=== PATIENT | female | born 1940 | race Caucasian/White ===

== ENCOUNTER → 2016-09-07 | Outpatient (CLI) | payer MEDICARE ==
[2016-09-07 09:48] LABS: CH 30.4; CHCM 32.3; HCT 40.5 % (34.0-46.0); HGB 12.6 gm/dL (11.4-16.0); MCH 29.4 pg (25.0-35.0); MCV 94.7 fL (80.0-100.0); Mean Platelet Volume 7.4; RBC 4.28 m/uL (3.80-5.40); RDW 15.5 % (11.5-15.5); WBC 8.4 k/uL (3.8-10.6)
[2016-09-07 10:06] LABS: Particle Count 1145; UA Billing (MACRO vs. MICRO) MICRO
[2016-09-07 11:38] LABS: Calcium 9.8 mg/dL (8.4-10.2); Magnesium 1.8 mg/dL (1.6-2.3); Phosphorous 3.6 mg/dL (2.5-4.5); Potassium 4.6 mmol/L (3.5-5.1)
[2016-09-07 11:46] LABS: Creatinine,Urine Random 165.5 mg/dL
[2016-09-07 11:47] LABS: % Iron Saturation 19.3 % (20-50)
== END | disposition home or self-care (01) ==
LOC: LABWHC1 09:01
PROVIDERS: ATTEND Nurse Practitioner Family
DX: N18.3 Chronic kidney disease, stage 3 (moderate) (principal); D64.9 Anemia, unspecified; N25.81 Secondary hyperparathyroidism of renal origin; N39.0 Urinary tract infection, site not specified
CPT/HCPCS: 36415; 80048; 81001; 82306; 82570; 82728; 83540; 83550; 83735; 83970; 84100; 84156; 84550; 85027

== ENCOUNTER → 2016-09-10 | Outpatient (CLI) | payer MEDICARE ==
--- NOTE | 2016-09-13 06:55 | XR ---
EXAMINATION TYPE: XR cervical spine comp DATE OF EXAM ORDERED: 09/10/2016 10:31 AM HISTORY: Left arm pain. COMPARISON: Previous study dated 08/27/2013. FINDINGS: Vertebral body height and alignment are maintained. Atlantoaxial relationships are not halie ntified. The spaces are well-maintained. Intervertebral foramina are well maintained. There is mild u ncovertebral joint disease. IMPRESSION: 1. NO ACUTE OSSEOUS LESION. 2. MINIMAL DEGENERATIVE CHANGE.
== END | disposition home or self-care (01) ==
LOC: RADXRYALE 10:16
PROVIDERS: ATTEND Family Medicine
DX: M47.812 Spondylosis without myelopathy or radiculopathy, cervical region (principal)
CPT/HCPCS: 72050

== ENCOUNTER → 2017-01-04 | Outpatient (CLI) | payer MEDICARE ==
[2017-01-04 09:13] LABS: Basophils # (A) 0.1 k/uL (0-0.2); Basophils % (A) 1 %; CH 30.6; CHCM 33.1; Eosinophils # (A) 0.3 k/uL (0-0.7); Eosinophils % (A) 4 %; HCT 40.5 % (34.0-46.0); HDW 2.69; Luc # (Auto) 0.23; Luc % (Auto) 3; Lymphocytes # (A) 1.5 k/uL (1.0-4.8); Lymphocytes % (A) 22 %; MCHC 32.2 g/dL (31.0-37.0); MCV 93.1 fL (80.0-100.0); Mean Platelet Volume 6.7; Monocytes # (A) 0.4 k/uL (0-1.0); Monocytes % (A) 5 %; Neutrophils # (A) 4.4 k/uL (1.3-7.7); Neutrophils % (A) 65 %; RBC 4.35 m/uL (3.80-5.40); RDW 15.7 % (11.5-15.5); WBC 6.8 k/uL (3.8-10.6); WBC (Perox) 6.91
[2017-01-04 10:04] LABS: Appearance,Urine Cloudy (Clear); Bacteria,Urine Moderate /hpf; Bilirubin,Urine Negative (Negative); Glucose,Urine (UA) Negative (Negative); Ketones,Urine Negative (Negative); Leukocyte Esterase,Urine Large (Negative); Mucus,Urine Rare /hpf; Nitrite,Urine Negative (Negative); PH, Urine 5.5 (5.0-8.0); Particle Count 6372; Protein,Urine Trace (Negative); RBC,Urine 2 /hpf (0-5); Specific Gravity,Urine 1.015 (1.001-1.035); Squamous Epithelial Cell,Urine 5 /hpf (0-4); UA Billing (MACRO vs. MICRO) MICRO; Urobilinogen,Urine <2.0 mg/dL (<2.0); WBC,Urine 122 /hpf (0-5)
[2017-01-04 10:55] LABS: Calcium 9.8 mg/dL (8.4-10.2); Magnesium 1.8 mg/dL (1.6-2.3); Phosphorous 3.5 mg/dL (2.5-4.5); Potassium 4.5 mmol/L (3.5-5.1); Uric Acid 5.4 mg/dL (3.7-7.4)
[2017-01-04 11:06] LABS: % Iron Saturation 24.7 % (20-50)
[2017-01-06 11:15] LABS: Mis test requested (Blood) Kappa/Lambda FLC
== END | disposition home or self-care (01) ==
LOC: LABWHC1 08:42
PROVIDERS: ATTEND Internal Medicine Nephrology
DX: D47.2 Monoclonal gammopathy (principal); I67.89 Other cerebrovascular disease; E78.5 Hyperlipidemia, unspecified; I10 Essential (primary) hypertension; N18.4 Chronic kidney disease, stage 4 (severe); D50.9 Iron deficiency anemia, unspecified; E55.9 Vitamin D deficiency, unspecified; M10.9 Gout, unspecified; N39.0 Urinary tract infection, site not specified
CPT/HCPCS: 36415; 80048; 81001; 82306; 82728; 82784; 83540; 83550; 83735; 83970; 84100; 84165; 84550; 85025; 86334; 86335

== ENCOUNTER → 2017-01-28 | Outpatient (CLI) | payer MEDICARE ==
--- NOTE | 2017-01-28 15:12 | US ---
EXAMINATION TYPE: US kidneys/renal and bladder DATE OF EXAM: 01/28/2017 COMPARISON: NONE CLINICAL HISTORY: N18.4 CKD. EXAM MEASUREMENTS: Right Kidney: 11.2 x 5.3 x 5.6 cm Left Kidney: 12.1 x 5.1 x 6.4 cm Right Kidney: difficult to see, blends in with surrounding tissue, multiple cystic areas throughout. Left Kidney: difficult to see, blends in with surrounding tissue, multiple cystic areas throughout. Bladder: wnl There is no evidence for hydronephrosis at this point in time. Mild renal parenchymal thinning No nep hrolithiasis is seen. Multiple cortical cysts are noted. The urinary bladder is anechoic. Bilateral ureteral jets are seen. IMPRESSION: Renal parenchymal thinning with multiple cortical cysts noted.
== END | disposition home or self-care (01) ==
LOC: RADUSWWP 14:06
PROVIDERS: ATTEND Internal Medicine Nephrology
DX: N28.1 Cyst of kidney, acquired (principal)
CPT/HCPCS: 76770

== ENCOUNTER → 2017-04-05 | Outpatient (CLI) | payer MEDICARE ==
[2017-04-05 09:36] LABS: Anisocytosis Slight; Basophils # (A) 0.1 k/uL (0-0.2); Basophils % (A) 1 %; CHCM 33.4; Eosinophils # (A) 0.4 k/uL (0-0.7); Eosinophils % (A) 5 %; HCT 43.9 % (34.0-46.0); HDW 2.62; HGB 14.2 gm/dL (11.4-16.0); Luc # (Auto) 0.17; Luc % (Auto) 3; Lymphocytes # (A) 1.6 k/uL (1.0-4.8); Lymphocytes % (A) 23 %; MCH 30.2 pg (25.0-35.0); MCHC 32.3 g/dL (31.0-37.0); MCV 93.3 fL (80.0-100.0); Mean Platelet Volume 7.6; Monocytes # (A) 0.4 k/uL (0-1.0); Monocytes % (A) 6 %; Neutrophils # (A) 4.3 k/uL (1.3-7.7); Neutrophils % (A) 62 %; RDW 16.5 % (11.5-15.5); WBC 6.8 k/uL (3.8-10.6); WBC (Perox) 6.98
[2017-04-05 09:52] LABS: Appearance,Urine Clear (Clear); Bilirubin,Urine Negative (Negative); Glucose,Urine (UA) Negative (Negative); Ketones,Urine Negative (Negative); Leukocyte Esterase,Urine Trace (Negative); Mucus,Urine Rare /hpf; Nitrite,Urine Negative (Negative); Particle Count 2156; Protein,Urine Trace (Negative); Specific Gravity,Urine 1.015 (1.001-1.035); Squamous Epithelial Cell,Urine 6 /hpf (0-4); UA Billing (MACRO vs. MICRO) MICRO; Urobilinogen,Urine <2.0 mg/dL (<2.0); WBC,Urine 2 /hpf (0-5)
[2017-04-05 09:54] LABS: Calcium 10.3 mg/dL (8.4-10.2); Magnesium 1.8 mg/dL (1.6-2.3); Phosphorous 4.3 mg/dL (2.5-4.5); Potassium 4.4 mmol/L (3.5-5.1); Uric Acid 6.3 mg/dL (3.7-7.4)
[2017-04-05 10:03] LABS: % Iron Saturation 19.9 % (20-50)
== END | disposition home or self-care (01) ==
LOC: LABWHC1 08:52
PROVIDERS: ATTEND Nurse Practitioner Family
DX: N18.4 Chronic kidney disease, stage 4 (severe) (principal); E55.9 Vitamin D deficiency, unspecified; D50.9 Iron deficiency anemia, unspecified; N25.81 Secondary hyperparathyroidism of renal origin; M10.9 Gout, unspecified; N39.0 Urinary tract infection, site not specified
CPT/HCPCS: 36415; 80048; 81001; 82306; 82728; 83540; 83550; 83735; 83970; 84100; 84550; 85025

== ENCOUNTER → 2017-06-06 | Outpatient (CLI) | payer MEDICARE ==
--- NOTE | 2017-06-06 21:36 | XR ---
EXAMINATION TYPE: XR chest 2V DATE OF EXAM: 06/06/2017 COMPARISON: 05/27/2017 HISTORY: 76-year-old female with shortness of breath, Hospital follow-up TECHNIQUE: Frontal and lateral views FINDINGS: Heart is upper limits of normal in size. Mild elongation of the thoracic aorta. Mild interstitial pro minence has a chronic appearance. Strandy atelectasis left base. No consolidation or pleural effusion . IMPRESSION: No acute cardiopulmonary processes.
== END | disposition home or self-care (01) ==
LOC: RADXRYALE 09:36
PROVIDERS: ATTEND Physician Assistant Medical
DX: R06.02 Shortness of breath (principal)
CPT/HCPCS: 71020

== ENCOUNTER → 2017-06-11 | Outpatient (CLI) | payer MEDICARE | END | disposition home or self-care (01) | LOC: LABWHC1 09:00 | PROVIDERS: ATTEND Internal Medicine Nephrology | DX: E87.2 Acidosis (principal) | CPT/HCPCS: 36415; 83605 ==

== ENCOUNTER → 2017-08-23 | Outpatient (CLI) | payer MEDICARE ==
--- NOTE | 2017-08-23 11:22 | BD ---
EXAMINATION TYPE: MG DEXA axial skeleton. DATE OF EXAM: 08/23/2017 CLINICAL HISTORY: Height: 64 inches Weight: 184 FRAX RISK QUESTIONS: Alcohol (3 or more units per day): no Family History (Parent hip fracture): mother did not...unsure about father Glucocorticoids (More than 3mos): not now (Ex: prednisone, prednisolone, methylprednisolone, dexamethasone, and hydrocortisone). History of Fracture in Adulthood: no Secondary Osteoporosis: 1. Type 1 Diabetes: no 2. Hyperthyroidism: no 3. Menopause before 45: no 4. Malnutrition: no 5. Chronic liver disease: no Rheumatoid Arthritis: no Current Tobacco Use: no RISK FACTORS HISTORY OF: Family History of Osteoporosis: not to knowledge of patient Active: yes Diet low in dairy products/other sources of calcium: no Postmenopausal woman: yes Take estrogen and/or progesterone medications: not now How long: age 55 -71 Lost more than 2 inches in height since high school: no Frequent falls: no Poor Health: no Hyperparathyroidism: no Adrenal Insufficiency: no MEDICATIONS: Prednisone or other steroids: no Thyroid Medications: no Osteoporosis Medications: no Additional Medications: Vitamin D EXAM MEASUREMENTS: Bone mineral densitometry was performed using the [employer] System. Bone mineral density as measured about the Lumbar spine is: ----- L1-L4(G/cm2): 1.524 T Score Values are as follows: ----- L2: 2.5 ----- L3: 4.1 ----- L4: 2.9 ----- L1-L4: 2.9 Bone mineral density has: Increased 0.6% since study of: 04/18/2015 Bone mineral density about the R hip (g/cm2): 0.833 Bone mineral density about the L hip (g/cm2): 0.808 T Score values are as follows: -----R Neck: -1.5 -----L Neck: -1.7 -----R Total: -1.2 -----L Total: -0.9 Bone mineral density has: Decreased -1.7% since study of: 04/18/2015 IMPRESSION: No evidence for osteoporosis or osteopenia. NOTE: T-SCORE=SD OF THE YOUNG ADULT MEAN.
--- NOTE | 2017-08-24 13:33 | MM ---
Reason for exam: screening (asymptomatic). Last mammogram was performed 2 years and 4 months ago. History: Patient is postmenopausal. Family history of premenopausal breast cancer in maternal aunt. Benign excisional biopsy of the left breast, September 02, 1997. Taking estrogen for 16 years 5 months beginning at age 55. Physical Findings: A clinical breast exam by your physician is recommended on an annual basis and results should be correlated with mammographic findings. MG 3D Screening Mammo W/Cad Bilateral CC and MLO view(s) were taken. Prior study comparison: April 18, 2015, bilateral MG screening mammo w CAD. July 24, 2012, bilateral digital screening mammo w/CAD. There are scattered fibroglandular densities. There is no discrete abnormality. ASSESSMENT: Negative, BI-RAD 1 RECOMMENDATION: Routine screening mammogram of both breasts in 1 year.
== END | disposition home or self-care (01) ==
LOC: RADMAMWWP 09:55
PROVIDERS: ATTEND Obstetrics & Gynecology
DX: Z12.31 Encounter for screening mammogram for malignant neoplasm of breast (principal); M81.0 Age-related osteoporosis without current pathological fracture
CPT/HCPCS: 77063; 77067; 77080

== ENCOUNTER → 2017-10-06 | Outpatient (CLI) | payer MEDICARE ==
[2017-10-06 08:51] LABS: Anisocytosis Slight; Basophils # (A) 0.1 k/uL (0-0.2); Basophils % (A) 1 %; Eosinophils # (A) 0.4 k/uL (0-0.7); Eosinophils % (A) 5 %; HCT 40.6 % (34.0-46.0); HGB 12.7 gm/dL (11.4-16.0); Lymphocytes # (A) 1.7 k/uL (1.0-4.8); Lymphocytes % (A) 21 %; MCHC 31.2 g/dL (31.0-37.0); Mean Platelet Volume 7.1; Monocytes # (A) 0.4 k/uL (0-1.0); Monocytes % (A) 6 %; Neutrophils # (A) 5.1 k/uL (1.3-7.7); Neutrophils % (A) 66 %; Platelet Count 299 k/uL (150-450); RBC 4.53 m/uL (3.80-5.40); RDW 16.3 % (11.5-15.5); WBC 7.8 k/uL (3.8-10.6)
[2017-10-06 08:56] LABS: Appearance,Urine Cloudy (Clear); Bacteria,Urine Moderate /hpf; Bilirubin,Urine Negative (Negative); Blood,Urine Negative (Negative); Color,Urine Yellow; Glucose,Urine (UA) Negative (Negative); Ketones,Urine Negative (Negative); Leukocyte Esterase,Urine Large (Negative); Mucus,Urine Rare /hpf; PH, Urine 5.5 (5.0-8.0); Protein,Urine Trace (Negative); Specific Gravity,Urine 1.013 (1.001-1.035); Squamous Epithelial Cell,Urine 31 /hpf (0-4); Urobilinogen,Urine <2.0 mg/dL (<2.0); WBC,Urine >182 /hpf (0-5)
[2017-10-06 08:58] LABS: MCV 89.8 fL (80.0-100.0)
[2017-10-06 09:05] LABS: Calcium 9.8 mg/dL (8.4-10.2); Phosphorus 3.6 mg/dL (2.5-4.5); Potassium 4.5 mmol/L (3.5-5.1); Uric Acid 5.5 mg/dL (3.7-7.4)
[2017-10-06 16:55] LABS: Parathyroid Hormone Intact 109.8 pg/mL (14.0-72.0)
[2017-10-06 16:59] LABS: Iron Saturation 19.03 (12.00-45.00)
== END | disposition home or self-care (01) ==
LOC: LABWHC1 08:25
PROVIDERS: ATTEND Nurse Practitioner Family
DX: N39.0 Urinary tract infection, site not specified (principal); M10.9 Gout, unspecified; N18.4 Chronic kidney disease, stage 4 (severe); D50.9 Iron deficiency anemia, unspecified; N25.81 Secondary hyperparathyroidism of renal origin
CPT/HCPCS: 36415; 80048; 81001; 82306; 82728; 83540; 83550; 83735; 83970; 84100; 84550; 85025

== ENCOUNTER → 2018-01-19 | Outpatient (CLI) | payer MEDICARE ==
[2018-01-19 09:25] LABS: Basophils # (A) 0.1 k/uL (0-0.2); Basophils % (A) 1 %; Eosinophils # (A) 0.4 k/uL (0-0.7); Eosinophils % (A) 5 %; HCT 39.3 % (34.0-46.0); HGB 12.9 gm/dL (11.4-16.0); Lymphocytes # (A) 1.6 k/uL (1.0-4.8); Lymphocytes % (A) 22 %; MCH 29.8 pg (25.0-35.0); MCHC 32.7 g/dL (31.0-37.0); MCV 91.2 fL (80.0-100.0); Mean Platelet Volume 7.3; Monocytes # (A) 0.5 k/uL (0-1.0); Monocytes % (A) 7 %; Neutrophils # (A) 4.9 k/uL (1.3-7.7); Neutrophils % (A) 64 %; Platelet Count 272 k/uL (150-450); RBC 4.31 m/uL (3.80-5.40); RDW 15.9 % (11.5-15.5); WBC 7.6 k/uL (3.8-10.6)
[2018-01-19 09:28] LABS: Appearance,Urine Cloudy (Clear); Bacteria,Urine Occasional /hpf; Bilirubin,Urine Negative (Negative); Blood,Urine Negative (Negative); Color,Urine Yellow; Glucose,Urine (UA) Negative (Negative); Ketones,Urine Negative (Negative); Leukocyte Esterase,Urine Large (Negative); Mucus,Urine Rare /hpf; Nitrite,Urine Negative (Negative); PH, Urine 5.5 (5.0-8.0); Protein,Urine Trace (Negative); RBC,Urine 1 /hpf (0-5); Specific Gravity,Urine 1.014 (1.001-1.035); Squamous Epithelial Cell,Urine 17 /hpf (0-4); Urobilinogen,Urine <2.0 mg/dL (<2.0); WBC,Urine 76 /hpf (0-5)
[2018-01-19 09:51] LABS: Albumin 4.2 g/dL (3.5-5.0); Calcium 9.6 mg/dL (8.4-10.2); Magnesium 1.7 mg/dL (1.6-2.3); Phosphorus 3.6 mg/dL (2.5-4.5); Potassium 4.7 mmol/L (3.5-5.1); Uric Acid 5.2 mg/dL (3.7-7.4)
[2018-01-19 16:29] LABS: Iron Saturation 23.05 (12.00-45.00)
[2018-01-19 16:37] LABS: Vitamin D 25 Hydroxy 37.5 ng/mL (30.0-100.0)
[2018-01-19 17:25] LABS: Parathyroid Hormone Intact 174.4 pg/mL (14.0-72.0)
== END | disposition home or self-care (01) ==
LOC: LABWHC1 08:47
PROVIDERS: ATTEND Internal Medicine Nephrology
DX: E55.9 Vitamin D deficiency, unspecified (principal); N18.4 Chronic kidney disease, stage 4 (severe); D63.1 Anemia in chronic kidney disease; M10.9 Gout, unspecified; N39.0 Urinary tract infection, site not specified
CPT/HCPCS: 36415; 80048; 81001; 82040; 82306; 82728; 83540; 83550; 83735; 83970; 84100; 84550; 85025

== ENCOUNTER → 2018-04-20 | Outpatient (CLI) | payer MEDICARE ==
[2018-04-20 11:00] LABS: Albumin 4.1 g/dL (3.5-5.0); Calcium 9.5 mg/dL (8.4-10.2); Magnesium 1.8 mg/dL (1.6-2.3); Phosphorus 3.7 mg/dL (2.5-4.5); Potassium 4.7 mmol/L (3.5-5.1); Uric Acid 6.1 mg/dL (3.7-7.4)
[2018-04-20 17:36] LABS: Iron Saturation 22.54 (12.00-45.00)
[2018-04-20 17:45] LABS: Vitamin D 25 Hydroxy 40.6 ng/mL (30.0-100.0)
[2018-04-20 19:16] LABS: Parathyroid Hormone Intact 165.6 pg/mL (14.0-72.0)
== END | disposition home or self-care (01) ==
LOC: LABWHC1 09:16
PROVIDERS: ATTEND Nurse Practitioner Family
DX: E55.9 Vitamin D deficiency, unspecified (principal); D63.1 Anemia in chronic kidney disease; N18.4 Chronic kidney disease, stage 4 (severe); M10.9 Gout, unspecified
CPT/HCPCS: 36415; 80048; 82040; 82306; 82728; 83540; 83550; 83735; 83970; 84100; 84550

== ENCOUNTER → 2018-08-03 | Outpatient (CLI) | payer MEDICARE ==
[2018-08-03 10:25] LABS: Anisocytosis Slight; Basophils # (A) 0.1 k/uL (0-0.2); Basophils % (A) 1 %; Eosinophils # (A) 0.5 k/uL (0-0.7); Eosinophils % (A) 6 %; HCT 40.8 % (34.0-46.0); HGB 12.7 gm/dL (11.4-16.0); Lymphocytes # (A) 1.6 k/uL (1.0-4.8); Lymphocytes % (A) 19 %; MCH 29.2 pg (25.0-35.0); MCHC 31.1 g/dL (31.0-37.0); MCV 93.8 fL (80.0-100.0); Monocytes # (A) 0.5 k/uL (0-1.0); Monocytes % (A) 6 %; Neutrophils # (A) 5.4 k/uL (1.3-7.7); Neutrophils % (A) 66 %; Platelet Count 296 k/uL (150-450); RBC 4.34 m/uL (3.80-5.40); RDW 16.1 % (11.5-15.5); WBC 8.2 k/uL (3.8-10.6)
[2018-08-03 17:16] LABS: Parathyroid Hormone Intact 176.4 pg/mL (14.0-72.0)
[2018-08-03 17:18] LABS: Albumin 4.3 g/dL (3.80-4.90); Anion Gap 10.3 mmol/L (4.00-12.00); Calcium 9.1 mg/dL (8.7-10.3); Carbon Dioxide 19.7 mmol/L (21.6-31.8); Magnesium 1.8 mg/dL (1.5-2.4); Phosphorus 3.5 mg/dL (2.4-5.1); Potassium 4.4 mmol/L (3.5-5.5); Uric Acid 5.4 mg/dL (2.9-7.7)
[2018-08-03 17:33] LABS: Iron Saturation 27.07 (12.00-45.00)
== END ==
LOC: LABWHC1 09:02
PROVIDERS: ATTEND Nurse Practitioner Family
DX: E55.9 Vitamin D deficiency, unspecified (principal); N25.81 Secondary hyperparathyroidism of renal origin; D63.1 Anemia in chronic kidney disease; N18.4 Chronic kidney disease, stage 4 (severe)
CPT/HCPCS: 36415; 80048; 82040; 82728; 83540; 83550; 83735; 83970; 84100; 84550; 85025

== ENCOUNTER → 2018-11-02 | Outpatient (CLI) | payer MEDICARE ==
[2018-11-02 09:56] LABS: Anisocytosis Slight; Basophils # (A) 0.1 k/uL (0-0.2); Basophils % (A) 1 %; Eosinophils # (A) 0.4 k/uL (0-0.7); Eosinophils % (A) 6 %; HCT 38.7 % (34.0-46.0); HGB 12.6 gm/dL (11.4-16.0); Lymphocytes # (A) 1.4 k/uL (1.0-4.8); Lymphocytes % (A) 19 %; MCH 29.6 pg (25.0-35.0); MCHC 32.5 g/dL (31.0-37.0); MCV 91.1 fL (80.0-100.0); Mean Platelet Volume 7.2; Monocytes # (A) 0.4 k/uL (0-1.0); Monocytes % (A) 5 %; Neutrophils # (A) 4.8 k/uL (1.3-7.7); Neutrophils % (A) 67 %; Platelet Count 300 k/uL (150-450); RBC 4.25 m/uL (3.80-5.40); RDW 16.9 % (11.5-15.5); WBC 7.1 k/uL (3.8-10.6)
[2018-11-02 11:53] LABS: Appearance,Urine Cloudy (Clear); Bacteria,Urine Many /hpf; Bilirubin,Urine Negative (Negative); Blood,Urine Negative (Negative); Color,Urine Yellow; Glucose,Urine (UA) Negative (Negative); Ketones,Urine Negative (Negative); Leukocyte Esterase,Urine Large (Negative); Nitrite,Urine Negative (Negative); Protein,Urine Trace (Negative); Specific Gravity,Urine 1.017 (1.001-1.035); Squamous Epithelial Cell,Urine 22 /hpf (0-4); Urobilinogen,Urine <2.0 mg/dL (<2.0); WBC,Urine >182 /hpf (0-5)
[2018-11-02 16:31] LABS: Parathyroid Hormone Intact 190.3 pg/mL (14.0-72.0)
[2018-11-02 16:52] LABS: Iron Saturation 21.22 (12.00-45.00)
[2018-11-02 16:55] LABS: Creatinine,Urine Random 121.6 mg/dL
[2018-11-02 16:59] LABS: Vitamin D 25 Hydroxy 51.4 ng/mL (30.0-100.0)
[2018-11-02 17:03] LABS: Total Protein,Urine Random 41.5 mg/dL (0.0-13.5)
[2018-11-02 17:06] LABS: Albumin 4.4 g/dL (3.80-4.90); Anion Gap 8.5 mmol/L (4.00-12.00); Calcium 9.4 mg/dL (8.7-10.3); Carbon Dioxide 22.5 mmol/L (21.6-31.8); Magnesium 1.7 mg/dL (1.5-2.4); Phosphorus 3.4 mg/dL (2.4-5.1); Potassium 4.4 mmol/L (3.5-5.5); Uric Acid 5.7 mg/dL (2.9-7.7)
== END | disposition home or self-care (01) ==
LOC: LABWHC1 08:49
PROVIDERS: ATTEND Internal Medicine Nephrology
DX: N18.4 Chronic kidney disease, stage 4 (severe) (principal); D63.1 Anemia in chronic kidney disease; E55.9 Vitamin D deficiency, unspecified; E21.3 Hyperparathyroidism, unspecified; M10.9 Gout, unspecified; N39.0 Urinary tract infection, site not specified; R80.9 Proteinuria, unspecified
CPT/HCPCS: 36415; 80048; 81001; 82040; 82306; 82570; 82728; 83540; 83550; 83735; 83970; 84100; 84156; 84550; 85025

== ENCOUNTER → 2019-01-30 | Outpatient (CLI) | payer MEDICARE ==
[2019-01-30 10:22] LABS: Anisocytosis Slight; Basophils # (A) 0.1 k/uL (0-0.2); Basophils % (A) 1 %; Eosinophils # (A) 0.5 k/uL (0-0.7); Eosinophils % (A) 7 %; HCT 39.4 % (34.0-46.0); HGB 12.5 gm/dL (11.4-16.0); Hypochromasia Slight; Lymphocytes # (A) 1.4 k/uL (1.0-4.8); Lymphocytes % (A) 19 %; MCH 29.9 pg (25.0-35.0); MCHC 31.8 g/dL (31.0-37.0); MCV 94.1 fL (80.0-100.0); Mean Platelet Volume 7.5; Monocytes # (A) 0.4 k/uL (0-1.0); Monocytes % (A) 6 %; Neutrophils # (A) 4.6 k/uL (1.3-7.7); Neutrophils % (A) 64 %; Platelet Count 260 k/uL (150-450); RBC 4.18 m/uL (3.80-5.40); RDW 17.4 % (11.5-15.5); WBC 7.3 k/uL (3.8-10.6)
[2019-01-30 10:37] LABS: Appearance,Urine Cloudy (Clear); Bilirubin,Urine Negative (Negative); Blood,Urine Negative (Negative); Color,Urine Yellow; Glucose,Urine (UA) Negative (Negative); Ketones,Urine Negative (Negative); Leukocyte Esterase,Urine Negative (Negative); Mucus,Urine Rare /hpf; Nitrite,Urine Negative (Negative); PH, Urine 6.5 (5.0-8.0); Protein,Urine 1+ (Negative); Specific Gravity,Urine 1.013 (1.001-1.035); Squamous Epithelial Cell,Urine 42 /hpf (0-4); Urobilinogen,Urine <2.0 mg/dL (<2.0); WBC,Urine 1 /hpf (0-5)
[2019-01-30 17:33] LABS: Creatinine,Urine Random 97.5 mg/dL
[2019-01-30 17:57] LABS: Iron Saturation 27.08 (12.00-45.00)
[2019-01-30 18:09] LABS: African American GFR (CKD) 19.8 (60.0-200.0); Albumin 4.2 g/dL (3.80-4.90); Anion Gap 12.7 mmol/L (4.00-12.00); BUN/Creat Ratio 14.23 Ratio (12.00-20.00); Calcium 9.4 mg/dL (8.7-10.3); Carbon Dioxide 21.3 mmol/L (21.6-31.8); Magnesium 1.8 mg/dL (1.5-2.4); Phosphorus 2.6 mg/dL (2.4-5.1); Potassium 4.6 mmol/L (3.5-5.5); Uric Acid 5.9 mg/dL (2.9-7.7)
[2019-01-30 19:02] LABS: Parathyroid Hormone Intact 189.2 pg/mL (14.0-72.0)
== END | disposition home or self-care (01) ==
LOC: LABWHC1 09:14
PROVIDERS: ATTEND Nurse Practitioner Family
DX: N25.81 Secondary hyperparathyroidism of renal origin (principal); N18.4 Chronic kidney disease, stage 4 (severe); D63.1 Anemia in chronic kidney disease; M10.9 Gout, unspecified; N39.0 Urinary tract infection, site not specified; R80.9 Proteinuria, unspecified
CPT/HCPCS: 36415; 80048; 81001; 82040; 82306; 82570; 82728; 83540; 83550; 83735; 83970; 84100; 84156; 84550; 85025

== ENCOUNTER → 2019-05-16 | Outpatient (CLI) | payer MEDICARE ==
[2019-05-16 11:04] LABS: Basophils % (A) 1 %; Eosinophils # (A) 0.4 k/uL (0-0.7); Eosinophils % (A) 6 %; HCT 39.9 % (34.0-46.0); HGB 12.9 gm/dL (11.4-16.0); Hypochromasia Slight; Lymphocytes # (A) 1.3 k/uL (1.0-4.8); Lymphocytes % (A) 18 %; MCH 30.8 pg (25.0-35.0); MCHC 32.2 g/dL (31.0-37.0); MCV 95.4 fL (80.0-100.0); Mean Platelet Volume 6.2; Monocytes # (A) 0.4 k/uL (0-1.0); Monocytes % (A) 6 %; Neutrophils # (A) 4.7 k/uL (1.3-7.7); Neutrophils % (A) 68 %; Platelet Count 270 k/uL (150-450); RBC 4.18 m/uL (3.80-5.40); RDW 15.6 % (11.5-15.5)
[2019-05-16 12:42] LABS: Appearance,Urine Cloudy (Clear); Bacteria,Urine Rare /hpf; Bilirubin,Urine Negative (Negative); Blood,Urine Negative (Negative); Color,Urine Light Yellow; Glucose,Urine (UA) Negative (Negative); Ketones,Urine Negative (Negative); Leukocyte Esterase,Urine Negative (Negative); Mucus,Urine Rare /hpf; Nitrite,Urine Negative (Negative); PH, Urine 5.5 (5.0-8.0); Protein,Urine Trace (Negative); RBC,Urine 1 /hpf (0-5); Specific Gravity,Urine 1.011 (1.001-1.035); Squamous Epithelial Cell,Urine 12 /hpf (0-4); Urobilinogen,Urine <2.0 mg/dL (<2.0); WBC,Urine 2 /hpf (0-5)
[2019-05-16 16:20] LABS: Vitamin D 25 Hydroxy 41.5 ng/mL (30.0-100.0)
[2019-05-16 16:21] LABS: Ferritin 115.9 ng/mL (10.0-291.0)
[2019-05-16 16:38] LABS: African American GFR (CKD) 19.8 (60.0-200.0); Albumin 4.4 g/dL (3.80-4.90); Anion Gap 9.7 mmol/L (4.00-12.00); BUN/Creat Ratio 16.15 Ratio (12.00-20.00); Calcium 9.8 mg/dL (8.7-10.3); Carbon Dioxide 20.3 mmol/L (21.6-31.8); Magnesium 1.8 mg/dL (1.5-2.4); Phosphorus 3.3 mg/dL (2.4-5.1); Potassium 4.7 mmol/L (3.5-5.5); Uric Acid 5.3 mg/dL (2.9-7.7)
[2019-05-16 17:14] LABS: Creatinine,Urine Random 72.9 mg/dL
[2019-05-16 18:22] LABS: Total Protein,Urine Random 17.1 mg/dL (0.0-13.5)
== END | disposition home or self-care (01) ==
LOC: LABWHC1 09:10
PROVIDERS: ATTEND Internal Medicine Nephrology
DX: M10.9 Gout, unspecified (principal); N39.0 Urinary tract infection, site not specified; D63.1 Anemia in chronic kidney disease; N25.81 Secondary hyperparathyroidism of renal origin; N18.4 Chronic kidney disease, stage 4 (severe); R80.9 Proteinuria, unspecified
CPT/HCPCS: 36415; 80048; 81001; 82040; 82306; 82570; 82728; 83540; 83550; 83735; 83970; 84100; 84156; 84550; 85025

== ENCOUNTER → 2019-08-15 | Outpatient (CLI) | payer MEDICARE ==
[2019-08-15 09:46] LABS: Appearance,Urine Cloudy (Clear); Bilirubin,Urine Negative (Negative); Blood,Urine Negative (Negative); Color,Urine Yellow; Glucose,Urine (UA) Negative (Negative); Ketones,Urine Negative (Negative); Leukocyte Esterase,Urine Negative (Negative); Mucus,Urine Rare /hpf; Nitrite,Urine Negative (Negative); PH, Urine 5.5 (5.0-8.0); Protein,Urine Trace (Negative); RBC,Urine 1 /hpf (0-5); Specific Gravity,Urine 1.014 (1.001-1.035); Squamous Epithelial Cell,Urine 14 /hpf (0-4); Urobilinogen,Urine <2.0 mg/dL (<2.0); WBC,Urine 1 /hpf (0-5)
[2019-08-15 10:00] LABS: Basophils % (A) 0 %; Eosinophils # (A) 0.4 k/uL (0-0.7); Eosinophils % (A) 5 %; HCT 38.1 % (34.0-46.0); HGB 12.3 gm/dL (11.4-16.0); Lymphocytes # (A) 1.4 k/uL (1.0-4.8); Lymphocytes % (A) 16 %; MCH 30.7 pg (25.0-35.0); MCHC 32.3 g/dL (31.0-37.0); MCV 94.9 fL (80.0-100.0); Monocytes # (A) 0.6 k/uL (0-1.0); Monocytes % (A) 7 %; Neutrophils # (A) 6.1 k/uL (1.3-7.7); Neutrophils % (A) 70 %; Platelet Count 265 k/uL (150-450); RBC 4.01 m/uL (3.80-5.40); RDW 15.9 % (11.5-15.5); WBC 8.8 k/uL (3.8-10.6)
[2019-08-15 10:58] LABS: Protein/Creatinine Ratio,Urine 0.2
[2019-08-15 16:33] LABS: Ferritin 200.5 ng/mL (10.0-291.0)
[2019-08-15 16:41] LABS: % Iron Saturation 24.64 (12.00-45.00); African American GFR (CKD) 20.8 (60.0-200.0); Albumin 4.1 g/dL (3.80-4.90); Anion Gap 11.8 mmol/L (4.00-12.00); BUN/Creat Ratio 16.4 Ratio (12.00-20.00); Calcium 9.1 mg/dL (8.7-10.3); Carbon Dioxide 22.2 mmol/L (21.6-31.8); Magnesium 1.7 mg/dL (1.5-2.4); Non-African American GFR(CKD) 17.9 (60.0-200.0); Phosphorus 3.4 mg/dL (2.4-5.1); Potassium 4.4 mmol/L (3.5-5.5); Uric Acid 5.6 mg/dL (2.9-7.7)
== END | disposition home or self-care (01) ==
LOC: LABWHC1 09:06
PROVIDERS: ATTEND Internal Medicine Nephrology
DX: N39.0 Urinary tract infection, site not specified (principal); N18.4 Chronic kidney disease, stage 4 (severe); D63.1 Anemia in chronic kidney disease; M10.9 Gout, unspecified; E83.39 Other disorders of phosphorus metabolism; N25.81 Secondary hyperparathyroidism of renal origin; E55.9 Vitamin D deficiency, unspecified; R80.9 Proteinuria, unspecified
CPT/HCPCS: 36415; 80048; 81001; 82040; 82306; 82570; 82728; 83540; 83550; 83735; 83970; 84100; 84156; 84550; 85025

== ENCOUNTER → 2019-09-05 | Outpatient (CLI) | payer MEDICARE ==
--- NOTE | 2019-09-06 14:14 | MM ---
Reason for exam: screening (asymptomatic). Last mammogram was performed 2 years ago. History: Patient is postmenopausal. Family history of premenopausal breast cancer in maternal aunt. Benign excisional biopsy of the left breast, September 02, 1997. Taking estrogen for 16 years 5 months beginning at age 55. Physical Findings: A clinical breast exam by your physician is recommended on an annual basis and results should be correlated with mammographic findings. MG Screening Mammo w CAD Bilateral CC and MLO view(s) were taken. Prior study comparison: August 23, 2017, bilateral MG 3d screening mammo w/cad. April 18, 2015, bilateral MG screening mammo w CAD. There are scattered fibroglandular densities. No significant changes when compared with prior studies. ASSESSMENT: Benign, BI-RAD 2 RECOMMENDATION: Routine screening mammogram of both breasts in 1 year.
== END | disposition home or self-care (01) ==
LOC: RADMAMWWP 16:05
PROVIDERS: ATTEND Family Medicine
DX: Z12.31 Encounter for screening mammogram for malignant neoplasm of breast (principal)
CPT/HCPCS: 77067

== ENCOUNTER → 2019-11-15 | Outpatient (CLI) | payer MEDICARE ==
[2019-11-15 09:10] LABS: Basophils # (A) 0.1 k/uL (0-0.2); Basophils % (A) 1 %; Eosinophils # (A) 0.4 k/uL (0-0.7); Eosinophils % (A) 5 %; HCT 38.8 % (34.0-46.0); HGB 12.3 gm/dL (11.4-16.0); Lymphocytes # (A) 1.4 k/uL (1.0-4.8); Lymphocytes % (A) 17 %; MCH 29.7 pg (25.0-35.0); MCHC 31.7 g/dL (31.0-37.0); MCV 93.7 fL (80.0-100.0); Mean Platelet Volume 7.6; Monocytes # (A) 0.4 k/uL (0-1.0); Monocytes % (A) 5 %; Neutrophils # (A) 5.8 k/uL (1.3-7.7); Neutrophils % (A) 70 %; Platelet Count 271 k/uL (150-450); RBC 4.14 m/uL (3.80-5.40); WBC 8.3 k/uL (3.8-10.6)
[2019-11-15 09:17] LABS: Protein/Creatinine Ratio,Urine 0.147
[2019-11-15 09:20] LABS: Appearance,Urine Cloudy (Clear); Bilirubin,Urine Negative (Negative); Blood,Urine Negative (Negative); Color,Urine Yellow; Glucose,Urine (UA) Negative (Negative); Ketones,Urine Negative (Negative); Leukocyte Esterase,Urine Small (Negative); Mucus,Urine Rare /hpf; Nitrite,Urine Negative (Negative); PH, Urine 5.5 (5.0-8.0); Protein,Urine Trace (Negative); RBC,Urine 1 /hpf (0-5); Specific Gravity,Urine 1.017 (1.001-1.035); Squamous Epithelial Cell,Urine 33 /hpf (0-4); Urobilinogen,Urine <2.0 mg/dL (<2.0); WBC,Urine 6 /hpf (0-5)
[2019-11-15 16:22] LABS: % Iron Saturation 22.67 (12.00-45.00); African American GFR (CKD) 18.8 (60.0-200.0); Anion Gap 11.7 mmol/L (4.00-12.00); BUN/Creat Ratio 15.56 Ratio (12.00-20.00); Calcium 9.3 mg/dL (8.7-10.3); Carbon Dioxide 22.3 mmol/L (21.6-31.8); Magnesium 1.6 mg/dL (1.5-2.4); Non-African American GFR(CKD) 16.2 (60.0-200.0); Phosphorus 3.4 mg/dL (2.4-5.1); Potassium 4.4 mmol/L (3.5-5.5); Uric Acid 4.9 mg/dL (2.9-7.7)
[2019-11-15 16:30] LABS: Ferritin 145.7 ng/mL (10.0-291.0)
== END ==
LOC: LABWHC1 08:36
PROVIDERS: ATTEND Nurse Practitioner Family
DX: N25.81 Secondary hyperparathyroidism of renal origin (principal); N18.4 Chronic kidney disease, stage 4 (severe); M10.9 Gout, unspecified; N39.0 Urinary tract infection, site not specified; D64.9 Anemia, unspecified; R80.9 Proteinuria, unspecified
CPT/HCPCS: 36415; 80048; 81001; 82040; 82306; 82570; 82728; 83540; 83550; 83735; 83970; 84100; 84156; 84550; 85025

== ENCOUNTER → 2020-03-14 | Outpatient (CLI) | payer MEDICARE ==
[2020-03-14 10:10] LABS: Basophils # (A) 0.1 k/uL (0-0.2); Basophils % (A) 1 %; Eosinophils # (A) 0.5 k/uL (0-0.7); Eosinophils % (A) 6 %; HCT 39.2 % (34.0-46.0); HGB 12.3 gm/dL (11.4-16.0); Lymphocytes # (A) 1.4 k/uL (1.0-4.8); Lymphocytes % (A) 17 %; MCH 29.9 pg (25.0-35.0); MCHC 31.3 g/dL (31.0-37.0); MCV 95.5 fL (80.0-100.0); Mean Platelet Volume 7.6; Monocytes # (A) 0.5 k/uL (0-1.0); Monocytes % (A) 6 %; Neutrophils # (A) 5.2 k/uL (1.3-7.7); Neutrophils % (A) 67 %; Platelet Count 263 k/uL (150-450); RDW 15.8 % (11.5-15.5); WBC 7.8 k/uL (3.8-10.6)
[2020-03-14 16:46] LABS: % Iron Saturation 28.21 (12.00-45.00); African American GFR (CKD) 17.2 (60.0-200.0); Albumin 4.2 g/dL (3.80-4.90); Anion Gap 10.3 mmol/L (4.00-12.00); BUN/Creat Ratio 13.45 Ratio (12.00-20.00); Calcium 9.5 mg/dL (8.7-10.3); Carbon Dioxide 21.7 mmol/L (21.6-31.8); Magnesium 1.6 mg/dL (1.5-2.4); Non-African American GFR(CKD) 14.9 (60.0-200.0); Potassium 4.4 mmol/L (3.5-5.5); Uric Acid 5.4 mg/dL (2.9-7.7)
[2020-03-14 16:55] LABS: Ferritin 151.4 ng/mL (10.0-291.0)
== END | disposition home or self-care (01) ==
LOC: LABWHC1 08:55
PROVIDERS: ATTEND Nurse Practitioner Family
DX: N18.4 Chronic kidney disease, stage 4 (severe) (principal); D63.1 Anemia in chronic kidney disease; E55.9 Vitamin D deficiency, unspecified; M10.9 Gout, unspecified; N25.81 Secondary hyperparathyroidism of renal origin
CPT/HCPCS: 36415; 80048; 82040; 82306; 82728; 83540; 83550; 83735; 83970; 84100; 84550; 85025

== ENCOUNTER → 2020-06-24 | Outpatient (CLI) | payer MEDICARE ==
[2020-06-24 10:32] LABS: Basophils # (A) 0.1 k/uL (0-0.2); Basophils % (A) 1 %; Eosinophils # (A) 0.4 k/uL (0-0.7); Eosinophils % (A) 4 %; HCT 39.6 % (34.0-46.0); HGB 12.8 gm/dL (11.4-16.0); Lymphocytes # (A) 1.4 k/uL (1.0-4.8); Lymphocytes % (A) 18 %; MCH 30.5 pg (25.0-35.0); MCHC 32.2 g/dL (31.0-37.0); MCV 94.8 fL (80.0-100.0); Mean Platelet Volume 7.4; Monocytes # (A) 0.4 k/uL (0-1.0); Monocytes % (A) 5 %; Neutrophils # (A) 5.6 k/uL (1.3-7.7); Neutrophils % (A) 70 %; Platelet Count 265 k/uL (150-450); RBC 4.18 m/uL (3.80-5.40); RDW 15.9 % (11.5-15.5); WBC 7.9 k/uL (3.8-10.6)
[2020-06-24 16:04] LABS: % Iron Saturation 32.14 (12.00-45.00); African American GFR (CKD) 13.7 (60.0-200.0); Albumin 4.2 g/dL (3.80-4.90); BUN/Creat Ratio 13.71 Ratio (12.00-20.00); Calcium 9.7 mg/dL (8.7-10.3); Magnesium 1.8 mg/dL (1.5-2.4); Non-African American GFR(CKD) 11.9 (60.0-200.0); Phosphorus 3.4 mg/dL (2.4-5.1); Potassium 4.4 mmol/L (3.5-5.5); Uric Acid 5.6 mg/dL (2.9-7.7)
[2020-06-24 16:12] LABS: Ferritin 154.3 ng/mL (10.0-291.0)
== END | disposition home or self-care (01) ==
LOC: LABWHC1 08:56
PROVIDERS: ATTEND Nurse Practitioner Family
DX: N18.4 Chronic kidney disease, stage 4 (severe) (principal); N25.81 Secondary hyperparathyroidism of renal origin; M10.9 Gout, unspecified; D64.9 Anemia, unspecified
CPT/HCPCS: 36415; 80048; 82040; 82306; 82728; 83540; 83550; 83735; 83970; 84100; 84550; 85025

== ENCOUNTER → 2020-08-05 | Outpatient (CLI) | payer MEDICARE ==
[2020-08-05 15:23] LABS: African American GFR (CKD) 15.9 (60.0-200.0); Anion Gap 8.6 mmol/L (4.00-12.00); BUN/Creat Ratio 14.84 Ratio (12.00-20.00); Calcium 9.3 mg/dL (8.7-10.3); Carbon Dioxide 24.4 mmol/L (21.6-31.8); Non-African American GFR(CKD) 13.7 (60.0-200.0); Potassium 4.4 mmol/L (3.5-5.5)
== END | disposition home or self-care (01) ==
LOC: LABWHC1 09:25
PROVIDERS: ATTEND Nurse Practitioner Family
DX: N18.4 Chronic kidney disease, stage 4 (severe) (principal)
CPT/HCPCS: 36415; 80048

== ENCOUNTER → 2020-08-22 | Outpatient (CLI) | payer MEDICARE ==
[2020-08-22 10:27] LABS: Basophils # (A) 0.1 k/uL (0-0.2); Basophils % (A) 1 %; Eosinophils # (A) 0.5 k/uL (0-0.7); Eosinophils % (A) 7 %; HCT 38.1 % (34.0-46.0); HGB 12.6 gm/dL (11.4-16.0); Lymphocytes # (A) 1.6 k/uL (1.0-4.8); Lymphocytes % (A) 21 %; MCH 31.5 pg (25.0-35.0); MCHC 33.2 g/dL (31.0-37.0); MCV 94.7 fL (80.0-100.0); Mean Platelet Volume 7.4; Monocytes # (A) 0.5 k/uL (0-1.0); Monocytes % (A) 6 %; Neutrophils # (A) 4.8 k/uL (1.3-7.7); Neutrophils % (A) 62 %; Platelet Count 248 k/uL (150-450); RBC 4.02 m/uL (3.80-5.40); RDW 15.9 % (11.5-15.5); WBC 7.8 k/uL (3.8-10.6)
[2020-08-22 10:42] LABS: Appearance,Urine Cloudy (Clear); Bilirubin,Urine Negative (Negative); Blood,Urine Negative (Negative); Color,Urine Yellow; Glucose,Urine (UA) Negative (Negative); Ketones,Urine Negative (Negative); Leukocyte Esterase,Urine Small (Negative); Mucus,Urine Rare /hpf; Nitrite,Urine Negative (Negative); PH, Urine 5.5 (5.0-8.0); Protein,Urine Trace (Negative); RBC,Urine <1 /hpf (0-5); Specific Gravity,Urine 1.015 (1.001-1.035); Squamous Epithelial Cell,Urine 37 /hpf (0-4); Urobilinogen,Urine <2.0 mg/dL (<2.0); WBC,Urine 7 /hpf (0-5)
[2020-08-22 15:57] LABS: Ferritin 174.6 ng/mL (10.0-291.0)
[2020-08-22 16:56] LABS: % Iron Saturation 31.38 (12.00-45.00); African American GFR (CKD) 14.8 (60.0-200.0); Albumin 4.2 g/dL (3.80-4.90); Albumin/Globulin Ratio 1.91 (1.60-3.17); Anion Gap 11.5 mmol/L (4.00-12.00); BUN/Creat Ratio 13.33 Ratio (12.00-20.00); Calcium 9.9 mg/dL (8.7-10.3); Carbon Dioxide 22.5 mmol/L (21.6-31.8); Globulin 2.2 g/dL (1.6-3.3); Non-African American GFR(CKD) 12.7 (60.0-200.0); Phosphorus 3.4 mg/dL (2.4-5.1); Potassium 4.5 mmol/L (3.5-5.5); Total Bilirubin 0.6 mg/dL (0.2-1.2); Total Protein 6.4 g/dL (6.2-8.2)
== END | disposition home or self-care (01) ==
LOC: LABWHC1 09:17
PROVIDERS: ATTEND Internal Medicine Nephrology
DX: N18.4 Chronic kidney disease, stage 4 (severe) (principal); N39.0 Urinary tract infection, site not specified; D63.1 Anemia in chronic kidney disease
CPT/HCPCS: 36415; 80053; 81001; 82728; 83540; 83550; 84100; 85025

== ENCOUNTER → 2020-10-23 | Outpatient (CLI) | payer MEDICARE ==
[2020-10-23 09:55] LABS: Appearance,Urine Cloudy (Clear); Bilirubin,Urine Negative (Negative); Blood,Urine Negative (Negative); Color,Urine Yellow; Glucose,Urine (UA) Negative (Negative); Ketones,Urine Negative (Negative); Leukocyte Esterase,Urine Trace (Negative); Mucus,Urine Rare /hpf; Nitrite,Urine Negative (Negative); PH, Urine 5.5 (5.0-8.0); Protein,Urine Trace (Negative); RBC,Urine <1 /hpf (0-5); Specific Gravity,Urine 1.014 (1.001-1.035); Squamous Epithelial Cell,Urine 14 /hpf (0-4); Urobilinogen,Urine <2.0 mg/dL (<2.0); WBC,Urine 2 /hpf (0-5)
[2020-10-23 14:45] LABS: Basophils # (A) 0.05 X 10*3/uL (0.00-0.10); Basophils % (A) 0.7 %; Eosinophils # (A) 0.48 X 10*3/uL (0.04-0.35); Eosinophils % (A) 6.5 %; HCT 36.6 % (37.2-46.3); HGB 11.7 g/dL (12.0-15.0); Lymphocytes # (A) 1.47 X 10*3/uL (0.90-5.00); Lymphocytes % (A) 19.8 %; MCH 30.5 pg (27.0-32.0); MCV 95.3 fL (80.0-97.0); Mean Platelet Volume 10.9 fL (9.5-12.2); Monocytes # (A) 0.58 X 10*3/uL (0.20-1.00); Monocytes % (A) 7.8 %; Neutrophils % (A) 64.7 %; Platelet Count 268 X 10*3/uL (140-440); RBC 3.84 X 10*6/uL (4.10-5.20); RDW 15.8 % (11.5-14.5); WBC 7.42 X 10*3/uL (4.50-10.00)
[2020-10-23 18:24] LABS: Ferritin 138.4 ng/mL (10.0-291.0)
[2020-10-23 18:46] LABS: % Iron Saturation 28.33 (12.00-45.00); African American GFR (CKD) 15.8 (60.0-200.0); Albumin 4.3 g/dL (3.80-4.90); Albumin/Globulin Ratio 1.87 (1.60-3.17); Anion Gap 11.3 mmol/L (4.00-12.00); BUN/Creat Ratio 15.48 Ratio (12.00-20.00); Calcium 9.4 mg/dL (8.7-10.3); Carbon Dioxide 19.7 mmol/L (21.6-31.8); Globulin 2.3 g/dL (1.6-3.3); Magnesium 1.7 mg/dL (1.5-2.4); Non-African American GFR(CKD) 13.6 (60.0-200.0); Phosphorus 3.8 mg/dL (2.4-5.1); Potassium 4.6 mmol/L (3.5-5.5); Total Bilirubin 0.5 mg/dL (0.3-1.2); Total Protein 6.6 g/dL (6.2-8.2)
== END | disposition home or self-care (01) ==
LOC: LABWHC1 08:59
PROVIDERS: ATTEND Nurse Practitioner Family
DX: N18.4 Chronic kidney disease, stage 4 (severe) (principal); N25.81 Secondary hyperparathyroidism of renal origin; E55.9 Vitamin D deficiency, unspecified; D64.9 Anemia, unspecified; N39.0 Urinary tract infection, site not specified
CPT/HCPCS: 36415; 80053; 81001; 82306; 82728; 83540; 83550; 83735; 83970; 84100; 85025

== ENCOUNTER → 2020-12-31 | Outpatient (CLI) | payer MEDICARE ==
[2020-12-31 11:18] LABS: Appearance,Urine Clear (Clear); Bilirubin,Urine Negative (Negative); Blood,Urine Trace (Negative); Color,Urine Light Yellow; Glucose,Urine (UA) Negative (Negative); Ketones,Urine Negative (Negative); Leukocyte Esterase,Urine Negative (Negative); Mucus,Urine Rare /hpf; Nitrite,Urine Negative (Negative); Protein,Urine Trace (Negative); Specific Gravity,Urine 1.015 (1.001-1.035); Squamous Epithelial Cell,Urine 2 /hpf (0-4); Urobilinogen,Urine <2.0 mg/dL (<2.0); WBC,Urine 1 /hpf (0-5)
[2020-12-31 15:18] LABS: Basophils # (A) 0.04 X 10*3/uL (0.00-0.10); Basophils % (A) 0.5 %; Eosinophils # (A) 0.52 X 10*3/uL (0.04-0.35); Eosinophils % (A) 6.2 %; HCT 39.2 % (37.2-46.3); HGB 12.3 g/dL (12.0-15.0); Lymphocytes # (A) 1.77 X 10*3/uL (0.90-5.00); Lymphocytes % (A) 21.1 %; MCH 29.8 pg (27.0-32.0); MCHC 31.4 g/dL (32.0-37.0); MCV 94.9 fL (80.0-97.0); Mean Platelet Volume 11.1 fL (9.5-12.2); Monocytes # (A) 0.66 X 10*3/uL (0.20-1.00); Monocytes % (A) 7.9 %; Neutrophils # (A) 5.38 X 10*3/uL (1.80-7.70); Neutrophils % (A) 63.9 %; Platelet Count 273 X 10*3/uL (140-440); RBC 4.13 X 10*6/uL (4.10-5.20); RDW 15.9 % (11.5-14.5)
[2021-01-01 00:17] LABS: Phosphorus 3.6 mg/dL (2.4-5.1)
[2021-01-01 00:18] LABS: % Iron Saturation 27.73 (12.00-45.00); African American GFR (CKD) 13.2 (60.0-200.0); Albumin 4.3 g/dL (3.80-4.90); Albumin/Globulin Ratio 1.79 (1.60-3.17); Anion Gap 12.6 mmol/L (4.00-12.00); BUN/Creat Ratio 15.56 Ratio (12.00-20.00); Calcium 10.9 mg/dL (8.7-10.3); Carbon Dioxide 19.4 mmol/L (21.6-31.8); Globulin 2.4 g/dL (1.6-3.3); Magnesium 1.7 mg/dL (1.5-2.4); Non-African American GFR(CKD) 11.4 (60.0-200.0); Potassium 4.9 mmol/L (3.5-5.5); Total Bilirubin 0.5 mg/dL (0.2-1.2); Total Protein 6.7 g/dL (6.2-8.2)
[2021-01-01 00:25] LABS: Ferritin 120.8 ng/mL (10.0-291.0)
== END | disposition home or self-care (01) ==
LOC: LABWHC1 09:15
PROVIDERS: ATTEND Nurse Practitioner Family
DX: N18.4 Chronic kidney disease, stage 4 (severe) (principal); N25.81 Secondary hyperparathyroidism of renal origin; E55.9 Vitamin D deficiency, unspecified; D64.9 Anemia, unspecified; N39.0 Urinary tract infection, site not specified
CPT/HCPCS: 36415; 80053; 81001; 82306; 82728; 83540; 83550; 83735; 83970; 84100; 85025

== ENCOUNTER → 2021-02-04 | Outpatient (CLI) | payer MEDICARE ==
[2021-02-04 20:48] LABS: African American GFR (CKD) 12.4 (60.0-200.0); Anion Gap 11.5 mmol/L (4.00-12.00); BUN/Creat Ratio 15.53 Ratio (12.00-20.00); Calcium 9.2 mg/dL (8.7-10.3); Carbon Dioxide 19.5 mmol/L (21.6-31.8); Non-African American GFR(CKD) 10.7 (60.0-200.0); Potassium 4.3 mmol/L (3.5-5.5)
== END | disposition home or self-care (01) ==
LOC: LABWHC1 08:49
PROVIDERS: ATTEND Internal Medicine Nephrology
DX: N18.5 Chronic kidney disease, stage 5 (principal)
CPT/HCPCS: 36415; 80048

== ENCOUNTER → 2021-03-04 | Outpatient (CLI) | payer MEDICARE ==
[2021-03-04 12:33] LABS: Appearance,Urine Cloudy (Clear); Bilirubin,Urine Negative (Negative); Blood,Urine Trace (Negative); Color,Urine Light Yellow; Glucose,Urine (UA) Negative (Negative); Ketones,Urine Negative (Negative); Leukocyte Esterase,Urine Negative (Negative); Nitrite,Urine Negative (Negative); Protein,Urine 1+ (Negative); RBC,Urine 1 /hpf (0-5); Specific Gravity,Urine 1.018 (1.001-1.035); Squamous Epithelial Cell,Urine 6 /hpf (0-4); Urobilinogen,Urine <2.0 mg/dL (<2.0); WBC,Urine 1 /hpf (0-5)
[2021-03-04 12:48] LABS: Creatinine,Urine Random 130.2 mg/dL; Protein/Creatinine Ratio,Urine 0.261
[2021-03-04 17:48] LABS: Basophils # (A) 0.06 X 10*3/uL (0.00-0.10); Basophils % (A) 0.9 %; Eosinophils # (A) 0.41 X 10*3/uL (0.04-0.35); Eosinophils % (A) 6.1 %; HCT 37.6 % (37.2-46.3); HGB 11.9 g/dL (12.0-15.0); Lymphocytes # (A) 1.41 X 10*3/uL (0.90-5.00); Lymphocytes % (A) 21.1 %; MCH 30.1 pg (27.0-32.0); MCHC 31.6 g/dL (32.0-37.0); MCV 95.2 fL (80.0-97.0); Mean Platelet Volume 11.1 fL (9.5-12.2); Monocytes % (A) 10.5 %; Neutrophils # (A) 4.09 X 10*3/uL (1.80-7.70); Neutrophils % (A) 61.1 %; Platelet Count 254 X 10*3/uL (140-440); RBC 3.95 X 10*6/uL (4.10-5.20); RDW 16.5 % (11.5-14.5); WBC 6.69 X 10*3/uL (4.50-10.00)
[2021-03-04 23:22] LABS: % Iron Saturation 19.12 (12.00-45.00); African American GFR (CKD) 13.6 (60.0-200.0); Albumin 4.2 g/dL (3.80-4.90); Anion Gap 12.5 mmol/L (4.00-12.00); Carbon Dioxide 18.5 mmol/L (21.6-31.8); Non-African American GFR(CKD) 11.8 (60.0-200.0); Phosphorus 3.6 mg/dL (2.4-5.1); Potassium 4.4 mmol/L (3.5-5.5); Uric Acid 4.4 mg/dL (2.9-7.7)
[2021-03-04 23:30] LABS: Ferritin 134.8 ng/mL (10.0-291.0)
== END | disposition home or self-care (01) ==
LOC: LABWHC1 10:02
PROVIDERS: ATTEND Internal Medicine Nephrology
DX: N25.81 Secondary hyperparathyroidism of renal origin (principal); N18.5 Chronic kidney disease, stage 5; M10.9 Gout, unspecified; N39.0 Urinary tract infection, site not specified; D64.9 Anemia, unspecified
CPT/HCPCS: 36415; 80048; 81001; 82040; 82306; 82570; 82728; 83540; 83550; 83735; 83970; 84100; 84156; 84550; 85025

== ENCOUNTER → 2021-05-06 | Outpatient (CLI) | payer MEDICARE ==
[2021-05-06 12:17] LABS: Appearance,Urine Cloudy (Clear); Bilirubin,Urine Negative (Negative); Blood,Urine Negative (Negative); Color,Urine Yellow; Glucose,Urine (UA) Negative (Negative); Ketones,Urine Negative (Negative); Leukocyte Esterase,Urine Trace (Negative); Mucus,Urine Rare /hpf; Nitrite,Urine Negative (Negative); Protein,Urine Trace (Negative); RBC,Urine <1 /hpf (0-5); Specific Gravity,Urine 1.014 (1.001-1.035); Squamous Epithelial Cell,Urine 19 /hpf (0-4); Urobilinogen,Urine <2.0 mg/dL (<2.0); WBC,Urine 3 /hpf (0-5)
[2021-05-06 16:10] LABS: Basophils # (A) 0.06 X 10*3/uL (0.00-0.10); Basophils % (A) 0.8 %; Eosinophils # (A) 0.48 X 10*3/uL (0.04-0.35); Eosinophils % (A) 6.4 %; HCT 38.5 % (37.2-46.3); HGB 12.1 g/dL (12.0-15.0); Lymphocytes # (A) 1.48 X 10*3/uL (0.90-5.00); Lymphocytes % (A) 19.7 %; MCH 29.7 pg (27.0-32.0); MCHC 31.4 g/dL (32.0-37.0); MCV 94.4 fL (80.0-97.0); Mean Platelet Volume 10.6 fL (9.5-12.2); Monocytes # (A) 0.59 X 10*3/uL (0.20-1.00); Monocytes % (A) 7.9 %; Neutrophils # (A) 4.87 X 10*3/uL (1.80-7.70); Neutrophils % (A) 64.8 %; Platelet Count 271 X 10*3/uL (140-440); RBC 4.08 X 10*6/uL (4.10-5.20); RDW 16.3 % (11.5-14.5); WBC 7.51 X 10*3/uL (4.50-10.00)
[2021-05-06 19:09] LABS: % Iron Saturation 21.4 (12.00-45.00); African American GFR (CKD) 13.6 (60.0-200.0); Albumin 4.2 g/dL (3.8-4.9); Anion Gap 15.5 mmol/L (4.00-12.00); BUN/Creat Ratio 13.49 Ratio (12.00-20.00); Blood Urea Nitrogen 47.2 mg/dL (9.0-27.0); Calcium 9.7 mg/dL (8.7-10.3); Carbon Dioxide 18.5 mmol/L (21.6-31.8); Magnesium 1.9 mg/dL (1.5-2.4); Non-African American GFR(CKD) 11.8 (60.0-200.0); Phosphorus 3.7 mg/dL (2.4-5.1); Potassium 4.5 mmol/L (3.5-5.5); Uric Acid 4.9 mg/dL (2.9-7.7)
== END | disposition home or self-care (01) ==
LOC: LABWHC1 09:35
PROVIDERS: ATTEND Nurse Practitioner Family
DX: M10.9 Gout, unspecified (principal); N39.0 Urinary tract infection, site not specified; N25.81 Secondary hyperparathyroidism of renal origin; D64.9 Anemia, unspecified; N18.5 Chronic kidney disease, stage 5
CPT/HCPCS: 36415; 80048; 81001; 82040; 82306; 82728; 83540; 83550; 83735; 83970; 84100; 84550; 85025

== ENCOUNTER → 2021-07-02 | Outpatient (CLI) | payer MEDICARE ==
[2021-07-02 11:02] LABS: Appearance,Urine Cloudy (Clear); Bilirubin,Urine Negative (Negative); Blood,Urine Negative (Negative); Color,Urine Yellow; Glucose,Urine (UA) Negative (Negative); Ketones,Urine Negative (Negative); Leukocyte Esterase,Urine Negative (Negative); Mucus,Urine Rare /hpf; Nitrite,Urine Negative (Negative); PH, Urine 5.5 (5.0-8.0); Protein,Urine 1+ (Negative); Specific Gravity,Urine 1.018 (1.001-1.035); Squamous Epithelial Cell,Urine 11 /hpf (0-4); Urobilinogen,Urine <2.0 mg/dL (<2.0); WBC,Urine 1 /hpf (0-5)
[2021-07-02 15:10] LABS: Basophils # (A) 0.06 X 10*3/uL (0.00-0.10); Basophils % (A) 0.8 %; Eosinophils # (A) 0.72 X 10*3/uL (0.04-0.35); Eosinophils % (A) 9.6 %; HCT 37.7 % (37.2-46.3); HGB 11.6 g/dL (12.0-15.0); Lymphocytes # (A) 1.22 X 10*3/uL (0.90-5.00); Lymphocytes % (A) 16.3 %; MCH 29.7 pg (27.0-32.0); MCHC 30.8 g/dL (32.0-37.0); MCV 96.4 fL (80.0-97.0); Mean Platelet Volume 10.7 fL (9.5-12.2); Monocytes # (A) 0.57 X 10*3/uL (0.20-1.00); Monocytes % (A) 7.6 %; Neutrophils % (A) 65.3 %; Platelet Count 283 X 10*3/uL (140-440); RBC 3.91 X 10*6/uL (4.10-5.20); RDW 16.2 % (11.5-14.5)
[2021-07-02 16:39] LABS: % Iron Saturation 23.83 (12.00-45.00); African American GFR (CKD) 12.1 (60.0-200.0); Albumin 4.2 g/dL (3.8-4.9); Anion Gap 15.3 mmol/L (10.00-18.00); BUN/Creat Ratio 13.28 Ratio (12.00-20.00); Blood Urea Nitrogen 51.4 mg/dL (9.0-27.0); Calcium 9.5 mg/dL (8.7-10.3); Carbon Dioxide 19.3 mmol/L (20.0-27.5); Non-African American GFR(CKD) 10.4 (60.0-200.0); Phosphorus 3.6 mg/dL (2.4-5.1); Potassium 4.9 mmol/L (3.5-5.5); Uric Acid 4.6 mg/dL (2.9-7.7)
== END | disposition home or self-care (01) ==
LOC: LABWHC1 09:13
PROVIDERS: ATTEND Nurse Practitioner Family
DX: E55.9 Vitamin D deficiency, unspecified (principal); D64.9 Anemia, unspecified; N25.81 Secondary hyperparathyroidism of renal origin; N18.5 Chronic kidney disease, stage 5; M10.9 Gout, unspecified; N39.0 Urinary tract infection, site not specified
CPT/HCPCS: 36415; 80048; 81001; 82040; 82306; 82728; 83540; 83550; 83735; 83970; 84100; 84550; 85025

== ENCOUNTER → 2021-09-09 | Outpatient (CLI) | payer MEDICARE ==
[2021-09-09 12:13] LABS: Appearance,Urine Clear (Clear); Bilirubin,Urine Negative (Negative); Blood,Urine Negative (Negative); Color,Urine Light Yellow; Glucose,Urine (UA) Negative (Negative); Ketones,Urine Negative (Negative); Leukocyte Esterase,Urine Small (Negative); Mucus,Urine Rare /hpf; Nitrite,Urine Negative (Negative); Protein,Urine Trace (Negative); Specific Gravity,Urine 1.013 (1.001-1.035); Squamous Epithelial Cell,Urine 3 /hpf (0-4); Urobilinogen,Urine <2.0 mg/dL (<2.0); WBC,Urine 15 /hpf (0-5)
[2021-09-09 12:14] LABS: Creatinine,Urine Random 124.7 mg/dL; Protein/Creatinine Ratio,Urine 0.281
[2021-09-09 18:29] LABS: Basophils # (A) 0.06 X 10*3/uL (0.00-0.10); Basophils % (A) 0.7 %; Eosinophils # (A) 1.55 X 10*3/uL (0.04-0.35); Eosinophils % (A) 17.1 %; HCT 36.9 % (37.2-46.3); HGB 11.6 g/dL (12.0-15.0); Immature Grans, Automated 0.3 %; Lymphocytes # (A) 1.65 X 10*3/uL (0.90-5.00); Lymphocytes % (A) 18.2 %; MCH 29.4 pg (27.0-32.0); MCHC 31.4 g/dL (32.0-37.0); MCV 93.7 fL (80.0-97.0); Mean Platelet Volume 10.7 fL (9.5-12.2); Monocytes # (A) 0.69 X 10*3/uL (0.20-1.00); Monocytes % (A) 7.6 %; NRBC Per 100 WBC 0 /100 WBCS (0.0-0.0); Neutrophils # (A) 5.08 X 10*3/uL (1.80-7.70); Neutrophils % (A) 56.1 %; Platelet Count 276 X 10*3/uL (140-440); RBC 3.94 X 10*6/uL (4.10-5.20); RDW 16.2 % (11.5-14.5); WBC 9.06 X 10*3/uL (4.50-10.00)
[2021-09-09 19:34] LABS: % Iron Saturation 35.56 (12.00-45.00); African American GFR (CKD) 11.1 (60.0-200.0); Anion Gap 14.9 mmol/L (10.00-18.00); BUN/Creat Ratio 10.72 Ratio (12.00-20.00); Blood Urea Nitrogen 44.4 mg/dL (9.0-27.0); Calcium 9.7 mg/dL (8.7-10.3); Carbon Dioxide 18.1 mmol/L (20.0-27.5); Non-African American GFR(CKD) 9.6 (60.0-200.0); Phosphorus 3.7 mg/dL (2.4-5.1); Potassium 4.7 mmol/L (3.5-5.5); Uric Acid 4.6 mg/dL (2.9-7.7)
[2021-09-09 22:26] LABS: Albumin 4.2 g/dL (3.8-4.9)
== END | disposition home or self-care (01) ==
LOC: LABWHC1 09:48
PROVIDERS: ATTEND Internal Medicine Nephrology
DX: N18.5 Chronic kidney disease, stage 5 (principal); E55.9 Vitamin D deficiency, unspecified; N25.81 Secondary hyperparathyroidism of renal origin; M10.9 Gout, unspecified; N39.0 Urinary tract infection, site not specified; D64.9 Anemia, unspecified; R80.9 Proteinuria, unspecified
CPT/HCPCS: 36415; 80048; 81001; 82040; 82306; 82570; 82728; 83540; 83550; 83735; 83970; 84100; 84156; 84550; 85025

== ENCOUNTER → 2021-10-07 | Outpatient (CLI) | payer MEDICARE ==
[2021-10-07 11:14] LABS: Creatinine,Urine Random 155.8 mg/dL; Protein/Creatinine Ratio,Urine 0.308
[2021-10-07 15:17] LABS: % Iron Saturation 34.67 (12.00-45.00); African American GFR (CKD) 11.4 (60.0-200.0); Anion Gap 15.9 mmol/L (10.00-18.00); BUN/Creat Ratio 10.5 Ratio (12.00-20.00); Blood Urea Nitrogen 42.3 mg/dL (9.0-27.0); Calcium 9.9 mg/dL (8.7-10.3); Carbon Dioxide 18.2 mmol/L (20.0-27.5); Magnesium 1.9 mg/dL (1.5-2.4); Non-African American GFR(CKD) 9.9 (60.0-200.0); Phosphorus 3.6 mg/dL (2.4-5.1); Potassium 4.6 mmol/L (3.5-5.5); Uric Acid 4.7 mg/dL (2.9-7.7)
[2021-10-07 15:32] LABS: Basophils # (A) 0.07 X 10*3/uL (0.00-0.10); Basophils % (A) 0.9 %; Eosinophils # (A) 1.19 X 10*3/uL (0.04-0.35); Eosinophils % (A) 15.9 %; HCT 38.2 % (37.2-46.3); HGB 12.2 g/dL (12.0-15.0); Immature Grans, Automated 0.3 %; Lymphocytes # (A) 1.61 X 10*3/uL (0.90-5.00); Lymphocytes % (A) 21.5 %; MCH 29.6 pg (27.0-32.0); MCHC 31.9 g/dL (32.0-37.0); MCV 92.7 fL (80.0-97.0); Mean Platelet Volume 10.3 fL (9.5-12.2); Monocytes # (A) 0.51 X 10*3/uL (0.20-1.00); Monocytes % (A) 6.8 %; NRBC Per 100 WBC 0 /100 WBCS (0.0-0.0); Neutrophils % (A) 54.6 %; Platelet Count 273 X 10*3/uL (140-440); RBC 4.12 X 10*6/uL (4.10-5.20); RDW 15.9 % (11.5-14.5)
[2021-10-07 16:48] LABS: Appearance,Urine Clear (Clear); Bacteria,Urine None Seen /HPF (None Seen); Bilirubin,Urine Negative (Negative); Blood,Urine Negative (Negative); Color,Urine Yellow (Yellow); Ketones,Urine Negative (Negative); Leukocyte Esterase,Urine Trace (Negative); Nitrite,Urine Negative (Negative); Protein,Urine 30 (Negative); RBC,Urine 0-2 /HPF (0-2); Specific Gravity,Urine 1.015 (1.001-1.030); Urobilinogen,Urine 0.2 (0.2,1.0)
[2021-10-07 17:00] LABS: Albumin 4.4 g/dL (3.8-4.9)
== END | disposition home or self-care (01) ==
LOC: LABWHC1 09:23
PROVIDERS: ATTEND Nurse Practitioner Family
DX: N25.81 Secondary hyperparathyroidism of renal origin (principal); N18.5 Chronic kidney disease, stage 5; E55.9 Vitamin D deficiency, unspecified; M10.9 Gout, unspecified; N39.0 Urinary tract infection, site not specified; D64.9 Anemia, unspecified; R80.9 Proteinuria, unspecified
CPT/HCPCS: 36415; 80048; 81001; 82040; 82306; 82570; 82728; 83540; 83550; 83735; 83970; 84100; 84156; 84550; 85025

== ENCOUNTER → 2021-11-02 | Outpatient (CLI) | payer MEDICARE ==
[2021-11-02 15:29] LABS: Hepatitis B Core IgM Nonreactive (Nonreactive); Hepatitis B Surface Antigen Nonreactive (Nonreactive); Hepatitis C IgG Antibody Nonreactive (Nonreactive)
[2021-11-02 16:08] LABS: African American GFR (CKD) 10.9 (60.0-200.0); Albumin 4.2 g/dL (3.8-4.9); Albumin/Globulin Ratio 1.5 (1.60-3.17); Anion Gap 21.7 mmol/L (10.00-18.00); BUN/Creat Ratio 10.95 Ratio (12.00-20.00); Calcium 9.4 mg/dL (8.7-10.3); Carbon Dioxide 10.3 mmol/L (20.0-27.5); Globulin 2.8 g/dL (1.6-3.3); Non-African American GFR(CKD) 9.4 (60.0-200.0); Potassium 4.4 mmol/L (3.5-5.5); Total Bilirubin 0.5 mg/dL (0.30-1.20)
[2021-11-04 07:01] LABS: Hepatitis A Antibody IgM Negative
== END | disposition home or self-care (01) ==
LOC: LABWHC1 09:39
PROVIDERS: ATTEND Nurse Practitioner Family
DX: N18.5 Chronic kidney disease, stage 5 (principal)
CPT/HCPCS: 36415; 80053; 80074

== ENCOUNTER → 2023-05-20 | Outpatient (CLI) | payer MEDICARE ==
--- NOTE | 2023-05-20 15:53 | XR ---
EXAMINATION TYPE: XR abdomen 2V DATE OF EXAM: 05/20/2023 COMPARISON: NONE HISTORY: Pain TECHNIQUE: Single supine KUB image of the abdomen is obtained FINDINGS: Small bowel demonstrates no evidence for dilatation or air fluid levels. Gas and fecal material is seen in non-distended colon. No convincing evidence for pneumoperitoneum. No unusual calcifications. Peritoneal dialysis catheter is noted to be in place in the left lower qu adrant left pelvis.. The lung bases are clear. The osseous structures are intact. IMPRESSION: 1. Overall nonobstructive bowel gas pattern.
== END | disposition home or self-care (01) ==
LOC: RADXRYALE 15:33
PROVIDERS: ATTEND Family Medicine
DX: R19.7 Diarrhea, unspecified (principal); R14.0 Abdominal distension (gaseous)
CPT/HCPCS: 74019

== ENCOUNTER 2023-05-24 16:45 | Inpatient (IN) | payer MEDICARE ==
--- NOTE | 2023-05-24 17:16 | ED ---
Nausea/Vomiting/Diarrhea HPI - General Source: patient, RN notes reviewed Mode of arrival: ambulatory Limitations: no limitations <Dulce Judd - Last Filed: 05/24/23 17:14> - General Source: patient, family, RN notes reviewed Mode of arrival: ambulatory Limitations: no limitations <Maynor Mckoy - Last Filed: 05/24/23 20:03> - General Chief complaint: Nausea/Vomiting/Diarrhea Stated complaint: light headed Time Seen by Provider: 05/24/23 17:14 - History of Present Illness Initial comments: Patient is an 82-year-old female who presents the emergency department for lightheadedness. Patient has had vomiting and diarrhea for one week her primary care provider is concern for dehydration and sent her in for evaluation. She denies abdominal pain, fever. Does admit to a dry cough. (Dulce Judd) Patient is a pleasant 82-year-old female presenting to the emergency department with concern for dehydration. Patient has had some nausea vomiting and diarrhea over the past week, none today however. Patient did see her kidney doctor today and she was advised to come the emergency department to check for dehydration. Patient states she has been having some lightheadedness. Patient states nausea and vomiting have resolved. Patient is tolerating oral intake. (Maynor Mckoy) - Related Data Home Medications Medication Instructions Recorded Confirmed Chamberlain-3 Fatty Acids/Fish Oil [Fish 2,000 mg PO BID 05/11/14 09/15/22 Oil 1,000 mg Softgel] Omeprazole [PriLOSEC] 20 mg PO HS 05/11/14 09/15/22 allopurinoL [Zyloprim] 100 mg PO BID 05/22/17 09/15/22 amLODIPine [Norvasc] 5 mg PO DAILY 05/22/17 09/15/22 atenoloL [Tenormin] 50 mg PO DAILY 05/22/17 09/15/22 Ferrous Sulfate [Iron (65 MG 325 mg PO DAILY 11/03/21 09/15/22 Elemental)] Sodium Bicarbonate Tab 650 mg PO BID 11/03/21 09/15/22 hydrOXYzine HCL [Atarax] 10 mg PO HS 11/03/21 09/15/22 Aspirin EC [Ecotrin Low Dose] 81 mg PO DAILY 09/15/22 09/15/22 Cholecalciferol [Vitamin D3 (25 50 mcg PO BID 09/15/22 09/15/22 Mcg = 1000 Iu)] Rosuvastatin [Crestor] 20 mg PO HS 09/15/22 09/15/22 Previous Rx's Medication Instructions Recorded Cefdinir 300 mg PO Q12HR #24 cap 09/18/22 Magnesium Oxide [Mag-Ox] 400 mg PO DAILY #30 tab 09/18/22 Allergies Allergy/AdvReac Type Severity Reaction Status Date / Time levofloxacin [From Levaquin] Allergy Hallucinati Verified 05/24/23 17:11 ons losartan [Losartan] Allergy Unknown Verified 05/24/23 17:11 LUANA Inhibitors AdvReac Cough Verified 05/24/23 17:11 Review of Systems ROS Other: All systems not noted in ROS Statement are negative. <Dulce Judd - Last Filed: 05/24/23 17:14> ROS Other: All systems not noted in ROS Statement are negative. Constitutional: Denies: fever Eyes: Denies: eye pain ENT: Denies: ear pain Respiratory: Denies: cough Cardiovascular: Denies: chest pain Endocrine: Denies: fatigue Gastrointestinal: Reports: as per HPI Genitourinary: Denies: urgency Musculoskeletal: Denies: back pain <Maynor Mckoy - Last Filed: 05/24/23 20:03> ROS Statement: Those systems with pertinent positive or pertinent negative responses have been documented in the HPI. 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 History of Any Multi-Drug Resistant Organisms: None Reported Past Surgical History: Section, Hysterectomy, Joint Replacement, Orthopedic Surgery Additional Past Surgical History / Comment(s): 3 C-Sections, hysterectomy with vaginal repair, bilateral total knees, R shoulder acromioplasty, excision distal clavicle rotator cuff repair, bilateral cataract removal with lens implants, L breast bx-benign, varicose vein stripping bilaterally, peritoneal HD cath Past Anesthesia/Blood Transfusion Reactions: No Reported Reaction Past Psychological History: No Psychological Hx Reported Smoking Status: Never smoker Past Alcohol Use History: None Reported - Past Family History Brother(s) Family Medical History: Renal Disease Father Family Medical History: Unable to Obtain Mother Family Medical History: Coronary Artery Disease (CAD), CVA/TIA Additional Family Medical History / Comment(s): Mother at 92 yrs of age. She had TIA's. <Dulce Judd - Last Filed: 05/24/23 17:14> General Exam Limitations: no limitations <Dulce Judd - Last Filed: 05/24/23 17:14> Limitations: no limitations General appearance: alert, in no apparent distress Head exam: Present: normocephalic Eye exam: Present: normal appearance ENT exam: Present: normal oropharynx Neck exam: Present: normal inspection Respiratory exam: Present: normal lung sounds bilaterally Cardiovascular Exam: Present: regular rate, normal rhythm GI/Abdominal exam: Present: soft. Absent: tenderness Extremities exam: Present: normal inspection Neurological exam: Present: alert Psychiatric exam: Present: normal affect, normal mood Skin exam: Present: normal color <Maynor Mckoy - Last Filed: 05/24/23 20:03> - General Exam Comments Initial Comments: Visual Physical Exam Vital signs reviewed General: Well-appearing, nontoxic, no acute distress. Head: Normocephalic, atraumatic Eyes: PERRLA, EOMI ENT: Airway patent Chest: Nonlabored breathing Skin: No visual rash, normal skin tone Neuro: Alert and oriented 3 Musculoskeletal: No gross abnormalities (Dulce Judd) Course Vital Signs 05/24/23 05/24/23 17:08 18:50 Temperature 98.8 F 98.4 F Pulse Rate 86 81 Respiratory 18 20 Rate Blood Pressure 107/72 116/82 O2 Sat by Pulse 93 L 93 L Oximetry Medical Decision Making <Dulce Judd - Last Filed: 05/24/23 17:14> - Lab Data Result diagrams: 05/24/23 17:28 05/24/23 17:28 <Maynor Mckoy - Last Filed: 05/24/23 20:03> - Medical Decision Making I performed the QuickNote portion of this chart - Dulce Judd PA-C (Dulce Judd) EKG interpreted by myself shows sinus rhythm with rate of 87. Left axis. First-degree AV block VA of 218. Low QRS voltage. T-wave flattening. Was pt. sent in by a medical professional or institution (ALEX Enciso, QA TEST ANALYST, urgent care, hospital, or alf...) When possible be specific @ -Patient was sent from Dr. Dobbs office. Did you speak to anyone other than the patient for history (EMS, parent, family, police, friend...)? What history was obtained from this source @ -Family health right history including amount of vomiting Did you review nursing and triage notes (agree or disagree)? Why? @ -I reviewed and agree with nursing and triage notes Were old charts reviewed (outside hosp., previous admission, EMS record, old EKG, old radiological studies, urgent care reports/EKG's, alf records)? Report findings @ -No old charts were reviewed Differential Diagnosis (chest pain, altered mental status, abdominal pain women, abdominal pain men, vaginal bleeding, weakness, fever, dyspnea, syncope, headache, dizziness, GI bleed, back pain, seizure, CVA, palpatations, mental health, musculoskeletal)? @ -Differential Abdominal Pain Women: Appendicitis, Cholecystitis, diverticulosis, ischemic bowel, pancreatitis, hepatitis, UTI, gastroenteritis, AAA, incarcerated hernia, bowel obstruction, constipation, inflammatory bowel, hepatitis, peptic ulcer disease, splenic infarction, perforated viscus, vulvitis, ovarian torsion, PID, kidney stone, placenta abruption, this is not meant to be an all-inclusive list EKG interpreted by me (3pts min.). @ -As above X-rays interpreted by me (1pt min.). @ -None done CT interpreted by me (1pt min.). @ -None done U/S interpreted by me (1pt. min.). @ -None done What testing was considered but not performed or refused? (CT, X-rays, U/S, labs)? Why? @ -Secondary to elevation of white blood cell count, computed tomography scan will be ordered. What meds were considered but not given or refused? Why? @ -None Did you discuss the management of the patient with other professionals (professionals i.e. , PA, QA TEST ANALYST, lab, RT, psych nurse, social media specialist, care giver, teacher, resident medical officer, collections manager)? Give summary @ -Case was discussed with Dr. figueroa, who will admit covering Dr. Medina me. Was smoking cessation discussed for >3mins.? @ -No Was critical care preformed (if so, how long)? @ -No Were there social determinants of health that impacted care today? How? (Homelessness, low income, unemployed, alcoholism, drug addiction, transportation, low edu. Level, literacy, decrease access to med. care, long term, rehab)? @ -No Was there de-escalation of care discussed even if they declined (Discuss DNR or withdrawal of care, Hospice)? DNR status @ -No What co-morbidities impacted this encounter? (DM, HTN, Smoking, COPD, CAD, Cancer, CVA, ARF, Chemo, Hep., AIDS, mental health diagnosis, sleep apnea, morbid obesity)? @ -None Was patient admitted / discharged? Hospital course, mention meds given and route, prescriptions, significant lab abnormalities, going to OR and other pertinent info. @ -Patient reevaluated and states she still feels well. is in disagreement. Patient does have elevated white blood cell count and elevation of BUN. Patient will be held for IV fluids and computed tomography scan. Undiagnosed new problem with uncertain prognosis? @ -No Drug Therapy requiring intensive monitoring for toxicity (Heparin, Nitro, Insulin, Cardizem)? @ -No Were any procedures done? @ -No Diagnosis/symptom? @ -Vomiting, dehydration Acute, or Chronic, or Acute on Chronic? @ -Acute, acute Uncomplicated (without systemic symptoms) or Complicated (systemic symptoms)? @ -default Side effects of treatment? @ -No Exacerbation, Progression, or Severe Exacerbation? @ -No Poses a threat to life or bodily function? How? (Chest pain, USA, NH, pneumonia, PE, COPD, DKA, ARF, appy, cholecystitis, CVA, Diverticulitis, Homicidal, Suicidal, threat to staff... and all critical care pts) @ -No (Maynor Mckoy) - Lab Data Lab Results 05/24/23 05/24/23 05/24/23 Range/Units 17:28 17:28 17:28 WBC 28.3 H (3.8-10.6) k/uL RBC 3.89 (3.80-5.40) m/uL Hgb 11.8 (11.4-16.0) gm/dL Hct 36.3 (34.0-46.0) % MCV 93.4 (80.0-100.0) fL MCH 30.4 (25.0-35.0) pg MCHC 32.6 (31.0-37.0) g/dL RDW 15.5 (11.5-15.5) % Plt Count 409 (150-450) k/uL MPV 8.3 Neutrophils % 81 % Lymphocytes % 9 % Monocytes % 6 % Eosinophils % 3 % Basophils % 0 % Neutrophils # 22.7 H (1.3-7.7) k/uL Lymphocytes # 2.4 (1.0-4.8) k/uL Monocytes # 1.7 H (0-1.0) k/uL Eosinophils # 0.9 H (0-0.7) k/uL Basophils # 0.1 (0-0.2) k/uL Sodium 132 L (137-145) mmol/L Potassium 3.3 L (3.5-5.1) mmol/L Chloride 93 L (98-107) mmol/L Carbon Dioxide 25 (22-30) mmol/L Anion Gap 14 mmol/L BUN 71 H (7-17) mg/dL Creatinine 5.15 H (0.52-1.04) mg/dL Est GFR (CKD-EPI)AfAm 8 (>60 ml/min/1.73 sqM) Est GFR (CKD-EPI)NonAf 7 (>60 ml/min/1.73 sqM) Glucose 95 (74-99) mg/dL Plasma Lactic Acid Narciso (0.7-2.0) mmol/L Calcium 8.9 (8.4-10.2) mg/dL Magnesium 1.4 L (1.6-2.3) mg/dL Total Bilirubin 0.3 (0.2-1.3) mg/dL AST 40 H (14-36) U/L ALT 77 H (4-34) U/L Alkaline Phosphatase 184 H (38-126) U/L Total Protein 6.2 L (6.3-8.2) g/dL Albumin 2.8 L (3.5-5.0) g/dL Lipase 405 H (23-300) U/L Influenza Type A (PCR) Not Detected (Not Detectd) Influenza Type B (PCR) Not Detected (Not Detectd) RSV (PCR) Not Detected (Not Detectd) SARS-CoV-2 (PCR) Not Detected (Not Detectd) 05/24/23 Range/Units 17:28 WBC (3.8-10.6) k/uL RBC (3.80-5.40) m/uL Hgb (11.4-16.0) gm/dL Hct (34.0-46.0) % MCV (80.0-100.0) fL MCH (25.0-35.0) pg MCHC (31.0-37.0) g/dL RDW (11.5-15.5) % Plt Count (150-450) k/uL MPV Neutrophils % % Lymphocytes % % Monocytes % % Eosinophils % % Basophils % % Neutrophils # (1.3-7.7) k/uL Lymphocytes # (1.0-4.8) k/uL Monocytes # (0-1.0) k/uL Eosinophils # (0-0.7) k/uL Basophils # (0-0.2) k/uL Sodium (137-145) mmol/L Potassium (3.5-5.1) mmol/L Chloride (98-107) mmol/L Carbon Dioxide (22-30) mmol/L Anion Gap mmol/L BUN (7-17) mg/dL Creatinine (0.52-1.04) mg/dL Est GFR (CKD-EPI)AfAm (>60 ml/min/1.73 sqM) Est GFR (CKD-EPI)NonAf (>60 ml/min/1.73 sqM) Glucose (74-99) mg/dL Plasma Lactic Acid Narciso 1.1 (0.7-2.0) mmol/L Calcium (8.4-10.2) mg/dL Magnesium (1.6-2.3) mg/dL Total Bilirubin (0.2-1.3) mg/dL AST (14-36) U/L ALT (4-34) U/L Alkaline Phosphatase (38-126) U/L Total Protein (6.3-8.2) g/dL Albumin (3.5-5.0) g/dL Lipase (23-300) U/L Influenza Type A (PCR) (Not Detectd) Influenza Type B (PCR) (Not Detectd) RSV (PCR) (Not Detectd) SARS-CoV-2 (PCR) (Not Detectd) Disposition <Dulce Judd - Last Filed: 05/24/23 17:14> Is patient prescribed a controlled substance at d/c from ED?: No Time of Disposition: 20:03 <Maynor Mckoy - Last Filed: 05/24/23 20:03> Clinical Impression: Dehydration, Vomiting Disposition: ADMITTED IP TO THIS HOSP Referrals: Keith Riley DO [Primary Care Provider] - 1-2 days
[2023-05-24 17:58] LABS: Basophils # (A) 0.1 k/uL (0-0.2); Basophils % (A) 0 %; Eosinophils # (A) 0.9 k/uL (0-0.7); Eosinophils % (A) 3 %; HCT 36.3 % (34.0-46.0); HGB 11.8 gm/dL (11.4-16.0); Lymphocytes # (A) 2.4 k/uL (1.0-4.8); Lymphocytes % (A) 9 %; MCH 30.4 pg (25.0-35.0); MCHC 32.6 g/dL (31.0-37.0); MCV 93.4 fL (80.0-100.0); Mean Platelet Volume 8.3; Monocytes # (A) 1.7 k/uL (0-1.0); Monocytes % (A) 6 %; Neutrophils # (A) 22.7 k/uL (1.3-7.7); Neutrophils % (A) 81 %; Platelet Count 409 k/uL (150-450); RBC 3.89 m/uL (3.80-5.40); RDW 15.5 % (11.5-15.5); WBC 28.3 k/uL (3.8-10.6)
[2023-05-24] MEDS ORDERED: SODIUM CHLORIDE 0.9% 1,000 ML IV STA (18:19)
[2023-05-24 18:23] LABS: ALT 77 U/L (4-34); AST 40 U/L (14-36); African American GFR (CKD) 8 (>60 ml/min/1.73 sqM); Albumin 2.8 g/dL (3.5-5.0); Alkaline Phosphatase 184 U/L (38-126); Anion Gap 14 mmol/L; Blood Urea Nitrogen 71 mg/dL (7-17); Calcium 8.9 mg/dL (8.4-10.2); Carbon Dioxide 25 mmol/L (22-30); Chloride 93 mmol/L (98-107); Glucose 95 mg/dL (74-99); Lipase 405 U/L (23-300); Magnesium 1.4 mg/dL (1.6-2.3); Non-African American GFR(CKD) 7 (>60 ml/min/1.73 sqM); Potassium 3.3 mmol/L (3.5-5.1); Sodium 132 mmol/L (137-145); Total Bilirubin 0.3 mg/dL (0.2-1.3); Total Protein 6.2 g/dL (6.3-8.2)
[2023-05-24] MEDS ORDERED: ONDANSETRON 4 MG/2 ML VIAL IVP PRN (20:04)
[2023-05-24] MEDS ORDERED: NALOXONE 0.4 MG/ML 1 ML VIAL IV PRN (20:04)
[2023-05-24] MEDS: SODIUM CHLORIDE 0.9% 1,000 ML IV SCH (20:32)
[2023-05-24] MEDS: PANTOPRAZOLE 40 MG/10 ML VIAL IV SCH (20:34)
[2023-05-24] MEDS ORDERED: NON FORMULARY DRUG (Omeprazole [Prilosec] 20 MG Capsule.Dr) PO SCH (21:00)
--- NOTE | 2023-05-24 21:26 | CT ---
EXAMINATION TYPE: CT abdomen pelvis wo con CT DLP: 577.7 mGycm, Automated exposure control for dose reduction was used. DATE OF EXAM: 05/24/2023 8:35 PM COMPARISON: CT abdomen pelvis most recent from 05/26/2017 CLINICAL INDICATION:Female, 82 years old with history of Vomiting, abdominal pain, leukocytosis; Pt. on dialysis for renal disease, frequent UTIs. Vomiting with abdominal pain. GFR 7 TECHNIQUE: Axial CT of the ;CT abdomen pelvis wo con;Sagittal and coronal reformats were created on a separate workstation. Contrast used: mL of , (none if empty) Oral contrast used: without Oral Contrast (none if empty) FINDINGS: LOWER CHEST: Moderate hiatal hernia with eccentric wall thickening measuring up to 13 mm. ABDOMEN LIVER: Scattered probable simple appearing renal cysts. GALLBLADDER AND BILE DUCTS: Unremarkable. PANCREAS: Unremarkable. SPLEEN: Unremarkable. ADRENAL GLANDS: Unremarkable. KIDNEYS AND URETERS: Right kidney demonstrates multiple renal cysts some of which are hyperdense and indeterminate. The left kidney demonstrates a heterogenous fluid collection within the renal cortex m easuring 6.9 x 5.7 cm with multiple foci of gas. Evaluation limited without IV contrast. PELVIS BLADDER: Unremarkable REPRODUCTIVE: Unremarkable. ABDOMEN & PELVIS STOMACH AND BOWEL: No evidence of bowel obstruction. Scattered colonic diverticula. PERITONEUM/RETROPERITONEUM: No evidence of pneumoperitoneum or free fluid. Peritoneal dialysis tubing terminates above the urinary bladder. VASCULATURE: Mild atherosclerotic calcifications are present throughout the abdominal aorta and its b ranches. No evidence of aortic aneurysm. MUSCULOSKELETAL: No acute osseous abnormalities. Mild disc degeneration changes are present throughou t the thoracolumbar spine. LYMPH NODES: No gross evidence for lymphadenopathy. SOFT TISSUE/ABDOMINAL WALL: Right fat containing inguinal hernia. IMPRESSION: 1. 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 Urolog y consultation recommended. Clinical correlation. 2. Additional cystic disease of the bilateral kidneys some of which demonstrate high density suggest brian suggestive of proteinaceous/hemorrhagic cyst. 3. Moderate hiatal hernia with some eccentric wall thickening which could be part of the gastric lum en. Consider further evaluation of the distal esophagus throughout underlying malignancy. 4. Colonic diverticulosis. 5. Simple appearing renal cysts. Findings communicated to Dr. Kamille Yeager MD on 05/24/2023 9:[address] Xavi Euceda.
[2023-05-24] MEDS: allopurinoL 100 MG TAB PO SCH ×3 (22:21→22:29)
[2023-05-24] MEDS: CHOLECALCIFEROL 25 MCG (1000 IU) TABLET PO SCH (22:22)
[2023-05-24] MEDS: atenoloL 25 MG TAB PO SCH (22:22)
[2023-05-24] MEDS: hydrOXYzine HCL 10 MG TAB PO SCH (22:23)
[2023-05-24] MEDS: SODIUM BICARBONATE TAB 650 MG TAB PO SCH (22:23)
[2023-05-24] MEDS: ATORVASTATIN 40 MG TAB PO SCH (22:23)
[2023-05-24] MEDS ORDERED: POTASSIUM CHLORIDE ER 20 MEQ TAB.ER PO STA (22:34)
--- NOTE | 2023-05-24 22:36 | P.HPIM ---
History of Present Illness H&P Date: 05/24/23 Patient is a 82-year-old female with a PMH of ESRD on peritoneal dialysis, hypertension, and hyperlipidemia who was sent to the emergency room by her director information Dr. Dobbs for concerns of dehydration. Patient reports that over the past 2 weeks she has been feeling ill with persistent diarrhea with nausea and vomiting. Reports that her symptoms essentially resolved 2 days ago and that she has been feeling significantly better, albeit not back to her baseline as of yet. She does report minimal lightheadedness. She was seen at her director information office earlier today, who became concerned as per the patient and advised her to go to the emergency room to be evaluated for dehydration. She denied experiencing abdominal pain, chest discomfort, shortness of fever, cough. She does report waking up with cold sweats over the past few nights. 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 EKG revealed sinus rhythm with first-degree AV block with APCs at 87 bpm as reviewed by me. Laboratory evaluation was remarkable for leukocytosis of 28.3, sodium 132, potassium 3.3, BUN 71, creatinine 5.15, magnesium 1.4, AST 40, ALT 77, alk phos 184, lipase 405, with respiratory viral panel negative. ED documentation reviewed and case discussed with ED provider. Review of systems: Pertinent positives and negatives as discussed in HPI, a complete review of systems was performed and all other systems are negative. Physical examination: Vital signs reviewed General: non toxic, no distress, appears at stated age, obese Derm: no unusual rashes/lesions, warm Head: atraumatic, normocephalic, symmetric Eyes: EOMI, no lid lag, anicteric sclera, pupils equal round reactive to light ENT: Nose and ears atraumatic Neck: No cervical lymphadenopathy, trachea midline, supple Mouth: no lip lesion, mucus membranes moist Cardiovascular: S1S2 reg, no murmur, positive dorsalis pedis pulse bilateral, no edema Lungs: CTA bilateral, no rhonchi, no rales, no accessory muscle use Abdominal: soft, nontender to palpation, no guarding Ext: muscle strength 5 out of 5 in all 4 extremities grossly, no gross muscle atrophy, no contractures, Neuro: CN II-XI grossly intact, no gross focal neuro deficits Psych: Alert, oriented, appropriate affect Assessment: Sepsis secondary to renal abscess Hypokalemia Hypomagnesemia Abnormal LFTs, suspect secondary to ongoing sepsis Chronic conditions: ESRD on peritoneal dialysis, hypertension, hyperlipidemia Imaging: In the emergency room a CT abdomen and pelvis revealed a left renal cortex abscess 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 EKG revealed sinus rhythm with first-degree AV block with APCs at 87 bpm as reviewed by me. Data Review: Laboratory evaluation was remarkable for leukocytosis of 28.3, sodium 132, potassium 3.3, BUN 71, creatinine 5.15, magnesium 1.4, AST 40, ALT 77, alk phos 184, lipase 405, with respiratory viral panel negative. Plan: Start patient on IV Zosyn renal adjusted dose 2.25 g q12h Urology consulted Follow-up UA Replace potassium and magnesium levels Nephrology consulted for resumption of hemodialysis Gentle IV hydration with NS 50 ml/hr for now DVT prophylaxis: Lovenox Subq The patient is admitted with an anticipated greater than 2 midnight stay for evaluation of sepsis CODE STATUS: Full Code Discussed with: Patient, Anticipated discharge place: Home Past Medical History Past Medical History: CVA/TIA, Hyperlipidemia, Hypertension, Renal Disease Additional Past Medical History / Comment(s): TIA, ESRD on periotneal dialysis, UTIs, dizziness, gout, arthiritis, back pain with UTIs. History of Any Multi-Drug Resistant Organisms: None Reported Past Surgical History: Section, Hysterectomy, Joint Replacement, Orthopedic Surgery Additional Past Surgical History / Comment(s): 3 C-Sections, hysterectomy with vaginal repair, bilateral total knees, R shoulder acromioplasty, excision distal clavicle rotator cuff repair, bilateral cataract removal with lens implants, L breast bx-benign, varicose vein stripping bilaterally, peritoneal HD cath Past Anesthesia/Blood Transfusion Reactions: No Reported Reaction Past Psychological History: No Psychological Hx Reported Smoking Status: Never smoker Past Alcohol Use History: None Reported - Past Family History Brother(s) Family Medical History: Renal Disease Father Family Medical History: Unable to Obtain Mother Family Medical History: Coronary Artery Disease (CAD), CVA/TIA Additional Family Medical History / Comment(s): Mother at 92 yrs of age. She had TIA's. Medications and Allergies Home Medications Medication Instructions Recorded Confirmed Type [place]-3 Fatty Acids/Fish Oil [Fish 1,000 mg PO BID 05/11/14 05/24/23 History Oil 1,000 mg Softgel] Omeprazole [PriLOSEC] 20 mg PO HS 05/11/14 05/24/23 History allopurinoL [Zyloprim] 100 mg PO BID 05/22/17 05/24/23 History atenoloL [Tenormin] 25 mg PO BID 05/22/17 05/24/23 History Ferrous Sulfate [Iron (65 MG 325 mg PO DAILY 11/03/21 05/24/23 History Elemental)] Sodium Bicarbonate Tab 650 mg PO BID 11/03/21 05/24/23 History hydrOXYzine HCL [Atarax] 10 mg PO DAILY 11/03/21 05/24/23 History Cholecalciferol [Vitamin D3 (25 25 mcg PO BID 09/15/22 05/24/23 History Mcg = 1000 Iu)] Rosuvastatin [Crestor] 20 mg PO HS 09/15/22 05/24/23 History Aspirin EC [Ecotrin] 325 mg PO DAILY 05/24/23 05/24/23 History Cranberry 4200mg 2 tab PO DAILY 05/24/23 05/24/23 History Estrogens, Conjugated Cream 1 applicator VAGINAL MOWEFR 05/24/23 05/24/23 History [Premarin Vaginal Cream] Liqua Martha Protein 1 dose PO BID 05/24/23 05/24/23 History calcitrioL [Calcitriol] 0.25 mcg PO MO 05/24/23 05/24/23 History hydrOXYzine HCL [Atarax] 20 mg PO HS 05/24/23 05/24/23 History metroNIDAZOLE [Flagyl] 500 mg PO TID 05/24/23 05/24/23 History Allergies Allergy/AdvReac Type Severity Reaction Status Date / Time levofloxacin [From Levaquin] Allergy Hallucinati Verified 05/24/23 20:45 ons losartan [Losartan] Allergy Unknown Verified 05/24/23 20:45 LUANA Inhibitors AdvReac Cough Verified 05/24/23 20:45 Physical Exam Vitals: Vital Signs Temp Pulse Resp BP Pulse Ox 05/24/23 20:37 128 H 19 114/84 95 05/24/23 18:50 98.4 F 81 20 116/82 93 L 05/24/23 17:08 98.8 F 86 18 107/72 93 L Intake and Output 05/24/23 05/24/23 05/24/23 06:59 14:59 22:59 Other: Weight 83.461 kg Results CBC & Chem 7: 05/24/23 17:28 05/24/23 17:28 Labs: Abnormal Lab Results - Last 24 Hours (Table) 05/24/23 05/24/23 Range/Units 17:28 17:28 WBC 28.3 H (3.8-10.6) k/uL Neutrophils # 22.7 H (1.3-7.7) k/uL Monocytes # 1.7 H (0-1.0) k/uL Eosinophils # 0.9 H (0-0.7) k/uL Sodium 132 L (137-145) mmol/L Potassium 3.3 L (3.5-5.1) mmol/L Chloride 93 L (98-107) mmol/L BUN 71 H (7-17) mg/dL Creatinine 5.15 H (0.52-1.04) mg/dL Magnesium 1.4 L (1.6-2.3) mg/dL AST 40 H (14-36) U/L ALT 77 H (4-34) U/L Alkaline Phosphatase 184 H (38-126) U/L Total Protein 6.2 L (6.3-8.2) g/dL Albumin 2.8 L (3.5-5.0) g/dL Lipase 405 H (23-300) U/L
[2023-05-24 22:58] LABS: Appearance,Urine Slightly Cloudy (Clear); Color,Urine Yellow; Glucose,Urine (UA) Negative (Negative); Ketones,Urine Negative (Negative); Protein,Urine 1+ (Negative)
[2023-05-24 22:59] LABS: Bilirubin,Urine Negative (Negative); Blood,Urine Moderate (Negative); Leukocyte Esterase,Urine Large (Negative); Nitrite,Urine Negative (Negative); Urobilinogen,Urine <2.0 mg/dL (<2.0)
[2023-05-24 23:01] LABS: Bacteria,Urine Rare /hpf; Mucus,Urine Rare /hpf; RBC,Urine 10 /hpf (0-5); Squamous Epithelial Cell,Urine 4 /hpf (0-4); WBC,Urine >182 /hpf (0-5)
[2023-05-24] MEDS: PIPERACILLIN-TAZOBACTAM 3.375 GM in SODIUM CHLORIDE 0.9% 100 ML IVPB SCH (23:24)
[2023-05-24] MEDS: DIALYSIS (PERIT 1.5%) 2,000 ML 30 G/2,000 ML BAG INTRAPERIT SCH (23:50)
[2023-05-25] MEDS: DIALYSIS (PERIT 1.5%) 2,000 ML 30 G/2,000 ML BAG INTRAPERIT SCH ×4 (06:29→18:17)
[2023-05-25] MEDS ORDERED: ENOXAPARIN 40 MG/0.4 ML SYRINGE SQ SCH (09:00)
--- NOTE | 2023-05-25 09:12 | P.GSCN ---
History of Present Illness Consult date: 05/25/23 History of present illness: 82 yo female admitted with diarrhea and nausea. She is on chronic peritoneal dialysis. SHe has no abdomina pain but did have some fever. She had a ct scan that showed inflammation of her left kidney c/w emphesematous pyelonephritis left. Her urine looks infected. SHe is afebrile HEr vss are stable the patient denies flank pain. She denies left upper abdominal pain. She does not have a history of urine infections. She has not had any stones. Her only complaint is been the weakness. She denies fever or chills. She has not had previous urologic intervention. Review of Systems All systems: negative - Constitutional Denies fever, Denies weight loss - EENT Eyes: denies blurred vision Ears, nose, mouth and throat: Denies dysphagia - Cardiovascular Denies chest pain, Denies shortness of breath - Respiratory Denies cough, Denies 7 - Gastrointestinal Reports as per HPI - Genitourinary Genitourinary: Denies dysuria, Denies hematuria - Integumentary Denies rash, Denies unusual bruising - Neurological Denies headaches, Denies syncope - Hematologic/Lymphatic Denies easy bleeding, Denies easy bruising Past Medical History Past Medical History: CVA/TIA, Hyperlipidemia, Hypertension, Renal Disease Additional Past Medical History / Comment(s): TIA, ESRD on periotneal dialysis, UTIs, dizziness, gout, arthiritis, back pain with UTIs. History of Any Multi-Drug Resistant Organisms: None Reported Past Surgical History: Section, Hysterectomy, Joint Replacement, Orthopedic Surgery Additional Past Surgical History / Comment(s): 3 C-Sections, hysterectomy with vaginal repair, bilateral total knees, R shoulder acromioplasty, excision distal clavicle rotator cuff repair, bilateral cataract removal with lens implants, L breast bx-benign, varicose vein stripping bilaterally, peritoneal HD cath Past Anesthesia/Blood Transfusion Reactions: No Reported Reaction Past Psychological History: No Psychological Hx Reported Additional Psychological History / Comment(s): Pt resides with her spouse. She is independent. She uses no assistive devices. She drives. Smoking Status: Never smoker Past Alcohol Use History: None Reported Past Drug Use History: None Reported - Past Family History Brother(s) Family Medical History: Renal Disease Father Family Medical History: Unable to Obtain Mother Family Medical History: Coronary Artery Disease (CAD), CVA/TIA Additional Family Medical History / Comment(s): Mother at 92 yrs of age. She had TIA's. Medications and Allergies Home Medications Medication Instructions Recorded Confirmed Type [place]-3 Fatty Acids/Fish Oil [Fish 1,000 mg PO BID 05/11/14 05/24/23 History Oil 1,000 mg Softgel] Omeprazole [PriLOSEC] 20 mg PO HS 05/11/14 05/24/23 History allopurinoL [Zyloprim] 100 mg PO BID 05/22/17 05/24/23 History atenoloL [Tenormin] 25 mg PO BID 05/22/17 05/24/23 History Ferrous Sulfate [Iron (65 MG 325 mg PO DAILY 11/03/21 05/24/23 History Elemental)] Sodium Bicarbonate Tab 650 mg PO BID 11/03/21 05/24/23 History hydrOXYzine HCL [Atarax] 10 mg PO DAILY 11/03/21 05/24/23 History Cholecalciferol [Vitamin D3 (25 25 mcg PO BID 09/15/22 05/24/23 History Mcg = 1000 Iu)] Rosuvastatin [Crestor] 20 mg PO HS 09/15/22 05/24/23 History Aspirin EC [Ecotrin] 325 mg PO DAILY 05/24/23 05/24/23 History Cranberry 4200mg 2 tab PO DAILY 05/24/23 05/24/23 History Estrogens, Conjugated Cream 1 applicator VAGINAL MOWEFR 05/24/23 05/24/23 History [Premarin Vaginal Cream] Liqua Martha Protein 1 dose PO BID 05/24/23 05/24/23 History calcitrioL [Calcitriol] 0.25 mcg PO MO 05/24/23 05/24/23 History hydrOXYzine HCL [Atarax] 20 mg PO HS 05/24/23 05/24/23 History metroNIDAZOLE [Flagyl] 500 mg PO TID 05/24/23 05/24/23 History Allergies Allergy/AdvReac Type Severity Reaction Status Date / Time levofloxacin [From Levaquin] Allergy Hallucinati Verified 05/24/23 20:45 ons losartan [Losartan] Allergy Unknown Verified 05/24/23 20:45 LUANA Inhibitors AdvReac Cough Verified 05/24/23 20:45 Surgical - Exam Vital Signs Temp Pulse Resp BP Pulse Ox 98.8 F 86 18 107/72 93 L 05/24/23 17:08 05/24/23 17:08 05/24/23 17:08 05/24/23 17:08 05/24/23 17:08 - General well developed, well nourished, no distress - Eyes normal ocular movement, no icteric - ENT no hearing loss, no congestion - Neck no masses, trachea midline - Respiratory normal respiratory effort, clear to auscultation - Abdomen No abdominal or left flank pain Abdomen: soft, non tender, no guarding, no rigid, no rebound - Integumentary no rash, no abnormal pigmentation - Neurologic no disoriented, no combative - Psychiatric oriented to time, oriented to person, oriented to place, speech is normal, me amanda intact Results - Labs 05/24/23 17:28 05/24/23 17:28 Abnormal Lab Results - Last 24 Hours (Table) 05/24/23 05/24/23 05/24/23 Range/Units 17:28 17:28 17:28 WBC 28.3 H (3.8-10.6) k/uL Neutrophils # 22.7 H (1.3-7.7) k/uL Monocytes # 1.7 H (0-1.0) k/uL Eosinophils # 0.9 H (0-0.7) k/uL Sodium 132 L (137-145) mmol/L Potassium 3.3 L (3.5-5.1) mmol/L Chloride 93 L (98-107) mmol/L BUN 71 H (7-17) mg/dL Creatinine 5.15 H (0.52-1.04) mg/dL Magnesium 1.4 L (1.6-2.3) mg/dL AST 40 H (14-36) U/L ALT 77 H (4-34) U/L Alkaline Phosphatase 184 H (38-126) U/L Total Protein 6.2 L (6.3-8.2) g/dL Albumin 2.8 L (3.5-5.0) g/dL Lipase 405 H (23-300) U/L Urine Appearance Slightly Cloudy H (Clear) Urine RBC 10 H (0-5) /hpf Urine WBC >182 H (0-5) /hpf Urine WBC Clumps Many H (None) /hpf Urine Bacteria Rare H (None) /hpf Urine Mucus Rare H (None) /hpf Diabetes panel 05/24/23 Range/Units 17:28 Sodium 132 L (137-145) mmol/L Potassium 3.3 L (3.5-5.1) mmol/L Chloride 93 L (98-107) mmol/L Carbon Dioxide 25 (22-30) mmol/L BUN 71 H (7-17) mg/dL Creatinine 5.15 H (0.52-1.04) mg/dL Glucose 95 (74-99) mg/dL Calcium 8.9 (8.4-10.2) mg/dL AST 40 H (14-36) U/L ALT 77 H (4-34) U/L Alkaline Phosphatase 184 H (38-126) U/L Total Protein 6.2 L (6.3-8.2) g/dL Albumin 2.8 L (3.5-5.0) g/dL Calcium panel 05/24/23 Range/Units 17:28 Calcium 8.9 (8.4-10.2) mg/dL Albumin 2.8 L (3.5-5.0) g/dL Pituitary panel 05/24/23 Range/Units 17:28 Sodium 132 L (137-145) mmol/L Potassium 3.3 L (3.5-5.1) mmol/L Chloride 93 L (98-107) mmol/L Carbon Dioxide 25 (22-30) mmol/L BUN 71 H (7-17) mg/dL Creatinine 5.15 H (0.52-1.04) mg/dL Glucose 95 (74-99) mg/dL Calcium 8.9 (8.4-10.2) mg/dL Adrenal panel 05/24/23 Range/Units 17:28 Sodium 132 L (137-145) mmol/L Potassium 3.3 L (3.5-5.1) mmol/L Chloride 93 L (98-107) mmol/L Carbon Dioxide 25 (22-30) mmol/L BUN 71 H (7-17) mg/dL Creatinine 5.15 H (0.52-1.04) mg/dL Glucose 95 (74-99) mg/dL Calcium 8.9 (8.4-10.2) mg/dL Total Bilirubin 0.3 (0.2-1.3) mg/dL AST 40 H (14-36) U/L ALT 77 H (4-34) U/L Alkaline Phosphatase 184 H (38-126) U/L Total Protein 6.2 L (6.3-8.2) g/dL Albumin 2.8 L (3.5-5.0) g/dL - Imaging CT scan - abdomen: report reviewed, image reviewed CT scan - pelvis: report reviewed, image reviewed Assessment and Plan Assessment: Impression: Emphysematous nephritis left, chronic renal failure. Dialysis dependent. Diabetes. Recommendations: We'll try to treat this with antibiotics. The patient clinically does not look ill. Her only complaint is been the weakness of. There is no tenderness on the abdomen. She is afebrile. We will treat it with antibiotics and reassess based on her clinical improvement. For this will not require drainage or surgery. This is been discussed with the patient. Time with Patient: Greater than 30
[2023-05-25] MEDS: PANTOPRAZOLE 40 MG/10 ML VIAL IV SCH (09:33)
[2023-05-25] MEDS: FERROUS SULFATE 325 MG TAB PO SCH (09:33)
[2023-05-25] MEDS: atenoloL 25 MG TAB PO SCH ×2 (09:33→21:12)
[2023-05-25] MEDS: CHOLECALCIFEROL 25 MCG (1000 IU) TABLET PO SCH ×2 (09:33→21:12)
[2023-05-25] MEDS: ASPIRIN 325 MG TAB PO SCH (09:33)
[2023-05-25] MEDS: ENOXAPARIN 30 MG/0.3 ML SYRINGE SQ SCH (09:33)
[2023-05-25] MEDS: allopurinoL 100 MG TAB PO SCH ×2 (09:33→21:12)
[2023-05-25] MEDS: SODIUM BICARBONATE TAB 650 MG TAB PO SCH ×2 (09:33→21:12)
[2023-05-25] MEDS: hydrOXYzine HCL 10 MG TAB PO SCH ×2 (09:34→21:12)
[2023-05-25] MEDS: PIPERACILLIN-TAZOBACTAM 3.375 GM in SODIUM CHLORIDE 0.9% 100 ML IVPB SCH ×2 (09:34→21:12)
[2023-05-25 11:08] LABS: ALT 58 U/L (8-44); AST 27 U/L (13-35); Albumin 2.4 d/dL (3.8-4.9); Albumin/Globulin Ratio 0.83 Ratio (1.60-3.17); Alkaline Phosphatase 121 U/L (41-126); Calcium 8.6 mg/dL (8.7-10.3); Chloride 99 mmol/L (96-109); Globulin 2.9 d/dL (1.6-3.3); Glucose 117 mg/dL (70-110); Magnesium 1.4 mg/dL (1.5-2.4); Phosphorus 3.3 mg/dL (2.4-5.1); Sodium 136 mmol/L (135-145); Total Bilirubin 0.3 mg/dL (0.3-1.2); Total Protein 5.3 d/dL (6.2-8.2)
[2023-05-25 11:13] LABS: HCT 32.2 % (37.2-46.3); HGB 10.8 d/dL (12.0-15.0); MCH 30.7 pg (27.0-32.0); MCHC 33.5 d/dL (32.0-37.0); MCV 91.5 FL (80.0-97.0); Mean Platelet Volume 10.5 FL (9.5-12.2); NRBC Per 100 WBC 0 X 10*3/uL (0.00-0.01); Platelet Count 407 X 10*3/uL (140-440); RBC 3.52 X 10*6/uL (4.10-5.20); WBC 27.99 X 10*3/uL (4.50-10.00)
--- NOTE | 2023-05-25 11:28 | P.NPCON ---
History of Present Illness - Reason for Consult end stage renal disease - History of Present Illness Patient is an 82-year-old female with end-stage renal disease on peritoneal dialysis. She is admitted to the hospital with complaints of increased weakness and hypotension ongoing for about 1-2 weeks prior to admission. Patient has had decreased oral intake with occasional nausea and vomiting as well. She denied any fever. No abdominal pain and PD fluid has been clear. UA shows suggestion of UTI CT of the abdomen shows fluid collection and the left kidney with multiple foci of gas. Patient has been evaluated by urology, currently no plans for intervention. Overall feeling better. Patient is able to tolerate oral intake. Review of Systems As per HPI Past Medical History Past Medical History: CVA/TIA, Hyperlipidemia, Hypertension, Renal Disease Additional Past Medical History / Comment(s): TIA, ESRD on periotneal dialysis, UTIs, dizziness, gout, arthiritis, back pain with UTIs. History of Any Multi-Drug Resistant Organisms: None Reported Past Surgical History: Section, Hysterectomy, Joint Replacement, Orthopedic Surgery Additional Past Surgical History / Comment(s): 3 C-Sections, hysterectomy with vaginal repair, bilateral total knees, R shoulder acromioplasty, excision distal clavicle rotator cuff repair, bilateral cataract removal with lens implants, L breast bx-benign, varicose vein stripping bilaterally, peritoneal HD cath Past Anesthesia/Blood Transfusion Reactions: No Reported Reaction Past Psychological History: No Psychological Hx Reported Additional Psychological History / Comment(s): Pt resides with her spouse. She is independent. She uses no assistive devices. She drives. Smoking Status: Never smoker Past Alcohol Use History: None Reported Past Drug Use History: None Reported - Past Family History Brother(s) Family Medical History: Renal Disease Father Family Medical History: Unable to Obtain Mother Family Medical History: Coronary Artery Disease (CAD), CVA/TIA Additional Family Medical History / Comment(s): Mother at 92 yrs of age. She had TIA's. Medications and Allergies Home Medications Medication Instructions Recorded Confirmed Type [place]-3 Fatty Acids/Fish Oil [Fish 1,000 mg PO BID 05/11/14 05/24/23 History Oil 1,000 mg Softgel] Omeprazole [PriLOSEC] 20 mg PO HS 05/11/14 05/24/23 History allopurinoL [Zyloprim] 100 mg PO BID 05/22/17 05/24/23 History atenoloL [Tenormin] 25 mg PO BID 05/22/17 05/24/23 History Ferrous Sulfate [Iron (65 MG 325 mg PO DAILY 11/03/21 05/24/23 History Elemental)] Sodium Bicarbonate Tab 650 mg PO BID 11/03/21 05/24/23 History hydrOXYzine HCL [Atarax] 10 mg PO DAILY 11/03/21 05/24/23 History Cholecalciferol [Vitamin D3 (25 25 mcg PO BID 09/15/22 05/24/23 History Mcg = 1000 Iu)] Rosuvastatin [Crestor] 20 mg PO HS 09/15/22 05/24/23 History Aspirin EC [Ecotrin] 325 mg PO DAILY 05/24/23 05/24/23 History Cranberry 4200mg 2 tab PO DAILY 05/24/23 05/24/23 History Estrogens, Conjugated Cream 1 applicator VAGINAL MOWEFR 05/24/23 05/24/23 History [Premarin Vaginal Cream] Liqua Martha Protein 1 dose PO BID 05/24/23 05/24/23 History calcitrioL [Calcitriol] 0.25 mcg PO MO 05/24/23 05/24/23 History hydrOXYzine HCL [Atarax] 20 mg PO HS 05/24/23 05/24/23 History metroNIDAZOLE [Flagyl] 500 mg PO TID 05/24/23 05/24/23 History Allergies Allergy/AdvReac Type Severity Reaction Status Date / Time levofloxacin [From Levaquin] Allergy Hallucinati Verified 05/24/23 20:45 ons losartan [Losartan] Allergy Unknown Verified 05/24/23 20:45 LUANA Inhibitors AdvReac Cough Verified 05/24/23 20:45 Physical Exam Vitals: Vital Signs Temp Pulse Pulse Resp BP BP Pulse Ox 05/25/23 08:27 98.1 F 75 18 109/75 94 L 05/25/23 02:50 86 17 113/82 97 05/25/23 00:03 86 19 114/76 92 L 05/24/23 20:37 128 H 19 114/84 95 05/24/23 18:50 98.4 F 81 20 116/82 93 L 05/24/23 17:08 98.8 F 86 18 107/72 93 L Intake and Output 05/24/23 05/25/23 05/25/23 22:59 06:59 14:59 Other: # Voids 4 Weight 83.461 kg 83.461 kg Patient is awake, comfortable, alert oriented 3 Examination of the heart S1 and S2 Examination of the lungs bilateral breath sounds are heard Abdomen is soft nontender Examination of lower extremities shows no evidence of edema [employer] exam grossly intact Results - Lab Results Most recent lab results Calcium 8.6 mg/dL (8.7-10.3) L 05/25/23 07:04 Phosphorus 3.3 mg/dL (2.4-5.1) 05/25/23 07:04 Magnesium 1.4 mg/dL (1.5-2.4) L 05/25/23 07:04 05/25/23 07:04 05/25/23 07:04 Assessment and Plan Assessment: 1. End-stage renal disease on peritoneal dialysis 2. Fever, sepsis secondary to emphysematous left pyelonephritis. Maintained on antibiotics. Clinically stable. No plans forintervention from urology standpoint. 3. Volume depletion 4. CK D mineral bone disorder Plan: Continue antibiotics Continue with IV fluids Continue current PD exchanges Continue with oral sodium bicarb Repeat labs in a.m. Next Thank you for the consultation. We will continue to follow the patient with you during her hospitalization
[2023-05-25 12:32] LABS: Acanthocytes 2+; Basophils # (M) 0 X 10*3/uL (0.00-0.10); Eosinophils # (M) 0.28 X 10*3/uL (0.04-0.35); Lymphocytes # (M) 1.96 X 10*3/uL (0.90-5.00); Metamyelocytes % 1 % (0-0); Monocytes # (M) 1.12 X 10*3/uL (0.20-1.00); Myelocytes % 2 % (0-0); Neutrophils # (M) 23.79 X 10*3/uL (1.80-7.70); Neutrophils % (M) 85 %
--- NOTE | 2023-05-25 13:08 | P.PN ---
Subjective Progress Note Date: 05/25/23 Patient is a 82-year-old female with a PMH of ESRD on peritoneal dialysis, hypertension, and hyperlipidemia who was sent to the emergency room by her wall cleaner Dr. Dobbs for concerns of dehydration. Patient reports that over the past 2 weeks she has been feeling ill with persistent diarrhea with nausea and vomiting. Reports that her symptoms essentially resolved 2 days ago and that she has been feeling significantly better, albeit not back to her baseline as of yet. She does report minimal lightheadedness. She was seen at her wall cleaner office earlier today, who became concerned as per the patient and advised her to go to the emergency room to be evaluated for dehydration. She denied experiencing abdominal pain, chest discomfort, shortness of fever, cough. She does report waking up with cold sweats over the past few nights. 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 EKG revealed sinus rhythm with first-degree AV block with APCs at 87 bpm. Laboratory evaluation was remarkable for leukocytosis of 28.3, sodium 132, potassium 3.3, BUN 71, creatinine 5.15, magnesium 1.4, AST 40, ALT 77, alk phos 184, lipase 405, with respiratory viral panel negative. 05/25 Patient was seen and examined. No acute events overnight. Reports feeling well. No dizziness, abdominal pain, nausea or vomiting, dysuria. CBC shows WBC count 27.99, Hg 10.8. CMP shows bicarb 21, AG 16, BUN 58, Cr 5, glucose 117, Ca 8.6, ALT 58. Mg 1.4. Urology recommends conservative management with IV Abx. Nephrology consulted to resume PD. Vital signs reviewed General: non toxic, no distress, appears at stated age, obese Derm: no unusual rashes/lesions, warm Head: atraumatic, normocephalic, symmetric Eyes: EOMI, no lid lag, anicteric sclera ENT: Nose and ears atraumatic Neck: No cervical lymphadenopathy, trachea midline, supple Cardiovascular: S1S2 reg, no murmur, no edema Lungs: CTA bilateral, no rhonchi, no rales, no accessory muscle use Ext: muscle strength 5 out of 5 in all 4 extremities grossly, no gross muscle atrophy, no contractures Neuro: no gross focal neuro deficits Psych: Alert, oriented, appropriate affect Sepsis secondary to renal abscess Hypomagnesemia Abnormal LFTs, suspect secondary to ongoing sepsis Resolved: Hypokalemia Chronic conditions: ESRD on peritoneal dialysis, hypertension, hyperlipidemia Based on my assessment of this patient, this patient meets a high complexity level of care. Patient has an acute diagnosis of sepsis related to pyelonephritis with possible abscess in the setting of ESRD that poses a threat to life or bodily function. Sepsis secondary to renal abscess: Obtain BCx and UCx. Continue Zosyn 3.375g IV BID. Telemetry monitoring. ID consulted. Hypomagnesemia Abnormal LFTs, suspect secondary to ongoing sepsis I have reviewed the following review consultant notes: I have reviewed the results of the following tests: CBC, CMP, Mg. I have ordered the following tests: BCx. UCx I have discussed the care of this patient with the following independent historian: I have independently interpreted the following test below: I have discussed the management of this patient with the following physician: Objective - Vital Signs Vital signs: Vital Signs Temp 96.3 F L 05/25/23 12:00 Pulse 81 05/25/23 12:00 Resp 16 05/25/23 12:00 BP 126/83 05/25/23 12:00 Pulse Ox 93 L 05/25/23 12:00 FiO2 Intake & Output 05/24/23 05/25/23 05/25/23 18:59 06:59 18:59 Weight 83.461 kg 83.461 kg Other: # Voids 4 - Labs CBC & Chem 7: 05/25/23 07:04 05/25/23 07:04 Labs: Abnormal Lab Results - Last 24 Hours (Table) 05/24/23 05/24/23 05/24/23 Range/Units 17:28 17:28 17:28 WBC 28.3 H (3.8-10.6) k/uL RBC (4.10-5.20) X 10*6/uL Hgb (12.0-15.0) d/dL Hct (37.2-46.3) % RDW (11.5-14.5) % Neutrophils # 22.7 H (1.3-7.7) k/uL Monocytes # 1.7 H (0-1.0) k/uL Monocytes # (Manual) (0.20-1.00) X 10*3/uL Eosinophils # 0.9 H (0-0.7) k/uL Acanthocytes (Spur) Sodium 132 L (137-145) mmol/L Potassium 3.3 L (3.5-5.1) mmol/L Chloride 93 L (98-107) mmol/L Carbon Dioxide (21.6-31.8) mmol/L Anion Gap (4.00-12.00) mmol/L BUN 71 H (7-17) mg/dL Creatinine 5.15 H (0.52-1.04) mg/dL Est GFR (CKD-EPI) (>=60) BUN/Creatinine Ratio (12.00-20.00) Ratio Glucose (70-110) mg/dL Calcium (8.7-10.3) mg/dL Magnesium 1.4 L (1.6-2.3) mg/dL AST 40 H (14-36) U/L ALT 77 H (4-34) U/L Alkaline Phosphatase 184 H (38-126) U/L Total Protein 6.2 L (6.3-8.2) g/dL Albumin 2.8 L (3.5-5.0) g/dL Albumin/Globulin Ratio (1.60-3.17) Ratio Lipase 405 H (23-300) U/L Urine Appearance Slightly Cloudy H (Clear) Urine RBC 10 H (0-5) /hpf Urine WBC >182 H (0-5) /hpf Urine WBC Clumps Many H (None) /hpf Urine Bacteria Rare H (None) /hpf Urine Mucus Rare H (None) /hpf 05/25/23 05/25/23 Range/Units 07:04 07:04 WBC 27.99 H (3.8-10.6) k/uL RBC 3.52 L (4.10-5.20) X 10*6/uL Hgb 10.8 L (12.0-15.0) d/dL Hct 32.2 L (37.2-46.3) % RDW 16.0 H (11.5-14.5) % Neutrophils # (1.3-7.7) k/uL Monocytes # (0-1.0) k/uL Monocytes # (Manual) 1.12 H (0.20-1.00) X 10*3/uL Eosinophils # (0-0.7) k/uL Acanthocytes (Spur) 2+ A Sodium (137-145) mmol/L Potassium (3.5-5.1) mmol/L Chloride (98-107) mmol/L Carbon Dioxide 21.0 L (21.6-31.8) mmol/L Anion Gap 16.00 H (4.00-12.00) mmol/L BUN 58.0 H (7-17) mg/dL Creatinine 5.0 H (0.52-1.04) mg/dL Est GFR (CKD-EPI) 8 L (>=60) BUN/Creatinine Ratio 11.60 L (12.00-20.00) Ratio Glucose 117 H (70-110) mg/dL Calcium 8.6 L (8.7-10.3) mg/dL Magnesium 1.4 L (1.6-2.3) mg/dL AST (14-36) U/L ALT 58 H (4-34) U/L Alkaline Phosphatase (38-126) U/L Total Protein 5.3 L (6.3-8.2) g/dL Albumin 2.4 L (3.5-5.0) g/dL Albumin/Globulin Ratio 0.83 L (1.60-3.17) Ratio Lipase (23-300) U/L Urine Appearance (Clear) Urine RBC (0-5) /hpf Urine WBC (0-5) /hpf Urine WBC Clumps (None) /hpf Urine Bacteria (None) /hpf Urine Mucus (None) /hpf
[2023-05-25] MEDS: SODIUM CHLORIDE 0.9% 1,000 ML IV SCH (14:13)
[2023-05-25] MEDS: ATORVASTATIN 40 MG TAB PO SCH (21:12)
--- NOTE | 2023-05-25 21:57 | P.CONS ---
History of Present Illness - Reason for Consult Consult date: 05/25/23 Renal abscess Requesting physician: Bryan Low - Chief Complaint Weakness and dizziness x few days - History of Present Illness Patient is a 82-year-old female with a past medical history significant for hypertension hyperlipidemia CVA TIA patient did have a history of end-stage renal disease on peritoneal dialysis for the last 2 years patient is presenting to the ER for evaluation of lightheadedness weakness, patient did have vomiting diarrhea for about a week and the PCP was concerned the patient was possibly dehydrated in the admission for the fluids patient denies any high- grade fever did have some chills no headache or URI symptoms no chest pain shortness of breath or cough no further nausea vomiting and diarrhea has resolved patient on presentation to the hospital was afebrile and no fever has been recorded subsequently she did have a white count of 28.3 with a left shift BUN/creatinine has been elevated bilirubin was normal liver subsequently elevated urine has been positive influenza RSV and COVID test was negative stool for C. difficile negative patient did have CT of abdominal pelvis left renal abscess versus emphysematous pyelonephritis patient was started on Zosyn and admitted to the hospital infectious disease was consulted for further management of antibiotic therapy Review of Systems Positive point and negatives has been mentioned in the HPI, complete review of systems was performed and all other systems are negative Past Medical History Past Medical History: CVA/TIA, Hyperlipidemia, Hypertension, Renal Disease Additional Past Medical History / Comment(s): TIA, ESRD on periotneal dialysis, UTIs, dizziness, gout, arthiritis, back pain with UTIs. History of Any Multi-Drug Resistant Organisms: None Reported Past Surgical History: Section, Hysterectomy, Joint Replacement, Orthopedic Surgery Additional Past Surgical History / Comment(s): 3 C-Sections, hysterectomy with vaginal repair, bilateral total knees, R shoulder acromioplasty, excision distal clavicle rotator cuff repair, bilateral cataract removal with lens implants, L breast bx-benign, varicose vein stripping bilaterally, peritoneal HD cath Past Anesthesia/Blood Transfusion Reactions: No Reported Reaction Past Psychological History: No Psychological Hx Reported Additional Psychological History / Comment(s): Pt resides with her spouse. She is independent. She uses no assistive devices. She drives. Smoking Status: Never smoker Past Alcohol Use History: None Reported Past Drug Use History: None Reported - Past Family History Brother(s) Family Medical History: Renal Disease Father Family Medical History: Unable to Obtain Mother Family Medical History: Coronary Artery Disease (CAD), CVA/TIA Additional Family Medical History / Comment(s): Mother at 92 yrs of age. She had TIA's. Medications and Allergies Home Medications Medication Instructions Recorded Confirmed Type [place]-3 Fatty Acids/Fish Oil [Fish 1,000 mg PO BID 05/11/14 05/24/23 History Oil 1,000 mg Softgel] Omeprazole [PriLOSEC] 20 mg PO HS 05/11/14 05/24/23 History allopurinoL [Zyloprim] 100 mg PO BID 05/22/17 05/24/23 History atenoloL [Tenormin] 25 mg PO BID 05/22/17 05/24/23 History Ferrous Sulfate [Iron (65 MG 325 mg PO DAILY 11/03/21 05/24/23 History Elemental)] Sodium Bicarbonate Tab 650 mg PO BID 11/03/21 05/24/23 History hydrOXYzine HCL [Atarax] 10 mg PO DAILY 11/03/21 05/24/23 History Cholecalciferol [Vitamin D3 (25 25 mcg PO BID 09/15/22 05/24/23 History Mcg = 1000 Iu)] Rosuvastatin [Crestor] 20 mg PO HS 09/15/22 05/24/23 History Aspirin EC [Ecotrin] 325 mg PO DAILY 05/24/23 05/24/23 History Cranberry 4200mg 2 tab PO DAILY 05/24/23 05/24/23 History Estrogens, Conjugated Cream 1 applicator VAGINAL MOWEFR 05/24/23 05/24/23 History [Premarin Vaginal Cream] Liqua Martha Protein 1 dose PO BID 05/24/23 05/24/23 History calcitrioL [Calcitriol] 0.25 mcg PO MO 05/24/23 05/24/23 History hydrOXYzine HCL [Atarax] 20 mg PO HS 05/24/23 05/24/23 History metroNIDAZOLE [Flagyl] 500 mg PO TID 05/24/23 05/24/23 History Allergies Allergy/AdvReac Type Severity Reaction Status Date / Time levofloxacin [From Levaquin] Allergy Hallucinati Verified 05/24/23 20:45 ons losartan [Losartan] Allergy Unknown Verified 05/24/23 20:45 LUANA Inhibitors AdvReac Cough Verified 05/24/23 20:45 Physical Exam Vitals: Vital Signs Temp Pulse Pulse Resp BP BP Pulse Ox 05/25/23 08:27 98.1 F 75 18 109/75 94 L 05/25/23 02:50 86 17 113/82 97 05/25/23 00:03 86 19 114/76 92 L 05/24/23 20:37 128 H 19 114/84 95 05/24/23 18:50 98.4 F 81 20 116/82 93 L 05/24/23 17:08 98.8 F 86 18 107/72 93 L Intake and Output 05/24/23 05/25/23 05/25/23 22:59 06:59 14:59 Other: # Voids 4 Weight 83.461 kg 83.461 kg GENERAL DESCRIPTION: Elderly female lying in bed, no distress. No tachypnea or accessory muscle of respiration use. HEENT: Shows Pallor , no scleral icterus. Oral mucous membrane is dry. No pharyngeal erythema or thrush NECK: Trachea central, no thyromegaly. LUNGS: Unlabored breathing. Clear to auscultation anteriorly. HEART: S1, S2, regular rate and rhythm. No loud murmur ABDOMEN: Soft, no tenderness , guarding or rigidity, EXTREMITIES: No edema of feet. SKIN: No rash, no masses palpable. NEUROLOGICAL: The patient is awake, alert, oriented x3, mood and affect normal. Results CBC & Chem 7: 05/26/23 08:20 05/26/23 08:20 Labs: Abnormal Lab Results - Last 24 Hours (Table) 05/24/23 05/24/23 05/24/23 Range/Units 17:28 17:28 17:28 WBC 28.3 H (3.8-10.6) k/uL Neutrophils # 22.7 H (1.3-7.7) k/uL Monocytes # 1.7 H (0-1.0) k/uL Eosinophils # 0.9 H (0-0.7) k/uL Sodium 132 L (137-145) mmol/L Potassium 3.3 L (3.5-5.1) mmol/L Chloride 93 L (98-107) mmol/L BUN 71 H (7-17) mg/dL Creatinine 5.15 H (0.52-1.04) mg/dL Magnesium 1.4 L (1.6-2.3) mg/dL AST 40 H (14-36) U/L ALT 77 H (4-34) U/L Alkaline Phosphatase 184 H (38-126) U/L Total Protein 6.2 L (6.3-8.2) g/dL Albumin 2.8 L (3.5-5.0) g/dL Lipase 405 H (23-300) U/L Urine Appearance Slightly Cloudy H (Clear) Urine RBC 10 H (0-5) /hpf Urine WBC >182 H (0-5) /hpf Urine WBC Clumps Many H (None) /hpf Urine Bacteria Rare H (None) /hpf Urine Mucus Rare H (None) /hpf Assessment and Plan (1) Emphysematous pyelonephritis Current Visit: Yes Status: Acute Code(s): N12 - TUBULO-INTERSTITIAL NEPHRITIS, NOT SPCF ACUTE OR CHRONIC SNOMED Code(s): 256010195 (2) Renal abscess Current Visit: Yes Status: Acute Code(s): N15.1 - RENAL AND PERINEPHRIC ABSCESS SNOMED Code(s): 9799452 Plan: 1patient presented to hospital with weakness did have some nausea vomiting and diarrhea initially in this patient with elevated white count abnormal CT suggestive of possible emphysematous pyelonephritis versus renal abscess on the left side, patient has been eval by urology recommending no surgical intervention and will need to cover for the enteric gram-negative the likely pathogen. 2Levaquin allergy that will limit number of antibiotics safe to use 3-for now we will continue the patient on Zosyn 3.375 g every 12 hours while waiting for the culture to finalize We will follow on clinical condition and cultures to further adjust medication if needed Thank you for this consultation we will follow the patient along with you Dictation was produced using 2d2c dictation software. please excuse any grammatical, word or spelling errors. Time with Patient: Greater than 30
[2023-05-26] MEDS: DIALYSIS (PERIT 1.5%) 2,000 ML 30 G/2,000 ML BAG INTRAPERIT SCH ×4 (00:50→18:08)
[2023-05-26] MEDS ORDERED: guaiFENesin SYRUP 100MG/5ML 200 MG/10 ML CUP PO PRN (01:24)
--- NOTE | 2023-05-26 07:53 | P.PN ---
Subjective Progress Note Date: 05/26/23 The patient is in the hospital for weakness. She's been identified to have a left emphysematous pyelonephritis. She is on IV antibiotics. Feels much better this morning Objective - Vital Signs Vital signs: Vital Signs Temp 98.2 F 05/26/23 05:59 Pulse 74 05/26/23 05:59 Resp 16 05/26/23 05:59 BP 126/79 05/26/23 05:59 Pulse Ox 95 05/26/23 05:59 FiO2 Intake & Output 05/25/23 05/26/23 05/26/23 18:59 06:59 18:59 Other: Voiding Method Toilet # Voids 3 2 - Labs CBC & Chem 7: 05/25/23 07:04 05/25/23 07:04 Labs: Abnormal Lab Results - Last 24 Hours (Table) 05/25/23 05/25/23 Range/Units 07:04 07:04 WBC 27.99 H (4.50-10.00) X 10*3/uL RBC 3.52 L (4.10-5.20) X 10*6/uL Hgb 10.8 L (12.0-15.0) d/dL Hct 32.2 L (37.2-46.3) % RDW 16.0 H (11.5-14.5) % Monocytes # (Manual) 1.12 H (0.20-1.00) X 10*3/uL Acanthocytes (Spur) 2+ A Carbon Dioxide 21.0 L (21.6-31.8) mmol/L Anion Gap 16.00 H (4.00-12.00) mmol/L BUN 58.0 H (9.0-27.0) mg/dL Creatinine 5.0 H (0.6-1.5) mg/dL Est GFR (CKD-EPI) 8 L (>=60) BUN/Creatinine Ratio 11.60 L (12.00-20.00) Ratio Glucose 117 H (70-110) mg/dL Calcium 8.6 L (8.7-10.3) mg/dL Magnesium 1.4 L (1.5-2.4) mg/dL ALT 58 H (8-44) U/L Total Protein 5.3 L (6.2-8.2) d/dL Albumin 2.4 L (3.8-4.9) d/dL Albumin/Globulin Ratio 0.83 L (1.60-3.17) Ratio Assessment and Plan Assessment: Impression: Emphysematous pyelonephritis left. Recommendations. We will try to treat this conservatively hopefully with antibiotics. Clinically she is stable with normal vital signs and feels much better. We will continue to observe.
[2023-05-26] MEDS: ENOXAPARIN 30 MG/0.3 ML SYRINGE SQ SCH (08:41)
[2023-05-26] MEDS: SODIUM BICARBONATE TAB 650 MG TAB PO SCH ×2 (08:42→21:37)
[2023-05-26] MEDS: PANTOPRAZOLE 40 MG/10 ML VIAL IV SCH (08:42)
[2023-05-26] MEDS: ASPIRIN 325 MG TAB PO SCH (08:42)
[2023-05-26] MEDS: allopurinoL 100 MG TAB PO SCH ×2 (08:42→21:37)
[2023-05-26] MEDS: CHOLECALCIFEROL 25 MCG (1000 IU) TABLET PO SCH ×2 (08:42→21:37)
[2023-05-26] MEDS: atenoloL 25 MG TAB PO SCH ×2 (08:42→21:38)
[2023-05-26] MEDS: FERROUS SULFATE 325 MG TAB PO SCH (08:42)
[2023-05-26] MEDS: PIPERACILLIN-TAZOBACTAM 3.375 GM in SODIUM CHLORIDE 0.9% 100 ML IVPB SCH ×2 (08:43→21:38)
[2023-05-26] MEDS: MAGNESIUM SULFATE-D5W PMX 1 GM in DEXTROSE/WATER 1 100ML.BAG IVPB SCH ×2 (08:43→10:32)
[2023-05-26] MEDS: hydrOXYzine HCL 10 MG TAB PO SCH ×2 (09:15→21:38)
[2023-05-26 09:17] LABS: African American GFR (CKD) 10 (>60 ml/min/1.73 sqM); Anion Gap 10 mmol/L; Blood Urea Nitrogen 53 mg/dL (7-17); Carbon Dioxide 24 mmol/L (22-30); Chloride 99 mmol/L (98-107); Glucose 101 mg/dL (74-99); Non-African American GFR(CKD) 8 (>60 ml/min/1.73 sqM); Potassium 3.7 mmol/L (3.5-5.1); Sodium 133 mmol/L (137-145)
[2023-05-26 09:19] LABS: HCT 35.4 % (34.0-46.0); HGB 11.6 gm/dL (11.4-16.0); MCH 31.1 pg (25.0-35.0); MCHC 32.6 g/dL (31.0-37.0); MCV 95.3 fL (80.0-100.0); Mean Platelet Volume 8.5; Platelet Count 401 k/uL (150-450); RBC 3.72 m/uL (3.80-5.40); RDW 15.6 % (11.5-15.5); WBC 25.1 k/uL (3.8-10.6)
--- NOTE | 2023-05-26 12:05 | P.PN ---
Subjective Patient is seen for follow-up for end-stage renal disease. Maintained on IV antibiotics for UTI and emphysematous pyelonephritis of the left kidney. Urology and infectious disease on consult. No plans for intervention from the urology standpoint. Maintained on gentle IV hydration Overall feeling better. No issues with peritoneal dialysis. UF of about 100-200 ML with each exchange. Systolic blood pressure staying above 115 mmHg Objective - Vital Signs Vital signs: Vital Signs Temp 98.4 F 05/26/23 08:10 Pulse 73 05/26/23 08:10 Resp 18 05/26/23 08:10 BP 115/76 05/26/23 08:10 Pulse Ox 95 05/26/23 08:10 FiO2 Intake & Output 05/25/23 05/26/23 05/26/23 18:59 06:59 18:59 Other: Voiding Method Toilet # Voids 3 2 - Exam atient is awake, comfortable, alert oriented 3 Examination of the heart S1 and S2 Examination of the lungs bilateral breath sounds are heard Abdomen is soft nontender Examination of lower extremities shows no evidence of edema [employer] exam grossly intac - Labs CBC & Chem 7: 05/26/23 08:20 05/26/23 08:20 Labs: Abnormal Lab Results - Last 24 Hours (Table) 05/25/23 05/26/23 05/26/23 Range/Units 07:04 08:20 08:20 WBC 25.1 H (3.8-10.6) k/uL RBC 3.72 L (3.80-5.40) m/uL RDW 15.6 H (11.5-15.5) % Monocytes # (Manual) 1.12 H (0.20-1.00) X 10*3/uL Acanthocytes (Spur) 2+ A Sodium 133 L (137-145) mmol/L BUN 53 H (7-17) mg/dL Creatinine 4.61 H (0.52-1.04) mg/dL Glucose 101 H (74-99) mg/dL Assessment and Plan Assessment: 1. End-stage renal disease on peritoneal dialysis 2. Fever, sepsis secondary to emphysematous left pyelonephritis. Maintained on antibiotics. Clinically stable. No plans for intervention from urology standpoint. 3. Volume depletion 4. CK D mineral bone disorder Plan: Continue antibiotics Discussed with ID regarding possible need for CT-guided drainage Continue with IV fluids Continue current PD exchanges Continue with oral sodium bicarb Repeat labs in a.m.
[2023-05-26] MEDS: SODIUM CHLORIDE 0.9% 1,000 ML IV SCH (15:28)
--- NOTE | 2023-05-26 15:57 | P.PN ---
Subjective Progress Note Date: 05/26/23 Patient is a 82-year-old female with a PMH of ESRD on peritoneal dialysis, hypertension, and hyperlipidemia who was sent to the emergency room by her environmental engineering professor Dr. Dobbs for concerns of dehydration. Patient reports that over the past 2 weeks she has been feeling ill with persistent diarrhea with nausea and vomiting. Reports that her symptoms essentially resolved 2 days ago and that she has been feeling significantly better, albeit not back to her baseline as of yet. She does report minimal lightheadedness. She was seen at her environmental engineering professor office earlier today, who became concerned as per the patient and advised her to go to the emergency room to be evaluated for dehydration. She denied experiencing abdominal pain, chest discomfort, shortness of fever, cough. She does report waking up with cold sweats over the past few nights. 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 EKG revealed sinus rhythm with first-degree AV block with APCs at 87 bpm. Laboratory evaluation was remarkable for leukocytosis of 28.3, sodium 132, potassium 3.3, BUN 71, creatinine 5.15, magnesium 1.4, AST 40, ALT 77, alk phos 184, lipase 405, with respiratory viral panel negative. 05/25 Patient was seen and examined. No acute events overnight. Reports feeling well. No dizziness, abdominal pain, nausea or vomiting, dysuria. CBC shows WBC count 27.99, Hg 10.8. CMP shows bicarb 21, AG 16, BUN 58, Cr 5, glucose 117, Ca 8.6, ALT 58. Mg 1.4. Urology recommends conservative management with IV Abx. Nephrology consulted to resume PD. 05/26 Patient was seen and examined. No acute events overnight. No complaints. Cultures are pending. ID recommends continuing Zosyn while waiting for cultures to finalize. CBC shows WBC count 25.1. BMP shows Na 133, BUN 53, Cr 4.61, glucose 101. Vital signs reviewed General: non toxic, no distress, appears at stated age, obese Derm: no unusual rashes/lesions, warm Head: atraumatic, normocephalic, symmetric Eyes: EOMI, no lid lag, anicteric sclera ENT: Nose and ears atraumatic Neck: No cervical lymphadenopathy, trachea midline, supple Cardiovascular: S1S2 reg, no murmur, no edema Lungs: CTA bilateral, no rhonchi, no rales, no accessory muscle use Ext: muscle strength 5 out of 5 in all 4 extremities grossly, no gross muscle atrophy, no contractures Neuro: no gross focal neuro deficits Psych: Alert, oriented, appropriate affect Sepsis secondary to renal abscess Hypomagnesemia Abnormal LFTs, suspect secondary to ongoing sepsis Resolved: Hypokalemia Chronic conditions: ESRD on peritoneal dialysis, hypertension, hyperlipidemia Based on my assessment of this patient, this patient meets a high complexity level of care. Patient has an acute diagnosis of sepsis related to pyelonephritis with possible abscess in the setting of ESRD that poses a threat to life or bodily function. Sepsis secondary to renal abscess: Follow BCx and UCx. Continue Zosyn 3.375g IV BID. Telemetry monitoring. ID and Urology on board. Hypomagnesemia: Mag sulfate 2g IV ordered. Abnormal LFTs, suspect secondary to ongoing sepsis I have reviewed the following sap pp consultant notes: I have reviewed the results of the following tests: CBC, BMP I have ordered the following tests: BCx pending. UCx pending. CBC, BMP. I have discussed the care of this patient with the following independent historian: I have independently interpreted the following test below: I have discussed the management of this patient with the following physician: Objective - Vital Signs Vital signs: Vital Signs Temp 98.0 F 05/26/23 14:04 Pulse 74 05/26/23 14:04 Resp 18 05/26/23 14:04 BP 117/80 05/26/23 14:04 Pulse Ox 93 L 05/26/23 14:04 FiO2 Intake & Output 05/25/23 05/26/23 05/26/23 18:59 06:59 18:59 Other: Voiding Method Toilet Toilet # Voids 3 2 - Labs CBC & Chem 7: 05/26/23 08:20 05/26/23 08:20 Labs: Abnormal Lab Results - Last 24 Hours (Table) 05/26/23 05/26/23 Range/Units 08:20 08:20 WBC 25.1 H (3.8-10.6) k/uL RBC 3.72 L (3.80-5.40) m/uL RDW 15.6 H (11.5-15.5) % Sodium 133 L (137-145) mmol/L BUN 53 H (7-17) mg/dL Creatinine 4.61 H (0.52-1.04) mg/dL Glucose 101 H (74-99) mg/dL
[2023-05-26] MEDS: ATORVASTATIN 40 MG TAB PO SCH (21:37)
[2023-05-27] MEDS: DIALYSIS (PERIT 1.5%) 2,000 ML 30 G/2,000 ML BAG INTRAPERIT SCH ×4 (00:09→18:13)
[2023-05-27 02:12] LABS: Appearance,BF Clear (Clear)
[2023-05-27] MEDS: SODIUM CHLORIDE 0.9% 1,000 ML IV SCH (07:43)
--- NOTE | 2023-05-27 07:46 | P.PN ---
Subjective Progress Note Date: 05/27/23 The patient is in the hospital with weakness probably due to a urinary tract infection with sepsis, left emphysematous pyelonephritis. She is a chronic renal failure patient on peritoneal dialysis. She continues to clinically improve. She states that she feels very well. She wants to go home. Objective - Vital Signs Vital signs: Vital Signs Temp 97.6 F 05/27/23 07:32 Pulse 74 05/27/23 07:32 Resp 17 05/27/23 07:32 BP 118/88 05/27/23 07:32 Pulse Ox 96 05/27/23 07:32 FiO2 Intake & Output 05/26/23 05/27/23 05/27/23 18:59 06:59 18:59 Other: Voiding Method Toilet # Voids 3 2 - Labs CBC & Chem 7: 05/26/23 08:20 05/26/23 08:20 Labs: Abnormal Lab Results - Last 24 Hours (Table) 05/26/23 05/26/23 Range/Units 08:20 08:20 WBC 25.1 H (3.8-10.6) k/uL RBC 3.72 L (3.80-5.40) m/uL RDW 15.6 H (11.5-15.5) % Sodium 133 L (137-145) mmol/L BUN 53 H (7-17) mg/dL Creatinine 4.61 H (0.52-1.04) mg/dL Glucose 101 H (74-99) mg/dL Microbiology - Last 24 Hours (Table) 05/25/23 10:54 Blood Culture - Preliminary Blood Assessment and Plan Assessment: Impression: Emphysematous pyelonephritis left. Chronic renal failure Recommendations: The patient continues to clinically improve. She looks healthy. Her vital signs are stable. She is afebrile. Her [place] gone [place] 29,000 [place] [address]. Blood culture results results are pending. I do not see a urine culture on the chart. She should continue with broad-spectrum antibiotics until cultures are done. Hopefully no surgical or radiologic intervention will be required
[2023-05-27] MEDS: atenoloL 25 MG TAB PO SCH ×2 (08:52→20:37)
[2023-05-27] MEDS: FERROUS SULFATE 325 MG TAB PO SCH (08:52)
[2023-05-27] MEDS: SODIUM BICARBONATE TAB 650 MG TAB PO SCH ×2 (08:52→20:36)
[2023-05-27] MEDS: ASPIRIN 325 MG TAB PO SCH (08:52)
[2023-05-27] MEDS: allopurinoL 100 MG TAB PO SCH ×2 (08:52→20:37)
[2023-05-27] MEDS: ENOXAPARIN 30 MG/0.3 ML SYRINGE SQ SCH (08:52)
[2023-05-27] MEDS: hydrOXYzine HCL 10 MG TAB PO SCH ×2 (08:52→20:41)
[2023-05-27] MEDS: CHOLECALCIFEROL 25 MCG (1000 IU) TABLET PO SCH ×2 (08:52→20:36)
[2023-05-27] MEDS: PIPERACILLIN-TAZOBACTAM 3.375 GM in SODIUM CHLORIDE 0.9% 100 ML IVPB SCH ×2 (08:53→20:37)
[2023-05-27] MEDS: PANTOPRAZOLE 40 MG/10 ML VIAL IV SCH (08:53)
--- NOTE | 2023-05-27 10:09 | P.PN ---
Subjective Patient is seen in follow-up for end-stage renal disease. No problems with PD exchanges. No abdominal pain. Hemodynamically stable. Oral intake fair. No active complaints. Vital signs are stable. General: No acute distress. HEENT: Head exam is unremarkable. LUNGS: No audible rhonchi or wheezes. HEART: Rate and Rhythm are regular. ABDOMEN: Nontender. EXTREMITITES: No edema. Objective - Vital Signs Vital signs: Vital Signs Temp 97.6 F 05/27/23 07:32 Pulse 74 05/27/23 07:32 Resp 17 05/27/23 07:32 BP 118/88 05/27/23 07:32 Pulse Ox 96 05/27/23 07:32 FiO2 Intake & Output 05/26/23 05/27/23 05/27/23 18:59 06:59 18:59 Other: Voiding Method Toilet # Voids 3 2 - Labs CBC & Chem 7: 05/26/23 08:20 05/26/23 08:20 Labs: Microbiology - Last 24 Hours (Table) 05/26/23 01:10 Urine Culture - Final Urine,Voided 05/24/23 07:32 Stool Culture - Preliminary Stool 05/25/23 10:54 Blood Culture - Preliminary Blood Assessment and Plan Plan: Assessment: 1. End-stage renal disease maintained on peritoneal dialysis. 2. Emphysematous left pyelonephritis. On antibiotics. Infectious disease and urology following. Dialysate white cell count 17. 3. Chronic kidney disease mineral bone disease maintained on calcitriol. 4. Metabolic acidosis secondary to chronic kidney disease maintained on oral bicarbonate. 5. Hypomagnesemia from poor intake. Replaced. Plan: Maintain current PD exchanges. Maintain gentle IV hydration. Encouraged oral intake. Repeat labs in the morning.
--- NOTE | 2023-05-27 12:26 | P.PN ---
Subjective Progress Note Date: 05/26/23 Principal diagnosis: Pyelonephritis/abscess Patient is a 82-year-old female with a past medical history pertinent for hypertension hyperlipidemia CVA TIA patient did have a history of end-stage renal disease on peritoneal dialysis presented to the ER for evaluation of l ightheadedness weakness CT of abdominal pelvis suspicious for left renal abscess versus emphysematous pyelonephritis On today's evaluation that is 05/26/2023, the patient continues to be afebrile, the patient is breathing comfortably on room air, the patient denies any chest pain or cough, patient denies abdominal pain and no nausea/vomiting or diarrhea Patient white count is slightly down to 25.1, creatinine is 4.61, cultures pending Objective - Vital Signs Vital signs: Vital Signs Temp 98.4 F 05/26/23 08:10 Pulse 73 05/26/23 08:10 Resp 18 05/26/23 08:10 BP 115/76 05/26/23 08:10 Pulse Ox 95 05/26/23 08:10 FiO2 Intake & Output 05/25/23 05/26/23 05/26/23 18:59 06:59 18:59 Other: Voiding Method Toilet # Voids 3 2 - Exam GENERAL DESCRIPTION: An elderly female lying in bed in no distress RESPIRATORY SYSTEM: Unlabored breathing , clear to auscultation anteriorly HEART: S1 S2 regular rate and rhythm , ABDOMEN: Soft , no tenderness EXTREMITIES: No edema feet - Labs CBC & Chem 7: 05/26/23 08:20 05/26/23 08:20 Labs: Abnormal Lab Results - Last 24 Hours (Table) 05/25/23 05/26/23 05/26/23 Range/Units 07:04 08:20 08:20 WBC 25.1 H (3.8-10.6) k/uL RBC 3.72 L (3.80-5.40) m/uL RDW 15.6 H (11.5-15.5) % Monocytes # (Manual) 1.12 H (0.20-1.00) X 10*3/uL Acanthocytes (Spur) 2+ A Sodium 133 L (137-145) mmol/L BUN 53 H (7-17) mg/dL Creatinine 4.61 H (0.52-1.04) mg/dL Glucose 101 H (74-99) mg/dL Assessment and Plan (1) Emphysematous pyelonephritis Current Visit: Yes Status: Acute Code(s): N12 - TUBULO-INTERSTITIAL NEPHRITIS, NOT SPCF ACUTE OR CHRONIC SNOMED Code(s): 570348848 (2) Renal abscess Current Visit: Yes Status: Acute Code(s): N15.1 - RENAL AND PERINEPHRIC ABSCESS SNOMED Code(s): 9099288 Plan: 1patient presented to hospital with weakness did have some nausea vomiting and diarrhea initially in this patient with elevated white count abnormal CT suggestive of possible emphysematous pyelonephritis versus renal abscess on the left side, patient has been eval by urology recommending no surgical intervention and will need to cover for the enteric gram-negative the likely pathogen. 2patient to continue with Zosyn 3.375 g every 12 hours while waiting for the culture to finalize Dictation was produced using [email or web address] dictation software. please excuse any grammatical, word or spelling errors. Time with Patient: Less than 30
--- NOTE | 2023-05-27 14:23 | P.PN ---
Subjective Progress Note Date: 05/27/23 Patient is a 82-year-old female with a PMH of ESRD on peritoneal dialysis, hypertension, and hyperlipidemia who was sent to the emergency room by her dispenser operator Dr. Dobbs for concerns of dehydration. Patient reports that over the past 2 weeks she has been feeling ill with persistent diarrhea with nausea and vomiting. Reports that her symptoms essentially resolved 2 days ago and that she has been feeling significantly better, albeit not back to her baseline as of yet. She does report minimal lightheadedness. She was seen at her dispenser operator office earlier today, who became concerned as per the patient and advised her to go to the emergency room to be evaluated for dehydration. She denied experiencing abdominal pain, chest discomfort, shortness of fever, cough. She does report waking up with cold sweats over the past few nights. 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 EKG revealed sinus rhythm with first-degree AV block with APCs at 87 bpm. Laboratory evaluation was remarkable for leukocytosis of 28.3, sodium 132, potassium 3.3, BUN 71, creatinine 5.15, magnesium 1.4, AST 40, ALT 77, alk phos 184, lipase 405, with respiratory viral panel negative. 05/25 Patient was seen and examined. No acute events overnight. Reports feeling well. No dizziness, abdominal pain, nausea or vomiting, dysuria. CBC shows WBC count 27.99, Hg 10.8. CMP shows bicarb 21, AG 16, BUN 58, Cr 5, glucose 117, Ca 8.6, ALT 58. Mg 1.4. Urology recommends conservative management with IV Abx. Nephrology consulted to resume PD. 05/26 Patient was seen and examined. No acute events overnight. No complaints. Cultures are pending. ID recommends continuing Zosyn while waiting for cultures to finalize. CBC shows WBC count 25.1. BMP shows Na 133, BUN 53, Cr 4.61, glucose 101. 05/27 Patient was seen and examined. No acute events overnight. No complaints. Culture negative so far. No new labwork done today. Patient would like to go home. Vital signs reviewed General: non toxic, no distress, appears at stated age, obese Derm: no unusual rashes/lesions, warm Head: atraumatic, normocephalic, symmetric Eyes: EOMI, no lid lag, anicteric sclera ENT: Nose and ears atraumatic Neck: No cervical lymphadenopathy, trachea midline, supple Cardiovascular: S1S2 reg, no murmur, no edema Lungs: CTA bilateral, no rhonchi, no rales, no accessory muscle use Ext: muscle strength 5 out of 5 in all 4 extremities grossly, no gross muscle atrophy, no contractures Neuro: no gross focal neuro deficits Psych: Alert, oriented, appropriate affect Sepsis secondary to renal abscess Hypomagnesemia Abnormal LFTs, suspect secondary to ongoing sepsis Resolved: Hypokalemia Chronic conditions: ESRD on peritoneal dialysis, hypertension, hyperlipidemia Based on my assessment of this patient, this patient meets a moderate complexity level of care. Patient has an acute diagnosis of sepsis related to pyelonephritis with possible abscess in the setting of ESRD that poses a threat to life or bodily function. Sepsis secondary to renal abscess: Follow BCx and UCx. Continue Zosyn 3.375g IV BID. Telemetry monitoring. ID and Urology on board. Hypomagnesemia: Mag sulfate 2g IV ordered. Abnormal LFTs, suspect secondary to ongoing sepsis I have reviewed the following technology sales consultant notes: I have reviewed the results of the following tests: BCx UCx. I have ordered the following tests: BCx pending. UCx pending. CBC, BMP, Mg. I have discussed the care of this patient with the following independent historian: I have independently interpreted the following test below: I have discussed the management of this patient with the following physician: Objective - Vital Signs Vital signs: Vital Signs Temp 97.5 F L 05/27/23 12:00 Pulse 71 05/27/23 12:00 Resp 18 05/27/23 12:00 BP 130/83 05/27/23 12:00 Pulse Ox 96 05/27/23 12:00 FiO2 Intake & Output 05/26/23 05/27/23 05/27/23 18:59 06:59 18:59 Other: Voiding Method Toilet # Voids 3 2 - Labs CBC & Chem 7: 05/26/23 08:20 05/26/23 08:20 Labs: Microbiology - Last 24 Hours (Table) 05/26/23 01:10 Urine Culture - Final Urine,Voided 05/24/23 07:32 Stool Culture - Preliminary Stool 05/25/23 10:54 Blood Culture - Preliminary Blood
[2023-05-27] MEDS: ATORVASTATIN 40 MG TAB PO SCH (20:37)
[2023-05-28] MEDS: DIALYSIS (PERIT 1.5%) 2,000 ML 30 G/2,000 ML BAG INTRAPERIT SCH ×4 (00:23→18:09)
[2023-05-28] MEDS: SODIUM CHLORIDE 0.9% 1,000 ML IV SCH ×2 (03:41→23:10)
[2023-05-28] MEDS: PIPERACILLIN-TAZOBACTAM 3.375 GM in SODIUM CHLORIDE 0.9% 100 ML IVPB SCH ×2 (08:15→21:35)
[2023-05-28] MEDS: atenoloL 25 MG TAB PO SCH ×2 (08:16→21:34)
[2023-05-28] MEDS: FERROUS SULFATE 325 MG TAB PO SCH (08:16)
[2023-05-28] MEDS: CHOLECALCIFEROL 25 MCG (1000 IU) TABLET PO SCH ×2 (08:16→21:34)
[2023-05-28] MEDS: ENOXAPARIN 30 MG/0.3 ML SYRINGE SQ SCH (08:16)
[2023-05-28] MEDS: SODIUM BICARBONATE TAB 650 MG TAB PO SCH ×2 (08:16→21:34)
[2023-05-28] MEDS: allopurinoL 100 MG TAB PO SCH ×2 (08:16→21:34)
[2023-05-28] MEDS: PANTOPRAZOLE 40 MG/10 ML VIAL IV SCH (08:17)
[2023-05-28] MEDS: hydrOXYzine HCL 10 MG TAB PO SCH ×2 (08:17→21:35)
[2023-05-28] MEDS: ASPIRIN 325 MG TAB PO SCH (08:18)
[2023-05-28 09:56] LABS: BUN/Creat Ratio 7.32 Ratio (12.00-20.00); Blood Urea Nitrogen 36.6 mg/dL (9.0-27.0); Calcium 8.6 mg/dL (8.7-10.3); Carbon Dioxide 24.5 mmol/L (21.6-31.8); Chloride 101 mmol/L (96-109); Glucose 76 mg/dL (70-110); Magnesium 1.7 mg/dL (1.5-2.4); Potassium 3.2 mmol/L (3.5-5.5); Sodium 138 mmol/L (135-145)
--- NOTE | 2023-05-28 10:00 | P.PN ---
Subjective Progress Note Date: 05/28/23 Principal diagnosis: Left emphysematous pyelonephritis The patient feels well and has no complaints at this time. She states that at the time of admission, her primary symptoms were weakness, malaise, nausea, and diarrhea, all of which have resolved. She denies flank pain. Objective - Vital Signs Vital signs: Vital Signs Temp 97.9 F 05/28/23 06:00 Pulse 70 05/28/23 06:00 Resp 18 05/28/23 06:00 BP 125/75 05/28/23 06:00 Pulse Ox 94 L 05/28/23 06:00 FiO2 Intake & Output 05/27/23 05/28/23 05/28/23 18:59 06:59 18:59 Other: # Voids 5 2 - Constitutional General appearance: Present: average body habitus, no acute distress - Gastrointestinal Gastrointestinal Comment(s): Soft, non-tender, non-distended, no mass. - Psychiatric Psychiatric: Present: A&O x's 3 - Labs CBC & Chem 7: 05/26/23 08:20 05/28/23 04:28 Labs: Microbiology - Last 24 Hours (Table) 05/24/23 07:32 Stool Culture - Final Stool 05/25/23 10:54 Blood Culture - Preliminary Blood 05/26/23 01:10 Urine Culture - Final Urine,Voided Assessment and Plan Assessment: Urine and blood cultures are both negative. (1) Emphysematous pyelonephritis Current Visit: Yes Status: Acute Code(s): N12 - TUBULO-INTERSTITIAL NEPHRITIS, NOT SPCF ACUTE OR CHRONIC SNOMED Code(s): 351344788 Plan: -Continue Zosyn. The patient has responded well to Zosyn, but given the negative cultures the choice of outpatient antibiotic therapy will be difficult. - Repeat imaging in several days.
[2023-05-28 10:15] LABS: Basophils % (A) 0.5 %; Eosinophils # (A) 0.36 X 10*3/uL (0.04-0.35); Eosinophils % (A) 1.8 %; HCT 27.6 % (37.2-46.3); HGB 9.1 d/dL (12.0-15.0); Lymphocytes # (A) 2.75 X 10*3/uL (0.90-5.00); MCH 30.1 pg (27.0-32.0); MCV 91.4 FL (80.0-97.0); Mean Platelet Volume 10.6 FL (9.5-12.2); Monocytes # (A) 1.51 X 10*3/uL (0.20-1.00); Monocytes % (A) 7.7 %; NRBC Per 100 WBC 0 X 10*3/uL (0.00-0.01); Neutrophils # (A) 14.34 X 10*3/uL (1.80-7.70); Neutrophils % (A) 72.8 %; Platelet Count 353 X 10*3/uL (140-440); RBC 3.02 X 10*6/uL (4.10-5.20)
--- NOTE | 2023-05-28 13:40 | P.PN ---
Subjective Progress Note Date: 05/27/23 Principal diagnosis: Pyelonephritis/abscess Patient is a 82-year-old female with a past medical history pertinent for hypertension hyperlipidemia CVA TIA patient did have a history of end-stage renal disease on peritoneal dialysis presented to the ER for evaluation of l ightheadedness weakness CT of abdominal pelvis suspicious for left renal abscess versus emphysematous pyelonephritis On today's evaluation that is 05/27/2023, the patient denies any fever or any chills, the patient is breathing comfortably on room air and no need for supplemental oxygen, the patient denies any chest pain or cough, patient denies any nausea/vomiting or diarrhea and no abdominal pain Cultures have been negative so far no CBC was done today Objective - Vital Signs Vital signs: Vital Signs Temp 97.6 F 05/27/23 07:32 Pulse 74 05/27/23 07:32 Resp 17 05/27/23 07:32 BP 118/88 05/27/23 07:32 Pulse Ox 96 05/27/23 07:32 FiO2 Intake & Output 05/26/23 05/27/23 05/27/23 18:59 06:59 18:59 Other: Voiding Method Toilet # Voids 3 2 - Exam GENERAL DESCRIPTION: An elderly female lying in bed in no distress RESPIRATORY SYSTEM: Unlabored breathing , clear to auscultation anteriorly HEART: S1 S2 regular rate and rhythm , ABDOMEN: Soft , no tenderness EXTREMITIES: No edema feet - Labs CBC & Chem 7: 05/28/23 04:28 05/28/23 04:28 Labs: Microbiology - Last 24 Hours (Table) 05/26/23 01:10 Urine Culture - Final Urine,Voided 05/24/23 07:32 Stool Culture - Preliminary Stool 05/25/23 10:54 Blood Culture - Preliminary Blood Assessment and Plan (1) Emphysematous pyelonephritis Current Visit: Yes Status: Acute Code(s): N12 - TUBULO-INTERSTITIAL NEPHRITIS, NOT SPCF ACUTE OR CHRONIC SNOMED Code(s): 978522224 (2) Renal abscess Current Visit: Yes Status: Acute Code(s): N15.1 - RENAL AND PERINEPHRIC ABSCESS SNOMED Code(s): 4137558 Plan: 1patient presented to hospital with weakness did have some nausea vomiting and diarrhea initially in this patient with elevated white count abnormal CT suggestive of possible emphysematous pyelonephritis versus renal abscess on the left side, patient has been eval by urology recommending no surgical interventi on and will need to cover for the enteric gram-negative the likely pathogen. 2patient to continue with Zosyn 3.375 g every 12 hours while waiting for the culture to finalize, CT was reviewed with radiologist wanted to do a repeat CT abdomen with IV contrast for better definition of left renal pathology we will discuss with nephrology and ordered a CT if cleared by them Dictation was produced using [employer] dictation software. please excuse any grammatical, word or spelling errors. Time with Patient: Less than 30
--- NOTE | 2023-05-28 13:41 | P.PN ---
Subjective Progress Note Date: 05/28/23 Principal diagnosis: Pyelonephritis/abscess Patient is a 82-year-old female with a past medical history pertinent for hypertension hyperlipidemia CVA TIA patient did have a history of end-stage renal disease on peritoneal dialysis presented to the ER for evaluation of l ightheadedness weakness CT of abdominal pelvis suspicious for left renal abscess versus emphysematous pyelonephritis On today's evaluation that is 05/28/2023, the patient remains to be afebrile, the patient is breathing comfortably on room air and denies any shortness of breath, the patient denies any chest pain or cough, patient denies Abdominal pain and no nausea/vomiting or diarrhea Cultures have been negative , the patient white count of 19.70, creatinine is 5.0 Objective - Vital Signs Vital signs: Vital Signs Temp 98.1 F 05/28/23 07:50 Pulse 69 05/28/23 07:50 Resp 14 05/28/23 07:50 BP 123/81 05/28/23 07:50 Pulse Ox 91 L 05/28/23 07:50 FiO2 Intake & Output 05/27/23 05/28/23 05/28/23 18:59 06:59 18:59 Other: # Voids 5 2 - Exam GENERAL DESCRIPTION: An elderly female lying in bed in no distress RESPIRATORY SYSTEM: Unlabored breathing , clear to auscultation anteriorly HEART: S1 S2 regular rate and rhythm , ABDOMEN: Soft , no tenderness EXTREMITIES: No edema feet - Labs CBC & Chem 7: 05/28/23 04:28 05/28/23 04:28 Labs: Abnormal Lab Results - Last 24 Hours (Table) 05/28/23 05/28/23 Range/Units 04:28 04:28 WBC 19.70 H (4.50-10.00) X 10*3/uL RBC 3.02 L (4.10-5.20) X 10*6/uL Hgb 9.1 L (12.0-15.0) d/dL Hct 27.6 L (37.2-46.3) % RDW 16.0 H (11.5-14.5) % Neutrophils # 14.34 H (1.80-7.70) X 10*3/uL Monocytes # 1.51 H (0.20-1.00) X 10*3/uL Eosinophils # 0.36 H (0.04-0.35) X 10*3/uL Potassium 3.2 L (3.5-5.5) mmol/L Anion Gap 12.50 H (4.00-12.00) mmol/L BUN 36.6 H (9.0-27.0) mg/dL Creatinine 5.0 H (0.6-1.5) mg/dL Est GFR (CKD-EPI) 8 L (>=60) BUN/Creatinine Ratio 7.32 L (12.00-20.00) Ratio Calcium 8.6 L (8.7-10.3) mg/dL C-Reactive Protein 5.70 H (0.00-0.80) mg/dL Microbiology - Last 24 Hours (Table) 05/26/23 12:41 Gram Stain - Preliminary Peritoneal Fluid Body Fluid Culture - Preliminary 05/24/23 07:32 Stool Culture - Final Stool 05/25/23 10:54 Blood Culture - Preliminary Blood Assessment and Plan (1) Emphysematous pyelonephritis Current Visit: Yes Status: Acute Code(s): N12 - TUBULO-INTERSTITIAL NEPHRITIS, NOT SPCF ACUTE OR CHRONIC SNOMED Code(s): 210319467 (2) Renal abscess Current Visit: Yes Status: Acute Code(s): N15.1 - RENAL AND PERINEPHRIC ABSCESS SNOMED Code(s): 2259917 Plan: 1patient presented to hospital with weakness did have some nausea vomiting and diarrhea initially in this patient with elevated white count abnormal CT suggestive of possible emphysematous pyelonephritis versus renal abscess on the left side, patient has been eval by urology recommending no surgical intervention and will need to cover for the enteric gram-negative the likely pathogen. 2patient CT was reviewed with radiologist wanted to do a repeat CT abdomen with IV contrast for better definition of left renal pathology we will discuss with nephrology and ordered a CT if cleared by them 3-continue with the Zosyn and monitor clinical course closely Dictation was produced using [employer] dictation software. please excuse any grammatical, word or spelling errors. Time with Patient: Less than 30
[2023-05-28] MEDS ORDERED: POTASSIUM CHLORIDE ER 20 MEQ TAB.ER PO STA (14:51)
--- NOTE | 2023-05-28 14:54 | P.PN ---
Subjective Progress Note Date: 05/28/23 Patient is a 82-year-old female with a PMH of ESRD on peritoneal dialysis, hypertension, and hyperlipidemia who was sent to the emergency room by her unloader Dr. Dobbs for concerns of dehydration. Patient reports that over the past 2 weeks she has been feeling ill with persistent diarrhea with nausea and vomiting. Reports that her symptoms essentially resolved 2 days ago and that she has been feeling significantly better, albeit not back to her baseline as of yet. She does report minimal lightheadedness. She was seen at her unloader office earlier today, who became concerned as per the patient and advised her to go to the emergency room to be evaluated for dehydration. She denied experiencing abdominal pain, chest discomfort, shortness of fever, cough. She does report waking up with cold sweats over the past few nights. 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 EKG revealed sinus rhythm with first-degree AV block with APCs at 87 bpm. Laboratory evaluation was remarkable for leukocytosis of 28.3, sodium 132, potassium 3.3, BUN 71, creatinine 5.15, magnesium 1.4, AST 40, ALT 77, alk phos 184, lipase 405, with respiratory viral panel negative. 05/25 Patient was seen and examined. No acute events overnight. Reports feeling well. No dizziness, abdominal pain, nausea or vomiting, dysuria. CBC shows WBC count 27.99, Hg 10.8. CMP shows bicarb 21, AG 16, BUN 58, Cr 5, glucose 117, Ca 8.6, ALT 58. Mg 1.4. Urology recommends conservative management with IV Abx. Nephrology consulted to resume PD. 05/26 Patient was seen and examined. No acute events overnight. No complaints. Cultures are pending. ID recommends continuing Zosyn while waiting for cultures to finalize. CBC shows WBC count 25.1. BMP shows Na 133, BUN 53, Cr 4.61, glucose 101. 05/27 Patient was seen and examined. No acute events overnight. No complaints. Culture negative so far. No new labwork done today. Patient would like to go home. 05/28 Patient was seen and examined. Feeling well. CBC shows WBC 19.7 Hg 9.1. BMP shows K 3.2, anion gap 12.5, BUN 36.6, Cr 5, Ca 8.6. Mag 1.7. ID recommends repeat CT with contrast if cleared by Nephrology. Vital signs reviewed General: non toxic, no distress, appears at stated age, obese Derm: no unusual rashes/lesions, warm Head: atraumatic, normocephalic, symmetric Eyes: EOMI, no lid lag, anicteric sclera ENT: Nose and ears atraumatic Neck: No cervical lymphadenopathy, trachea midline, supple Cardiovascular: S1S2 reg, no murmur, no edema Lungs: CTA bilateral, no rhonchi, no rales, no accessory muscle use Ext: muscle strength 5 out of 5 in all 4 extremities grossly, no gross muscle atrophy, no contractures Neuro: no gross focal neuro deficits Psych: Alert, oriented, appropriate affect Sepsis secondary to renal abscess Hypokalemia Abnormal LFTs, suspect secondary to ongoing sepsis Resolved: Hypokalemia Chronic conditions: ESRD on peritoneal dialysis, hypertension, hyperlipidemia Based on my assessment of this patient, this patient meets a moderate complexity level of care. Patient has an acute diagnosis of sepsis related to pyelonephritis with possible abscess in the setting of ESRD that poses a threat to life or bodily function. Sepsis secondary to renal abscess: Follow BCx and UCx. Continue Zosyn 3.375g IV BID. Telemetry monitoring. ID and Urology on board. Hypokalemia: KCl 40 meq PO x 1. Abnormal LFTs, suspect secondary to ongoing sepsis I have reviewed the following x ray consultant notes: I have reviewed the results of the following tests: CBC, BMP, Mg. I have ordered the following tests: CBC, BMP, Mg. I have discussed the care of this patient with the following independent historian: I have independently interpreted the following test below: I have discussed the management of this patient with the following physician: Objective - Vital Signs Vital signs: Vital Signs Temp 98.1 F 05/28/23 07:50 Pulse 69 05/28/23 07:50 Resp 14 05/28/23 07:50 BP 123/81 05/28/23 07:50 Pulse Ox 91 L 05/28/23 07:50 FiO2 Intake & Output 05/27/23 05/28/23 05/28/23 18:59 06:59 18:59 Other: # Voids 5 2 - Labs CBC & Chem 7: 05/28/23 04:28 05/28/23 04:28 Labs: Abnormal Lab Results - Last 24 Hours (Table) 05/28/23 05/28/23 Range/Units 04:28 04:28 WBC 19.70 H (4.50-10.00) X 10*3/uL RBC 3.02 L (4.10-5.20) X 10*6/uL Hgb 9.1 L (12.0-15.0) d/dL Hct 27.6 L (37.2-46.3) % RDW 16.0 H (11.5-14.5) % Neutrophils # 14.34 H (1.80-7.70) X 10*3/uL Monocytes # 1.51 H (0.20-1.00) X 10*3/uL Eosinophils # 0.36 H (0.04-0.35) X 10*3/uL Potassium 3.2 L (3.5-5.5) mmol/L Anion Gap 12.50 H (4.00-12.00) mmol/L BUN 36.6 H (9.0-27.0) mg/dL Creatinine 5.0 H (0.6-1.5) mg/dL Est GFR (CKD-EPI) 8 L (>=60) BUN/Creatinine Ratio 7.32 L (12.00-20.00) Ratio Calcium 8.6 L (8.7-10.3) mg/dL C-Reactive Protein 5.70 H (0.00-0.80) mg/dL Microbiology - Last 24 Hours (Table) 05/26/23 12:41 Gram Stain - Preliminary Peritoneal Fluid Body Fluid Culture - Preliminary 05/24/23 07:32 Stool Culture - Final Stool 05/25/23 10:54 Blood Culture - Preliminary Blood
--- NOTE | 2023-05-28 15:39 | P.PN ---
Subjective Progress Note Date: 05/28/23 Follow-up for peritoneal dialysis. Objective - Vital Signs Vital signs: Vital Signs Temp 97.8 F 05/28/23 14:26 Pulse 72 05/28/23 14:26 Resp 18 05/28/23 14:26 BP 116/69 05/28/23 14:26 Pulse Ox 97 05/28/23 14:26 FiO2 Intake & Output 05/27/23 05/28/23 05/28/23 18:59 06:59 18:59 Other: # Voids 5 2 # Bowel Movements 2 - Exam No acute distress S1-S2 heard Lungs clear Abdomen soft No edema - Labs CBC & Chem 7: 05/28/23 04:28 05/28/23 04:28 Labs: Abnormal Lab Results - Last 24 Hours (Table) 05/28/23 05/28/23 Range/Units 04:28 04:28 WBC 19.70 H (4.50-10.00) X 10*3/uL RBC 3.02 L (4.10-5.20) X 10*6/uL Hgb 9.1 L (12.0-15.0) d/dL Hct 27.6 L (37.2-46.3) % RDW 16.0 H (11.5-14.5) % Neutrophils # 14.34 H (1.80-7.70) X 10*3/uL Monocytes # 1.51 H (0.20-1.00) X 10*3/uL Eosinophils # 0.36 H (0.04-0.35) X 10*3/uL Potassium 3.2 L (3.5-5.5) mmol/L Anion Gap 12.50 H (4.00-12.00) mmol/L BUN 36.6 H (9.0-27.0) mg/dL Creatinine 5.0 H (0.6-1.5) mg/dL Est GFR (CKD-EPI) 8 L (>=60) BUN/Creatinine Ratio 7.32 L (12.00-20.00) Ratio Calcium 8.6 L (8.7-10.3) mg/dL C-Reactive Protein 5.70 H (0.00-0.80) mg/dL Microbiology - Last 24 Hours (Table) 05/26/23 12:41 Gram Stain - Preliminary Peritoneal Fluid Body Fluid Culture - Preliminary 05/24/23 07:32 Stool Culture - Final Stool 05/25/23 10:54 Blood Culture - Preliminary Blood Assessment and Plan Assessment: #1 ESRD on CCPD. #2 emphysematous left pyelonephritis #3 anemia with chronic kidney disease #4 metabolic bone disease #5 hypertension with chronic kidney disease Plan: #1 continue with current peritoneal dialysis exchanges. #2 ESRD medications #3 discussed with infectious disease, okay with CT with contrast for further evaluation of the pyelonephritis #4 antibiotics as per ID
[2023-05-28] MEDS: ATORVASTATIN 40 MG TAB PO SCH (21:34)
[2023-05-29] MEDS: DIALYSIS (PERIT 1.5%) 2,000 ML 30 G/2,000 ML BAG INTRAPERIT SCH ×4 (00:16→18:06)
[2023-05-29] MEDS: PANTOPRAZOLE 40 MG/10 ML VIAL IV SCH (07:32)
[2023-05-29] MEDS: ENOXAPARIN 30 MG/0.3 ML SYRINGE SQ SCH (07:32)
[2023-05-29] MEDS: FERROUS SULFATE 325 MG TAB PO SCH (07:32)
[2023-05-29] MEDS: allopurinoL 100 MG TAB PO SCH ×2 (07:32→20:49)
[2023-05-29] MEDS: ASPIRIN 325 MG TAB PO SCH (07:32)
[2023-05-29] MEDS: PIPERACILLIN-TAZOBACTAM 3.375 GM in SODIUM CHLORIDE 0.9% 100 ML IVPB SCH ×2 (07:33→20:51)
[2023-05-29] MEDS: SODIUM BICARBONATE TAB 650 MG TAB PO SCH ×2 (07:33→20:50)
[2023-05-29] MEDS: atenoloL 25 MG TAB PO SCH ×2 (07:33→20:49)
[2023-05-29] MEDS: CHOLECALCIFEROL 25 MCG (1000 IU) TABLET PO SCH ×2 (07:33→20:49)
[2023-05-29] MEDS: hydrOXYzine HCL 10 MG TAB PO SCH ×2 (07:34→20:49)
[2023-05-29 08:44] LABS: HCT 31.7 % (34.0-46.0); HGB 10.3 gm/dL (11.4-16.0); MCHC 32.5 g/dL (31.0-37.0); MCV 95.3 fL (80.0-100.0); Platelet Count 390 k/uL (150-450); RBC 3.33 m/uL (3.80-5.40); RDW 15.9 % (11.5-15.5); WBC 15.4 k/uL (3.8-10.6)
[2023-05-29 09:28] LABS: African American GFR (CKD) 10 (>60 ml/min/1.73 sqM); Anion Gap 12 mmol/L; Blood Urea Nitrogen 34 mg/dL (7-17); Calcium 8.4 mg/dL (8.4-10.2); Carbon Dioxide 24 mmol/L (22-30); Chloride 100 mmol/L (98-107); Glucose 146 mg/dL (74-99); Non-African American GFR(CKD) 9 (>60 ml/min/1.73 sqM); Potassium 3.3 mmol/L (3.5-5.1); Sodium 136 mmol/L (137-145)
--- NOTE | 2023-05-29 11:26 | P.PN ---
Subjective Progress Note Date: 05/29/23 Principal diagnosis: Left emphysematous pyelonephritis The patient feels well and has no complaints at this time. She states that at the time of admission, her primary symptoms were weakness, malaise, nausea, and diarrhea, all of which have resolved. She denies flank pain. Objective - Vital Signs Vital signs: Vital Signs Temp 98.3 F 05/29/23 06:00 Pulse 69 05/29/23 06:00 Resp 19 05/29/23 06:00 BP 128/75 05/29/23 06:00 Pulse Ox 93 L 05/29/23 06:00 FiO2 Intake & Output 05/28/23 05/29/23 05/29/23 18:59 06:59 18:59 Intake Total 1080 Balance 1080 Weight 76.1 kg Intake: Oral 1080 Other: # Voids 3 3 # Bowel Movements 2 - Constitutional General appearance: Present: average body habitus, no acute distress - Gastrointestinal General gastrointestinal: Present: soft. Absent: tenderness - Psychiatric Psychiatric: Present: A&O x's 3 - Labs CBC & Chem 7: 05/29/23 08:16 05/29/23 08:16 Labs: Abnormal Lab Results - Last 24 Hours (Table) 05/28/23 05/28/23 Range/Units 04:28 04:28 WBC 19.70 H (4.50-10.00) X 10*3/uL RBC 3.02 L (4.10-5.20) X 10*6/uL Hgb 9.1 L (12.0-15.0) d/dL Hct 27.6 L (37.2-46.3) % RDW 16.0 H (11.5-14.5) % Neutrophils # 14.34 H (1.80-7.70) X 10*3/uL Monocytes # 1.51 H (0.20-1.00) X 10*3/uL Eosinophils # 0.36 H (0.04-0.35) X 10*3/uL Potassium 3.2 L (3.5-5.5) mmol/L Anion Gap 12.50 H (4.00-12.00) mmol/L BUN 36.6 H (9.0-27.0) mg/dL Creatinine 5.0 H (0.6-1.5) mg/dL Est GFR (CKD-EPI) 8 L (>=60) BUN/Creatinine Ratio 7.32 L (12.00-20.00) Ratio Calcium 8.6 L (8.7-10.3) mg/dL C-Reactive Protein 5.70 H (0.00-0.80) mg/dL Microbiology - Last 24 Hours (Table) 05/25/23 10:54 Blood Culture - Preliminary Blood 05/26/23 12:41 Gram Stain - Preliminary Peritoneal Fluid Body Fluid Culture - Preliminary 05/24/23 07:32 Stool Culture - Final Stool Assessment and Plan Assessment: Urine and blood cultures are both negative. She is clinically well and her WBC count is improving. (1) Emphysematous pyelonephritis Current Visit: Yes Status: Acute Code(s): N12 - TUBULO-INTERSTITIAL NEPHRITIS, NOT SPCF ACUTE OR CHRONIC SNOMED Code(s): 712743953 Plan: -Continue Zosyn. The patient has responded well to Zosyn, but given the negative cultures the choice of outpatient antibiotic therapy will be difficult. - Repeat imaging in several days.
[2023-05-29] MEDS ORDERED: POTASSIUM CHLORIDE ER 20 MEQ TAB.ER PO STA (12:12)
--- NOTE | 2023-05-29 12:48 | P.PN ---
Subjective Progress Note Date: 05/29/23 Patient is a 82-year-old female with a PMH of ESRD on peritoneal dialysis, hypertension, and hyperlipidemia who was sent to the emergency room by her batch weigher Dr. Dobbs for concerns of dehydration. Patient reports that over the past 2 weeks she has been feeling ill with persistent diarrhea with nausea and vomiting. Reports that her symptoms essentially resolved 2 days ago and that she has been feeling significantly better, albeit not back to her baseline as of yet. She does report minimal lightheadedness. She was seen at her batch weigher office earlier today, who became concerned as per the patient and advised her to go to the emergency room to be evaluated for dehydration. She denied experiencing abdominal pain, chest discomfort, shortness of fever, cough. She does report waking up with cold sweats over the past few nights. 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 EKG revealed sinus rhythm with first-degree AV block with APCs at 87 bpm. Laboratory evaluation was remarkable for leukocytosis of 28.3, sodium 132, potassium 3.3, BUN 71, creatinine 5.15, magnesium 1.4, AST 40, ALT 77, alk phos 184, lipase 405, with respiratory viral panel negative. 05/25 Patient was seen and examined. No acute events overnight. Reports feeling well. No dizziness, abdominal pain, nausea or vomiting, dysuria. CBC shows WBC count 27.99, Hg 10.8. CMP shows bicarb 21, AG 16, BUN 58, Cr 5, glucose 117, Ca 8.6, ALT 58. Mg 1.4. Urology recommends conservative management with IV Abx. Nephrology consulted to resume PD. 05/26 Patient was seen and examined. No acute events overnight. No complaints. Cultures are pending. ID recommends continuing Zosyn while waiting for cultures to finalize. CBC shows WBC count 25.1. BMP shows Na 133, BUN 53, Cr 4.61, glucose 101. 05/27 Patient was seen and examined. No acute events overnight. No complaints. Culture negative so far. No new labwork done today. Patient would like to go home. 05/28 Patient was seen and examined. Feeling well. CBC shows WBC 19.7 Hg 9.1. BMP shows K 3.2, anion gap 12.5, BUN 36.6, Cr 5, Ca 8.6. Mag 1.7. ID recommends repeat CT with contrast if cleared by Nephrology. 05/29 Patient was seen and examined. No complaints. Discussed with Dr. Murguia, plans for CT AP with contrast, abscess may need draining, may need PICC line and IV Abx. Cultures have been negative so far. CBC shows WBC 15.4 and Hg 10.3. BMP Na 136, K 3.3, BUN 34, Cr 4.35, glucose 146. Vital signs reviewed General: non toxic, no distress, appears at stated age, obese Derm: no unusual rashes/lesions, warm Head: atraumatic, normocephalic, symmetric Eyes: EOMI, no lid lag, anicteric sclera ENT: Nose and ears atraumatic Neck: No cervical lymphadenopathy, trachea midline, supple Cardiovascular: S1S2 reg, no murmur, no edema Lungs: CTA bilateral, no rhonchi, no rales, no accessory muscle use Ext: muscle strength 5 out of 5 in all 4 extremities grossly, no gross muscle atrophy, no contractures Neuro: no gross focal neuro deficits Psych: Alert, oriented, appropriate affect Sepsis secondary to renal abscess Hypokalemia Abnormal LFTs, suspect secondary to ongoing sepsis Resolved: Hypokalemia Chronic conditions: ESRD on peritoneal dialysis, hypertension, hyperlipidemia Based on my assessment of this patient, this patient meets a moderate complexity level of care. Patient has an acute diagnosis of sepsis related to pyelonephritis with possible abscess in the setting of ESRD that poses a threat to life or bodily function. Sepsis secondary to renal abscess: Cultures negative so far. Repeat CT ordered with contrast. Continue Zosyn 3.375g IV BID. Telemetry monitoring. ID and Uro logy on board. Hypokalemia: KCl 40 meq PO x 1. Abnormal LFTs, suspect secondary to ongoing sepsis I have reviewed the following device sales consultant notes: Urology note reviewed. I have reviewed the results of the following tests: CBC, BMP. I have ordered the following tests: CBC, BMP. Agree with CT AP. I have discussed the care of this patient with the following independent historian: I have independently interpreted the following test below: I have discussed the management of this patient with the following physician: Discussed with Dr. Murguia as above. Objective - Vital Signs Vital signs: Vital Signs Temp 97.7 F 10/29/23 07:25 Pulse 74 05/29/23 07:25 Resp 14 05/29/23 07:25 BP 123/84 05/29/23 07:25 Pulse Ox 94 L 05/29/23 07:25 FiO2 Intake & Output 05/28/23 05/29/23 05/29/23 18:59 06:59 18:59 Intake Total 1080 Balance 1080 Weight 76.1 kg Intake: Oral 1080 Other: # Voids 3 3 # Bowel Movements 2 - Labs CBC & Chem 7: 05/29/23 08:16 05/29/23 08:16 Labs: Abnormal Lab Results - Last 24 Hours (Table) 05/29/23 05/29/23 Range/Units 08:16 08:16 WBC 15.4 H (3.8-10.6) k/uL RBC 3.33 L (3.80-5.40) m/uL Hgb 10.3 L (11.4-16.0) gm/dL Hct 31.7 L (34.0-46.0) % RDW 15.9 H (11.5-15.5) % Sodium 136 L (137-145) mmol/L Potassium 3.3 L (3.5-5.1) mmol/L BUN 34 H (7-17) mg/dL Creatinine 4.35 H (0.52-1.04) mg/dL Glucose 146 H (74-99) mg/dL Microbiology - Last 24 Hours (Table) 05/26/23 12:41 Gram Stain - Preliminary Peritoneal Fluid Body Fluid Culture - Preliminary 05/25/23 10:54 Blood Culture - Preliminary Blood
--- NOTE | 2023-05-29 15:36 | P.PN ---
Subjective Progress Note Date: 05/29/23 Follow-up for peritoneal dialysis. Objective - Vital Signs Vital signs: Vital Signs Temp 98.5 F 05/29/23 14:51 Pulse 67 05/29/23 14:51 Resp 16 05/29/23 14:51 BP 140/86 05/29/23 14:51 Pulse Ox 95 05/29/23 14:51 FiO2 Intake & Output 05/28/23 05/29/23 05/29/23 18:59 06:59 18:59 Intake Total 1080 Balance 1080 Weight 76.1 kg Intake: Oral 1080 Other: # Voids 3 3 # Bowel Movements 2 - Exam No acute distress S1-S2 heard Lungs clear Abdomen soft No edema - Labs CBC & Chem 7: 05/29/23 08:16 05/29/23 08:16 Labs: Abnormal Lab Results - Last 24 Hours (Table) 05/29/23 05/29/23 Range/Units 08:16 08:16 WBC 15.4 H (3.8-10.6) k/uL RBC 3.33 L (3.80-5.40) m/uL Hgb 10.3 L (11.4-16.0) gm/dL Hct 31.7 L (34.0-46.0) % RDW 15.9 H (11.5-15.5) % Sodium 136 L (137-145) mmol/L Potassium 3.3 L (3.5-5.1) mmol/L BUN 34 H (7-17) mg/dL Creatinine 4.35 H (0.52-1.04) mg/dL Glucose 146 H (74-99) mg/dL Microbiology - Last 24 Hours (Table) 05/26/23 12:41 Gram Stain - Preliminary Peritoneal Fluid Body Fluid Culture - Preliminary 05/25/23 10:54 Blood Culture - Preliminary Blood Assessment and Plan Assessment: #1 ESRD on CCPD. #2 emphysematous left pyelonephritis #3 anemia with chronic kidney disease #4 metabolic bone disease #5 hypertension with chronic kidney disease Plan: #1 continue with current peritoneal dialysis exchanges. #2 ESRD medications #3 CT done, pending results. #4 antibiotics as per ID
--- NOTE | 2023-05-29 15:52 | P.PN ---
Subjective Progress Note Date: 05/29/23 Principal diagnosis: Pyelonephritis/abscess Patient is a 82-year-old female with a past medical history pertinent for hypertension hyperlipidemia CVA TIA patient did have a history of end-stage renal disease on peritoneal dialysis presented to the ER for evaluation of l ightheadedness weakness CT of abdominal pelvis suspicious for left renal abscess versus emphysematous pyelonephritis On today's evaluation that is 05/29/2023, the patient denies any fever or chills, the patient is breathing comfortably on room air and no need for supplemental oxygen, the patient denies any chest pain or cough, patient denies nausea/vomiting or diarrhea and no abdominal pain The patient white count was down to 15.4, crit is 4.35 Objective - Vital Signs Vital signs: Vital Signs Temp 97.7 F 05/29/23 07:25 Pulse 74 05/29/23 07:25 Resp 14 05/29/23 07:25 BP 123/84 05/29/23 07:25 Pulse Ox 94 L 05/29/23 07:25 FiO2 Intake & Output 05/28/23 05/29/23 05/29/23 18:59 06:59 18:59 Intake Total 1080 Balance 1080 Weight 76.1 kg Intake: Oral 1080 Other: # Voids 3 3 # Bowel Movements 2 - Exam GENERAL DESCRIPTION: An elderly female lying in bed in no distress RESPIRATORY SYSTEM: Unlabored breathing , clear to auscultation anteriorly HEART: S1 S2 regular rate and rhythm , ABDOMEN: Soft , no tenderness EXTREMITIES: No edema feet - Labs CBC & Chem 7: 05/29/23 08:16 05/29/23 08:16 Labs: Abnormal Lab Results - Last 24 Hours (Table) 05/29/23 05/29/23 Range/Units 08:16 08:16 WBC 15.4 H (3.8-10.6) k/uL RBC 3.33 L (3.80-5.40) m/uL Hgb 10.3 L (11.4-16.0) gm/dL Hct 31.7 L (34.0-46.0) % RDW 15.9 H (11.5-15.5) % Sodium 136 L (137-145) mmol/L Potassium 3.3 L (3.5-5.1) mmol/L BUN 34 H (7-17) mg/dL Creatinine 4.35 H (0.52-1.04) mg/dL Glucose 146 H (74-99) mg/dL Microbiology - Last 24 Hours (Table) 05/26/23 12:41 Gram Stain - Preliminary Peritoneal Fluid Body Fluid Culture - Preliminary 05/25/23 10:54 Blood Culture - Preliminary Blood Assessment and Plan (1) Emphysematous pyelonephritis Current Visit: Yes Status: Acute Code(s): N12 - TUBULO-INTERSTITIAL NEPHRITIS, NOT SPCF ACUTE OR CHRONIC SNOMED Code(s): 293571102 (2) Renal abscess Current Visit: Yes Status: Acute Code(s): N15.1 - RENAL AND PERINEPHRIC ABSCESS SNOMED Code(s): 6990322 Plan: 1patient presented to hospital with weakness did have some nausea vomiting and diarrhea initially in this patient with elevated white count abnormal CT suggestive of possible emphysematous pyelonephritis versus renal abscess on the left side, patient has been eval by urology recommending no surgical intervention and will need to cover for the enteric gram-negative the likely pathogen. 2patient CT was reviewed with radiologist wanted to do a repeat CT abdomen with IV contrast for better definition of left renal pathology CT of the abdomen with contrast done this afternoon after cleaning with nephrology report is pending 3-patient to continue with the Zosyn while waiting for the workup to be completed Dictation was produced using [employer] dictation software. please excuse any grammatical, word or spelling errors. Time with Patient: Less than 30
--- NOTE | 2023-05-29 18:43 | CT ---
EXAMINATION TYPE: CT abdomen w con DATE OF EXAM: 05/29/2023 COMPARISON: 05/24/2023 INDICATION: kidney abscess DLP: 864 mGycm, Automated exposure control for dose reduction was used. CONTRAST: 80 mL of Isovue 300. Study performed without Oral Contrast TECHNIQUE: Axial images were obtained from above the diaphragm to the iliac crests in the axial plane at 5 mm thick sections. Reconstructed images are reviewed on the computer in the coronal plane. FINDINGS: Limited CT sections are obtained the lung bases. Minimal bilateral pleural effusions are present.. Moderate size hiatal hernia is present. CT ABDOMEN: Ascites is present. Liver: Multiple small rounded hypodensities are present likely basilar1 hepatic cysts. Spleen: Normal Pancreas: Normal Adrenal glands: The adrenal glands are normal. Gallbladder: Normal Kidneys: No masses are evident. No hydronephrosis is present. Extensive cysts are present throughou t the bilateral kidneys. There are some air collections within the left kidney. This was present prev iously. Aorta: Vascular calcification is within the aorta. Inferior vena cava: Normal. Note is made of diverticulosis within the colon. IMPRESSION: 1. Polycystic kidneys. There is air present within the left kidney. No enhancing abscess is evident. 2. There is ascites. 3. Hiatal hernia. 4. Small pleural effusion. 5. Hepatic cysts
[2023-05-29] MEDS: ATORVASTATIN 40 MG TAB PO SCH (20:49)
[2023-05-30] MEDS: DIALYSIS (PERIT 1.5%) 2,000 ML 30 G/2,000 ML BAG INTRAPERIT SCH ×3 (00:28→12:32)
[2023-05-30] MEDS: PANTOPRAZOLE 40 MG/10 ML VIAL IV SCH (07:51)
[2023-05-30] MEDS: SODIUM BICARBONATE TAB 650 MG TAB PO SCH (07:52)
[2023-05-30] MEDS: CHOLECALCIFEROL 25 MCG (1000 IU) TABLET PO SCH (07:52)
[2023-05-30] MEDS: allopurinoL 100 MG TAB PO SCH (07:52)
[2023-05-30] MEDS: PIPERACILLIN-TAZOBACTAM 3.375 GM in SODIUM CHLORIDE 0.9% 100 ML IVPB SCH (07:52)
[2023-05-30] MEDS: ASPIRIN 325 MG TAB PO SCH (07:52)
[2023-05-30] MEDS: ENOXAPARIN 30 MG/0.3 ML SYRINGE SQ SCH (07:52)
[2023-05-30] MEDS: atenoloL 25 MG TAB PO SCH (07:53)
[2023-05-30] MEDS: FERROUS SULFATE 325 MG TAB PO SCH (07:53)
[2023-05-30] MEDS: hydrOXYzine HCL 10 MG TAB PO SCH (07:54)
[2023-05-30 08:22] VITALS: BP 144/88; PULSE 72; RESP 14; TEMP 98.3
[2023-05-30 10:00] LABS: African American GFR (CKD) 10 (>60 ml/min/1.73 sqM); Anion Gap 9 mmol/L; Blood Urea Nitrogen 30 mg/dL (7-17); Calcium 8.4 mg/dL (8.4-10.2); Carbon Dioxide 26 mmol/L (22-30); Chloride 99 mmol/L (98-107); Glucose 214 mg/dL (74-99); Non-African American GFR(CKD) 9 (>60 ml/min/1.73 sqM); Potassium 3.6 mmol/L (3.5-5.1); Sodium 134 mmol/L (137-145)
--- NOTE | 2023-05-30 11:18 | P.PN ---
Subjective Patient is seen in follow-up for end-stage renal disease. No problems with PD exchanges. No abdominal pain. Hemodynamically stable. Oral intake fair. No active complaints. Vital signs are stable. General: No acute distress. HEENT: Head exam is unremarkable. LUNGS: No audible rhonchi or wheezes. HEART: Rate and Rhythm are regular. ABDOMEN: Nontender. EXTREMITITES: No edema. Objective - Vital Signs Vital signs: Vital Signs Temp 98.3 F 05/30/23 06:57 Pulse 72 05/30/23 06:57 Resp 14 05/30/23 06:57 BP 144/88 05/30/23 06:57 Pulse Ox 93 L 05/30/23 06:57 FiO2 Intake & Output 05/29/23 05/30/23 05/30/23 18:59 06:59 18:59 Intake Total 1080 Balance 1080 Weight 82.8 kg Intake: Oral 1080 Other: # Voids 3 2 # Bowel Movements 1 - Labs CBC & Chem 7: 05/29/23 08:16 05/30/23 09:12 Labs: Abnormal Lab Results - Last 24 Hours (Table) 05/25/23 05/30/23 Range/Units 07:04 09:12 Neutrophils # (Manual) 23.79 H (1.80-7.70) X 10*3/uL Sodium 134 L (137-145) mmol/L BUN 30 H (7-17) mg/dL Creatinine 4.34 H (0.52-1.04) mg/dL Glucose 214 H (74-99) mg/dL Microbiology - Last 24 Hours (Table) 05/26/23 12:41 Gram Stain - Preliminary Peritoneal Fluid Body Fluid Culture - Preliminary Assessment and Plan Plan: Assessment: 1. End-stage renal disease maintained on peritoneal dialysis. 2. Emphysematous left pyelonephritis. On antibiotics. Infectious disease and urology following. Dialysate white cell count 17. 3. Chronic kidney disease mineral bone disease maintained on calcitriol. 4. Metabolic acidosis secondary to chronic kidney disease maintained on oral bicarbonate. 5. Hypomagnesemia from poor intake. Replaced. Plan: Maintain current PD exchanges. Encouraged oral intake.
--- NOTE | 2023-05-30 12:53 | P.PN ---
Subjective Progress Note Date: 05/30/23 Principal diagnosis: Pyelonephritis/abscess Patient is a 82-year-old female with a past medical history pertinent for hypertension hyperlipidemia CVA TIA patient did have a history of end-stage renal disease on peritoneal dialysis presented to the ER for evaluation of l ightheadedness weakness CT of abdominal pelvis suspicious for left renal abscess versus emphysematous pyelonephritis On today's evaluation that is 05/30/2023, the patient continues to be afebrile , the patient is breathing comfortably on room air and denies any shortness of breath, the patient denies any chest pain or cough, patient denies abdominal pain and no nausea/vomiting or diarrhea The patient white count was down to 15.4 as of yesterday CBC is pending from this morning, creatinine is 4.34 Objective - Vital Signs Vital signs: Vital Signs Temp 98.3 F 05/30/23 06:57 Pulse 72 05/30/23 06:57 Resp 14 05/30/23 06:57 BP 144/88 05/30/23 06:57 Pulse Ox 93 L 05/30/23 06:57 FiO2 Intake & Output 05/29/23 05/30/23 05/30/23 18:59 06:59 18:59 Intake Total 1080 Balance 1080 Weight 82.8 kg Intake: Oral 1080 Other: # Voids 3 2 # Bowel Movements 1 - Exam GENERAL DESCRIPTION: An elderly female lying in bed in no distress RESPIRATORY SYSTEM: Unlabored breathing , clear to auscultation anteriorly HEART: S1 S2 regular rate and rhythm , ABDOMEN: Soft , no tenderness EXTREMITIES: No edema feet - Labs CBC & Chem 7: 05/29/23 08:16 05/30/23 09:12 Labs: Abnormal Lab Results - Last 24 Hours (Table) 05/25/23 05/30/23 Range/Units 07:04 09:12 Neutrophils # (Manual) 23.79 H (1.80-7.70) X 10*3/uL Sodium 134 L (137-145) mmol/L BUN 30 H (7-17) mg/dL Creatinine 4.34 H (0.52-1.04) mg/dL Glucose 214 H (74-99) mg/dL Microbiology - Last 24 Hours (Table) 05/26/23 12:41 Gram Stain - Preliminary Peritoneal Fluid Body Fluid Culture - Preliminary Assessment and Plan (1) Emphysematous pyelonephritis Current Visit: Yes Status: Acute Code(s): N12 - TUBULO-INTERSTITIAL NEPHRI TIS, NOT SPCF ACUTE OR CHRONIC SNOMED Code(s): 871121066 (2) Renal abscess Current Visit: Yes Status: Acute Code(s): N15.1 - RENAL AND PERINEPHRIC ABSCESS SNOMED Code(s): 7873649 Plan: 1patient presented to hospital with weakness did have some nausea vomiting and diarrhea initially in this patient with elevated white count abnormal CT suggestive of possible emphysematous pyelonephritis versus renal abscess on the left side, patient has been eval by urology recommending no surgical intervention and will need to cover for the enteric gram-negative the likely pathogen. 2patient CT was reviewed with radiologist wanted to do a repeat CT abdomen with IV contrast for better definition of left renal pathology CT of the abdomen with contrast was done 05/29/2023 reported negative for any abscess 3-patient will be given a two-week course of oral Augmentin to be on the safe side and close outpatient follow-up discussed with the admitting team working on discharge Dictation was produced using [employer] dictation software. please excuse any grammatical, word or spelling errors. Time with Patient: Less than 30
--- NOTE | 2023-05-30 13:24 | P.DS ---
Providers Date of admission: 05/25/23 08:54 Expected date of discharge: 05/30/23 Attending physician: Kamille Yeager MD Consults: 05/24/23 20:04 Consult Physician Routine Consulting Provider: Cat Dobbs Consult Reason/Comments: ckd, dehydration Do you want consulting provider notified?: Yes 05/24/23 22:33 Consult Physician Urgent Consulting Provider: Otis Chew Consult Reason/Comments: Renal abscess vs pyelo Do you want consulting provider notified?: Yes 05/25/23 08:51 Consult Physician Urgent Consulting Provider: Luz Marina Murguia Consult Reason/Comments: renal abscess> Do you want consulting provider notified?: Yes Primary care physician: [facility] Course: Patient is a 82-year-old female with a PMH of ESRD on peritoneal dialysis, hypertension, and hyperlipidemia who was sent to the emergency room by 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 Dobbs for concerns of dehydration. Patient reports that over the past 2 weeks she has been feeling ill with persistent diarrhea with nausea and vomiting. Reports that her symptoms essentially resolved 2 days ago and that she has been feeling significantly better, albeit not back to her baseline as of yet. She does report minimal lightheadedness. She was seen at her company tanker truck driver office earlier today, who became concerned as per the patient and advised her to go to the emergency room to be evaluated for dehydration. She denied experiencing abdominal pain, chest discomfort, shortness of fever, cough. She does report waking up with cold sweats over the past few nights. 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 EKG revealed sinus rhythm with first-degree AV block with APCs at 87 bpm. Laboratory evaluation was remarkable for leukocytosis of 28.3, sodium 132, potassium 3.3, BUN 71, creatinine 5.15, magnesium 1.4, AST 40, ALT 77, alk phos 184, lipase 405, with respiratory viral panel negative. 05/25 Patient was seen and examined. No acute events overnight. Reports feeling well. No dizziness, abdominal pain, nausea or vomiting, dysuria. CBC shows WBC count 27.99, Hg 10.8. CMP shows bicarb 21, AG 16, BUN 58, Cr 5, glucose 117, Ca 8.6, ALT 58. Mg 1.4. Urology recommends conservative management with IV Abx. Nephrology consulted to resume PD. 05/26 Patient was seen and examined. No acute events overnight. No complaints. Cultures are pending. ID recommends continuing Zosyn while waiting for cultures to finalize. CBC shows WBC count 25.1. BMP shows Na 133, BUN 53, Cr 4.61, glucose 101. 05/27 Patient was seen and examined. No acute events overnight. No complaints. Culture negative so far. No new labwork done today. Patient would like to go home. 05/28 Patient was seen and examined. Feeling well. CBC shows WBC 19.7 Hg 9.1. BMP shows K 3.2, anion gap 12.5, BUN 36.6, Cr 5, Ca 8.6. Mag 1.7. ID recommends repeat CT with contrast if cleared by Nephrology. 05/29 Patient was seen and examined. No complaints. Discussed with Dr. Murguia, plans for CT AP with contrast, abscess may need draining, may need PICC line and IV Abx. Cultures have been negative so far. CBC shows WBC 15.4 and Hg 10.3. BMP Na 136, K 3.3, BUN 34, Cr 4.35, glucose 146. 05/30 Patient was seen and examined. Feeling well. CT AP was repeated with contrast which shows polycystic kidneys, ascites, hiatal hernia, small pleural effusions, hepatic cysts. Case discussed with Dr. Murguia, recommends 14 days of Augmentin. BMP shows Na 134, BUN 30, Cr 4.34, glucose 214. Pertinent studies include EKG, CTAP, CTAP w/ contrast. Vital signs reviewed General: non toxic, no distress, appears at stated age, obese Derm: no unusual rashes/lesions, warm Head: atraumatic, normocephalic, symmetric Eyes: EOMI, no lid lag, anicteric sclera ENT: Nose and ears atraumatic Neck: No cervical lymphadenopathy, trachea midline, supple Cardiovascular: S1S2 reg, no murmur, no edema Lungs: CTA bilateral, no rhonchi, no rales, no accessory muscle use Ext: muscle strength 5 out of 5 in all 4 extremities grossly, no gross muscle atrophy, no contractures Neuro: no gross focal neuro deficits Psych: Alert, oriented, appropriate affect Discharge Diagnosis: Sepsis secondary to renal abscess Hypokalemia Abnormal LFTs, suspect secondary to ongoing sepsis Resolved: Hypokalemia Chronic conditions: ESRD on peritoneal dialysis, hypertension, hyperlipidemia This complex discharge took 35 minutes to complete. Patient Condition at Discharge: Stable Plan - Discharge Summary Discharge Rx Participant: Yes New Discharge Prescriptions: New Amoxic-Pot Clav 875-125Mg [Augmentin 875-125] 1 tab PO Q12HR 14 Days #28 tab Continue Omeprazole [PriLOSEC] 20 mg PO HS [place]-3 Fatty Acids/Fish Oil [Fish Oil 1,000 mg Softgel] 1,000 mg PO BID atenoloL [Tenormin] 25 mg PO BID allopurinoL [Zyloprim] 100 mg PO BID Estrogens, Conjugated Cream [Premarin Vaginal Cream] 1 applicator VAGINAL MOWEFR Sodium Bicarbonate Tab 650 mg PO BID Ferrous Sulfate [Iron (65 MG Elemental)] 325 mg PO DAILY hydrOXYzine HCL [Atarax] 10 mg PO DAILY Cholecalciferol [Vitamin D3 (25 Mcg = 1000 Iu)] 25 mcg PO BID Rosuvastatin [Crestor] 20 mg PO HS Liqua Martha Protein 1 dose PO BID hydrOXYzine HCL [Atarax] 20 mg PO HS Cranberry 4200mg 2 tab PO DAILY Aspirin EC [Ecotrin] 325 mg PO DAILY calcitrioL [Calcitriol] 0.25 mcg PO MO Discontinued metroNIDAZOLE [Flagyl] 500 mg PO TID Discharge Medication List [place]-3 Fatty Acids/Fish Oil [Fish Oil 1,000 mg Softgel] 1,000 mg PO BID 05/11/14 [History] Omeprazole [PriLOSEC] 20 mg PO HS 05/11/14 [History] allopurinoL [Zyloprim] 100 mg PO BID 05/22/17 [History] atenoloL [Tenormin] 25 mg PO BID 05/22/17 [History] Ferrous Sulfate [Iron (65 MG Elemental)] 325 mg PO DAILY 11/03/21 [History] Sodium Bicarbonate Tab 650 mg PO BID 11/03/21 [History] hydrOXYzine HCL [Atarax] 10 mg PO DAILY 11/03/21 [History] Cholecalciferol [Vitamin D3 (25 Mcg = 1000 Iu)] 25 mcg PO BID 09/15/22 [History] Rosuvastatin [Crestor] 20 mg PO HS 09/15/22 [History] Aspirin EC [Ecotrin] 325 mg PO DAILY 05/24/23 [History] Cranberry 4200mg 2 tab PO DAILY 05/24/23 [History] Estrogens, Conjugated Cream [Premarin Vaginal Cream] 1 applicator VAGINAL MOWEFR 05/24/23 [History] Liqua Martha Protein 1 dose PO BID 05/24/23 [History] calcitrioL [Calcitriol] 0.25 mcg PO MO 05/24/23 [History] hydrOXYzine HCL [Atarax] 20 mg PO HS 05/24/23 [History] Amoxic-Pot Clav 875-125Mg [Augmentin 875-125] 1 tab PO Q12HR 14 Days #28 tab 05/30/23 [Rx] Follow up Appointment(s)/Referral(s): Keith Riley DO [Primary Care Provider] - 1-2 days Luz Marina Murguia MD [STAFF PHYSICIAN] - 06/13/23 2:30 pm Patient Instructions/Handouts: Urinary Tract Infection in Older Adults (DC) Activity/Diet/Wound Care/Special Instructions: Diet: Renal Continue peritoneal dialysis. Take Augmentin for 2 weeks. Discharge Disposition: HOME SELF-CARE
--- NOTE | 2023-05-30 13:45 | P.PN ---
Subjective Progress Note Date: 05/30/23 Principal diagnosis: urinary retention no acute overnight events, CT yesterday showed improvement in the air within the kidney. hemodynamically she is stable, denies any flank pain, or any voiding symptoms. Objective - Vital Signs Vital signs: Vital Signs Temp 98.3 F 05/30/23 06:57 Pulse 72 05/30/23 06:57 Resp 14 05/30/23 06:57 BP 144/88 05/30/23 06:57 Pulse Ox 93 L 05/30/23 06:57 FiO2 Intake & Output 05/29/23 05/30/23 05/30/23 18:59 06:59 18:59 Intake Total 1080 Balance 1080 Weight 82.8 kg Intake: Oral 1080 Other: # Voids 3 2 # Bowel Movements 1 - Constitutional General appearance: Present: no acute distress - Gastrointestinal General gastrointestinal: Present: soft. Absent: distended, tenderness - Psychiatric Psychiatric: Present: A&O x's 3 - Labs CBC & Chem 7: 05/29/23 08:16 05/30/23 09:12 Labs: Abnormal Lab Results - Last 24 Hours (Table) 05/25/23 05/30/23 Range/Units 07:04 09:12 Neutrophils # (Manual) 23.79 H (1.80-7.70) X 10*3/uL Sodium 134 L (137-145) mmol/L BUN 30 H (7-17) mg/dL Creatinine 4.34 H (0.52-1.04) mg/dL Glucose 214 H (74-99) mg/dL Microbiology - Last 24 Hours (Table) 05/26/23 12:41 Gram Stain - Preliminary Peritoneal Fluid Body Fluid Culture - Preliminary Assessment and Plan Assessment: 82-year-old end-stage renal disease on peritoneal dialysis, admitted with Emphesematous nephritis. clinically, it's not consistent with empheseatous nephritis. On CT there is improvement of air within the renal cyst. Discussed given the lack of symptoms, white count trending down and normal hemodynamics no acute surgical intervention from urology standpoint. recommend continue antibiotics,
[2023-05-30] MEDS ORDERED: POTASSIUM CHLORIDE ER 20 MEQ TAB.ER PO STA (14:32)
== END 2023-05-30 14:35 | disposition home or self-care (01) | DRG 871 ==
LOC: EC 16:45 → 5NMEDONC 20:04 → 4SSUR 05-25 00:07 → OBSVTOIN 05-25 08:54
PROVIDERS: ADMIT Internal Medicine; ATTEND Internal Medicine
PROC: 3E1M39Z Irrigation of Peritoneal Cavity using Dialysate, Percutaneous Approach (ICD-10-PCS; principal; 2023-05-24)
DX: A41.9 Sepsis, unspecified organism (principal); N15.1 Renal and perinephric abscess; N18.6 End stage renal disease; I12.0 Hypertensive chronic kidney disease with stage 5 chronic kidney disease or end stage renal disease; E87.20 Acidosis, unspecified; Q61.3 Polycystic kidney, unspecified; R18.8 Other ascites; Q61.9 Cystic kidney disease, unspecified; N12 Tubulo-interstitial nephritis, not specified as acute or chronic; D63.1 Anemia in chronic kidney disease; E83.9 Disorder of mineral metabolism, unspecified; I95.9 Hypotension, unspecified; E11.22 Type 2 diabetes mellitus with diabetic chronic kidney disease; Z99.2 Dependence on renal dialysis; Z11.52 Encounter for screening for COVID-19; K76.89 Other specified diseases of liver; E78.5 Hyperlipidemia, unspecified; K44.9 Diaphragmatic hernia without obstruction or gangrene; I44.0 Atrioventricular block, first degree; E83.42 Hypomagnesemia; E86.0 Dehydration; E87.6 Hypokalemia; I83.90 Asymptomatic varicose veins of unspecified lower extremity; M10.9 Gout, unspecified; M54.9 Dorsalgia, unspecified; R79.89 Other specified abnormal findings of blood chemistry; Z79.82 Long term (current) use of aspirin; Z79.899 Other long term (current) drug therapy; Z87.440 Personal history of urinary (tract) infections; Z86.73 Personal history of transient ischemic attack (TIA), and cerebral infarction without residual deficits; Z96.653 Presence of artificial knee joint, bilateral; Z88.3 Allergy status to other anti-infective agents; Z88.8 Allergy status to other drugs, medicaments and biological substances
CPT/HCPCS: 36415; 74160; 74176; 80048; 80053; 81001; 83605; 83690; 83735; 84100; 85025; 85027; 86140; 87040; 87045; 87046; 87070; 87086; 87205; 87324; 87636; 89050; 93005; 96361; 96374; 99285

== ENCOUNTER 2023-06-01 14:32 | Inpatient (IN) | payer MEDICARE ==
--- NOTE | 2023-06-01 15:04 | ED ---
Nausea/Vomiting/Diarrhea HPI - General Source: patient, RN notes reviewed Mode of arrival: wheelchair Limitations: no limitations - History of Present Illness MD complaint: nausea, vomiting <Susie High - Last Filed: 06/01/23 15:04> <Timoteo Ybarra - Last Filed: 06/01/23 20:15> - General Chief complaint: Nausea/Vomiting/Diarrhea Stated complaint: Nausea and vomiting Time Seen by Provider: 06/01/23 15:03 - History of Present Illness Initial comments: This is an 82 year old female who presents to the emergency department for nausea and vomiting. Patient was discharged on 05/30 for a UTI, and since then she has had ongoing nausea and vomiting. Denies any abdominal pain. (Susie High) This is an 82-year-old female who presents emergency Department stating that she was admitted for 5 days last week and went home on Tuesday with the diagnosis of urinary tract infection that affected her kidneys. Patient states she went home on Augmentin and ever since she's been on the Augmentin she has been vomiting and can't keep any food or liquid down. Patient states she thinks it's antibiotics. Patient denies diarrhea but states she does have some loose stools lately. Patient denies fevers chills. Patient denies dysuria hematuria urinary frequency. Patient denies any cough patient denies any back pain. (Timoteo Ybarra) - Related Data Home Medications Medication Instructions Recorded Confirmed [place]-3 Fatty Acids/Fish Oil [Fish 1,000 mg PO BID 05/11/14 05/24/23 Oil 1,000 mg Softgel] Omeprazole [PriLOSEC] 20 mg PO HS 05/11/14 05/24/23 allopurinoL [Zyloprim] 100 mg PO BID 05/22/17 05/24/23 atenoloL [Tenormin] 25 mg PO BID 05/22/17 05/24/23 Ferrous Sulfate [Iron (65 MG 325 mg PO DAILY 11/03/21 05/24/23 Elemental)] Sodium Bicarbonate Tab 650 mg PO BID 11/03/21 05/24/23 hydrOXYzine HCL [Atarax] 10 mg PO DAILY 11/03/21 05/24/23 Cholecalciferol [Vitamin D3 (25 25 mcg PO BID 09/15/22 05/24/23 Mcg = 1000 Iu)] Rosuvastatin [Crestor] 20 mg PO HS 09/15/22 05/24/23 Aspirin EC [Ecotrin] 325 mg PO DAILY 05/24/23 05/24/23 Cranberry 4200mg 2 tab PO DAILY 05/24/23 05/24/23 Estrogens, Conjugated Cream 1 applicator VAGINAL MOWEFR 05/24/23 05/24/23 [Premarin Vaginal Cream] Liqua Martha Protein 1 dose PO BID 05/24/23 05/24/23 calcitrioL [Calcitriol] 0.25 mcg PO MO 05/24/23 05/24/23 hydrOXYzine HCL [Atarax] 20 mg PO HS 05/24/23 05/24/23 Previous Rx's Medication Instructions Recorded Amoxic-Pot Clav 875-125Mg 1 tab PO Q12HR 14 Days #28 tab 05/30/23 [Augmentin 875-125] Allergies Allergy/AdvReac Type Severity Reaction Status Date / Time levofloxacin [From Levaquin] Allergy Hallucinati Verified 06/01/23 15:05 ons losartan [Losartan] Allergy Unknown Verified 06/01/23 15:05 LUANA Inhibitors AdvReac Cough Verified 06/01/23 15:05 Review of Systems ROS Other: All systems not noted in ROS Statement are negative. <Susie High - Last Filed: 06/01/23 15:04> ROS Other: All systems not noted in ROS Statement are negative. <Timoteo Ybarra - Last Filed: 06/01/23 20:15> ROS Statement: Those systems with pertinent positive or pertinent negative responses have been documented in the HPI. 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 History of Any Multi-Drug Resistant Organisms: None Reported Past Surgical History: Section, Hysterectomy, Joint Replacement, Orthopedic Surgery Additional Past Surgical History / Comment(s): 3 C-Sections, hysterectomy with vaginal repair, bilateral total knees, R shoulder acromioplasty, excision distal clavicle rotator cuff repair, bilateral cataract removal with lens implants, L breast bx-benign, varicose vein stripping bilaterally, peritoneal HD cath Past Anesthesia/Blood Transfusion Reactions: No Reported Reaction Past Psychological History: No Psychological Hx Reported Additional Psychological History / Comment(s): Pt resides with her spouse. She is independent. She uses no assistive devices. She drives. Smoking Status: Never smoker Past Alcohol Use History: None Reported Past Drug Use History: None Reported - Past Family History Brother(s) Family Medical History: Renal Disease Father Family Medical History: Unable to Obtain Mother Family Medical History: Coronary Artery Disease (CAD), CVA/TIA Additional Family Medical History / Comment(s): Mother at 92 yrs of age. She had TIA's. <Susie High - Last Filed: 06/01/23 15:04> General Exam <Susie High - Last Filed: 06/01/23 15:04> <Timoteo Ybarra - Last Filed: 06/01/23 20:15> - General Exam Comments Initial Comments: General: Well-appearing, nontoxic, no acute distress. Head: Normocephalic, atraumatic Eyes: PERRLA, EOMI ENT: Airway patent Chest: Nonlabored breathing Skin: No visual rash, normal skin tone Neuro: Alert and oriented 3 Musculoskeletal: No gross abnormalities I completed the quick note portion of this chart signed Susie High PA-C (Susie High) GENERAL: Patient is well-developed and well-nourished. Patient is nontoxic and well- hydrated and is in mild distress. ENT: Neck is soft and supple. No significant lymphadenopathy is noted. Oropharynx is clear. Moist mucous membranes. Neck has full range of motion without eliciting any pain. EYES: The sclera were anicteric and conjunctiva were pink and moist. Extraocular movements were intact and pupils were equal round and reactive to light. Eyelids were unremarkable. PULMONARY: Unlabored respirations. Good breath sounds bilaterally. No audible rales rho nchi or wheezing was noted. CARDIOVASCULAR: There is a regular rate and rhythm without any murmurs gallops or rubs. ABDOMEN: Soft and nontender with normal bowel sounds. SKIN: Skin is clear with no lesions or rashes and otherwise unremarkable. NEUROLOGIC: Patient is alert and oriented x3. Cranial nerves II through XII are grossly intact. Motor and sensory are also intact. Normal speech, volume and content. Symmetrical smile. MUSCULOSKELETAL: Normal extremities with adequate strength and full range of motion. LYMPHATICS: No significant lymphadenopathy is noted PSYCHIATRIC: Normal psychiatric evaluation. (Timoteo Ybarra) Course Vital Signs 06/01/23 06/01/23 15:02 20:12 Temperature 99.3 F Pulse Rate 78 79 Respiratory 16 18 Rate Blood Pressure 100/67 90/61 O2 Sat by Pulse 94 L 94 L Oximetry Medical Decision Making - Lab Data Result diagrams: 06/01/23 17:12 06/01/23 17:12 <Timoteo Ybarra - Last Filed: 06/01/23 20:15> - Medical Decision Making Was pt. sent in by a medical professional or institution (, PA, FINANCIAL PROFESSIONAL, urgent care, hospital, or penitentiary...) When possible be specific @ -No Did you speak to anyone other than the patient for history (EMS, parent, family, police, friend...)? What history was obtained from this source @ -No Did you review nursing and triage notes (agree or disagree)? Why? @ -I reviewed and agree with nursing and triage notes Were old charts reviewed (outside hosp., previous admission, EMS record, old EKG, old radiological studies, urgent care reports/EKG's, penitentiary records)? Report findings @ -I reviewed prior charts from prior lab work on this patient Differential Diagnosis (chest pain, altered mental status, abdominal pain women, abdominal pain men, vaginal bleeding, weakness, fever, dyspnea, syncope, headache, dizziness, GI bleed, back pain, seizure, CVA, palpatations, mental health, musculoskeletal)? @ -Differential Abdominal Pain Women: Appendicitis, Cholecystitis, diverticulosis, urinary tract infection, ischemic bowel, pancreatitis, hepatitis, UTI, gastroenteritis, AAA, incarcerated hernia, bowel obstruction, constipation, inflammatory bowel, hepatitis, peptic ulcer disease, splenic infarction, perforated viscus, vulvitis, ovarian torsion, PID, kidney stone, placenta abruption, this is not meant to be an all-inclusive list EKG interpreted by me (3pts min.). @ -As above X-rays interpreted by me (1pt min.). @ -None done CT interpreted by me (1pt min.). @ -None done U/S interpreted by me (1pt. min.). @ -None done What testing was considered but not performed or refused? (CT, X-rays, U/S, labs)? Why? @ -None What meds were considered but not given or refused? Why? @ -None Did you discuss the management of the patient with other professionals (pr ofessionals i.e. , PA, FINANCIAL PROFESSIONAL, lab, RT, psych nurse, mental health social worker, director human services, teacher, telecommunications officer, lead case manager)? Give summary @ -I spoke with physician's and they agreed to admit the patient Was smoking cessation discussed for >3mins.? @ -No Was critical care preformed (if so, how long)? @ -No Were there social determinants of health that impacted care today? How? (Homelessness, low income, unemployed, alcoholism, drug addiction, transportation, low edu. Level, literacy, decrease access to med. care, shelter, rehab)? @ -No Was there de-escalation of care discussed even if they declined (Discuss DNR or withdrawal of care, Hospice)? DNR status @ -No What co-morbidities impacted this encounter? (DM, HTN, Smoking, COPD, CAD, Cancer, CVA, ARF, Chemo, Hep., AIDS, mental health diagnosis, sleep apnea, morbi d obesity)? @ -None Was patient admitted / discharged? Hospital course, mention meds given and route, prescriptions, significant lab abnormalities, going to OR and other pertinent info. @ -Patient's microbiology on the urine showed that the patient had a urinary tract infection with E. coli and it was resistant to Augmentin whether or not t hat was infection the patient was admitted for I don't know but we will switch the patient's antibiotic to Rocephin and admit her because her white count is also 37,000 and she is unable to keep fluid or food or antibiotics down. I spoke with [facility] physicians he agreed to admit the patient admitted the patient wrote admitting orders Undiagnosed new problem with uncertain prognosis? @ -No Drug Therapy requiring intensive monitoring for toxicity (Heparin, Nitro, Insulin, Cardizem)? @ -No Were any procedures done? @ -No Diagnosis/symptom? @ -Urinary Tract infection Acute, or Chronic, or Acute on Chronic? @ -Acute Uncomplicated (without systemic symptoms) or Complicated (systemic symptoms)? @ -Complicated Side effects of treatment? @ -No Exacerbation, Progression, or Severe Exacerbation? @ -No Poses a threat to life or bodily function? How? (Chest pain, [place], OR, pneumonia, PE, COPD, DKA, ARF, appy, cholecystitis, CVA, Diverticulitis, Homicidal, Suicidal, threat to staff... and all critical care pts) @ -Yes it could lead to sepsis and end organ dysfunction Diagnosis/symptom? @ -Leukocytosis Acute, or Chronic, or Acute on Chronic? @ -Acute Uncomplicated (without systemic symptoms) or Complicated (systemic symptoms)? @ -Complicated Side effects of treatment? @ -none Exacerbation, Progression, or Severe Exacerbation] @ -no Poses a threat to life or bodily function? @ -no (Timoteo Ybarra) - Lab Data Lab Results 06/01/23 06/01/23 06/01/23 Range/Units 17:12 17:12 17:12 WBC 37.3 H (3.8-10.6) k/uL RBC 3.46 L (3.80-5.40) m/uL Hgb 10.8 L (11.4-16.0) gm/dL Hct 32.6 L (34.0-46.0) % MCV 94.2 (80.0-100.0) fL MCH 31.1 (25.0-35.0) pg MCHC 33.0 (31.0-37.0) g/dL RDW 15.7 H (11.5-15.5) % Plt Count 387 (150-450) k/uL MPV 8.1 Neutrophils % 93 % Lymphocytes % 1 % Monocytes % 5 % Eosinophils % 0 % Basophils % 0 % Neutrophils # 34.8 H (1.3-7.7) k/uL Lymphocytes # 0.5 L (1.0-4.8) k/uL Monocytes # 1.9 H (0-1.0) k/uL Eosinophils # 0.1 (0-0.7) k/uL Basophils # 0.0 (0-0.2) k/uL Manual Slide Review Performed Sodium 134 L (137-145) mmol/L Potassium 3.7 (3.5-5.1) mmol/L Chloride 102 (98-107) mmol/L Carbon Dioxide 21 L (22-30) mmol/L Anion Gap 11 mmol/L BUN 36 H (7-17) mg/dL Creatinine 4.70 H (0.52-1.04) mg/dL Est GFR (CKD-EPI)AfAm 9 (>60 ml/min/1.73 sqM) Est GFR (CKD-EPI)NonAf 8 (>60 ml/min/1.73 sqM) Glucose 79 (74-99) mg/dL Lactic Ac Sepsis Rflx Plasma Lactic Acid Narciso 2.9 H* (0.7-2.0) mmol/L Calcium 8.7 (8.4-10.2) mg/dL Total Bilirubin 0.7 (0.2-1.3) mg/dL AST 46 H (14-36) U/L ALT 28 (4-34) U/L Alkaline Phosphatase 154 H (38-126) U/L Total Protein 5.7 L (6.3-8.2) g/dL Albumin 2.5 L (3.5-5.0) g/dL Urine Color Urine Appearance (Clear) Urine pH (5.0-8.0) Ur Specific [place] (1.001-1.035) Urine Protein (Negative) Urine Glucose (UA) (Negative) Urine Ketones (Negative) Urine Blood (Negative) Urine Nitrite (Negative) Urine Bilirubin (Negative) Urine Urobilinogen (<2.0) mg/dL Ur Leukocyte Esterase (Negative) Urine RBC (0-5) /hpf Urine WBC (0-5) /hpf Ur Squamous Epith Cells (0-4) /hpf Urine Bacteria (None) /hpf Urine Mucus (None) /hpf 06/01/23 06/01/23 06/01/23 Range/Units 18:10 18:44 18:44 WBC (3.8-10.6) k/uL RBC (3.80-5.40) m/uL Hgb (11.4-16.0) gm/dL Hct (34.0-46.0) % MCV (80.0-100.0) fL MCH (25.0-35.0) pg MCHC (31.0-37.0) g/dL RDW (11.5-15.5) % Plt Count (150-450) k/uL MPV Neutrophils % % Lymphocytes % % Monocytes % % Eosinophils % % Basophils % % Neutrophils # (1.3-7.7) k/uL Lymphocytes # (1.0-4.8) k/uL Monocytes # (0-1.0) k/uL Eosinophils # (0-0.7) k/uL Basophils # (0-0.2) k/uL Manual Slide Review Sodium (137-145) mmol/L Potassium (3.5-5.1) mmol/L Chloride (98-107) mmol/L Carbon Dioxide (22-30) mmol/L Anion Gap mmol/L BUN (7-17) mg/dL Creatinine (0.52-1.04) mg/dL Est GFR (CKD-EPI)AfAm (>60 ml/min/1.73 sqM) Est GFR (CKD-EPI)NonAf (>60 ml/min/1.73 sqM) Glucose (74-99) mg/dL Lactic Ac Sepsis Rflx Y Plasma Lactic Acid Narciso 2.7 H* (0.7-2.0) mmol/L Calcium (8.4-10.2) mg/dL Total Bilirubin (0.2-1.3) mg/dL AST (14-36) U/L ALT (4-34) U/L Alkaline Phosphatase (38-126) U/L Total Protein (6.3-8.2) g/dL Albumin (3.5-5.0) g/dL Urine Color Yellow Urine Appearance Cloudy H (Clear) Urine pH 6.5 (5.0-8.0) Ur Specific [place] 1.020 (1.001-1.035) Urine Protein 2+ H (Negative) Urine Glucose (UA) Negative (Negative) Urine Ketones Negative (Negative) Urine Blood Small H (Negative) Urine Nitrite Negative (Negative) Urine Bilirubin Negative (Negative) Urine Urobilinogen <2.0 (<2.0) mg/dL Ur Leukocyte Esterase Small H (Negative) Urine RBC 20 H (0-5) /hpf Urine WBC 13 H (0-5) /hpf Ur Squamous Epith Cells 9 H (0-4) /hpf Urine Bacteria Occasional H (None) /hpf Urine Mucus Rare H (None) /hpf Disposition <Susie High - Last Filed: 06/01/23 15:04> Time of Disposition: 19:10 <Timoteo Ybarra - Last Filed: 06/01/23 20:15> Clinical Impression: Urinary tract infection, Leukocytosis Disposition: ADMITTED IP TO THIS HOSP Referrals: Keith Riley DO [Primary Care Provider] - 1-2 days
[2023-06-01 17:49] LABS: ALT 28 U/L (4-34); AST 46 U/L (14-36); African American GFR (CKD) 9 (>60 ml/min/1.73 sqM); Albumin 2.5 g/dL (3.5-5.0); Alkaline Phosphatase 154 U/L (38-126); Anion Gap 11 mmol/L; Blood Urea Nitrogen 36 mg/dL (7-17); Calcium 8.7 mg/dL (8.4-10.2); Carbon Dioxide 21 mmol/L (22-30); Chloride 102 mmol/L (98-107); Glucose 79 mg/dL (74-99); Non-African American GFR(CKD) 8 (>60 ml/min/1.73 sqM); Potassium 3.7 mmol/L (3.5-5.1); Sodium 134 mmol/L (137-145); Total Bilirubin 0.7 mg/dL (0.2-1.3); Total Protein 5.7 g/dL (6.3-8.2)
[2023-06-01 18:01] LABS: Basophils % (A) 0 %; Eosinophils # (A) 0.1 k/uL (0-0.7); Eosinophils % (A) 0 %; HCT 32.6 % (34.0-46.0); HGB 10.8 gm/dL (11.4-16.0); Lymphocytes # (A) 0.5 k/uL (1.0-4.8); Lymphocytes % (A) 1 %; MCH 31.1 pg (25.0-35.0); MCV 94.2 fL (80.0-100.0); Mean Platelet Volume 8.1; Monocytes # (A) 1.9 k/uL (0-1.0); Monocytes % (A) 5 %; Neutrophils # (A) 34.8 k/uL (1.3-7.7); Neutrophils % (A) 93 %; Platelet Count 387 k/uL (150-450); RBC 3.46 m/uL (3.80-5.40); RDW 15.7 % (11.5-15.5); WBC 37.3 k/uL (3.8-10.6)
[2023-06-01] MEDS ORDERED: cefTRIAXone IN SWFI 1,000 MG/10 ML SYRINGE IVP STA (18:32)
[2023-06-01 19:24] LABS: Appearance,Urine Cloudy (Clear); Bacteria,Urine Occasional /hpf; Bilirubin,Urine Negative (Negative); Blood,Urine Small (Negative); Color,Urine Yellow; Glucose,Urine (UA) Negative (Negative); Ketones,Urine Negative (Negative); Leukocyte Esterase,Urine Small (Negative); Mucus,Urine Rare /hpf; Nitrite,Urine Negative (Negative); PH, Urine 6.5 (5.0-8.0); Protein,Urine 2+ (Negative); RBC,Urine 20 /hpf (0-5); Squamous Epithelial Cell,Urine 9 /hpf (0-4); Urobilinogen,Urine <2.0 mg/dL (<2.0); WBC,Urine 13 /hpf (0-5)
[2023-06-01] MEDS ORDERED: SODIUM CHLORIDE 0.9% 500 ML 500 ML IV STA (20:22)
--- NOTE | 2023-06-02 03:47 | P.HPIM ---
History of Present Illness H&P Date: 06/01/23 Chief Complaint: nausea and vomiting 82 year old female with ESRD on PD, hypertension patient was recently hospitalized for 5 days , where she was treated for UTI, discharged on augmentin on 05/30 ,. she is returning due to repeated nausea and vomiting not tolerating PO intake , denies any GI bleeding , denies any fever, chills. denies any chest pain or trouble breathing. she is compliant with her dialysis sessions. she denies any fever, chills, cough, sore throat, chest pain , trouble breathing , nausea , vomiting, abd pain , changes in urinary or bowel habits. she denies tobacco smoking, she claims that she quit meth 3 months ago , and alcohol 1 year. review of systems Pertinent positives as noted in HPI. All other systems were reviewed and are negative on exam Constitutional: No acute distress, conversant, pleasant Eyes: Anicteric sclerae, moist conjunctiva, Pupils equal round reactive to light ENMT: NC/AT Oropharynx clear, no erythema, or exudates Neck: Supple, no masses, or JVD No carotid bruits No thyromegaly Lungs: Clear to auscultation Clear to percussion Normal respiratory effort, no accessory muscle use Cardiovascular: Heart regular in rate and rhythm, No murmurs, gallops, or rubs No peripheral edema Abdominal: Soft, PD cath in place, no surrounding erythema or drainage Nontender, no guarding, rebound or rigidity Abdomen moving with respiration Normoactive bowel sounds No hepatomegaly, No splenomegaly No palpable mass No abdominal wall hernia noted Extremities: No digital cyanosis No clubbing Pedal pulses intact and symmetrical Radial pulses intact and symmetrical No calf tenderness Psychiatric: Alert and oriented to person, place and time Appropriate affect fair judgement Neuro Muscles Strength 5/5 in all 4 extremities Sensation to light touch grossly present throughout Cranial nerves II-XII grossly intact Lymphatics: no palpable cervical or supraclavicular lymph nodes Past Medical History Past Medical History: CVA/TIA, Hyperlipidemia, Hypertension, Renal Disease Additional Past Medical History / Comment(s): TIA, ESRD on periotneal dialysis, UTIs, dizziness, gout, arthiritis, back pain with UTIs. History of Any Multi-Drug Resistant Organisms: None Reported Past Surgical History: Section, Hysterectomy, Joint Replacement, Orthopedic Surgery Additional Past Surgical History / Comment(s): 3 C-Sections, hysterectomy with vaginal repair, bilateral total knees, R shoulder acromioplasty, excision distal clavicle rotator cuff repair, bilateral cataract removal with lens implants, L breast bx-benign, varicose vein stripping bilaterally, peritoneal HD cath Past Anesthesia/Blood Transfusion Reactions: No Reported Reaction Past Psychological History: No Psychological Hx Reported Additional Psychological History / Comment(s): Pt resides with her spouse. She is independent. She uses no assistive devices. She drives. Smoking Status: Never smoker Past Alcohol Use History: None Reported Past Drug Use History: None Reported - Past Family History Brother(s) Family Medical History: Renal Disease Father Family Medical History: Unable to Obtain Mother Family Medical History: Coronary Artery Disease (CAD), CVA/TIA Additional Family Medical History / Comment(s): Mother at 92 yrs of age. She had TIA's. Medications and Allergies Home Medications Medication Instructions Recorded Confirmed Type [place]-3 Fatty Acids/Fish Oil [Fish 1,000 mg PO BID 05/11/14 06/01/23 History Oil 1,000 mg Softgel] Omeprazole [PriLOSEC] 20 mg PO HS 05/11/14 06/01/23 History allopurinoL [Zyloprim] 100 mg PO BID 05/22/17 06/01/23 History atenoloL [Tenormin] 25 mg PO BID 05/22/17 06/01/23 History Ferrous Sulfate [Iron (65 MG 325 mg PO DAILY 11/03/21 06/01/23 History Elemental)] Sodium Bicarbonate Tab 650 mg PO BID 11/03/21 06/01/23 History hydrOXYzine HCL [Atarax] 10 mg PO DAILY 11/03/21 06/01/23 History Cholecalciferol [Vitamin D3 (25 25 mcg PO BID 09/15/22 06/01/23 History Mcg = 1000 Iu)] Rosuvastatin [Crestor] 20 mg PO HS 09/15/22 06/01/23 History Aspirin EC [Ecotrin] 325 mg PO DAILY 05/24/23 06/01/23 History Cranberry 4200mg 2 tab PO DAILY 05/24/23 06/01/23 History Estrogens, Conjugated Cream 1 applicator VAGINAL MOWEFR 05/24/23 06/01/23 History [Premarin Vaginal Cream] Liqua Martha Protein 1 dose PO BID 05/24/23 06/01/23 History calcitrioL [Calcitriol] 0.25 mcg PO MO 05/24/23 06/01/23 History hydrOXYzine HCL [Atarax] 20 mg PO HS 05/24/23 06/01/23 History Amoxic-Pot Clav 875-125Mg 1 tab PO Q12HR 14 Days #28 tab 05/30/23 06/01/23 Rx [Augmentin 875-125] Allergies Allergy/AdvReac Type Severity Reaction Status Date / Time levofloxacin [From Levaquin] Allergy Hallucinati Verified 06/01/23 21:45 ons losartan [Losartan] Allergy Unknown Verified 06/01/23 21:45 LUANA Inhibitors AdvReac Cough Verified 06/01/23 21:45 Physical Exam Vitals: Vital Signs Temp Pulse Pulse Resp BP BP Pulse Ox 06/02/23 01:58 97.6 F 61 18 106/70 96 06/02/23 01:10 61 18 06/01/23 22:54 65 18 108/62 96 06/01/23 20:46 71 18 113/76 95 06/01/23 20:12 79 18 90/61 95 06/01/23 15:02 99.3 F 78 16 100/67 94 L Intake and Output 06/01/23 06/01/23 06/02/23 14:59 22:59 06:59 Other: Voiding Method Toilet Weight 81.193 kg 81.193 kg Results CBC & Chem 7: 06/01/23 17:12 06/01/23 17:12 Labs: Abnormal Lab Results - Last 24 Hours (Table) 06/01/23 06/01/23 06/01/23 Range/Units 17:12 17:12 17:12 WBC 37.3 H (3.8-10.6) k/uL RBC 3.46 L (3.80-5.40) m/uL Hgb 10.8 L (11.4-16.0) gm/dL Hct 32.6 L (34.0-46.0) % RDW 15.7 H (11.5-15.5) % Neutrophils # 34.8 H (1.3-7.7) k/uL Lymphocytes # 0.5 L (1.0-4.8) k/uL Monocytes # 1.9 H (0-1.0) k/uL Sodium 134 L (137-145) mmol/L Carbon Dioxide 21 L (22-30) mmol/L BUN 36 H (7-17) mg/dL Creatinine 4.70 H (0.52-1.04) mg/dL Plasma Lactic Acid Narciso 2.9 H* (0.7-2.0) mmol/L AST 46 H (14-36) U/L Alkaline Phosphatase 154 H (38-126) U/L Total Protein 5.7 L (6.3-8.2) g/dL Albumin 2.5 L (3.5-5.0) g/dL Urine Appearance (Clear) Urine Protein (Negative) Urine Blood (Negative) Ur Leukocyte Esterase (Negative) Urine RBC (0-5) /hpf Urine WBC (0-5) /hpf Ur Squamous Epith Cells (0-4) /hpf Urine Bacteria (None) /hpf Urine Mucus (None) /hpf 06/01/23 06/01/23 Range/Units 18:44 18:44 WBC (3.8-10.6) k/uL RBC (3.80-5.40) m/uL Hgb (11.4-16.0) gm/dL Hct (34.0-46.0) % RDW (11.5-15.5) % Neutrophils # (1.3-7.7) k/uL Lymphocytes # (1.0-4.8) k/uL Monocytes # (0-1.0) k/uL Sodium (137-145) mmol/L Carbon Dioxide (22-30) mmol/L BUN (7-17) mg/dL Creatinine (0.52-1.04) mg/dL Plasma Lactic Acid Narciso 2.7 H* (0.7-2.0) mmol/L AST (14-36) U/L Alkaline Phosphatase (38-126) U/L Total Protein (6.3-8.2) g/dL Albumin (3.5-5.0) g/dL Urine Appearance Cloudy H (Clear) Urine Protein 2+ H (Negative) Urine Blood Small H (Negative) Ur Leukocyte Esterase Small H (Negative) Urine RBC 20 H (0-5) /hpf Urine WBC 13 H (0-5) /hpf Ur Squamous Epith Cells 9 H (0-4) /hpf Urine Bacteria Occasional H (None) /hpf Urine Mucus Rare H (None) /hpf Thrombosis Risk Factor Assmnt - Choose All That Apply Any of the Below Risk Factors Present?: Yes Each Factor Represents 1 point: Varicose veins Other Risk Factors: Yes Each Risk Factor Represents 3 Points: Age 75 years or older Thrombosis Risk Factor Assessment Total Risk Factor Score: 4 Thrombosis Risk Factor Assessment Level: Moderate Risk Assessment and Plan Assessment: 82 year old female with ESRD on PD, hypertension , coming in due to repeated nausea and vomiting, after being treated for UTI . she was hospitalized for 5 days and discharged on 05/30. I discussed the case with ED doc and I accepted the admission for refractory nausea and vomiting and UTI with anticipated length of stay < 2 midnights UTI repeated nausea and vomiting symptomatic control of nausea and vomiting follow up cultures rocephine IVPB daily tylenol for fever leukocytosis 37 all cultures from last hospital stay were negative ESRD on PD follow up nephrology recommendations renal function Na 134, K 3.7, BUN 36, Cr 4.7 hypertension , controlled atenolol full code DVT PPX heparin sc tid
[2023-06-02] MEDS: DIALYSIS (PERIT 1.5%) 2,000 ML 30 G/2,000 ML BAG INTRAPERIT SCH ×4 (05:52→23:50)
[2023-06-02] MEDS ORDERED: ASPIRIN 325 MG TAB PO SCH (09:00)
[2023-06-02] MEDS: atenoloL 25 MG TAB PO SCH ×2 (09:00→20:42)
[2023-06-02] MEDS: HEPARIN SODIUM,PORCINE 5,000 UNIT/ML 1 ML VIAL SQ SCH ×2 (09:00→15:14)
[2023-06-02] MEDS: SODIUM BICARBONATE TAB 650 MG TAB PO SCH ×2 (09:01→20:42)
[2023-06-02] MEDS: allopurinoL 100 MG TAB PO SCH ×2 (09:01→20:42)
--- NOTE | 2023-06-02 11:57 | P.NPCON ---
History of Present Illness - Reason for Consult end stage renal disease - History of Present Illness Reason for consultation: End-stage renal disease History of present illness: Patient is a 82-year-old female seen in renal consultation for end-stage renal disease. She is maintained on peritoneal dialysis. Patient denies any difficulties with peritoneal dialysis exchanges. No abdominal pain. States dialysate is clear. Patient was recently admitted at this facility and was treated for UTI and discharged on antibiotics. Patient developed vomiting diarrhea upon discharge and came back to the hospital. She denies fever or chills. No chest pain or shortness of breath. Blood pressure stable. On room air. Currently on clear liquid diet. She is awake and alert. No active complaints at this time. Vital signs are stable. General: No acute distress. HEENT: Head exam is unremarkable. LUNGS: No audible rhonchi or wheezes. HEART: Rate and Rhythm are regular. ABDOMEN: Nontender. EXTREMITITES: No edema. 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 History of Any Multi-Drug Resistant Organisms: None Reported Past Surgical History: Section, Hysterectomy, Joint Replacement, Ortho pedic Surgery Additional Past Surgical History / Comment(s): 3 C-Sections, hysterectomy with vaginal repair, bilateral total knees, R shoulder acromioplasty, excision distal clavicle rotator cuff repair, bilateral cataract removal with lens implants, L breast bx-benign, varicose vein stripping bilaterally, peritoneal HD cath Past Anesthesia/Blood Transfusion Reactions: No Reported Reaction Past Psychological History: No Psychological Hx Reported Additional Psychological History / Comment(s): Pt resides with her spouse. She is independent. She uses no assistive devices. She drives. Smoking Status: Never smoker Past Alcohol Use History: None Reported Past Drug Use History: None Reported - Past Family History Brother(s) Family Medical History: Renal Disease Father Family Medical History: Unable to Obtain Mother Family Medical History: Coronary Artery Disease (CAD), CVA/TIA Additional Family Medical History / Comment(s): Mother at 92 yrs of age. She had TIA's. Medications and Allergies Home Medications Medication Instructions Recorded Confirmed Type [place]-3 Fatty Acids/Fish Oil [Fish 1,000 mg PO BID 05/11/14 06/01/23 History Oil 1,000 mg Softgel] Omeprazole [PriLOSEC] 20 mg PO HS 05/11/14 06/01/23 History allopurinoL [Zyloprim] 100 mg PO BID 05/22/17 06/01/23 History atenoloL [Tenormin] 25 mg PO BID 05/22/17 06/01/23 History Ferrous Sulfate [Iron (65 MG 325 mg PO DAILY 11/03/21 06/01/23 History Elemental)] Sodium Bicarbonate Tab 650 mg PO BID 11/03/21 06/01/23 History hydrOXYzine HCL [Atarax] 10 mg PO DAILY 11/03/21 06/01/23 History Cholecalciferol [Vitamin D3 (25 25 mcg PO BID 09/15/22 06/01/23 History Mcg = 1000 Iu)] Rosuvastatin [Crestor] 20 mg PO HS 09/15/22 06/01/23 History Aspirin EC [Ecotrin] 325 mg PO DAILY 05/24/23 06/01/23 History Cranberry 4200mg 2 tab PO DAILY 05/24/23 06/01/23 History Estrogens, Conjugated Cream 1 applicator VAGINAL MOWEFR 05/24/23 06/01/23 History [Premarin Vaginal Cream] Liqua Martha Protein 1 dose PO BID 05/24/23 06/01/23 History calcitrioL [Calcitriol] 0.25 mcg PO MO 05/24/23 06/01/23 History hydrOXYzine HCL [Atarax] 20 mg PO HS 05/24/23 06/01/23 History Amoxic-Pot Clav 875-125Mg 1 tab PO Q12HR 14 Days #28 tab 05/30/23 06/01/23 Rx [Augmentin 875-125] Allergies Allergy/AdvReac Type Severity Reaction Status Date / Time levofloxacin [From Levaquin] Allergy Hallucinati Verified 06/01/23 21:45 ons losartan [Losartan] Allergy Unknown Verified 06/01/23 21:45 LUANA Inhibitors AdvReac Cough Verified 06/01/23 21:45 Physical Exam Vitals: Vital Signs Temp Pulse Pulse Resp BP BP BP 06/02/23 07:25 97.5 F L 60 16 118/80 06/02/23 06:00 97.5 F L 65 16 120/65 06/02/23 01:58 97.6 F 61 18 106/70 06/02/23 01:10 61 18 06/01/23 22:54 65 18 108/62 06/01/23 20:46 71 18 113/76 06/01/23 20:12 79 18 90/61 06/01/23 15:02 99.3 F 78 16 100/67 Pulse Ox 06/02/23 07:25 96 06/02/23 06:00 91 L 06/02/23 01:58 96 06/02/23 01:10 06/01/23 22:54 96 06/01/23 20:46 95 06/01/23 20:12 95 06/01/23 15:02 94 L Intake and Output 06/01/23 06/02/23 06/02/23 22:59 06:59 14:59 Intake Total 200 Balance 200 Intake: Oral 200 Other: Voiding Method Toilet Toilet # Voids 1 # Bowel Movements 1 Weight 81.193 kg 81.193 kg Results - Lab Results Most recent lab results Calcium 8.7 mg/dL (8.4-10.2) 06/01/23 17:12 06/01/23 17:12 06/01/23 17:12 Assessment and Plan Plan: Assessment: 1. End-stage renal disease maintained on peritoneal dialysis. 2. UTI maintained on antibiotics. 3. Chronic kidney disease mineral bone disease maintained on calcitriol. 4. Metabolic acidosis secondary to chronic kidney disease maintained on oral bicarbonate. Plan: Maintain current PD exchanges. Check phosphorus level. Check dialysate for cell count culture and Gram stain. Follow-up cultures. Thank you for the consultation. I will continue to follow the patient with you during her hospital stay.
--- NOTE | 2023-06-02 15:09 | P.PN ---
Subjective Progress Note Date: 06/02/23 Hospital Course: 82-year-old female with history of ESRD on peritoneal dialysis, hypertension, gout presenting with nausea and vomiting. Vital signs have been within normal limits. WBC 37.3, hemoglobin 10.8, creatinine 4.7. Lactate 2.9. Abdomen CT from last admission didn't show polycystic kidneys with possible left renal cortex abscess or emphysematous pyelonephritis. Patient was discharged on 05/30 on oral antibiotics. She was unable to take medications at home. He presented back to the hospital. Patient admitted for sepsis. ID and nephrology consulted. Subjective: Seen and examined at bedside. No acute events overnight. He claims that nausea or vomiting improved. Pertinent positives and negatives as discussed above, a complete review of systems was performed and all other systems are negative. Vitals Signs Reviewed. General: nontoxic, no distress, appears at stated age Derm: warm, dry, PD catheter in place Head: atraumatic, normocephalic, symmetric Eyes: EOMI, no lid lag, anicteric sclera Mouth: no lip lesion, mucus membranes moist Cardiovascular: S1S2 reg, no murmur Lungs: CTA bilateral, no rhonchi, no rales , no accessory muscle use Abdominal: soft, nontender to palpation, no guarding, no appreciable organomegaly Ext: no gross muscle atrophy, no edema, no contractures Neuro: CN II-XI grossly intact, no focal neuro deficits Psych: Alert, oriented, appropriate affect Data Reviewed Today: Pertinent Labs: Phosphorus 5, lactic acid 1.8 Imaging: No new imaging Assessment and Plan: Active: Severe leukocytosis Suspected left renal cortical abscess/polynephritis -Discussed management with ID, continue patient on Rocephin 2 g IV every 24 hours -IR consulted for possible drainage -Repeat CBC and BMP tomorrow ESRD on peritoneal dialysis -Nephrology note reviewed, peritoneal dialysate sent for cultures and cell count Resolved: Lactic acidosis Chronic: Hypertension Dyslipidemia Gout DVT ppx: Subcu heparin Code status: Full code Anticipated discharge place: Pending clinical course Anticipated discharge time: Pending clinical course Objective - Vital Signs Vital signs: Vital Signs Temp 97.9 F 06/02/23 12:47 Pulse 65 06/02/23 12:47 Resp 20 06/02/23 12:47 BP 121/77 06/02/23 12:47 Pulse Ox 96 06/02/23 12:47 FiO2 Intake & Output 06/01/23 06/02/23 06/02/23 18:59 06:59 18:59 Intake Total 200 Balance 200 Weight 81.193 kg 81.193 kg Intake: Oral 200 Other: Voiding Method Toilet Toilet # Voids 1 # Bowel Movements 1 - Labs CBC & Chem 7: 06/01/23 17:12 06/01/23 17:12 Labs: Abnormal Lab Results - Last 24 Hours (Table) 06/01/23 06/01/23 06/01/23 Range/Units 17:12 17:12 17:12 WBC 37.3 H (3.8-10.6) k/uL RBC 3.46 L (3.80-5.40) m/uL Hgb 10.8 L (11.4-16.0) gm/dL Hct 32.6 L (34.0-46.0) % RDW 15.7 H (11.5-15.5) % Neutrophils # 34.8 H (1.3-7.7) k/uL Lymphocytes # 0.5 L (1.0-4.8) k/uL Monocytes # 1.9 H (0-1.0) k/uL Sodium 134 L (137-145) mmol/L Carbon Dioxide 21 L (22-30) mmol/L BUN 36 H (7-17) mg/dL Creatinine 4.70 H (0.52-1.04) mg/dL Plasma Lactic Acid Narciso 2.9 H* (0.7-2.0) mmol/L Phosphorus (2.5-4.5) mg/dL AST 46 H (14-36) U/L Alkaline Phosphatase 154 H (38-126) U/L Total Protein 5.7 L (6.3-8.2) g/dL Albumin 2.5 L (3.5-5.0) g/dL Urine Appearance (Clear) Urine Protein (Negative) Urine Blood (Negative) Ur Leukocyte Esterase (Negative) Urine RBC (0-5) /hpf Urine WBC (0-5) /hpf Ur Squamous Epith Cells (0-4) /hpf Urine Bacteria (None) /hpf Urine Mucus (None) /hpf 06/01/23 06/01/23 06/02/23 Range/Units 18:44 18:44 12:06 WBC (3.8-10.6) k/uL RBC (3.80-5.40) m/uL Hgb (11.4-16.0) gm/dL Hct (34.0-46.0) % RDW (11.5-15.5) % Neutrophils # (1.3-7.7) k/uL Lymphocytes # (1.0-4.8) k/uL Monocytes # (0-1.0) k/uL Sodium (137-145) mmol/L Carbon Dioxide (22-30) mmol/L BUN (7-17) mg/dL Creatinine (0.52-1.04) mg/dL Plasma Lactic Acid Narciso 2.7 H* (0.7-2.0) mmol/L Phosphorus 5.0 H (2.5-4.5) mg/dL AST (14-36) U/L Alkaline Phosphatase (38-126) U/L Total Protein (6.3-8.2) g/dL Albumin (3.5-5.0) g/dL Urine Appearance Cloudy H (Clear) Urine Protein 2+ H (Negative) Urine Blood Small H (Negative) Ur Leukocyte Esterase Small H (Negative) Urine RBC 20 H (0-5) /hpf Urine WBC 13 H (0-5) /hpf Ur Squamous Epith Cells 9 H (0-4) /hpf Urine Bacteria Occasional H (None) /hpf Urine Mucus Rare H (None) /hpf
[2023-06-02] MEDS: CHOLECALCIFEROL 25 MCG (1000 IU) TABLET PO SCH (20:42)
[2023-06-02] MEDS: hydrOXYzine HCL 10 MG TAB PO SCH (20:42)
[2023-06-02] MEDS: PANTOPRAZOLE 40 MG TABLET PO SCH (20:42)
[2023-06-02] MEDS: ATORVASTATIN 40 MG TAB PO SCH (20:42)
[2023-06-02] MEDS ORDERED: NON FORMULARY DRUG (Omega-3 Fatty Acids/Fish Oil [Fish Oil 1,000 Mg Softgel] 1 EACH Capsul PO SCH (21:00)
--- NOTE | 2023-06-02 22:56 | P.CONS ---
History of Present Illness - Reason for Consult Consult date: 06/02/23 Urinary tract infection, failed outpatient Requesting physician: Timoteo Ybarra - Chief Complaint Vomiting unable to keep anything down x few days - History of Present Illness Patient is a 82-year-old female with a past medical history [place] for hypertension hyperlipidemia end-stage renal disease on peritoneal dialysis CVA TIA patient was recently admitted at this facility and there was concern for possible left renal abscess versus emphysematous pyelitis patient was treated with Zosyn however repeat CT was reported negative for any abscess patient antib iotic was switched over to oral Augmentin and the patient was discharged home the patient now presenting back to the hospital concerning for intractable nausea and vomiting unable to keep anything down patient denies having any abdominal pain and denies having any diarrhea and no high-grade fever on presentation to the hospital patient did have low-grade fever of 99.3 degrees following right patient was not tachycardic or hypotensive and not hypoxic she did have elevated white count of 37.3 lactic acid was elevated did have elevated BUN/creatinine urine was positive for patient was started on ceftriaxone infectious was consulted for further management of antibiotic therapy Review of Systems Positive point and negatives has been mentioned in the HPI, complete review of systems was performed and all other systems are negative Past Medical History Past Medical History: CVA/TIA, Hyperlipidemia, Hypertension, Renal Disease Additional Past Medical History / Comment(s): TIA, ESRD on periotneal dialysis, UTIs, dizziness, gout, arthiritis, back pain with UTIs. History of Any Multi-Drug Resistant Organisms: None Reported Past Surgical History: Section, Hysterectomy, Joint Replacement, Orthopedic Surgery Additional Past Surgical History / Comment(s): 3 C-Sections, hysterectomy with vaginal repair, bilateral total knees, R shoulder acromioplasty, excision distal clavicle rotator cuff repair, bilateral cataract removal with lens implants, L breast bx-benign, varicose vein stripping bilaterally, peritoneal HD cath Past Anesthesia/Blood Transfusion Reactions: No Reported Reaction Past Psychological History: No Psychological Hx Reported Additional Psychological History / Comment(s): Pt resides with her spouse. She is independent. She uses no assistive devices. She drives. Smoking Status: Never smoker Past Alcohol Use History: None Reported Past Drug Use History: None Reported - Past Family History Brother(s) Family Medical History: Renal Disease Father Family Medical History: Unable to Obtain Mother Family Medical History: Coronary Artery Disease (CAD), CVA/TIA Additional Family Medical History / Comment(s): Mother at 92 yrs of age. She had TIA's. Medications and Allergies Home Medications Medication Instructions Recorded Confirmed Type [place]-3 Fatty Acids/Fish Oil [Fish 1,000 mg PO BID 05/11/14 06/01/23 History Oil 1,000 mg Softgel] Omeprazole [PriLOSEC] 20 mg PO HS 05/11/14 06/01/23 History allopurinoL [Zyloprim] 100 mg PO BID 05/22/17 06/01/23 History atenoloL [Tenormin] 25 mg PO BID 05/22/17 06/01/23 History Ferrous Sulfate [Iron (65 MG 325 mg PO DAILY 11/03/21 06/01/23 History Elemental)] Sodium Bicarbonate Tab 650 mg PO BID 11/03/21 06/01/23 History hydrOXYzine HCL [Atarax] 10 mg PO DAILY 11/03/21 06/01/23 History Cholecalciferol [Vitamin D3 (25 25 mcg PO BID 09/15/22 06/01/23 History Mcg = 1000 Iu)] Rosuvastatin [Crestor] 20 mg PO HS 09/15/22 06/01/23 History Aspirin EC [Ecotrin] 325 mg PO DAILY 05/24/23 06/01/23 History Cranberry 4200mg 2 tab PO DAILY 05/24/23 06/01/23 History Estrogens, Conjugated Cream 1 applicator VAGINAL MOWEFR 05/24/23 06/01/23 History [Premarin Vaginal Cream] Liqua Martha Protein 1 dose PO BID 05/24/23 06/01/23 History calcitrioL [Calcitriol] 0.25 mcg PO MO 05/24/23 06/01/23 History hydrOXYzine HCL [Atarax] 20 mg PO HS 05/24/23 06/01/23 History cefTRIAXone [Rocephin] 2,000 mg IVP Q24HR #21 each 06/09/23 Rx Allergies Allergy/AdvReac Type Severity Reaction Status Date / Time levofloxacin [From Levaquin] Allergy Hallucinati Verified 06/01/23 21:45 ons losartan [Losartan] Allergy Unknown Verified 06/01/23 21:45 LUANA Inhibitors AdvReac Cough Verified 06/01/23 21:45 Physical Exam Vitals: Vital Signs Temp Pulse Pulse Resp BP BP BP 06/02/23 07:25 97.5 F L 60 16 118/80 06/02/23 06:00 97.5 F L 65 16 120/65 06/02/23 01:58 97.6 F 61 18 106/70 06/02/23 01:10 61 18 06/01/23 22:54 65 18 108/62 06/01/23 20:46 71 18 113/76 06/01/23 20:12 79 18 90/61 06/01/23 15:02 99.3 F 78 16 100/67 Pulse Ox 06/02/23 07:25 96 06/02/23 06:00 91 L 06/02/23 01:58 96 06/02/23 01:10 06/01/23 22:54 96 06/01/23 20:46 95 06/01/23 20:12 95 06/01/23 15:02 94 L Intake and Output 06/01/23 06/02/23 06/02/23 22:59 06:59 14:59 Intake Total 200 Balance 200 Intake: Oral 200 Other: Voiding Method Toilet # Voids 1 # Bowel Movements 1 Weight 81.193 kg 81.193 kg GENERAL DESCRIPTION: Elderly female lying in bed, no distress. No tachypnea or accessory muscle of respiration use. HEENT: Shows Pallor , no scleral icterus. Oral mucous membrane is dry. No pharyngeal erythema or thrush NECK: Trachea central, no thyromegaly. LUNGS: Unlabored breathing. Clear to auscultation anteriorly. No wheeze or crackle. HEART: S1, S2, regular rate and rhythm. No loud murmur ABDOMEN: Soft, no tenderness , guarding or rigidity, no organomegaly EXTREMITIES: No edema of feet. SKIN: No rash, no masses palpable. NEUROLOGICAL: The patient is awake, alert, oriented x3, mood and affect normal. Results CBC & Chem 7: 06/09/23 05:52 06/09/23 05:52 Labs: Abnormal Lab Results - Last 24 Hours (Table) 06/01/23 06/01/23 06/01/23 Range/Units 17:12 17:12 17:12 WBC 37.3 H (3.8-10.6) k/uL RBC 3.46 L (3.80-5.40) m/uL Hgb 10.8 L (11.4-16.0) gm/dL Hct 32.6 L (34.0-46.0) % RDW 15.7 H (11.5-15.5) % Neutrophils # 34.8 H (1.3-7.7) k/uL Lymphocytes # 0.5 L (1.0-4.8) k/uL Monocytes # 1.9 H (0-1.0) k/uL Sodium 134 L (137-145) mmol/L Carbon Dioxide 21 L (22-30) mmol/L BUN 36 H (7-17) mg/dL Creatinine 4.70 H (0.52-1.04) mg/dL Plasma Lactic Acid Narciso 2.9 H* (0.7-2.0) mmol/L AST 46 H (14-36) U/L Alkaline Phosphatase 154 H (38-126) U/L Total Protein 5.7 L (6.3-8.2) g/dL Albumin 2.5 L (3.5-5.0) g/dL Urine Appearance (Clear) Urine Protein (Negative) Urine Blood (Negative) Ur Leukocyte Esterase (Negative) Urine RBC (0-5) /hpf Urine WBC (0-5) /hpf Ur Squamous Epith Cells (0-4) /hpf Urine Bacteria (None) /hpf Urine Mucus (None) /hpf 06/01/23 06/01/23 Range/Units 18:44 18:44 WBC (3.8-10.6) k/uL RBC (3.80-5.40) m/uL Hgb (11.4-16.0) gm/dL Hct (34.0-46.0) % RDW (11.5-15.5) % Neutrophils # (1.3-7.7) k/uL Lymphocytes # (1.0-4.8) k/uL Monocytes # (0-1.0) k/uL Sodium (137-145) mmol/L Carbon Dioxide (22-30) mmol/L BUN (7-17) mg/dL Creatinine (0.52-1.04) mg/dL Plasma Lactic Acid Narciso 2.7 H* (0.7-2.0) mmol/L AST (14-36) U/L Alkaline Phosphatase (38-126) U/L Total Protein (6.3-8.2) g/dL Albumin (3.5-5.0) g/dL Urine Appearance Cloudy H (Clear) Urine Protein 2+ H (Negative) Urine Blood Small H (Negative) Ur Leukocyte Esterase Small H (Negative) Urine RBC 20 H (0-5) /hpf Urine WBC 13 H (0-5) /hpf Ur Squamous Epith Cells 9 H (0-4) /hpf Urine Bacteria Occasional H (None) /hpf Urine Mucus Rare H (None) /hpf Assessment and Plan (1) Leukocytosis Current Visit: Yes Status: Acute Code(s): D72.829 - ELEVATED WHITE BLOOD CELL COUNT, UNSPECIFIED SNOMED Code(s): 924285464 (2) Urinary tract infection Current Visit: Yes Status: Acute Code(s): N39.0 - URINARY TRACT INFECTION, SITE NOT SPECIFIED SNOMED Code(s): 42448737 Plan: 1patient is 82-year-old female presenting to the hospital with intractable nausea and vomiting in this patient who was recently admitted to this facility from 05/25/2023 till 05/30/2023 at that point the patient did have a negative urine culture peritoneal fluid was negative blood culture negative there was initial concern for possible left-sided emphysematous pyelitis versus renal abscess repeat CT was reported negative now presenting back to the [facility] with intractable vomiting questionable related to the left kidney infection versus PD catheter associated peritonitis 2-await peritoneal fluid cell count differential and culture 3-Will benefit from IR evaluation and possible aspirate of the left kidney to make sure no evidence of any abscess this was discussed with admitting team 4-continue with Rocephin 2 g daily We will follow on clinical condition and cultures to further adjust medication if needed Thank you for this consultation we will follow the patient along with you Dictation was produced using [employer] dictation software. please excuse any grammatical, word or spelling errors. Time with Patient: Greater than 30
[2023-06-03] MEDS: HEPARIN SODIUM,PORCINE 5,000 UNIT/ML 1 ML VIAL SQ SCH ×2 (00:41→08:12)
[2023-06-03 02:28] LABS: Appearance,BF Clear (Clear)
[2023-06-03] MEDS: DIALYSIS (PERIT 1.5%) 2,000 ML 30 G/2,000 ML BAG INTRAPERIT SCH ×2 (05:56→12:43)
[2023-06-03 06:03] LABS: INR 1.1 (<1.2); Prothrombin Time 11.6 sec (10.0-12.5)
[2023-06-03] MEDS: atenoloL 25 MG TAB PO SCH (08:11)
[2023-06-03] MEDS: SODIUM BICARBONATE TAB 650 MG TAB PO SCH ×2 (08:11→22:39)
[2023-06-03] MEDS: allopurinoL 100 MG TAB PO SCH ×2 (08:11→22:39)
[2023-06-03] MEDS: FERROUS SULFATE 325 MG TAB PO SCH (08:12)
[2023-06-03] MEDS: CHOLECALCIFEROL 25 MCG (1000 IU) TABLET PO SCH ×2 (08:12→22:40)
[2023-06-03] MEDS: hydrOXYzine HCL 10 MG TAB PO SCH ×2 (08:31→22:39)
[2023-06-03 08:46] LABS: BUN/Creat Ratio 7.53 Ratio (12.00-20.00); Blood Urea Nitrogen 35.4 mg/dL (9.0-27.0); Calcium 8.6 mg/dL (8.7-10.3); Chloride 98 mmol/L (96-109); Glucose 81 mg/dL (70-110); Magnesium 1.5 mg/dL (1.5-2.4); Potassium 4.1 mmol/L (3.5-5.5); Sodium 134 mmol/L (135-145)
[2023-06-03 08:52] LABS: Basophils # (A) 0.08 X 10*3/uL (0.00-0.10); Basophils % (A) 0.4 %; Eosinophils % (A) 0.5 %; HCT 28.5 % (37.2-46.3); HGB 9.4 d/dL (12.0-15.0); Lymphocytes # (A) 1.79 X 10*3/uL (0.90-5.00); Lymphocytes % (A) 8.2 %; MCV 91.1 FL (80.0-97.0); Mean Platelet Volume 10.6 FL (9.5-12.2); Monocytes # (A) 1.75 X 10*3/uL (0.20-1.00); NRBC Per 100 WBC 0 X 10*3/uL (0.00-0.01); Neutrophils # (A) 17.81 X 10*3/uL (1.80-7.70); Neutrophils % (A) 81.7 %; Platelet Count 397 X 10*3/uL (140-440); RBC 3.13 X 10*6/uL (4.10-5.20)
[2023-06-03] MEDS ORDERED: METOPROLOL TARTRATE 25 MG TAB PO SCH (10:00)
--- NOTE | 2023-06-03 11:51 | P.PN ---
Subjective Patient is seen in follow-up for end-stage renal disease. She is maintained on peritoneal dialysis. No problems with PD exchanges. Dialysate clear. Oral intake fair. No active complaints. Vital signs are stable. General: No acute distress. HEENT: Head exam is unremarkable. LUNGS: No audible rhonchi or wheezes. HEART: Rate and Rhythm are regular. ABDOMEN: Nontender. EXTREMITITES: No edema. Objective - Vital Signs Vital signs: Vital Signs Temp 98.4 F 06/03/23 07:12 Pulse 135 H 06/03/23 08:11 Resp 16 06/03/23 07:12 BP 125/91 06/03/23 08:11 Pulse Ox 94 L 06/03/23 08:11 FiO2 Intake & Output 06/02/23 06/03/23 06/03/23 18:59 06:59 18:59 Intake Total 590 Balance 590 Intake: Oral 590 Other: Voiding Method Toilet Toilet Toilet # Voids 1 # Bowel Movements 1 - Labs CBC & Chem 7: 06/03/23 04:23 06/03/23 04:23 Labs: Abnormal Lab Results - Last 24 Hours (Table) 06/02/23 06/03/23 06/03/23 Range/Units 12:06 04:23 04:23 WBC 21.80 H (4.50-10.00) X 10*3/uL RBC 3.13 L (4.10-5.20) X 10*6/uL Hgb 9.4 L (12.0-15.0) d/dL Hct 28.5 L (37.2-46.3) % RDW 16.0 H (11.5-14.5) % Neutrophils # 17.81 H (1.80-7.70) X 10*3/uL Monocytes # 1.75 H (0.20-1.00) X 10*3/uL Sodium 134 L (135-145) mmol/L Anion Gap 13.00 H (4.00-12.00) mmol/L BUN 35.4 H (9.0-27.0) mg/dL Creatinine 4.7 H (0.6-1.5) mg/dL Est GFR (CKD-EPI) 9 L (>=60) BUN/Creatinine Ratio 7.53 L (12.00-20.00) Ratio Calcium 8.6 L (8.7-10.3) mg/dL Phosphorus 5.0 H (2.5-4.5) mg/dL Microbiology - Last 24 Hours (Table) 06/01/23 18:50 Blood Culture - Preliminary Blood 06/01/23 18:35 Blood Culture - Preliminary Blood Assessment and Plan Plan: Assessment: 1. End-stage renal disease maintained on peritoneal dialysis. 2. UTI maintained on antibiotics. Questionable renal abscess. May need to be drained. ID following. Dialysate WBC count 13. 3. Chronic kidney disease mineral bone disease maintained on calcitriol. Phosphorus level 5.0 dated 06/02/2023. 4. Metabolic acidosis secondary to chronic kidney disease maintained on oral bicarbonate. 5. Anemia of chronic kidney disease. 6. Hypomagnesemia from poor intake. Plan: Maintain current PD exchanges. Check iron studies. Replace magnesium. Add PhosLo with meals.
[2023-06-03] MEDS: CALCIUM ACETATE 667 MG TAB PO SCH ×2 (13:12→17:45)
[2023-06-03] MEDS: MAGNESIUM SULFATE-D5W PMX 1 GM in DEXTROSE/WATER 1 100ML.BAG IVPB SCH ×2 (13:12→14:30)
--- NOTE | 2023-06-03 13:18 | P.PN ---
Subjective Progress Note Date: 06/03/23 Hospital Course: 82-year-old female with history of ESRD on peritoneal dialysis, hypertension, gout presenting with nausea and vomiting. Vital signs have been within normal limits. WBC 37.3, hemoglobin 10.8, creatinine 4.7. Lactate 2.9. Abdomen CT from last admission didn't show polycystic kidneys with possible left renal cortex abscess or emphysematous pyelonephritis. Patient was discharged on 05/30 on oral antibiotics. She was unable to take medications at home. She presented back to the hospital. Patient admitted for sepsis. ID and nephrology consulted. I had consulted for possible drainage of left renal cortical abscess. No other obvious source of infection. Patient also went into atrial flutter with RVR. Cardiology consulted. Subjective: Seen and examined at bedside. This morning, patient went into atrial flutter with RVR. Currently asymptomatic. Pertinent positives and negatives as discussed above, a complete review of systems was performed and all other systems are negative. Vitals Signs Reviewed. General: nontoxic, no distress, appears at stated age Derm: warm, dry, PD catheter in place Head: atraumatic, normocephalic, symmetric Eyes: EOMI, no lid lag, anicteric sclera Mouth: no lip lesion, mucus membranes moist Cardiovascular: S1S2 irregular, tachycardic, no murmur Lungs: CTA bilateral, no rhonchi, no rales , no accessory muscle use Abdominal: soft, nontender to palpation, no guarding, no appreciable organomegaly Ext: no gross muscle atrophy, no edema, no contractures Neuro: CN II-XI grossly intact, no focal neuro deficits Psych: Alert, oriented, appropriate affect Data Reviewed Today: Pertinent Labs: WBC 21.8, hemoglobin 9.4, sodium 134, creatinine 4.7, magnesium 1.5, peritoneal fluid showed WBC 13 Imaging: No new imaging Assessment and Plan: Active: Sepsis, unclear source Suspected left renal cortical abscess/polynephritis -ID following, continue patient on Rocephin 2 g IV every 24 hours -IR consulted for possible drainage, unable to 200 for 5 days as patient was on aspirin, aspirin currently on -Repeat CBC and BMP tomorrow ESRD on peritoneal dialysis -Discussed plan with nephrology, continue peritoneal dialysis -No signs of peritonitis Atrial flutter with RVR -Atenolol discontinued, started on metoprolol tartrate 25 3 times a day -Hemodynamically stable -Cardiology consulted -TSH pending Hypomagnesemia -2 g IV magnesium sulfate -Repeat magnesium levels tomorrow Resolved: Lactic acidosis Chronic: Hypertension Dyslipidemia Gout DVT ppx: Subcu heparin Code status: Full code Anticipated discharge place: Pending clinical course Anticipated discharge time: Pending clinical course Objective - Vital Signs Vital signs: Vital Signs Temp 98 F 06/03/23 12:31 Pulse 73 06/03/23 12:31 Resp 18 06/03/23 12:31 BP 133/85 06/03/23 12:31 Pulse Ox 95 06/03/23 12:31 FiO2 Intake & Output 06/02/23 06/03/23 06/03/23 18:59 06:59 18:59 Intake Total 590 Balance 590 Intake: Oral 590 Other: Voiding Method Toilet Toilet Toilet # Voids 1 # Bowel Movements 1 - Labs CBC & Chem 7: 06/03/23 04:23 06/03/23 04:23 Labs: Abnormal Lab Results - Last 24 Hours (Table) 06/03/23 06/03/23 Range/Units 04:23 04:23 WBC 21.80 H (4.50-10.00) X 10*3/uL RBC 3.13 L (4.10-5.20) X 10*6/uL Hgb 9.4 L (12.0-15.0) d/dL Hct 28.5 L (37.2-46.3) % RDW 16.0 H (11.5-14.5) % Neutrophils # 17.81 H (1.80-7.70) X 10*3/uL Monocytes # 1.75 H (0.20-1.00) X 10*3/uL Sodium 134 L (135-145) mmol/L Anion Gap 13.00 H (4.00-12.00) mmol/L BUN 35.4 H (9.0-27.0) mg/dL Creatinine 4.7 H (0.6-1.5) mg/dL Est GFR (CKD-EPI) 9 L (>=60) BUN/Creatinine Ratio 7.53 L (12.00-20.00) Ratio Calcium 8.6 L (8.7-10.3) mg/dL Microbiology - Last 24 Hours (Table) 06/01/23 18:50 Blood Culture - Preliminary Blood 06/01/23 18:35 Blood Culture - Preliminary Blood
--- NOTE | 2023-06-03 14:13 | P.CRDCN ---
History of Present Illness Consult date: 06/03/23 Consult reason: atrial fibrillation (With RVR) History of present illness: History of present illness: This is an 82 year old female patient of Dr. Roca with past medical history of hypertension, dyslipidemia, history of TIA, end-stage renal disease on peritoneal dialysis, valvular heart disease with aortic, mitral regurgitation and tricuspid regurgitation. We have been asked to evaluate the patient for A. fib with RVR. Patient presented to the emergency room on 06/01 with nausea and vomiting and treated for suspected left renal cortical abscess versus PD catheter associated peritonitis. Patient denies any previous history of atrial fibrillation. She does recall feeling palpitations earlier when she had the episode of A. fib. She has not felt palpitations like this in the past. She did get sweaty with this and a little dizzy. No syncopal episode. She denies having any chest pain and no shortness of breath and no dizziness at this time. She states she is normally active at home. She does not have shortness of breath or chest pain with activity. No PND. No blood in her stools. She did have nausea earlier which is improved. No abdominal pain. She does have a dry cough. She is a nonsmoker. EKG atrial fibrillation, telemetry sinus rhythm WBC 21.8, hemoglobin 9.4, platelet count 397. INR 1.1. Sodium 134, potassium 4.1, BUN 35 creatinine 4.7. Magnesium 1.5. Phosphorus 5, calcium 8.6. Home cardiac medications: Aspirin 325 mg daily, atenolol 25 mg twice daily, para sulfate 325 mg daily, Crestor 20 g at bedtime. Echocardiogram performed in the office 05/2020 revealed EF 60%, moderate left ventricular hypertrophy. Mild aortic regurgitation, moderate mitral regurgitation, [id number] tricuspid regurgitation. Normal pulmonary artery systolic pressure. Lexiscan stress test 05/2020 revealed Negative stress test. Review Of Systems: At the time of my evaluation: Constitutional: No fever, no chills. No weakness, fatigue or lethargy. EENT: No headache. No dizziness. Lungs: No shortness of breath, cough, no sputum production. No wheezing. Cardiovascular: No chest pain, no lower extremity edema. No palpitations. No paroxysmal nocturnal dyspnea. No orthopnea. No lightheadedness or dizziness. No syncopal episodes. Abdominal: No abdominal pain. No nausea, vomiting. No diarrhea. No const ipation. No bloody or tarry stools. Genitourinary: No dysuria.. No urinary retention. Musculoskeletal: No myalgias. No muscle weakness, no frequent falls. No back pain. No neck pain. Integumentary: No wounds. No rash. No unusual bruising. Neurologic: No aphasia. No facial droop. No change in mentation. No head injury. No headache. Physical examination: Gen: This is an 82-year-old female resting bed and appears to be comfortable and in no acute distress VS: reviewed HEENT: Head is atraumatic, normocephalic. Pupils equal, round. Sclerae is anicteric. NECK: Supple. No JVD. LUNGS: Clear to auscultation. No wheezes or rhonchi. No intercostal retractions. HEART: Regular rate and rhythm. Systolic murmur. ABDOMEN: Soft No tenderness. EXTREMITIES: No pedal edema. No calf tenderness. NEUROLOGICAL: Patient is awake, alert and oriented x3. Assessment: Paroxysmal atrial fibrillation with RVR, converted to sinus rhythm Renal abscess versus peritonitis on antibiotics and followed by ID Hypertension Dyslipidemia History of TIA End-stage renal disease on peritoneal dialysis Valvular heart disease with aortic, mitral and tricuspid regurgitation Plan: Resume patient's home cardiac medications Noted that atenolol was changed to Lopressor 25 mg 3 times daily. We will increase Lopressor to 50 mg twice daily Add eliquis 2.5 mg twice daily Obtain TSH and obtain a repeat BMP in the morning Obtain 2-D echocardiogram and Doppler study to assess cardiac structure and fu nction Further recommendations to follow based upon clinical course Thank you kindly for this consultation. Nurse practitioner note has been reviewed, I agree with documented findings and plan of care. Patient was seen and examined. 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 History of Any Multi-Drug Resistant Organisms: None Reported Past Surgical History: Section, Hysterectomy, Joint Replacement, Orthopedic Surgery Additional Past Surgical History / Comment(s): 3 C-Sections, hysterectomy with vaginal repair, bilateral total knees, R shoulder acromioplasty, excision distal clavicle rotator cuff repair, bilateral cataract removal with lens implants, L breast bx-benign, varicose vein stripping bilaterally, peritoneal HD cath Past Anesthesia/Blood Transfusion Reactions: No Reported Reaction Past Psychological History: No Psychological Hx Reported Additional Psychological History / Comment(s): Pt resides with her spouse. She is independent. She uses no assistive devices. She drives. Smoking Status: Never smoker Past Alcohol Use History: None Reported Past Drug Use History: None Reported - Past Family History Brother(s) Family Medical History: Renal Disease Father Family Medical History: Unable to Obtain Mother Family Medical History: Coronary Artery Disease (CAD), CVA/TIA Additional Family Medical History / Comment(s): Mother at 92 yrs of age. She had TIA's. Medications and Allergies Home Medications Medication Instructions Recorded Confirmed Type Mcdougal-3 Fatty Acids/Fish Oil [Fish 1,000 mg PO BID 05/11/14 06/01/23 History Oil 1,000 mg Softgel] Omeprazole [PriLOSEC] 20 mg PO HS 05/11/14 06/01/23 History allopurinoL [Zyloprim] 100 mg PO BID 05/22/17 06/01/23 History atenoloL [Tenormin] 25 mg PO BID 05/22/17 06/01/23 History Ferrous Sulfate [Iron (65 MG 325 mg PO DAILY 11/03/21 06/01/23 History Elemental)] Sodium Bicarbonate Tab 650 mg PO BID 11/03/21 06/01/23 History hydrOXYzine HCL [Atarax] 10 mg PO DAILY 11/03/21 06/01/23 History Cholecalciferol [Vitamin D3 (25 25 mcg PO BID 09/15/22 06/01/23 History Mcg = 1000 Iu)] Rosuvastatin [Crestor] 20 mg PO HS 09/15/22 06/01/23 History Aspirin EC [Ecotrin] 325 mg PO DAILY 05/24/23 06/01/23 History Cranberry 4200mg 2 tab PO DAILY 05/24/23 06/01/23 History Estrogens, Conjugated Cream 1 applicator VAGINAL MOWEFR 05/24/23 06/01/23 History [Premarin Vaginal Cream] Liqua Martha Protein 1 dose PO BID 05/24/23 06/01/23 History calcitrioL [Calcitriol] 0.25 mcg PO MO 05/24/23 06/01/23 History hydrOXYzine HCL [Atarax] 20 mg PO HS 05/24/23 06/01/23 History Amoxic-Pot Clav 875-125Mg 1 tab PO Q12HR 14 Days #28 tab 05/30/23 06/01/23 Rx [Augmentin 875-125] Allergies Allergy/AdvReac Type Severity Reaction Status Date / Time levofloxacin [From Levaquin] Allergy Hallucinati Verified 06/01/23 21:45 ons losartan [Losartan] Allergy Unknown Verified 06/01/23 21:45 LUANA Inhibitors AdvReac Cough Verified 06/01/23 21:45 Physical Exam Vitals: Vital Signs Temp Pulse Pulse Resp BP BP Pulse Ox 06/03/23 08:11 135 H 125/91 94 L 06/03/23 08:00 135 H 06/03/23 07:12 98.4 F 122 H 16 130/84 93 L 06/03/23 05:59 98.7 F 81 16 114/83 94 L 06/03/23 02:14 99.4 F 123 H 16 130/84 93 L 06/03/23 00:00 98.5 F 73 16 121/81 96 06/02/23 19:56 98.2 F 81 16 116/82 95 06/02/23 12:47 97.9 F 65 20 121/77 96 Intake and Output 06/02/23 06/03/23 06/03/23 22:59 06:59 14:59 Intake Total 590 Balance 590 Intake: Oral 590 Other: Voiding Method Toilet Toilet # Voids 1 Results 06/03/23 04:23 06/03/23 04:23 Coagulation 06/03/23 Range/Units 04:23 PT 11.6 (10.0-12.5) sec CBC 06/03/23 Range/Units 04:23 WBC 21.80 H (4.50-10.00) X 10*3/uL RBC 3.13 L (4.10-5.20) X 10*6/uL Hgb 9.4 L (12.0-15.0) d/dL Hct 28.5 L (37.2-46.3) % Plt Count 397 (140-440) X 10*3/uL Comprehensive Metabolic Panel 06/03/23 Range/Units 04:23 Sodium 134 L (135-145) mmol/L Potassium 4.1 (3.5-5.5) mmol/L Chloride 98 (96-109) mmol/L Carbon Dioxide 23.0 (21.6-31.8) mmol/L BUN 35.4 H (9.0-27.0) mg/dL Creatinine 4.7 H (0.6-1.5) mg/dL Glucose 81 (70-110) mg/dL Calcium 8.6 L (8.7-10.3) mg/dL Current Medications Generic Name Dose Route Start Last Admin Trade Name Freq PRN Reason Stop Dose Admin Allopurinol 100 mg 06/02/23 09:00 06/03/23 08:11 Allopurinol 100 Mg Tab PO 100 mg BID JOHNNY Administration Atorvastatin Calcium 40 mg 06/02/23 21:00 06/02/23 20:42 Atorvastatin 40 Mg Tab PO 40 mg HS JOHNNY Administration Calcitriol 0.25 mcg 06/06/23 09:00 Calcitriol 0.25 Mcg Cap PO MO JOHNNY Cholecalciferol 25 mcg 06/02/23 21:00 06/03/23 08:12 Cholecalciferol 25 Mcg (1000 Iu) Tablet PO 25 mcg BID JOHNNY Administration Ferrous Sulfate 325 mg 06/03/23 09:00 06/03/23 08:12 Ferrous Sulfate 325 Mg Tab PO 325 mg DAILY JOHNNY Administration Heparin Sodium (Porcine) 5,000 unit 06/02/23 08:00 06/03/23 08:12 Heparin Sodium,Porcine 5,000 Unit/Ml 1 Ml Vial SQ 5,000 unit Q8HR JOHNNY Administration Hydroxyzine HCl 10 mg 06/03/23 09:00 06/03/23 08:31 Hydroxyzine Hcl 10 Mg Tab PO 10 mg DAILY JOHNNY Administration Hydroxyzine HCl 20 mg 06/02/23 21:00 06/02/23 20:42 Hydroxyzine Hcl 10 Mg Tab PO 20 mg HS JOHNNY Administration Ceftriaxone Sodium 2 gm/ 50 mls @ 100 mls/hr 06/02/23 09:00 06/03/23 08:20 Sodium Chloride IVPB 100 mls/hr Q24HR JOHNNY Administration Protocol Peritoneal Dialysis Solution 30 g in 2,000 mls @ 1,800 mls/hr 06/02/23 06:00 06/03/23 05:56 Delflex With 1.5% Dextrose (2,000 Ml) INTRAPERIT 1,800 mls/hr Q6HR JOHNNY Administration Protocol Metoprolol Tartrate 25 mg 06/03/23 10:00 06/03/23 10:29 Metoprolol Tartrate 25 Mg Tab PO 25 mg TID JOHNNY Administration Pantoprazole Sodium 40 mg 06/02/23 21:00 06/02/23 20:42 Pantoprazole 40 Mg Tablet PO 40 mg HS JOHNNY Administration Sodium Bicarbonate 650 mg 06/02/23 09:00 06/03/23 08:11 Sodium Bicarbonate Tab 650 Mg Tab PO 650 mg BID JOHNNY Administration Intake and Output 06/02/23 06/03/23 06/03/23 22:59 06:59 14:59 Intake Total 590 Balance 590 Intake: Oral 590 Other: Voiding Method Toilet Toilet # Voids 1 06/03/23 04:23 06/03/23 04:23
[2023-06-03 16:05] LABS: % Iron Saturation 18.05 (12.00-45.00)
--- NOTE | 2023-06-03 17:43 | CA ---
Transthoracic Echo Report Name: Linnette Brewer Age: 82 Gender: F : 1940 Exam Date: 06/03/2023 13:40 Exam Location: [facility] Ht (in): 64 Wt (lb): 179 Ordering Physician: Amy Samsno Attending/Referring Phys: [id number], [place] Chief Talent Officer Gela Galicia RDCS Procedure CPT: Indications: LVF Cardiac Hx: Technical Quality: Fair Contrast 1: Total Dose (mL): Contrast 2: Total Dose (mL): MEASUREMENTS (Male / Female) Normal Values 2D ECHO LV Diastolic Diameter PLAX 4.2 cm 4.2 - 5.9 / 3.9 - 5.3 cm LV Systolic Diameter PLAX 2.6 cm IVS Diastolic Thickness 1.3 cm 0.6 - 1.0 / 0.6 - 0.9 cm LVPW Diastolic Thickness 1.1 cm 0.6 - 1.0 / 0.6 - 0.9 cm LV Relative Wall Thickness 0.6 RV Internal Dim ED PLAX 3.4 cm LA Volume 53.9 cm??? 18 - 58 / 22 - 52 cm??? LA Volume Index 27.8 cm???/m??? 16 - 28 cm???/m??? M-MODE Aortic Root Diameter MM 3.2 cm LA Systolic Diameter MM 4.4 cm LA Ao Ratio MM 1.4 AV Cusp Separation MM 2.1 cm DOPPLER AV Peak Velocity 99.1 cm/s AV Peak Gradient 3.9 mmHg AV Mean Velocity 74.0 cm/s AV Mean Gradient 2.4 mmHg AV Velocity Time Integral 16.3 cm LVOT Peak Velocity 99.1 cm/s LVOT Peak Gradient 3.9 mmHg LVOT Velocity Time Integral 16.1 cm MV Area PHT 5.2 cm??? Mitral E Point Velocity 106.7 cm/s Mitral A Point Velocity 0.9 cm/s Mitral E to A Ratio 113.7 MV Deceleration Time 145.9 ms TR Peak Velocity 239.6 cm/s TR Peak Gradient 23.0 mmHg Right Ventricular Systolic Press 28.0 mmHg FINDINGS Left Ventricle Mildly increased left ventricular wall thickness. Left ventricular cavity size normal. Normal left ventricular systolic function with no obvious regional wall motion abnormalities. Left ventricular ejection fraction is estimated at 55-60 %. Right Ventricle Normal right ventricular size and function. Right ventricular systolic pressure within normal limits. Right Atrium Normal right atrial size. Left Atrium Mildly increased left atrial volume. Mitral Valve Structurally normal mitral valve. Mild mitral annular calcification. Mild to moderate mitral regurgitation. Aortic Valve No aortic valve stenosis, trace regurgitation. Tricuspid Valve Structurally normal tricuspid valve. Mild tricuspid regurgitation. Pulmonic Valve Trace pulmonic regurgitation. Pericardium No pericardial effusion. Aorta Normal size aortic root and proximal ascending aorta. CONCLUSIONS 1. Normal left ventricle size and systolic function 2. [id number] mitral with mild tricuspid regurgitation and trace aortic regurgitation Previewed by: Dr. Olga العلي MD (Electronically Signed) Final Date: 03 June 2023 17:42
[2023-06-03] MEDS: DIALYSIS (PERIT 1.5%) 2,000 ML 27 G/1,800 ML BAG INTRAPERIT SCH (17:45)
--- NOTE | 2023-06-03 22:17 | P.PN ---
Subjective Progress Note Date: 06/03/23 Principal diagnosis: Leukocytosis/Emphysematous pyelonephritis Patient is a 82-year-old female with a past medical history Beeghly for hypertension hyperlipidemia end-stage renal disease on peritoneal dialysis CVA TIA patient was recently admitted at this facility and there was concern for possible left renal abscess versus emphysematous pyelitis with a follow-up CT n egative for abscess discharge on oral antibiotic presented to the hospital with intractable nausea and vomiting and elevated white count. On today's evaluation that is 06/03/2023 patient denies having any fever or any chills patient is breathing comfortably patient denies any further nausea vomiting no abdominal pain or diarrhea no chest pain shortness of breath or cough. Patient did have a white count now down to 21.80 peritoneal fluid was clear with only 13 WBC blood cultures currently pending. Objective - Vital Signs Vital signs: Vital Signs Temp 98.4 F 06/03/23 07:12 Pulse 135 H 06/03/23 08:11 Resp 16 06/03/23 07:12 BP 125/91 06/03/23 08:11 Pulse Ox 94 L 06/03/23 08:11 FiO2 Intake & Output 06/02/23 06/03/23 06/03/23 18:59 06:59 18:59 Intake Total 590 Balance 590 Intake: Oral 590 Other: Voiding Method Toilet Toilet Toilet # Voids 1 # Bowel Movements 1 - Exam GENERAL DESCRIPTION: Elderly female lying in bed in no distress RESPIRATORY SYSTEM: Unlabored breathing , coarse breath sounds bilaterally HEART: S1 S2 regular rate and rhythm ,no loud murmurs ABDOMEN: Soft , no tenderness EXTREMITIES: No edema feet - Labs CBC & Chem 7: 06/03/23 04:23 06/03/23 04:23 Labs: Abnormal Lab Results - Last 24 Hours (Table) 06/02/23 06/03/23 06/03/23 Range/Units 12:06 04:23 04:23 WBC 21.80 H (4.50-10.00) X 10*3/uL RBC 3.13 L (4.10-5.20) X 10*6/uL Hgb 9.4 L (12.0-15.0) d/dL Hct 28.5 L (37.2-46.3) % RDW 16.0 H (11.5-14.5) % Neutrophils # 17.81 H (1.80-7.70) X 10*3/uL Monocytes # 1.75 H (0.20-1.00) X 10*3/uL Sodium 134 L (135-145) mmol/L Anion Gap 13.00 H (4.00-12.00) mmol/L BUN 35.4 H (9.0-27.0) mg/dL Creatinine 4.7 H (0.6-1.5) mg/dL Est GFR (CKD-EPI) 9 L (>=60) BUN/Creatinine Ratio 7.53 L (12.00-20.00) Ratio Calcium 8.6 L (8.7-10.3) mg/dL Phosphorus 5.0 H (2.5-4.5) mg/dL Microbiology - Last 24 Hours (Table) 06/01/23 18:50 Blood Culture - Preliminary Blood 06/01/23 18:35 Blood Culture - Preliminary Blood Assessment and Plan (1) Leukocytosis Current Visit: Yes Status: Acute Code(s): D72.829 - ELEVATED WHITE BLOOD CELL COUNT, UNSPECIFIED SNOMED Code(s): 846410516 (2) Emphysematous pyelonephritis Current Visit: No Status: Acute Code(s): N12 - TUBULO-INTERSTITIAL NEPHRITIS, NOT SPCF ACUTE OR CHRONIC SNOMED Code(s): 791430459 Plan: 1patient is 82-year-old female presenting to the hospital with intractable nausea and vomiting in this patient who was recently admitted to this facility from 05/25/2023 till 05/30/2023 at that point the patient did have a negative urine culture peritoneal fluid was negative blood culture negative there was initial concern for possible left-sided emphysematous pyelitis versus renal abscess repeat CT was reported negative now presenting back to the hospital with intractable vomiting questionable related to the left kidney infection versus PD catheter associated peritonitis 2peritoneal fluid is clear that we will rule out PD catheter since the peritonitis. 3IR has been consulted for possible aspirate of the left kidney want the patient to be off anticoagulation before the attempted to the procedure. 4in view of clinical improvement continue with Rocephin and will monitor clinical course closely. Care was discussed with medical team Dictation was produced using [employer] software. please excuse any grammatical, word or spelling errors.
[2023-06-03] MEDS: ATORVASTATIN 40 MG TAB PO SCH (22:39)
[2023-06-03] MEDS: METOPROLOL TARTRATE 50 MG TAB PO SCH (22:39)
[2023-06-03] MEDS: APIXABAN 2.5 MG TABLET PO SCH (22:40)
[2023-06-03] MEDS: PANTOPRAZOLE 40 MG TABLET PO SCH (22:40)
[2023-06-04] MEDS: DIALYSIS (PERIT 1.5%) 2,000 ML 27 G/1,800 ML BAG INTRAPERIT SCH ×4 (01:04→18:16)
[2023-06-04 06:57] LABS: Basophils # (A) 0.1 k/uL (0-0.2); Basophils % (A) 0 %; Eosinophils # (A) 0.1 k/uL (0-0.7); Eosinophils % (A) 1 %; HCT 31.6 % (34.0-46.0); HGB 10.4 gm/dL (11.4-16.0); Lymphocytes # (A) 2.3 k/uL (1.0-4.8); Lymphocytes % (A) 11 %; MCH 30.9 pg (25.0-35.0); MCHC 32.8 g/dL (31.0-37.0); MCV 94.3 fL (80.0-100.0); Monocytes # (A) 1.3 k/uL (0-1.0); Monocytes % (A) 6 %; Neutrophils # (A) 15.8 k/uL (1.3-7.7); Neutrophils % (A) 79 %; Platelet Count 396 k/uL (150-450); RBC 3.35 m/uL (3.80-5.40); RDW 15.3 % (11.5-15.5)
[2023-06-04 07:07] LABS: African American GFR (CKD) 10 (>60 ml/min/1.73 sqM); Anion Gap 10 mmol/L; Blood Urea Nitrogen 31 mg/dL (7-17); Calcium 8.8 mg/dL (8.4-10.2); Carbon Dioxide 25 mmol/L (22-30); Chloride 98 mmol/L (98-107); Glucose 77 mg/dL (74-99); Non-African American GFR(CKD) 9 (>60 ml/min/1.73 sqM); Potassium 3.9 mmol/L (3.5-5.1); Sodium 133 mmol/L (137-145)
[2023-06-04] MEDS: CALCIUM ACETATE 667 MG TAB PO SCH ×2 (08:28→17:54)
[2023-06-04] MEDS: hydrOXYzine HCL 10 MG TAB PO SCH ×2 (08:28→20:31)
[2023-06-04] MEDS: SODIUM BICARBONATE TAB 650 MG TAB PO SCH ×2 (08:28→20:31)
[2023-06-04] MEDS: allopurinoL 100 MG TAB PO SCH ×2 (08:29→20:31)
[2023-06-04] MEDS: CHOLECALCIFEROL 25 MCG (1000 IU) TABLET PO SCH ×2 (08:29→20:31)
[2023-06-04] MEDS: APIXABAN 2.5 MG TABLET PO SCH (08:29)
[2023-06-04] MEDS: FERROUS SULFATE 325 MG TAB PO SCH (08:29)
[2023-06-04] MEDS: METOPROLOL TARTRATE 50 MG TAB PO SCH ×2 (08:29→20:30)
--- NOTE | 2023-06-04 11:51 | P.PN ---
Subjective Patient is seen in follow-up for end-stage renal disease. She is maintained on peritoneal dialysis. No problems with PD exchanges. Dialysate clear. Oral intake fair. No active complaints. Vital signs are stable. General: No acute distress. HEENT: Head exam is unremarkable. LUNGS: No audible rhonchi or wheezes. HEART: Rate and Rhythm are regular. ABDOMEN: Nontender. EXTREMITITES: No edema. Objective - Vital Signs Vital signs: Vital Signs Temp 98.4 F 06/04/23 07:15 Pulse 66 06/04/23 07:15 Resp 16 06/04/23 07:15 BP 121/78 06/04/23 07:15 Pulse Ox 95 06/04/23 07:15 FiO2 Intake & Output 06/03/23 06/04/23 06/04/23 18:59 06:59 18:59 Intake Total 400 Balance 400 Intake: Intake, IV Titration 400 Amount cefTRIAXone 2 gm In 400 Sodium Chloride 0.9% 50 ml @ 100 mls/hr IVPB Q24HR [facility] Rx#:[id number] Other: Voiding Method Toilet Toilet # Voids 2 # Bowel Movements 2 - Labs CBC & Chem 7: 06/04/23 06:16 06/04/23 06:16 Labs: Abnormal Lab Results - Last 24 Hours (Table) 06/03/23 06/04/23 06/04/23 Range/Units : 06:16 06:16 WBC 20.0 H (3.8-10.6) k/uL RBC 3.35 L (3.80-5.40) m/uL Hgb 10.4 L (11.4-16.0) gm/dL Hct 31.6 L (34.0-46.0) % Neutrophils # 15.8 H (1.3-7.7) k/uL Monocytes # 1.3 H (0-1.0) k/uL Sodium 133 L (137-145) mmol/L BUN 31 H (7-17) mg/dL Creatinine 4.48 H (0.52-1.04) mg/dL Iron 24 L (50-170) UG/DL TIBC 133 L (228-460) UG/DL Transferrin 95.0 L (204.0-354.0) mg/dL Ferritin 1167.0 H (10.0-291.0) ng/mL Microbiology - Last 24 Hours (Table) 06/02/23 12:45 Gram Stain - Preliminary Peritoneal Fluid Body Fluid Culture - Preliminary 06/01/23 18:50 Blood Culture - Preliminary Blood 06/01/23 18:35 Blood Culture - Preliminary Blood Assessment and Plan Plan: Assessment: 1. End-stage renal disease maintained on peritoneal dialysis. 2. UTI maintained on antibiotics. Questionable renal abscess. May need to be drained. ID following. Dialysate WBC count 13. 3. Chronic kidney disease mineral bone disease maintained on calcitriol. Phosphorus level 5.0 dated 06/02/2023. On PhosLo. 4. Metabolic acidosis secondary to chronic kidney disease maintained on oral bicarbonate. 5. Anemia of chronic kidney disease. Iron deficiency noted. 6. Hypomagnesemia from poor intake. Replaced. Better. Plan: Maintain current PD exchanges. Add IV iron.
[2023-06-04] MEDS: SODIUM FERRIC GLUCONAT-SUCROSE 125 MG in SODIUM CHLORIDE 0.9% 100 ML IVPB SCH (13:29)
--- NOTE | 2023-06-04 13:36 | P.PN ---
Subjective Progress Note Date: 06/04/23 his is an 82 year old female patient of Dr. Roca with past medical history of hypertension, dyslipidemia, history of TIA, end-stage renal disease on peritoneal dialysis, valvular heart disease with aortic, mitral regurgitation and tricuspid regurgitation. We have been asked to evaluate the patient for A. fib with RVR. Patient presented to the emergency room on 06/01 with nausea and vomiting and treated for suspected left renal cortical abscess versus PD catheter associated peritonitis. Patient denies any previous history of atrial fibrillation. She does recall feeling palpitations when she had the initial episode of A. fib. She has not felt palpitations like that in the past. She did get sweaty with this and a little dizzy. No syncopal episode. She denies having any chest pain and no shortness of breath and no dizziness at this time. She states she is normally active at home. She does not have shortness of breath or chest pain with activity. No PND. No blood in her stools. She did have nausea earlier which is improved. No abdominal pain. She does have a dry cough. She is a nonsmoker. 06/04/2023 C and examined resting comfortably in bed. All feeling quite a bit better today . Echocardiogram with Doppler study showed a normal LV systolic function with mild to moderate MR and mild TR. She is mostly maintaining sinus mechanism on the monitor with brief episodes of PAF with heart rates around 100-120 with the last one around 1 in the morning. She has not felt palpitations with these. Vital signs have been stable. Objective - Vital Signs Vital signs: Vital Signs Temp 98.4 F 06/04/23 07:15 Pulse 66 06/04/23 07:15 Resp 16 06/04/23 07:15 BP 121/78 06/04/23 07:15 Pulse Ox 95 06/04/23 07:15 FiO2 Intake & Output 06/03/23 06/04/23 06/04/23 18:59 06:59 18:59 Intake Total 400 Balance 400 Intake: Intake, IV Titration 400 Amount cefTRIAXone 2 gm In 400 Sodium Chloride 0.9% 50 ml @ 100 mls/hr IVPB Q24HR [facility] Rx#:[id number] Other: Voiding Method Toilet Toilet # Voids 2 # Bowel Movements 2 - Exam HEENT: Head is atraumatic, normocephalic. Pupils equal, round. Sclerae is anicteric. NECK: Supple. No JVD. LUNGS: Clear to auscultation. No wheezes or rhonchi. No intercostal retractions. HEART: Regular rate and rhythm. Systolic murmur. ABDOMEN: Soft No tenderness. EXTREMITIES: No pedal edema. No calf tenderness. NEUROLOGICAL: Patient is awake, alert and oriented x3. - Labs CBC & Chem 7: 06/04/23 06:16 06/04/23 06:16 Labs: Abnormal Lab Results - Last 24 Hours (Table) 06/03/23 06/04/23 06/04/23 Range/Units 04:23 06:16 06:16 WBC 20.0 H (3.8-10.6) k/uL RBC 3.35 L (3.80-5.40) m/uL Hgb 10.4 L (11.4-16.0) gm/dL Hct 31.6 L (34.0-46.0) % Neutrophils # 15.8 H (1.3-7.7) k/uL Monocytes # 1.3 H (0-1.0) k/uL Sodium 133 L (137-145) mmol/L BUN 31 H (7-17) mg/dL Creatinine 4.48 H (0.52-1.04) mg/dL Iron 24 L (50-170) UG/DL TIBC 133 L (228-460) UG/DL Transferrin 95.0 L (204.0-354.0) mg/dL Ferritin 1167.0 H (10.0-291.0) ng/mL Microbiology - Last 24 Hours (Table) 06/02/23 12:45 Gram Stain - Preliminary Peritoneal Fluid Body Fluid Culture - Preliminary 06/01/23 18:50 Blood Culture - Preliminary Blood 06/01/23 18:35 Blood Culture - Preliminary Blood Assessment and Plan Assessment: Paroxysmal atrial fibrillation with RVR Renal abscess versus peritonitis on antibiotics and followed by ID Hypertension Dyslipidemia History of TIA End-stage renal disease on peritoneal dialysis Valvular heart disease with aortic, mitral and tricuspid regurgitation Plan: From cardiology's perspective medications were reviewed and we will continue the same. From our standpoint patient is stable for discharge home when okay with primary and ID. She will follow-up in the office with Dr. Roca. [employer] note has been reviewed, I agree with a documented findings and plan of care. Patient was seen and examined.
--- NOTE | 2023-06-04 14:44 | P.PN ---
Subjective Progress Note Date: 06/04/23 Patient is an 82-year-old female with end-stage renal disease on peritoneal dialysis, hypertension, and dyslipidemia who presented to the ER with nausea and vomiting. Patient was initially hospitalized here from 05/25 through 05/30 for renal ascess with sepsis when she was discharged home on Augmentin. On arrival to the ER this time her white blood focal was 37.4, hemoglobin 10.8, and BNP was consistent with peritoneal dialysis. She has admitted for worsening sepsis had failed outpatient treatment of renal abscess. She was started on Rocephin and arrangements were made for admission. Infectious disease and nephrology were consulted. She was continued on Rocephin. Peritoneal fluid was not consistent with infection. IR was consulted for possible biopsy, however the patient had been on aspirin they recommended doing this for 5 days prior to biopsy. Patient went into atrial fibrillation with rapid ventricular response and her atenolol was discontinued and metoprolol 25 mg 3 times daily was initiated. Cardiology was consulted. She underwent an echocardiogram which showed an ejection fraction of 55-60% with trace to moderate mitral, tricuspid, and aortic regurgitation. Patient seen and examined at bedside. She is doing well. Her nausea and vomiting have resolved. She is not having any abdominal pain or difficulty with urination. All questions answered. She is aware of the plan for possible biopsy on Tuesday. Vital signs reviewed General: nontoxic, no distress, appears at stated age Cardiovascular: S1S2 reg, no murmur, positive posterior tibial pulse bilateral, Lungs: CTA bilateral, no rhonchi, no rales , no accessory muscle use Abdominal: soft, nontender to palpation, no guarding, no appreciable organomegaly Ext: no gross muscle atrophy, no LE edema b/l lower extremities, no contractures Neuro: CN II-XI grossly intact, no focal neuro deficits Psych: Alert, oriented, appropriate affect Assessment/Plan: Suspected left renal cortical abscess/polynephritis Sepsis -Rocephin 2 g IV piggyback day #4 - Aspirin and Eliquis on HOLD FOR POSSIBLE RENAL BIOPSY on 06/06, awaiit iR review of case -Infectious disease note reviewed: Recommend left kidney biopsy, continue with Rocephin - blood cultures negative to date. - follow CBC to monitor infection ESRD on peritoneal dialysis Anemia of ESRD - nephrology note reviewed: continue with PD, add IV Iron - SOdium Bicarb 650 mg BID -No signs of peritonitis - repeat BMP in AM to ensure effective PD Paroxysmal atrial fibrillation with rapid ventricular response, now in normal sinus rhythm Hypertension Dyslipidemia Valvular heart disease with aortic, mitral, and tricuspid regurgitation -Cardiology note reviewed: No medication changes, outpatient follow up with Dr. Roca - Lopressor 50 mg BID - Eliquis 2.5 mg twice daily on hold due to need for renal biopsy and now in NSR - Lipitor 40 mg at night - Aspirin on hold due to possible renal biopsy. Resolved: Lactic acidosis Hypomagnesemia Chronic: Hypertension Dyslipidemia Gout Imaging: echocardiogram which showed an ejection fraction of 55-60% with mild to moderate mitral, tricuspid, and aortic regurgitation Data Review: Plans regions morning included a CBC and basic metabolic profile remarkable for white blood cell count 20 (down from 21), sodium 133, BUN 31, creatinine 4.48. Actonel fluid-no growth for 24 hours Blood cultures-no growth for 48 hours 2 DVT prophylaxis: SCDs Anticipated discharge date: Pending Clinical Course Anticipated discharge place: Pending Clinical Course This dictation was prepared using [employer] voice recognition software. Though every attempt is made to correct errors during dictation some may still exist. Objective - Vital Signs Vital signs: Vital Signs Temp 98.0 F 06/04/23 12:04 Pulse 68 06/04/23 12:45 Resp 20 06/04/23 12:45 BP 139/88 06/04/23 12:45 Pulse Ox 94 L 06/04/23 12:45 FiO2 Intake & Output 06/03/23 06/04/23 06/04/23 18:59 06:59 18:59 Intake Total 400 Balance 400 Intake: Intake, IV Titration 400 Amount cefTRIAXone 2 gm In 400 Sodium Chloride 0.9% 50 ml @ 100 mls/hr IVPB Q24HR [facility] Rx#:[id number] Other: Voiding Method Toilet Toilet # Voids 2 # Bowel Movements 2 - Labs CBC & Chem 7: 06/04/23 06:16 06/04/23 06:16 Labs: Abnormal Lab Results - Last 24 Hours (Table) 06/03/23 06/04/23 06/04/23 Range/Units 04:23 06:16 06:16 WBC 20.0 H (3.8-10.6) k/uL RBC 3.35 L (3.80-5.40) m/uL Hgb 10.4 L (11.4-16.0) gm/dL Hct 31.6 L (34.0-46.0) % Neutrophils # 15.8 H (1.3-7.7) k/uL Monocytes # 1.3 H (0-1.0) k/uL Sodium 133 L (137-145) mmol/L BUN 31 H (7-17) mg/dL Creatinine 4.48 H (0.52-1.04) mg/dL Iron 24 L (50-170) UG/DL TIBC 133 L (228-460) UG/DL Transferrin 95.0 L (204.0-354.0) mg/dL Ferritin 1167.0 H (10.0-291.0) ng/mL Microbiology - Last 24 Hours (Table) 06/02/23 12:45 Gram Stain - Preliminary Peritoneal Fluid Body Fluid Culture - Preliminary 06/01/23 18:50 Blood Culture - Preliminary Blood 06/01/23 18:35 Blood Culture - Preliminary Blood
[2023-06-04] MEDS: ATORVASTATIN 40 MG TAB PO SCH (20:30)
[2023-06-04] MEDS: PANTOPRAZOLE 40 MG TABLET PO SCH (20:30)
--- NOTE | 2023-06-04 23:38 | P.PN ---
Subjective Progress Note Date: 06/04/23 Principal diagnosis: Leukocytosis/Emphysematous pyelonephritis Patient is a 82-year-old female with a past medical history Beeghly for hypertension hyperlipidemia end-stage renal disease on peritoneal dialysis CVA TIA patient was recently admitted at this facility and there was concern for possible left renal abscess versus emphysematous pyelitis with a follow-up CT n egative for abscess discharge on oral antibiotic presented to the hospital with intractable nausea and vomiting and elevated white count. On today's evaluation that is 06/04/2023 patient is afebrile , patient is breathing comfortably on room air , patient denies any further nausea vomiting and no abdominal pain or diarrhea no chest pain shortness of breath or cough. Patient did have a white count slightly down to 20K peritoneal fluid was clear with only 13 WBC blood cultures currently pending. Objective - Vital Signs Vital signs: Vital Signs Temp 98.2 F 06/04/23 19:05 Pulse 81 06/04/23 19:05 Resp 18 06/04/23 19:05 BP 142/93 06/04/23 19:05 Pulse Ox 94 L 06/04/23 19:05 FiO2 Intake & Output 06/04/23 06/04/23 06/05/23 06:59 18:59 05:59 Intake Total 400 Balance 400 Intake: Intake, IV Titration 400 Amount cefTRIAXone 2 gm In 400 Sodium Chloride 0.9% 50 ml @ 100 mls/hr IVPB Q24HR [facility] Rx#:[id number] Other: Voiding Method Toilet Toilet # Voids 2 2 - Exam GENERAL DESCRIPTION: Elderly female lying in bed in no distress RESPIRATORY SYSTEM: Unlabored breathing , coarse breath sounds bilaterally HEART: S1 S2 regular rate and rhythm ,no loud murmurs ABDOMEN: Soft , no tenderness EXTREMITIES: No edema feet - Labs CBC & Chem 7: 06/04/23 06:16 06/04/23 06:16 Labs: Abnormal Lab Results - Last 24 Hours (Table) 06/04/23 06/04/23 Range/Units 06:16 06:16 WBC 20.0 H (3.8-10.6) k/uL RBC 3.35 L (3.80-5.40) m/uL Hgb 10.4 L (11.4-16.0) gm/dL Hct 31.6 L (34.0-46.0) % Neutrophils # 15.8 H (1.3-7.7) k/uL Monocytes # 1.3 H (0-1.0) k/uL Sodium 133 L (137-145) mmol/L BUN 31 H (7-17) mg/dL Creatinine 4.48 H (0.52-1.04) mg/dL Microbiology - Last 24 Hours (Table) 06/02/23 12:45 Gram Stain - Preliminary Peritoneal Fluid Body Fluid Culture - Preliminary 06/01/23 18:50 Blood Culture - Preliminary Blood 06/01/23 18:35 Blood Culture - Preliminary Blood Assessment and Plan (1) Leukocytosis Current Visit: Yes Status: Acute Code(s): D72.829 - ELEVATED WHITE BLOOD CELL COUNT, UNSPECIFIED SNOMED Code(s): 544905117 (2) Emphysematous pyelonephritis Current Visit: No Status: Acute Code(s): N12 - TUBULO-INTERSTITIAL NEPHRITIS, NOT SPCF ACUTE OR CHRONIC SNOMED Code(s): 933491862 Plan: 1patient is 82-year-old female presenting to the hospital with intractable nausea and vomiting in this patient who was recently admitted to this facility from 05/25/2023 till 05/30/2023 at that point the patient did have a negative urine culture peritoneal fluid was negative blood culture negative there was initial concern for possible left-sided emphysematous pyelitis versus renal abscess repeat CT was reported negative now presenting back to the hospital with intractable vomiting questionable related to the left kidney infection versus PD catheter associated peritonitis 2peritoneal fluid is clear that we will rule out PD catheter assocaited peritonitis. 3IR has been consulted for possible aspirate of the left kidney want the patient to be off anticoagulation before the attempted to the procedure. 4Pt has shown clinical improvement continue with Rocephin and possible IV antibiotics on discharge pending aspirate and cultures Dictation was produced using [employer] dictation software. please excuse any grammatical, word or spelling errors. Time with Patient: Less than 30
[2023-06-05] MEDS: DIALYSIS (PERIT 1.5%) 2,000 ML 27 G/1,800 ML BAG INTRAPERIT SCH ×5 (00:18→23:54)
[2023-06-05 05:00] LABS: HCT 30.9 % (34.0-46.0); MCH 30.5 pg (25.0-35.0); MCHC 32.5 g/dL (31.0-37.0); MCV 93.7 fL (80.0-100.0); Platelet Count 399 k/uL (150-450); RDW 15.4 % (11.5-15.5)
[2023-06-05 05:11] LABS: African American GFR (CKD) 10 (>60 ml/min/1.73 sqM); Anion Gap 9 mmol/L; Blood Urea Nitrogen 26 mg/dL (7-17); Calcium 8.9 mg/dL (8.4-10.2); Carbon Dioxide 27 mmol/L (22-30); Chloride 98 mmol/L (98-107); Glucose 90 mg/dL (74-99); Non-African American GFR(CKD) 9 (>60 ml/min/1.73 sqM); Potassium 3.3 mmol/L (3.5-5.1); Sodium 134 mmol/L (137-145)
[2023-06-05] MEDS: hydrOXYzine HCL 10 MG TAB PO SCH ×2 (07:33→20:13)
[2023-06-05] MEDS: METOPROLOL TARTRATE 50 MG TAB PO SCH ×2 (07:33→20:12)
[2023-06-05] MEDS: CALCIUM ACETATE 667 MG TAB PO SCH ×2 (07:34→17:09)
[2023-06-05] MEDS: FERROUS SULFATE 325 MG TAB PO SCH (07:34)
[2023-06-05] MEDS: allopurinoL 100 MG TAB PO SCH ×2 (07:34→20:12)
[2023-06-05] MEDS: SODIUM BICARBONATE TAB 650 MG TAB PO SCH ×2 (07:34→20:12)
[2023-06-05] MEDS: CHOLECALCIFEROL 25 MCG (1000 IU) TABLET PO SCH ×2 (07:34→20:12)
[2023-06-05] MEDS ORDERED: POTASSIUM CHLORIDE ER 20 MEQ TAB.ER PO STA ×2 (08:08→12:16)
--- NOTE | 2023-06-05 08:12 | P.PN ---
Subjective Progress Note Date: 06/05/23 Patient is an 82-year-old female with end-stage renal disease on peritoneal dialysis, hypertension, and dyslipidemia who presented to the ER with nausea and vomiting. Patient was initially hospitalized here from 05/25 through 05/30 for renal ascess with sepsis when she was discharged home on Augmentin. On arrival to the ER this time her white blood focal was 37.4, hemoglobin 10.8, and BNP was consistent with peritoneal dialysis. She has admitted for worsening sepsis had failed outpatient treatment of renal abscess. She was started on Rocephin and arrangements were made for admission. Infectious disease and nephrology were consulted. She was continued on Rocephin. Peritoneal fluid was not consistent with infection. IR was consulted for possible biopsy, however the patient had been on aspirin they recommended doing this for 5 days prior to biopsy. Patient went into atrial fibrillation with rapid ventricular response and her atenolol was discontinued and metoprolol 25 mg 3 times daily was initiated. Cardiology was consulted. She underwent an echocardiogram which showed an ejection fraction of 55-60% with trace to moderate mitral, tricuspid, and aortic regurgitation. Patient seen and examined at bedside. She tolerated her regular diet last night. She has no other complaints. She is okay with currently plan for reassessment by IR on 06/06. Vital signs reviewed General: nontoxic, no distress, appears at stated age Cardiovascular: S1S2 reg, no murmur, positive posterior tibial pulse bilateral, Lungs: Decreased bs bilateral, no rhonchi, no rales , no accessory muscle use Abdominal: soft, nontender to palpation, no guarding, no appreciable organomegaly Ext: no gross muscle atrophy, no edema b/l lower extremities, no contractures Neuro: CN II-XI grossly intact, no focal neuro deficits Psych: Alert, oriented, appropriate affect Assessment/Plan: Suspected left renal cortical abscess/polynephritis Sepsis -Rocephin 2 g IV piggyback day #5 - Aspirin and Eliquis on HOLD FOR POSSIBLE RENAL BIOPSY on 06/06, awaiit IR review of case - ID note reviewed from 06/04: continue with rocephin, await possible biopsy - blood cultures negative to date. - follow CBC to monitor infection Hypokalemia - Potassium chloride 20 meq PO X1 ESRD on peritoneal dialysis Anemia of ESRD - await further nephrology recs - Sodium Bicarb 650 mg BID - No signs of peritonitis - repeat BMP in AM to ensure effective PD Paroxysmal atrial fibrillation with rapid ventricular response, now in normal sinus rhythm Hypertension Dyslipidemia Valvular heart disease with aortic, mitral, and tricuspid regurgitation - Cardiology signed off: outpatient follow up with Dr. Roca - Lopressor 50 mg BID - Eliquis 2.5 mg twice daily on hold due to need for renal biopsy and now in NSR - Lipitor 40 mg at night - Aspirin on hold due to possible renal biopsy. Resolved: Lactic acidosis Hypomagnesemia Chronic: Hypertension Dyslipidemia Gout Imaging: None new Data Review: Labs reviewed included CBC and basic metabolic profile which were remarkable for white blood cells 15 (down from 20), hemoglobin 10, sodium 134, potassium 3.3, BUN 26, creatinine 4.38 DVT prophylaxis: SCDs Anticipated discharge date: in 2-[address]: home with home health This dictation was prepared using [place] voice recognition software. Though every attempt is made to correct errors during dictation some may still exist. Objective - Vital Signs Vital signs: Vital Signs Temp 97.9 F 06/05/23 07:11 Pulse 64 06/05/23 07:11 Resp 16 06/05/23 07:11 BP 119/78 06/05/23 07:11 Pulse Ox 94 L 06/05/23 07:11 FiO2 Intake & Output 06/04/23 06/05/23 06/05/23 19:59 06:59 18:59 Other: Voiding Method Toilet CAPD # Voids - Labs CBC & Chem 7: 06/05/23 04:31 06/05/23 04:31 Labs: Abnormal Lab Results - Last 24 Hours (Table) 06/05/23 06/05/23 Range/Units 04:31 04:31 WBC 15.0 H (3.8-10.6) k/uL RBC 3.30 L (3.80-5.40) m/uL Hgb 10.0 L (11.4-16.0) gm/dL Hct 30.9 L (34.0-46.0) % Sodium 134 L (137-145) mmol/L Potassium 3.3 L (3.5-5.1) mmol/L BUN 26 H (7-17) mg/dL Creatinine 4.38 H (0.52-1.04) mg/dL Microbiology - Last 24 Hours (Table) 06/01/23 18:50 Blood Culture - Preliminary Blood 06/01/23 18:35 Blood Culture - Preliminary Blood 06/02/23 12:45 Gram Stain - Preliminary Peritoneal Fluid Body Fluid Culture - Preliminary
[2023-06-05] MEDS: SODIUM FERRIC GLUCONAT-SUCROSE 125 MG in SODIUM CHLORIDE 0.9% 100 ML IVPB SCH (09:43)
--- NOTE | 2023-06-05 10:59 | P.PN ---
Subjective Progress Note Date: 06/05/23 his is an 82 year old female patient of Dr. Roca with past medical history of hypertension, dyslipidemia, history of TIA, end-stage renal disease on peritoneal dialysis, valvular heart disease with aortic, mitral regurgitation and tricuspid regurgitation. We have been asked to evaluate the patient for A. fib with RVR. Patient presented to the emergency room on 06/01 with nausea and vomiting and treated for suspected left renal cortical abscess versus PD catheter associated peritonitis. Patient denies any previous history of atrial fibrillation. She does recall feeling palpitations when she had the initial episode of A. fib. She has not felt palpitations like that in the past. She did get sweaty with this and a little dizzy. No syncopal episode. She denies having any chest pain and no shortness of breath and no dizziness at this time. She states she is normally active at home. She does not have shortness of breath or chest pain with activity. No PND. No blood in her stools. She did have nausea earlier which is improved. No abdominal pain. She does have a dry cough. She is a nonsmoker. 06/04/2023 The patient was seen and examined resting comfortably in bed. All feeling quite a bit better today. Echocardiogram with Doppler study showed a normal LV systolic function with mild to moderate MR and mild TR. She is mostly maintaining sinus mechanism on the monitor with brief episodes of PAF with heart rates around 100-120 with the last one around 1 in the morning. She has not felt palpitations with these. Vital signs have been stable. 06/05/2023 Patient seen and examined resting comfortably in bed. She is overall feeling well but was quite weak during her shower this morning. VS have been stable. She continues to have brief episodes of PAF that are asymptomatic. Objective - Vital Signs Vital signs: Vital Signs Temp 97.9 F 06/05/23 07:11 Pulse 64 06/05/23 07:11 Resp 16 06/05/23 07:11 BP 119/78 06/05/23 07:11 Pulse Ox 94 L 06/05/23 07:11 FiO2 Intake & Output 06/04/23 06/05/23 06/05/23 19:59 06:59 18:59 Other: Voiding Method Toilet CAPD # Voids - Exam HEENT: Head is atraumatic, normocephalic. Pupils equal, round. Sclerae is anicteric. NECK: Supple. No JVD. LUNGS: Clear to auscultation. No wheezes or rhonchi. No intercostal retractions. HEART: Regular rate and rhythm. Systolic murmur. ABDOMEN: Soft No tenderness. EXTREMITIES: No pedal edema. No calf tenderness. NEUROLOGICAL: Patient is awake, alert and oriented x3. - Labs CBC & Chem 7: 06/05/23 04:31 06/05/23 04:31 Labs: Abnormal Lab Results - Last 24 Hours (Table) 06/05/23 06/05/23 Range/Units 04:31 04:31 WBC 15.0 H (3.8-10.6) k/uL RBC 3.30 L (3.80-5.40) m/uL Hgb 10.0 L (11.4-16.0) gm/dL Hct 30.9 L (34.0-46.0) % Sodium 134 L (137-145) mmol/L Potassium 3.3 L (3.5-5.1) mmol/L BUN 26 H (7-17) mg/dL Creatinine 4.38 H (0.52-1.04) mg/dL Microbiology - Last 24 Hours (Table) 06/02/23 12:45 Gram Stain - Preliminary Peritoneal Fluid Body Fluid Culture - Preliminary 06/01/23 18:50 Blood Culture - Preliminary Blood 06/01/23 18:35 Blood Culture - Preliminary Blood Assessment and Plan Assessment: Paroxysmal atrial fibrillation with RVR Renal abscess versus peritonitis on antibiotics and followed by ID Hypertension Dyslipidemia History of TIA End-stage renal disease on peritoneal dialysis Valvular heart disease with aortic, mitral and tricuspid regurgitation Plan: From cardiology's perspective medications were reviewed and we will continue the same. From our standpoint patient is stable for discharge home when okay with primary and ID. She will follow-up in the office with Dr. Roca. This time also the patient on an as-needed basis. Please do not hesitate to contact us with questions. 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 Patient was seen and examined.
--- NOTE | 2023-06-05 12:16 | P.PN ---
Subjective Patient is seen in follow-up for end-stage renal disease. She is maintained on peritoneal dialysis. No problems with PD exchanges. Dialysate clear. Oral intake fair. No active complaints. Vital signs are stable. General: No acute distress. HEENT: Head exam is unremarkable. LUNGS: No audible rhonchi or wheezes. HEART: Rate and Rhythm are regular. ABDOMEN: Nontender. EXTREMITITES: No edema. Objective - Vital Signs Vital signs: Vital Signs Temp 97.9 F 06/05/23 07:11 Pulse 64 06/05/23 07:11 Resp 16 06/05/23 07:11 BP 119/78 06/05/23 07:11 Pulse Ox 94 L 06/05/23 07:11 FiO2 Intake & Output 06/04/23 06/05/23 06/05/23 19:59 06:59 18:59 Other: Voiding Method Toilet CAPD # Voids - Labs CBC & Chem 7: 06/05/23 04:31 06/05/23 04:31 Labs: Abnormal Lab Results - Last 24 Hours (Table) 06/05/23 06/05/23 Range/Units 04:31 04:31 WBC 15.0 H (3.8-10.6) k/uL RBC 3.30 L (3.80-5.40) m/uL Hgb 10.0 L (11.4-16.0) gm/dL Hct 30.9 L (34.0-46.0) % Sodium 134 L (137-145) mmol/L Potassium 3.3 L (3.5-5.1) mmol/L BUN 26 H (7-17) mg/dL Creatinine 4.38 H (0.52-1.04) mg/dL Microbiology - Last 24 Hours (Table) 06/02/23 12:45 Gram Stain - Preliminary Peritoneal Fluid Body Fluid Culture - Preliminary 06/01/23 18:50 Blood Culture - Preliminary Blood 06/01/23 18:35 Blood Culture - Preliminary Blood Assessment and Plan Plan: Assessment: 1. End-stage renal disease maintained on peritoneal dialysis. 2. UTI maintained on antibiotics. Questionable renal abscess. May need to be drained. ID following. Dialysate WBC count 13. 3. Chronic kidney disease mineral bone disease maintained on calcitriol. Phosphorus level 5.0 dated 06/02/2023. On PhosLo. 4. Metabolic acidosis secondary to chronic kidney disease maintained on oral bicarbonate. 5. Anemia of chronic kidney disease. Iron deficiency noted. 6. Hypomagnesemia from poor intake. Replaced. Better. 7. Hypokalemia from poor intake and PD losses. Plan: Maintain current PD exchanges. Maintain IV iron. Replace potassium.
--- NOTE | 2023-06-05 14:29 | P.PN ---
Subjective Progress Note Date: 06/05/23 Principal diagnosis: Leukocytosis/Emphysematous pyelonephritis Patient is a 82-year-old female with a past medical history Beeghly for hypertension hyperlipidemia end-stage renal disease on peritoneal dialysis CVA TIA patient was recently admitted at this facility and there was concern for possible left renal abscess versus emphysematous pyelitis with a follow-up CT n egative for abscess discharge on oral antibiotic presented to the hospital with intractable nausea and vomiting and elevated white count. On today's evaluation that is 06/05/2023, the patient denies any fever or any chills, the patient is breathing comfortably on room air and no need for supplemental oxygen, the patient denies any chest pain and no cough or sputum production, patient denies Abdominal pain and no nausea/vomiting or diarrhea Patient did have a white count is down to 15,000, creatinine 4.38 peritoneal fluid was clear with only 13 WBC blood cultures currently pending. Objective - Vital Signs Vital signs: Vital Signs Temp 97.8 F 06/05/23 12:37 Pulse 68 06/05/23 12:37 Resp 18 06/05/23 12:37 BP 134/84 06/05/23 12:37 Pulse Ox 93 L 06/05/23 12:37 FiO2 Intake & Output 06/04/23 06/05/23 06/05/23 19:59 06:59 18:59 Other: Voiding Method Toilet CAPD # Voids - Exam GENERAL DESCRIPTION: Elderly female lying in bed in no distress RESPIRATORY SYSTEM: Unlabored breathing , coarse breath sounds bilaterally HEART: S1 S2 regular rate and rhythm ,no loud murmurs ABDOMEN: Soft , no tenderness EXTREMITIES: No edema feet - Labs CBC & Chem 7: 06/05/23 04:31 06/05/23 04:31 Labs: Abnormal Lab Results - Last 24 Hours (Table) 06/05/23 06/05/23 Range/Units 04:31 04:31 WBC 15.0 H (3.8-10.6) k/uL RBC 3.30 L (3.80-5.40) m/uL Hgb 10.0 L (11.4-16.0) gm/dL Hct 30.9 L (34.0-46.0) % Sodium 134 L (137-145) mmol/L Potassium 3.3 L (3.5-5.1) mmol/L BUN 26 H (7-17) mg/dL Creatinine 4.38 H (0.52-1.04) mg/dL Microbiology - Last 24 Hours (Table) 06/02/23 12:45 Gram Stain - Preliminary Peritoneal Fluid Body Fluid Culture - Preliminary 06/01/23 18:50 Blood Culture - Preliminary Blood 06/01/23 18:35 Blood Culture - Preliminary Blood Assessment and Plan (1) Leukocytosis Current Visit: Yes Status: Acute Code(s): D72.829 - ELEVATED WHITE BLOOD CELL COUNT, UNSPECIFIED SNOMED Code(s): 319045626 (2) Emphysematous pyelonephritis Current Visit: No Status: Acute Code(s): N12 - TUBULO-INTERSTITIAL NEPHRITIS, NOT SPCF ACUTE OR CHRONIC SNOMED Code(s): 924569638 Plan: 1patient is 82-year-old female presenting to the hospital with intractable nausea and vomiting in this patient who was recently admitted to this facility from 05/25/2023 till 05/30/2023 at that point the patient did have a negative urine culture peritoneal fluid was negative blood culture negative there was initial concern for possible left-sided emphysematous pyelitis versus renal abscess repeat CT was reported negative now presenting back to the hospital with intractable vomiting questionable related to the left kidney infection versus PD catheter associated peritonitis 2peritoneal fluid is clear that we will rule out PD catheter assocaited peritonitis. 3IR has been consulted for possible aspirate of the left kidney want the patient to be off anticoagulation before the attempted to the procedure. 4patient has shown clinical improvement and the patient white count is trendin g down, patient continue with Rocephin and possible IV antibiotics on discharge Dictation was produced using [employer] dict[employer] software. please excuse any grammatical, word or spelling errors. Time with Patient: Less than 30
[2023-06-05] MEDS: ATORVASTATIN 40 MG TAB PO SCH (20:12)
[2023-06-05] MEDS: PANTOPRAZOLE 40 MG TABLET PO SCH (20:12)
[2023-06-06] MEDS: DIALYSIS (PERIT 1.5%) 2,000 ML 27 G/1,800 ML BAG INTRAPERIT SCH ×4 (05:45→23:45)
[2023-06-06 07:05] LABS: HCT 29.9 % (34.0-46.0); HGB 9.6 gm/dL (11.4-16.0); MCH 30.3 pg (25.0-35.0); MCHC 32.3 g/dL (31.0-37.0); MCV 93.8 fL (80.0-100.0); Mean Platelet Volume 8.3; Platelet Count 428 k/uL (150-450); RBC 3.18 m/uL (3.80-5.40); RDW 15.5 % (11.5-15.5); WBC 13.9 k/uL (3.8-10.6)
[2023-06-06 07:21] LABS: African American GFR (CKD) 11 (>60 ml/min/1.73 sqM); Anion Gap 10 mmol/L; Blood Urea Nitrogen 24 mg/dL (7-17); Calcium 8.6 mg/dL (8.4-10.2); Carbon Dioxide 26 mmol/L (22-30); Chloride 98 mmol/L (98-107); Glucose 81 mg/dL (74-99); Non-African American GFR(CKD) 10 (>60 ml/min/1.73 sqM); Potassium 3.6 mmol/L (3.5-5.1); Sodium 134 mmol/L (137-145)
[2023-06-06] MEDS: hydrOXYzine HCL 10 MG TAB PO SCH ×2 (07:59→20:21)
[2023-06-06] MEDS: allopurinoL 100 MG TAB PO SCH ×2 (07:59→20:20)
[2023-06-06] MEDS: CALCIUM ACETATE 667 MG TAB PO SCH ×2 (07:59→17:41)
[2023-06-06] MEDS: SODIUM BICARBONATE TAB 650 MG TAB PO SCH ×2 (07:59→20:20)
[2023-06-06] MEDS: CHOLECALCIFEROL 25 MCG (1000 IU) TABLET PO SCH ×2 (07:59→20:20)
[2023-06-06] MEDS: METOPROLOL TARTRATE 50 MG TAB PO SCH ×2 (07:59→20:20)
--- NOTE | 2023-06-06 10:14 | P.PN ---
Subjective Progress Note Date: 06/06/23 Patient is an 82-year-old female with end-stage renal disease on peritoneal dialysis, hypertension, and dyslipidemia who presented to the ER with nausea and vomiting. Patient was initially hospitalized here from 05/25 through 05/30 for renal ascess with sepsis when she was discharged home on Augmentin. On arrival to the ER this time her white blood focal was 37.4, hemoglobin 10.8, and BNP was consistent with peritoneal dialysis. She has admitted for worsening sepsis had failed outpatient treatment of renal abscess. She was started on Rocephin and arrangements were made for admission. Infectious disease and nephrology were consulted. She was continued on Rocephin. Peritoneal fluid was not consistent with infection. IR was consulted for possible biopsy, however the patient had been on aspirin they recommended doing this for 5 days prior to biopsy. Patient went into atrial fibrillation with rapid ventricular response and her atenolol was discontinued and metoprolol 25 mg 3 times daily was initiated. Cardiology was consulted. She underwent an echocardiogram which showed an ejection fraction of 55-60% with trace to moderate mitral, tricuspid, and aortic regurgitation. Her WBC continued to improve. Patient seen and examined at bedside. Doing well, PD is going well, no complaints. Vital signs reviewed General: nontoxic, no distress, appears at stated age Cardiovascular: S1S2 reg, no murmur, positive posterior tibial pulse bilateral, Lungs: Decreased bs bilateral, no rhonchi, no rales , no accessory muscle use Abdominal: soft, nontender to palpation, no guarding, no appreciable organomegaly Ext: no gross muscle atrophy, no edema b/l lower extremities, no contractures Neuro: CN II-XI grossly intact, no focal neuro deficits Psych: Alert, oriented, appropriate affect Assessment/Plan: Suspected left renal cortical abscess/polynephritis Sepsis -Rocephin 2 g IVPB D #6 - Aspirin and Eliquis on hold for renal aspirate today - Infectious disease note reviewed from 06/05/23: Continue with Rocephin, await kidney aspirate. - blood cultures negative to date. - follow CBC to monitor infection ESRD on peritoneal dialysis Anemia of ESRD -Nephrology note reviewed from 06/05/23: Continue with IV iron, maintain current PD exchanges - Sodium Bicarb 650 mg BID - No signs of peritonitis - Ferric gluconate 125 mcg daily D#3 - repeat BMP in AM to ensure effective PD Paroxysmal atrial fibrillation with rapid ventricular response, now in normal sinus rhythm Hypertension Dyslipidemia Valvular heart disease with aortic, mitral, and tricuspid regurgitation -Cardiology note reviewed: Stable for discharge home when okay with primary infectious disease, follow up with Dr. Roca. - Lopressor 50 mg BID - Eliquis 2.5 mg twice daily on hold due to need for renal biopsy and now in NSR - Lipitor 40 mg at night - Aspirin on hold due to possible renal biopsy. Resolved: Lactic acidosis Hypomagnesemia Hypokalemia Chronic: Hypertension Dyslipidemia Gout Imaging: None new Data Review: Labs reviewed from today include CBC and basic metabolic profile which are remarkable for white blood cell count 13.9, hemoglobin 9.6, sodium 134, BUN 24, creatinine 4.01 DVT prophylaxis: SCDs Anticipated discharge date: in 1-[address]: home with home health This dictation was prepared using [employer] voice recognition software. Though every attempt is made to correct errors during dictation some may still exist. Objective - Vital Signs Vital signs: Vital Signs Temp 97.7 F 06/06/23 07:13 Pulse 67 06/06/23 07:13 Resp 16 06/06/23 07:13 BP 129/67 06/06/23 07:13 Pulse Ox 95 06/06/23 07:13 FiO2 Intake & Output 06/05/23 06/06/23 06/06/23 18:59 06:59 18:59 Intake Total 300 Balance 300 Intake: Oral 300 Other: Voiding Method Toilet Toilet CAPD CAPD # Voids 1 2 - Labs CBC & Chem 7: 06/06/23 06:30 06/06/23 06:30 Labs: Abnormal Lab Results - Last 24 Hours (Table) 06/06/23 06/06/23 Range/Units 06:30 06:30 WBC 13.9 H (3.8-10.6) k/uL RBC 3.18 L (3.80-5.40) m/uL Hgb 9.6 L (11.4-16.0) gm/dL Hct 29.9 L (34.0-46.0) % Sodium 134 L (137-145) mmol/L BUN 24 H (7-17) mg/dL Creatinine 4.01 H (0.52-1.04) mg/dL Microbiology - Last 24 Hours (Table) 06/02/23 12:45 Gram Stain - Preliminary Peritoneal Fluid Body Fluid Culture - Preliminary
[2023-06-06] MEDS: SODIUM FERRIC GLUCONAT-SUCROSE 125 MG in SODIUM CHLORIDE 0.9% 100 ML IVPB SCH (10:42)
--- NOTE | 2023-06-06 11:16 | CT ---
EXAMINATION TYPE: CT guided aspiration DATE OF EXAM: 06/06/2023 COMPARISON: 05/29/2023 HISTORY: Request for left renal infected renal cyst FNA CT DLP: [id number] mGycm The procedure is discussed with the patient, the risks, complications, benefits and alternatives, wer e discussed and any questions were answered. Informed consent was obtained. The patient is placed p lexis on the CT table, prepped and draped in the usual sterile fashion. Utilizing a 22-gauge Chiba needle access into the right renal cyst achieved with a single pass made a nd approximately 25 cc of purulent material aspirated. Pathology confirmed adequate sample. All yang ments of maximal barrier technique were utilized. The patient remained stable throughout the procedu re with no immediate postprocedural complication. IMPRESSION: 1. Successful CT guided fine needle aspiration of requested suspected infected left renal cyst
--- NOTE | 2023-06-06 11:51 | P.PN ---
Subjective Progress Note Date: 06/06/23 Principal diagnosis: Leukocytosis/Emphysematous pyelonephritis Patient is a 82-year-old female with a past medical history Beeghly for hypertension hyperlipidemia end-stage renal disease on peritoneal dialysis CVA TIA patient was recently admitted at this facility and there was concern for possible left renal abscess versus emphysematous pyelitis with a follow-up CT n egative for abscess discharge on oral antibiotic presented to the hospital with intractable nausea and vomiting and elevated white count. Patient is status post CT-guided aspirate of the left kidney area with the drainage of 25 mL of purulent material which has been cultured on 06/06/2023 On today's evaluation that is 06/06/2023, the patient remains to be afebrile, the patient is breathing comfortably on room air , the patient denies any chest pain or cough and no sputum production, patient denies nausea/vomiting or diarrhea , no abdominal pain Patient did have a white count is down to 13.9, creatinine 4.01 peritoneal fluid was clear with only 13 WBC blood cultures currently pending. Objective - Vital Signs Vital signs: Vital Signs Temp 97.7 F 06/06/23 07:13 Pulse 67 06/06/23 07:13 Resp 16 06/06/23 07:13 BP 129/67 06/06/23 07:13 Pulse Ox 95 06/06/23 07:13 FiO2 Intake & Output 06/05/23 06/06/23 06/06/23 18:59 06:59 18:59 Intake Total 300 Balance 300 Intake: Oral 300 Other: Voiding Method Toilet Toilet CAPD CAPD # Voids 1 2 - Exam GENERAL DESCRIPTION: Elderly female lying in bed in no distress RESPIRATORY SYSTEM: Unlabored breathing , coarse breath sounds bilaterally HEART: S1 S2 regular rate and rhythm ,no loud murmurs ABDOMEN: Soft , no tenderness EXTREMITIES: No edema feet - Labs CBC & Chem 7: 06/06/23 06:30 06/06/23 06:30 Labs: Abnormal Lab Results - Last 24 Hours (Table) 06/06/23 06/06/23 Range/Units 06:30 06:30 WBC 13.9 H (3.8-10.6) k/uL RBC 3.18 L (3.80-5.40) m/uL Hgb 9.6 L (11.4-16.0) gm/dL Hct 29.9 L (34.0-46.0) % Sodium 134 L (137-145) mmol/L BUN 24 H (7-17) mg/dL Creatinine 4.01 H (0.52-1.04) mg/dL Microbiology - Last 24 Hours (Table) 06/02/23 12:45 Gram Stain - Preliminary Peritoneal Fluid Body Fluid Culture - Preliminary 06/01/23 18:50 Blood Culture - Preliminary Blood 06/01/23 18:35 Blood Culture - Preliminary Blood Assessment and Plan (1) Leukocytosis Current Visit: Yes Status: Acute Code(s): D72.829 - ELEVATED WHITE BLOOD CELL COUNT, UNSPECIFIED SNOMED Code(s): 047879595 (2) Emphysematous pyelonephritis Current Visit: No Status: Acute Code(s): N12 - TUBULO-INTERSTITIAL NEPHRITIS, NOT SPCF ACUTE OR CHRONIC SNOMED Code(s): 209075881 Plan: 1patient is 82-year-old female presenting to the hospital with intractable nausea and vomiting in this patient who was recently admitted to this facility from 05/25/2023 till 05/30/2023 at that point the patient did have a negative urine culture peritoneal fluid was negative blood culture negative there was initial concern for possible left-sided emphysematous pyelitis versus renal abscess repeat CT was reported negative now presenting back to the ostal with intractable vomiting questionable related to the left kidney infection versus PD catheter associated peritonitis 2peritoneal fluid is clear that we will rule out PD catheter assocaited p eritonitis. 3patient is status post IR drainage of the left renal area with drainage of purulent material confirming the abscess 4-patient will get a midline and plan for at least 3-4 weeks of IV Rocephin depending upon clinical response Dictation was produced using [employer] dictation software. please excuse any grammatical, word or spelling errors. Time with Patient: Less than 30
--- NOTE | 2023-06-06 13:07 | P.PN ---
Subjective Patient is seen for follow-up for end-stage renal disease. She has just returned from radiology for CT-guided aspiration of left renal cyst. 25 mL of purulent material was aspirated. No drain placed. Patient feels well with no significant complaints. Tolerated oral intake. Objective - Vital Signs Vital signs: Vital Signs Temp 97.8 F 06/06/23 12:33 Pulse 74 06/06/23 12:33 Resp 18 06/06/23 12:33 BP 130/83 06/06/23 12:33 Pulse Ox 95 06/06/23 12:33 FiO2 Intake & Output 06/05/23 06/06/23 06/06/23 18:59 06:59 18:59 Intake Total 300 Balance 300 Intake: Oral 300 Other: Voiding Method Toilet Toilet Toilet CAPD CAPD CAPD # Voids 1 2 - Exam Patient is awake, comfortable, no acute distress She appears euvolemic with no evidence of edema in the lower extremities. Abdomen is soft nontender [employer] exam grossly intact - Labs CBC & Chem 7: 06/06/23 06:30 06/06/23 06:30 Labs: Abnormal Lab Results - Last 24 Hours (Table) 06/06/23 06/06/23 Range/Units 06:30 06:30 WBC 13.9 H (3.8-10.6) k/uL RBC 3.18 L (3.80-5.40) m/uL Hgb 9.6 L (11.4-16.0) gm/dL Hct 29.9 L (34.0-46.0) % Sodium 134 L (137-145) mmol/L BUN 24 H (7-17) mg/dL Creatinine 4.01 H (0.52-1.04) mg/dL Microbiology - Last 24 Hours (Table) 06/02/23 12:45 Gram Stain - Preliminary Peritoneal Fluid Body Fluid Culture - Preliminary Assessment and Plan Assessment: 1. End-stage renal disease maintained on peritoneal dialysis. 2. UTI maintained on antibiotics. Questionable renal abscess. Status post CT- guided drainage of about 25 mL of purulent fluid 06/06/2023. ID following. Dialysate WBC count 13. 3. Chronic kidney disease mineral bone disease maintained on calcitriol. Phosphorus level 5.0 dated 06/02/2023. On PhosLo. 4. Metabolic acidosis secondary to chronic kidney disease maintained on oral bicarbonate. 5. Anemia of chronic kidney disease. Iron deficiency noted. 6. Hypomagnesemia from poor intake. Replaced. Better. 7. Hypokalemia from poor intake and PD losses. Plan: Okay to proceed with PICC line in the dominant arm Continue with current PD exchanges Antibiotics as per ID
[2023-06-06] MEDS: ATORVASTATIN 40 MG TAB PO SCH (20:20)
[2023-06-06] MEDS: PANTOPRAZOLE 40 MG TABLET PO SCH (20:20)
[2023-06-07 03:18] LABS: Appearance,BF Turbid (Clear)
[2023-06-07 05:44] LABS: T. Protein, Body Fluid Source Other; Total Protein, Body Fluid 2740 mg/dL
[2023-06-07] MEDS: DIALYSIS (PERIT 1.5%) 2,000 ML 27 G/1,800 ML BAG INTRAPERIT SCH ×4 (06:16→23:36)
[2023-06-07] MEDS: SODIUM BICARBONATE TAB 650 MG TAB PO SCH ×2 (08:37→20:11)
[2023-06-07] MEDS: CALCIUM ACETATE 667 MG TAB PO SCH ×2 (08:37→17:23)
[2023-06-07] MEDS: CHOLECALCIFEROL 25 MCG (1000 IU) TABLET PO SCH ×2 (08:37→20:11)
[2023-06-07] MEDS: allopurinoL 100 MG TAB PO SCH ×2 (08:37→20:11)
[2023-06-07] MEDS: METOPROLOL TARTRATE 50 MG TAB PO SCH ×2 (08:37→20:11)
[2023-06-07] MEDS: hydrOXYzine HCL 10 MG TAB PO SCH ×2 (08:38→20:11)
[2023-06-07] MEDS: SODIUM FERRIC GLUCONAT-SUCROSE 125 MG in SODIUM CHLORIDE 0.9% 100 ML IVPB SCH (09:22)
[2023-06-07 10:56] LABS: HCT 30.2 % (34.0-46.0); HGB 9.8 gm/dL (11.4-16.0); MCH 30.6 pg (25.0-35.0); MCHC 32.4 g/dL (31.0-37.0); MCV 94.5 fL (80.0-100.0); Mean Platelet Volume 7.9; Platelet Count 425 k/uL (150-450); RBC 3.19 m/uL (3.80-5.40); RDW 15.5 % (11.5-15.5); WBC 14.5 k/uL (3.8-10.6)
[2023-06-07 11:13] LABS: African American GFR (CKD) 13 (>60 ml/min/1.73 sqM); Anion Gap 11 mmol/L; Blood Urea Nitrogen 21 mg/dL (7-17); Calcium 8.8 mg/dL (8.4-10.2); Carbon Dioxide 24 mmol/L (22-30); Chloride 97 mmol/L (98-107); Glucose 126 mg/dL (74-99); Non-African American GFR(CKD) 11 (>60 ml/min/1.73 sqM); Sodium 132 mmol/L (137-145)
[2023-06-07 11:22] LABS: Potassium 3.8 mmol/L (3.5-5.1)
--- NOTE | 2023-06-07 12:14 | P.PN ---
Subjective Progress Note Date: 06/07/23 Principal diagnosis: Leukocytosis/Emphysematous pyelonephritis Patient is a 82-year-old female with a past medical history Beeghly for hypertension hyperlipidemia end-stage renal disease on peritoneal dialysis CVA TIA patient was recently admitted at this facility and there was concern for possible left renal abscess versus emphysematous pyelitis with a follow-up CT n egative for abscess discharge on oral antibiotic presented to the hospital with intractable nausea and vomiting and elevated white count. Patient is status post CT-guided aspirate of the left kidney area with the drainage of 25 mL of purulent material which has been cultured on 06/06/2023 On today's evaluation that is 06/07/2023, the patient continues to be afebrile, the patient is breathing comfortably on room air and no need for supplemental oxygen, the patient denies any chest pain , did have occasional dry cough , patient denies nausea/vomiting or diarrhea , no abdominal pain, feeling better Patient did have a white count is slightly up to 14.5 daily, creatinine is 3.67, peritoneal fluid was clear with only 13 WBC blood cultures currently pending. Objective - Vital Signs Vital signs: Vital Signs Temp 97.7 F 06/07/23 07:49 Pulse 77 06/07/23 07:49 Resp 16 06/07/23 07:49 BP 125/81 06/07/23 07:49 Pulse Ox 95 06/07/23 07:49 FiO2 Intake & Output 06/06/23 06/07/23 06/07/23 18:59 06:59 18:59 Intake Total 120 Balance 120 Intake: Oral 120 Other: Voiding Method Toilet Toilet Toilet CAPD CAPD CAPD # Voids 1 2 - Exam GENERAL DESCRIPTION: Elderly female lying in bed in no distress RESPIRATORY SYSTEM: Unlabored breathing , coarse breath sounds bilaterally HEART: S1 S2 regular rate and rhythm ,no loud murmurs ABDOMEN: Soft , no tenderness EXTREMITIES: No edema feet - Labs CBC & Chem 7: 06/07/23 10:33 06/07/23 10:33 Labs: Abnormal Lab Results - Last 24 Hours (Table) 06/06/23 Range/Units 10:30 Fluid Appearance Turbid A (Clear) Microbiology - Last 24 Hours (Table) 06/02/23 12:45 Gram Stain - Final Peritoneal Fluid Body Fluid Culture - Final 06/06/23 10:30 Gram Stain - Preliminary Aspirate 06/01/23 18:50 Blood Culture - Final Blood 06/01/23 18:35 Blood Culture - Final Blood Assessment and Plan (1) Leukocytosis Current Visit: Yes Status: Acute Code(s): D72.829 - ELEVATED WHITE BLOOD CELL COUNT, UNSPECIFIED SNOMED Code(s): 257895274 (2) Emphysematous pyelonephritis Current Visit: No Status: Acute Code(s): N12 - TUBULO-INTERSTITIAL NEPHRITIS, NOT SPCF ACUTE OR CHRONIC SNOMED Code(s): 005193646 Plan: 1patient is 82-year-old female presenting to the hospital with intractable nausea and vomiting in this patient who was recently admitted to this facility from 05/25/2023 till 05/30/2023 at that point the patient did have a negative urine culture peritoneal fluid was negative blood culture negative there was initial concern for possible left-sided emphysematous pyelitis versus renal abscess repeat CT was reported negative now presenting back to the hosp [facility] with intractable vomiting questionable related to the left kidney infection versus PD catheter associated peritonitis 2peritoneal fluid is clear that we will rule out PD catheter assocaited marc tonitis. 3patient is status post IR drainage of the left renal area with drainage of purulent material confirming the abscess, with the cultures currently pending 4-patient to continue with the Rocephin 2 g daily and plan for at least 3-4 weeks of IV Rocephin depending upon clinical response and close outpatient follow-up Dictation was produced using [employer] dictation software. please excuse any grammatical, word or spelling errors. Time with Patient: Less than 30
--- NOTE | 2023-06-07 16:01 | P.PN ---
Subjective Progress Note Date: 06/07/23 (delayed charting seen at 0845) Patient is an 82-year-old female with end-stage renal disease on peritoneal dialysis, hypertension, and dyslipidemia who presented to the ER with nausea and vomiting. Patient was initially hospitalized here from 05/25 through 05/30 for renal ascess with sepsis when she was discharged home on Augmentin. On arrival to the ER this time her white blood focal was 37.4, hemoglobin 10.8, and BNP was consistent with peritoneal dialysis. She has admitted for worsening sepsis had failed outpatient treatment of renal abscess. She was started on Rocephin and arrangements were made for admission. Infectious disease and nephrology were consulted. She was continued on Rocephin. Peritoneal fluid was not consistent with infection. IR was consulted for possible biopsy, however the patient had been on aspirin they recommended doing this for 5 days prior to biopsy. Patient went into atrial fibrillation with rapid ventricular response and her atenolol was discontinued and metoprolol 25 mg 3 times daily was initiated. Cardiology was consulted. She underwent an echocardiogram which showed an ejection fraction of 55-60% with trace to moderate mitral, tricuspid, and aortic regurgitation. Her WBC continued to improve. On 06/[address] guided aspiration of infected left renal cysts with 25 mL of purulent material aspirated. Patient seen and examined at bedside. She states that the drainage was much less intense than she thought it would be yesterday. She is feeling well today. PD exchanges continue to go well. She denies any constipation. Vital signs reviewed General: nontoxic, no distress, appears at stated age Cardiovascular: S1S2 reg, no murmur, positive posterior tibial pulse bilateral, Lungs: Decreased bs bilateral, no rhonchi, no rales , no accessory muscle use Abdominal: soft, nontender to palpation, no guarding, no appreciable organomegaly Ext: no gross muscle atrophy, no edema b/l lower extremities, no contractures Neuro: CN II-XI grossly intact, no focal neuro deficits Psych: Alert, oriented, appropriate affect Assessment/Plan: Suspected left renal cortical abscess/polynephritis Sepsis -Rocephin 2 g IVPB D #7 - resume aspirin 81 mg daily, and Eliquis 2.5 mg twice daily -Case discussed with Dr. Murguia plan is for 3-4 weeks of IV Rocephin as outpatient. Midline cath placed. - blood cultures negative - follow CBC to monitor infection ESRD on peritoneal dialysis Anemia of ESRD - await further nephrology recs. - Sodium Bicarb 650 mg BID - No signs of peritonitis - s/p Ferric gluconate 125 mcg - repeat BMP in AM to ensure effective PD Paroxysmal atrial fibrillation with rapid ventricular response, now in normal sinus rhythm Hypertension Dyslipidemia Valvular heart disease with aortic, mitral, and tricuspid regurgitation -Cardiology recs: follow up with Dr. Roca. - Lopressor 50 mg BID - Eliquis 2.5 mg twice daily - Lipitor 40 mg at night Resolved: Lactic acidosis Hypomagnesemia Hypokalemia Chronic: Hypertension Dyslipidemia Gout Imaging: None new Data Review: Labs reviewed from today include CBC and basic metabolic profile as well as fluid analysis from left kidney drainage which are remarkable for white blood cell count 14.5, hemoglobin 9.8, sodium 132, BUN 21, creatinine 3.65 in. Aspirated fluid consistent with hospice with white blood cells 183,100 and red blood cells 300,000 Initial Gram stain showed many PMNs with no organisms DVT prophylaxis: SCDs Anticipated discharge date: in 1-[address]: home with home health This dictation was prepared using [employer] voice recognition software. Though every attempt is made to correct errors during dictation some may still exist. Objective - Vital Signs Vital signs: Vital Signs Temp 97.3 F L 06/07/23 13:51 Pulse 89 06/07/23 13:51 Resp 16 06/07/23 13:51 BP 132/84 06/07/23 13:51 Pulse Ox 92 L 06/07/23 13:51 FiO2 Intake & Output 06/06/23 06/07/23 06/07/23 18:59 06:59 18:59 Intake Total 120 200 Balance 120 200 Intake: Oral 120 200 Other: Voiding Method Toilet Toilet Toilet CAPD CAPD CAPD # Voids 1 2 - Labs CBC & Chem 7: 06/07/23 10:33 06/07/23 10:33 Labs: Abnormal Lab Results - Last 24 Hours (Table) 06/06/23 06/07/23 06/07/23 Range/Units 10:30 10:33 10:33 WBC 14.5 H (3.8-10.6) k/uL RBC 3.19 L (3.80-5.40) m/uL Hgb 9.8 L (11.4-16.0) gm/dL Hct 30.2 L (34.0-46.0) % Sodium 132 L (137-145) mmol/L Chloride 97 L (98-107) mmol/L BUN 21 H (7-17) mg/dL Creatinine 3.67 H (0.52-1.04) mg/dL Glucose 126 H (74-99) mg/dL Fluid Appearance Turbid A (Clear) Microbiology - Last 24 Hours (Table) 06/02/23 12:45 Gram Stain - Final Peritoneal Fluid Body Fluid Culture - Final 06/06/23 10:30 Gram Stain - Preliminary Aspirate 06/01/23 18:50 Blood Culture - Final Blood 06/01/23 18:35 Blood Culture - Final Blood
[2023-06-07] MEDS: PANTOPRAZOLE 40 MG TABLET PO SCH (20:11)
[2023-06-07] MEDS: ATORVASTATIN 40 MG TAB PO SCH (20:11)
[2023-06-07] MEDS: APIXABAN 2.5 MG TABLET PO SCH (20:11)
[2023-06-08 01:33] LABS: LDH, Body Fluid Source Other
[2023-06-08] MEDS: DIALYSIS (PERIT 1.5%) 2,000 ML 27 G/1,800 ML BAG INTRAPERIT SCH ×3 (05:40→18:13)
[2023-06-08 07:05] LABS: HCT 30.3 % (34.0-46.0); HGB 9.8 gm/dL (11.4-16.0); MCH 30.5 pg (25.0-35.0); MCHC 32.4 g/dL (31.0-37.0); MCV 94.3 fL (80.0-100.0); Mean Platelet Volume 8.2; Platelet Count 464 k/uL (150-450); RBC 3.22 m/uL (3.80-5.40); RDW 15.5 % (11.5-15.5)
[2023-06-08 07:13] LABS: African American GFR (CKD) 12 (>60 ml/min/1.73 sqM); Anion Gap 10 mmol/L; Blood Urea Nitrogen 19 mg/dL (7-17); Calcium 8.8 mg/dL (8.4-10.2); Carbon Dioxide 25 mmol/L (22-30); Chloride 98 mmol/L (98-107); Glucose 83 mg/dL (74-99); Non-African American GFR(CKD) 10 (>60 ml/min/1.73 sqM); Potassium 3.2 mmol/L (3.5-5.1); Sodium 133 mmol/L (137-145)
[2023-06-08] MEDS: ONDANSETRON 4 MG TAB PO PRN ×2 (09:14→17:48)
[2023-06-08] MEDS: CHOLECALCIFEROL 25 MCG (1000 IU) TABLET PO SCH ×2 (09:15→21:00)
[2023-06-08] MEDS: METOPROLOL TARTRATE 50 MG TAB PO SCH ×2 (09:15→21:00)
[2023-06-08] MEDS: ASPIRIN 81 MG PO SCH (09:15)
[2023-06-08] MEDS: APIXABAN 2.5 MG TABLET PO SCH ×2 (09:15→21:00)
[2023-06-08] MEDS: CALCIUM ACETATE 667 MG TAB PO SCH ×2 (09:15→17:47)
[2023-06-08] MEDS: allopurinoL 100 MG TAB PO SCH ×2 (09:15→21:00)
[2023-06-08] MEDS: POTASSIUM CHLORIDE ER 20 MEQ TAB.ER PO STA ×4 (09:15→16:18)
[2023-06-08] MEDS: hydrOXYzine HCL 10 MG TAB PO SCH ×2 (09:15→21:01)
[2023-06-08] MEDS: SODIUM BICARBONATE TAB 650 MG TAB PO SCH ×2 (09:15→21:00)
--- NOTE | 2023-06-08 12:19 | P.PN ---
Subjective Patient is seen for follow-up for end-stage renal disease. She has just returned from radiology for CT-guided aspiration of left renal cyst. 25 mL of purulent material was aspirated. No drain placed. Patient feels well with no significant complaints. Tolerated oral intake. Complain of nausea on and off Objective - Vital Signs Vital signs: Vital Signs Temp 97 F L 06/08/23 07:45 Pulse 80 06/08/23 07:45 Resp 16 06/08/23 07:45 BP 118/79 06/08/23 07:45 Pulse Ox 96 06/08/23 07:45 FiO2 Intake & Output 06/07/23 06/08/23 06/08/23 18:59 06:59 18:59 Intake Total 740 120 Balance 740 120 Intake: Oral 740 120 Other: Voiding Method Toilet Toilet Toilet CAPD CAPD CAPD # Voids 1 - Exam Patient is awake, comfortable, no acute distress She appears euvolemic with no evidence of edema in the lower extremities. Abdomen is soft nontender [employer] exam grossly intact - Labs CBC & Chem 7: 06/08/23 06:04 06/08/23 06:04 Labs: Abnormal Lab Results - Last 24 Hours (Table) 06/08/23 06/08/23 Range/Units 06:04 06:04 WBC 13.0 H (3.8-10.6) k/uL RBC 3.22 L (3.80-5.40) m/uL Hgb 9.8 L (11.4-16.0) gm/dL Hct 30.3 L (34.0-46.0) % Plt Count 464 H (150-450) k/uL Sodium 133 L (137-145) mmol/L Potassium 3.2 L (3.5-5.1) mmol/L BUN 19 H (7-17) mg/dL Creatinine 3.94 H (0.52-1.04) mg/dL Microbiology - Last 24 Hours (Table) 06/06/23 10:30 Gram Stain - Preliminary Aspirate Body Fluid Culture - Preliminary Gram Neg Bacilli 06/06/23 10:30 Acid Fast Bacilli Smear - Preliminary Kidney 06/02/23 12:45 Gram Stain - Final Peritoneal Fluid Body Fluid Culture - Final Assessment and Plan Assessment: 1. End-stage renal disease maintained on peritoneal dialysis. 2. UTI maintained on antibiotics. Questionable renal abscess. Status post CT- guided drainage of about 25 mL of purulent fluid 06/06/2023. ID following. Dialysate WBC count 13. 3. Chronic kidney disease mineral bone disease maintained on calcitriol. Phosphorus level 5.0 dated 06/02/2023. On PhosLo. 4. Metabolic acidosis secondary to chronic kidney disease maintained on oral bicarbonate. 5. Anemia of chronic kidney disease. Iron deficiency noted. 6. Hypomagnesemia from poor intake. Replaced. Better. 7. Hypokalemia from poor intake and PD losses. Plan: Awaiting finalization of cultures Continue with current PD exchanges Antibiotics as per ID
--- NOTE | 2023-06-08 12:40 | P.PN ---
Subjective Progress Note Date: 06/08/23 Principal diagnosis: Leukocytosis/Emphysematous pyelonephritis Patient is a 82-year-old female with a past medical history Beeghly for hypertension hyperlipidemia end-stage renal disease on peritoneal dialysis CVA TIA patient was recently admitted at this facility and there was concern for possible left renal abscess versus emphysematous pyelitis with a follow-up CT n egative for abscess discharge on oral antibiotic presented to the hospital with intractable nausea and vomiting and elevated white count. Patient is status post CT-guided aspirate of the left kidney area with the drainage of 25 mL of purulent material which has been cultured on 06/06/2023 On today's evaluation that is 06/08/2023, the patient remains to be afebrile, the patient is breathing comfortably on room air and denies any shortness of breath, the patient denies any chest pain or cough , patient denies abdominal pain and no nausea/vomiting or diarrhea Patient did have a white count is down to 13,000, creatinine is 3.67, CT-guided aspirate of the left kidney is growing gram-negative however with ID sensitivities pending Objective - Vital Signs Vital signs: Vital Signs Temp 97 F L 06/08/23 07:45 Pulse 80 06/08/23 07:45 Resp 16 06/08/23 07:45 BP 118/79 06/08/23 07:45 Pulse Ox 96 06/08/23 07:45 FiO2 Intake & Output 06/07/23 06/08/23 06/08/23 18:59 06:59 18:59 Intake Total 740 120 Balance 740 120 Intake: Oral 740 120 Other: Voiding Method Toilet Toilet Toilet CAPD CAPD CAPD # Voids 1 - Exam GENERAL DESCRIPTION: Elderly female lying in bed in no distress RESPIRATORY SYSTEM: Unlabored breathing , coarse breath sounds bilaterally HEART: S1 S2 regular rate and rhythm ,no loud murmurs ABDOMEN: Soft , no tenderness EXTREMITIES: No edema feet - Labs CBC & Chem 7: 06/08/23 06:04 06/08/23 06:04 Labs: Abnormal Lab Results - Last 24 Hours (Table) 06/08/23 06/08/23 Range/Units 06:04 06:04 WBC 13.0 H (3.8-10.6) k/uL RBC 3.22 L (3.80-5.40) m/uL Hgb 9.8 L (11.4-16.0) gm/dL Hct 30.3 L (34.0-46.0) % Plt Count 464 H (150-450) k/uL Sodium 133 L (137-145) mmol/L Potassium 3.2 L (3.5-5.1) mmol/L BUN 19 H (7-17) mg/dL Creatinine 3.94 H (0.52-1.04) mg/dL Microbiology - Last 24 Hours (Table) 06/06/23 10:30 Gram Stain - Preliminary Aspirate Body Fluid Culture - Preliminary Gram Neg Bacilli 06/06/23 10:30 Acid Fast Bacilli Smear - Preliminary Kidney 06/02/23 12:45 Gram Stain - Final Peritoneal Fluid Body Fluid Culture - Final Assessment and Plan (1) Leukocytosis Current Visit: Yes Status: Acute Code(s): D72.829 - ELEVATED WHITE BLOOD CELL COUNT, UNSPECIFIED SNOMED Code(s): 454429045 (2) Emphysematous pyelonephritis Current Visit: No Status: Acute Code(s): N12 - TUBULO-INTERSTITIAL NEPHR ITIS, NOT SPCF ACUTE OR CHRONIC SNOMED Code(s): 041141357 Plan: 1patient is 82-year-old female presenting to the hospital with in tractable nausea and vomiting in this patient who was recently admitted to this facility from 05/25/2023 till 05/30/2023 at that point the patient did have a negative urine culture peritoneal fluid was negative blood culture negative there was initial concern for possible left-sided emphysematous pyelitis versus renal abscess repeat CT was reported negative now presenting back to the hospital with intractable vomiting questionable related to the left kidney infection versus PD catheter associated peritonitis 2peritoneal fluid is clear that we will rule out PD catheter assocaited peritonitis. 3patient is status post IR drainage of the left renal area with drainage of purulent material confirming the abscess, with the cultures currently growing gram-negative in addition status pending 4-patient to continue with the Rocephin 2 g daily and wait for the ID sensitivities on the gram-negative that is growing in the CT-guided aspirate of the left kidney to determine her discharge antibiotics Dictation was produced using [employer] dictation software. please excuse any grammatical, word or spelling errors. Time with Patient: Less than 30
--- NOTE | 2023-06-08 15:04 | P.PN ---
Subjective Progress Note Date: 06/08/23 (delayed charting seen at 0815) Patient is an 82-year-old female with end-stage renal disease on peritoneal dialysis, hypertension, and dyslipidemia who presented to the ER with nausea and vomiting. Patient was initially hospitalized here from 05/25 through 05/30 for renal ascess with sepsis when she was discharged home on Augmentin. On arrival to the ER this time her white blood focal was 37.4, hemoglobin 10.8, and BNP was consistent with peritoneal dialysis. She has admitted for worsening sepsis had failed outpatient treatment of renal abscess. She was started on Rocephin and arrangements were made for admission. Infectious disease and nephrology were consulted. She was continued on Rocephin. Peritoneal fluid was not consistent with infection. IR was consulted for possible biopsy, however the patient had been on aspirin they recommended doing this for 5 days prior to biopsy. Patient went into atrial fibrillation with rapid ventricular response and her atenolol was discontinued and metoprolol 25 mg 3 times daily was initiated. Cardiology was consulted. She underwent an echocardiogram which showed an ejection fraction of 55-60% with trace to moderate mitral, tricuspid, and aortic regurgitation. Her WBC continued to improve. On 06/[address] guided aspiration of infected left renal cysts with 25 mL of purulent material aspirated, Currently awaiting culture results. She had a midline placed. Patient seen and examined at bedside. She is having some nausea, no vomiting, no diarrhea. Doing well otherwise. She really wants to go home. She is aware that we need her cultures before she can be discharged. Vital signs reviewed General: nontoxic, no distress, appears at stated age Cardiovascular: S1S2 reg, no murmur, + posterior tibial pulse bilateral, Lungs: Decreased bs bilateral, no rhonchi, no rales , no accessory muscle use Abdominal: soft, nontender to palpation, no guarding, no appreciable organomegaly Ext: no gross muscle atrophy, no edema b/l lower extremities, no contractures Neuro: CN II-XI grossly intact, no focal neuro deficits Psych: Alert, oriented, appropriate affect Assessment/Plan: Left renal cortical abscess/polynephritis, emphysematous pyelitis Sepsis -Rocephin 2 g IVPB D #8 - Aspirin 81 mg daily, and Eliquis 2.5 mg twice daily - ID note reviewed: Await cultures to finalize and then will need 2-3 weeks of IV ABX. - blood cultures negative - follow CBC to monitor infection ESRD on peritoneal dialysis Anemia of ESRD - await further nephrology recs. - Sodium Bicarb 650 mg BID - No signs of peritonitis - s/p Ferric gluconate 125 mcg - repeat BMP in AM to ensure effective PD Paroxysmal atrial fibrillation with rapid ventricular response, now in normal si nus rhythm Hypertension Dyslipidemia Valvular heart disease with aortic, mitral, and tricuspid regurgitation -Cardiology recs: follow up with Dr. Roca. - Lopressor 50 mg BID - Eliquis 2.5 mg twice daily - Lipitor 40 mg at night Resolved: Lactic acidosis Hypomagnesemia Hypokalemia Chronic: Hypertension Dyslipidemia Gout Imaging: None new Data Review: Labs reviewed from today include CBC and basic metabolic profile which are remarkable for white blood cell count 13, hemoglobin 9.8, sodium 133, potassium 3.2 DVT prophylaxis: SCDs Anticipated discharge date: in 1-2 days, when culture results avaiable. Anticipated discharge place: home with home health This dictation was prepared using [employer] voice recognition software. Though every attempt is made to correct errors during dictation some may still exist. Objective - Vital Signs Vital signs: Vital Signs Temp 97.5 F L 06/08/23 13:41 Pulse 84 06/08/23 13:41 Resp 16 06/08/23 13:41 BP 117/87 06/08/23 13:41 Pulse Ox 98 06/08/23 13:41 FiO2 Intake & Output 06/07/23 06/08/23 06/08/23 18:59 06:59 18:59 Intake Total 740 120 Balance 740 120 Intake: Oral 740 120 Other: Voiding Method Toilet Toilet Toilet CAPD CAPD CAPD # Voids 1 - Labs CBC & Chem 7: 06/08/23 06:04 06/08/23 06:04 Labs: Abnormal Lab Results - Last 24 Hours (Table) 06/08/23 06/08/23 Range/Units 06:04 06:04 WBC 13.0 H (3.8-10.6) k/uL RBC 3.22 L (3.80-5.40) m/uL Hgb 9.8 L (11.4-16.0) gm/dL Hct 30.3 L (34.0-46.0) % Plt Count 464 H (150-450) k/uL Sodium 133 L (137-145) mmol/L Potassium 3.2 L (3.5-5.1) mmol/L BUN 19 H (7-17) mg/dL Creatinine 3.94 H (0.52-1.04) mg/dL Microbiology - Last 24 Hours (Table) 06/06/23 10:30 Gram Stain - Preliminary Aspirate Body Fluid Culture - Preliminary Gram Neg Bacilli 06/06/23 10:30 Acid Fast Bacilli Smear - Preliminary Kidney
[2023-06-08] MEDS ORDERED: POTASSIUM CHLORIDE ER 20 MEQ TAB.ER PO STA (16:10)
[2023-06-08 17:11] VITALS: BMI 30.7
--- NOTE | 2023-06-08 17:52 | P.PN ---
Subjective Patient is seen for follow-up for end-stage renal disease. She is/ s/p for CT-guided aspiration of left renal cyst. 25 mL of purulent material was aspirated. No drain placed. Patient feels well with no significant complaints. Tolerated oral intake. Complain of nausea on and off Objective - Vital Signs Vital signs: Vital Signs Temp 97.5 F L 06/08/23 13:41 Pulse 84 06/08/23 13:41 Resp 16 06/08/23 13:41 BP 117/87 06/08/23 13:41 Pulse Ox 98 06/08/23 13:41 FiO2 Intake & Output 06/07/23 06/08/23 06/08/23 18:59 06:59 18:59 Intake Total 761 661 5838 Balance 759 453 6738 Weight 81.193 kg Intake: Oral 483 929 6371 Other: Voiding Method Toilet Toilet Toilet CAPD CAPD CAPD # Voids 1 - Exam Patient is awake, comfortable, no acute distress She appears euvolemic with no evidence of edema in the lower extremities. 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 AND TRIMMER exam grossly intact - Labs CBC & Chem 7: 06/08/23 06:04 06/08/23 06:04 Labs: Abnormal Lab Results - Last 24 Hours (Table) 06/08/23 06/08/23 Range/Units 06:04 06:04 WBC 13.0 H (3.8-10.6) k/uL RBC 3.22 L (3.80-5.40) m/uL Hgb 9.8 L (11.4-16.0) gm/dL Hct 30.3 L (34.0-46.0) % Plt Count 464 H (150-450) k/uL Sodium 133 L (137-145) mmol/L Potassium 3.2 L (3.5-5.1) mmol/L BUN 19 H (7-17) mg/dL Creatinine 3.94 H (0.52-1.04) mg/dL Microbiology - Last 24 Hours (Table) 06/06/23 10:30 Gram Stain - Preliminary Aspirate Body Fluid Culture - Preliminary Gram Neg Bacilli 06/06/23 10:30 Acid Fast Bacilli Smear - Preliminary Kidney Assessment and Plan Assessment: 1. End-stage renal disease maintained on peritoneal dialysis. 2. UTI maintained on antibiotics. Questionable renal abscess. Status post CT- guided drainage of about 25 mL of purulent fluid 06/06/2023. ID following. Dialysate WBC count 13. 3. Chronic kidney disease mineral bone disease maintained on calcitriol. Phosphorus level 5.0 dated 06/02/2023. On PhosLo. 4. Metabolic acidosis secondary to chronic kidney disease maintained on oral bicarbonate. 5. Anemia of chronic kidney disease. Iron deficiency noted. 6. Hypomagnesemia from poor intake. Replaced. Better. 7. Hypokalemia from poor intake and PD losses. Plan: Awaiting finalization of cultures from aspirated fluid Continue with current PD exchanges Antibiotics as per ID
[2023-06-08] MEDS: ATORVASTATIN 40 MG TAB PO SCH (21:00)
[2023-06-08] MEDS: PANTOPRAZOLE 40 MG TABLET PO SCH (21:00)
[2023-06-09] MEDS ORDERED: ACETAMINOPHEN TAB 325 MG TAB PO PRN (00:01)
[2023-06-09] MEDS: DIALYSIS (PERIT 1.5%) 2,000 ML 27 G/1,800 ML BAG INTRAPERIT SCH ×3 (00:42→12:09)
[2023-06-09] MEDS: guaiFENesin SYRUP 100MG/5ML 200 MG/10 ML CUP PO PRN ×2 (01:19→12:20)
[2023-06-09] MEDS: ONDANSETRON 4 MG TAB PO PRN (06:18)
[2023-06-09 09:00] LABS: BUN/Creat Ratio 4.12 Ratio (12.00-20.00); Blood Urea Nitrogen 17.3 mg/dL (9.0-27.0); Calcium 9.1 mg/dL (8.7-10.3); Carbon Dioxide 26.9 mmol/L (21.6-31.8); Chloride 98 mmol/L (96-109); Glucose 82 mg/dL (70-110); Potassium 3.8 mmol/L (3.5-5.5); Sodium 137 mmol/L (135-145)
[2023-06-09 09:22] LABS: HCT 29.6 % (37.2-46.3); HGB 9.4 g/dL (12.0-15.0); MCH 29.9 pg (27.0-32.0); MCHC 31.8 g/dL (32.0-37.0); MCV 94.3 FL (80.0-97.0); Mean Platelet Volume 10.3 FL (9.5-12.2); NRBC Per 100 WBC 0 X 10*3/uL (0.00-0.01); Platelet Count 455 X 10*3/uL (140-440); RBC 3.14 X 10*6/uL (4.10-5.20); RDW 16.1 % (11.5-14.5); WBC 12.35 X 10*3/uL (4.50-10.00)
[2023-06-09] MEDS: ASPIRIN 81 MG PO SCH (09:41)
[2023-06-09] MEDS: SODIUM BICARBONATE TAB 650 MG TAB PO SCH (09:41)
[2023-06-09] MEDS: CALCIUM ACETATE 667 MG TAB PO SCH (09:41)
[2023-06-09] MEDS: allopurinoL 100 MG TAB PO SCH (09:42)
[2023-06-09] MEDS: CHOLECALCIFEROL 25 MCG (1000 IU) TABLET PO SCH (09:42)
[2023-06-09] MEDS: METOPROLOL TARTRATE 50 MG TAB PO SCH (09:42)
[2023-06-09] MEDS: hydrOXYzine HCL 10 MG TAB PO SCH (09:43)
[2023-06-09] MEDS: APIXABAN 2.5 MG TABLET PO SCH (09:45)
--- NOTE | 2023-06-09 11:20 | P.PN ---
Subjective Progress Note Date: 06/09/23 Principal diagnosis: Leukocytosis/Emphysematous pyelonephritis Patient is a 82-year-old female with a past medical history Beeghly for hypertension hyperlipidemia end-stage renal disease on peritoneal dialysis CVA TIA patient was recently admitted at this facility and there was concern for possible left renal abscess versus emphysematous pyelitis with a follow-up CT n egative for abscess discharge on oral antibiotic presented to the hospital with intractable nausea and vomiting and elevated white count. Patient is status post CT-guided aspirate of the left kidney area with the drainage of 25 mL of purulent material which has been cultured on 06/06/2023 On today's evaluation that is 06/09/2023, the patient denies any fever or any chills, the patient is breathing comfortably on room air and no need for supplemental oxygen, the patient denies any chest pain, cough or sputum production, patient denies abdominal pain and no nausea/vomiting and no diarrhea has been reported Patient did have a white count is down to 12.35, creatinine is 4.2, CT-guided aspirate of the left kidney is growing E. coli that is sensitive to ceftriaxone Objective - Vital Signs Vital signs: Vital Signs Temp 97.5 F L 06/09/23 07:16 Pulse 81 06/09/23 07:16 Resp 16 06/09/23 07:16 BP 115/77 06/09/23 07:16 Pulse Ox 95 06/09/23 07:16 FiO2 Intake & Output 06/08/23 06/09/23 06/09/23 18:59 06:59 18:59 Intake Total 1040 Balance 1040 Weight 81.193 kg Intake: Oral 1040 Other: Voiding Method Toilet Toilet CAPD CAPD - Exam GENERAL DESCRIPTION: Elderly female lying in bed in no distress RESPIRATORY SYSTEM: Unlabored breathing , coarse breath sounds bilaterally HEART: S1 S2 regular rate and rhythm ,no loud murmurs ABDOMEN: Soft , no tenderness EXTREMITIES: No edema feet - Labs CBC & Chem 7: 06/09/23 05:52 06/09/23 05:52 Labs: Abnormal Lab Results - Last 24 Hours (Table) 06/09/23 06/09/23 Range/Units 05:52 05:52 WBC 12.35 H (4.50-10.00) X 10*3/uL RBC 3.14 L (4.10-5.20) X 10*6/uL Hgb 9.4 L (12.0-15.0) g/dL Hct 29.6 L (37.2-46.3) % MCHC 31.8 L (32.0-37.0) g/dL RDW 16.1 H (11.5-14.5) % Plt Count 455 H (140-440) X 10*3/uL Anion Gap 12.10 H (4.00-12.00) mmol/L Creatinine 4.2 H (0.6-1.5) mg/dL Est GFR (CKD-EPI) 10 L (>=60) BUN/Creatinine Ratio 4.12 L (12.00-20.00) Ratio Microbiology - Last 24 Hours (Table) 06/06/23 10:30 Gram Stain - Preliminary Aspirate Body Fluid Culture - Preliminary Gram Neg Bacilli Assessment and Plan (1) Leukocytosis Current Visit: Yes Status: Acute Code(s): D72.829 - ELEVATED WHITE BLOOD CELL COUNT, UNSPECIFIED SNOMED Code(s): 531505835 (2) Emphysematous pyelonephritis Current Visit: No Status: Acute Code(s): N12 - TUBULO-INTERSTITIAL NEPHRITIS, NOT SPCF ACUTE OR CHRONIC SNOMED Code(s): 828716856 Plan: 1patient is 82-year-old female presenting to the hospital with intractable nausea and vomiting in this patient who was recently admitted to this facility from 05/25/2023 till 05/30/2023 at that point the patient did have a negative urine culture peritoneal fluid was negative blood culture negative there was initial concern for possible left-sided emphysematous pyelitis versus renal abscess repeat CT was reported negative now presenting back to the hospital with intractable vomiting questionable related to the left kidney infection versus PD catheter associated peritonitis 2patient is status post IR drainage of the left renal area with drainage of purulent material confirming the abscess, with the cultures currently growing E. coli that is sensitive to ceftriaxone 4-patient to continue with the Rocephin 2 g daily x 3 weeks on discharge and close outpatient follow-up, prescription provided to the immigration case manager Dictation was produced using [employer] software. please excuse any grammatical, word or spelling errors. Time with Patient: Less than 30
[2023-06-09] MEDS ORDERED: DIALYSIS (PERIT 2.5%) 2,000 ML 45 G/1,800 ML BAG INTRAPERIT SCH (12:00)
[2023-06-09 12:48] VITALS: BP 129/86; PULSE 82; RESP 18; TEMP 97.9
--- NOTE | 2023-06-09 13:34 | P.DS ---
Providers Date of admission: 06/01/23 20:15 Expected date of discharge: 06/09/23 Attending physician: Zuleyma Vang MD Consults: 06/01/23 20:15 Consult Physician Urgent Consulting Provider: Luz Marina Murguia Consult Reason/Comments: Urinary tract infection failed outpatient treatment of Augmentin Do you want consulting provider notified?: Yes 06/01/23 20:25 Consult Physician Urgent Consulting Provider: Edmundo Hernandez Consult Reason/Comments: peritoneal dialysis Do you want consulting provider notified?: Yes [facility] Course: Discharge Diagnosis: Left renal cortical abscess/polynephritis, emphysematous pyelitis Sepsis ESRD on peritoneal dialysis Anemia of ESRD Paroxysmal atrial fibrillation with rapid ventricular response Hypertension Dyslipidemia Valvular heart disease with aortic, mitral, and tricuspid regurgitation Lactic acidosis Hypomagnesemia Hypokalemia Hospital Course: Patient is an 82-year-old female with end-stage renal disease on peritoneal dialysis, hypertension, and dyslipidemia who presented to the ER with nausea and vomiting. Patient was initially hospitalized here from 05/25 through 05/30 for renal ascess with sepsis when she was discharged home on Augmentin. On arrival to the ER this time her white blood cell count was 37.4, hemoglobin 10.8, and BNP was consistent with peritoneal dialysis. She has admitted for worsening sepsis had failed outpatient treatment of renal abscess. She was started on Rocephin and arrangements were made for admission. Infectious disease and nephrology were consulted. She was continued on Rocephin. Peritoneal fluid was not consistent with infection. IR was consulted for possible biopsy, however the patient had been on aspirin they recommended doing this for 5 days prior to biopsy. Patient went into atrial fibrillation with rapid ventricular response and her atenolol was discontinued and metoprolol 25 mg 3 times daily was initiated. Cardiology was consulted. She underwent an echocardiogram which showed an ejection fraction of 55-60% with trace to moderate mitral, tricuspid, and aortic regurgitation. Her WBC continued to improve. On 06/[address] guided aspiration of infected left renal cysts with 25 mL of purulent material aspirated, cultures growing E. coli sensitive to ceftriaxone. She had a midline placed. Patient being discharged home on 3 weeks of ceftriaxone. Also going home on Eliquis. Patient seen and examined at bedside. Vital signs reviewed and stable. General: nontoxic, no distress, appears at stated age Cardiovascular: S1S2 reg, no murmur, + posterior tibial pulse bilateral, Lungs: Decreased bs bilateral, no rhonchi, no rales , no accessory muscle use Abdominal: soft, nontender to palpation, no guarding, no appreciable organomegaly Ext: no gross muscle atrophy, no edema b/l lower extremities, no contractures Neuro: CN II-XI grossly intact, no focal neuro deficits Psych: Alert, oriented, appropriate affect A total of 33 minutes of time were spent preparing this complex discharge summary. Patient was discharged on 06/09/23 at 12:53. Patient Condition at Discharge: Stable Plan - Discharge Summary Discharge Rx Participant: No New Discharge Prescriptions: New cefTRIAXone [Rocephin] 2,000 mg IVP Q24HR #21 each Aspirin 81 mg PO DAILY #60 tab Apixaban [Eliquis] 2.5 mg PO BID #60 tab Metoprolol Tartrate [Lopressor] 50 mg PO BID #90 tab Calcium Acetate [PhosLo] 667 mg PO BID-W/MEALS #60 tab Continue Omeprazole [PriLOSEC] 20 mg PO HS [place]-3 Fatty Acids/Fish Oil [Fish Oil 1,000 mg Softgel] 1,000 mg PO BID allopurinoL [Zyloprim] 100 mg PO BID Estrogens, Conjugated Cream [Premarin Vaginal Cream] 1 applicator VAGINAL MOWEFR Sodium Bicarbonate Tab 650 mg PO BID Ferrous Sulfate [Iron (65 MG Elemental)] 325 mg PO DAILY hydrOXYzine HCL [Atarax] 10 mg PO DAILY Cholecalciferol [Vitamin D3 (25 Mcg = 1000 Iu)] 25 mcg PO BID Rosuvastatin [Crestor] 20 mg PO HS hydrOXYzine HCL [Atarax] 20 mg PO HS calcitrioL [Calcitriol] 0.25 mcg PO MO Discontinued atenoloL [Tenormin] 25 mg PO BID Amoxic-Pot Clav 875-125Mg [Augmentin 875-125] 1 tab PO Q12HR 14 Days #28 tab Aspirin EC [Ecotrin] 325 mg PO DAILY No Action Liqua Martha Protein 1 dose PO BID Cranberry 4200mg 2 tab PO DAILY Discharge Medication List Newport-3 Fatty Acids/Fish Oil [Fish Oil 1,000 mg Softgel] 1,000 mg PO BID 05/11/14 [History] Omeprazole [PriLOSEC] 20 mg PO HS 05/11/14 [History] allopurinoL [Zyloprim] 100 mg PO BID 05/22/17 [History] Ferrous Sulfate [Iron (65 MG Elemental)] 325 mg PO DAILY 11/03/21 [History] Sodium Bicarbonate Tab 650 mg PO BID 11/03/21 [History] hydrOXYzine HCL [Atarax] 10 mg PO DAILY 11/03/21 [History] Cholecalciferol [Vitamin D3 (25 Mcg = 1000 Iu)] 25 mcg PO BID 09/15/22 [History] Rosuvastatin [Crestor] 20 mg PO HS 09/15/22 [History] Cranberry 4200mg 2 tab PO DAILY 05/24/23 [History] Estrogens, Conjugated Cream [Premarin Vaginal Cream] 1 applicator VAGINAL MOWEFR 05/24/23 [History] Liqua Martha Protein 1 dose PO BID 05/24/23 [History] calcitrioL [Calcitriol] 0.25 mcg PO MO 05/24/23 [History] hydrOXYzine HCL [Atarax] 20 mg PO HS 05/24/23 [History] Apixaban [Eliquis] 2.5 mg PO BID #60 tab 06/09/23 [Rx] Aspirin 81 mg PO DAILY #60 tab 06/09/23 [Rx] Calcium Acetate [PhosLo] 667 mg PO BID-W/MEALS #60 tab 06/09/23 [Rx] Metoprolol Tartrate [Lopressor] 50 mg PO BID #90 tab 06/09/23 [Rx] cefTRIAXone [Rocephin] 2,000 mg IVP Q24HR #21 each 06/09/23 [Rx] Follow up Appointment(s)/Referral(s): Cat Dobbs MD [STAFF PHYSICIAN] - 06/15/23 1:40 pm Kevyn Roca MD [STAFF PHYSICIAN] - 1 Week (Please call the office to schedule your follow up appointment.) Keith Riley DO [Primary Care Provider] - 06/21/23 2:20 pm Luz Marina Murguia MD [STAFF PHYSICIAN] - 06/13/23 2:30 pm Patient Instructions/Handouts: A-fib (Atrial Fibrillation) (DC), Dialysis Diet (DC), Peritoneal Dialysis Catheter Care (DC), Abscess (GEN) Activity/Diet/Wound Care/Special Instructions: Please see your Printed Circuit Layout Taper, ID, and club manager. Discharge Disposition: HOME WITH HOME HEALTH SERVICES
--- NOTE | 2023-06-09 14:27 | P.PN ---
Subjective Patient is seen for follow-up for end-stage renal disease. She is/ s/p for CT-guided aspiration of left renal cyst. 25 mL of purulent material was aspirated. No drain placed. Tolerated oral intake. Complain of cough today Objective - Vital Signs Vital signs: Vital Signs Temp 97.9 F 06/09/23 12:34 Pulse 82 06/09/23 12:34 Resp 18 06/09/23 12:34 BP 129/86 06/09/23 12:34 Pulse Ox 96 06/09/23 12:34 FiO2 Intake & Output 06/08/23 06/09/23 06/09/23 18:59 06:59 18:59 Intake Total 1040 Balance 1040 Weight 81.193 kg Intake: Oral 1040 Other: Voiding Method Toilet Toilet Toilet CAPD CAPD CAPD # Voids 1 # Bowel Movements 1 - Exam Patient is awake, comfortable, no acute distress Examination of the heart S1 and S2 Examination of the lungs shows bilateral is entry with no crackles Abdomen is soft nontender Examination of lower extremities shows edema 1+ bilaterally VOCATIONAL ED INSTRUCTOR exam grossly intact - Labs CBC & Chem 7: 06/09/23 05:52 06/09/23 05:52 Labs: Abnormal Lab Results - Last 24 Hours (Table) 06/09/23 06/09/23 Range/Units 05:52 05:52 WBC 12.35 H (4.50-10.00) X 10*3/uL RBC 3.14 L (4.10-5.20) X 10*6/uL Hgb 9.4 L (12.0-15.0) g/dL Hct 29.6 L (37.2-46.3) % MCHC 31.8 L (32.0-37.0) g/dL RDW 16.1 H (11.5-14.5) % Plt Count 455 H (140-440) X 10*3/uL Anion Gap 12.10 H (4.00-12.00) mmol/L Creatinine 4.2 H (0.6-1.5) mg/dL Est GFR (CKD-EPI) 10 L (>=60) BUN/Creatinine Ratio 4.12 L (12.00-20.00) Ratio Microbiology - Last 24 Hours (Table) 06/06/23 10:30 Gram Stain - Final Aspirate Body Fluid Culture - Final Escherichia coli Assessment and Plan Assessment: 1. End-stage renal disease maintained on peritoneal dialysis. 2. UTI maintained on antibiotics. Questionable renal abscess. Status post CT- guided drainage of about 25 mL of purulent fluid 06/06/2023. ID following. Dialysate WBC count 13. 3. Chronic kidney disease mineral bone disease maintained on calcitriol. Phosphorus level 5.0 dated 06/02/2023. On PhosLo. 4. Metabolic acidosis secondary to chronic kidney disease maintained on oral bicarbonate. 5. Anemia of chronic kidney disease. Iron deficiency noted. 6. Hypomagnesemia from poor intake. Replaced. Better. 7. Hypokalemia from poor intake and PD losses. 8. Mild volume overload Plan: Use at 2.5% solution for next exchange Okay for discharge from nephrology standpoint on antibiotics as per ID. Monitor weight and increase UF as needed post discharge.
[2023-06-09] MEDS ORDERED: DIALYSIS (PERIT 1.5%) 2,000 ML 27 G/1,800 ML BAG INTRAPERIT SCH (18:00)
== END 2023-06-09 16:45 | disposition home health service (06) | DRG 871 ==
LOC: EC 14:32 → 4SSUR 20:15 → 5NMEDONC 06-02 00:15
PROVIDERS: ADMIT Internal Medicine; ATTEND Internal Medicine
PROC: 3E1M39Z Irrigation of Peritoneal Cavity using Dialysate, Percutaneous Approach (ICD-10-PCS; 2023-06-02)
PROC: 05H933Z Insertion of Infusion Device into Right Brachial Vein, Percutaneous Approach (ICD-10-PCS; 2023-06-06)
PROC: 0TB13ZX Excision of Left Kidney, Percutaneous Approach, Diagnostic (ICD-10-PCS; principal; 2023-06-06 18:30)
PROC: 05HD33Z Insertion of Infusion Device into Right Cephalic Vein, Percutaneous Approach (ICD-10-PCS; 2023-06-08)
DX: A41.51 Sepsis due to Escherichia coli [E. coli] (principal); N15.1 Renal and perinephric abscess; N18.6 End stage renal disease; N12 Tubulo-interstitial nephritis, not specified as acute or chronic; I12.0 Hypertensive chronic kidney disease with stage 5 chronic kidney disease or end stage renal disease; I48.92 Unspecified atrial flutter; M89.8X9 Other specified disorders of bone, unspecified site; E78.5 Hyperlipidemia, unspecified; M10.9 Gout, unspecified; Z99.2 Dependence on renal dialysis; I48.0 Paroxysmal atrial fibrillation; Z79.01 Long term (current) use of anticoagulants; E87.6 Hypokalemia; E83.42 Hypomagnesemia; D63.1 Anemia in chronic kidney disease; I08.3 Combined rheumatic disorders of mitral, aortic and tricuspid valves; E11.22 Type 2 diabetes mellitus with diabetic chronic kidney disease; N28.1 Cyst of kidney, acquired; E87.70 Fluid overload, unspecified; D50.9 Iron deficiency anemia, unspecified; Z79.82 Long term (current) use of aspirin; Z79.899 Other long term (current) drug therapy; Z82.49 Family history of ischemic heart disease and other diseases of the circulatory system; Z86.73 Personal history of transient ischemic attack (TIA), and cerebral infarction without residual deficits; Z90.710 Acquired absence of both cervix and uterus; Z96.1 Presence of intraocular lens; Z98.41 Cataract extraction status, right eye; Z98.42 Cataract extraction status, left eye; Z88.1 Allergy status to other antibiotic agents; Z88.8 Allergy status to other drugs, medicaments and biological substances
CPT/HCPCS: 36410; 36415; 76937; 77012; 80048; 80053; 81001; 82728; 83540; 83550; 83605; 83615; 83735; 84100; 84157; 84443; 85025; 85027; 85610; 87040; 87070; 87075; 87077; 87102; 87116; 87186; 87205; 87206; 88173; 88305; 89050; 93005; 93306; 96361; 96374; 99285

== ENCOUNTER 2023-07-05 17:31 | Inpatient (IN) | payer MEDICARE ==
[2023-07-05] MEDS: DEXTROSE 5% IN WATER 100 ML with AMIODARONE 150 MG IV ONE (17:54)
--- NOTE | 2023-07-05 18:04 | ED ---
Arrhythmia/Palpitations HPI - General Chief Complaint: Arrhythmia/Palpitations Stated Complaint: Irregular Heart Rhythm-N/V, sent by Cardio Time Seen by Provider: 07/05/23 17:37 Source: patient Mode of arrival: wheelchair Limitations: no limitations - History of Present Illness Initial Comments: This patient is an 82-year-old woman who is sent here from the cardiology clinic. She had gone to see Dr. Abelino mae as routine follow-up after she was discharged from the hospital. The patient was known to have paroxysmal atrial fibrillation. She states that over the past few days she has been having fatigue, dyspnea, palpitations, and when she was in the clinic she was found to have atrial fibrillation with rapid ventricular rate up as high as 180. The patient denies chest pain. No diaphoresis, nausea or vomiting. The patient is currently taking eliquis. She is not currently taking rate control. MD Complaint: rapid heart beat, atrial fibrillation -: days(s) Context: occurred during rest - Related Data Home Medications Medication Instructions Recorded Confirmed [place]-3 Fatty Acids/Fish Oil [Fish 1,000 mg PO BID 05/11/14 07/05/23 Oil 1,000 mg Softgel] Omeprazole [PriLOSEC] 20 mg PO HS 05/11/14 07/05/23 allopurinoL [Zyloprim] 100 mg PO BID 05/22/17 07/05/23 Ferrous Sulfate [Iron (65 MG 325 mg PO DAILY 11/03/21 07/05/23 Elemental)] Sodium Bicarbonate Tab 650 mg PO BID 11/03/21 07/05/23 hydrOXYzine HCL [Atarax] 10 mg PO DAILY 11/03/21 07/05/23 Cholecalciferol [Vitamin D3 (25 25 mcg PO DAILY 09/15/22 07/05/23 Mcg = 1000 Iu)] Rosuvastatin [Crestor] 20 mg PO HS 09/15/22 07/05/23 Cranberry 4200mg 2 tab PO DAILY 05/24/23 07/05/23 Estrogens, Conjugated Cream 1 applicator VAGINAL MOWEFR 05/24/23 07/05/23 [Premarin Vaginal Cream] Liqua Martha Protein 1 dose PO BID 05/24/23 07/05/23 calcitrioL [Calcitriol] 0.25 mcg PO MO 05/24/23 07/05/23 hydrOXYzine HCL [Atarax] 20 mg PO HS 05/24/23 07/05/23 Midodrine HCl [ProAmatine] 10 mg PO TID PRN 07/05/23 07/05/23 Potassium Chloride ER [K-Dur 10] 10 meq PO DAILY 07/05/23 07/05/23 Previous Rx's Medication Instructions Recorded Aspirin 81 mg PO DAILY #60 tab 06/09/23 Calcium Acetate [PhosLo] 667 mg PO BID-W/MEALS #60 tab 06/09/23 Amiodarone [Cordarone] See Rx Instructions .ROUTE 07/08/23 .COMPLEX 30 Days #72 tab Apixaban [Eliquis] 2.5 mg PO BID 90 Days #180 tab 07/08/23 Metoprolol Tartrate [Lopressor] 50 mg PO BID 30 Days #60 tab 07/08/23 Prochlorperazine [Compazine] 10 mg PO Q6H PRN #40 tab 07/08/23 Allergies Allergy/AdvReac Type Severity Reaction Status Date / Time levofloxacin [From Levaquin] Allergy Hallucinati Verified 07/05/23 19:46 ons losartan [Losartan] Allergy Unknown Verified 07/05/23 19:46 LUANA Inhibitors AdvReac Cough Verified 07/05/23 19:46 Review of Systems ROS Statement: Those systems with pertinent positive or pertinent negative responses have been documented in the HPI. ROS Other: All systems not noted in ROS Statement are negative. Constitutional: Denies: fever, chills, weakness Respiratory: Reports: dyspnea. Denies: cough, wheezes Cardiovascular: Reports: palpitations, dyspnea on exertion. Denies: chest pain, orthopnea, edema, syncope Gastrointestinal: Denies: abdominal pain, nausea, vomiting, diarrhea Genitourinary: Denies: dysuria, hematuria Musculoskeletal: Denies: back pain Skin: Denies: rash Neurological: Denies: headache, weakness, numbness Past Medical History Past Medical History: CVA/TIA, Hyperlipidemia, Hypertension, Renal Disease Additional Past Medical History / Comment(s): TIA, ESRD on periotneal dialysis, UTIs, dizziness, gout, arthiritis, back pain with UTIs. History of Any Multi-Drug Resistant Organisms: None Reported Past Surgical History: Section, Hysterectomy, Joint Replacement, Or thopedic Surgery Additional Past Surgical History / Comment(s): 3 C-Sections, hysterectomy with vaginal repair, bilateral total knees, R shoulder acromioplasty, excision distal clavicle rotator cuff repair, bilateral cataract removal with lens implants, L breast bx-benign, varicose vein stripping bilaterally, peritoneal HD cath Past Anesthesia/Blood Transfusion Reactions: No Reported Reaction Past Psychological History: No Psychological Hx Reported Smoking Status: Never smoker Past Alcohol Use History: None Reported Past Drug Use History: None Reported - Past Family History Brother(s) Family Medical History: Renal Disease Father Family Medical History: Unable to Obtain Mother Family Medical History: Coronary Artery Disease (CAD), CVA/TIA Additional Family Medical History / Comment(s): Mother at 92 yrs of age. She had TIA's. General Exam Limitations: no limitations General appearance: alert, in no apparent distress Head exam: Present: atraumatic, normocephalic Eye exam: Present: normal appearance. Absent: scleral icterus, conjunctival injection ENT exam: Present: normal oropharynx Neck exam: Present: normal inspection Respiratory exam: Present: normal lung sounds bilaterally. Absent: respiratory distress, wheezes, rales, rhonchi, stridor Cardiovascular Exam: Present: tachycardia, irregular rhythm, normal heart sounds. Absent: systolic murmur, diastolic murmur, rubs, gallop GI/Abdominal exam: Present: soft. Absent: distended, tenderness, guarding, rebound, rigid, mass Extremities exam: Present: normal inspection, normal capillary refill. Absent: pedal edema, calf tenderness Back exam: Present: normal inspection. Absent: CVA tenderness (R), CVA tenderness (L) Neurological exam: Present: alert Skin exam: Present: warm, dry, intact, normal color. Absent: rash Course Vital Signs 07/05/23 07/05/23 07/05/23 17:34 18:00 18:03 Temperature 97.7 F Pulse Rate 122 H 123 H Pulse Rate [ Bilateral Dorsalis Pedis] Pulse Rate [ 151 H Reacher ] Respiratory 16 18 Rate Blood Pressure 102/66 97/67 Blood Pressure [Left Arm] O2 Sat by Pulse 95 94 L Oximetry 07/05/23 07/05/23 07/05/23 18:42 19:36 21:00 Temperature Pulse Rate 111 H 99 79 Pulse Rate [ Bilateral Dorsalis Pedis] Pulse Rate [ Reacher ] Respiratory 18 18 16 Rate Blood Pressure 113/92 135/98 109/71 Blood Pressure [Left Arm] O2 Sat by Pulse 94 L 96 94 L Oximetry 07/06/23 07/06/23 07/06/23 00:00 03:55 06:00 Temperature 97 F L 97.0 F L Pulse Rate Pulse Rate [ Bilateral Dorsalis Pedis] Pulse Rate [ 73 72 Reacher ] Respiratory 18 16 Rate Blood Pressure Blood Pressure 104/64 108/80 74/53 [Left Arm] O2 Sat by Pulse 95 95 Oximetry 07/06/23 07/06/23 07/06/23 06:15 06:17 09:18 Temperature 98.2 F Pulse Rate Pulse Rate [ Bilateral Dorsalis Pedis] Pulse Rate [ 85 Reacher ] Respiratory 20 Rate Blood Pressure Blood Pressure 88/62 94/70 103/70 [Left Arm] O2 Sat by Pulse 95 Oximetry 07/06/23 07/06/23 07/06/23 10:11 10:54 11:35 Temperature 96.7 F L Pulse Rate Pulse Rate [ 67 74 Bilateral Dorsalis Pedis] Pulse Rate [ 65 Reacher ] Respiratory 16 Rate Blood Pressure Blood Pressure 87/50 105/79 114/74 [Left Arm] O2 Sat by Pulse 96 Oximetry EKG Findings - EKG Results: EKG: interpreted by ERMD EKG shows: tachycardia, atrial fibrillation (With rate approximately 136 bpm) - Blocks, [place], Hypertrophy, ST Abn: QRS axis and voltage: left axis deviation (-30 to -90) Chamber hypertrophy or enlargement: only voltage criteria for left ventricular hypertrophy Repolarization changes or abnormalities: nonspecific abnormality, ST segment, and/or T wave Medical Decision Making - Medical Decision Making The patient had chest x-ray which is negative for acute infiltrate, just heart failure, pneumothorax Was pt. sent in by a medical professional or institution (, PA, COMMUNITY ENGAGEMENT SPECIALIST, urgent care, hospital, or usp...) When possible be specific @ -[Yes the Patient Is, sent from the cardiology clinic Did you speak to anyone other than the patient for history (EMS, parent, family, police, friend...)? What history was obtained from this source @ -[Family contributed history Did you review nursing and triage notes (agree or disagree)? Why? @ -[I reviewed and agree with nursing and triage notes] Were old charts reviewed (outside hosp., previous admission, EMS record, old EKG, old radiological studies, urgent care reports/EKG's, usp records)? Report findings @ -Yes old charts were reviewed] Differential Diagnosis (chest pain, altered mental status, abdominal pain women, abdominal pain men, vaginal bleeding, weakness, fever, dyspnea, syncope, heada laura, dizziness, GI bleed, back pain, seizure, CVA, palpatations, mental health, musculoskeletal)? @ -[Differential Palpitations Ventricular arrhythmias, atrial arrhythmias, myocardial infarction, anemia, thyrotoxicosis, electrolyte imbalance, hypokalemia, pulmonary embolism, pul monary disease, drugs, alcohol, anxiety, stress.... This is not meant to be an all-inclusive list. EKG interpreted by me (3pts min.). @ -[Interpreted As above] X-rays interpreted by me (1pt min.). @ -[I interpreted as above CT interpreted by me (1pt min.). @ -[None done] U/S interpreted by me (1pt. min.). @ -[None done] What testing was considered but not performed or refused? (CT, X-rays, U/S, labs)? Why? @ -[None] What meds were considered but not given or refused? Why? @ -[None] Did you discuss the management of the patient with other professionals (professionals i.e. , PA, COMMUNITY ENGAGEMENT SPECIALIST, lab, RT, psych nurse, social work instructor, net maker, teacher, certification officer, correctional counselor/case manager)? Give summary @ -[No] Was smoking cessation discussed for >3mins.? @ -[No] Was critical care preformed (if so, how long)? @ -[Yes, 35 minutes Were there social determinants of health that impacted care today? How? (Homelessness, low income, unemployed, alcoholism, drug addiction, transportation, low edu. Level, literacy, decrease access to med. care, snf, rehab)? @ -[No] Was there de-escalation of care discussed even if they declined (Discuss DNR or withdrawal of care, Hospice)? DNR status @ -[No] What co-morbidities impacted this encounter? (DM, HTN, Smoking, COPD, CAD, Cancer, CVA, ARF, Chemo, Hep., AIDS, mental health diagnosis, sleep apnea, morbid obesity)? @ -[End-stage renal disease, cardiac valvular disease, diabetes Was patient admitted / discharged? Hospital course, mention meds given and route, prescriptions, significant lab abnormalities, going to OR and other pertinent info. @ -[This patient is an 82-year-old woman with atrial fibrillation and rapid ventricular rate who is started on amiodarone for rhythm and rate control. Case discussed with admitting physician. Patient be admitted to have further c ardiology consultation. Treatment recommendations are incorporated Undiagnosed new problem with uncertain prognosis? @ -[No] Drug Therapy requiring intensive monitoring for toxicity (Heparin, Nitro, Insulin, Cardizem)? @ -[Amiodarone Were any procedures done? @ -[No] Diagnosis/symptom? @ -[Atrial fibrillation with rapid ventricular rate Acute, or Chronic, or Acute on Chronic? @ -[Acute on chronic Uncomplicated (without systemic symptoms) or Complicated (systemic symptoms)? @ -[, Complicated by dyspnea Side effects of treatment? @ -[No] Exacerbation, Progression, or Severe Exacerbation? @ -[No] Poses a threat to life or bodily function? How? (Chest pain, USA, MS, pneumonia, PE, COPD, DKA, ARF, appy, cholecystitis, CVA, Diverticulitis, Homicidal, Suicidal, threat to staff... and all critical care pts) @ -[Yes - Lab Data Result diagrams: 07/08/23 08:07 07/08/23 08:07 Lab Results 07/05/23 07/05/23 07/05/23 Range/Units 17:50 17:50 17:50 WBC 13.5 H (3.8-10.6) k/uL RBC 4.48 (3.80-5.40) m/uL Hgb 13.4 (11.4-16.0) gm/dL Hct 42.0 (34.0-46.0) % MCV 93.8 (80.0-100.0) fL MCH 29.9 (25.0-35.0) pg MCHC 31.9 (31.0-37.0) g/dL RDW 15.7 H (11.5-15.5) % Plt Count 337 (150-450) k/uL MPV 8.0 Neutrophils % 63 % Lymphocytes % 21 % Monocytes % 6 % Eosinophils % 8 % Basophils % 1 % Neutrophils # 8.4 H (1.3-7.7) k/uL Lymphocytes # 2.8 (1.0-4.8) k/uL Monocytes # 0.8 (0-1.0) k/uL Eosinophils # 1.1 H (0-0.7) k/uL Basophils # 0.1 (0-0.2) k/uL Hypochromasia Slight PT 11.9 (10.0-12.5) sec INR 1.1 (<1.2) APTT 27.0 (22.0-30.0) sec Sodium 135 L (137-145) mmol/L Potassium 3.6 (3.5-5.1) mmol/L Chloride 93 L (98-107) mmol/L Carbon Dioxide 25 (22-30) mmol/L Anion Gap 17 mmol/L BUN 29 H (7-17) mg/dL Creatinine 5.72 H (0.52-1.04) mg/dL Est GFR (CKD-EPI)AfAm 7 (>60 ml/min/1.73 sqM) Est GFR (CKD-EPI)NonAf 6 (>60 ml/min/1.73 sqM) Glucose 119 H (74-99) mg/dL Calcium 10.2 (8.4-10.2) mg/dL Magnesium 1.5 L (1.6-2.3) mg/dL Total Bilirubin 0.9 (0.2-1.3) mg/dL AST 34 (14-36) U/L ALT 23 (4-34) U/L Alkaline Phosphatase 108 (38-126) U/L Troponin I (0.000-0.034) ng/mL Total Protein 7.1 (6.3-8.2) g/dL Albumin 3.6 (3.5-5.0) g/dL TSH 2.430 (0.465-4.680) mIU/L 07/05/23 Range/Units 17:50 WBC (3.8-10.6) k/uL RBC (3.80-5.40) m/uL Hgb (11.4-16.0) gm/dL Hct (34.0-46.0) % MCV (80.0-100.0) fL MCH (25.0-35.0) pg MCHC (31.0-37.0) g/dL RDW (11.5-15.5) % Plt Count (150-450) k/uL MPV Neutrophils % % Lymphocytes % % Monocytes % % Eosinophils % % Basophils % % Neutrophils # (1.3-7.7) k/uL Lymphocytes # (1.0-4.8) k/uL Monocytes # (0-1.0) k/uL Eosinophils # (0-0.7) k/uL Basophils # (0-0.2) k/uL Hypochromasia PT (10.0-12.5) sec INR (<1.2) APTT (22.0-30.0) sec Sodium (137-145) mmol/L Potassium (3.5-5.1) mmol/L Chloride (98-107) mmol/L Carbon Dioxide (22-30) mmol/L Anion Gap mmol/L BUN (7-17) mg/dL Creatinine (0.52-1.04) mg/dL Est GFR (CKD-EPI)AfAm (>60 ml/min/1.73 sqM) Est GFR (CKD-EPI)NonAf (>60 ml/min/1.73 sqM) Glucose (74-99) mg/dL Calcium (8.4-10.2) mg/dL Magnesium (1.6-2.3) mg/dL Total Bilirubin (0.2-1.3) mg/dL AST (14-36) U/L ALT (4-34) U/L Alkaline Phosphatase (38-126) U/L Troponin I <0.012 (0.000-0.034) ng/mL Total Protein (6.3-8.2) g/dL Albumin (3.5-5.0) g/dL TSH (0.465-4.680) mIU/L Disposition Clinical Impression: Atrial fibrillation with rapid ventricular response Disposition: ADMITTED IP TO THIS HOSP Condition: Stable Is patient prescribed a controlled substance at d/c from ED?: No
[2023-07-05] MEDS: DEXTROSE 5% IN WATER 250 ML with AMIODARONE 300 MG IV ONE (18:07)
[2023-07-05 18:17] LABS: Basophils # (A) 0.1 k/uL (0-0.2); Basophils % (A) 1 %; Eosinophils # (A) 1.1 k/uL (0-0.7); Eosinophils % (A) 8 %; HGB 13.4 gm/dL (11.4-16.0); Hypochromasia Slight; Lymphocytes # (A) 2.8 k/uL (1.0-4.8); Lymphocytes % (A) 21 %; MCH 29.9 pg (25.0-35.0); MCHC 31.9 g/dL (31.0-37.0); MCV 93.8 fL (80.0-100.0); Monocytes # (A) 0.8 k/uL (0-1.0); Monocytes % (A) 6 %; Neutrophils # (A) 8.4 k/uL (1.3-7.7); Neutrophils % (A) 63 %; Platelet Count 337 k/uL (150-450); RBC 4.48 m/uL (3.80-5.40); RDW 15.7 % (11.5-15.5); WBC 13.5 k/uL (3.8-10.6)
--- NOTE | 2023-07-05 18:23 | XR ---
EXAMINATION TYPE: XR chest 1V portable DATE OF EXAM: 07/05/2023 6:18 PM CLINICAL INDICATION:Female, 82 years old with history of dysrhythmia; COMPARISON: Chest radiographs from 09/15/2022 TECHNIQUE: XR chest 1V portable Frontal view of the chest. FINDINGS: Lungs/Pleura: There is no evidence of pleural effusion, focal consolidation, or pneumothorax. Pulmonary vascularity: Unremarkable. Heart/mediastinum: Cardiomediastinal silhouette is unremarkable. Musculoskeletal: No acute osseous pathology. IMPRESSION: No acute cardiopulmonary disease/process.
[2023-07-05 18:25] LABS: INR 1.1 (<1.2); Prothrombin Time 11.9 sec (10.0-12.5)
[2023-07-05 18:40] LABS: ALT 23 U/L (4-34); African American GFR (CKD) 7 (>60 ml/min/1.73 sqM); Albumin 3.6 g/dL (3.5-5.0); Anion Gap 17 mmol/L; Blood Urea Nitrogen 29 mg/dL (7-17); Calcium 10.2 mg/dL (8.4-10.2); Carbon Dioxide 25 mmol/L (22-30); Chloride 93 mmol/L (98-107); Glucose 119 mg/dL (74-99); Magnesium 1.5 mg/dL (1.6-2.3); Non-African American GFR(CKD) 6 (>60 ml/min/1.73 sqM); Sodium 135 mmol/L (137-145); Total Bilirubin 0.9 mg/dL (0.2-1.3); Total Protein 7.1 g/dL (6.3-8.2)
[2023-07-05 18:42] LABS: AST 34 U/L (14-36); Alkaline Phosphatase 108 U/L (38-126); Potassium 3.6 mmol/L (3.5-5.1)
[2023-07-05] MEDS ORDERED: NITROGLYCERIN SL TABS 0.4 MG TAB SUBLINGUAL PRN (19:11)
[2023-07-05] MEDS: SODIUM CHLORIDE 0.9% 1,000 ML IV SCH (19:30)
[2023-07-05] MEDS: METOPROLOL TARTRATE 50 MG TAB PO SCH (20:24)
[2023-07-05] MEDS: APIXABAN 2.5 MG TABLET PO SCH (20:24)
[2023-07-05] MEDS: PANTOPRAZOLE 40 MG TABLET PO SCH (20:24)
[2023-07-05] MEDS: SODIUM BICARBONATE TAB 650 MG TAB PO SCH (20:24)
[2023-07-05] MEDS: ATORVASTATIN 40 MG TAB PO SCH (20:24)
--- NOTE | 2023-07-05 23:58 | P.HPIM ---
History of Present Illness H&P Date: 07/05/23 Patient is a 82-year-old female with a PMH of paroxysmal A. fib on Eliquis, ESRD on peritoneal dialysis, hypertension, hyperlipidemia, history of TIA who was sent to the emergency room by Dr. Roca due to concerns of A. fib with RVR. During her scheduled appointment, she was noted to have A. fib with RVR with rates as high as 180. The patient does report that over the past few days she has been feeling more fatigued with occasional shortness of breath and palpitations. She denied experiencing any chest discomfort, nausea, vomiting, abdominal pain, diarrhea. Reports feeling at her baseline at the time of interview. Denied fever, chills, cough. In the emergency room, EKG revealed A. fib with RVR at 136 bpm as reviewed by me. Chest x-ray was unremarkable. Laboratory evaluation revealed leukocytosis of 13.5 (chronic and at baseline), BUN 29, creatinine 5.72, troponin less than 0.012. The patient's vital signs in the emergency room were BP 97/67, pulse 123, and SpO2 94% on room air. ED documentation reviewed and case discussed with ED provider. Review of systems: Pertinent positives and negatives as discussed in HPI, a complete review of systems was performed and all other systems are negative. Physical examination: Vital signs reviewed General: non toxic, no distress, appears at stated age, normal weight Derm: no unusual rashes/lesions, warm Head: atraumatic, normocephalic, symmetric Eyes: EOMI, no lid lag, anicteric sclera, pupils equal round reactive to light ENT: Nose and ears atraumatic Neck: No cervical lymphadenopathy, trachea midline, supple Mouth: no lip lesion, mucus membranes moist Cardiovascular: S1S2 reg, no murmur, positive dorsalis pedis pulse bilateral, no edema Lungs: CTA bilateral, no rhonchi, no rales, no accessory muscle use Abdominal: soft, nontender to palpation, no guarding, peritoneal dialysis catheter in place without surrounding abnormalities Ext: muscle strength 5 out of 5 in all 4 extremities grossly, no gross muscle atrophy, no contractures, Neuro: CN II-XI grossly intact, no gross focal neuro deficits Psych: Alert, oriented, appropriate affect Assessment: A. fib with RVR Chronic conditions: ESRD, hypertension, hyperlipidemia, history of TIA Imaging: In the emergency room, EKG revealed A. fib with RVR at 136 bpm as reviewed by me. Chest x-ray was unremarkable Data Review: Laboratory evaluation revealed leukocytosis of 13.5 (chronic and at baseline), BUN 29, creatinine 5.72, troponin less than 0.012. Plan: Continue with amiodarone infusion (in light of hypertension) Continue the remaining home medications Cardiology consulted Cardiac monitoring Nephrology consulted for resumption of peritoneal dialysis DVT prophylaxis: [place] The patient is admitted with an anticipated greater than 2 midnight stay for evaluation of Afib CODE STATUS: Full Code Discussed with: Patient Anticipated discharge place: Home Past Medical History Past Medical History: CVA/TIA, Hyperlipidemia, Hypertension, Renal Disease Additional Past Medical History / Comment(s): TIA, ESRD on periotneal dialysis, UTIs, dizziness, gout, arthiritis, back pain with UTIs. History of Any Multi-Drug Resistant Organisms: None Reported Past Surgical History: Section, Hysterectomy, Joint Replacement, Orthopedic Surgery Additional Past Surgical History / Comment(s): 3 C-Sections, hysterectomy with vaginal repair, bilateral total knees, R shoulder acromioplasty, excision distal clavicle rotator cuff repair, bilateral cataract removal with lens implants, L breast bx-benign, varicose vein stripping bilaterally, peritoneal HD cath Past Anesthesia/Blood Transfusion Reactions: No Reported Reaction Past Psychological History: No Psychological Hx Reported Smoking Status: Never smoker Past Alcohol Use History: None Reported Past Drug Use History: None Reported - Past Family History Brother(s) Family Medical History: Renal Disease Father Family Medical History: Unable to Obtain Mother Family Medical History: Coronary Artery Disease (CAD), CVA/TIA Additional Family Medical History / Comment(s): Mother at 92 yrs of age. She had TIA's. Medications and Allergies Home Medications Medication Instructions Recorded Confirmed Type [place]-3 Fatty Acids/Fish Oil [Fish 1,000 mg PO BID 05/11/14 07/05/23 History Oil 1,000 mg Softgel] Omeprazole [PriLOSEC] 20 mg PO HS 05/11/14 07/05/23 History allopurinoL [Zyloprim] 100 mg PO BID 05/22/17 07/05/23 History Ferrous Sulfate [Iron (65 MG 325 mg PO DAILY 11/03/21 07/05/23 History Elemental)] Sodium Bicarbonate Tab 650 mg PO BID 11/03/21 07/05/23 History hydrOXYzine HCL [Atarax] 10 mg PO DAILY 11/03/21 07/05/23 History Cholecalciferol [Vitamin D3 (25 25 mcg PO DAILY 09/15/22 07/05/23 History Mcg = 1000 Iu)] Rosuvastatin [Crestor] 20 mg PO HS 09/15/22 07/05/23 History Cranberry 4200mg 2 tab PO DAILY 05/24/23 07/05/23 History Estrogens, Conjugated Cream 1 applicator VAGINAL MOWEFR 05/24/23 07/05/23 History [Premarin Vaginal Cream] Liqua Martha Protein 1 dose PO BID 05/24/23 07/05/23 History calcitrioL [Calcitriol] 0.25 mcg PO MO 05/24/23 07/05/23 History hydrOXYzine HCL [Atarax] 20 mg PO HS 05/24/23 07/05/23 History Apixaban [Eliquis] 2.5 mg PO BID #60 tab 06/09/23 07/05/23 Rx Aspirin 81 mg PO DAILY #60 tab 06/09/23 07/05/23 Rx Calcium Acetate [PhosLo] 667 mg PO BID-W/MEALS #60 tab 06/09/23 07/05/23 Rx Cefuroxime [Ceftin] 250 mg PO BID 07/05/23 07/05/23 History Midodrine HCl [ProAmatine] 10 mg PO TID PRN 07/05/23 07/05/23 History Potassium Chloride ER [K-Dur 10] 10 meq PO DAILY 07/05/23 07/05/23 History Prochlorperazine [Compazine] 10 mg PO Q6H PRN 07/05/23 07/05/23 History Allergies Allergy/AdvReac Type Severity Reaction Status Date / Time levofloxacin [From Levaquin] Allergy Hallucinati Verified 07/05/23 19:46 ons losartan [Losartan] Allergy Unknown Verified 07/05/23 19:46 LUANA Inhibitors AdvReac Cough Verified 07/05/23 19:46 Physical Exam Vitals: Vital Signs Temp Pulse Pulse Resp BP Pulse Ox 07/05/23 21:00 79 16 109/71 94 L 07/05/23 19:36 99 18 135/98 96 07/05/23 18:42 111 H 18 113/92 94 L 12/05/23 18:03 123 H 18 97/67 94 L 07/05/23 18:00 151 H 07/05/23 17:34 97.7 F 122 H 16 102/66 95 Intake and Output 07/05/23 07/05/23 07/06/23 14:59 22:59 06:59 Other: Weight 72.575 kg Results CBC & Chem 7: 07/05/23 17:50 07/05/23 17:50 Labs: Abnormal Lab Results - Last 24 Hours (Table) 07/05/23 07/05/23 Range/Units 17:50 17:50 WBC 13.5 H (3.8-10.6) k/uL RDW 15.7 H (11.5-15.5) % Neutrophils # 8.4 H (1.3-7.7) k/uL Eosinophils # 1.1 H (0-0.7) k/uL Sodium 135 L (137-145) mmol/L Chloride 93 L (98-107) mmol/L BUN 29 H (7-17) mg/dL Creatinine 5.72 H (0.52-1.04) mg/dL Glucose 119 H (74-99) mg/dL Magnesium 1.5 L (1.6-2.3) mg/dL
[2023-07-06] MEDS: DIALYSIS (PERIT 1.5%) 2,500 ML 37.5 G/2,500 ML BAG INTRAPERIT SCH (03:23)
[2023-07-06] MEDS ORDERED: ASPIRIN 325 MG TAB PO SCH (09:00)
[2023-07-06] MEDS ORDERED: ASPIRIN 81 MG PO SCH (09:00)
[2023-07-06] MEDS: AMIODARONE 200 MG TAB PO SCH (09:12)
[2023-07-06] MEDS: CALCIUM ACETATE 667 MG TAB PO SCH (09:13)
[2023-07-06 11:00] LABS: Chol/HDL Ratio 2.23 Ratio; LDL Cholesterol,Calculated 22.7 mg/dL (0.0-131.0)
--- NOTE | 2023-07-06 11:48 | P.CRDCN ---
History of Present Illness Consult date: 07/06/23 Consult reason: atrial fibrillation (rvr) History of present illness: History of present illness: This is an 82 year old female patient of Dr. Roca with past medical history of hypertension, dyslipidemia, history of TIA, end-stage renal disease on peritoneal dialysis, valvular heart disease with aortic, mitral regurgitation and tricuspid regurgitation. We have been asked to evaluate the patient for A. fib with RVR. Patient is seen today in the emergency center waiting for a bed on the cardiac stepdown unit. Patient states that yesterday she did not feel well and was feeling tired and fatigued with no energy. She was seen by Dr. Roca in the office and found to be in A. fib with RVR and was advised to go straight to the hospital. She also had lightheadedness. She denies any syncopal episodes. Patient relates that she also had vomiting for 3 days which seems to have resolved. She denies having any lower extremity edema. No fever. She does have a cough cough. No blood in her urine or stool. No history of stroke or seizure. Patient states she is feeling well now. She states she has been taking all of her medications as directed. She is a nonsmoker. Has been started on amiodarone drip. Blood pressure 9460, heart rate is 77 and telemetry is sinus rhythm. EKG atrial fibrillation, telemetry sinus rhythm WBC 13.5, he was over 13.4, platelet count 337. INR 1.1. Sodium 135, potassium 3.6, chloride 93, CO2 25, BUN 29 creatinine 5.7. Troponin negative 2. Magnesium 1.5. Triglycerides 135, cholesterol 90, LDL 22. TSH 2.43. Home cardiac medications: Eliquis 2.5 mg twice daily, aspirin 81 mg daily, midodrine 10 mg 3 times daily as needed, potassium chloride 10 mEq daily, Crestor 20 mild grams at bedtime. Echocardiogram performed 06/03/2023 reveals normal ventricular size and systolic function. [id number] mitral with mild tricuspid regurgitation and trace aortic regurgitation. Lexiscan stress test 05/2020 revealed Negative stress test. Review Of Systems: At the time of my evaluation: Constitutional: No fever, no chills. No weakness, fatigue or lethargy. EENT: No headache. No dizziness. Lungs: No shortness of breath, cough, no sputum production. No wheezing. Cardiovascular: No chest pain, no lower extremity edema. No palpitations. No paroxysmal nocturnal dyspnea. No orthopnea. No lightheadedness or dizziness. No syncopal episodes. Abdominal: No abdominal pain. No nausea, vomiting. No diarrhea. No constipation. No bloody or tarry stools. Genitourinary: No hematuria. Musculoskeletal: No myalgias. No muscle weakness, no frequent falls. Integumentary: No wounds. No rash. No unusual bruising. Neurologic: No aphasia. No facial droop. No change in mentation. Physical examination: Gen: This is an 82-year-old female resting and appears to be comfortable and in no acute distress VS: reviewed HEENT: Head is atraumatic, normocephalic. Pupils equal, round. Sclerae is anicteric. NECK: Supple. No JVD. LUNGS: Clear to auscultation. No wheezes or rhonchi. No intercostal retractions. HEART: Regular rate and rhythm. Soft systolic murmur. ABDOMEN: Soft No tenderness. EXTREMITIES: No pedal edema. No calf tenderness. NEUROLOGICAL: Patient is awake, alert and oriented x3. Assessment: Paroxysmal atrial fibrillation with RVR, converted to sinus rhythm Hypertension Dyslipidemia History of TIA End-stage renal disease on peritoneal dialysis Valvular heart disease with aortic, mitral and tricuspid regurgitation Plan: Resume patient's home cardiac medications Discontinue aspirin Discontinue amiodarone drip and start amiodarone oral 400 mg twice daily Continue eliquis 2.5 mg twice daily No need to repeat echocardiogram as this was done in June Further recommendations to follow based upon clinical course Thank you kindly for this consultation. Nurse practitioner note has been reviewed, I agree with documented findings and plan of care. Patient was seen and examined. 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 History of Any Multi-Drug Resistant Organisms: None Reported Past Surgical History: Section, Hysterectomy, Joint Replacement, Orthopedic Surgery Additional Past Surgical History / Comment(s): 3 C-Sections, hysterectomy with vaginal repair, bilateral total knees, R shoulder acromioplasty, excision distal clavicle rotator cuff repair, bilateral cataract removal with lens implants, L breast bx-benign, varicose vein stripping bilaterally, peritoneal HD cath Past Anesthesia/Blood Transfusion Reactions: No Reported Reaction Smoking Status: Never smoker - Past Family History Brother(s) Family Medical History: Renal Disease Father Family Medical History: Unable to Obtain Mother Family Medical History: Coronary Artery Disease (CAD), CVA/TIA Additional Family Medical History / Comment(s): Mother at 92 yrs of age. She had TIA's. Medications and Allergies Home Medications Medication Instructions Recorded Confirmed Type Labolt-3 Fatty Acids/Fish Oil [Fish 1,000 mg PO BID 05/11/14 07/05/23 History Oil 1,000 mg Softgel] Omeprazole [PriLOSEC] 20 mg PO HS 05/11/14 07/05/23 History allopurinoL [Zyloprim] 100 mg PO BID 05/22/17 07/05/23 History Ferrous Sulfate [Iron (65 MG 325 mg PO DAILY 11/03/21 07/05/23 History Elemental)] Sodium Bicarbonate Tab 650 mg PO BID 11/03/21 07/05/23 History hydrOXYzine HCL [Atarax] 10 mg PO DAILY 11/03/21 07/05/23 History Cholecalciferol [Vitamin D3 (25 25 mcg PO DAILY 09/15/22 07/05/23 History Mcg = 1000 Iu)] Rosuvastatin [Crestor] 20 mg PO HS 09/15/22 07/05/23 History Cranberry 4200mg 2 tab PO DAILY 05/24/23 07/05/23 History Estrogens, Conjugated Cream 1 applicator VAGINAL MOWEFR 05/24/23 07/05/23 History [Premarin Vaginal Cream] Liqua Martha Protein 1 dose PO BID 05/24/23 07/05/23 History calcitrioL [Calcitriol] 0.25 mcg PO MO 05/24/23 07/05/23 History hydrOXYzine HCL [Atarax] 20 mg PO HS 05/24/23 07/05/23 History Apixaban [Eliquis] 2.5 mg PO BID #60 tab 06/09/23 07/05/23 Rx Aspirin 81 mg PO DAILY #60 tab 06/09/23 07/05/23 Rx Calcium Acetate [PhosLo] 667 mg PO BID-W/MEALS #60 tab 06/09/23 07/05/23 Rx Cefuroxime [Ceftin] 250 mg PO BID 07/05/23 07/05/23 History Midodrine HCl [ProAmatine] 10 mg PO TID PRN 07/05/23 07/05/23 History Potassium Chloride ER [K-Dur 10] 10 meq PO DAILY 07/05/23 07/05/23 History Prochlorperazine [Compazine] 10 mg PO Q6H PRN 07/05/23 07/05/23 History Allergies Allergy/AdvReac Type Severity Reaction Status Date / Time levofloxacin [From Levaquin] Allergy Hallucinati Verified 07/05/23 19:46 ons losartan [Losartan] Allergy Unknown Verified 07/05/23 19:46 LUANA Inhibitors AdvReac Cough Verified 07/05/23 19:46 Physical Exam Vitals: Vital Signs Temp Pulse Pulse Resp BP BP Pulse Ox 07/06/23 06:17 94/70 07/06/23 06:15 88/62 07/06/23 06:00 74/53 07/06/23 03:55 97.0 F L 72 16 108/80 95 07/06/23 00:00 97 F L 73 18 104/64 95 07/05/23 21:00 79 16 109/71 94 L 07/05/23 19:36 99 18 135/98 96 07/05/23 18:42 111 H 18 113/92 94 L 07/05/23 18:03 123 H 18 97/67 94 L 07/05/23 18:00 151 H 07/05/23 17:34 97.7 F 122 H 16 102/66 95 Intake and Output 07/05/23 07/06/23 07/06/23 22:59 06:59 14:59 Intake Total 160 Output Total 0 Balance 160 Intake: IV 160 Sodium Chloride 0.9% 1, 160 000 ml @ 20 mls/hr IV . Q24H [facility] Rx#:[id number] Output: Urine 0 Other: Voiding Method Toilet Weight 72.575 kg 72.72 kg Results 07/05/23 17:50 07/05/23 17:50 Cardiac Enzymes 07/05/23 07/05/23 07/05/23 Range/Units 17:50 17:50 21:58 AST 34 (14-36) U/L Troponin I <0.012 <0.012 (0.000-0.034) ng/mL Coagulation 07/05/23 Range/Units 17:50 PT 11.9 (10.0-12.5) sec APTT 27.0 (22.0-30.0) sec CBC 07/05/23 Range/Units 17:50 WBC 13.5 H (3.8-10.6) k/uL RBC 4.48 (3.80-5.40) m/uL Hgb 13.4 (11.4-16.0) gm/dL Hct 42.0 (34.0-46.0) % Plt Count 337 (150-450) k/uL Comprehensive Metabolic Panel 07/05/23 Range/Units 17:50 Sodium 135 L (137-145) mmol/L Potassium 3.6 (3.5-5.1) mmol/L Chloride 93 L (98-107) mmol/L Carbon Dioxide 25 (22-30) mmol/L BUN 29 H (7-17) mg/dL Creatinine 5.72 H (0.52-1.04) mg/dL Glucose 119 H (74-99) mg/dL Calcium 10.2 (8.4-10.2) mg/dL AST 34 (14-36) U/L ALT 23 (4-34) U/L Alkaline Phosphatase 108 (38-126) U/L Total Protein 7.1 (6.3-8.2) g/dL Albumin 3.6 (3.5-5.0) g/dL Current Medications Generic Name Dose Route Start Last Admin Trade Name Freq PRN Reason Stop Dose Admin Apixaban 2.5 mg 07/05/23 21:00 07/05/23 20:24 Apixaban 2.5 Mg Tablet PO 2.5 mg BID JOHNNY Administration Protocol Aspirin 81 mg 07/06/23 09:00 Aspirin 81 Mg PO DAILY JOHNNY Atorvastatin Calcium 40 mg 07/05/23 21:00 07/05/23 20:24 Atorvastatin 40 Mg Tab PO 40 mg HS JOHNNY Administration Calcium Acetate 667 mg 07/06/23 07:30 Calcium Acetate 667 Mg Tab PO BID-W/MEALS JOHNNY Sodium Chloride 1,000 mls @ 20 mls/hr 07/05/23 19:15 07/05/23 19:30 Saline 0.9% IV 20 mls/hr .Q24H [facility] Administration Peritoneal Dialysis Solution 37.5 g in 2,500 mls @ 2,500 mls/hr 07/06/23 03:00 07/06/23 03:23 Delflex With 1.5% Dextrose (2,500 Ml) INTRAPERIT 2,500 mls/hr Q6H JOHNNY Administration Metoprolol Tartrate 50 mg 07/05/23 21:00 07/05/23 20:24 Metoprolol Tartrate 50 Mg Tab PO 50 mg BID JOHNNY Administration Nitroglycerin 0.4 mg 07/05/23 19:11 Nitroglycerin Sl Tabs 0.4 Mg Tab SUBLINGUAL Q5M PRN Chest Pain Pantoprazole Sodium 40 mg 07/05/23 21:00 07/05/23 20:24 Pantoprazole 40 Mg Tablet PO 40 mg HS JOHNNY Administration Sodium Bicarbonate 650 mg 07/05/23 21:00 07/05/23 20:24 Sodium Bicarbonate Tab 650 Mg Tab PO 650 mg BID JOHNNY Administration Intake and Output 07/05/23 07/06/23 07/06/23 22:59 06:59 14:59 Intake Total 160 Output Total 0 Balance 160 Intake: IV 160 Sodium Chloride 0.9% 1, 160 000 ml @ 20 mls/hr IV . Q24H [facility] Rx#:[id number] Output: Urine 0 Other: Voiding Method Toilet Weight 72.575 kg 72.72 kg 07/05/23 17:50 07/05/23 17:50
[2023-07-06] MEDS ORDERED: PROCHLORPERAZINE 10 MG TAB PO PRN (12:42)
[2023-07-06] MEDS: hydrOXYzine HCL 10 MG TAB PO SCH ×2 (14:59→22:26)
[2023-07-06] MEDS: ONDANSETRON 4 MG/2 ML VIAL IVP PRN (15:00)
--- NOTE | 2023-07-06 15:32 | P.PN ---
Subjective Progress Note Date: 07/06/23 Hospital course: Patient is a very pleasant 82-year-old female with a past medical history of ESRD on peritoneal dialysis, paroxysmal atrial fibrillation, hypertension, hyperlipidemia, and history of TIA. She presented to the emergency department as directed by her kiln setter for new onset A. fib RVR. Patient was reported to be found with new onset atrial fibrillation with RVR with ventricular rates reported as high as 180. She underwent full evaluation in the emergency depar tment. EKG completed showing atrial fibrillation with RVR at 136. Chest x-ray negative for acute cardiopulmonary process. CBC showing leukocytosis with WBC count of 13.5 otherwise normal findings. Coordination profile normal findings. BMP showing sodium 135, chloride 93, potassium 3.6, renal function consistent with ESRD with BUN 29, creatinine 5.72 and GFR 6. Magnesium was low at 1.5. Liver profile unremarkable. Troponin negative at less than 0.012. TSH normal findings at 2.430. Patient was started on amiodarone infusion and admitted under our services for atrial fibrillation with RVR. Consultation was placed to cardiology. Troponins trended overnight negative at less than 0.0122 draws. Lipid profile unremarkable. Physical exam: Vital signs reviewed and stable. General: Nontoxic, no distress and appears stated age. Derm: Skin warm and dry, normal coloration for ethnicity. Head: Atraumatic, normocephalic and symmetric. Eyes: EOMs intact, no lid lag, and anicteric sclera Mouth: no lip lesions, mucus membranes moist Cardiovascular: regular rate and rhythm with normal S1S2, no murmur, positive posterior tibial pulses bilaterally, and cap refill < 2 seconds. Lungs: Respirations even, regular, and unlabored on room air. Lungs CTA bilaterally, no rhonchi, no rales, no wheezing, and no accessory muscle usage. Abdominal: soft, nontender to palpation, no guarding, no appreciable organomegaly Ext: ROM intact. No gross muscle atrophy, no edema, no contractures Neuro: Speech clear, face symmetrical and CN II-XII grossly intact with no noted focal neuro deficits Psych: Alert and oriented to person, place, time, and situation. Appropriate and pleasant affect. Assessment and Plan of Care: Atrial fibrillation with RVR, converted to normal sinus rhythm Hypertension Hyperlipidemia History of TIA Chest pain, rule out acute coronary event -Cardiology following, reviewed and recommended. -Continue Telemetry monitoring. -Patient converted to normal sinus mechanism, amiodarone infusion was discontinued and patient was started on oral amiodarone 400 mg twice daily. -Continue daily medication regimen with Eliquis 2.5 mg twice daily, atorvastatin 40 mg nightly, and metoprolol 50 mg twice daily. -Lipid profile with a.m. labs. -Echocardiogram ESRD on peritoneal dialysis Nephrology consulted for management of peritoneal dialysis. Data reviewed: Vital signs reviewed blood pressure 103/70, heart rate 85, respiratory rate 20, temp 98.2F, SpO2 95% on room air. Troponins trended overnight all negative at less than 0.0122 draws. Lipid profile unremarkable. CODE STATUS: Full code DVT prophylaxis: Eliquis Anticipated discharge date: Clinical course to determine Anticipated discharge place: Clinical course to determine Patient was seen independently by Nurse Pracitioner. This document was prepared using [employer] dictation software. Please allow for errors in food storeroom clerk, while rare they do occur. Paul Ryan NP rendered care for this patient independently, reviewed the findings and plan as documented in the note above. I did not physically speak with or examine the patient on this date. Objective - Vital Signs Vital signs: Vital Signs Temp 97.0 F L 07/06/23 03:55 Pulse 72 07/06/23 03:55 Resp 16 07/06/23 03:55 BP 94/70 07/06/23 06:17 Pulse Ox 95 07/06/23 03:55 FiO2 Intake & Output 07/05/23 07/06/23 07/06/23 18:59 06:59 18:59 Intake Total 160 Output Total 0 Balance 160 Weight 72.575 kg 72.72 kg Intake: IV 160 Sodium Chloride 0.9% 1, 160 000 ml @ 20 mls/hr IV . Q24H [facility] Rx#:[id number] Output: Urine 0 Other: Voiding Method Toilet - Labs CBC & Chem 7: 07/08/23 08:07 07/08/23 08:07 Labs: Abnormal Lab Results - Last 24 Hours (Table) 07/05/23 07/05/23 Range/Units 17:50 17:50 WBC 13.5 H (3.8-10.6) k/uL RDW 15.7 H (11.5-15.5) % Neutrophils # 8.4 H (1.3-7.7) k/uL Eosinophils # 1.1 H (0-0.7) k/uL Sodium 135 L (137-145) mmol/L Chloride 93 L (98-107) mmol/L BUN 29 H (7-17) mg/dL Creatinine 5.72 H (0.52-1.04) mg/dL Glucose 119 H (74-99) mg/dL Magnesium 1.5 L (1.6-2.3) mg/dL
[2023-07-06] MEDS: MAGNESIUM OXIDE 400 MG TAB PO STA (17:30)
[2023-07-06] MEDS: MIDODRINE 5 MG TAB PO PRN (17:30)
[2023-07-06] MEDS: allopurinoL 100 MG TAB PO SCH (22:24)
[2023-07-07 10:03] LABS: ALT 19 U/L (4-34); AST 32 U/L (14-36); African American GFR (CKD) 8 (>60 ml/min/1.73 sqM); Alkaline Phosphatase 92 U/L (38-126); Anion Gap 14 mmol/L; Blood Urea Nitrogen 25 mg/dL (7-17); Calcium 10.1 mg/dL (8.4-10.2); Carbon Dioxide 27 mmol/L (22-30); Chloride 93 mmol/L (98-107); Glucose 111 mg/dL (74-99); Magnesium 1.6 mg/dL (1.6-2.3); Non-African American GFR(CKD) 7 (>60 ml/min/1.73 sqM); Potassium 2.9 mmol/L (3.5-5.1); Sodium 134 mmol/L (137-145); Total Bilirubin 0.8 mg/dL (0.2-1.3); Total Protein 6.1 g/dL (6.3-8.2)
[2023-07-07 10:05] LABS: HCT 38.4 % (34.0-46.0); HGB 12.1 gm/dL (11.4-16.0); Hypochromasia Moderate; MCH 30.4 pg (25.0-35.0); MCHC 31.4 g/dL (31.0-37.0); MCV 96.8 fL (80.0-100.0); Mean Platelet Volume 8.1; Platelet Count 242 k/uL (150-450); RBC 3.97 m/uL (3.80-5.40); RDW 15.5 % (11.5-15.5); WBC 9.7 k/uL (3.8-10.6)
--- NOTE | 2023-07-07 11:56 | P.NPCON ---
History of Present Illness - Reason for Consult end stage renal disease - History of Present Illness Patient is an 82-year-old female with end-stage renal disease maintained on peritoneal dialysis. She was admitted to the hospital from cardiology due to A. fib with RVR. Currently maintained on amiodarone drip. Heart rate has improved from 180 initially 278-80 bpm now. Patient denies any chest pains or palpitations or shortness of breath. She has been complaining of nausea on and off but this had improved post recent discharge from the hospital on 06/09/2023. He shouldn't was admitted at that time. 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 No complaints with dialysis. No history of diarrhea, fever or cough. Review of Systems As per HPI Past Medical History Past Medical History: CVA/TIA, Hyperlipidemia, Hypertension, Renal Disease Additional Past Medical History / Comment(s): TIA, ESRD on periotneal dialysis, UTIs, dizziness, gout, arthiritis, back pain with UTIs. History of Any Multi-Drug Resistant Organisms: None Reported Past Surgical History: Section, Hysterectomy, Joint Replacement, Orthopedic Surgery Additional Past Surgical History / Comment(s): 3 C-Sections, hysterectomy with vaginal repair, bilateral total knees, R shoulder acromioplasty, excision distal clavicle rotator cuff repair, bilateral cataract removal with lens implants, L breast bx-benign, varicose vein stripping bilaterally, peritoneal HD cath Past Anesthesia/Blood Transfusion Reactions: No Reported Reaction Smoking Status: Never smoker - Past Family History Brother(s) Family Medical History: Renal Disease Father Family Medical History: Unable to Obtain Mother Family Medical History: Coronary Artery Disease (CAD), CVA/TIA Additional Family Medical History / Comment(s): Mother at 92 yrs of age. She had TIA's. Medications and Allergies Home Medications Medication Instructions Recorded Confirmed Type Nettie-3 Fatty Acids/Fish Oil [Fish 1,000 mg PO BID 05/11/14 07/05/23 History Oil 1,000 mg Softgel] Omeprazole [PriLOSEC] 20 mg PO HS 05/11/14 07/05/23 History allopurinoL [Zyloprim] 100 mg PO BID 05/22/17 07/05/23 History Ferrous Sulfate [Iron (65 MG 325 mg PO DAILY 11/03/21 07/05/23 History Elemental)] Sodium Bicarbonate Tab 650 mg PO BID 11/03/21 07/05/23 History hydrOXYzine HCL [Atarax] 10 mg PO DAILY 11/03/21 07/05/23 History Cholecalciferol [Vitamin D3 (25 25 mcg PO DAILY 09/15/22 07/05/23 History Mcg = 1000 Iu)] Rosuvastatin [Crestor] 20 mg PO HS 09/15/22 07/05/23 History Cranberry 4200mg 2 tab PO DAILY 05/24/23 07/05/23 History Estrogens, Conjugated Cream 1 applicator VAGINAL MOWEFR 05/24/23 07/05/23 History [Premarin Vaginal Cream] Liqua Martha Protein 1 dose PO BID 05/24/23 07/05/23 History calcitrioL [Calcitriol] 0.25 mcg PO MO 05/24/23 07/05/23 History hydrOXYzine HCL [Atarax] 20 mg PO HS 05/24/23 07/05/23 History Apixaban [Eliquis] 2.5 mg PO BID #60 tab 06/09/23 07/05/23 Rx Aspirin 81 mg PO DAILY #60 tab 06/09/23 07/05/23 Rx Calcium Acetate [PhosLo] 667 mg PO BID-W/MEALS #60 tab 06/09/23 07/05/23 Rx Cefuroxime [Ceftin] 250 mg PO BID 07/05/23 07/05/23 History Midodrine HCl [ProAmatine] 10 mg PO TID PRN 07/05/23 07/05/23 History Potassium Chloride ER [K-Dur 10] 10 meq PO DAILY 07/05/23 07/05/23 History Prochlorperazine [Compazine] 10 mg PO Q6H PRN 07/05/23 07/05/23 History Allergies Allergy/AdvReac Type Severity Reaction Status Date / Time levofloxacin [From Levaquin] Allergy Hallucinati Verified 07/05/23 19:46 ons losartan [Losartan] Allergy Unknown Verified 07/05/23 19:46 LUANA Inhibitors AdvReac Cough Verified 07/05/23 19:46 Physical Exam Vitals: Vital Signs Temp Pulse Pulse Pulse Resp BP BP 07/07/23 11:02 98.4 F 78 17 116/81 07/07/23 08:05 97.7 F 109 H 17 112/82 07/07/23 08:00 78 17 07/07/23 05:35 97.8 F 74 16 108/67 07/07/23 04:00 74 16 108/67 07/07/23 02:00 63 71 16 07/07/23 00:00 71 16 119/78 07/06/23 22:28 97.7 F 63 14 108/72 07/06/23 20:00 97.7 F 63 63 16 108/72 07/06/23 16:00 98.4 F 71 17 89/46 07/06/23 14:00 65 16 Pulse Ox 07/07/23 11:02 93 L 07/07/23 08:05 93 L 07/07/23 08:00 07/07/23 05:35 93 L 07/07/23 04:00 93 L 07/07/23 02:00 07/07/23 00:00 93 L 07/06/23 22:28 94 L 07/06/23 20:00 94 L 07/06/23 16:00 94 L 07/06/23 14:00 Intake and Output 07/06/23 07/07/23 07/07/23 22:59 06:59 14:59 Intake Total 240 90 Balance 240 90 Intake: Oral 240 90 Other: Voiding Method Toilet Toilet Toilet # Voids 0 Patient is awake, comfortable, no acute distress Examination of the heart S1 and S2 Examination of the lungs bilateral breath sounds are heard Abdomen is soft nontender Examination of lower extremities shows no significant edema HAND LENS POLISHER exam grossly intact Results - Lab Results Most recent lab results Calcium 10.1 mg/dL (8.4-10.2) 07/07/23 08:57 Magnesium 1.6 mg/dL (1.6-2.3) 07/07/23 08:57 07/07/23 08:57 07/07/23 08:57 Assessment and Plan Assessment: 1. End-stage renal disease maintained on peritoneal dialysis 2. A. fib with RVR, controlled ventricular response now with IV amiodarone and metoprolol. Blood pressure is on the lower side 3. CK D mineral bone disorder 4. 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 Patient was maintained on long-term IV antibiotics and also had CT drainage of the abscess. She was discharged on 06/09/2023. Plan: Maintained PD exchanges with 1.5% solution to avoid excessive UF Continue with midodrine Monitor electrolytes Consider decreasing dose of metoprolol if heart rate remains controlled. Thank you for the consultation. We will continue to follow the patient with you during her hospitalization.
--- NOTE | 2023-07-07 11:59 | P.PN ---
Subjective Patient is seen for follow-up for end-stage renal disease. She was admitted to the hospital with A. fib with RVR. Patient converted to normal sinus rhythm and amiodarone has has been changed to oral. She remains on metoprolol. Blood pressure has been low and patient is currently maintained on midodrine. Complaining of nausea and patient also had an emesis today after breakfast. Objective - Vital Signs Vital signs: Vital Signs Temp 98.4 F 07/07/23 11:02 Pulse 78 07/07/23 11:02 Resp 17 07/07/23 11:02 BP 116/81 07/07/23 11:02 Pulse Ox 93 L 07/07/23 11:02 FiO2 Intake & Output 07/06/23 07/07/23 07/07/23 18:59 06:59 18:59 Intake Total 420 90 Balance 420 90 Intake: Oral 420 90 Other: Voiding Method Toilet Toilet Toilet # Voids 1 0 # Bowel Movements 1 - Exam Patient is awake, comfortable, no acute distress Examination of the heart S1 and S2 Examination of the lungs bilateral breath sounds are heard Abdomen is soft nontender Examination of lower extremities shows no significant edema ONCOLOGY NURSE NAVIGATOR exam grossly intact - Labs CBC & Chem 7: 07/07/23 08:57 07/07/23 08:57 Labs: Abnormal Lab Results - Last 24 Hours (Table) 07/07/23 Range/Units 08:57 Sodium 134 L (137-145) mmol/L Potassium 2.9 L (3.5-5.1) mmol/L Chloride 93 L (98-107) mmol/L BUN 25 H (7-17) mg/dL Creatinine 5.57 H (0.52-1.04) mg/dL Glucose 111 H (74-99) mg/dL Total Protein 6.1 L (6.3-8.2) g/dL Albumin 3.0 L (3.5-5.0) g/dL Assessment and Plan Assessment: 1. End-stage renal disease maintained on peritoneal dialysis 2. A. fib with RVR, controlled ventricular response now with IV amiodarone and metoprolol. Blood pressure is on the lower side 3. CK D mineral bone disorder 4. 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 Patient was maintained on long-term IV antibiotics and also had CT drainage of the abscess. She was discharged on 06/09/2023. Plan: Maintain PD exchanges with 1.5% solution to avoid excessive UF Continue with midodrine Replace potassium Add gentle IV hydration
--- NOTE | 2023-07-07 13:38 | P.PN ---
Subjective Progress Note Date: 07/07/23 History of present illness: This is an 82 year old female patient of Dr. Roca with past medical history of hypertension, dyslipidemia, history of TIA, end-stage renal disease on peritoneal dialysis, valvular heart disease with aortic, mitral regurgitation and tricuspid regurgitation. We have been asked to evaluate the patient for A. fib with RVR. Patient is seen today in the emergency center waiting for a bed on the cardiac stepdown unit. Patient states that yesterday she did not feel well and was feeling tired and fatigued with no energy. She was seen by Dr. Roca in the office and found to be in A. fib with RVR and was advised to go straight to the hospital. She also had lightheadedness. She denies any syncopal episodes. Patient relates that she also had vomiting for 3 days which seems to have resolved. She denies having any lower extremity edema. No fever. She does have a cough cough. No blood in her urine or stool. No history of stroke or seizure. Patient states she is feeling well now. She states she has been taking all of her medications as directed. She is a nonsmoker. Has been started on amiodarone drip. Blood pressure 9460, heart rate is 77 and telemetry is sinus rhythm. EKG atrial fibrillation, telemetry sinus rhythm WBC 13.5, he was over 13.4, platelet count 337. INR 1.1. Sodium 135, potassium 3.6, chloride 93, CO2 25, BUN 29 creatinine 5.7. Troponin negative 2. Magnesium 1.5. Triglycerides 135, cholesterol 90, LDL 22. TSH 2.43. Home cardiac medications: Eliquis 2.5 mg twice daily, aspirin 81 mg daily, midodrine 10 mg 3 times daily as needed, potassium chloride 10 mEq daily, Crestor 20 mild grams at bedtime. Echocardiogram performed 06/03/2023 reveals normal ventricular size and systolic function. Ydkl-in-[id number] mitral with mild tricuspid regurgitation and trace aortic regurgitation. Lexiscan stress test 05/2020 revealed Negative stress test. 07/07 Patient remains in a sinus rhythm, heart rate in the 70s to 100, blood pressure 116/81, pulse ox 93% on room air. Repeat blood work reveals hemoglobin 12.1, WBC 9.7. Sodium 134, potassium 2.9, BUN 25 creatinine 5.57. Yesterday, amiodarone drip was transitioned to oral 400 mg twice a day and patient was continued on eliquis as well as home cardiac medications. Physical examination: Gen: This is an 82-year-old female resting and appears to be comfortable and in no acute distress VS: reviewed HEENT: Head is atraumatic, normocephalic. Pupils equal, round. Sclerae is anic teric. NECK: Supple. No JVD. LUNGS: Clear to auscultation. No wheezes or rhonchi. No intercostal r etractions. HEART: Regular rate and rhythm. Soft systolic murmur. ABDOMEN: Soft No tenderness. EXTREMITIES: No pedal edema. No calf tenderness. NEUROLOGICAL: Patient is awake, alert and oriented x3. Assessment: Paroxysmal atrial fibrillation with RVR, converted to sinus rhythm Hypertension Dyslipidemia History of TIA End-stage renal disease on peritoneal dialysis Valvular heart disease with aortic, mitral and tricuspid regurgitation Plan: Resume patient's home cardiac medications Continue amiodarone oral 400 mg twice daily Continue eliquis 2.5 mg twice daily No need to repeat echocardiogram as this was done in June Patient is cleared for discharge cardiology may follow up with Dr. Roca in the office in one week. Nurse practitioner note has been reviewed, I agree with documented findings and plan of care. Patient was seen and examined. Objective - Vital Signs Vital signs: Vital Signs Temp 98.4 F 07/07/23 11:02 Pulse 78 07/07/23 11:02 Resp 17 07/07/23 11:02 BP 116/81 07/07/23 11:02 Pulse Ox 93 L 07/07/23 11:02 FiO2 Intake & Output 07/06/23 07/07/23 07/07/23 18:59 06:59 18:59 Intake Total 420 90 Balance 420 90 Intake: Oral 420 90 Other: Voiding Method Toilet Toilet Toilet # Voids 1 0 # Bowel Movements 1 - Labs CBC & Chem 7: 07/07/23 08:57 07/07/23 08:57 Labs: Abnormal Lab Results - Last 24 Hours (Table) 07/07/23 Range/Units 08:57 Sodium 134 L (137-145) mmol/L Potassium 2.9 L (3.5-5.1) mmol/L Chloride 93 L (98-107) mmol/L BUN 25 H (7-17) mg/dL Creatinine 5.57 H (0.52-1.04) mg/dL Glucose 111 H (74-99) mg/dL Total Protein 6.1 L (6.3-8.2) g/dL Albumin 3.0 L (3.5-5.0) g/dL
--- NOTE | 2023-07-07 15:16 | P.PN ---
Subjective Progress Note Date: 07/07/23 Hospital course: Patient is a very pleasant 82-year-old female with a past medical history of ESRD on peritoneal dialysis, paroxysmal atrial fibrillation, hypertension, hyperlipidemia, and history of TIA. She presented to the emergency department as directed by her straight line press setter for new onset A. fib RVR. Patient was reported to be found with new onset atrial fibrillation with RVR with ventricular rates reported as high as 180. She underwent full evaluation in the emergency depar tment. EKG completed showing atrial fibrillation with RVR at 136. Chest x-ray negative for acute cardiopulmonary process. CBC showing leukocytosis with WBC count of 13.5 otherwise normal findings. Coordination profile normal findings. BMP showing sodium 135, chloride 93, potassium 3.6, renal function consistent with ESRD with BUN 29, creatinine 5.72 and GFR 6. Magnesium was low at 1.5. Liver profile unremarkable. Troponin negative at less than 0.012. TSH normal findings at 2.430. Patient was started on amiodarone infusion and admitted under our services for atrial fibrillation with RVR. Consultation was placed to cardiology. Troponins trended overnight negative at less than 0.0122 draws. Lipid profile unremarkable. Physical exam: Patient seen and fully evaluated at bedside this morning. Patient reporting significant nausea this morning and vomiting. Vital signs reviewed and stable. General: Nontoxic, no distress and appears stated age. Derm: Skin warm and dry, normal coloration for ethnicity. Head: Atraumatic, normocephalic and symmetric. Eyes: EOMs intact, no lid lag, and anicteric sclera Mouth: no lip lesions, mucus membranes moist Cardiovascular: regular rate and rhythm with normal S1S2, no murmur, positive posterior tibial pulses bilaterally, and cap refill < 2 seconds. Lungs: Respirations even, regular, and unlabored on room air. Lungs CTA bilater ally, no rhonchi, no rales, no wheezing, and no accessory muscle usage. Abdominal: soft, nontender to palpation, no guarding, no appreciable organomegaly Ext: ROM intact. No gross muscle atrophy, no edema, no contractures Neuro: Speech clear, face symmetrical and CN II-XII grossly intact with no noted focal neuro deficits Psych: Alert and oriented to person, place, time, and situation. Appropriate and pleasant affect. Assessment and Plan of Care: Atrial fibrillation with RVR, converted to normal sinus rhythm Hypertension Hyperlipidemia History of TIA Chest pain, rule out acute coronary event -Cardiology following, reviewed and recommended. -Continue Telemetry monitoring. -Patient converted to normal sinus mechanism, amiodarone infusion was discontinued and patient was started on oral amiodarone 400 mg twice daily. -Continue daily medication regimen with Eliquis 2.5 mg twice daily, atorvastatin 40 mg nightly, and metoprolol 50 mg twice daily. -Lipid profile with a.m. labs. -Echocardiogram ESRD on peritoneal dialysis Nephrology consulted for management of peritoneal dialysis. Intractable nausea and vomiting -Consult placed to gastroenterology, appreciate recommendations. Patient will likely need outpatient EGD. -Patient to continue with Zofran 4 mg IVP every 8 hours and Compazine 10 mg by mouth every 6 hours as needed for nausea or vomiting. -Patient was started on gentle IV fluid hydration by nephrology with 0.9% normal saline at 75 mL per hour. Hypokalemia Potassium 2.9. Patient was given 40 mEq of potassium chloride by mouth every 2 hours 2 doses. We will repeat BMP with a.m. labs. Hypomagnesemia Magnesium 1.6 order placed for magnesium sulfate 2 g IVPB 1 dose. Data reviewed: Vital signs reviewed blood pressure 112/82, heart rate 109, respiratory rate 17, temp 97.7F, and SpO2 93% on room air. Morning labs reviewed. Sodium 134, chloride 93, potassium low at 2.9 and renal function consistent with ESRD with BUN 1225, creatinine 5.57, GFR 7. Magnesium also low 1.6. CODE STATUS: Full code DVT prophylaxis: Eliquis Anticipated discharge date: Clinical course to determine Anticipated discharge place: Clinical course to determine Patient was seen independently by Nurse Pracitioner. This document was prepared using [employer] dictation software. Please allow for errors in associate professor of management, while rare they do occur. Paul Ryan NP rendered care for this patient independently, reviewed the findings and plan as documented in the note above. I did not physically speak with or examine the patient on this date. Objective - Vital Signs Vital signs: Vital Signs Temp 97.7 F 07/07/23 08:05 Pulse 109 H 07/07/23 08:05 Resp 17 07/07/23 08:05 BP 112/82 07/07/23 08:05 Pulse Ox 93 L 07/07/23 08:05 FiO2 Intake & Output 07/06/23 07/07/23 07/07/23 18:59 06:59 18:59 Intake Total 420 90 Balance 420 90 Intake: Oral 420 90 Other: Voiding Method Toilet Toilet # Voids 1 0 # Bowel Movements 1 - Labs CBC & Chem 7: 07/08/23 08:07 07/08/23 08:07
[2023-07-07] MEDS: FERROUS SULFATE 325 MG TAB PO SCH (15:21)
[2023-07-07] MEDS: POTASSIUM CHLORIDE ER 20 MEQ TAB.ER PO SCH (15:34)
[2023-07-07] MEDS: MAGNESIUM SULFATE-D5W PMX 1 GM in DEXTROSE/WATER 1 100ML.BAG IVPB SCH (17:29)
[2023-07-07] MEDS: SODIUM CHLORIDE 0.9% 1,000 ML IV SCH (17:31)
[2023-07-07 21:55] LABS: Bacteria,Urine Moderate /hpf; Mucus,Urine Rare /hpf; RBC,Urine 1 /hpf (0-5); Squamous Epithelial Cell,Urine 3 /hpf (0-4); WBC,Urine 8 /hpf (0-5)
[2023-07-07 21:58] LABS: Appearance,Urine Clear (Clear); Color,Urine Light Yellow
[2023-07-07 21:59] LABS: Bilirubin,Urine Negative (Negative); Glucose,Urine (UA) Negative (Negative); Ketones,Urine Trace (Negative); Protein,Urine 2+ (Negative)
[2023-07-07 22:00] LABS: Blood,Urine Small (Negative); Leukocyte Esterase,Urine Negative (Negative); Nitrite,Urine Negative (Negative); Urobilinogen,Urine <2.0 mg/dL (<2.0)
[2023-07-07] MEDS: POTASSIUM CHLORIDE 10 MEQ in WATER FOR INJECTION 1 100ML.BAG IVPB SCH (23:33)
[2023-07-08] MEDS: POTASSIUM BICARBONATE/CIT AC 20 MEQ TABLET.EFF PO ONE (02:11)
[2023-07-08 08:45] LABS: ALT 19 U/L (4-34); AST 29 U/L (14-36); African American GFR (CKD) 8 (>60 ml/min/1.73 sqM); Albumin 2.8 g/dL (3.5-5.0); Alkaline Phosphatase 93 U/L (38-126); Anion Gap 12 mmol/L; Blood Urea Nitrogen 20 mg/dL (7-17); Calcium 9.4 mg/dL (8.4-10.2); Carbon Dioxide 26 mmol/L (22-30); Chloride 94 mmol/L (98-107); Glucose 146 mg/dL (74-99); Magnesium 2.1 mg/dL (1.6-2.3); Non-African American GFR(CKD) 7 (>60 ml/min/1.73 sqM); Potassium 3.6 mmol/L (3.5-5.1); Sodium 132 mmol/L (137-145); Total Bilirubin 0.7 mg/dL (0.2-1.3); Total Protein 5.8 g/dL (6.3-8.2)
[2023-07-08 09:00] LABS: HCT 36.2 % (34.0-46.0); HGB 11.1 gm/dL (11.4-16.0); Hypochromasia Slight; MCHC 30.6 g/dL (31.0-37.0); MCV 94.8 fL (80.0-100.0); Mean Platelet Volume 8.4; Platelet Count 263 k/uL (150-450); RBC 3.81 m/uL (3.80-5.40); RDW 15.5 % (11.5-15.5); WBC 8.8 k/uL (3.8-10.6)
--- NOTE | 2023-07-08 10:26 | P.DS ---
Providers Date of admission: 07/05/23 19:11 Expected date of discharge: 07/08/23 Attending physician: Ashlee Hoskins DO Consults: 07/05/23 19:11 Consult Physician Urgent Consulting Provider: Kevyn Roca Consult Reason/Comments: Atrial fibrillation with rapid ventricular rate. Do you want consulting provider notified?: Already Contacted 07/05/23 23:54 Consult Physician Urgent Consulting Provider: Edmundo Hernandez Consult Reason/Comments: peritoneal dialysis Do you want consulting provider notified?: Yes 07/07/23 15:10 Consult Physician Routine Consulting Provider: Yenni Christopher Consult Reason/Comments: intractable nausea and vomiting Do you want consulting provider notified?: Yes Primary care physician: [facility] Course: Discharge Diagnosis: Atrial fibrillation with RVR, converted to normal sinus rhythm. Patient with history of paroxysmal atrial fibrillation. Patient initially A. fib RVR rates ranging from 130s to 180s and after starting on amiodarone infusion and converted to normal sinus mechanism. Patient has maintained normal sinus rhythm since converting. Patient to continue anticoagulation with Eliquis 2.5 mg twice daily and was started on metoprolol 50 mg twice daily and amiodarone 400 mg twice daily 7 days and to taper down to 200 mg twice daily until further instructed by counterintelligence analyst on follow-up visit in one week. Intractable nausea and vomiting, patient reporting approximately 2-3 episodes of vomiting daily ongoing for several weeks to months. She is on home Compazine for this issue. GI was consulted and patient evaluated clearing patient from cardiac perspective for discharge and outpatient follow-up in their office. Hypertension Hyperlipidemia History of TIA Chest pain, rule out acute coronary event ESRD on peritoneal dialysis. Nephrology followed throughout hospitalization and managed peritoneal dialysis. Hypokalemia, resolved. Hypomagnesemia, resolved. Hospital Course: Patient is a very pleasant 82-year-old female with a past medical history of ESRD on peritoneal dialysis, paroxysmal atrial fibrillation, hypertension, hyperlipidemia, and history of TIA. She presented to the emergency department as directed by her counterintelligence analyst for new onset A. fib RVR. Patient was reported to be found with new onset atrial fibrillation with RVR with ventricular rates reported as high as 180. She underwent full evaluation in the emergency department. EKG completed showing atrial fibrillation with RVR at 136. Chest x-ray negative for acute cardiopulmonary process. CBC showing leukocytosis with WBC count of 13.5 otherwise normal findings. Coordination profile normal findings. BMP showing sodium 135, chloride 93, potassium 3.6, renal function consistent with ESRD with BUN 29, creatinine 5.72 and GFR 6. Magnesium was low at 1.5. Liver profile unremarkable. Troponin negative at less than 0.012. TSH normal findings at 2.430. Patient was started on amiodarone infusion and admitted under our services for atrial fibrillation with RVR. Consultation was placed to cardiology. Troponins trended overnight negative at less than 0.0122 draws. Lipid profile unremarkable. Patient with history of paroxysmal atrial fibrillation. Patient initially A. fib RVR rates ranging from 130s to 180s and after starting on amiodarone infusion and converted to normal sinus mechanism. Patient has maintained normal sinus rhythm since converting. PatiIntractable nausea and vomiting, patient reporting approximately 2-3 episodes of vomiting daily ongoing for several weeks to months. She is on home Compazine for this issue. GI was consulted and patient evaluated clearing patient from cardiac perspective for discharge and outpatient follow-up in their office. Patient to continue anticoagulation with Eliquis 2.5 mg twice daily and was started on metoprolol 50 mg twice daily and amiodarone 400 mg twice daily 7 days and to taper down to 200 mg twice daily until further instructed by counterintelligence analyst on follow-up visit in one week. Physical exam: Vital signs reviewed and stable. General: Nontoxic, no distress and appears stated age. Derm: Skin warm and dry, normal coloration for ethnicity. Head: Atraumatic, normocephalic and symmetric. Eyes: EOMs intact, no lid lag, and anicteric sclera Mouth: no lip lesions, mucus membranes moist Cardiovascular: regular rate and rhythm with normal S1S2, systolic murmur, positive posterior tibial pulses bilaterally, and cap refill < 2 seconds. Lungs: Respirations even, regular, and unlabored on room air. Lungs CTA bilaterally, no rhonchi, no rales, no wheezing, and no accessory muscle usage. Abdominal: soft, nontender to palpation, no guarding, no appreciable organomegaly. Peritoneal dialysis catheter lower abdomen no surrounding erythema or drainage. Ext: ROM intact. No gross muscle atrophy, no edema, no contractures Neuro: Speech clear, face symmetrical and CN II-XII grossly intact with no noted focal neuro deficits Psych: Alert and oriented to person, place, time, and situation. Appropriate and pleasant affect. A total of 37 minutes of time were spent preparing this complex discharge summary. Pt was discharged on 07/08/23 at 9:50 AM. Patient was seen independently by Nurse Practitioner. This document was prepared using [employer] dictation software. Please allow for errors in mortgage loan funder while rare they do occur. Paul Ryan NP rendered care for this patient independently, reviewed the findings and plan as documented in the note above. I did not physically speak with or examine the patient on this date. Patient Condition at Discharge: Stable Plan - Discharge Summary Discharge Rx Participant: Yes New Discharge Prescriptions: New Amiodarone [Cordarone] See Rx Instructions .ROUTE .COMPLEX 30 Days #72 tab Metoprolol Tartrate [Lopressor] 50 mg PO BID 30 Days #60 tab Continue Omeprazole [PriLOSEC] 20 mg PO HS [place]-3 Fatty Acids/Fish Oil [Fish Oil 1,000 mg Softgel] 1,000 mg PO BID allopurinoL [Zyloprim] 100 mg PO BID Estrogens, Conjugated Cream [Premarin Vaginal Cream] 1 applicator VAGINAL MOWEFR Aspirin 81 mg PO DAILY #60 tab Calcium Acetate [PhosLo] 667 mg PO BID-W/MEALS #60 tab Prochlorperazine [Compazine] 10 mg PO Q6H PRN #40 tab PRN Reason: Nausea And Vomiting Apixaban [Eliquis] 2.5 mg PO BID 90 Days #180 tab Sodium Bicarbonate Tab 650 mg PO BID Ferrous Sulfate [Iron (65 MG Elemental)] 325 mg PO DAILY hydrOXYzine HCL [Atarax] 10 mg PO DAILY Cholecalciferol [Vitamin D3 (25 Mcg = 1000 Iu)] 25 mcg PO DAILY Rosuvastatin [Crestor] 20 mg PO HS Liqua Martha Protein 1 dose PO BID hydrOXYzine HCL [Atarax] 20 mg PO HS Cranberry 4200mg 2 tab PO DAILY calcitrioL [Calcitriol] 0.25 mcg PO MO Potassium Chloride ER [K-Dur 10] 10 meq PO DAILY Midodrine HCl [ProAmatine] 10 mg PO TID PRN PRN Reason: SBP<110 Discontinued Cefuroxime [Ceftin] 250 mg PO BID Discharge Medication List [place]-3 Fatty Acids/Fish Oil [Fish Oil 1,000 mg Softgel] 1,000 mg PO BID 05/11/14 [History] Omeprazole [PriLOSEC] 20 mg PO HS 05/11/14 [History] allopurinoL [Zyloprim] 100 mg PO BID 05/22/17 [History] Ferrous Sulfate [Iron (65 MG Elemental)] 325 mg PO DAILY 11/03/21 [History] Sodium Bicarbonate Tab 650 mg PO BID 11/03/21 [History] hydrOXYzine HCL [Atarax] 10 mg PO DAILY 11/03/21 [History] Cholecalciferol [Vitamin D3 (25 Mcg = 1000 Iu)] 25 mcg PO DAILY 09/15/22 [History] Rosuvastatin [Crestor] 20 mg PO HS 09/15/22 [History] Cranberry 4200mg 2 tab PO DAILY 05/24/23 [History] Estrogens, Conjugated Cream [Premarin Vaginal Cream] 1 applicator VAGINAL MOWEFR 05/24/23 [History] Liqua Martha Protein 1 dose PO BID 05/24/23 [History] calcitrioL [Calcitriol] 0.25 mcg PO MO 05/24/23 [History] hydrOXYzine HCL [Atarax] 20 mg PO HS 05/24/23 [History] Aspirin 81 mg PO DAILY #60 tab 06/09/23 [Rx] Calcium Acetate [PhosLo] 667 mg PO BID-W/MEALS #60 tab 06/09/23 [Rx] Midodrine HCl [ProAmatine] 10 mg PO TID PRN 07/05/23 [History] Potassium Chloride ER [K-Dur 10] 10 meq PO DAILY 07/05/23 [History] Amiodarone [Cordarone] See Rx Instructions .ROUTE .COMPLEX 30 Days #72 tab 07/08/23 [Rx] Apixaban [Eliquis] 2.5 mg PO BID 90 Days #180 tab 07/08/23 [Rx] Metoprolol Tartrate [Lopressor] 50 mg PO BID 30 Days #60 tab 07/08/23 [Rx] Prochlorperazine [Compazine] 10 mg PO Q6H PRN #40 tab 07/08/23 [Rx] Follow up Appointment(s)/Referral(s): Cat Dobbs MD [STAFF PHYSICIAN] - 1 Week (please call office when open to make follow up appointment) Olga العلي MD [STAFF PHYSICIAN] - 07/20/23 2:45 pm (appointment with DR ROCA) Kevyn Roca MD [STAFF PHYSICIAN] - 1 Week Yenni Christopher MD [STAFF PHYSICIAN] - 07/19/23 2:45 pm Keith Riley DO [Primary Care Provider] - 07/15/23 11:00 am Patient Instructions/Handouts: A-fib (Atrial Fibrillation) (DC) Activity/Diet/Wound Care/Special Instructions: Activity: As tolerated. Take breaks as needed. Diet: Continue renal diet. Special Instructions: Take all of your medications as directed and remember to keep all of your doctor's appointments and follow-up as needed. Resume normal daily peritoneal dialysis. As discussed, you will need to follow up outpatient with your primary care doctor Dr. Riley, program evaluator Dr. Dobbs, counterintelligence analyst Dr. العلي, and environmental protection specialist Dr. Christopher. Thank you for allowing us to participate in your care, it was truly a pleasure having you for our patient!!! Discharge Disposition: HOME WITH HOME HEALTH SERVICES
[2023-07-08 11:26] VITALS: TEMP 97.7
--- NOTE | 2023-07-08 12:26 | P.PN ---
Subjective Patient is seen for follow-up for end-stage renal disease. She was admitted to the hospital with Dillon sampson with RVR. Patient converted to normal sinus rhythm and amiodarone has has been changed to oral. She remains on metoprolol. Patient has been complaining of nausea. Started on Compazine. She was also started on IV fluids yesterday. Blood pressure has improved. UA shows no evidence of UTI. Patient was evaluated by GI and there are plans to proceed with further workup as outpatient Objective - Vital Signs Vital signs: Vital Signs Temp 97.7 F 07/08/23 08:00 Pulse 61 07/08/23 08:00 Resp 16 07/08/23 08:00 BP 104/69 07/08/23 08:00 Pulse Ox 93 L 07/08/23 08:00 FiO2 Intake & Output 07/07/23 07/08/23 07/08/23 18:59 06:59 18:59 Intake Total 945 200 118 Output Total 50 Balance 945 150 118 Weight 80.5 kg Intake: Intake, IV Titration 75 Amount Sodium Chloride 0.9% 1, 75 000 ml @ 75 mls/hr IV . [id number] [facility] Rx#:[id number] Oral 870 200 118 Output: Urine 50 Other: Voiding Method Toilet Toilet Toilet # Voids 1 - Exam Patient is awake, comfortable, no acute distress Examination of the heart S1 and S2 Examination of the lungs bilateral breath sounds are heard Abdomen is soft nontender Examination of lower extremities shows no significant edema LOCAL BULK DRIVER exam grossly intact - Labs CBC & Chem 7: 07/08/23 08:07 07/08/23 08:07 Labs: Abnormal Lab Results - Last 24 Hours (Table) 07/07/23 07/08/23 07/08/23 Range/Units 21:24 08:07 08:07 Hgb 11.1 L (11.4-16.0) gm/dL MCHC 30.6 L (31.0-37.0) g/dL Sodium 132 L (137-145) mmol/L Chloride 94 L (98-107) mmol/L BUN 20 H (7-17) mg/dL Creatinine 5.34 H (0.52-1.04) mg/dL Glucose 146 H (74-99) mg/dL Total Protein 5.8 L (6.3-8.2) g/dL Albumin 2.8 L (3.5-5.0) g/dL Urine Protein 2+ H (Negative) Urine Ketones Trace H (Negative) Urine WBC 8 H (0-5) /hpf Urine Bacteria Moderate H (None) /hpf Urine Mucus Rare H (None) /hpf Assessment and Plan Assessment: 1. End-stage renal disease maintained on peritoneal dialysis 2. A. fib with RVR, controlled ventricular response now with IV amiodarone and metoprolol. Blood pressure is on the lower side, improved post IV fluids 3. CK D mineral bone disorder 4. 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 Patient was maintained on long-term IV antibiotics and also had CT drainage of the abscess. She was discharged on 06/09/2023. 5. Nausea and vomiting on and off, started Compazine. GI evaluation with EGD as outpatient Plan: Maintain PD exchanges with 1.5% solution to avoid excessive UF Continue with midodrine Follow-up as outpatient with cardiology and GI. Continue with Compazine and Protonix
--- NOTE | 2023-07-08 12:45 | P.CONS ---
History of Present Illness - Reason for Consult Consult date: 07/08/23 Intractable nausea and vomiting Requesting physician: Paul Ryan - Chief Complaint Atrial fibrillation - History of Present Illness This a pleasant 82-year-old female who was sent over to the emergency department for further evaluation for atrial fibrillation with RVR. Patient was being seen by her surgeon partner Dr. Roca it was noted to be in A. fib with RVR. She has a past medical history including atrial fibrillation on Eliquis, end-stage renal disease on peritoneal dialysis, hypertension, hyperlipidemia and history of TIA. Patient was started on an amiodarone infusion. During this hospitalization patient has been complaining that she's had some nausea and vomiting that happened usually twice a day in the morning and sometimes in the evening after meals. This has been ongoing for most days for the last 2 weeks duration. She denies any previous histories upper endoscopy. Denies any choking sensation. States that she had breakfast this morning without any emesis. She denies any coffee-ground emesis or hematemesis. Unclear of any new medications that she could be taking at home. Most current labs from yesterday WBC 9.7 hemoglobin 12.1 hematocrit 38 platelet count 242,000 sodium 134 potassium 2.9 BUN 25 creatinine 5.5 total bilirubin 0.8 AST 32 ALT 19 alkaline phosphatase 92 she currently denies any abdominal pain, no nausea or vomiting at this time. Denies any chest pain, shortness of breath, fevers or chills. Review of Systems REVIEW OF SYSTEMS: CARDIOPULMONARY: No chest pain or shortness of breath. Gastrointestinal: Denies any abdominal pain, dysphagia. Does have nausea and vomiting for last 2 weeks duration which she states usually occurs after a meal. No hematemesis, coffee-ground emesis. No rectal bleeding, or melena. GENITOURINARY: No dysuria or hematuria. MUSCULOSKELETAL: Reports normal range of motion. SKIN: No rashes. No jaundice. ENDOCRINE: No chills, fevers. No excessive weight gain or loss. No polydipsia or polyuria. PSYCHIATRIC: Unremarkable. NEUROLOGY: No change in mental status. Denies dizziness, headache. ENT: Vision unremarkable. CONSTITUTIONAL: No recent weight loss. No fever, chills, night sweats. 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 History of Any Multi-Drug Resistant Organisms: None Reported Past Surgical History: Section, Hysterectomy, Joint Replacement, Orthopedic Surgery Additional Past Surgical History / Comment(s): 3 C-Sections, hysterectomy with vaginal repair, bilateral total knees, R shoulder acromioplasty, excision distal clavicle rotator cuff repair, bilateral cataract removal with lens implants, L breast bx-benign, varicose vein stripping bilaterally, peritoneal HD cath Past Anesthesia/Blood Transfusion Reactions: No Reported Reaction Smoking Status: Never smoker - Past Family History Brother(s) Family Medical History: Renal Disease Father Family Medical History: Unable to Obtain Mother Family Medical History: Coronary Artery Disease (CAD), CVA/TIA Additional Family Medical History / Comment(s): Mother at 92 yrs of age. She had TIA's. Medications and Allergies Home Medications Medication Instructions Recorded Confirmed Type Devon-3 Fatty Acids/Fish Oil [Fish 1,000 mg PO BID 05/11/14 07/05/23 History Oil 1,000 mg Softgel] Omeprazole [PriLOSEC] 20 mg PO HS 05/11/14 07/05/23 History allopurinoL [Zyloprim] 100 mg PO BID 05/22/17 07/05/23 History Ferrous Sulfate [Iron (65 MG 325 mg PO DAILY 11/03/21 07/05/23 History Elemental)] Sodium Bicarbonate Tab 650 mg PO BID 11/03/21 07/05/23 History hydrOXYzine HCL [Atarax] 10 mg PO DAILY 11/03/21 07/05/23 History Cholecalciferol [Vitamin D3 (25 25 mcg PO DAILY 09/15/22 07/05/23 History Mcg = 1000 Iu)] Rosuvastatin [Crestor] 20 mg PO HS 09/15/22 07/05/23 History Cranberry 4200mg 2 tab PO DAILY 05/24/23 07/05/23 History Estrogens, Conjugated Cream 1 applicator VAGINAL MOWEFR 05/24/23 07/05/23 History [Premarin Vaginal Cream] Liqua Martha Protein 1 dose PO BID 05/24/23 07/05/23 History calcitrioL [Calcitriol] 0.25 mcg PO MO 05/24/23 07/05/23 History hydrOXYzine HCL [Atarax] 20 mg PO HS 05/24/23 07/05/23 History Apixaban [Eliquis] 2.5 mg PO BID #60 tab 06/09/23 07/05/23 Rx Aspirin 81 mg PO DAILY #60 tab 06/09/23 07/05/23 Rx Calcium Acetate [PhosLo] 667 mg PO BID-W/MEALS #60 tab 06/09/23 07/05/23 Rx Midodrine HCl [ProAmatine] 10 mg PO TID PRN 07/05/23 07/05/23 History Potassium Chloride ER [K-Dur 10] 10 meq PO DAILY 07/05/23 07/05/23 History Amiodarone [Cordarone] See Rx Instructions .ROUTE 07/08/23 Rx .COMPLEX 30 Days #72 tab Metoprolol Tartrate [Lopressor] 50 mg PO BID 30 Days #60 tab 07/08/23 Rx Prochlorperazine [Compazine] 10 mg PO Q6H PRN #40 tab 07/08/23 Rx Allergies Allergy/AdvReac Type Severity Reaction Status Date / Time levofloxacin [From Levaquin] Allergy Hallucinati Verified 07/05/23 19:46 ons losartan [Losartan] Allergy Unknown Verified 07/05/23 19:46 LUANA Inhibitors AdvReac Cough Verified 07/05/23 19:46 Physical Exam Vitals: Vital Signs Temp Pulse Resp BP Pulse Ox 07/08/23 04:00 97.5 F L 58 L 16 113/80 97 07/08/23 00:00 97.7 F 62 18 113/76 93 L 07/07/23 20:00 97.7 F 63 18 112/78 94 L 07/07/23 16:00 97.8 F 88 17 103/73 95 07/07/23 14:00 88 17 07/07/23 11:02 98.4 F 78 17 116/81 93 L 07/07/23 08:05 97.7 F 109 H 17 112/82 93 L 07/07/23 08:00 78 17 Intake and Output 07/07/23 07/07/23 07/08/23 14:59 22:59 06:59 Intake Total 405 540 Output Total 50 Balance 405 490 Intake: Intake, IV Titration 75 Amount Sodium Chloride 0.9% 1, 75 000 ml @ 75 mls/hr IV . [id number] [facility] Rx#:[id number] Oral 330 540 Output: Urine 50 Other: Voiding Method Toilet Toilet Toilet General appearance: The patient is alert, oriented, appears in no acute distress. HET: Head is normocephalic and atraumatic. Conjunctiva pink. Sclera anicteric. Neck: Supple without lymphadenopathy. Trachea midline. Heart: Regular. Lungs: Equal expansion, normal respiratory effort. Abdomen: Soft, nontender, nondistended with bowel sounds. No guarding or rig idity. Skin: No rashes. No jaundice. Extremities: Normal skin color and turgor. No pedal edema. Neurological: No focal deficits. Alert and oriented x3. Results CBC & Chem 7: 07/08/23 08:07 07/08/23 08:07 Labs: Abnormal Lab Results - Last 24 Hours (Table) 07/07/23 07/07/23 Range/Units 08:57 21:24 Sodium 134 L (137-145) mmol/L Potassium 2.9 L (3.5-5.1) mmol/L Chloride 93 L (98-107) mmol/L BUN 25 H (7-17) mg/dL Creatinine 5.57 H (0.52-1.04) mg/dL Glucose 111 H (74-99) mg/dL Total Protein 6.1 L (6.3-8.2) g/dL Albumin 3.0 L (3.5-5.0) g/dL Urine Protein 2+ H (Negative) Urine Ketones Trace H (Negative) Urine WBC 8 H (0-5) /hpf Urine Bacteria Moderate H (None) /hpf Urine Mucus Rare H (None) /hpf Assessment and Plan (1) Nausea & vomiting Narrative/Plan: 82-year-old female who came in for atrial fibrillation with RVR sent in by her surgeon partner had been mentioning some nausea and vomiting over last 2 weeks duration. However after reviewing her chart seems like this may be more of a chronic condition. She has some nausea and vomiting after meals at times. No cough current emesis or hematemesis. No previous history of upper endoscopy. Denies dysphagia. Unclear etiology of nausea and vomiting could be medication related. However seems to be improved this morning. Recommend PPI and continue antibiotics. Patient can follow-up with gastroenterology in the outpatient setting and consider endoscopic evaluation if needed at that time. Current Visit: No Status: Acute Code(s): R11.2 - NAUSEA WITH VOMITING, UNSPECIFIED SNOMED Code(s): 31147756 (2) End-stage renal disease on peritoneal dialysis Current Visit: Yes Status: Acute Code(s): N18.6 - END STAGE RENAL DISEASE; Z99.2 - DEPENDENCE ON RENAL DIALYSIS SNOMED Code(s): 453975778 (3) Atrial fibrillation with rapid ventricular response Current Visit: Yes Status: Acute Code(s): I48.91 - UNSPECIFIED ATRIAL FIBRILLATION SNOMED Code(s): 734183081666059 (4) Hyperlipidemia Current Visit: No Status: Acute Code(s): E78.5 - HYPERLIPIDEMIA, UNSPECIFIED SNOMED Code(s): 74310855 (5) Hypertension Current Visit: No Status: Acute Code(s): I10 - ESSENTIAL (PRIMARY) HYPERTENSION SNOMED Code(s): 57404935 Plan: 1. Continue symptomatic and supportive care 2. Diet as tolerated 3. Protonix 40 mg daily 4. Antiemetics as needed 5. No plans on endoscopic evaluation 6. If nausea vomiting continues patient follow-up with gastroenterology in the outpatient setting and can consider endoscopic evaluation at that time Thank you for this consultation, patient is cleared from gastroenterology for discharge and we will sign off at this time. Dr. Yuki Christopher I agree with the dictator's note, documented as a scribe by Jes Walker.
--- NOTE | 2023-07-08 13:02 | P.PN ---
Subjective Progress Note Date: 07/08/23 History of present illness: This is an 82 year old female patient of Dr. Roca with past medical history of hypertension, dyslipidemia, history of TIA, end-stage renal disease on peritoneal dialysis, valvular heart disease with aortic, mitral regurgitation and tricuspid regurgitation. We have been asked to evaluate the patient for A. fib with RVR. Patient is seen today in the emergency center waiting for a bed on the cardiac stepdown unit. Patient states that yesterday she did not feel well and was feeling tired and fatigued with no energy. She was seen by Dr. Roca in the office and found to be in A. fib with RVR and was advised to go straight to the hospital. She also had lightheadedness. She denies any syncopal episodes. Patient relates that she also had vomiting for 3 days which seems to have resolved. She denies having any lower extremity edema. No fever. She does have a cough cough. No blood in her urine or stool. No history of stroke or seizure. Patient states she is feeling well now. She states she has been taking all of her medications as directed. She is a nonsmoker. Has been started on amiodarone drip. Blood pressure 9460, heart rate is 77 and telemetry is sinus rhythm. EKG atrial fibrillation, telemetry sinus rhythm WBC 13.5, he was over 13.4, platelet count 337. INR 1.1. Sodium 135, potassium 3.6, chloride 93, CO2 25, BUN 29 creatinine 5.7. Troponin negative 2. Magnesium 1.5. Triglycerides 135, cholesterol 90, LDL 22. TSH 2.43. Home cardiac medications: Eliquis 2.5 mg twice daily, aspirin 81 mg daily, midodrine 10 mg 3 times daily as needed, potassium chloride 10 mEq daily, Crestor 20 mild grams at bedtime. Echocardiogram performed 06/03/2023 reveals normal ventricular size and systolic function. [id number] mitral with mild tricuspid regurgitation and trace aortic regurgitation. Lexiscan stress test 05/2020 revealed Negative stress test. 07/07 Patient remains in a sinus rhythm, heart rate in the 70s to 100, blood pressure 116/81, pulse ox 93% on room air. Repeat blood work reveals hemoglobin 12.1, WBC 9.7. Sodium 134, potassium 2.9, BUN 25 creatinine 5.57. Yesterday, amiodarone drip was transitioned to oral 400 mg twice a day and patient was continued on eliquis as well as home cardiac medications. 07/08 Patient had episode of nausea vomiting this morning. She is feeling okay now. Telemetry is a sinus rhythm heart rate is in the 60s, blood pressure 104/69, she is afebrile, pulse ox 93% on room air. Physical examination: Gen: This is an 82-year-old female resting and appears to be comfortable and in no acute distress VS: reviewed HEENT: Head is atraumatic, normocephalic. Pupils equal, round. Sclerae is anicteric. NECK: Supple. No JVD. LUNGS: Clear to auscultation. No wheezes or rhonchi. No intercostal retractions. HEART: Regular rate and rhythm. Soft systolic murmur. ABDOMEN: Soft No tenderness. EXTREMITIES: No pedal edema. No calf tenderness. NEUROLOGICAL: Patient is awake, alert and oriented x3. Assessment: Paroxysmal atrial fibrillation with RVR, converted to sinus rhythm Hypertension Dyslipidemia History of TIA End-stage renal disease on peritoneal dialysis Valvular heart disease with aortic, mitral and tricuspid regurgitation Plan: Resume patient's home cardiac medications Continue amiodarone oral 400 mg twice daily 7 days and then 200 mg twice daily Continue eliquis 2.5 mg twice daily Patient is cleared for discharge cardiology may follow up with Dr. Roca in the office in one week. Nurse practitioner note has been reviewed, I agree with documented findings and plan of care. Patient was seen and examined. Objective - Vital Signs Vital signs: Vital Signs Temp 97.7 F 07/08/23 08:00 Pulse 61 07/08/23 08:00 Resp 16 07/08/23 08:00 BP 104/69 07/08/23 08:00 Pulse Ox 93 L 07/08/23 08:00 FiO2 Intake & Output 07/07/23 07/08/23 07/08/23 18:59 06:59 18:59 Intake Total 945 200 118 Output Total 50 Balance 945 150 118 Weight 80.5 kg Intake: Intake, IV Titration 75 Amount Sodium Chloride 0.9% 1, 75 000 ml @ 75 mls/hr IV . [id number] [facility] Rx#:[id number] Oral 870 200 118 Output: Urine 50 Other: Voiding Method Toilet Toilet Toilet # Voids 1 - Labs CBC & Chem 7: 07/08/23 08:07 07/08/23 08:07 Labs: Abnormal Lab Results - Last 24 Hours (Table) 07/07/23 07/08/23 07/08/23 Range/Units 21:24 08:07 08:07 Hgb 11.1 L (11.4-16.0) gm/dL MCHC 30.6 L (31.0-37.0) g/dL Sodium 132 L (137-145) mmol/L Chloride 94 L (98-107) mmol/L BUN 20 H (7-17) mg/dL Creatinine 5.34 H (0.52-1.04) mg/dL Glucose 146 H (74-99) mg/dL Total Protein 5.8 L (6.3-8.2) g/dL Albumin 2.8 L (3.5-5.0) g/dL Urine Protein 2+ H (Negative) Urine Ketones Trace H (Negative) Urine WBC 8 H (0-5) /hpf Urine Bacteria Moderate H (None) /hpf Urine Mucus Rare H (None) /hpf
[2023-07-08 15:03] VITALS: BP 89/60; PULSE 58; RESP 18
== END 2023-07-08 14:47 | disposition home health service (06) | DRG 308 ==
LOC: EC 17:31 → 3SCARD 19:11
PROVIDERS: ADMIT Internal Medicine; ATTEND Internal Medicine
PROC: 3E1M39Z Irrigation of Peritoneal Cavity using Dialysate, Percutaneous Approach (ICD-10-PCS; principal; 2023-07-06)
DX: I48.0 Paroxysmal atrial fibrillation (principal); N18.6 End stage renal disease; I13.11 Hypertensive heart and chronic kidney disease without heart failure, with stage 5 chronic kidney disease, or end stage renal disease; Z99.2 Dependence on renal dialysis; I08.3 Combined rheumatic disorders of mitral, aortic and tricuspid valves; E83.42 Hypomagnesemia; E87.6 Hypokalemia; E78.5 Hyperlipidemia, unspecified; M89.8X9 Other specified disorders of bone, unspecified site; R03.1 Nonspecific low blood-pressure reading; R11.2 Nausea with vomiting, unspecified; Z96.653 Presence of artificial knee joint, bilateral; Z86.73 Personal history of transient ischemic attack (TIA), and cerebral infarction without residual deficits; Z82.49 Family history of ischemic heart disease and other diseases of the circulatory system; Z79.01 Long term (current) use of anticoagulants; Z79.82 Long term (current) use of aspirin; Z79.899 Other long term (current) drug therapy; Z88.8 Allergy status to other drugs, medicaments and biological substances; Z87.440 Personal history of urinary (tract) infections
CPT/HCPCS: 36415; 71045; 80053; 80061; 81001; 83735; 84443; 84484; 85025; 85027; 85610; 85730; 93005; 96365; 99291

== ENCOUNTER 2023-07-20 09:32 | Inpatient (IN) | payer MEDICARE ==
[2023-07-20] MEDS ORDERED: ONDANSETRON 4 MG/2 ML VIAL IVP STA (09:59)
[2023-07-20] MEDS ORDERED: FAMOTIDINE 20 MG/2 ML VIAL IV STA (09:59)
[2023-07-20] MEDS ORDERED: SODIUM CHLORIDE 0.9% 1,000 ML IV STA (09:59)
--- NOTE | 2023-07-20 10:00 | ED ---
General Adult HPI - General Chief complaint: Nausea/Vomiting/Diarrhea Stated complaint: vomiting Time Seen by Provider: 07/20/23 09:46 Source: patient, RN notes reviewed Mode of arrival: wheelchair Limitations: no limitations - History of Present Illness Initial comments: Patient is a pleasant 82-year-old female presenting to the emergency department with concerns with nausea vomiting. Onset of symptoms was 2-3 days ago. Patient still has nausea. Decreased appetite. Decreased oral intake. No abdominal pain. No fever. No history of chronic similar symptoms previously. No diarrhea. Patient does have a little bit of lightheadedness as well. - Related Data Home Medications Medication Instructions Recorded Confirmed [place]-3 Fatty Acids/Fish Oil [Fish 1,000 mg PO BID 05/11/14 07/05/23 Oil 1,000 mg Softgel] Omeprazole [PriLOSEC] 20 mg PO HS 05/11/14 07/05/23 allopurinoL [Zyloprim] 100 mg PO BID 05/22/17 07/05/23 Ferrous Sulfate [Iron (65 MG 325 mg PO DAILY 11/03/21 07/05/23 Elemental)] Sodium Bicarbonate Tab 650 mg PO BID 11/03/21 07/05/23 hydrOXYzine HCL [Atarax] 10 mg PO DAILY 11/03/21 07/05/23 Cholecalciferol [Vitamin D3 (25 25 mcg PO DAILY 09/15/22 07/05/23 Mcg = 1000 Iu)] Rosuvastatin [Crestor] 20 mg PO HS 09/15/22 07/05/23 Cranberry 4200mg 2 tab PO DAILY 05/24/23 07/05/23 Estrogens, Conjugated Cream 1 applicator VAGINAL MOWEFR 05/24/23 07/05/23 [Premarin Vaginal Cream] Liqua Martha Protein 1 dose PO BID 05/24/23 07/05/23 calcitrioL [Calcitriol] 0.25 mcg PO MO 05/24/23 07/05/23 hydrOXYzine HCL [Atarax] 20 mg PO HS 05/24/23 07/05/23 Midodrine HCl [ProAmatine] 10 mg PO TID PRN 07/05/23 07/05/23 Potassium Chloride ER [K-Dur 10] 10 meq PO DAILY 07/05/23 07/05/23 Previous Rx's Medication Instructions Recorded Aspirin 81 mg PO DAILY #60 tab 06/09/23 Calcium Acetate [PhosLo] 667 mg PO BID-W/MEALS #60 tab 06/09/23 Amiodarone [Cordarone] See Rx Instructions .ROUTE 07/08/23 .COMPLEX 30 Days #72 tab Apixaban [Eliquis] 2.5 mg PO BID 90 Days #180 tab 07/08/23 Metoprolol Tartrate [Lopressor] 50 mg PO BID 30 Days #60 tab 07/08/23 Prochlorperazine [Compazine] 10 mg PO Q6H PRN #40 tab 07/08/23 Allergies Allergy/AdvReac Type Severity Reaction Status Date / Time levofloxacin [From Levaquin] Allergy Hallucinati Verified 07/20/23 09:43 ons losartan [Losartan] Allergy Unknown Verified 07/20/23 09:43 LUANA Inhibitors AdvReac Cough Verified 07/20/23 09:43 Review of Systems ROS Statement: Those systems with pertinent positive or pertinent negative responses have been documented in the HPI. ROS Other: All systems not noted in ROS Statement are negative. Constitutional: Denies: fever Eyes: Denies: eye pain ENT: Denies: ear pain Respiratory: Denies: dyspnea Cardiovascular: Denies: chest pain Gastrointestinal: Reports: nausea, vomiting. Denies: abdominal pain, diarrhea, constipation Past Medical History Past Medical History: CVA/TIA, Hyperlipidemia, Hypertension, Renal Disease Additional Past Medical History / Comment(s): TIA, ESRD on periotneal dialysis, UTIs, dizziness, gout, arthiritis, back pain with UTIs. History of Any Multi-Drug Resistant Organisms: None Reported Past Surgical History: Section, Hysterectomy, Joint Replacement, Orthopedic Surgery Additional Past Surgical History / Comment(s): 3 C-Sections, hysterectomy with vaginal repair, bilateral total knees, R shoulder acromioplasty, excision distal clavicle rotator cuff repair, bilateral cataract removal with lens implants, L breast bx-benign, varicose vein stripping bilaterally, peritoneal HD cath Past Anesthesia/Blood Transfusion Reactions: No Reported Reaction Past Psychological History: No Psychological Hx Reported Smoking Status: Never smoker Past Alcohol Use History: None Reported Past Drug Use History: None Reported - Past Family History Brother(s) Family Medical History: Renal Disease Father Family Medical History: Unable to Obtain Mother Family Medical History: Coronary Artery Disease (CAD), CVA/TIA Additional Family Medical History / Comment(s): Mother at 92 yrs of age. She had TIA's. General Exam Limitations: no limitations General appearance: alert, in no apparent distress Head exam: Present: normocephalic Eye exam: Present: normal appearance ENT exam: Present: mucous membranes dry Neck exam: Present: normal inspection Respiratory exam: Present: normal lung sounds bilaterally Cardiovascular Exam: Present: regular rate, normal rhythm GI/Abdominal exam: Present: soft. Absent: tenderness Neurological exam: Present: alert Psychiatric exam: Present: normal affect, normal mood Skin exam: Present: normal color Course Vital Signs 07/20/23 09:35 Temperature 99.2 F Pulse Rate 100 Respiratory 18 Rate Blood Pressure 109/64 O2 Sat by Pulse 95 Oximetry Medical Decision Making - Medical Decision Making Was pt. sent in by a medical professional or institution (, PA, DETECTIVE AND INTELLIGENCE ANALYST, urgent care, hospital, or prison...) When possible be specific @ -No Did you speak to anyone other than the patient for history (EMS, parent, family, police, friend...)? What history was obtained from this source @ -Family is present and helps provide history including other concerns that patient has weakness and is unable to take care of herself Did you review nursing and triage notes (agree or disagree)? Why? @ -I reviewed and agree with nursing and triage notes Were old charts reviewed (outside hosp., previous admission, EMS record, old EKG, old radiological studies, urgent care reports/EKG's, prison records)? Report findings @ -Previous admission reviewed including creatinine Differential Diagnosis (chest pain, altered mental status, abdominal pain women, abdominal pain men, vaginal bleeding, weakness, fever, dyspnea, syncope, headache, dizziness, GI bleed, back pain, seizure, CVA, palpatations, mental health, musculoskeletal)? @ -Differential Abdominal Pain Women: Appendicitis, Cholecystitis, diverticulosis, ischemic bowel, pancreatitis, hepatitis, UTI, gastroenteritis, AAA, incarcerated hernia, bowel obstruction, constipation, inflammatory bowel, hepatitis, peptic ulcer disease, splenic infarction, perforated viscus, vulvitis, ovarian torsion, PID, kidney stone, placenta abruption, this is not meant to be an all-inclusive list EKG interpreted by me (3pts min.). @ -As above X-rays interpreted by me (1pt min.). @ -None done CT interpreted by me (1pt min.). @ -None done U/S interpreted by me (1pt. min.). @ -None done What testing was considered but not performed or refused? (CT, X-rays, U/S, labs)? Why? @ -None What meds were considered but not given or refused? Why? @ -None Did you discuss the management of the patient with other professionals (professionals i.e. Dr., PA, DETECTIVE AND INTELLIGENCE ANALYST, lab, RT, psych nurse, child protective services social worker, psychiatric technician, teacher, personnel training officer, insurance case manager)? Give summary @ -Case was discussed with Dr. Moy. She does not feel patient needs to be admitted based of laboratory data here however with family concerns and patient being unable to take care of herself she is agreeable to hold patient for probable placement. Was smoking cessation discussed for >3mins.? @ -No Was critical care preformed (if so, how long)? @ -No Were there social determinants of health that impacted care today? How? (Ho melessness, low income, unemployed, alcoholism, drug addiction, transportation, low edu. Level, literacy, decrease access to med. care, shelter, rehab)? @ -No Was there de-escalation of care discussed even if they declined (Discuss DNR or withdrawal of care, Hospice)? DNR status @ -No What co-morbidities impacted this encounter? (DM, HTN, Smoking, COPD, CAD, Cancer, CVA, ARF, Chemo, Hep., AIDS, mental health diagnosis, sleep apnea, morbid obesity)? @ -None Was patient admitted / discharged? Hospital course, mention meds given and route, prescriptions, significant lab abnormalities, going to OR and other pertinent info. @ -Patient reevaluated. Patient and family updated. Patient is feeling somewhat better. Patient will be admitted with social work consult. Undiagnosed new problem with uncertain prognosis? @ -No Drug Therapy requiring intensive monitoring for toxicity (Heparin, Nitro, Insulin, Cardizem)? @ -No Were any procedures done? @ -No Diagnosis/symptom? @ -Vomiting, weakness Acute, or Chronic, or Acute on Chronic? @ -, Acute, acute Uncomplicated (without systemic symptoms) or Complicated (systemic symptoms)? @ -default Side effects of treatment? @ -No Exacerbation, Progression, or Severe Exacerbation? @ -No Poses a threat to life or bodily function? How? (Chest pain, USA, AR, pneumonia, PE, COPD, DKA, ARF, appy, cholecystitis, CVA, Diverticulitis, Homicidal, Suicidal, threat to staff... and all critical care pts) @ -No - Lab Data Result diagrams: 07/20/23 10:07 07/20/23 10:07 Lab Results 07/20/23 07/20/23 Range/Units 10:07 10:07 WBC 19.0 H (3.8-10.6) k/uL RBC 3.98 (3.80-5.40) m/uL Hgb 11.6 (11.4-16.0) gm/dL Hct 35.9 (34.0-46.0) % MCV 90.2 (80.0-100.0) fL MCH 29.2 (25.0-35.0) pg MCHC 32.3 (31.0-37.0) g/dL RDW 16.3 H (11.5-15.5) % Plt Count 236 (150-450) k/uL MPV 8.0 Neutrophils % 93 % Lymphocytes % 3 % Monocytes % 3 % Eosinophils % 1 % Basophils % 0 % Neutrophils # 17.6 H (1.3-7.7) k/uL Lymphocytes # 0.6 L (1.0-4.8) k/uL Monocytes # 0.6 (0-1.0) k/uL Eosinophils # 0.1 (0-0.7) k/uL Basophils # 0.1 (0-0.2) k/uL Anisocytosis Slight Sodium 133 L (137-145) mmol/L Potassium 4.2 (3.5-5.1) mmol/L Chloride 95 L (98-107) mmol/L Carbon Dioxide 24 (22-30) mmol/L Anion Gap 14 mmol/L BUN 35 H (7-17) mg/dL Creatinine 7.40 H* (0.52-1.04) mg/dL Est GFR (CKD-EPI)AfAm 5 (>60 ml/min/1.73 sqM) Est GFR (CKD-EPI)NonAf 5 (>60 ml/min/1.73 sqM) Glucose 93 (74-99) mg/dL Calcium 9.2 (8.4-10.2) mg/dL Total Bilirubin 1.1 (0.2-1.3) mg/dL AST 32 (14-36) U/L ALT 23 (4-34) U/L Alkaline Phosphatase 97 (38-126) U/L Total Protein 6.1 L (6.3-8.2) g/dL Albumin 2.9 L (3.5-5.0) g/dL Amylase 68 (30-110) U/L Lipase 145 (23-300) U/L Disposition Clinical Impression: Weakness, Vomiting Disposition: ADMITTED IP TO THIS HOSP Condition: Stable Is patient prescribed a controlled substance at d/c from ED?: No Referrals: Keith Riley DO [Primary Care Provider] - 1-2 days Time of Disposition: 12:22
[2023-07-20 10:16] LABS: Anisocytosis Slight; Basophils # (A) 0.1 k/uL (0-0.2); Basophils % (A) 0 %; Eosinophils # (A) 0.1 k/uL (0-0.7); Eosinophils % (A) 1 %; HCT 35.9 % (34.0-46.0); HGB 11.6 gm/dL (11.4-16.0); Lymphocytes # (A) 0.6 k/uL (1.0-4.8); Lymphocytes % (A) 3 %; MCH 29.2 pg (25.0-35.0); MCHC 32.3 g/dL (31.0-37.0); MCV 90.2 fL (80.0-100.0); Monocytes # (A) 0.6 k/uL (0-1.0); Monocytes % (A) 3 %; Neutrophils # (A) 17.6 k/uL (1.3-7.7); Neutrophils % (A) 93 %; Platelet Count 236 k/uL (150-450); RBC 3.98 m/uL (3.80-5.40); RDW 16.3 % (11.5-15.5)
[2023-07-20 10:39] LABS: ALT 23 U/L (4-34); AST 32 U/L (14-36); African American GFR (CKD) 5 (>60 ml/min/1.73 sqM); Albumin 2.9 g/dL (3.5-5.0); Alkaline Phosphatase 97 U/L (38-126); Amylase 68 U/L (30-110); Anion Gap 14 mmol/L; Blood Urea Nitrogen 35 mg/dL (7-17); Calcium 9.2 mg/dL (8.4-10.2); Carbon Dioxide 24 mmol/L (22-30); Chloride 95 mmol/L (98-107); Glucose 93 mg/dL (74-99); Lipase 145 U/L (23-300); Non-African American GFR(CKD) 5 (>60 ml/min/1.73 sqM); Sodium 133 mmol/L (137-145); Total Bilirubin 1.1 mg/dL (0.2-1.3); Total Protein 6.1 g/dL (6.3-8.2)
[2023-07-20 10:59] LABS: Potassium 4.2 mmol/L (3.5-5.1)
[2023-07-20] MEDS ORDERED: NALOXONE 0.4 MG/ML 1 ML VIAL IV PRN (12:23)
[2023-07-20] MEDS ORDERED: SODIUM CHLORIDE 0.9% 1,000 ML IV ONE (13:12)
[2023-07-20] MEDS ORDERED: MIDODRINE 5 MG TAB PO PRN (14:27)
--- NOTE | 2023-07-20 15:49 | P.HPIM ---
History of Present Illness H&P Date: 07/20/23 Patient is a 82-year-old female with history of end-stage renal disease on peritoneal dialysis, atrial fibrillation, presenting with nausea and vomiting and lightheadedness. She claims that she has been having issues with nausea and vomiting persistently for the last 6 weeks, was resolving after her last hospitalization. However, over the last 2 days, her nausea and vomiting has worsened. She denies any other GI symptoms. She denies any fevers, but did have chills and likely rigors. She denies any chest pain, shortness of breath, abdominal pain. She makes very minimal urine. She denies any dysuria or any other urinary symptoms. She denies any recent traveling or sick contacts. Her also with peritoneal dialysis, and has been using sterile technique. In the ED, temperature was 99.2, pulse 100, respiratory rate 18, blood pressure down to 83/52, saturating well on room air. White count 19, neutrophilic predominant, sodium 133, potassium 4.2, creatinine 7.4. She was given 2 L of normal saline in the ER. She is admitted for dehydration, nausea, vomiting. Nephrology was consulted. Pertinent positives and negatives as discussed in HPI, a complete review of systems was performed and all other systems are negative. Patient seen and examined at bedside. Vital signs reviewed General: nontoxic, no distress, appears at stated age Derm: warm, dry, PD catheter clean, no erythema noted Head: atraumatic, normocephalic, symmetric Eyes: EOMI, no lid lag, anicteric sclera, pupils equal round reactive to light ENT: Nose and ears atraumatic Neck: No thyromegaly, supple Mouth: no lip lesion, mucus membranes moist Cardiovascular: S1S2 reg, no murmur, no edema Lungs: clear to auscultation bilateral, no rhonchi, no rales, no wheeze, no accessory muscle use Abdominal: soft, nontender to palpation, no guarding, no appreciable organomegaly Ext: no gross muscle atrophy, muscle strength muscle strength 5 out of 5 in all 4 extremities, no contractures Neuro: CN II-XII grossly intact Psych: Alert, oriented, appropriate affect Assessment/Plan: Active: Hypotension Presyncope Dehydration Nausea and vomiting, persistent Leukocytosis ESRD on peritoneal dialysis -has not had any medications since morning. Restarted midodrine at 10 TID PRN -s/p 2 L of NS, continue 75 cc/hr -patient was supposed to see GI in a week for EGD, GI consulted -concern for infection as well. Blood cx pending, will attempt to get UA and UCx - nephrology consulted -PT/OT consulted Chronic: Atrial fibrillation Gout HLD Hx of TIA Patient agrees with outpatient palliative care. The patient is admitted with an anticipated less than 2 midnight stay as observation status for evaluation of Nausea and vomitting. Surrogate decision-maker: CODE STATUS:DNR/DNI DVT prophylaxis: eliquis Anticipated discharge date: pending clinical couse Anticipated discharge place: pending clinical course A total of 55 minutes was spent on the care of this complex patient more than 50% of the time was spent in counseling and care coordination. 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 History of Any Multi-Drug Resistant Organisms: None Reported Past Surgical History: Section, Hysterectomy, Joint Replacement, Orthopedic Surgery Additional Past Surgical History / Comment(s): 3 C-Sections, hysterectomy with vaginal repair, bilateral total knees, R shoulder acromioplasty, excision distal clavicle rotator cuff repair, bilateral cataract removal with lens implants, L breast bx-benign, varicose vein stripping bilaterally, peritoneal HD cath Past Anesthesia/Blood Transfusion Reactions: No Reported Reaction Past Psychological History: No Psychological Hx Reported Smoking Status: Never smoker Past Alcohol Use History: None Reported Past Drug Use History: None Reported - Past Family History Brother(s) Family Medical History: Renal Disease Father Family Medical History: Unable to Obtain Mother Family Medical History: Coronary Artery Disease (CAD), CVA/TIA Additional Family Medical History / Comment(s): Mother at 92 yrs of age. She had TIA's. Medications and Allergies Home Medications Medication Instructions Recorded Confirmed Type Omeprazole [PriLOSEC] 20 mg PO HS 05/11/14 07/20/23 History allopurinoL [Zyloprim] 100 mg PO BID 05/22/17 07/20/23 History Ferrous Sulfate [Iron (65 MG 325 mg PO DAILY 11/03/21 07/20/23 History Elemental)] Sodium Bicarbonate Tab 650 mg PO BID 11/03/21 07/20/23 History Cholecalciferol [Vitamin D3 (25 25 mcg PO DAILY 09/15/22 07/20/23 History Mcg = 1000 Iu)] Rosuvastatin [Crestor] 20 mg PO HS 09/15/22 07/20/23 History Cranberry 4200mg 2 tab PO DAILY 05/24/23 07/20/23 History Estrogens, Conjugated Cream 1 applicator VAGINAL MOWEFR 05/24/23 07/20/23 History [Premarin Vaginal Cream] Liqua Martha Protein 1 dose PO BID 05/24/23 07/20/23 History calcitrioL [Calcitriol] 0.25 mcg PO MO 05/24/23 07/20/23 History Aspirin 81 mg PO DAILY #60 tab 06/09/23 07/20/23 Rx Calcium Acetate [PhosLo] 667 mg PO BID-W/MEALS #60 tab 06/09/23 07/20/23 Rx Potassium Chloride ER [K-Dur 10] 10 meq PO DAILY 07/05/23 07/20/23 History Apixaban [Eliquis] 2.5 mg PO BID 90 Days #180 tab 07/08/23 07/20/23 Rx Prochlorperazine [Compazine] 10 mg PO Q6H PRN #40 tab 07/08/23 07/20/23 Rx Amiodarone [Cordarone] 200 mg PO BID 07/20/23 07/20/23 History Metoprolol Tartrate [Lopressor] 12.5 mg PO BID 07/20/23 07/20/23 History Midodrine [ProAmatine] 5 mg PO TID PRN 07/20/23 07/20/23 History Allergies Allergy/AdvReac Type Severity Reaction Status Date / Time losartan [Losartan] Allergy Unknown Verified 07/20/23 14:05 LUANA Inhibitors AdvReac Cough Verified 07/20/23 14:05 levofloxacin [From Levaquin] AdvReac Hallucinati Verified 07/20/23 14:05 ons Physical Exam Vitals: Vital Signs Temp Pulse Resp BP Pulse Ox 07/20/23 14:10 83/52 96 07/20/23 14:00 93 L 07/20/23 13:50 85/52 95 07/20/23 13:40 90/50 100 07/20/23 13:30 100 07/20/23 13:20 83/50 98 07/20/23 13:10 80/56 94 L 07/20/23 13:00 86/56 92 L 07/20/23 12:50 93 L 07/20/23 12:40 92 L 07/20/23 12:30 93 L 07/20/23 12:20 91 L 07/20/23 12:10 92 L 07/20/23 12:00 91 L 07/20/23 11:50 91 L 07/20/23 11:40 90 L 07/20/23 11:30 93 L 07/20/23 11:20 93 L 07/20/23 11:10 93 L 07/20/23 11:00 95 07/20/23 10:50 95 07/20/23 10:40 96 07/20/23 10:30 93 L 07/20/23 10:20 92 L 07/20/23 10:10 95 07/20/23 10:00 94 L 07/20/23 09:50 93 L 07/20/23 09:49 110/78 07/20/23 09:35 99.2 F 100 18 109/64 95 Intake and Output 07/20/23 07/20/23 07/20/23 06:59 14:59 22:59 Other: Weight 74.843 kg Results CBC & Chem 7: 07/20/23 10:07 07/20/23 10:07 Labs: Abnormal Lab Results - Last 24 Hours (Table) 07/20/23 07/20/23 Range/Units 10:07 10:07 WBC 19.0 H (3.8-10.6) k/uL RDW 16.3 H (11.5-15.5) % Neutrophils # 17.6 H (1.3-7.7) k/uL Lymphocytes # 0.6 L (1.0-4.8) k/uL Sodium 133 L (137-145) mmol/L Chloride 95 L (98-107) mmol/L BUN 35 H (7-17) mg/dL Creatinine 7.40 H* (0.52-1.04) mg/dL Total Protein 6.1 L (6.3-8.2) g/dL Albumin 2.9 L (3.5-5.0) g/dL
--- NOTE | 2023-07-20 15:51 | P.PN ---
Progress Note - Text Progress Note Date: 07/20/23 Advanced Care Planning: Diagnoses: ESRD on peritoneal dialysis Discussion: Person(s) present and participating in discussion: Patient, , son Summary: Due to her ESRD, patient is more prone to being hospitalized due to frequent medical comorbidities. Patient would like to see palliative care outpatient. Agrees with DNR/DNI. A total of 20 minutes of face to face time was spent discussing advanced care planning.
[2023-07-20] MEDS: MIDODRINE 5 MG TAB PO PRN (16:39)
[2023-07-20] MEDS: SODIUM CHLORIDE 0.9% 1,000 ML IV SCH (16:47)
[2023-07-20] MEDS: CALCIUM ACETATE 667 MG TAB PO SCH (19:11)
[2023-07-20] MEDS: DIALYSIS (PERIT 1.5%) 2,000 ML 30 G/2,000 ML BAG INTRAPERIT SCH (20:28)
[2023-07-20] MEDS: AMIODARONE 200 MG TAB PO SCH (20:41)
[2023-07-20] MEDS: ATORVASTATIN 40 MG TAB PO SCH (20:41)
[2023-07-20] MEDS: APIXABAN 2.5 MG TABLET PO SCH (20:41)
[2023-07-20] MEDS: SODIUM BICARBONATE TAB 650 MG TAB PO SCH (20:42)
[2023-07-20] MEDS: METOPROLOL TARTRATE 12.5 MG TAB PO SCH (20:42)
[2023-07-20] MEDS: allopurinoL 100 MG TAB PO SCH (20:42)
[2023-07-20 22:10] LABS: Appearance,Urine Turbid (Clear); Bacteria,Urine Few /hpf; Bilirubin,Urine Negative (Negative); Blood,Urine Small (Negative); Color,Urine Light Yellow; Glucose,Urine (UA) Negative (Negative); Ketones,Urine Negative (Negative); Leukocyte Esterase,Urine Large (Negative); Nitrite,Urine Negative (Negative); PH, Urine 7.5 (5.0-8.0); Protein,Urine 2+ (Negative); RBC,Urine 12 /hpf (0-5); Specific Gravity,Urine 1.018 (1.001-1.035); Squamous Epithelial Cell,Urine 12 /hpf (0-4); Urobilinogen,Urine <2.0 mg/dL (<2.0); WBC,Urine >182 /hpf (0-5)
[2023-07-21] MEDS: DIALYSIS (PERIT 1.5%) 2,000 ML 30 G/2,000 ML BAG INTRAPERIT SCH ×5 (00:04→23:56)
[2023-07-21] MEDS: SODIUM CHLORIDE 0.9% 1,000 ML IV SCH ×2 (02:13→05:51)
[2023-07-21] MEDS ORDERED: VANCOMYCIN IV PER PHARMACY 1 EACH MISC MISCELLANE PRN ×2 (04:13→13:21)
--- NOTE | 2023-07-21 04:14 | P.PN ---
Progress Note - Text Progress Note Date: 07/21/23 Notified that the patient's UA resulted positive with urine culture pending. Patient's prior urinary cultures grew enterococcus faecium with multidrug resistance. Start patient on vancomycin at this time. Await cultures.
[2023-07-21] MEDS ORDERED: VANCOMYCIN 1,250 MG in SODIUM CHLORIDE 0.9% 250 ML IVPB ONE (06:00)
[2023-07-21] MEDS: APIXABAN 2.5 MG TABLET PO SCH (08:18)
[2023-07-21] MEDS: PANTOPRAZOLE 40 MG/10 ML VIAL IV SCH (08:32)
[2023-07-21] MEDS: ASPIRIN 81 MG PO SCH (08:32)
[2023-07-21] MEDS: SODIUM BICARBONATE TAB 650 MG TAB PO SCH ×2 (08:32→21:13)
[2023-07-21] MEDS: CHOLECALCIFEROL 25 MCG (1000 IU) TABLET PO SCH (08:33)
[2023-07-21] MEDS: CALCIUM ACETATE 667 MG TAB PO SCH ×2 (08:33→18:24)
[2023-07-21] MEDS: allopurinoL 100 MG TAB PO SCH ×2 (08:33→21:13)
[2023-07-21] MEDS: AMIODARONE 200 MG TAB PO SCH ×2 (08:33→21:13)
[2023-07-21] MEDS: METOPROLOL TARTRATE 12.5 MG TAB PO SCH ×2 (08:33→21:13)
[2023-07-21] MEDS: FERROUS SULFATE 325 MG TAB PO SCH (08:33)
[2023-07-21 08:36] LABS: Basophils # (A) 0.04 X 10*3/uL (0.00-0.10); Basophils % (A) 0.3 %; Eosinophils # (A) 0.15 X 10*3/uL (0.04-0.35); HCT 27.9 % (37.2-46.3); HGB 8.9 g/dL (12.0-15.0); Lymphocytes # (A) 1.97 X 10*3/uL (0.90-5.00); Lymphocytes % (A) 12.9 %; MCH 28.6 pg (27.0-32.0); MCHC 31.9 g/dL (32.0-37.0); MCV 89.7 FL (80.0-97.0); Mean Platelet Volume 10.6 FL (9.5-12.2); Monocytes % (A) 9.8 %; NRBC Per 100 WBC 0 X 10*3/uL (0.00-0.01); Neutrophils # (A) 11.54 X 10*3/uL (1.80-7.70); Neutrophils % (A) 75.5 %; Platelet Count 232 X 10*3/uL (140-440); RBC 3.11 X 10*6/uL (4.10-5.20); WBC 15.28 X 10*3/uL (4.50-10.00)
[2023-07-21 08:37] LABS: ALT 21 U/L (8-44); AST 30 U/L (13-35); Albumin 2.3 g/dL (3.8-4.9); Albumin/Globulin Ratio 1.15 Ratio (1.60-3.17); Alkaline Phosphatase 77 U/L (41-126); BUN/Creat Ratio 4.49 Ratio (12.00-20.00); Blood Urea Nitrogen 30.5 mg/dL (9.0-27.0); Calcium 8.6 mg/dL (8.7-10.3); Carbon Dioxide 24.1 mmol/L (21.6-31.8); Chloride 101 mmol/L (96-109); Glucose 72 mg/dL (70-110); Potassium 3.5 mmol/L (3.5-5.5); Sodium 137 mmol/L (135-145); Total Bilirubin 0.5 mg/dL (0.3-1.2); Total Protein 4.3 g/dL (6.2-8.2)
--- NOTE | 2023-07-21 14:28 | P.NPCON ---
History of Present Illness - Reason for Consult end stage renal disease - History of Present Illness Patient is an 82-year-old female with end-stage renal disease maintained on peritoneal dialysis. Patient is admitted to the hospital with complaints of nausea and vomiting and increased weakness. She was noted to be hypotensive and is status post IV fluids. UA shows significant pyuria. Patient was recently treated for left renal abscess with IV antibiotics and had CT drainage of small amount of pus. This was during her hospitalization on 05/20/2023. Patient has been admitted a couple of times after that for persistent nausea and vomiting . Patient has had poor oral intake. CT of the abdomen with IV contrast has been ordered and there is consideration for possible left nephrectomy. PD fluid has been clear with no complaints of abdominal pain. 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 History of Any Multi-Drug Resistant Organisms: None Reported Past Surgical History: Section, Hysterectomy, Joint Replacement, Orthopedic Surgery Additional Past Surgical History / Comment(s): 3 C-Sections, hysterectomy with vaginal repair, bilateral total knees, R shoulder acromioplasty, excision distal clavicle rotator cuff repair, bilateral cataract removal with lens implants, L breast bx-benign, varicose vein stripping bilaterally, peritoneal HD cath Past Anesthesia/Blood Transfusion Reactions: No Reported Reaction Past Psychological History: No Psychological Hx Reported Additional Psychological History / Comment(s): Pt resides with her spouse. She is independent. She uses no assistive devices. She drives. Smoking Status: Never smoker Past Alcohol Use History: None Reported Past Drug Use History: None Reported - Past Family History Brother(s) Family Medical History: Renal Disease Father Family Medical History: Unable to Obtain Mother Family Medical History: Coronary Artery Disease (CAD), CVA/TIA Additional Family Medical History / Comment(s): Mother at 92 yrs of age. She had TIA's. Medications and Allergies Home Medications Medication Instructions Recorded Confirmed Type Omeprazole [PriLOSEC] 20 mg PO HS 05/11/14 07/20/23 History allopurinoL [Zyloprim] 100 mg PO BID 05/22/17 07/20/23 History Ferrous Sulfate [Iron (65 MG 325 mg PO DAILY 11/03/21 07/20/23 History Elemental)] Sodium Bicarbonate Tab 650 mg PO BID 11/03/21 07/20/23 History Cholecalciferol [Vitamin D3 (25 25 mcg PO DAILY 09/15/22 07/20/23 History Mcg = 1000 Iu)] Rosuvastatin [Crestor] 20 mg PO HS 09/15/22 07/20/23 History Cranberry 4200mg 2 tab PO DAILY 05/24/23 07/20/23 History Estrogens, Conjugated Cream 1 applicator VAGINAL MOWEFR 05/24/23 07/20/23 History [Premarin Vaginal Cream] Liqua Martha Protein 1 dose PO BID 05/24/23 07/20/23 History calcitrioL [Calcitriol] 0.25 mcg PO MO 05/24/23 07/20/23 History Aspirin 81 mg PO DAILY #60 tab 06/09/23 07/20/23 Rx Calcium Acetate [PhosLo] 667 mg PO BID-W/MEALS #60 tab 06/09/23 07/20/23 Rx Potassium Chloride ER [K-Dur 10] 10 meq PO DAILY 07/05/23 07/20/23 History Apixaban [Eliquis] 2.5 mg PO BID 90 Days #180 tab 07/08/23 07/20/23 Rx Prochlorperazine [Compazine] 10 mg PO Q6H PRN #40 tab 07/08/23 07/20/23 Rx Amiodarone [Cordarone] 200 mg PO BID 07/20/23 07/20/23 History Metoprolol Tartrate [Lopressor] 12.5 mg PO BID 07/20/23 07/20/23 History Midodrine [ProAmatine] 5 mg PO TID PRN 07/20/23 07/20/23 History Allergies Allergy/AdvReac Type Severity Reaction Status Date / Time losartan [Losartan] Allergy Unknown Verified 07/20/23 14:05 LUANA Inhibitors AdvReac Cough Verified 07/20/23 14:05 levofloxacin [From Levaquin] AdvReac Hallucinati Verified 07/20/23 14:05 ons Physical Exam Vitals: Vital Signs Temp Pulse Pulse Resp BP BP Pulse Ox 07/21/23 12:33 98.4 F 75 14 119/80 96 07/21/23 11:57 98.3 F 59 L 16 108/71 93 L 12/21/23 07:18 97.8 F 67 18 119/71 93 L 07/21/23 06:29 97.6 F 71 16 112/67 96 07/21/23 02:00 98.2 F 68 16 118/70 95 07/21/23 00:12 97.3 F L 69 16 115/75 95 07/20/23 21:02 98.1 F 65 17 119/75 96 07/20/23 19:50 65 17 07/20/23 19:45 98.1 F 65 16 119/75 96 07/20/23 19:00 98.3 F 67 16 104/71 95 07/20/23 18:30 107/75 07/20/23 18:20 107/75 07/20/23 18:10 115/78 07/20/23 18:00 94 L 07/20/23 17:50 101/69 94 L 07/20/23 17:40 101/66 92 L 07/20/23 17:30 93 L 07/20/23 17:20 97/64 93 L 07/20/23 17:10 96/66 94 L 07/20/23 17:00 91 L 07/20/23 16:50 95/65 92 L 07/20/23 16:40 94/61 92 L 07/20/23 16:30 93 L 07/20/23 16:20 87/56 92 L 07/20/23 16:10 89/59 93 L 07/20/23 16:00 93 L 07/20/23 15:50 96/52 90 L 07/20/23 15:40 94/53 92 L 07/20/23 15:30 92 L 07/20/23 15:20 89/55 93 L 07/20/23 15:10 104/65 93 L 07/20/23 15:00 93 L 07/20/23 14:50 84/55 93 L 07/20/23 14:40 89/52 93 L 07/20/23 14:30 94 L Intake and Output 07/20/23 07/21/23 07/21/23 22:59 06:59 14:59 Intake Total 1415 Balance 1415 Intake: Intake, IV Titration 825 Amount Sodium Chloride 0.9% 1, 825 000 ml @ 75 mls/hr IV . [id number] Rx#:[id number] Oral 590 Other: Voiding Method Toilet Bedside Commode # Voids 2 Weight 74.843 kg Patient is awake, comfortable, alert oriented 3. No acute distress. Examination of the heart S1 and S2 Examination of the lungs bilateral breath sounds are heard Abdomen is soft nontender Examination of lower extremities shows no evidence of edema [employer]WE[employer]END[employer] exam grossly intact Results - Lab Results Most recent lab results Calcium 8.6 mg/dL (8.7-10.3) L 07/21/23 04:44 07/21/23 04:50 07/21/23 04:44 Assessment and Plan Assessment: 1. End-stage renal disease maintained on peritoneal dialysis. 2. Persistent nausea and vomiting 3. Left renal abscess status post CT drainage in May 2023 and status post IV antibiotics as outpatient. There is consideration for possible need for left nephrectomy. 4. Hypotension secondary to underlying sepsis 5. CK D mineral bone disorder Plan: Continue antibiotics Okay to proceed with computed tomography scan with IV contrast Consult urology.
--- NOTE | 2023-07-21 15:17 | P.PN ---
Subjective Progress Note Date: 07/21/23 Hospital Course: 82-year-old female with history of end-stage renal disease on peritoneal dialysis, atrial fibrillation, presenting with nausea and vomiting and lightheadedness. In the ED, temperature was 99.2, pulse 100, respiratory rate 18, blood pressure down to 83/52, saturating well on room air. White count 19, neutrophilic predominant, sodium 133, potassium 4.2, creatinine 7.4. She was given 2 L of normal saline in the ER. She is admitted for dehydration, nausea, vomiting. Nephrology was consulted. Urinalysis positive for multidrug resistant drip, patient started on vancomycin. Also on peritoneal dialysis. ID consulted. CT abdomen and pelvis pending. GI also following. Surgery EGD likely tomorrow. Subjective: Seen and examined at bedside. No acute events overnight. Feeling a lot better today. Last week compared to yesterday. Pertinent positives and negatives as discussed above, a complete review of systems was performed and all other systems are negative. Vitals Signs Reviewed. General: nontoxic, no distress, appears at stated age Derm: warm, dry, PD catheter clean, no erythema noted Head: atraumatic, normocephalic, symmetric Eyes: EOMI, no lid lag, anicteric sclera, pupils equal round reactive to light ENT: Nose and ears atraumatic Neck: No thyromegaly, supple Mouth: no lip lesion, mucus membranes moist Cardiovascular: S1S2 reg, no murmur, no edema Lungs: clear to auscultation bilateral, no rhonchi, no rales, no wheeze, no accessory muscle use Abdominal: soft, nontender to palpation, no guarding, no appreciable organomegaly Ext: no gross muscle atrophy, muscle strength muscle strength 5 out of 5 in all 4 extremities, no contractures Neuro: CN II-XII grossly intact Psych: Alert, oriented, appropriate affect Data Reviewed Today: Pertinent Labs: WBC 15.28, hemoglobin 8.9, creatinine 6.8, potassium 3.5, urinalysis positive for enterococcus Imaging: No new imaging Assessment and Plan: Sepsis likely secondary to urinary tract infection Leukocytosis Presyncope Dehydration Nausea and vomiting, persistent ESRD on peritoneal dialysis -Urine cultures positive for multidrug resistant enterococcus, patient started on IV vancomycin -Patient does have a history of left perinephric abscess requiring drainage, CT abdomen and pelvis with contrast pending, ID was also consulted. -Blood cultures pending -Continue midodrine at 10 TID PRN -Continue normal saline at 50 mL an hour -Nephrology note reviewed, agree with IV antibiotics and CT -Case discussed with GI, possible EGD tomorrow, if not possible, will consider next week, outpatient -Eliquis being held -PT/OT consulted Chronic: Atrial fibrillation Gout HLD Hx of TIA DVT ppx: SCDs Code status: Full code, likely just for procedure, otherwise patient wants to be DNR/DNI Anticipated discharge place: Pending clinical course Anticipated discharge time: Pending clinical course Objective - Vital Signs Vital signs: Vital Signs Temp 98.4 F 07/21/23 12:33 Pulse 75 07/21/23 12:33 Resp 14 07/21/23 12:33 BP 119/80 07/21/23 12:33 Pulse Ox 96 07/21/23 12:33 FiO2 Intake & Output 07/20/23 07/21/23 07/21/23 18:59 06:59 18:59 Intake Total 1415 Balance 1415 Weight 74.843 kg 74.843 kg Intake: Intake, IV Titration 825 Amount Sodium Chloride 0.9% 1, 825 000 ml @ 75 mls/hr IV . [id number] ON LICENSE OF [facility] Rx#:[id number] Oral 590 Other: Voiding Method Toilet Toilet Bedside Commode Bedside Commode # Voids 2 - Labs CBC & Chem 7: 07/21/23 04:50 07/21/23 04:44 Labs: Abnormal Lab Results - Last 24 Hours (Table) 07/20/23 07/21/23 07/21/23 Range/Units 20:55 04:44 04:50 WBC 15.28 H (4.50-10.00) X 10*3/uL RBC 3.11 L (4.10-5.20) X 10*6/uL Hgb 8.9 L (12.0-15.0) g/dL Hct 27.9 L (37.2-46.3) % MCHC 31.9 L (32.0-37.0) g/dL RDW 16.0 H (11.5-14.5) % Immature Gran # 0.08 H (0.00-0.04) X 10*3/uL Neutrophils # 11.54 H (1.80-7.70) X 10*3/uL Monocytes # 1.50 H (0.20-1.00) X 10*3/uL BUN 30.5 H (9.0-27.0) mg/dL Creatinine 6.8 H (0.6-1.5) mg/dL Est GFR (CKD-EPI) 6 L (>=60) BUN/Creatinine Ratio 4.49 L (12.00-20.00) Ratio Calcium 8.6 L (8.7-10.3) mg/dL Total Protein 4.3 L (6.2-8.2) g/dL Albumin 2.3 L (3.8-4.9) g/dL Albumin/Globulin Ratio 1.15 L (1.60-3.17) Ratio Urine Appearance Turbid H (Clear) Urine Protein 2+ H (Negative) Urine Blood Small H (Negative) Ur Leukocyte Esterase Large H (Negative) Urine RBC 12 H (0-5) /hpf Urine WBC >182 H (0-5) /hpf Urine WBC Clumps Many H (None) /hpf Ur Squamous Epith Cells 12 H (0-4) /hpf Urine Bacteria Few H (None) /hpf
--- NOTE | 2023-07-21 16:28 | P.CONS ---
History of Present Illness - Reason for Consult Consult date: 07/21/23 Nausea and vomiting Requesting physician: Blu Adrian - Chief Complaint Nausea and vomiting - History of Present Illness This pleasant 82-year-old white female who presented to the emergency department with complaints of nausea and vomiting. She has a history of end-stage renal disease on peritoneal dialysis, CVA/TIA, hyperlipidemia, hypertension, frequent urinary tract infections and chronic nausea and vomiting. Patient has actually been seen in gastroenterology office as an outpatient was scheduled for outpatient EGD next week Tuesday on 07/26/2023. However patient states she's had nausea and vomiting over the last 2-3 days duration and came to the emerge ncy department. She states that this is the fourth time she's been admitted for similar episodes. She denies any sick contacts no diarrhea. Denies any hematemesis. She eats something it tends to come up. She denies any feeling of it getting stuck. She states that she's lost about 25 pounds over the last 4-5 months duration. Patient was noted to have leukocytosis on admission with a WBC of 19 hemoglobin 11.6 platelet count 236,000 sodium 133 potassium 4.2 BUN 35 creatinine 7.4 total bilirubin 1.1 AST 32 ALT 23 alkaline phosphatase 97. Patient also positive for urinary tract infection. Review of Systems REVIEW OF SYSTEMS: CARDIOPULMONARY: No chest pain, shortness of breath. Gastrointestinal: No abdominal pain. Positive nausea and vomiting for last 4-5 months duration. Mild bursal the last 2-3 days. Associated with 25 pound weight loss. No hematemesis, coffee-ground emesis. No rectal bleeding, or melena. GENITOURINARY: No dysuria or hematuria. MUSCULOSKELETAL: Reports normal range of motion. SKIN: No rashes. No jaundice. ENDOCRINE: No chills, fevers. No polydipsia or polyuria. PSYCHIATRIC: Unremarkable. NEUROLOGY: No change in mental status. Denies dizziness, headache. ENT: Vision unremarkable. CONSTITUTIONAL: No recent weight loss. No fever, chills, night sweats. 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 History of Any Multi-Drug Resistant Organisms: None Reported Past Surgical History: Section, Hysterectomy, Joint Replacement, Orthopedic Surgery Additional Past Surgical History / Comment(s): 3 C-Sections, hysterectomy with vaginal repair, bilateral total knees, R shoulder acromioplasty, excision distal clavicle rotator cuff repair, bilateral cataract removal with lens implants, L breast bx-benign, varicose vein stripping bilaterally, peritoneal HD cath Past Anesthesia/Blood Transfusion Reactions: No Reported Reaction Past Psychological History: No Psychological Hx Reported Additional Psychological History / Comment(s): Pt resides with her spouse. She is independent. She uses no assistive devices. She drives. Smoking Status: Never smoker Past Alcohol Use History: None Reported Past Drug Use History: None Reported - Past Family History Brother(s) Family Medical History: Renal Disease Father Family Medical History: Unable to Obtain Mother Family Medical History: Coronary Artery Disease (CAD), CVA/TIA Additional Family Medical History / Comment(s): Mother at 92 yrs of age. She had TIA's. Medications and Allergies Home Medications Medication Instructions Recorded Confirmed Type Omeprazole [PriLOSEC] 20 mg PO HS 05/11/14 07/20/23 History allopurinoL [Zyloprim] 100 mg PO BID 05/22/17 07/20/23 History Ferrous Sulfate [Iron (65 MG 325 mg PO DAILY 11/03/21 07/20/23 History Elemental)] Sodium Bicarbonate Tab 650 mg PO BID 11/03/21 07/20/23 History Cholecalciferol [Vitamin D3 (25 25 mcg PO DAILY 09/15/22 07/20/23 History Mcg = 1000 Iu)] Rosuvastatin [Crestor] 20 mg PO HS 09/15/22 07/20/23 History Cranberry 4200mg 2 tab PO DAILY 05/24/23 07/20/23 History Estrogens, Conjugated Cream 1 applicator VAGINAL MOWEFR 05/24/23 07/20/23 History [Premarin Vaginal Cream] Liqua Martha Protein 1 dose PO BID 05/24/23 07/20/23 History calcitrioL [Calcitriol] 0.25 mcg PO MO 05/24/23 07/20/23 History Aspirin 81 mg PO DAILY #60 tab 06/09/23 07/20/23 Rx Calcium Acetate [PhosLo] 667 mg PO BID-W/MEALS #60 tab 06/09/23 07/20/23 Rx Potassium Chloride ER [K-Dur 10] 10 meq PO DAILY 07/05/23 07/20/23 History Apixaban [Eliquis] 2.5 mg PO BID 90 Days #180 tab 07/08/23 07/20/23 Rx Prochlorperazine [Compazine] 10 mg PO Q6H PRN #40 tab 07/08/23 07/20/23 Rx Amiodarone [Cordarone] 200 mg PO BID 07/20/23 07/20/23 History Metoprolol Tartrate [Lopressor] 12.5 mg PO BID 07/20/23 07/20/23 History Midodrine [ProAmatine] 5 mg PO TID PRN 07/20/23 07/20/23 History Allergies Allergy/AdvReac Type Severity Reaction Status Date / Time losartan [Losartan] Allergy Unknown Verified 07/20/23 14:05 LUANA Inhibitors AdvReac Cough Verified 07/20/23 14:05 levofloxacin [From Levaquin] AdvReac Hallucinati Verified 07/20/23 14:05 ons Physical Exam Vitals: Vital Signs Temp Pulse Pulse Resp BP BP Pulse Ox 07/21/23 07:18 97.8 F 67 18 119/71 93 L 07/21/23 06:29 97.6 F 71 16 112/67 96 07/21/23 02:00 98.2 F 68 16 118/70 95 07/21/23 00:12 97.3 F L 69 16 115/75 95 07/20/23 21:02 98.1 F 65 17 119/75 96 07/20/23 19:50 65 17 07/20/23 19:45 98.1 F 65 16 119/75 96 07/20/23 19:00 98.3 F 67 16 104/71 95 07/20/23 18:30 107/75 07/20/23 18:20 107/75 07/20/23 18:10 115/78 07/20/23 18:00 94 L 07/20/23 17:50 101/69 94 L 07/20/23 17:40 101/66 92 L 07/20/23 17:30 93 L 07/20/23 17:20 97/64 93 L 07/20/23 17:10 96/66 94 L 07/20/23 17:00 91 L 07/20/23 16:50 95/65 92 L 07/20/23 16:40 94/61 92 L 07/20/23 16:30 93 L 07/20/23 16:20 87/56 92 L 07/20/23 16:10 89/59 93 L 07/20/23 16:00 93 L 07/20/23 15:50 96/52 90 L 07/20/23 15:40 94/53 92 L 07/20/23 15:30 92 L 07/20/23 15:20 89/55 93 L 07/20/23 15:10 104/65 93 L 07/20/23 15:00 93 L 07/20/23 14:50 84/55 93 L 07/20/23 14:40 89/52 93 L 07/20/23 14:30 94 L 07/20/23 14:20 86/54 94 L 07/20/23 14:10 83/52 96 07/20/23 14:00 93 L 07/20/23 13:50 85/52 95 07/20/23 13:40 90/50 100 07/20/23 13:30 100 07/20/23 13:20 83/50 98 07/20/23 13:10 80/56 94 L 07/20/23 13:00 86/56 92 L 07/20/23 12:50 93 L 07/20/23 12:40 92 L 07/20/23 12:30 93 L 07/20/23 12:20 91 L 07/20/23 12:10 92 L 07/20/23 12:00 91 L 07/20/23 11:50 91 L 07/20/23 11:40 90 L 07/20/23 11:30 93 L 07/20/23 11:20 93 L 07/20/23 11:10 93 L 07/20/23 11:00 95 Intake and Output 07/20/23 07/21/23 07/21/23 22:59 06:59 14:59 Intake Total 1415 Balance 1415 Intake: Intake, IV Titration 825 Amount Sodium Chloride 0.9% 1, 825 000 ml @ 75 mls/hr IV . [id number] [facility] Rx#:[id number] Oral 590 Other: Voiding Method Toilet Bedside Commode # Voids 2 Weight 74.843 kg General appearance: The patient is alert, oriented, appears in no acute distress. HET: Head is normocephalic and atraumatic. Conjunctiva pink. Sclera anicteric. Neck: Supple without lymphadenopathy. Abdomen: Soft, nontender, nondistended with bowel sounds. No guarding or rigidity. Extremities: Normal skin color and turgor. No pedal edema Skin: No rashes, no jaundice Neurological: No focal deficits. Alert and oriented. Results CBC & Chem 7: 07/21/23 04:50 07/21/23 04:44 Labs: Abnormal Lab Results - Last 24 Hours (Table) 07/20/23 07/20/23 07/21/23 Range/Units 10:07 20:55 04:44 WBC (4.50-10.00) X 10*3/uL RBC (4.10-5.20) X 10*6/uL Hgb (12.0-15.0) g/dL Hct (37.2-46.3) % MCHC (32.0-37.0) g/dL RDW (11.5-14.5) % Immature Gran # (0.00-0.04) X 10*3/uL Neutrophils # (1.80-7.70) X 10*3/uL Monocytes # (0.20-1.00) X 10*3/uL Sodium 133 L (137-145) mmol/L Chloride 95 L (98-107) mmol/L BUN 35 H 30.5 H (7-17) mg/dL Creatinine 7.40 H* 6.8 H (0.52-1.04) mg/dL Est GFR (CKD-EPI) 6 L (>=60) BUN/Creatinine Ratio 4.49 L (12.00-20.00) Ratio Calcium 8.6 L (8.7-10.3) mg/dL Total Protein 6.1 L 4.3 L (6.3-8.2) g/dL Albumin 2.9 L 2.3 L (3.5-5.0) g/dL Albumin/Globulin Ratio 1.15 L (1.60-3.17) Ratio Urine Appearance Turbid H (Clear) Urine Protein 2+ H (Negative) Urine Blood Small H (Negative) Ur Leukocyte Esterase Large H (Negative) Urine RBC 12 H (0-5) /hpf Urine WBC >182 H (0-5) /hpf Urine WBC Clumps Many H (None) /hpf Ur Squamous Epith Cells 12 H (0-4) /hpf Urine Bacteria Few H (None) /hpf 07/21/23 Range/Units 04:50 WBC 15.28 H (4.50-10.00) X 10*3/uL RBC 3.11 L (4.10-5.20) X 10*6/uL Hgb 8.9 L (12.0-15.0) g/dL Hct 27.9 L (37.2-46.3) % MCHC 31.9 L (32.0-37.0) g/dL RDW 16.0 H (11.5-14.5) % Immature Gran # 0.08 H (0.00-0.04) X 10*3/uL Neutrophils # 11.54 H (1.80-7.70) X 10*3/uL Monocytes # 1.50 H (0.20-1.00) X 10*3/uL Sodium (137-145) mmol/L Chloride (98-107) mmol/L BUN (7-17) mg/dL Creatinine (0.52-1.04) mg/dL Est GFR (CKD-EPI) (>=60) BUN/Creatinine Ratio (12.00-20.00) Ratio Calcium (8.7-10.3) mg/dL Total Protein (6.3-8.2) g/dL Albumin (3.5-5.0) g/dL Albumin/Globulin Ratio (1.60-3.17) Ratio Urine Appearance (Clear) Urine Protein (Negative) Urine Blood (Negative) Ur Leukocyte Esterase (Negative) Urine RBC (0-5) /hpf Urine WBC (0-5) /hpf Urine WBC Clumps (None) /hpf Ur Squamous Epith Cells (0-4) /hpf Urine Bacteria (None) /hpf Assessment and Plan (1) Nausea & vomiting Narrative/Plan: 82-year-old female with ongoing chronic nausea and vomiting for last 4-5 months duration with a 25 pound weight loss unclear etiology. Patient does state that she has started new medications in the last few months however she is unsure of which ones they are. Denies any dysphagia. Unclear etiology of nausea and vomi ting. Patient was 31 scheduled for outpatient upper endoscopy so we'll plan to continue to hold Eliquis and proceed with EGD. Current Visit: No Status: Acute Code(s): R11.2 - NAUSEA WITH VOMITING, UNSPECIFIED SNOMED Code(s): 93994860 (2) Atrial fibrillation with rapid ventricular response Current Visit: No Status: Acute Code(s): I48.91 - UNSPECIFIED ATRIAL FIBRILLATION SNOMED Code(s): 694681523894551 (3) End-stage renal disease on peritoneal dialysis Current Visit: No Status: Acute Code(s): N18.6 - END STAGE RENAL DISEASE; Z99.2 - DEPENDENCE ON RENAL DIALYSIS SNOMED Code(s): 349928162 (4) Leukocytosis Current Visit: No Status: Acute Code(s): D72.829 - ELEVATED WHITE BLOOD CELL COUNT, UNSPECIFIED SNOMED Code(s): 292864867 (5) Urinary tract infection Current Visit: No Status: Acute Code(s): N39.0 - URINARY TRACT INFECTION, SITE NOT SPECIFIED SNOMED Code(s): 68067304 Plan: 1. Continue symptomatic and supportive care 2. Patient may have regular diet and nothing by mouth after midnight 3. Protonix 40 mg daily 4. Antiemetics as needed 5. Hold Eliquis 6. Plan for EGD tomorrow Thank you for this consultation. Further recommendations forthcoming following upper endoscopy. Dr. Yuki Christopher I agree with the dictator's note, documented as a scribe by Jes Walker.
[2023-07-21] MEDS: ATORVASTATIN 40 MG TAB PO SCH (21:13)
[2023-07-22] MEDS: SODIUM CHLORIDE 0.9% 1,000 ML IV SCH ×3 (05:21→17:43)
[2023-07-22] MEDS: DIALYSIS (PERIT 1.5%) 2,000 ML 30 G/2,000 ML BAG INTRAPERIT SCH ×4 (05:48→23:50)
[2023-07-22] MEDS ORDERED: VANCOMYCIN 1,250 MG in SODIUM CHLORIDE 0.9% 250 ML IVPB ONE ×4 (07:00)
--- NOTE | 2023-07-22 08:03 | P.CONS ---
History of Present Illness - Reason for Consult Consult date: 07/21/23 - History of Present Illness Patient is a 82-year-old female with a past medical history significant for end-stage renal disease on peritoneal dialysis patient recently has been treated for left renal abscess for the patient has completed an extensive IV followed by oral antibiotic therapy patient was seen in the office on Tuesday and the patient was off antibiotic for 4 more than a week and she was doing well subsequently patient started having nausea and vomiting unable to keep anything down patient denies any abdominal pain patient denies having any high-grade fever did have some chills patient mention hardly makes any urine however the patient was catheterized in the ER and get a urine sample that was significantly positive patient on presentation to the hospital did have a low- grade fever of 99.2 degrees for night patient was started on vancomycin as the patient recently urine culture positive for vancomycin sensitive Enterococcus infectious disease was consulted for further management of antibiotic therapy Past Medical History Past Medical History: CVA/TIA, Hyperlipidemia, Hypertension, Renal Disease Additional Past Medical History / Comment(s): TIA, ESRD on periotneal dialysis, UTIs, dizziness, gout, arthiritis, back pain with UTIs. History of Any Multi-Drug Resistant Organisms: None Reported Past Surgical History: Section, Hysterectomy, Joint Replacement, Ort hopedic Surgery Additional Past Surgical History / Comment(s): 3 C-Sections, hysterectomy with vaginal repair, bilateral total knees, R shoulder acromioplasty, excision distal clavicle rotator cuff repair, bilateral cataract removal with lens implants, L breast bx-benign, varicose vein stripping bilaterally, peritoneal HD cath Past Anesthesia/Blood Transfusion Reactions: No Reported Reaction Past Psychological History: No Psychological Hx Reported Additional Psychological History / Comment(s): Pt resides with her spouse. She is independent. She uses no assistive devices. She drives. Smoking Status: Never smoker Past Alcohol Use History: None Reported Past Drug Use History: None Reported - Past Family History Brother(s) Family Medical History: Renal Disease Father Family Medical History: Unable to Obtain Mother Family Medical History: Coronary Artery Disease (CAD), CVA/TIA Additional Family Medical History / Comment(s): Mother at 92 yrs of age. She had TIA's. Medications and Allergies Home Medications Medication Instructions Recorded Confirmed Type Omeprazole [PriLOSEC] 20 mg PO HS 05/11/14 07/20/23 History allopurinoL [Zyloprim] 100 mg PO BID 05/22/17 07/20/23 History Ferrous Sulfate [Iron (65 MG 325 mg PO DAILY 11/03/21 07/20/23 History Elemental)] Sodium Bicarbonate Tab 650 mg PO BID 11/03/21 07/20/23 History Cholecalciferol [Vitamin D3 (25 25 mcg PO DAILY 09/15/22 07/20/23 History Mcg = 1000 Iu)] Rosuvastatin [Crestor] 20 mg PO HS 09/15/22 07/20/23 History Cranberry 4200mg 2 tab PO DAILY 05/24/23 07/20/23 History Estrogens, Conjugated Cream 1 applicator VAGINAL MOWEFR 05/24/23 07/20/23 History [Premarin Vaginal Cream] Liqua Martha Protein 1 dose PO BID 05/24/23 07/20/23 History calcitrioL [Calcitriol] 0.25 mcg PO MO 05/24/23 07/20/23 History Aspirin 81 mg PO DAILY #60 tab 06/09/23 07/20/23 Rx Calcium Acetate [PhosLo] 667 mg PO BID-W/MEALS #60 tab 06/09/23 07/20/23 Rx Potassium Chloride ER [K-Dur 10] 10 meq PO DAILY 07/05/23 07/20/23 History Apixaban [Eliquis] 2.5 mg PO BID 90 Days #180 tab 07/08/23 07/20/23 Rx Prochlorperazine [Compazine] 10 mg PO Q6H PRN #40 tab 07/08/23 07/20/23 Rx Amiodarone [Cordarone] 200 mg PO BID 07/20/23 07/20/23 History Metoprolol Tartrate [Lopressor] 12.5 mg PO BID 07/20/23 07/20/23 History Midodrine [ProAmatine] 5 mg PO TID PRN 07/20/23 07/20/23 History Allergies Allergy/AdvReac Type Severity Reaction Status Date / Time losartan [Losartan] Allergy Unknown Verified 07/20/23 14:05 LUANA Inhibitors AdvReac Cough Verified 07/20/23 14:05 levofloxacin [From Levaquin] AdvReac Hallucinati Verified 07/20/23 14:05 ons Physical Exam Vitals: Vital Signs Temp Pulse Pulse Resp BP BP Pulse Ox 07/21/23 12:33 98.4 F 75 14 119/80 96 07/21/23 11:57 98.3 F 59 L 16 108/71 93 L 07/21/23 07:18 97.8 F 67 18 119/71 93 L 07/21/23 06:29 97.6 F 71 16 112/67 96 07/21/23 02:00 98.2 F 68 16 118/70 95 07/21/23 00:12 97.3 F L 69 16 115/75 95 07/20/23 21:02 98.1 F 65 17 119/75 96 07/20/23 19:50 65 17 07/20/23 19:45 98.1 F 65 16 119/75 96 07/20/23 19:00 98.3 F 67 16 104/71 95 07/20/23 18:30 107/75 07/20/23 18:20 107/75 07/20/23 18:10 115/78 07/20/23 18:00 94 L 07/20/23 17:50 101/69 94 L 07/20/23 17:40 101/66 92 L 07/20/23 17:30 93 L 07/20/23 17:20 97/64 93 L 07/20/23 17:10 96/66 94 L 07/20/23 17:00 91 L 07/20/23 16:50 95/65 92 L 07/20/23 16:40 94/61 92 L 07/20/23 16:30 93 L 07/20/23 16:20 87/56 92 L 07/20/23 16:10 89/59 93 L 07/20/23 16:00 93 L 07/20/23 15:50 96/52 90 L 07/20/23 15:40 94/53 92 L 07/20/23 15:30 92 L 07/20/23 15:20 89/55 93 L 07/20/23 15:10 104/65 93 L 07/20/23 15:00 93 L 07/20/23 14:50 84/55 93 L 07/20/23 14:40 89/52 93 L 07/20/23 14:30 94 L 07/20/23 14:20 86/54 94 L 07/20/23 14:10 83/52 96 07/20/23 14:00 93 L 07/20/23 13:50 85/52 95 07/20/23 13:40 90/50 100 07/20/23 13:30 100 Intake and Output 07/20/23 07/21/23 07/21/23 22:59 06:59 14:59 Intake Total 1415 Balance 1415 Intake: Intake, IV Titration 825 Amount Sodium Chloride 0.9% 1, 825 000 ml @ 75 mls/hr IV . [id number] [facility] Rx#:[id number] Oral 590 Other: Voiding Method Toilet Bedside Commode # Voids 2 Weight 74.843 kg Results CBC & Chem 7: 07/21/23 04:50 07/21/23 04:44 Labs: Abnormal Lab Results - Last 24 Hours (Table) 07/20/23 07/21/23 07/21/23 Range/Units 20:55 04:44 04:50 WBC 15.28 H (4.50-10.00) X 10*3/uL RBC 3.11 L (4.10-5.20) X 10*6/uL Hgb 8.9 L (12.0-15.0) g/dL Hct 27.9 L (37.2-46.3) % MCHC 31.9 L (32.0-37.0) g/dL RDW 16.0 H (11.5-14.5) % Immature Gran # 0.08 H (0.00-0.04) X 10*3/uL Neutrophils # 11.54 H (1.80-7.70) X 10*3/uL Monocytes # 1.50 H (0.20-1.00) X 10*3/uL BUN 30.5 H (9.0-27.0) mg/dL Creatinine 6.8 H (0.6-1.5) mg/dL Est GFR (CKD-EPI) 6 L (>=60) BUN/Creatinine Ratio 4.49 L (12.00-20.00) Ratio Calcium 8.6 L (8.7-10.3) mg/dL Total Protein 4.3 L (6.2-8.2) g/dL Albumin 2.3 L (3.8-4.9) g/dL Albumin/Globulin Ratio 1.15 L (1.60-3.17) Ratio Urine Appearance Turbid H (Clear) Urine Protein 2+ H (Negative) Urine Blood Small H (Negative) Ur Leukocyte Esterase Large H (Negative) Urine RBC 12 H (0-5) /hpf Urine WBC >182 H (0-5) /hpf Urine WBC Clumps Many H (None) /hpf Ur Squamous Epith Cells 12 H (0-4) /hpf Urine Bacteria Few H (None) /hpf Assessment and Plan Plan: 1patient presented to hospital with low-grade fever did have significant vomiting patient did have similar presentation last time when she was admitted to hospital and was diagnosed with a left renal abscess in this patient who s/p CT-guided drainage culture did grow E. coli that was sensitive to ceftriaxone and the patient has completed extensive course of IV followed by oral antibiotic therapy now presenting with similar symptoms concerning for likely left renal abscess 2-we will obtain a CT of the abdominal pannus with IV contrast patient unable to take oral contrast because of her nausea and vomiting per the nursing staff 3-continue vancomycin however will add Rocephin 2 g daily while waiting for the culture to finalize 4if left renal abscess is confirmed patient would benefit from nephrectomy because of recurrent infection this was explained to the patient and the family in layman terms We will follow on clinical condition and cultures to further adjust medication if needed Thank you for this consultation we will follow the patient along with you Dictation was produced using [employer] dictation software. please excuse any grammatical, word or spelling errors. Time with Patient: Greater than 30
[2023-07-22] MEDS: ONDANSETRON 4 MG/2 ML VIAL IVP PRN (08:45)
[2023-07-22] MEDS: FERROUS SULFATE 325 MG TAB PO SCH (08:48)
[2023-07-22] MEDS: CHOLECALCIFEROL 25 MCG (1000 IU) TABLET PO SCH (08:48)
[2023-07-22] MEDS: AMIODARONE 200 MG TAB PO SCH ×2 (08:48→20:35)
[2023-07-22] MEDS: allopurinoL 100 MG TAB PO SCH ×2 (08:48→20:35)
[2023-07-22] MEDS: SODIUM BICARBONATE TAB 650 MG TAB PO SCH ×2 (08:48→20:35)
[2023-07-22] MEDS: METOPROLOL TARTRATE 12.5 MG TAB PO SCH ×2 (08:48→20:35)
[2023-07-22] MEDS: CALCIUM ACETATE 667 MG TAB PO SCH ×2 (08:49→16:58)
[2023-07-22] MEDS: PANTOPRAZOLE 40 MG/10 ML VIAL IV SCH (08:50)
[2023-07-22] MEDS: ASPIRIN 81 MG PO SCH (08:50)
[2023-07-22 11:01] LABS: Basophils # (A) 0.03 X 10*3/uL (0.00-0.10); Basophils % (A) 0.2 %; Eosinophils # (A) 0.59 X 10*3/uL (0.04-0.35); Eosinophils % (A) 4.7 %; HCT 29.6 % (37.2-46.3); HGB 9.6 g/dL (12.0-15.0); Lymphocytes # (A) 0.91 X 10*3/uL (0.90-5.00); Lymphocytes % (A) 7.2 %; MCH 28.7 pg (27.0-32.0); MCHC 32.4 g/dL (32.0-37.0); MCV 88.6 FL (80.0-97.0); Mean Platelet Volume 9.8 FL (9.5-12.2); Monocytes # (A) 0.84 X 10*3/uL (0.20-1.00); Monocytes % (A) 6.6 %; NRBC Per 100 WBC 0 X 10*3/uL (0.00-0.01); Neutrophils # (A) 10.23 X 10*3/uL (1.80-7.70); Neutrophils % (A) 80.7 %; Platelet Count 239 X 10*3/uL (140-440); RBC 3.34 X 10*6/uL (4.10-5.20); RDW 15.9 % (11.5-14.5); WBC 12.67 X 10*3/uL (4.50-10.00)
[2023-07-22 11:27] LABS: BUN/Creat Ratio 4.67 Ratio (12.00-20.00); Calcium 8.3 mg/dL (8.7-10.3); Carbon Dioxide 24.1 mmol/L (21.6-31.8); Chloride 100 mmol/L (96-109); Glucose 71 mg/dL (70-110); Potassium 3.5 mmol/L (3.5-5.5); Sodium 135 mmol/L (135-145)
--- NOTE | 2023-07-22 12:54 | P.PN ---
Subjective Patient is seen for follow-up for end-stage renal disease. Currently maintained on peritoneal dialysis. Urine cultures growing gram-negative bacilli. Status post CT of the abdomen yesterday and official report is still pending. Urology has been consulted for possible need for left nephrectomy given unresolving infection with history of recent left renal abscess. No significant complaints today. Patient is maintained on IV fluids. Blood pressure has improved. Objective - Vital Signs Vital signs: Vital Signs Temp 97.8 F 07/22/23 11:52 Pulse 80 07/22/23 11:52 Resp 16 07/22/23 11:52 BP 106/74 07/22/23 11:52 Pulse Ox 93 L 07/22/23 11:52 FiO2 Intake & Output 07/21/23 07/22/23 07/22/23 18:59 06:59 18:59 Intake Total 900 Balance 900 Intake: Intake, IV Titration 900 Amount Sodium Chloride 0.9% 1, 600 000 ml @ 50 mls/hr IV . Q20H [facility] Rx#:[id number] Vancomycin 1,250 mg In 250 Sodium Chloride 0.9% 250 ml @ 125 mls/hr IVPB ONCE ONE Rx#:[id number] cefTRIAXone 2 gm In 50 Sodium Chloride 0.9% 50 ml @ 100 mls/hr IVPB Q24HR [facility] Rx#:[id number] Other: Voiding Method Toilet Toilet Toilet Bedside Commode Bedside Commode Bedside Commode # Voids 2 # Bowel Movements 2 - Exam Patient is awake, comfortable, alert oriented 3. No acute distress. Examination of the heart S1 and S2 Examination of the lungs bilateral breath sounds are heard Abdomen is soft nontender Examination of lower extremities shows no evidence of edema BUNGY JUMP [employer]STER exam grossly intact - Labs CBC & Chem 7: 07/22/23 06:18 07/22/23 06:18 Labs: Abnormal Lab Results - Last 24 Hours (Table) 07/22/23 07/22/23 Range/Units 06:18 06:18 WBC 12.67 H (4.50-10.00) X 10*3/uL RBC 3.34 L (4.10-5.20) X 10*6/uL Hgb 9.6 L (12.0-15.0) g/dL Hct 29.6 L (37.2-46.3) % RDW 15.9 H (11.5-14.5) % Immature Gran # 0.07 H (0.00-0.04) X 10*3/uL Neutrophils # 10.23 H (1.80-7.70) X 10*3/uL Eosinophils # 0.59 H (0.04-0.35) X 10*3/uL BUN 28.0 H (9.0-27.0) mg/dL Creatinine 6.0 H (0.6-1.5) mg/dL Est GFR (CKD-EPI) 7 L (>=60) BUN/Creatinine Ratio 4.67 L (12.00-20.00) Ratio Calcium 8.3 L (8.7-10.3) mg/dL Microbiology - Last 24 Hours (Table) 07/20/23 20:55 Urine Culture - Preliminary Urine,Voided Gram Neg Bacilli 07/20/23 15:51 Blood Culture - Preliminary Blood 07/20/23 15:51 Blood Culture - Preliminary Blood Assessment and Plan Assessment: 1. End-stage renal disease maintained on peritoneal dialysis. 2. Persistent nausea and vomiting associated with underlying infection, improving 3. Left renal abscess status post CT drainage in May 2023 and status post IV antibiotics as outpatient. There is consideration for possible need for left nephrectomy due to persistent infection and repeated admissions. 4. Hypotension secondary to underlying sepsis 5. CK D mineral bone disorder Plan: Continue antibiotics Follow up on urology consult
--- NOTE | 2023-07-22 14:28 | P.PN ---
Subjective Progress Note Date: 07/22/23 Hospital Course: 82-year-old female with history of end-stage renal disease on peritoneal dialysis, atrial fibrillation, presenting with nausea and vomiting and lightheadedness. In the ED, temperature was 99.2, pulse 100, respiratory rate 18, blood pressure down to 83/52, saturating well on room air. White count 19, neutrophilic predominant, sodium 133, potassium 4.2, creatinine 7.4. She was given 2 L of normal saline in the ER. She is admitted for dehydration, nausea, vomiting. Nephrology was consulted. Urinalysis positive for multidrug resistant drip, patient started on vancomycin. Also on peritoneal dialysis. ID consulted. CT abdomen and pelvis pending. GI also following. Surgery EGD likely tomorrow. Subjective: Seen and examined at bedside. No acute events overnight. Feeling a lot better today. Weakness is improving Pertinent positives and negatives as discussed above, a complete review of systems was performed and all other systems are negative. Vitals Signs Reviewed. General: nontoxic, no distress, appears at stated age Derm: warm, dry, PD catheter clean, no erythema noted Head: atraumatic, normocephalic, symmetric Eyes: EOMI, no lid lag, anicteric sclera, pupils equal round reactive to light ENT: Nose and ears atraumatic Neck: No thyromegaly, supple Mouth: no lip lesion, mucus membranes moist Cardiovascular: S1S2 reg, no murmur, no edema Lungs: clear to auscultation bilateral, no rhonchi, no rales, no wheeze, no accessory muscle use Abdominal: soft, nontender to palpation, no guarding, no appreciable organomegaly Ext: no gross muscle atrophy, muscle strength muscle strength 5 out of 5 in all 4 extremities, no contractures Neuro: CN II-XII grossly intact Psych: Alert, oriented, appropriate affect Data Reviewed Today: Pertinent Labs: WBC 12.67, hemoglobin 9.6, creatinine 6, potassium 3.5, urinalysis positive for enterococcus Imaging: CT abdomen pel independently interpreted polycystic kidney, will review the images with radiology Assessment and Plan: Sepsis likely secondary to urinary tract infection Leukocytosis Presyncope Dehydration Nausea and vomiting, persistent, improving ESRD on peritoneal dialysis -Urine cultures positive for multidrug resistant enterococcus, patient now on IV ceftriaxone 2 g every 24 hours, vancomycin discontinued -ID following, CT abdomen is still pelvis read is still pending -Blood cultures pending -Continue midodrine at 10 TID PRN -Continue normal saline at 50 mL an hour -Nephrology note reviewed, agree with IV antibiotics and urology consulted for possible nephrectomy -GI following, possible EGD today -Eliquis being held -PT/OT consulted Chronic: Atrial fibrillation Gout HLD Hx of TIA DVT ppx: SCDs Code status: Full code, likely just for procedure, otherwise patient wants to be DNR/DNI Anticipated discharge place: Pending clinical course Anticipated discharge time: Pending clinical course Objective - Vital Signs Vital signs: Vital Signs Temp 98.4 F 07/22/23 12:58 Pulse 73 07/22/23 12:58 Resp 16 07/22/23 11:52 BP 120/83 07/22/23 12:58 Pulse Ox 93 L 07/22/23 12:58 FiO2 Intake & Output 07/21/23 07/22/23 07/22/23 18:59 06:59 18:59 Intake Total 900 Balance 900 Intake: Intake, IV Titration 900 Amount Sodium Chloride 0.9% 1, 600 000 ml @ 50 mls/hr IV . Q20H [facility] Rx#:[id number] Vancomycin 1,250 mg In 250 Sodium Chloride 0.9% 250 ml @ 125 mls/hr IVPB ONCE ONE Rx#:[id number] cefTRIAXone 2 gm In 50 Sodium Chloride 0.9% 50 ml @ 100 mls/hr IVPB Q24HR [facility] Rx#:[id number] Other: Voiding Method Toilet Toilet Toilet Bedside Commode Bedside Commode Bedside Commode # Voids 2 # Bowel Movements 2 - Labs CBC & Chem 7: 07/22/23 06:18 07/22/23 06:18 Labs: Abnormal Lab Results - Last 24 Hours (Table) 07/22/23 07/22/23 Range/Units 06:18 06:18 WBC 12.67 H (4.50-10.00) X 10*3/uL RBC 3.34 L (4.10-5.20) X 10*6/uL Hgb 9.6 L (12.0-15.0) g/dL Hct 29.6 L (37.2-46.3) % RDW 15.9 H (11.5-14.5) % Immature Gran # 0.07 H (0.00-0.04) X 10*3/uL Neutrophils # 10.23 H (1.80-7.70) X 10*3/uL Eosinophils # 0.59 H (0.04-0.35) X 10*3/uL BUN 28.0 H (9.0-27.0) mg/dL Creatinine 6.0 H (0.6-1.5) mg/dL Est GFR (CKD-EPI) 7 L (>=60) BUN/Creatinine Ratio 4.67 L (12.00-20.00) Ratio Calcium 8.3 L (8.7-10.3) mg/dL Microbiology - Last 24 Hours (Table) 07/20/23 20:55 Urine Culture - Preliminary Urine,Voided Gram Neg Bacilli 07/20/23 15:51 Blood Culture - Preliminary Blood 07/20/23 15:51 Blood Culture - Preliminary Blood
--- NOTE | 2023-07-22 14:37 | CT ---
EXAMINATION TYPE: CT abdomen pelvis w con CT DLP: 1533.9 mGycm, Automated exposure control for dose reduction was used. DATE OF EXAM: 07/22/2023 8:06 AM COMPARISON: 05/29/2023 CLINICAL INDICATION:Female, 82 years old with history of ? left renal abscess; left renal abscess TECHNIQUE: Axial CT abdomen pelvis w con;Sagittal and coronal reformats were created on a separate w orkstation. Contrast used:80 cc mL of Isovue 300 with IV Contrast, (none if empty) Oral contrast used: without Oral Contrast (none if empty) FINDINGS: LOWER CHEST: Unremarkable ABDOMEN LIVER: Scattered probable simple appearing cyst. GALLBLADDER AND BILE DUCTS: Layering gallstones in the gallbladder lumen. PANCREAS: Unremarkable. SPLEEN: Unremarkable. ADRENAL GLANDS: Unremarkable. KIDNEYS AND URETERS: The left cortical suspected abscess /fluid collection on prior now measures decr eased in size with decreased/ resolved gas. These suspected abscess now measures 4.4 x 3.9 cm. Previo usly measuring 7.5 x 4.3 cm. Polycystic kidneys bilaterally. No evidence for obstructive uropathy or renal calculus. PELVIS BLADDER: Unremarkable REPRODUCTIVE: Unremarkable. ABDOMEN & PELVIS STOMACH AND BOWEL: No evidence of bowel obstruction. Moderate hiatal hernia is present. Scattered col onic diverticula present. PERITONEUM/RETROPERITONEUM: Scattered pneumoperitoneum foci in the anterior abdomen. Peritoneal drain age catheter VASCULATURE: No evidence of aortic aneurysm. MUSCULOSKELETAL: No acute osseous abnormalities LYMPH NODES: No gross evidence for lymphadenopathy. SOFT TISSUE/ABDOMINAL WALL: Bilateral fat containing inguinal hernias. IMPRESSION: 1. The left cortical suspected abscess on prior now has decreased in size with resolved gas. No lindy uring 4.4 x 3.9 cm. 2. Peritoneal dialysis catheter with pneumoperitoneum. 3. Cholelithiasis. 4. Multi cystic kidneys. 5. Colonic diverticulosis.
[2023-07-22] MEDS ORDERED: IV FLUID CONTINUATION 700 ML IV ONE (16:33)
--- NOTE | 2023-07-22 16:34 | P.PN ---
Subjective Progress Note Date: 07/22/23 Principal diagnosis: Reason for follow-up is UTI and concern for left renal abscess Patient is a 82-year female with a past medical history significant for end-stage renal disease on peritoneal dialysis recent admission to the hospital with left renal abscess status post CT-guided drainage culture positive for E. coli for the patient is completed about 6 weeks of antibiotic therapy presenting back to the hospital with intractable nausea and vomiting On today's evaluation that is 07/22/2023 the patient remains to be afebrile patient mention she is feeling better today and no further vomiting no chest pain shortness of breath or cough no diarrhea. Patient white count is down to 12.67, creatinine 6.0 urine is growing gram- negative bacilli blood culture has been negative Objective - Vital Signs Vital signs: Vital Signs Temp 98.4 F 07/22/23 07:06 Pulse 78 07/22/23 07:06 Resp 16 07/22/23 07:06 BP 97/66 07/22/23 07:06 Pulse Ox 92 L 07/22/23 07:06 FiO2 Intake & Output 07/21/23 07/22/23 07/22/23 18:59 06:59 18:59 Intake Total 900 Balance 900 Intake: Intake, IV Titration 900 Amount Sodium Chloride 0.9% 1, 600 000 ml @ 50 mls/hr IV . Q20H [facility] Rx#:[id number] Vancomycin 1,250 mg In 250 Sodium Chloride 0.9% 250 ml @ 125 mls/hr IVPB ONCE ONE Rx#:[id number] cefTRIAXone 2 gm In 50 Sodium Chloride 0.9% 50 ml @ 100 mls/hr IVPB Q24HR [facility] Rx#:[id number] Other: Voiding Method Toilet Toilet Toilet Bedside Commode Bedside Commode Bedside Commode # Voids 2 # Bowel Movements 2 - Exam GENERAL DESCRIPTION: An elderly female lying in bed in no distress RESPIRATORY SYSTEM: Unlabored breathing , decreased breath sounds at bases HEART: S1 S2 regular rate and rhythm , ABDOMEN: Soft , no tenderness EXTREMITIES: No edema feet - Labs CBC & Chem 7: 07/22/23 06:18 07/22/23 06:18 Labs: Microbiology - Last 24 Hours (Table) 07/20/23 20:55 Urine Culture - Preliminary Urine,Voided Gram Neg Bacilli 07/20/23 15:51 Blood Culture - Preliminary Blood 07/20/23 15:51 Blood Culture - Preliminary Blood Assessment and Plan (1) Failure of outpatient treatment Current Visit: Yes Status: Acute Code(s): Z78.9 - OTHER SPECIFIED HEALTH STATUS SNOMED Code(s): 955874393 (2) Leukocytosis Current Visit: No Status: Acute Code(s): D72.829 - ELEVATED WHITE BLOOD CELL COUNT, UNSPECIFIED SNOMED Code(s): 477535221 (3) Renal abscess Current Visit: No Status: Acute Code(s): N15.1 - RENAL AND PERINEPHRIC ABSCESS SNOMED Code(s): 5175442 Plan: 1patient presented to hospital with low-grade fever did have significant vomiting patient did have similar presentation last time when she was admitted to hospital and was diagnosed with a left renal abscess in this patient who s/p CT-guided drainage culture did grow E. coli that was sensitive to ceftriaxone and the patient has completed extensive course of IV followed by oral antibiotic therapy now presenting with similar symptoms concerning for likely left renal abscess 2CT abdominal pelvis today shows left-sided renal abscess which is slightly decreased in size 3keeping in mind the patient did have persistent abscess mildly decreased after CT-guided drainage and almost 6-week course of antibiotic therapy may benefit from urology evaluation for possible surgical drainage 4-with urine culture showing gram-negative we will continue patient on Rocephin and discontinue vancomycin Dictation was produced using [employer] dictation software. please excuse any grammatical, word or spelling errors.
[2023-07-22] MEDS ORDERED: PROPOFOL 10 MG/ML 20 ML VIAL IV ONE (16:42)
[2023-07-22] MEDS ORDERED: LIDOCAINE 1% INJ 10MG/ML (20 ML MDV) ONE (16:42)
--- NOTE | 2023-07-22 16:59 | P.PCN ---
Date of Procedure: 07/22/23 Procedure(s) Performed: BRIEF HISTORY: Patient is a 82-year-old, pleasant, white female scheduled for an upper endoscopy as a part of evaluation of intermittent episodes of nausea vomiting for the last 3 months duration. She had 3 hospitalizations in the last 3 months. She reports occasional epigastric pain.. PROCEDURE PERFORMED: Esophagogastroduodenoscopy with biopsy. PREOPERATIVE DIAGNOSIS: Chronic intermittent nausea vomiting of 3 months duration. IV sedation per anesthesia. PROCEDURE: After informed consent was obtained, the patient was brought into the endoscopy unit. IV sedation was administered by Anesthesia under continuous monitoring. Initially the Olympus GIF-140 video endoscope was inserted into the mouth. Esophagus intubated without any difficulty. It was gradually advanced into the stomach and duodenum and carefully examined. The bulb and the second part of the duodenum appeared normal. The scope at this time was withdrawn to the stomach, adequately insufflated with air, and upon careful examination, mucosa of the antrum, had mild gastritis and biopsies were done from this area. Mucosa of the body, cardia and the fundus appeared normal. The scope was then withdrawn into the esophagus. Mall hiatal hernia noted. The GE junction was located at 39 cm from the incisors. The esophagus appeared normal. There were no erosions or ulcerations seen and the patient tolerated the procedure well. IMPRESSION: 1. Mild antral gastritis. 2. Small hiatal hernia. RECOMMENDATIONS: The findings of this examination were discussed with the patient well as her family. She was advised to follow with the biopsy results. Continue with antiemetics as needed. Her symptoms probably related to kidney abscess for which she is on broad-spectrum antibiotics. Advance diet as tolerated.
[2023-07-22] MEDS: ATORVASTATIN 40 MG TAB PO SCH (20:35)
[2023-07-22 21:48] LABS: Appearance,BF Clear (Clear)
[2023-07-23] MEDS: DIALYSIS (PERIT 1.5%) 2,000 ML 30 G/2,000 ML BAG INTRAPERIT SCH (05:45)
[2023-07-23 06:46] LABS: Anisocytosis Slight; Basophils % (A) 0 %; Eosinophils # (A) 0.9 k/uL (0-0.7); Eosinophils % (A) 8 %; HCT 31.2 % (34.0-46.0); HGB 10.1 gm/dL (11.4-16.0); Hypochromasia Slight; Lymphocytes # (A) 1.2 k/uL (1.0-4.8); Lymphocytes % (A) 11 %; MCH 29.7 pg (25.0-35.0); MCHC 32.3 g/dL (31.0-37.0); MCV 91.9 fL (80.0-100.0); Mean Platelet Volume 8.2; Monocytes # (A) 0.5 k/uL (0-1.0); Monocytes % (A) 5 %; Neutrophils # (A) 8.2 k/uL (1.3-7.7); Neutrophils % (A) 73 %; Platelet Count 247 k/uL (150-450); RBC 3.39 m/uL (3.80-5.40); RDW 16.4 % (11.5-15.5); WBC 11.3 k/uL (3.8-10.6)
[2023-07-23 07:17] LABS: African American GFR (CKD) 8 (>60 ml/min/1.73 sqM); Anion Gap 11 mmol/L; Blood Urea Nitrogen 30 mg/dL (7-17); Carbon Dioxide 22 mmol/L (22-30); Chloride 100 mmol/L (98-107); Glucose 81 mg/dL (74-99); Non-African American GFR(CKD) 7 (>60 ml/min/1.73 sqM); Sodium 133 mmol/L (137-145)
[2023-07-23] MEDS ORDERED: POTASSIUM CHLORIDE ER 20 MEQ TAB.ER PO STA (08:18)
[2023-07-23] MEDS: ASPIRIN 81 MG PO SCH (08:28)
[2023-07-23] MEDS: allopurinoL 100 MG TAB PO SCH ×2 (08:28→20:09)
[2023-07-23] MEDS: CHOLECALCIFEROL 25 MCG (1000 IU) TABLET PO SCH (08:28)
[2023-07-23] MEDS: FERROUS SULFATE 325 MG TAB PO SCH (08:28)
[2023-07-23] MEDS: CALCIUM ACETATE 667 MG TAB PO SCH ×2 (08:28→17:15)
[2023-07-23] MEDS: PANTOPRAZOLE 40 MG/10 ML VIAL IV SCH (08:28)
[2023-07-23] MEDS: METOPROLOL TARTRATE 12.5 MG TAB PO SCH ×2 (08:28→20:09)
[2023-07-23] MEDS: SODIUM BICARBONATE TAB 650 MG TAB PO SCH ×2 (08:28→20:09)
[2023-07-23] MEDS: AMIODARONE 200 MG TAB PO SCH ×2 (08:28→20:09)
[2023-07-23] MEDS: SODIUM CHLORIDE 0.9% 1,000 ML IV SCH ×2 (08:34→20:12)
--- NOTE | 2023-07-23 11:28 | P.PN ---
Subjective Patient is seen for follow-up for end-stage renal disease. Currently maintained on peritoneal dialysis. Urine cultures growing gram-negative bacilli. Status post CT of the abdomen which showed abscess in the left kidney slightly smaller however this is post-CT drainage of abscess last admission. Urology has been consulted for possible need for left nephrectomy given unresolving infection with history of recent left renal abscess. No significant complaints today. Blood pressure has improved. Status post IV fluids. Objective - Vital Signs Vital signs: Vital Signs Temp 98.5 F 07/23/23 07:12 Pulse 66 07/23/23 07:12 Resp 16 07/23/23 07:12 BP 113/73 07/23/23 07:12 Pulse Ox 96 07/23/23 07:12 FiO2 Intake & Output 07/22/23 07/23/23 07/23/23 18:59 06:59 18:59 Intake Total 800 720 Balance 800 720 Intake: IV 100 Intake, IV Titration 700 600 Amount Sodium Chloride 0.9% 1, 400 600 000 ml @ 50 mls/hr IV . Q20H [facility] Rx#:[id number] Vancomycin 1,250 mg In 250 Sodium Chloride 0.9% 250 ml @ 125 mls/hr IVPB ONCE ONE Rx#:[id number] cefTRIAXone 2 gm In 50 Sodium Chloride 0.9% 50 ml @ 100 mls/hr IVPB Q24HR [facility] Rx#:[id number] Oral 120 Other: Voiding Method Toilet Toilet Bedside Commode Bedside Commode # Voids 2 - Exam Patient is awake, comfortable, alert oriented 3. No acute distress. Examination of the heart S1 and S2 Examination of the lungs bilateral breath sounds are heard Abdomen is soft nontender Examination of lower extremities shows 1+ edema [employer] exam grossly intact - Labs CBC & Chem 7: 07/23/23 06:22 07/23/23 06:22 Labs: Abnormal Lab Results - Last 24 Hours (Table) 07/22/23 07/23/23 07/23/23 Range/Units 06:18 06:22 06:22 WBC 11.3 H (3.8-10.6) k/uL RBC 3.39 L (3.80-5.40) m/uL Hgb 10.1 L (11.4-16.0) gm/dL Hct 31.2 L (34.0-46.0) % RDW 16.4 H (11.5-15.5) % Neutrophils # 8.2 H (1.3-7.7) k/uL Eosinophils # 0.9 H (0-0.7) k/uL Sodium (137-145) mmol/L Potassium (3.5-5.1) mmol/L BUN 28.0 H (9.0-27.0) mg/dL Creatinine 6.0 H 5.41 H (0.6-1.5) mg/dL Est GFR (CKD-EPI) 7 L (>=60) BUN/Creatinine Ratio 4.67 L (12.00-20.00) Ratio Calcium 8.3 L (8.7-10.3) mg/dL 07/23/23 Range/Units 06:22 WBC (3.8-10.6) k/uL RBC (3.80-5.40) m/uL Hgb (11.4-16.0) gm/dL Hct (34.0-46.0) % RDW (11.5-15.5) % Neutrophils # (1.3-7.7) k/uL Eosinophils # (0-0.7) k/uL Sodium 133 L (137-145) mmol/L Potassium 3.0 L (3.5-5.1) mmol/L BUN 30 H (9.0-27.0) mg/dL Creatinine 5.38 H (0.6-1.5) mg/dL Est GFR (CKD-EPI) (>=60) BUN/Creatinine Ratio (12.00-20.00) Ratio Calcium 8.0 L (8.7-10.3) mg/dL Microbiology - Last 24 Hours (Table) 07/22/23 13:21 Gram Stain - Preliminary Peritoneal Fluid Body Fluid Culture - Preliminary 07/20/23 20:55 Urine Culture - Final Urine,Voided Enterobacter aerogenes 07/20/23 15:51 Blood Culture - Preliminary Blood 07/20/23 15:51 Blood Culture - Preliminary Blood Assessment and Plan Assessment: 1. End-stage renal disease maintained on peritoneal dialysis. 2. Persistent nausea and vomiting associated with underlying infection, improving with treatment of infection 3. Left renal abscess status post CT drainage in May 2023 and status post IV antibiotics as outpatient. There is consideration for possible need for left nephrectomy due to persistent infection and repeated admissions. Repeat CT sh ows decrease in size of abscess however this is status post CT-guided drainage on last admission. 4. Hypotension secondary to underlying sepsis 5. CK D mineral bone disorder Plan: Continue antibiotics Follow up on urology consult
[2023-07-23] MEDS ORDERED: CEFEPIME 2 GM in SODIUM CHLORIDE 0.9% 100 ML IVPB STA (11:56)
[2023-07-23] MEDS ORDERED: DIALYSIS (PERITONEAL) DEX 2.5% 2,500 ML BAG INTRAPERIT SCH (12:00)
--- NOTE | 2023-07-23 12:00 | P.PN ---
Subjective Progress Note Date: 07/23/23 Hospital Course: 82-year-old female with history of end-stage renal disease on peritoneal dialy sis, atrial fibrillation, presenting with nausea and vomiting and lightheadedness. In the ED, temperature was 99.2, pulse 100, respiratory rate 18, blood pressure down to 83/52, saturating well on room air. White count 19, neutrophilic predominant, sodium 133, potassium 4.2, creatinine 7.4. She was given 2 L of normal saline in the ER. She is admitted for dehydration, nausea, vomiting. Nephrology was consulted. Urinalysis positive for multidrug resistant drip, patient started on vancomycin. Also on peritoneal dialysis. ID consulted. CT abdomen and pelvis showed left cortical abscess decrease in size. GI also following. EGD showed mild antral gastritis and small hiatal hernia. Urology consulted for surgical intervention and source control. Subjective: Seen and examined at bedside. No acute events overnight. Feeling a lot better today. Weakness is improving. Pertinent positives and negatives as discussed above, a complete review of systems was performed and all other systems are negative. Vitals Signs Reviewed. General: nontoxic, no distress, appears at stated age Derm: warm, dry, PD catheter clean, no erythema noted Head: atraumatic, normocephalic, symmetric Eyes: EOMI, no lid lag, anicteric sclera, pupils equal round reactive to light ENT: Nose and ears atraumatic Neck: No thyromegaly, supple Mouth: no lip lesion, mucus membranes moist Cardiovascular: S1S2 reg, no murmur, no edema Lungs: clear to auscultation bilateral, no rhonchi, no rales, no wheeze, no accessory muscle use Abdominal: soft, nontender to palpation, no guarding, no appreciable organ omegaly Ext: no gross muscle atrophy, muscle strength muscle strength 5 out of 5 in all 4 extremities, no contractures Neuro: CN II-XII grossly intact Psych: Alert, oriented, appropriate affect Data Reviewed Today: Pertinent Labs: WBC 11.3, hemoglobin 10.1, Cr 5.38, potassium 3 Imaging: No new imaging Assessment and Plan: Sepsis likely secondary to urinary tract infection Leukocytosis Presyncope Dehydration Nausea and vomiting, persistent, improving Mild antral gastritis Small hiatal hernia ESRD on peritoneal dialysis Hypokalemia -Urine cultures positive for multidrug resistant enterococcus, likely colonization, previous aspirate cultures positive for E.coli -started on IV cefepime 1g q12 hr -ID following -Blood cultures no growth to date -Continue midodrine at 10 TID PRN -Continue normal saline at 50 mL an hour -Discussed management with nephrology, agree with IV antibiotics and urology consulted for possible nephrectomy -GI completed EGD, continue IV pantoprazole 40 mg daily -Eliquis being held -Given 20 of oral potassium today, repeat BMP and CBC tomorrow Chronic: Atrial fibrillation Gout HLD Hx of TIA DVT ppx: SCDs Code status: Full code, likely just for procedure, otherwise patient wants to be DNR/DNI Anticipated discharge place: Pending clinical course Anticipated discharge time: Pending clinical course Objective - Vital Signs Vital signs: Vital Signs Temp 98.5 F 07/23/23 07:12 Pulse 66 07/23/23 07:12 Resp 16 07/23/23 07:12 BP 113/73 07/23/23 07:12 Pulse Ox 96 07/23/23 07:12 FiO2 Intake & Output 07/22/23 07/23/23 07/23/23 18:59 06:59 18:59 Intake Total 800 720 Balance 800 720 Intake: IV 100 Intake, IV Titration 700 600 Amount Sodium Chloride 0.9% 1, 400 600 000 ml @ 50 mls/hr IV . Q20H [facility] Rx#:[id number] Vancomycin 1,250 mg In 250 Sodium Chloride 0.9% 250 ml @ 125 mls/hr IVPB ONCE ONE Rx#:[id number] cefTRIAXone 2 gm In 50 Sodium Chloride 0.9% 50 ml @ 100 mls/hr IVPB Q24HR [facility] Rx#:[id number] Oral 120 Other: Voiding Method Toilet Toilet Bedside Commode Bedside Commode # Voids 2 - Labs CBC & Chem 7: 07/23/23 06:22 07/23/23 06:22 Labs: Abnormal Lab Results - Last 24 Hours (Table) 07/23/23 07/23/23 07/23/23 Range/Units 06:22 06:22 06:22 WBC 11.3 H (3.8-10.6) k/uL RBC 3.39 L (3.80-5.40) m/uL Hgb 10.1 L (11.4-16.0) gm/dL Hct 31.2 L (34.0-46.0) % RDW 16.4 H (11.5-15.5) % Neutrophils # 8.2 H (1.3-7.7) k/uL Eosinophils # 0.9 H (0-0.7) k/uL Sodium 133 L (137-145) mmol/L Potassium 3.0 L (3.5-5.1) mmol/L BUN 30 H (7-17) mg/dL Creatinine 5.41 H 5.38 H (0.52-1.04) mg/dL Calcium 8.0 L (8.4-10.2) mg/dL Microbiology - Last 24 Hours (Table) 07/22/23 13:21 Gram Stain - Preliminary Peritoneal Fluid Body Fluid Culture - Preliminary 07/20/23 20:55 Urine Culture - Final Urine,Voided Enterobacter aerogenes 07/20/23 15:51 Blood Culture - Preliminary Blood 07/20/23 15:51 Blood Culture - Preliminary Blood
--- NOTE | 2023-07-23 12:38 | P.GSCN ---
History of Present Illness Consult date: 07/23/23 Reason for Consult: Recurrent UTI Requesting physician: Cat Dobbs History of present illness: The patient is an 82-year-old white female on peritoneal dialysis for renal failure. 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 She did not experience flank or abdominal pain at that time. Her primary symptoms were weakness, malaise, and nausea. Urine culture on 05/16/2023 showed an E. coli UTI. The appearance of her kidney improved with antibiotic therapy, but she did have a persistent cyst arising from the posterior aspect of the kidney which was aspirated on 06/06/2023. This showed the same strain of E. coli that was cultured on 05/16/2023. The patient states that she was subsequently treated with 16 days of outpatient IV antibiotic therapy, though Dr. Murguia's note indicates that she was treated with a 6 week course of antibiotics. In any case, she is now readmitted with primary complaints of weakness and intractable nausea. She is being treated with IV hydration and antibiotics and states that she is feeling much better. She states that Dr. Riley is currently treating her with estrogen vaginal cream and cranberry tablets for her recurrent UTIs. Review of Systems - Constitutional Reports weakness, Denies chills, Denies fever - Gastrointestinal Reports nausea, Reports vomiting - Genitourinary Genitourinary: Denies dysuria, Denies flank pain, Denies hematuria Past Medical History Past Medical History: CVA/TIA, Hyperlipidemia, Hypertension, Renal Disease Additional Past Medical History / Comment(s): TIA, ESRD on periotneal dialysis, UTIs, dizziness, gout, arthiritis, back pain with UTIs. History of Any Multi-Drug Resistant Organisms: None Reported Past Surgical History: Section, Hysterectomy, Joint Replacement, Orthopedic Surgery Additional Past Surgical History / Comment(s): 3 C-Sections, hysterectomy with vaginal repair, bilateral total knees, R shoulder acromioplasty, excision distal clavicle rotator cuff repair, bilateral cataract removal with lens implants, L breast bx-benign, varicose vein stripping bilaterally, peritoneal HD cath Past Anesthesia/Blood Transfusion Reactions: No Reported Reaction Past Psychological History: No Psychological Hx Reported Additional Psychological History / Comment(s): Pt resides with her spouse. She is independent. She uses no assistive devices. She drives. Smoking Status: Never smoker Past Alcohol Use History: None Reported Past Drug Use History: None Reported - Past Family History Brother(s) Family Medical History: Renal Disease Father Family Medical History: Unable to Obtain Mother Family Medical History: Coronary Artery Disease (CAD), CVA/TIA Additional Family Medical History / Comment(s): Mother at 92 yrs of age. She had TIA's. Medications and Allergies Home Medications Medication Instructions Recorded Confirmed Type Omeprazole [PriLOSEC] 20 mg PO HS 05/11/14 07/20/23 History allopurinoL [Zyloprim] 100 mg PO BID 05/22/17 07/20/23 History Ferrous Sulfate [Iron (65 MG 325 mg PO DAILY 11/03/21 07/20/23 History Elemental)] Sodium Bicarbonate Tab 650 mg PO BID 11/03/21 07/20/23 History Cholecalciferol [Vitamin D3 (25 25 mcg PO DAILY 09/15/22 07/20/23 History Mcg = 1000 Iu)] Rosuvastatin [Crestor] 20 mg PO HS 09/15/22 07/20/23 History Cranberry 4200mg 2 tab PO DAILY 05/24/23 07/20/23 History Estrogens, Conjugated Cream 1 applicator VAGINAL MOWEFR 05/24/23 07/20/23 History [Premarin Vaginal Cream] Liqua Martha Protein 1 dose PO BID 05/24/23 07/20/23 History calcitrioL [Calcitriol] 0.25 mcg PO MO 05/24/23 07/20/23 History Aspirin 81 mg PO DAILY #60 tab 06/09/23 07/20/23 Rx Calcium Acetate [PhosLo] 667 mg PO BID-W/MEALS #60 tab 06/09/23 07/20/23 Rx Potassium Chloride ER [K-Dur 10] 10 meq PO DAILY 07/05/23 07/20/23 History Apixaban [Eliquis] 2.5 mg PO BID 90 Days #180 tab 07/08/23 07/20/23 Rx Prochlorperazine [Compazine] 10 mg PO Q6H PRN #40 tab 07/08/23 07/20/23 Rx Amiodarone [Cordarone] 200 mg PO BID 07/20/23 07/20/23 History Metoprolol Tartrate [Lopressor] 12.5 mg PO BID 07/20/23 07/20/23 History Midodrine [ProAmatine] 5 mg PO TID PRN 07/20/23 07/20/23 History Allergies Allergy/AdvReac Type Severity Reaction Status Date / Time losartan [Losartan] Allergy Unknown Verified 07/20/23 14:05 LUANA Inhibitors AdvReac Cough Verified 07/20/23 14:05 levofloxacin [From Levaquin] AdvReac Hallucinati Verified 07/20/23 14:05 ons Surgical - Exam Vital Signs Temp Pulse Resp BP Pulse Ox 99.2 F 100 18 109/64 95 07/20/23 09:35 07/20/23 09:35 07/20/23 09:35 07/20/23 09:35 07/20/23 09:35 - General well developed, well nourished, no distress - Respiratory normal respiratory effort - Abdomen Abdomen: soft, non tender, no guarding, no rigid, no rebound - Psychiatric oriented to time, oriented to person, oriented to place, speech is normal, memory intact Results - Labs 07/23/23 06:22 07/23/23 06:22 Abnormal Lab Results - Last 24 Hours (Table) 07/22/23 07/22/23 07/23/23 Range/Units 06:18 06:18 06:22 WBC 12.67 H (4.50-10.00) X 10*3/uL RBC 3.34 L (4.10-5.20) X 10*6/uL Hgb 9.6 L (12.0-15.0) g/dL Hct 29.6 L (37.2-46.3) % RDW 15.9 H (11.5-14.5) % Immature Gran # 0.07 H (0.00-0.04) X 10*3/uL Neutrophils # 10.23 H (1.80-7.70) X 10*3/uL Eosinophils # 0.59 H (0.04-0.35) X 10*3/uL Sodium (137-145) mmol/L Potassium (3.5-5.1) mmol/L BUN 28.0 H (9.0-27.0) mg/dL Creatinine 6.0 H 5.41 H (0.6-1.5) mg/dL Est GFR (CKD-EPI) 7 L (>=60) BUN/Creatinine Ratio 4.67 L (12.00-20.00) Ratio Calcium 8.3 L (8.7-10.3) mg/dL 07/23/23 07/23/23 Range/Units 06:22 06:22 WBC 11.3 H (4.50-10.00) X 10*3/uL RBC 3.39 L (4.10-5.20) X 10*6/uL Hgb 10.1 L (12.0-15.0) g/dL Hct 31.2 L (37.2-46.3) % RDW 16.4 H (11.5-14.5) % Immature Gran # (0.00-0.04) X 10*3/uL Neutrophils # 8.2 H (1.80-7.70) X 10*3/uL Eosinophils # 0.9 H (0.04-0.35) X 10*3/uL Sodium 133 L (137-145) mmol/L Potassium 3.0 L (3.5-5.1) mmol/L BUN 30 H (9.0-27.0) mg/dL Creatinine 5.38 H (0.6-1.5) mg/dL Est GFR (CKD-EPI) (>=60) BUN/Creatinine Ratio (12.00-20.00) Ratio Calcium 8.0 L (8.7-10.3) mg/dL Microbiology - Last 24 Hours (Table) 07/22/23 13:21 Gram Stain - Preliminary Peritoneal Fluid 07/20/23 20:55 Urine Culture - Final Urine,Voided Enterobacter aerogenes 07/20/23 15:51 Blood Culture - Preliminary Blood 07/20/23 15:51 Blood Culture - Preliminary Blood Diabetes panel 07/22/23 07/23/23 07/23/23 Range/Units 06:18 06:22 06:22 Sodium 135 133 L (135-145) mmol/L Potassium 3.5 3.0 L (3.5-5.5) mmol/L Chloride 100 100 (96-109) mmol/L Carbon Dioxide 24.1 22 (21.6-31.8) mmol/L BUN 28.0 H 30 H (9.0-27.0) mg/dL Creatinine 6.0 H 5.41 H 5.38 H (0.6-1.5) mg/dL Glucose 71 81 (70-110) mg/dL Calcium 8.3 L 8.0 L (8.7-10.3) mg/dL Calcium panel 07/22/23 07/23/23 Range/Units 06:18 06:22 Calcium 8.3 L 8.0 L (8.7-10.3) mg/dL Pituitary panel 07/22/23 07/23/23 07/23/23 Range/Units 06:18 06:22 06:22 Sodium 135 133 L (135-145) mmol/L Potassium 3.5 3.0 L (3.5-5.5) mmol/L Chloride 100 100 (96-109) mmol/L Carbon Dioxide 24.1 22 (21.6-31.8) mmol/L BUN 28.0 H 30 H (9.0-27.0) mg/dL Creatinine 6.0 H 5.41 H 5.38 H (0.6-1.5) mg/dL Glucose 71 81 (70-110) mg/dL Calcium 8.3 L 8.0 L (8.7-10.3) mg/dL Adrenal panel 07/22/23 07/23/23 07/23/23 Range/Units 06:18 06:22 06:22 Sodium 135 133 L (135-145) mmol/L Potassium 3.5 3.0 L (3.5-5.5) mmol/L Chloride 100 100 (96-109) mmol/L Carbon Dioxide 24.1 22 (21.6-31.8) mmol/L BUN 28.0 H 30 H (9.0-27.0) mg/dL Creatinine 6.0 H 5.41 H 5.38 H (0.6-1.5) mg/dL Glucose 71 81 (70-110) mg/dL Calcium 8.3 L 8.0 L (8.7-10.3) mg/dL - Imaging CT scan - abdomen: report reviewed, image reviewed Assessment and Plan Assessment: Urine culture on 05/16/2023 showed an E. coli UTI. Culture of fluid aspirated from a left renal cyst on 06/06/2023 showed the same strain of E. coli. She had an enterococcus UTI later in June, and urine culture obtained on 07/20/2023 shows an Enterobacter UTI. The current CT scan shows no evidence of gas within the kidney. The cyst which was aspirated arises from the posterior aspect of the left kidney, and currently measures 39 x 44 mm, smaller than it was previously. (1) Urinary tract infection Current Visit: No Status: Acute Code(s): N39.0 - URINARY TRACT INFECTION, SITE NOT SPECIFIED SNOMED Code(s): 13535293 Plan: Continue cefepime. It is unclear whether or not the patient still has a renal infection. It does not appear that her current UTI is related to her previous renal infection, given that it is a different organism. I have been asked to consider whether or not she would benefit from a left nephrectomy, and I am not convinced that she would. It would be reasonable to consider repeat aspiration of the renal cyst, as its location makes the cyst very accessible, and consideration could also be given to injection of antibiotics into the cyst. I had a very lengthy discussion with the patient, her , and her son. One of her concerns is her recurrent UTIs despite the use of Estrace vaginal cream and cranberry tablets. I explained to them that it is impossible to determine whether or not the left renal infection is related to the recurrent UTIs. She may benefit from the use of Hiprex for UTI prevention in the future, but this does not come into play until the extent of the left renal infection and possible need for nephrectomy has been clarified. Time with Patient: Greater than 30
[2023-07-23] MEDS: DIALYSIS (PERIT 2.5%) 2,500 ML 50 G/2,000 ML BAG INTRAPERIT SCH ×2 (12:39→17:49)
[2023-07-23] MEDS: ATORVASTATIN 40 MG TAB PO SCH (20:09)
--- NOTE | 2023-07-23 21:48 | P.PN ---
Subjective Progress Note Date: 07/23/23 Principal diagnosis: Reason for follow-up is UTI and concern for left renal abscess Patient is a 82-year female with a past medical history significant for end-stage renal disease on peritoneal dialysis recent admission to the hospital with left renal abscess status post CT-guided drainage culture positive for E. coli for the patient is completed about 6 weeks of antibiotic therapy presenting back to the hospital with intractable nausea and vomiting On today's evaluation that is 07/23/2023 patient continues to be afebrile the patient is breathing comfortably on room air. Denies having any chest pain shortness of breath or cough no further nausea vomiting abdominal pain or any diarrhea. Patient white count of 11.3, creatinine is 5.38 urine has been finalized with Enterobacter that is resistant to Rocephin Objective - Vital Signs Vital signs: Vital Signs Temp 98.5 F 07/23/23 07:12 Pulse 66 07/23/23 07:12 Resp 16 07/23/23 07:12 BP 113/73 07/23/23 07:12 Pulse Ox 96 07/23/23 07:12 FiO2 Intake & Output 07/22/23 07/23/23 07/23/23 18:59 06:59 18:59 Intake Total 800 720 Balance 800 720 Intake: IV 100 Intake, IV Titration 700 600 Amount Sodium Chloride 0.9% 1, 400 600 000 ml @ 50 mls/hr IV . Q20H [facility] Rx#:[id number] Vancomycin 1,250 mg In 250 Sodium Chloride 0.9% 250 ml @ 125 mls/hr IVPB ONCE ONE Rx#:[id number] cefTRIAXone 2 gm In 50 Sodium Chloride 0.9% 50 ml @ 100 mls/hr IVPB Q24HR [facility] Rx#:[id number] Oral 120 Other: Voiding Method Toilet Toilet Bedside Commode Bedside Commode # Voids 2 - Exam GENERAL DESCRIPTION: An elderly female lying in bed in no distress RESPIRATORY SYSTEM: Unlabored breathing , decreased breath sounds at bases HEART: S1 S2 regular rate and rhythm , ABDOMEN: Soft , no tenderness EXTREMITIES: No edema feet - Labs CBC & Chem 7: 07/23/23 06:22 07/23/23 06:22 Labs: Abnormal Lab Results - Last 24 Hours (Table) 07/23/23 07/23/23 07/23/23 Range/Units 06:22 06:22 06:22 WBC 11.3 H (3.8-10.6) k/uL RBC 3.39 L (3.80-5.40) m/uL Hgb 10.1 L (11.4-16.0) gm/dL Hct 31.2 L (34.0-46.0) % RDW 16.4 H (11.5-15.5) % Neutrophils # 8.2 H (1.3-7.7) k/uL Eosinophils # 0.9 H (0-0.7) k/uL Sodium 133 L (137-145) mmol/L Potassium 3.0 L (3.5-5.1) mmol/L BUN 30 H (7-17) mg/dL Creatinine 5.41 H 5.38 H (0.52-1.04) mg/dL Calcium 8.0 L (8.4-10.2) mg/dL Microbiology - Last 24 Hours (Table) 07/22/23 13:21 Gram Stain - Preliminary Peritoneal Fluid Body Fluid Culture - Preliminary 07/20/23 20:55 Urine Culture - Final Urine,Voided Enterobacter aerogenes 07/20/23 15:51 Blood Culture - Preliminary Blood 07/20/23 15:51 Blood Culture - Preliminary Blood Assessment and Plan (1) Failure of outpatient treatment Current Visit: Yes Status: Acute Code(s): Z78.9 - OTHER SPECIFIED HEALTH STATUS SNOMED Code(s): 422623225 (2) Leukocytosis Current Visit: No Status: Acute Code(s): D72.829 - ELEVATED WHITE BLOOD CELL COUNT, UNSPECIFIED SNOMED Code(s): 976649093 (3) Renal abscess Current Visit: No Status: Acute Code(s): N15.1 - RENAL AND PERINEPHRIC ABSCESS SNOMED Code(s): 3197710 Plan: 1patient presented to hospital with low-grade fever did have significant vomiting patient did have similar presentation last time when she was admitted to hospital and was diagnosed with a left renal abscess in this patient who s/p CT-guided drainage culture did grow E. coli that was sensitive to ceftriaxone and the patient has completed extensive course of IV followed by oral antibiotic therapy now presenting with similar symptoms concerning for likely left renal abscess 2CT abdominal pelvis shows left-sided renal abscess which is slightly decreased in size 3urology has been consulted and they are recommending IR drainage of this abscess and the fluid should be sent for the culture I have detailed discussion with the urologist personally and keeping in mind her recurrent abscesses patient benefit from left nephrectomy however he is currently not recommending that 4-with urine culture not showing Enterobacter we will discontinue Rocephin and start the patient on cefepime Family at the bedside multiple question concern answered in layman term Dictation was produced using [employer] dictation software. please excuse any grammatical, word or spelling errors.
[2023-07-24] MEDS: DIALYSIS (PERIT 2.5%) 2,500 ML 50 G/2,000 ML BAG INTRAPERIT SCH ×5 (00:16→23:48)
[2023-07-24 05:57] LABS: Anisocytosis Slight; Basophils # (A) 0.1 k/uL (0-0.2); Basophils % (A) 0 %; Eosinophils # (A) 1.2 k/uL (0-0.7); Eosinophils % (A) 10 %; HCT 33.8 % (34.0-46.0); HGB 10.9 gm/dL (11.4-16.0); Lymphocytes # (A) 1.9 k/uL (1.0-4.8); Lymphocytes % (A) 16 %; MCH 29.4 pg (25.0-35.0); MCHC 32.2 g/dL (31.0-37.0); MCV 91.3 fL (80.0-100.0); Mean Platelet Volume 7.6; Monocytes # (A) 0.6 k/uL (0-1.0); Monocytes % (A) 5 %; Neutrophils # (A) 7.6 k/uL (1.3-7.7); Neutrophils % (A) 65 %; Platelet Count 296 k/uL (150-450); RBC 3.69 m/uL (3.80-5.40); RDW 16.2 % (11.5-15.5); WBC 11.8 k/uL (3.8-10.6)
[2023-07-24 06:09] LABS: African American GFR (CKD) 8 (>60 ml/min/1.73 sqM); Anion Gap 12 mmol/L; Blood Urea Nitrogen 31 mg/dL (7-17); Calcium 8.8 mg/dL (8.4-10.2); Carbon Dioxide 23 mmol/L (22-30); Chloride 100 mmol/L (98-107); Glucose 79 mg/dL (74-99); Magnesium 1.4 mg/dL (1.6-2.3); Non-African American GFR(CKD) 7 (>60 ml/min/1.73 sqM); Potassium 3.4 mmol/L (3.5-5.1); Sodium 135 mmol/L (137-145)
[2023-07-24] MEDS: ASPIRIN 81 MG PO SCH (09:41)
[2023-07-24] MEDS: CALCIUM ACETATE 667 MG TAB PO SCH ×2 (09:41→17:24)
[2023-07-24] MEDS: METOPROLOL TARTRATE 12.5 MG TAB PO SCH ×2 (09:41→20:32)
[2023-07-24] MEDS: AMIODARONE 200 MG TAB PO SCH ×2 (09:41→20:32)
[2023-07-24] MEDS: allopurinoL 100 MG TAB PO SCH ×2 (09:41→20:32)
[2023-07-24] MEDS: CHOLECALCIFEROL 25 MCG (1000 IU) TABLET PO SCH (09:41)
[2023-07-24] MEDS: PANTOPRAZOLE 40 MG/10 ML VIAL IV SCH (09:41)
[2023-07-24] MEDS: FERROUS SULFATE 325 MG TAB PO SCH (09:41)
[2023-07-24] MEDS ORDERED: POTASSIUM CHLORIDE ER 20 MEQ TAB.ER PO STA (11:09)
--- NOTE | 2023-07-24 11:18 | P.PN ---
Subjective Progress Note Date: 07/24/23 82-year-old female with history of end-stage renal disease on peritoneal dialysis, atrial fibrillation, presenting with nausea and vomiting and lightheadedness. In the ED, temperature was 99.2, pulse 100, respiratory rate 18, blood pressure down to 83/52, saturating well on room air. White count 19, neutrophilic predominant, sodium 133, potassium 4.2, creatinine 7.4. She was given 2 L of normal saline in the ER. She is admitted for dehydration, nausea, vomiting. Nephrology was consulted. GI consulted for N/V, EGD showed mild antral gastritis and small hiatal hernia. Urinalysis positive for LE, patient started on vancomycin. ID consulted, UCx + Enterobacter, antibiotics switched to Cefepime. CT abdomen and pelvis showed left cortical abscess decrease in size. Urology consulted for possible nephrectomy, recommended IR drainage of abscess. 07/24 Patient was seen and examined. She reports feeling well. She has no complaints. CBC WBC 11.8, Hg 10.9, Hct 33.8. BMP Na 135, K 3.4, BUN 32, Cr 5.37. Mag 1.4. General: nontoxic, no distress, appears at stated age Derm: warm, dry, PD catheter clean, no erythema noted Head: atraumatic, normocephalic, symmetric Eyes: EOMI, no lid lag, anicteric sclera ENT: Nose and ears atraumatic Cardiovascular: S1S2 reg, no murmur, no edema Lungs: clear to auscultation bilateral, no rhonchi, no rales, no wheeze, no accessory muscle use Abdominal: soft, nontender to palpation, no guarding, no appreciable organomegaly Ext: no gross muscle atrophy, muscle strength muscle strength 5 out of 5 in all 4 extremities, no contractures Psych: Alert, oriented, appropriate affect Based on my assessment of this patient, this patient meets a moderate complexity level of care. Patient has acute diagnosis of Enterobacter UTI in the setting of left renal abscess which poses a threat to life or bodily function. Sepsis likely secondary to Enterobacter UTI: BCx negative. Cefepime 1g IV QD. ID on board. Urology recommends IR drainage. Leukocytosis: Related to above. Presyncope Dehydration Mild antral gastritis: IV pantoprazole 40 mg daily. Small hiatal hernia ESRD on peritoneal dialysis: Nephrology on board for PD. Hypokalemia and hypoMag: KCl 20 meq PO x 1. Mag sulfate 2g IV x 1. Chronic: A-Fib, Gout, HDL, h/o TIA. CODE STATUS: FULL CODE DVT Prophylaxis: Heparin SQ GI Prophylaxis: Protonix IV Designated medical POA if patient is not able to make medical decisions for themselves: I have reviewed the following public relations consultant notes: I have reviewed the results of the following tests: CBC, BMP, Mg I have ordered the following tests: I have discussed the care of this patient with the following independent historian: I have independently interpreted the following test below: I have discussed the management of this patient with the following physician: Objective - Vital Signs Vital signs: Vital Signs Temp 97.9 F 07/24/23 08:00 Pulse 76 07/24/23 08:00 Resp 16 07/24/23 08:00 BP 112/76 07/24/23 08:00 Pulse Ox 94 L 07/24/23 08:00 FiO2 Intake & Output 07/23/23 07/24/23 07/24/23 18:59 06:59 18:59 Intake Total 160 720 Balance 160 720 Intake: Intake, IV Titration 600 Amount Sodium Chloride 0.9% 1, 600 000 ml @ 50 mls/hr IV . Q20H [facility] Rx#:[id number] Oral 160 120 Other: Voiding Method Toilet Toilet Bedside Commode Bedside Commode # Voids 0 1 - Labs CBC & Chem 7: 07/24/23 05:22 07/24/23 05:22 Labs: Abnormal Lab Results - Last 24 Hours (Table) 07/24/23 07/24/23 Range/Units 05:22 05:22 WBC 11.8 H (3.8-10.6) k/uL RBC 3.69 L (3.80-5.40) m/uL Hgb 10.9 L (11.4-16.0) gm/dL Hct 33.8 L (34.0-46.0) % RDW 16.2 H (11.5-15.5) % Eosinophils # 1.2 H (0-0.7) k/uL Sodium 135 L (137-145) mmol/L Potassium 3.4 L (3.5-5.1) mmol/L BUN 31 H (7-17) mg/dL Creatinine 5.37 H (0.52-1.04) mg/dL Magnesium 1.4 L (1.6-2.3) mg/dL Microbiology - Last 24 Hours (Table) 07/22/23 13:21 Gram Stain - Preliminary Peritoneal Fluid Body Fluid Culture - Preliminary 07/20/23 15:51 Blood Culture - Preliminary Blood 07/20/23 15:51 Blood Culture - Preliminary Blood
--- NOTE | 2023-07-24 11:42 | P.PN ---
Subjective Patient is seen for follow-up for end-stage renal disease. Currently maintained on peritoneal dialysis. Urine cultures growing Enterobacter Status post CT of the abdomen which showed abscess in the left kidney slightly smaller however this is post-CT drainage of abscess last admission. No significant complaints today. Blood pressure has improved. Status post IV fluids. Objective - Vital Signs Vital signs: Vital Signs Temp 97.9 F 07/24/23 08:00 Pulse 76 07/24/23 08:00 Resp 16 07/24/23 08:00 BP 112/76 07/24/23 08:00 Pulse Ox 94 L 07/24/23 08:00 FiO2 Intake & Output 07/23/23 07/24/23 07/24/23 18:59 06:59 18:59 Intake Total 160 720 Balance 160 720 Intake: Intake, IV Titration 600 Amount Sodium Chloride 0.9% 1, 600 000 ml @ 50 mls/hr IV . Q20H [facility] Rx#:[id number] Oral 160 120 Other: Voiding Method Toilet Toilet Bedside Commode Bedside Commode # Voids 0 1 - Exam Patient is awake, comfortable, alert oriented 3. No acute distress. Examination of the heart S1 and S2 Examination of the lungs bilateral breath sounds are heard Abdomen is soft nontender Examination of lower extremities shows no edema [employer] exam grossly intact - Labs CBC & Chem 7: 07/24/23 05:22 07/24/23 05:22 Labs: Abnormal Lab Results - Last 24 Hours (Table) 07/24/23 07/24/23 Range/Units 05:22 05:22 WBC 11.8 H (3.8-10.6) k/uL RBC 3.69 L (3.80-5.40) m/uL Hgb 10.9 L (11.4-16.0) gm/dL Hct 33.8 L (34.0-46.0) % RDW 16.2 H (11.5-15.5) % Eosinophils # 1.2 H (0-0.7) k/uL Sodium 135 L (137-145) mmol/L Potassium 3.4 L (3.5-5.1) mmol/L BUN 31 H (7-17) mg/dL Creatinine 5.37 H (0.52-1.04) mg/dL Magnesium 1.4 L (1.6-2.3) mg/dL Microbiology - Last 24 Hours (Table) 07/22/23 13:21 Gram Stain - Preliminary Peritoneal Fluid Body Fluid Culture - Preliminary 07/20/23 15:51 Blood Culture - Preliminary Blood 07/20/23 15:51 Blood Culture - Preliminary Blood Assessment and Plan Assessment: 1. End-stage renal disease maintained on peritoneal dialysis. 2. Persistent nausea and vomiting associated with underlying infection, improving with treatment of infection 3. Left renal abscess status post CT drainage in May 2023 and status post IV antibiotics as outpatient. There is consideration for possible need for left nephrectomy due to persistent infection and repeated admissions. Repeat CT shows decrease in size of abscess however this is status post CT-guided drainage on last admission. No current plans for nephrectomy from the urology standpoint as urinary pathogens for different. 4. Hypotension secondary to underlying sepsis 5. CK D mineral bone disorder Plan: Continue antibiotics Continue current PD exchanges
[2023-07-24] MEDS: CEFEPIME 1 GM in SODIUM CHLORIDE 0.9% 50 ML IVPB SCH (13:00)
[2023-07-24] MEDS: MAGNESIUM SULFATE-D5W PMX 1 GM in DEXTROSE/WATER 1 100ML.BAG IVPB SCH ×2 (13:00→15:19)
[2023-07-24] MEDS: SODIUM BICARBONATE TAB 650 MG TAB PO SCH ×2 (13:00→20:32)
[2023-07-24] MEDS: HEPARIN SODIUM,PORCINE 5,000 UNIT/ML 1 ML VIAL SQ SCH (20:32)
[2023-07-24] MEDS: ATORVASTATIN 40 MG TAB PO SCH (20:32)
[2023-07-25] MEDS: DIALYSIS (PERIT 2.5%) 2,500 ML 50 G/2,000 ML BAG INTRAPERIT SCH ×3 (05:24→17:40)
[2023-07-25] MEDS: PANTOPRAZOLE 40 MG/10 ML VIAL IV SCH (08:25)
[2023-07-25] MEDS: HEPARIN SODIUM,PORCINE 5,000 UNIT/ML 1 ML VIAL SQ SCH ×2 (09:00→20:48)
[2023-07-25] MEDS: METOPROLOL TARTRATE 12.5 MG TAB PO SCH ×2 (09:00→20:47)
[2023-07-25] MEDS: SODIUM BICARBONATE TAB 650 MG TAB PO SCH ×2 (09:01→20:47)
[2023-07-25] MEDS: CALCIUM ACETATE 667 MG TAB PO SCH ×2 (09:01→17:40)
[2023-07-25] MEDS: allopurinoL 100 MG TAB PO SCH ×2 (09:01→20:48)
[2023-07-25] MEDS: CHOLECALCIFEROL 25 MCG (1000 IU) TABLET PO SCH (09:01)
[2023-07-25] MEDS: FERROUS SULFATE 325 MG TAB PO SCH (09:01)
[2023-07-25] MEDS: AMIODARONE 200 MG TAB PO SCH ×2 (09:01→20:47)
[2023-07-25] MEDS: ASPIRIN 81 MG PO SCH (09:01)
[2023-07-25] MEDS: CEFEPIME 1 GM in SODIUM CHLORIDE 0.9% 50 ML IVPB SCH (09:49)
[2023-07-25 11:05] LABS: Anisocytosis Slight; HCT 35.6 % (34.0-46.0); HGB 11.4 gm/dL (11.4-16.0); Hypochromasia Slight; MCH 29.4 pg (25.0-35.0); MCV 92.1 fL (80.0-100.0); Mean Platelet Volume 7.8; Platelet Count 334 k/uL (150-450); RBC 3.87 m/uL (3.80-5.40); RDW 16.1 % (11.5-15.5); WBC 11.2 k/uL (3.8-10.6)
[2023-07-25 11:26] LABS: African American GFR (CKD) 9 (>60 ml/min/1.73 sqM); Anion Gap 15 mmol/L; Blood Urea Nitrogen 28 mg/dL (7-17); Carbon Dioxide 23 mmol/L (22-30); Chloride 97 mmol/L (98-107); Glucose 89 mg/dL (74-99); Non-African American GFR(CKD) 7 (>60 ml/min/1.73 sqM); Potassium 3.2 mmol/L (3.5-5.1); Sodium 135 mmol/L (137-145)
--- NOTE | 2023-07-25 11:53 | P.PN ---
Subjective Patient is seen for follow-up for end-stage renal disease. Currently maintained on peritoneal dialysis. Urine cultures growing Enterobacter Status post CT of the abdomen which showed abscess in the left kidney slightly smaller however this is post-CT drainage of abscess last admission. No significant complaints today. Blood pressure has improved. Status post IV fluids. Objective - Vital Signs Vital signs: Vital Signs Temp 97.7 F 07/25/23 07:07 Pulse 74 07/25/23 08:00 Resp 16 07/25/23 08:00 BP 98/65 07/25/23 07:07 Pulse Ox 93 L 07/25/23 07:07 FiO2 Intake & Output 07/24/23 07/25/23 07/25/23 18:59 06:59 18:59 Intake Total 540 Balance 540 Intake: Oral 540 Other: Voiding Method Toilet Toilet Toilet Bedside Commode Bedside Commode Bedside Commode # Voids 3 - Exam Patient is awake, comfortable, alert oriented 3. No acute distress. Examination of the heart S1 and S2 Examination of the lungs bilateral breath sounds are heard Abdomen is soft nontender Examination of lower extremities shows no edema [employer] exam grossly intact - Labs CBC & Chem 7: 07/25/23 10:32 07/25/23 10:32 Labs: Abnormal Lab Results - Last 24 Hours (Table) 07/25/23 07/25/23 Range/Units 10:32 10:32 WBC 11.2 H (3.8-10.6) k/uL RDW 16.1 H (11.5-15.5) % Sodium 135 L (137-145) mmol/L Potassium 3.2 L (3.5-5.1) mmol/L Chloride 97 L (98-107) mmol/L BUN 28 H (7-17) mg/dL Creatinine 5.08 H (0.52-1.04) mg/dL Microbiology - Last 24 Hours (Table) 07/22/23 13:21 Gram Stain - Preliminary Peritoneal Fluid Body Fluid Culture - Preliminary Assessment and Plan Assessment: 1. End-stage renal disease maintained on peritoneal dialysis. 2. Persistent nausea and vomiting associated with underlying infection, improving with treatment of infection 3. Left renal abscess status post CT drainage in May 2023 and status post IV antibiotics as outpatient. There is consideration for possible need for left nephrectomy due to persistent infection and repeated admissions. Repeat CT shows decrease in size of abscess however this is status post CT-guided drainage on last admission. No current plans for nephrectomy from the urology standpoint as urinary pathogens for different. 4. Hypotension secondary to underlying sepsis 5. CK D mineral bone disorder Plan: Continue antibiotics Continue current PD exchanges
--- NOTE | 2023-07-25 12:00 | P.PN ---
Subjective Progress Note Date: 07/25/23 The patient is in the hospital with urinary tract infection with sepsis, polycystic kidney disease, chronic renal failure on peritoneal dialysis. Recent percutaneous drainage of an infected left renal cyst with E. coli. She is feeling better. She is eating somewhat. Her vital signs are stable. She is afebrile. White thousand 11K Objective - Vital Signs Vital signs: Vital Signs Temp 97.7 F 07/25/23 07:07 Pulse 74 07/25/23 08:00 Resp 16 07/25/23 08:00 BP 98/65 07/25/23 07:07 Pulse Ox 93 L 07/25/23 07:07 FiO2 Intake & Output 07/24/23 07/25/23 07/25/23 18:59 06:59 18:59 Intake Total 540 Balance 540 Intake: Oral 540 Other: Voiding Method Toilet Toilet Toilet Bedside Commode Bedside Commode Bedside Commode # Voids 3 - Labs CBC & Chem 7: 07/25/23 10:32 07/25/23 10:32 Labs: Abnormal Lab Results - Last 24 Hours (Table) 07/25/23 07/25/23 Range/Units 10:32 10:32 WBC 11.2 H (3.8-10.6) k/uL RDW 16.1 H (11.5-15.5) % Sodium 135 L (137-145) mmol/L Potassium 3.2 L (3.5-5.1) mmol/L Chloride 97 L (98-107) mmol/L BUN 28 H (7-17) mg/dL Creatinine 5.08 H (0.52-1.04) mg/dL Microbiology - Last 24 Hours (Table) 07/22/23 13:21 Gram Stain - Preliminary Peritoneal Fluid Body Fluid Culture - Preliminary Assessment and Plan Assessment: Impression: Recurrent pyelonephritis, history of infected left renal cyst. APKD with chronic renal failure on peritoneal dialysis. Recommendations: A very lengthy discussion with and then the patient and her . Question is whether a left nephrectomy should be performed. This is a complicated issue for multiple reasons. The bacteria back in the fall was E. coli that is present Enterobacter. This raises a question as to whether the cyst that was infected in April it is truly infected now. The bacteria is different obviously. Computed tomography scan does not show any air and without knowing that she had a previous abscess drainage would be difficult to determine which cyst was infected. If a nephrectomy is done I explained to the patient that there is no guarantee that there aren't infected cyst on the right side. If a nephrectomy is done may destroy her usage of peritoneal dialysis. If a nephrectomy is done there is no guarantee that it would improve her GI tract. She also may still get recurrent bladder infections. My recommendation at this point in time since she clinically looks quite stable and is feeling relatively well is that I would continue on oral antibiotics for now. If she has another episode of sepsis then decision as to whether to do a unilateral bilateral nephrectomy will have to be made let alone perhaps abscess drainage. Most likely if this does recur she would need to be referred to a [facility] for treatment. We will continue to follow. Time with Patient: Greater than 30
[2023-07-25] MEDS ORDERED: POTASSIUM CHLORIDE ER 20 MEQ TAB.ER PO STA (12:01)
--- NOTE | 2023-07-25 12:04 | P.PN ---
Subjective Progress Note Date: 07/25/23 82-year-old female with history of end-stage renal disease on peritoneal dialysis, atrial fibrillation, presenting with nausea and vomiting and lightheadedness. In the ED, temperature was 99.2, pulse 100, respiratory rate 18, blood pressure down to 83/52, saturating well on room air. White count 19, neutrophilic predominant, sodium 133, potassium 4.2, creatinine 7.4. She was given 2 L of normal saline in the ER. She is admitted for dehydration, nausea, vomiting. Nephrology was consulted. GI consulted for N/V, EGD showed mild antral gastritis and small hiatal hernia. Urinalysis positive for LE, patient started on vancomycin. ID consulted, UCx + Enterobacter, antibiotics switched to Cefepime. CT abdomen and pelvis showed left cortical abscess decrease in size. Urology consulted for possible nephrectomy, recommended IR drainage of abscess. 07/24 Patient was seen and examined. She reports feeling well. She has no complaints. CBC WBC 11.8, Hg 10.9, Hct 33.8. BMP Na 135, K 3.4, BUN 32, Cr 5.37. Mag 1.4. 07/25 Patient was seen and examined. One episode of N/V today. No other complaints. CBC WBC 11.2. BMP Na 135, K 3.2, Cl 97, BUN 28, Cr 5.08. Mag 2.0. Urology recommends conservative management at this time, nephrectomy if sepsis reoccurs again. General: nontoxic, no distress, appears at stated age Derm: warm, dry, PD catheter clean, no erythema noted Head: atraumatic, normocephalic, symmetric Eyes: EOMI, no lid lag, anicteric sclera ENT: Nose and ears atraumatic Cardiovascular: S1S2 reg, no murmur, no edema Lungs: clear to auscultation bilateral, no rhonchi, no rales, no wheeze, no accessory muscle use Abdominal: soft, nontender to palpation, no guarding, no appreciable or ganomegaly Ext: no gross muscle atrophy, muscle strength muscle strength 5 out of 5 in all 4 extremities, no contractures Psych: Alert, oriented, appropriate affect Based on my assessment of this patient, this patient meets a moderate complexity level of care. Patient has acute diagnosis of Enterobacter UTI in the setting of left renal abscess which poses a threat to life or bodily function. Sepsis likely secondary to Enterobacter UTI: BCx negative. Cefepime 1g IV QD. ID on board. Urology recommends IR drainage. Leukocytosis: Related to above. Presyncope Dehydration Mild antral gastritis: IV pantoprazole 40 mg daily. Small hiatal hernia ESRD on peritoneal dialysis: Nephrology on board for PD. Hypokalemia and hypoMag: KCl 40 meq PO x 1. Chronic: A-Fib, Gout, HDL, h/o TIA. CODE STATUS: FULL CODE DVT Prophylaxis: Heparin SQ GI Prophylaxis: Protonix IV Designated medical POA if patient is not able to make medical decisions for themselves: I have reviewed the following it infrastructure consultant notes: Nephrology, Urology note. I have reviewed the results of the following tests: CBC, BMP, Mg I have ordered the following tests: BMP I have discussed the care of this patient with the following independent historian: I have independently interpreted the following test below: I have discussed the management of this patient with the following physician: Objective - Vital Signs Vital signs: Vital Signs Temp 97.7 F 07/25/23 07:07 Pulse 74 07/25/23 08:00 Resp 16 07/25/23 08:00 BP 98/65 07/25/23 07:07 Pulse Ox 93 L 07/25/23 07:07 FiO2 Intake & Output 07/24/23 07/25/23 07/25/23 18:59 06:59 18:59 Intake Total 540 Balance 540 Intake: Oral 540 Other: Voiding Method Toilet Toilet Toilet Bedside Commode Bedside Commode Bedside Commode # Voids 3 - Labs CBC & Chem 7: 07/25/23 10:32 07/25/23 10:32 Labs: Abnormal Lab Results - Last 24 Hours (Table) 07/25/23 07/25/23 Range/Units 10:32 10:32 WBC 11.2 H (3.8-10.6) k/uL RDW 16.1 H (11.5-15.5) % Sodium 135 L (137-145) mmol/L Potassium 3.2 L (3.5-5.1) mmol/L Chloride 97 L (98-107) mmol/L BUN 28 H (7-17) mg/dL Creatinine 5.08 H (0.52-1.04) mg/dL Microbiology - Last 24 Hours (Table) 07/22/23 13:21 Gram Stain - Preliminary Peritoneal Fluid Body Fluid Culture - Preliminary
--- NOTE | 2023-07-25 14:44 | P.PN ---
Subjective Progress Note Date: 07/24/23 Principal diagnosis: Reason for follow-up is UTI and concern for left renal abscess Patient is a 82-year female with a past medical history significant for end-stage renal disease on peritoneal dialysis recent admission to the hospital with left renal abscess status post CT-guided drainage culture positive for E. coli for the patient is completed about 6 weeks of antibiotic therapy presenting back to the hospital with intractable nausea and vomiting On today's evaluation that is 07/24/2023 the patient remains to be afebrile patient is breathing comfortably on room air no need for supplemental oxygen but denies any chest pain shortness of breath or cough no further nausea vomiting no abdominal pain or any diarrhea. The patient white count is 11.8, creatinine is 5.37, blood cultures currently pending urine is showing Enterobacter Objective - Vital Signs Vital signs: Vital Signs Temp 97.9 F 07/24/23 08:00 Pulse 76 07/24/23 08:00 Resp 16 07/24/23 08:00 BP 112/76 07/24/23 08:00 Pulse Ox 94 L 07/24/23 08:00 FiO2 Intake & Output 07/23/23 07/24/23 07/24/23 18:59 06:59 18:59 Intake Total 160 720 Balance 160 720 Intake: Intake, IV Titration 600 Amount Sodium Chloride 0.9% 1, 600 000 ml @ 50 mls/hr IV . Q20H [facility] Rx#:[id number] Oral 160 120 Other: Voiding Method Toilet Toilet Bedside Commode Bedside Commode # Voids 0 1 - Exam GENERAL DESCRIPTION: An elderly female lying in bed in no distress RESPIRATORY SYSTEM: Unlabored breathing , decreased breath sounds at bases HEART: S1 S2 regular rate and rhythm , ABDOMEN: Soft , no tenderness EXTREMITIES: No edema feet - Labs CBC & Chem 7: 07/25/23 10:32 07/25/23 10:32 Labs: Abnormal Lab Results - Last 24 Hours (Table) 07/24/23 07/24/23 Range/Units 05:22 05:22 WBC 11.8 H (3.8-10.6) k/uL RBC 3.69 L (3.80-5.40) m/uL Hgb 10.9 L (11.4-16.0) gm/dL Hct 33.8 L (34.0-46.0) % RDW 16.2 H (11.5-15.5) % Eosinophils # 1.2 H (0-0.7) k/uL Sodium 135 L (137-145) mmol/L Potassium 3.4 L (3.5-5.1) mmol/L BUN 31 H (7-17) mg/dL Creatinine 5.37 H (0.52-1.04) mg/dL Magnesium 1.4 L (1.6-2.3) mg/dL Microbiology - Last 24 Hours (Table) 07/22/23 13:21 Gram Stain - Preliminary Peritoneal Fluid Body Fluid Culture - Preliminary 07/20/23 15:51 Blood Culture - Preliminary Blood 07/20/23 15:51 Blood Culture - Preliminary Blood Assessment and Plan (1) Failure of outpatient treatment Current Visit: Yes Status: Acute Code(s): Z78.9 - OTHER SPECIFIED HEALTH STATUS SNOMED Code(s): 475861335 (2) Leukocytosis Current Visit: No Status: Acute Code(s): D72.829 - ELEVATED WHITE BLOOD CELL COUNT, UNSPECIFIED SNOMED Code(s): 702647045 (3) Renal abscess Current Visit: No Status: Acute Code(s): N15.1 - RENAL AND PERINEPHRIC ABSCESS SNOMED Code(s): 7558054 Plan: 1patient presented to hospital with low-grade fever did have significant vomiting patient did have similar presentation last time when she was admitted to hospital and was diagnosed with a left renal abscess in this patient who s/p CT-guided drainage culture did grow E. coli that was sensitive to ceftriaxone and the patient has completed extensive course of IV followed by oral antibiotic therapy now presenting with similar symptoms concerning for likely left renal abscess 2CT abdominal pelvis shows left-sided renal abscess which is slightly decrease d in size 3urology has been consulted and they are recommending IR drainage of this abscess and the fluid should be sent for the culture, Which is currently scheduled for 07/26/2023. 4patient to continue with the cefepime and will monitor clinical course closely multiple questions concern answered Dictation was produced using [employer] software. please excuse any grammatical, word or spelling errors. Time with Patient: Less than 30
--- NOTE | 2023-07-25 14:47 | P.PN ---
Subjective Progress Note Date: 07/25/23 Principal diagnosis: Reason for follow-up is UTI and concern for left renal abscess Patient is a 82-year female with a past medical history significant for end-stage renal disease on peritoneal dialysis recent admission to the hospital with left renal abscess status post CT-guided drainage culture positive for E. coli for the patient is completed about 6 weeks of antibiotic therapy presenting back to the hospital with intractable nausea and vomiting On today's evaluation that is 07/25/2023 the patient denies any fever or any chills patient is breathing comfortably on room air, the patient denies any chest pain shortness of breath or cough patient denies having abdominal pain did have an episode of vomiting this morning no diarrhea The patient white count is slightly down to 11.2 creatinine is 5.08, blood cultures currently pending urine is showing Enterobacter Objective - Vital Signs Vital signs: Vital Signs Temp 98.1 F 07/25/23 12:25 Pulse 71 07/25/23 12:25 Resp 18 07/25/23 12:25 BP 114/69 07/25/23 12:25 Pulse Ox 97 07/25/23 12:25 FiO2 Intake & Output 07/24/23 07/25/23 07/25/23 18:59 06:59 18:59 Intake Total 540 Balance 540 Intake: Oral 540 Other: Voiding Method Toilet Toilet Toilet Bedside Commode Bedside Commode Bedside Commode # Voids 3 - Exam GENERAL DESCRIPTION: An elderly female lying in bed in no distress RESPIRATORY SYSTEM: Unlabored breathing , decreased breath sounds at bases HEART: S1 S2 regular rate and rhythm , ABDOMEN: Soft , no tenderness EXTREMITIES: No edema feet - Labs CBC & Chem 7: 07/25/23 10:32 07/25/23 10:32 Labs: Abnormal Lab Results - Last 24 Hours (Table) 07/25/23 07/25/23 Range/Units 10:32 10:32 WBC 11.2 H (3.8-10.6) k/uL RDW 16.1 H (11.5-15.5) % Sodium 135 L (137-145) mmol/L Potassium 3.2 L (3.5-5.1) mmol/L Chloride 97 L (98-107) mmol/L BUN 28 H (7-17) mg/dL Creatinine 5.08 H (0.52-1.04) mg/dL Microbiology - Last 24 Hours (Table) 07/22/23 13:21 Gram Stain - Preliminary Peritoneal Fluid Body Fluid Culture - Preliminary Assessment and Plan (1) Failure of outpatient treatment Current Visit: Yes Status: Acute Code(s): Z78.9 - OTHER SPECIFIED HEALTH STATUS SNOMED Code(s): 572056506 (2) Leukocytosis Current Visit: No Status: Acute Code(s): D72.829 - ELEVATED WHITE BLOOD CELL COUNT, UNSPECIFIED SNOMED Code(s): 935682754 (3) Renal abscess Current Visit: No Status: Acute Code(s): N15.1 - RENAL AND PERINEPHRIC ABS CESS SNOMED Code(s): 1998655 Plan: 1patient presented to hospital with low-grade fever did have significant vomiting patient did have similar presentation last time when she was admitted to hospital and was diagnosed with a left renal abscess in this patient who s/p CT-guided drainage culture did grow E. coli that was sensitive to ceftriaxone and the patient has completed extensive course of IV followed by oral antibiotic therapy now presenting with similar symptoms concerning for likely left renal abscess 2CT abdominal pelvis shows left-sided renal abscess which is slightly decreased in size 3urology has been consulted and they are recommending IR drainage of this abscess and the fluid should be sent for the culture, Which is currently scheduled for 07/26/2023. 4patient to continue with the cefepime , We will wait for the CT-guided aspiration of the infected left renal cyst and wait for those culture to finalize to determine her discharge antibiotics Multiple questions concern were answered in layman term in the presence of at the bedside Dictation was produced using [employer] dictation software. please excuse any grammatical, word or spelling errors. Time with Patient: Less than 30
[2023-07-25] MEDS: ATORVASTATIN 40 MG TAB PO SCH (20:47)
[2023-07-26] MEDS: DIALYSIS (PERIT 2.5%) 2,500 ML 50 G/2,000 ML BAG INTRAPERIT SCH ×4 (00:22→18:18)
[2023-07-26] MEDS: CEFEPIME 1 GM in SODIUM CHLORIDE 0.9% 50 ML IVPB SCH (08:28)
[2023-07-26] MEDS: PANTOPRAZOLE 40 MG/10 ML VIAL IV SCH (08:29)
[2023-07-26] MEDS: METOPROLOL TARTRATE 12.5 MG TAB PO SCH ×2 (08:30→20:53)
[2023-07-26] MEDS: CALCIUM ACETATE 667 MG TAB PO SCH ×2 (08:30→17:17)
[2023-07-26] MEDS: SODIUM BICARBONATE TAB 650 MG TAB PO SCH ×2 (08:30→20:53)
[2023-07-26] MEDS: AMIODARONE 200 MG TAB PO SCH ×2 (08:30→20:53)
[2023-07-26] MEDS: ASPIRIN 81 MG PO SCH (08:30)
[2023-07-26] MEDS: allopurinoL 100 MG TAB PO SCH ×2 (08:30→20:53)
[2023-07-26] MEDS: FERROUS SULFATE 325 MG TAB PO SCH (08:30)
[2023-07-26] MEDS: CHOLECALCIFEROL 25 MCG (1000 IU) TABLET PO SCH (08:30)
[2023-07-26] MEDS: HEPARIN SODIUM,PORCINE 5,000 UNIT/ML 1 ML VIAL SQ SCH ×2 (08:30→20:53)
[2023-07-26 09:09] LABS: Anisocytosis Slight; HCT 36.5 % (34.0-46.0); HGB 11.3 gm/dL (11.4-16.0); Hypochromasia Slight; MCH 28.8 pg (25.0-35.0); MCHC 31.1 g/dL (31.0-37.0); MCV 92.6 fL (80.0-100.0); Mean Platelet Volume 8.1; Platelet Count 336 k/uL (150-450); RBC 3.94 m/uL (3.80-5.40); RDW 16.1 % (11.5-15.5)
[2023-07-26 11:07] LABS: African American GFR (CKD) 8 (>60 ml/min/1.73 sqM); Anion Gap 17 mmol/L; Blood Urea Nitrogen 25 mg/dL (7-17); Calcium 9.3 mg/dL (8.4-10.2); Carbon Dioxide 20 mmol/L (22-30); Chloride 99 mmol/L (98-107); Glucose 125 mg/dL (74-99); Non-African American GFR(CKD) 7 (>60 ml/min/1.73 sqM); Potassium 3.1 mmol/L (3.5-5.1); Sodium 136 mmol/L (137-145)
--- NOTE | 2023-07-26 12:02 | P.PN ---
Subjective Progress Note Date: 07/26/23 82-year-old female with history of end-stage renal disease on peritoneal dialysis, atrial fibrillation, presenting with nausea and vomiting and lightheadedness. In the ED, temperature was 99.2, pulse 100, respiratory rate 18, blood pressure down to 83/52, saturating well on room air. White count 19, neutrophilic predominant, sodium 133, potassium 4.2, creatinine 7.4. She was given 2 L of normal saline in the ER. She is admitted for dehydration, nausea, vomiting. Nephrology was consulted. GI consulted for N/V, EGD showed mild antral gastritis and small hiatal hernia. Urinalysis positive for LE, patient started on vancomycin. ID consulted, UCx + Enterobacter, antibiotics switched to Cefepime. CT abdomen and pelvis showed left cortical abscess decrease in size. Urology consulted for possible nephrectomy, recommended IR drainage of abscess. 07/24 Patient was seen and examined. She reports feeling well. She has no complaints. CBC WBC 11.8, Hg 10.9, Hct 33.8. BMP Na 135, K 3.4, BUN 32, Cr 5.37. Mag 1.4. 07/25 Patient was seen and examined. One episode of N/V today. No other complaints. CBC WBC 11.2. BMP Na 135, K 3.2, Cl 97, BUN 28, Cr 5.08. Mag 2.0. Urology recommends conservative management at this time, nephrectomy if sepsis reoccurs again. 07/26 Patient was seem and examined. She had an episode of vomiting today after breakfast and morning medications. Frustrated at the length of hospital stay and frequent hospitalizations. IR consulted for aspiration of left renal abscess. CBC WBC 12, Hg 11.3. BMP Na 136, K 3.1, bicarb 20, BUN 25, Cr 5.16, glu 125. General: nontoxic, no distress, appears at stated age Derm: warm, dry, PD catheter clean, no erythema noted Head: atraumatic, normocephalic, symmetric Eyes: EOMI, no lid lag, anicteric sclera ENT: Nose and ears atraumatic Cardiovascular: S1S2 reg, no murmur, no edema Lungs: clear to auscultation bilateral, no rhonchi, no rales, no wheeze, no accessory muscle use Abdominal: soft, nontender to palpation, no guarding, no appreciable organomegaly Ext: no gross muscle atrophy, muscle strength muscle strength 5 out of 5 in all 4 extremities, no contractures Psych: Alert, oriented, appropriate affect Based on my assessment of this patient, this patient meets a moderate complexity level of care. Patient has acute diagnosis of Enterobacter UTI in the setting of left renal abscess which poses a threat to life or bodily function. Sepsis likely secondary to Enterobacter UTI/renal abscess: BCx negative. Cefepime 1g IV QD. ID on board. Eliquis and ASA held for possible IR drainage. Urology recommends IR drainage. Leukocytosis: Related to above. Presyncope Dehydration Mild antral gastritis: IV pantoprazole 40 mg daily. Small hiatal hernia ESRD on peritoneal dialysis: Nephrology on board for PD. Hypokalemia: KCl 40 meq IV x 1. Chronic: A-Fib, Gout, HDL, h/o TIA. CODE STATUS: FULL CODE DVT Prophylaxis: Heparin SQ GI Prophylaxis: Protonix IV Designated medical POA if patient is not able to make medical decisions for themselves: I have reviewed the following otm consultant notes: Nephrology, Urology note. I have reviewed the results of the following tests: CBC, BMP I have ordered the following tests: BMP I have discussed the care of this patient with the following independent historian: I have independently interpreted the following test below: I have discussed the management of this patient with the following physician: Objective - Vital Signs Vital signs: Vital Signs Temp 98.4 F 07/26/23 07:12 Pulse 68 07/26/23 07:12 Resp 16 07/26/23 07:12 BP 102/65 07/26/23 07:12 Pulse Ox 94 L 07/26/23 07:12 FiO2 Intake & Output 07/25/23 07/26/23 07/26/23 18:59 06:59 18:59 Other: Voiding Method Toilet Toilet Bedside Commode Bedside Commode # Voids 1 0 # Bowel Movements 1 - Labs CBC & Chem 7: 07/26/23 08:37 07/26/23 08:37 Labs: Abnormal Lab Results - Last 24 Hours (Table) 07/25/23 07/25/23 07/26/23 Range/Units 10:32 10:32 08:37 WBC 11.2 H 12.0 H (3.8-10.6) k/uL Hgb 11.3 L (11.4-16.0) gm/dL RDW 16.1 H 16.1 H (11.5-15.5) % Sodium 135 L (137-145) mmol/L Potassium 3.2 L (3.5-5.1) mmol/L Chloride 97 L (98-107) mmol/L BUN 28 H (7-17) mg/dL Creatinine 5.08 H (0.52-1.04) mg/dL Microbiology - Last 24 Hours (Table) 07/22/23 13:21 Gram Stain - Final Peritoneal Fluid Body Fluid Culture - Final 07/20/23 15:51 Blood Culture - Final Blood 07/20/23 15:51 Blood Culture - Final Blood
[2023-07-26] MEDS: POTASSIUM CHLORIDE 10 MEQ in WATER FOR INJECTION 1 100ML.BAG IVPB SCH ×4 (13:12→17:16)
[2023-07-26] MEDS: ONDANSETRON 4 MG/2 ML VIAL IVP PRN (13:23)
[2023-07-26] MEDS ORDERED: SODIUM CHLORIDE 0.9% 500 ML 500 ML IV ONE (13:57)
[2023-07-26 13:59] LABS: Glucose,Whole Blood 126 mg/dL (70-110)
[2023-07-26] MEDS: MIDODRINE 5 MG TAB PO PRN (14:04)
--- NOTE | 2023-07-26 15:54 | P.PN ---
Subjective Progress Note Date: 07/26/23 Principal diagnosis: Reason for follow-up is UTI and concern for left renal abscess Patient is a 82-year female with a past medical history significant for end-stage renal disease on peritoneal dialysis recent admission to the hospital with left renal abscess status post CT-guided drainage culture positive for E. coli for the patient is completed about 6 weeks of antibiotic therapy presenting back to the hospital with intractable nausea and vomiting On today's evaluation that is 07/26/2023 the patient remains to be afebrile patient is breathing comfortably on room air patient mention she is slightly frustrated as her CT-guided aspiration was postponed till tomorrow patient denies having any chest pain shortness of breath or cough did have episode of vomiting this morning denies any abdominal pain no diarrhea. Patient did have white count of 12,000 creatinine is 5.16 blood culture negative urine with Enterobacter Objective - Vital Signs Vital signs: Vital Signs Temp 97.6 F 07/26/23 13:29 Pulse 63 07/26/23 13:29 Resp 16 07/26/23 13:29 BP 99/60 07/26/23 13:29 Pulse Ox 89 L 07/26/23 13:29 FiO2 Intake & Output 07/25/23 07/26/23 07/26/23 18:59 06:59 18:59 Other: Voiding Method Toilet Toilet Toilet Bedside Commode Bedside Commode Bedside Commode # Voids 1 0 # Bowel Movements 1 - Exam GENERAL DESCRIPTION: An elderly female lying in bed in no distress RESPIRATORY SYSTEM: Unlabored breathing , decreased breath sounds at bases HEART: S1 S2 regular rate and rhythm , ABDOMEN: Soft , no tenderness EXTREMITIES: No edema feet - Labs CBC & Chem 7: 07/26/23 08:37 07/26/23 08:37 Labs: Abnormal Lab Results - Last 24 Hours (Table) 07/26/23 07/26/23 07/26/23 Range/Units 08:37 08:37 13:49 WBC 12.0 H (3.8-10.6) k/uL Hgb 11.3 L (11.4-16.0) gm/dL RDW 16.1 H (11.5-15.5) % Sodium 136 L (137-145) mmol/L Potassium 3.1 L (3.5-5.1) mmol/L Carbon Dioxide 20 L (22-30) mmol/L BUN 25 H (7-17) mg/dL Creatinine 5.16 H (0.52-1.04) mg/dL Glucose 125 H (74-99) mg/dL POC Glucose (mg/dL) 126 H (70-110) mg/dL Microbiology - Last 24 Hours (Table) 07/22/23 13:21 Gram Stain - Final Peritoneal Fluid Body Fluid Culture - Final 07/20/23 15:51 Blood Culture - Final Blood 07/20/23 15:51 Blood Culture - Final Blood Assessment and Plan (1) Failure of outpatient treatment Current Visit: Yes Status: Acute Code(s): Z78.9 - OTHER SPECIFIED HEALTH STATUS SNOMED Code(s): 360601348 (2) Leukocytosis Current Visit: No Status: Acute Code(s): D72.829 - ELEVATED WHITE BLOOD CELL COUNT, UNSPECIFIED SNOMED Code(s): 005110861 (3) Renal abscess Current Visit: No Status: Acute Code(s): N15.1 - RENAL AND PERINEPHRIC ABSCESS SNOMED Code(s): 2354940 Plan: 1patient presented to hospital with low-grade fever did have significant vomiting patient did have similar presentation last time when she was admitted to hospital and was diagnosed with a left renal abscess in this patient who s/p CT-guided drainage culture did grow E. coli that was sensitive to ceftriaxone and the patient has completed extensive course of IV followed by oral antibiotic therapy now presenting with similar symptoms concerning for likely left renal abscess 2CT abdominal pelvis shows left-sided renal abscess 3urology has been consulted and they are recommending IR drainage of this abscess , Which has been rescheduled for tomorrow as I have was not available today patient seem to be slightly frustrated. 4patient to continue with the cefepime we are waiting for the CT-guided aspiration of the infected renal cyst with a discharge and a biotic on the basis of those culture this was explained to the admitting team if IR is not able to drain that infected cyst patient benefit from transfer to tertiary care Dictation was produced using [employer] dictation software. please excuse any grammatical, word or spelling errors. Time with Patient: Less than 30
[2023-07-26] MEDS: ATORVASTATIN 40 MG TAB PO SCH (20:53)
[2023-07-27] MEDS: DIALYSIS (PERIT 2.5%) 2,500 ML 50 G/2,000 ML BAG INTRAPERIT SCH ×5 (00:38→23:54)
[2023-07-27 07:30] LABS: African American GFR (CKD) 9 (>60 ml/min/1.73 sqM); Anion Gap 11 mmol/L; Blood Urea Nitrogen 23 mg/dL (7-17); Calcium 8.7 mg/dL (8.4-10.2); Carbon Dioxide 24 mmol/L (22-30); Chloride 100 mmol/L (98-107); Glucose 76 mg/dL (74-99); Non-African American GFR(CKD) 8 (>60 ml/min/1.73 sqM); Potassium 3.2 mmol/L (3.5-5.1); Sodium 135 mmol/L (137-145)
[2023-07-27 07:46] LABS: Anisocytosis Slight; HCT 35.2 % (34.0-46.0); Hypochromasia Marked; MCHC 31.2 g/dL (31.0-37.0); MCV 96.2 fL (80.0-100.0); Mean Platelet Volume 7.7; Platelet Count 297 k/uL (150-450); RBC 3.66 m/uL (3.80-5.40); RDW 16.1 % (11.5-15.5); WBC 10.1 k/uL (3.8-10.6)
[2023-07-27] MEDS: CHOLECALCIFEROL 25 MCG (1000 IU) TABLET PO SCH (08:48)
[2023-07-27] MEDS: CALCIUM ACETATE 667 MG TAB PO SCH ×2 (08:48→17:44)
[2023-07-27] MEDS: allopurinoL 100 MG TAB PO SCH ×2 (08:48→20:45)
[2023-07-27] MEDS: FERROUS SULFATE 325 MG TAB PO SCH (08:48)
[2023-07-27] MEDS: SODIUM BICARBONATE TAB 650 MG TAB PO SCH ×2 (08:48→20:45)
[2023-07-27] MEDS: PANTOPRAZOLE 40 MG/10 ML VIAL IV SCH (08:49)
[2023-07-27] MEDS: HEPARIN SODIUM,PORCINE 5,000 UNIT/ML 1 ML VIAL SQ SCH ×2 (08:49→11:41)
[2023-07-27] MEDS: AMIODARONE 200 MG TAB PO SCH ×2 (08:49→20:45)
[2023-07-27] MEDS: METOPROLOL TARTRATE 12.5 MG TAB PO SCH ×2 (08:50→20:45)
[2023-07-27] MEDS: CEFEPIME 1 GM in SODIUM CHLORIDE 0.9% 50 ML IVPB SCH (08:54)
--- NOTE | 2023-07-27 11:44 | P.PN ---
Subjective Patient is seen for follow-up for end-stage renal disease. Currently maintained on peritoneal dialysis. Urine cultures growing Enterobacter Status post CT of the abdomen which showed abscess in the left kidney slightly smaller however this is post-CT drainage of abscess last admission. Continues to have nausea and vomiting on and off. Blood pressure dropped yesterday and patient received fluid bolus with improvement in blood pressure subsequently. Objective - Vital Signs Vital signs: Vital Signs Temp 97.4 F L 07/27/23 07:09 Pulse 50 L 07/27/23 07:09 Resp 16 07/27/23 07:09 BP 113/70 07/27/23 07:09 Pulse Ox 94 L 07/27/23 06:40 FiO2 Intake & Output 07/26/23 07/27/23 07/27/23 18:59 06:59 18:59 Intake Total 480 Balance 480 Intake: Oral 480 Other: Voiding Method Toilet Toilet Bedside Commode Bedside Commode # Voids 1 # Bowel Movements 1 - Exam Patient is awake, comfortable, alert oriented 3. No acute distress. 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 End-stage renal disease maintained on peritoneal dialysis. 2. Persistent nausea and vomiting associated with underlying infection, improving with treatment of infection 3. Left renal abscess status post CT drainage in May 2023 and status post IV antibiotics as outpatient. There is consideration for possible need for left nephrectomy due to persistent infection and repeated admissions. Repeat CT shows decrease in size of abscess however this is status post CT-guided drainage on last admission. No current plans for nephrectomy from the urology standpoint as urinary pathogens for different. 4. Hypotension secondary to underlying sepsis 5. CK D mineral bone disorder Plan: Continue antibiotics Continue current PD exchanges Add gentle IV hydration.
[2023-07-27] MEDS ORDERED: SODIUM CHLORIDE 0.9% 1,000 ML IV SCH (11:45)
--- NOTE | 2023-07-27 11:47 | P.PN ---
Subjective Patient is seen for follow-up for end-stage renal disease. Currently maintained on peritoneal dialysis. Urine cultures growing Enterobacter Status post CT of the abdomen which showed abscess in the left kidney slightly smaller however this is post-CT drainage of abscess last admission. Continues to have nausea and vomiting on and off. Family is present at bedside and they have multiple questions regarding care and plans. Objective - Vital Signs Vital signs: Vital Signs Temp 97.4 F L 07/27/23 07:09 Pulse 50 L 07/27/23 07:09 Resp 16 07/27/23 07:09 BP 113/70 07/27/23 07:09 Pulse Ox 94 L 07/27/23 06:40 FiO2 Intake & Output 07/26/23 07/27/23 07/27/23 18:59 06:59 18:59 Intake Total 480 Balance 480 Intake: Oral 480 Other: Voiding Method Toilet Toilet Bedside Commode Bedside Commode # Voids 1 # Bowel Movements 1 - Exam Patient is awake, comfortable, alert oriented 3. No acute distress. 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 End-stage renal disease maintained on peritoneal dialysis. 2. Persistent nausea and vomiting associated with underlying infection, improving with treatment of infection 3. Left renal abscess status post CT drainage in May 2023 and status post IV antibiotics as outpatient. There is consideration for possible need for left nephrectomy due to persistent infection and repeated admissions. Repeat CT shows decrease in size of abscess however this is status post CT-guided drainage on last admission. No current plans for nephrectomy from the urology standpoint as urinary pathogens for different. 4. Hypotension secondary to underlying sepsis 5. CK D mineral bone disorder Plan: Discussed with patient's family regarding options including continuation of antibiotics and perhaps seek second opinion of for urology post discharge. Patient's general condition is not going to meet required to transfer to a tertiary care facility and this time. Continue with antibiotics Possible drainage of abscess by interventional radiology.
[2023-07-27] MEDS ORDERED: POTASSIUM CHLORIDE ER 20 MEQ TAB.ER PO STA (11:50)
[2023-07-27] MEDS ORDERED: CALCIUM CARBONATE 500 MG CHEWABLE PO PRN (11:53)
--- NOTE | 2023-07-27 11:55 | P.PN ---
Subjective Progress Note Date: 07/27/23 82-year-old female with history of end-stage renal disease on peritoneal dialysis, atrial fibrillation, presenting with nausea and vomiting and lightheadedness. In the ED, temperature was 99.2, pulse 100, respiratory rate 18, blood pressure down to 83/52, saturating well on room air. White count 19, neutrophilic predominant, sodium 133, potassium 4.2, creatinine 7.4. She was given 2 L of normal saline in the ER. She is admitted for dehydration, nausea, vomiting. Nephrology was consulted. GI consulted for N/V, EGD showed mild antral gastritis and small hiatal hernia. Urinalysis positive for LE, patient started on vancomycin. ID consulted, UCx + Enterobacter, antibiotics switched to Cefepime. CT abdomen and pelvis showed left cortical abscess decrease in size. Urology consulted for possible nephrectomy, recommended IR drainage of abscess. 07/24 Patient was seen and examined. She reports feeling well. She has no complaints. CBC WBC 11.8, Hg 10.9, Hct 33.8. BMP Na 135, K 3.4, BUN 32, Cr 5.37. Mag 1.4. 07/25 Patient was seen and examined. One episode of N/V today. No other complaints. CBC WBC 11.2. BMP Na 135, K 3.2, Cl 97, BUN 28, Cr 5.08. Mag 2.0. Urology recommends conservative management at this time, nephrectomy if sepsis reoccurs again. 07/26 Patient was seem and examined. She had an episode of vomiting today after breakfast and morning medications. Frustrated at the length of hospital stay and frequent hospitalizations. IR consulted for aspiration of left renal abscess. CBC WBC 12, Hg 11.3. BMP Na 136, K 3.1, bicarb 20, BUN 25, Cr 5.16, glu 125. A-team called for lightheadedness and hypotension during PD. Patient placed on trendelenburg position and bolused 1L NS. Given Midodine. BP improved. Dizziness improving. Discussed with multiple family members. We are awaiting IR decision for left kidney cyst aspiration. Options presented including conservative management with aspiration and course of IV antibiotics with outpatient Urology referral. The other option is transferring the patient inpatient for surgical evaluation. Family prefers the first option. We will continue to update Adama Brewer (cell: [phone]) on the plan. 07/27 Patient was seen and examined. She had an episode of vomiting today after breakfast and morning medications. IR to evaluate for aspiration and drainage of left renal abscess. CBC Hg 11. BMP Na 135, K 3.2, BUN 23, Cr 4.92. General: nontoxic, no distress, appears at stated age Derm: warm, dry, PD catheter clean, no erythema noted Head: atraumatic, normocephalic, symmetric Eyes: EOMI, no lid lag, anicteric sclera ENT: Nose and ears atraumatic Cardiovascular: S1S2 reg, no murmur, no edema Lungs: clear to auscultation bilateral, no rhonchi, no rales, no wheeze, no accessory muscle use Abdominal: soft, nontender to palpation, no guarding, no appreciable organomegaly Ext: no gross muscle atrophy, muscle strength muscle strength 5 out of 5 in all 4 extremities, no contractures Psych: Alert, oriented, appropriate affect Based on my assessment of this patient, this patient meets a moderate complexity level of care. Patient has acute diagnosis of Enterobacter UTI in the setting of left renal abscess which poses a threat to life or bodily function. Sepsis likely secondary to Enterobacter UTI/renal abscess: BCx negative. Cefepime 1g IV QD. ID on board. Eliquis and ASA held for possible IR drainage. Urology recommends IR drainage. Presyncope Dehydration Mild antral gastritis: IV pantoprazole 40 mg daily. Tums 1000 mg PO QID PRN N/V. Small hiatal hernia ESRD on peritoneal dialysis: Nephrology on board for PD. Hypokalemia: KCl 40 meq PO x 1. Chronic: A-Fib, Gout, HDL, h/o TIA. Resolved: Leukocytosis CODE STATUS: FULL CODE DVT Prophylaxis: Heparin SQ GI Prophylaxis: Protonix IV Designated medical POA if patient is not able to make medical decisions for themselves: I have reviewed the following benefits sales consultant notes: Nephrology, ID note. I have reviewed the results of the following tests: CBC, BMP I have ordered the following tests: I have discussed the care of this patient with the following independent historian: Discussed with RN. I have independently interpreted the following test below: I have discussed the management of this patient with the following physician: Discussed with Dr. Dobbs. Objective - Vital Signs Vital signs: Vital Signs Temp 97.4 F L 07/27/23 07:09 Pulse 50 L 07/27/23 07:09 Resp 16 07/27/23 07:09 BP 113/70 07/27/23 07:09 Pulse Ox 94 L 07/27/23 06:40 FiO2 Intake & Output 07/26/23 07/27/23 07/27/23 18:59 06:59 18:59 Intake Total 480 Balance 480 Intake: Oral 480 Other: Voiding Method Toilet Toilet Bedside Commode Bedside Commode # Voids 1 # Bowel Movements 1 - Labs CBC & Chem 7: 07/27/23 06:15 07/27/23 06:15 Labs: Abnormal Lab Results - Last 24 Hours (Table) 07/26/23 07/27/23 07/27/23 Range/Units 13:49 06:15 06:15 RBC 3.66 L (3.80-5.40) m/uL Hgb 11.0 L (11.4-16.0) gm/dL RDW 16.1 H (11.5-15.5) % Sodium 135 L (137-145) mmol/L Potassium 3.2 L (3.5-5.1) mmol/L BUN 23 H (7-17) mg/dL Creatinine 4.92 H (0.52-1.04) mg/dL POC Glucose (mg/dL) 126 H (70-110) mg/dL Microbiology - Last 24 Hours (Table) 07/22/23 13:21 Gram Stain - Final Peritoneal Fluid Body Fluid Culture - Final
[2023-07-27] MEDS: ONDANSETRON 4 MG/2 ML VIAL IVP PRN (13:06)
[2023-07-27 13:29] LABS: Prothrombin Time 11.4 sec (10.0-12.5)
[2023-07-27] MEDS ORDERED: LEVOFLOXACIN 750 MG TAB PO ONE (15:00)
[2023-07-27] MEDS ORDERED: TRIMETHOBENZAMIDE 100 MG/ML 2 ML VIAL IM PRN (16:21)
--- NOTE | 2023-07-27 16:46 | P.PN ---
Subjective Progress Note Date: 07/27/23 the patient is in the hospital with a tui wi sepsis due to klebsiella. SHe had a infected renal cyst, left drained several months ago that grew e coli. The cyst is decreased in size and and there is no air in it. Her wbc is down to 10 k. SHe has crf. Objective - Vital Signs Vital signs: Vital Signs Temp 97.7 F 07/27/23 14:00 Pulse 68 07/27/23 14:00 Resp 18 07/27/23 14:00 BP 95/69 07/27/23 14:29 Pulse Ox 93 L 07/27/23 14:00 FiO2 Intake & Output 07/26/23 07/27/23 07/27/23 18:59 06:59 18:59 Intake Total 480 Balance 480 Intake: Oral 480 Other: Voiding Method Toilet Toilet Bedside Commode Bedside Commode # Voids 1 1 # Bowel Movements 1 - Labs CBC & Chem 7: 07/27/23 06:15 07/27/23 06:15 Labs: Abnormal Lab Results - Last 24 Hours (Table) 07/27/23 07/27/23 Range/Units 06:15 06:15 RBC 3.66 L (3.80-5.40) m/uL Hgb 11.0 L (11.4-16.0) gm/dL RDW 16.1 H (11.5-15.5) % Sodium 135 L (137-145) mmol/L Potassium 3.2 L (3.5-5.1) mmol/L BUN 23 H (7-17) mg/dL Creatinine 4.92 H (0.52-1.04) mg/dL Assessment and Plan Assessment: Impression CRf. Uti w sepsis[ enterobacter]. 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 Previously infected left renal cyst with e coli Plan ID has ordered a repeat aspiration of the previously infected cyst. They were questioning whether a left nephrectomy should be done. Unless the cyst grows enterobacter its probable that the infection previously is unrelated to the present admission. A nephrectomy would be challenging. the question then a rises whether she should have bilateral nephrectomies. It may also alter her ability to continue with capd. We will see what the aspiration shows but clinically she is stable and a nephrectomy is not an emergency
[2023-07-27] MEDS: SODIUM CHLORIDE 0.9% 1,000 ML IV SCH (20:42)
[2023-07-27] MEDS: ATORVASTATIN 40 MG TAB PO SCH (20:45)
[2023-07-27] MEDS: MIDODRINE 5 MG TAB PO PRN (20:45)
[2023-07-27] MEDS: ACETAMINOPHEN TAB 325 MG TAB PO PRN (22:57)
[2023-07-28] MEDS: DIALYSIS (PERIT 2.5%) 2,500 ML 50 G/2,000 ML BAG INTRAPERIT SCH ×4 (05:39→23:47)
[2023-07-28 06:13] LABS: Anisocytosis Slight; HGB 10.4 gm/dL (11.4-16.0); Hypochromasia Slight; MCH 29.1 pg (25.0-35.0); MCHC 31.6 g/dL (31.0-37.0); MCV 92.1 fL (80.0-100.0); Mean Platelet Volume 7.6; Platelet Count 343 k/uL (150-450); RBC 3.58 m/uL (3.80-5.40); RDW 16.2 % (11.5-15.5); WBC 9.7 k/uL (3.8-10.6)
[2023-07-28 06:39] LABS: African American GFR (CKD) 9 (>60 ml/min/1.73 sqM); Anion Gap 10 mmol/L; Blood Urea Nitrogen 23 mg/dL (7-17); Calcium 8.9 mg/dL (8.4-10.2); Carbon Dioxide 25 mmol/L (22-30); Chloride 101 mmol/L (98-107); Glucose 81 mg/dL (74-99); Non-African American GFR(CKD) 8 (>60 ml/min/1.73 sqM); Potassium 3.5 mmol/L (3.5-5.1); Sodium 136 mmol/L (137-145)
[2023-07-28] MEDS: ONDANSETRON 4 MG/2 ML VIAL IVP PRN ×2 (08:20→15:26)
[2023-07-28] MEDS: CEFEPIME 1 GM in SODIUM CHLORIDE 0.9% 50 ML IVPB SCH (08:21)
[2023-07-28] MEDS: PANTOPRAZOLE 40 MG/10 ML VIAL IV SCH (08:24)
[2023-07-28] MEDS: HEPARIN SODIUM,PORCINE 5,000 UNIT/ML 1 ML VIAL SQ SCH ×2 (08:26→21:08)
[2023-07-28] MEDS: CHOLECALCIFEROL 25 MCG (1000 IU) TABLET PO SCH (08:26)
[2023-07-28] MEDS: allopurinoL 100 MG TAB PO SCH ×2 (08:26→21:08)
[2023-07-28] MEDS: AMIODARONE 200 MG TAB PO SCH ×2 (08:26→21:08)
[2023-07-28] MEDS: METOPROLOL TARTRATE 12.5 MG TAB PO SCH ×2 (08:26→21:08)
[2023-07-28] MEDS: FERROUS SULFATE 325 MG TAB PO SCH (08:26)
[2023-07-28] MEDS: SODIUM BICARBONATE TAB 650 MG TAB PO SCH ×2 (08:26→21:08)
[2023-07-28] MEDS: CALCIUM ACETATE 667 MG TAB PO SCH ×2 (08:26→18:01)
[2023-07-28] MEDS: MIDODRINE 5 MG TAB PO SCH ×3 (08:26→18:01)
[2023-07-28] MEDS: SODIUM CHLORIDE 0.9% 1,000 ML IV SCH ×2 (12:08→21:08)
[2023-07-28 12:15] VITALS: BMI 28.3
--- NOTE | 2023-07-28 13:46 | P.PN ---
Subjective Patient is seen for follow-up for end-stage renal disease. Currently maintained on peritoneal dialysis. Urine cultures growing Enterobacter Status post CT of the abdomen which showed abscess in the left kidney slightly smaller however this is post-CT drainage of abscess last admission. There are plans to drain the abscess again however patient needs to be off of aspirin for 7 days. Continues to have nausea and vomiting on and off. Family is present at bedside and they have multiple questions regarding care and plans. Blood pressure has been low over the last couple of days. Patient has been started on IV fluids and also maintained on midodrine. Currently maintained on 1.5% exchanges every 6 hours. UF of about 200-300 with each exchange. Objective - Vital Signs Vital signs: Vital Signs Temp 98.1 F 07/28/23 11:58 Pulse 59 L 07/28/23 07:11 Resp 16 07/28/23 11:58 BP 141/83 07/28/23 11:58 Pulse Ox 95 07/28/23 07:11 FiO2 Intake & Output 07/27/23 07/28/23 07/28/23 18:59 06:59 18:59 Intake Total 460 Output Total 1 Balance 460 -1 Weight 74.843 kg Intake: Oral 460 Output: Emesis 1 Other: Voiding Method Toilet Toilet Bedside Commode Bedside Commode # Voids 1 2 - Exam Patient is awake, comfortable, alert oriented 3. No acute distress. 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 End-stage renal disease maintained on peritoneal dialysis. 2. Persistent nausea and vomiting associated with underlying infection, impro ving with treatment of infection 3. Left renal abscess status post CT drainage in May 2023 and status post IV antibiotics as outpatient. There is consideration for possible need for left nephrectomy due to persistent infection and repeated admissions. Repeat CT shows decrease in size of abscess however this is status post CT-guided drainage on last admission. No current plans for nephrectomy from the urology standpoint as urinary pathogens for different. 4. Hypotension secondary to underlying sepsis 5. CK D mineral bone disorder 6. Hypotension associated with underlying infection. Started on IV fluids and also started on midodrine which we will continue. Plan: Discussed with patient's family regarding options including continuation of antibiotics and perhaps seek second opinion of for urology post discharge. Patient's general condition is not going to meet requirement for transfer to a tertiary care facility at this time. Continue with antibiotics Possible drainage of abscess by interventional radiology. Also discussed with possibly switching to hemodialysis if patient is discharged to rehab.
--- NOTE | 2023-07-28 14:31 | P.PN ---
Subjective Progress Note Date: 07/28/23 82-year-old female with history of end-stage renal disease on peritoneal dialysis, atrial fibrillation, presenting with nausea and vomiting and lightheadedness. In the ED, temperature was 99.2, pulse 100, respiratory rate 18, blood pressure down to 83/52, saturating well on room air. White count 19, neutrophilic predominant, sodium 133, potassium 4.2, creatinine 7.4. She was given 2 L of normal saline in the ER. She is admitted for dehydration, nausea, vomiting. Nephrology was consulted. GI consulted for N/V, EGD showed mild antral gastritis and small hiatal hernia. Urinalysis positive for LE, patient started on vancomycin. ID consulted, UCx + Enterobacter, antibiotics switched to Cefepime. CT abdomen and pelvis showed left cortical abscess decrease in size. Urology consulted for possible nephrectomy, recommended IR drainage of abscess. 07/24 Patient was seen and examined. She reports feeling well. She has no complaints. CBC WBC 11.8, Hg 10.9, Hct 33.8. BMP Na 135, K 3.4, BUN 32, Cr 5.37. Mag 1.4. 07/25 Patient was seen and examined. One episode of N/V today. No other complaints. CBC WBC 11.2. BMP Na 135, K 3.2, Cl 97, BUN 28, Cr 5.08. Mag 2.0. Urology recommends conservative management at this time, nephrectomy if sepsis reoccurs again. 07/26 Patient was seem and examined. She had an episode of vomiting today after breakfast and morning medications. Frustrated at the length of hospital stay and frequent hospitalizations. IR consulted for aspiration of left renal abscess. CBC WBC 12, Hg 11.3. BMP Na 136, K 3.1, bicarb 20, BUN 25, Cr 5.16, glu 125. A-team called for lightheadedness and hypotension during PD. Patient placed on trendelenburg position and bolused 1L NS. Given Midodine. BP improved. Dizziness improving. Discussed with multiple family members. We are awaiting IR decision for left kidney cyst aspiration. Options presented including conservative management with aspiration and course of IV antibiotics with outpatient Urology referral. The other option is transferring the patient inpatient for surgical evaluation. Family prefers the first option. We will continue to update Adama Brewer (cell: [phone]) on the plan. 07/27 Patient was seen and examined. She had an episode of vomiting today after breakfast and morning medications. IR to evaluate for aspiration and drainage of left renal abscess. CBC Hg 11. BMP Na 135, K 3.2, BUN 23, Cr 4.92. Case discussed with family extensively at bedside. They have multiple complaints. Patient has not had a shower in the last couple of days (due to hypotensive episodes during PD). No one had informed them of the findings of antral gastritis after EGD. She continues to have nausea and vomiting with most meal intake. Patient had not been seen by PT today. Too much fluid being taken out during PD leading to severe hypotensive episodes. Frustrated about the delay of care (IR drainage of the left renal abscess - needs to be off ASA for 6 days). They are requesting transfer for higher level of care ([facility] or [facility]). 07/28 Patient was seen and examined. She was able to tolerate the Ensure shake but vomited the banana this morning. With regard to the discussion with the family yesterday, there was consideration given to transferring the patient to a tertiary center. I discussed this possibility with the family member at bedside today. He feels patient is too weak for surgery and would probably benefit from SNF and outpatient Urology referral. IR is unable to do the drainage of the left renal abscess until the patient is off ASA for 6 days (she has already been off Eliquis). The earliest she can get the IR drainage is Aug 02. Even if a transfer is initiated, she would most likely have to wait until Tuesday. Patient has decided to stay at [facility] and wait until Tuesday. She will also need to convert to HD if the plan is to go to SNF. The plan was discussed with Dr. Dobbs. CBC Hg 10.4 Hct 33. BMP Na 136, BUN 23, Cr 5.03. General: nontoxic, no distress, appears at stated age Derm: warm, dry, PD catheter clean, no erythema noted Head: atraumatic, normocephalic, symmetric Eyes: EOMI, no lid lag, anicteric sclera ENT: Nose and ears atraumatic Cardiovascular: S1S2 reg, no murmur, no edema Lungs: clear to auscultation bilateral, no rhonchi, no rales, no wheeze, no accessory muscle use Abdominal: soft, nontender to palpation, no guarding, no appreciable organomegaly Ext: no gross muscle atrophy, muscle strength muscle strength 5 out of 5 in all 4 extremities, no contractures Psych: Alert, oriented, appropriate affect Based on my assessment of this patient, this patient meets a moderate complexity level of care. Patient has acute diagnosis of Enterobacter UTI in the setting of left renal abscess which poses a threat to life or bodily function. Sepsis likely secondary to Enterobacter UTI/renal abscess: BCx negative. Cefepime 1g IV QD. ID on board. Eliquis and ASA held for possible IR drainage on Tuesday. Urology recommends IR drainage and avoiding surgery for now. Presyncope: Midodrine 5 mg PO TID scheduled and 10 mg PO TID PRN for SBP < 110. Mild antral gastritis: IV pantoprazole 40 mg daily. Tums 1000 mg PO QID PRN N/V. Added Compazine 10 mg IV Q6H PRN. Small hiatal hernia ESRD on peritoneal dialysis: Nephrology on board for PD. Will need to convert to HD if plan is for SNF. Chronic: A-Fib, Gout, HDL, h/o TIA Resolved: Leukocytosis, HypoK CODE STATUS: FULL CODE DVT Prophylaxis: Heparin SQ GI Prophylaxis: Protonix IV Designated medical POA if patient is not able to make medical decisions for themselves: I have reviewed the following retirement consultant notes: Nephrology, Urology, ID note. I have reviewed the results of the following tests: CBC, BMP I have ordered the following tests: CBC, BMP I have discussed the care of this patient with the following independent historian: Discussed with RN. Discussed with Family member. I have independently interpreted the following test below: I have discussed the management of this patient with the following physician: Discussed with Dr. Dobbs. Objective - Vital Signs Vital signs: Vital Signs Temp 98.1 F 07/28/23 11:58 Pulse 59 L 07/28/23 07:11 Resp 16 07/28/23 11:58 BP 141/83 07/28/23 11:58 Pulse Ox 95 07/28/23 07:11 FiO2 Intake & Output 07/27/23 07/28/23 07/28/23 18:59 06:59 18:59 Intake Total 460 Output Total 1 Balance 460 -1 Weight 74.843 kg Intake: Oral 460 Output: Emesis 1 Other: Voiding Method Toilet Toilet Bedside Commode Bedside Commode # Voids 1 2 1 - Labs CBC & Chem 7: 07/28/23 05:27 07/28/23 05:27 Labs: Abnormal Lab Results - Last 24 Hours (Table) 07/28/23 07/28/23 Range/Units 05:27 05:27 RBC 3.58 L (3.80-5.40) m/uL Hgb 10.4 L (11.4-16.0) gm/dL Hct 33.0 L (34.0-46.0) % RDW 16.2 H (11.5-15.5) % Sodium 136 L (137-145) mmol/L BUN 23 H (7-17) mg/dL Creatinine 5.03 H (0.52-1.04) mg/dL
--- NOTE | 2023-07-28 16:06 | P.PN ---
Subjective Progress Note Date: 07/27/23 Principal diagnosis: Reason for follow-up is UTI and concern for left renal abscess Patient is a 82-year female with a past medical history significant for end-stage renal disease on peritoneal dialysis recent admission to the hospital with left renal abscess status post CT-guided drainage culture positive for E. coli for the patient is completed about 6 weeks of antibiotic therapy presenting back to the hospital with intractable nausea and vomiting On today's evaluation that is 07/27/2023 the patient continues to be afebrile patient is breathing comfortably on room air patient denies having any chest pain shortness of breath or cough, the patient denies having any abdominal pain or diarrhea did have a bowel movement still complaining of unable to keep anythi ng down. Patient did have white count has normalized to 10.1, creatinine is 4.92 blood culture negative urine with Enterobacter Objective - Vital Signs Vital signs: Vital Signs Temp 97.7 F 07/27/23 14:00 Pulse 68 07/27/23 14:00 Resp 18 07/27/23 14:00 BP 95/69 07/27/23 14:29 Pulse Ox 93 L 07/27/23 14:00 FiO2 Intake & Output 07/26/23 07/27/23 07/27/23 18:59 06:59 18:59 Intake Total 480 Balance 480 Intake: Oral 480 Other: Voiding Method Toilet Toilet Bedside Commode Bedside Commode # Voids 1 1 # Bowel Movements 1 - Exam GENERAL DESCRIPTION: An elderly female lying in bed in no distress RESPIRATORY SYSTEM: Unlabored breathing , decreased breath sounds at bases HEART: S1 S2 regular rate and rhythm , ABDOMEN: Soft , no tenderness EXTREMITIES: No edema feet - Labs CBC & Chem 7: 07/28/23 05:27 07/28/23 05:27 Labs: Abnormal Lab Results - Last 24 Hours (Table) 07/27/23 07/27/23 Range/Units 06:15 06:15 RBC 3.66 L (3.80-5.40) m/uL Hgb 11.0 L (11.4-16.0) gm/dL RDW 16.1 H (11.5-15.5) % Sodium 135 L (137-145) mmol/L Potassium 3.2 L (3.5-5.1) mmol/L BUN 23 H (7-17) mg/dL Creatinine 4.92 H (0.52-1.04) mg/dL Assessment and Plan (1) Failure of outpatient treatment Current Visit: Yes Status: Acute Code(s): Z78.9 - OTHER SPECIFIED HEALTH STATUS SNOMED Code(s): 109347972 (2) Leukocytosis Current Visit: No Status: Acute Code(s): D72.829 - ELEVATED WHITE BLOOD CELL COUNT, UNSPECIFIED SNOMED Code(s): 779821065 (3) Renal abscess Current Visit: No Status: Acute Code(s): N15.1 - RENAL AND PERINEPHRIC ABSCESS SNOMED Code(s): 4810821 Plan: 1patient presented to hospital with low-grade fever did have significant vomiting patient did have similar presentation last time when she was admitted to hospital and was diagnosed with a left renal abscess in this patient who s/p CT-guided drainage culture did grow E. coli that was sensitive to ceftriaxone and the patient has completed extensive course of IV followed by oral antibiotic therapy now presenting with similar symptoms concerning for likely left renal abscess 2CT abdominal pelvis shows left-sided renal abscess 3urology has been consulted and they are recommending IR drainage of this abscess , Patient is currently waiting for drainage of the infected cyst by IR. 4patient remains to be afebrile the patient white count is normalized we will keep the patient on cefepime with a discharge and hepatic on the basis of the culture that will be taken at the time of drainage of the infected cyst this was discussed with the family and admitting team Dictation was produced using [employer] dictation software. please excuse any grammatical, word or spelling errors. Time with Patient: Less than 30
--- NOTE | 2023-07-28 16:08 | P.PN ---
Subjective Progress Note Date: 07/28/23 Principal diagnosis: Reason for follow-up is UTI and concern for left renal abscess Patient is a 82-year female with a past medical history significant for end-stage renal disease on peritoneal dialysis recent admission to the hospital with left renal abscess status post CT-guided drainage culture positive for E. coli for the patient is completed about 6 weeks of antibiotic therapy presenting back to the hospital with intractable nausea and vomiting On today's evaluation that is 07/28/2023 the patient remains to be afebrile patient is breathing comfortably on room air without need for supplemental oxygen patient denies having any chest pain shortness of breath or cough, the patient is still complaining of unable to keep anything down, however the patient denies having any abdominal pain and did have bowel movement Patient did have white count remains to be normal at 9.7, creatinine is 5.03 blood culture negative urine with Enterobacter Objective - Vital Signs Vital signs: Vital Signs Temp 98.1 F 07/28/23 11:58 Pulse 59 L 07/28/23 07:11 Resp 16 07/28/23 11:58 BP 141/83 07/28/23 11:58 Pulse Ox 95 07/28/23 07:11 FiO2 Intake & Output 07/27/23 07/28/23 07/28/23 18:59 06:59 18:59 Intake Total 460 Output Total 1 Balance 460 -1 Weight 74.843 kg Intake: Oral 460 Output: Emesis 1 Other: Voiding Method Toilet Toilet Bedside Commode Bedside Commode # Voids 1 2 - Exam GENERAL DESCRIPTION: An elderly female lying in bed in no distress RESPIRATORY SYSTEM: Unlabored breathing , decreased breath sounds at bases HEART: S1 S2 regular rate and rhythm , ABDOMEN: Soft , no tenderness EXTREMITIES: No edema feet - Labs CBC & Chem 7: 07/28/23 05:27 07/28/23 05:27 Labs: Abnormal Lab Results - Last 24 Hours (Table) 07/28/23 07/28/23 Range/Units 05:27 05:27 RBC 3.58 L (3.80-5.40) m/uL Hgb 10.4 L (11.4-16.0) gm/dL Hct 33.0 L (34.0-46.0) % RDW 16.2 H (11.5-15.5) % Sodium 136 L (137-145) mmol/L BUN 23 H (7-17) mg/dL Creatinine 5.03 H (0.52-1.04) mg/dL Assessment and Plan (1) Failure of outpatient treatment Current Visit: Yes Status: Acute Code(s): Z78.9 - OTHER SPECIFIED HEALTH STATUS SNOMED Code(s): 951363199 (2) Leukocytosis Current Visit: No Status: Acute Code(s): D72.829 - ELEVATED WHITE BLOOD CELL COUNT, UNSPECIFIED SNOMED Code(s): 638879190 (3) Renal abscess Current Visit: No Status: Acute Code(s): N15.1 - RENAL AND PERINEPHRIC ABSCESS SNOMED Code(s): 9646673 Plan: 1patient presented to hospital with low-grade fever did have significant vomiting patient did have similar presentation last time when she was admitted to hospital and was diagnosed with a left renal abscess in this patient who s/p CT-guided drainage culture did grow E. coli that was sensitive to ceftriaxone and the patient has completed extensive course of IV followed by oral antibiotic therapy now presenting with similar symptoms concerning for likely left renal abscess 2CT abdominal pelvis shows left-sided renal abscess 3urology has been consulted and they are recommending IR drainage of this abscess , , Drainage procedure has been put on hold by IR because the patient has been on aspirin 4patient will be continued on cefepime at this point as the patient white count has normalized with it clinically doubt cefepime is causing her symptoms of vomiting this was explained to the patient as well as her son at the bedside and other etiologies should be looked for waiting for the IR drainage of this infected cyst and discharged biotic on the basis of those culture Dictation was produced using [employer] dictation software. please excuse any grammatical, word or spelling errors. Time with Patient: Less than 30
[2023-07-28] MEDS: PROCHLORPERAZINE INJ 10 MG/2 ML VIAL IVP PRN (18:01)
[2023-07-28] MEDS: ATORVASTATIN 40 MG TAB PO SCH (21:08)
[2023-07-29] MEDS: DIALYSIS (PERIT 2.5%) 2,500 ML 50 G/2,000 ML BAG INTRAPERIT SCH (06:12)
[2023-07-29 06:28] LABS: Anisocytosis Slight; HCT 32.4 % (34.0-46.0); HGB 10.3 gm/dL (11.4-16.0); Hypochromasia Slight; MCH 29.3 pg (25.0-35.0); MCHC 31.7 g/dL (31.0-37.0); MCV 92.4 fL (80.0-100.0); Mean Platelet Volume 7.8; Platelet Count 341 k/uL (150-450); RBC 3.51 m/uL (3.80-5.40); RDW 16.3 % (11.5-15.5); WBC 11.3 k/uL (3.8-10.6)
[2023-07-29 06:43] LABS: African American GFR (CKD) 9 (>60 ml/min/1.73 sqM); Anion Gap 7 mmol/L; Blood Urea Nitrogen 22 mg/dL (7-17); Carbon Dioxide 27 mmol/L (22-30); Chloride 103 mmol/L (98-107); Glucose 78 mg/dL (74-99); Non-African American GFR(CKD) 8 (>60 ml/min/1.73 sqM); Potassium 3.4 mmol/L (3.5-5.1); Sodium 137 mmol/L (137-145)
[2023-07-29] MEDS: ONDANSETRON 4 MG/2 ML VIAL IVP PRN (08:13)
[2023-07-29] MEDS: CEFEPIME 1 GM in SODIUM CHLORIDE 0.9% 50 ML IVPB SCH (08:13)
[2023-07-29] MEDS: PANTOPRAZOLE 40 MG/10 ML VIAL IV SCH (08:13)
[2023-07-29] MEDS: HEPARIN SODIUM,PORCINE 5,000 UNIT/ML 1 ML VIAL SQ SCH ×2 (08:15→20:12)
[2023-07-29] MEDS: allopurinoL 100 MG TAB PO SCH ×2 (08:18→20:12)
[2023-07-29] MEDS: FERROUS SULFATE 325 MG TAB PO SCH (08:18)
[2023-07-29] MEDS: CHOLECALCIFEROL 25 MCG (1000 IU) TABLET PO SCH (08:18)
[2023-07-29] MEDS: SODIUM BICARBONATE TAB 650 MG TAB PO SCH ×2 (08:18→20:12)
[2023-07-29] MEDS: METOPROLOL TARTRATE 12.5 MG TAB PO SCH ×2 (08:19→20:13)
[2023-07-29] MEDS: CALCIUM ACETATE 667 MG TAB PO SCH ×2 (08:19→17:54)
[2023-07-29] MEDS: AMIODARONE 200 MG TAB PO SCH ×2 (08:19→20:13)
[2023-07-29] MEDS: MIDODRINE 5 MG TAB PO SCH ×3 (08:19→17:54)
[2023-07-29] MEDS ORDERED: POTASSIUM CHLORIDE ER 20 MEQ TAB.ER PO STA (08:26)
--- NOTE | 2023-07-29 08:27 | P.PN ---
Subjective Patient is seen in follow-up for end-stage renal disease. She is maintained on peritoneal dialysis. No problems with PD exchanges. Blood pressure stable. Receiving IV fluids. Vital signs are stable. General: No acute distress. HEENT: Head exam is unremarkable. LUNGS: No audible rhonchi or wheezes. HEART: Rate and Rhythm are regular. ABDOMEN: Nontender. EXTREMITITES: No edema. Objective - Vital Signs Vital signs: Vital Signs Temp 97.8 F 07/29/23 07:39 Pulse 66 07/29/23 07:39 Resp 17 07/29/23 07:39 BP 117/79 07/29/23 07:39 Pulse Ox 95 07/29/23 07:39 FiO2 Intake & Output 07/28/23 07/29/23 07/29/23 18:59 06:59 18:59 Intake Total 340 Output Total 1 Balance -1 340 Weight 74.843 kg Intake: Oral 340 Output: Emesis 1 Other: Voiding Method Toilet Toilet Bedside Commode Bedside Commode # Voids 1 2 - Labs CBC & Chem 7: 07/29/23 05:52 07/29/23 05:52 Labs: Abnormal Lab Results - Last 24 Hours (Table) 07/29/23 07/29/23 Range/Units 05:52 05:52 WBC 11.3 H (3.8-10.6) k/uL RBC 3.51 L (3.80-5.40) m/uL Hgb 10.3 L (11.4-16.0) gm/dL Hct 32.4 L (34.0-46.0) % RDW 16.3 H (11.5-15.5) % Potassium 3.4 L (3.5-5.1) mmol/L BUN 22 H (7-17) mg/dL Creatinine 4.88 H (0.52-1.04) mg/dL Assessment and Plan Plan: Assessment: 1. End-stage renal disease maintained on peritoneal dialysis. 2. Left renal abscess. Urine culture positive for Enterobacter. On IV antibiotics. ID and urology following. May require repeat drainage this admission. 3. Chronic kidney disease mineral bone disease maintained on calcitriol and PhosLo. 4. Hypotension maintained on midodrine. Component of hypovolemia. Better. 5. Hypokalemia from PD losses and poor intake. Plan: Maintain IV fluids. Change PD exchanges to 1.5% dextrose solution. Replacement potassium.
--- NOTE | 2023-07-29 08:58 | P.PN ---
Subjective Progress Note Date: 07/29/23 The patient is in the hospital with a uti wi sepsis. Blood cultures grew enterobacter. She had a lt renal abscess drained 3 mos ago that grew e coli. SHe has polycystic kidney disease with crf on capd. She is clinically stable. Her wbc has been normal to minimally elevated. She feels well other than o ccasional nausea. Objective - Vital Signs Vital signs: Vital Signs Temp 97.8 F 07/29/23 07:39 Pulse 66 07/29/23 07:39 Resp 17 07/29/23 07:39 BP 117/79 07/29/23 07:39 Pulse Ox 95 07/29/23 07:39 FiO2 Intake & Output 07/28/23 07/29/23 07/29/23 18:59 06:59 18:59 Intake Total 340 Output Total 1 Balance -1 340 Weight 74.843 kg Intake: Oral 340 Output: Emesis 1 Other: Voiding Method Toilet Toilet Bedside Commode Bedside Commode # Voids 1 2 - Labs CBC & Chem 7: 07/29/23 05:52 07/29/23 05:52 Labs: Abnormal Lab Results - Last 24 Hours (Table) 07/29/23 07/29/23 Range/Units 05:52 05:52 WBC 11.3 H (3.8-10.6) k/uL RBC 3.51 L (3.80-5.40) m/uL Hgb 10.3 L (11.4-16.0) gm/dL Hct 32.4 L (34.0-46.0) % RDW 16.3 H (11.5-15.5) % Potassium 3.4 L (3.5-5.1) mmol/L BUN 22 H (7-17) mg/dL Creatinine 4.88 H (0.52-1.04) mg/dL Assessment and Plan Assessment: Impression: crf on capd due to polycystic kidney disease. infected left renal cyst 05/23. Recent uti with sepsis enterobacter. Recommendations. The medical /ID staff have questioned whether a left nephrectomy should be performed. Given the lack of obvious abscess evidence on ct scan as well as a different bacteria growing I donot think that I would remove the kidney yet. The ct scan this visit doesnt show any signs of air or obvious inflammation. If I didnt have the ct scan from 05/2023 it would be hard to say that any cyst is infected. To repeat the aspiration is an option to see if there is any infection in the cyst that might merit nephrectomy left. I had a lengthy discussion with the patient about her status. The alternative option would be to treat with oral antbiotics and see how she does. A nephrectomy unfortunately in this situation is not risks free. this has been explained to the patient. We will follow
[2023-07-29] MEDS ORDERED: LEVOFLOXACIN 500 MG TAB PO SCH (09:00)
[2023-07-29] MEDS: DIALYSIS (PERIT 1.5%) 2,000 ML 30 G/2,000 ML BAG INTRAPERIT SCH ×3 (09:51→17:52)
--- NOTE | 2023-07-29 16:31 | P.PN ---
Subjective Progress Note Date: 07/29/23 (pardeep charting seen at approx 10am) Patient is an end-stage renal disease on peritoneal dialysis, atrial fibrillation, presenting with nausea and vomiting and lightheadedness. In the ED vitals were remarkable for pulse 100 and blood pressure 83/52. Laboratrory analysis was remarkable for white blood cell count of 19, sodium 133, potassium 4.2, creatinine 7.4. She was given 2 L of normal saline in the ER. She was admitted for dehydration, nausea, vomiting. Nephrology was consulted. Urine culture was positive for multidrug resistant enetococcus and patient started on vancomycin. ID was consulted. CT abdomen and pelvis showed left cortical cyst decrease in size with resolution of air. GI was consuled and she underwent EGD which showed mild antral gastritis and small hiatal hernia. Urology consulted with concerns for conitnued infected renal cyst. Urology recommends repeat renal cyst drainiage as the organism is different in this urine culture. This cannot be prefored until 08/02/23 due to eliquis and ASA use. Patient continued to have significant orthostatic hypotension Patient seen and examined at bedside. Okay today. Still having some nausea but did not vomit today she ate less. Still overall feeling fatigued and weak. She is aware that she will need to Hemodialysis for Rehab. I Would like to Consider This Due To Her Declining Status. Vital signs reviewed General: nontoxic, no distress, appears at stated age Cardiovascular: S1S2 reg, no murmur, positive posterior tibial pulse bilateral, Lungs: CTA bilateral, no rhonchi, no rales , no accessory muscle use Abdominal: soft, nontender to palpation, no guarding, no appreciable organomegaly Ext: no gross muscle atrophy, no edema b/l lower extremities, no contractures Neuro: CN II-XI grossly intact, no focal neuro deficits Psych: Alert, oriented, appropriate affect Assessment/Plan: Enterococcus urinary tract infection with history of recent left renal abscess End-stage renal disease on peritoneal dialysis Orthostatic hypotension maintained on Midodrine, presyncope Hypokalemia Intractable nausea -Nephrology note reviewed and case discussed with Dr. Hernandez Changing PD exchanges to 1.5% dextrose solution to help with orthostatic hypotension - check AM cortisol level to rule out adrenal insufficiency - Plan is for IR guided drainage of renal cyst to assess for infection on 08/02/22-- ASA and eliquis remain on hold. - Sodium bicarb 650 mg oral twice daily -Midodrine 5 mg 3 times daily -Cefepime 1 g IV piggyback every 12 hours D # 7 - once patietn accepted to SNF will need Vascular consult for HD cath placement Gastritis - Protonix 40 mg IVP daily Chronic: A-Fib Gout HDL h/o TIA Imaging: None new Data Review: Labs reviewed today include CBC and basic metabolic profile which were remarkable for white blood cell count 11.3, hemoglobin 10.3, potassium 3.4 DVT prophylaxis: Heparin Anticipated discharge date: Pending Clinical Course Anticipated discharge place: [facility] This dictation was prepared using [employer] voice recognition software. Though every attempt is made to correct errors during dictation some may still exist. Objective - Vital Signs Vital signs: Vital Signs Temp 98.1 F 07/29/23 12:15 Pulse 56 L 07/29/23 12:15 Resp 16 07/29/23 12:15 BP 118/69 07/29/23 12:15 Pulse Ox 94 L 07/29/23 12:15 FiO2 Intake & Output 07/28/23 07/29/23 07/29/23 18:59 06:59 18:59 Intake Total 340 Output Total 1 Balance -1 340 Weight 74.843 kg Intake: Oral 340 Output: Emesis 1 Other: Voiding Method Toilet Toilet Toilet Bedside Commode Bedside Commode Bedside Commode # Voids 1 2 - Labs CBC & Chem 7: 07/29/23 05:52 07/29/23 05:52 Labs: Abnormal Lab Results - Last 24 Hours (Table) 07/29/23 07/29/23 Range/Units 05:52 05:52 WBC 11.3 H (3.8-10.6) k/uL RBC 3.51 L (3.80-5.40) m/uL Hgb 10.3 L (11.4-16.0) gm/dL Hct 32.4 L (34.0-46.0) % RDW 16.3 H (11.5-15.5) % Potassium 3.4 L (3.5-5.1) mmol/L BUN 22 H (7-17) mg/dL Creatinine 4.88 H (0.52-1.04) mg/dL
[2023-07-29] MEDS: SODIUM CHLORIDE 0.9% 1,000 ML IV SCH (17:54)
[2023-07-29] MEDS: ATORVASTATIN 40 MG TAB PO SCH (20:12)
[2023-07-29] MEDS: ACETAMINOPHEN TAB 325 MG TAB PO PRN (22:59)
[2023-07-30] MEDS: DIALYSIS (PERIT 1.5%) 2,000 ML 30 G/2,000 ML BAG INTRAPERIT SCH ×4 (00:19→18:00)
[2023-07-30] MEDS: SODIUM CHLORIDE 0.9% 1,000 ML IV SCH ×2 (01:41→17:43)
[2023-07-30] MEDS: ONDANSETRON 4 MG/2 ML VIAL IVP PRN ×2 (06:43→17:54)
[2023-07-30] MEDS: AMIODARONE 200 MG TAB PO SCH ×2 (08:15→20:46)
[2023-07-30] MEDS: CALCIUM ACETATE 667 MG TAB PO SCH ×2 (08:15→17:30)
[2023-07-30] MEDS: FERROUS SULFATE 325 MG TAB PO SCH (08:15)
[2023-07-30] MEDS: SODIUM BICARBONATE TAB 650 MG TAB PO SCH ×2 (08:15→20:46)
[2023-07-30] MEDS: MIDODRINE 5 MG TAB PO SCH ×3 (08:15→17:30)
[2023-07-30] MEDS: HEPARIN SODIUM,PORCINE 5,000 UNIT/ML 1 ML VIAL SQ SCH ×2 (08:15→20:46)
[2023-07-30] MEDS: CHOLECALCIFEROL 25 MCG (1000 IU) TABLET PO SCH (08:15)
[2023-07-30] MEDS: METOPROLOL TARTRATE 12.5 MG TAB PO SCH ×2 (08:15→20:46)
[2023-07-30] MEDS: allopurinoL 100 MG TAB PO SCH ×2 (08:15→20:46)
[2023-07-30] MEDS: CEFEPIME 1 GM in SODIUM CHLORIDE 0.9% 50 ML IVPB SCH (08:16)
[2023-07-30 10:10] LABS: BUN/Creat Ratio 4.43 Ratio (12.00-20.00); Blood Urea Nitrogen 21.7 mg/dL (9.0-27.0); Calcium 8.9 mg/dL (8.7-10.3); Carbon Dioxide 25.8 mmol/L (21.6-31.8); Chloride 103 mmol/L (96-109); Glucose 71 mg/dL (70-110); Magnesium 1.7 mg/dL (1.5-2.4); Potassium 3.5 mmol/L (3.5-5.5); Sodium 137 mmol/L (135-145)
[2023-07-30] MEDS: PANTOPRAZOLE 40 MG/10 ML VIAL IV SCH (10:10)
[2023-07-30] MEDS ORDERED: POTASSIUM CHLORIDE ER 20 MEQ TAB.ER PO STA (11:48)
--- NOTE | 2023-07-30 11:49 | P.PN ---
Subjective Patient is seen in follow-up for end-stage renal disease. She is maintained on peritoneal dialysis. No problems with PD exchanges. Blood pressure stable. Receiving IV fluids. Admits to constipation. Vital signs are stable. General: No acute distress. HEENT: Head exam is unremarkable. LUNGS: No audible rhonchi or wheezes. HEART: Rate and Rhythm are regular. ABDOMEN: Nontender. EXTREMITITES: No edema. Objective - Vital Signs Vital signs: Vital Signs Temp 98.1 F 07/30/23 06:55 Pulse 65 07/30/23 06:55 Resp 16 07/30/23 06:55 BP 117/75 07/30/23 06:55 Pulse Ox 95 07/30/23 06:55 FiO2 Intake & Output 07/29/23 07/30/23 07/30/23 18:59 06:59 18:59 Intake Total 900 Balance 900 Intake: Intake, IV Titration 900 Amount Sodium Chloride 0.9% 1, 900 000 ml @ 75 mls/hr IV . [id number] [facility] Rx#:[id number] Other: Voiding Method Toilet Toilet Bedside Commode CAPD # Voids 3 1 - Labs CBC & Chem 7: 07/29/23 05:52 07/30/23 04:36 Labs: Abnormal Lab Results - Last 24 Hours (Table) 07/30/23 Range/Units 04:36 Creatinine 4.9 H (0.6-1.5) mg/dL Est GFR (CKD-EPI) 8 L (>=60) BUN/Creatinine Ratio 4.43 L (12.00-20.00) Ratio Assessment and Plan Plan: Assessment: 1. End-stage renal disease maintained on peritoneal dialysis. 2. Left renal abscess. Urine culture positive for Enterobacter. On IV antibiotics. ID and urology following. May require repeat drainage this admission - scheduled for Tuesday. 3. Chronic kidney disease mineral bone disease maintained on calcitriol and PhosLo. 4. Hypotension maintained on midodrine. Component of hypovolemia. Better. 5. Hypokalemia from PD losses and poor intake. Plan: Maintain IV fluids. Maintain current PD exchanges. Replace potassium. AM cortisol level not low. Check phosphorus level. Lactulose as needed for constipation. Discussed with primary team.
--- NOTE | 2023-07-30 12:28 | P.PN ---
Subjective Progress Note Date: 07/29/23 Principal diagnosis: Reason for follow-up is UTI and concern for left renal abscess Patient is a 82-year female with a past medical history significant for end-stage renal disease on peritoneal dialysis recent admission to the hospital with left renal abscess status post CT-guided drainage culture positive for E. coli for the patient is completed about 6 weeks of antibiotic therapy presenting back to the hospital with intractable nausea and vomiting On today's evaluation that is 07/29/2023 the patient continues to be afebrile, the patient is breathing comfortably on room air patient denies having any chest pain shortness of breath or cough complaining of feeling weak no further vomiting and no abdominal pain no diarrhea. Patient did have white count of 11.3, creatinine is 4.88 Objective - Vital Signs Vital signs: Vital Signs Temp 97.8 F 07/29/23 07:39 Pulse 66 07/29/23 07:39 Resp 16 07/29/23 08:00 BP 117/79 07/29/23 07:39 Pulse Ox 95 07/29/23 07:39 FiO2 Intake & Output 07/28/23 07/29/23 07/29/23 18:59 06:59 18:59 Intake Total 340 Output Total 1 Balance -1 340 Weight 74.843 kg Intake: Oral 340 Output: Emesis 1 Other: Voiding Method Toilet Toilet Toilet Bedside Commode Bedside Commode Bedside Commode # Voids 1 2 - Exam GENERAL DESCRIPTION: An elderly female lying in bed in no distress RESPIRATORY SYSTEM: Unlabored breathing , decreased breath sounds at bases HEART: S1 S2 regular rate and rhythm , ABDOMEN: Soft , no tenderness EXTREMITIES: No edema feet - Labs CBC & Chem 7: 07/29/23 05:52 07/30/23 04:36 Labs: Abnormal Lab Results - Last 24 Hours (Table) 07/29/23 07/29/23 Range/Units 05:52 05:52 WBC 11.3 H (3.8-10.6) k/uL RBC 3.51 L (3.80-5.40) m/uL Hgb 10.3 L (11.4-16.0) gm/dL Hct 32.4 L (34.0-46.0) % RDW 16.3 H (11.5-15.5) % Potassium 3.4 L (3.5-5.1) mmol/L BUN 22 H (7-17) mg/dL Creatinine 4.88 H (0.52-1.04) mg/dL Assessment and Plan (1) Failure of outpatient treatment Current Visit: Yes Status: Acute Code(s): Z78.9 - OTHER SPECIFIED HEALTH STATUS SNOMED Code(s): 718176855 (2) Leukocytosis Current Visit: No Status: Acute Code(s): D72.829 - ELEVATED WHITE BLOOD CELL COUNT, UNSPECIFIED SNOMED Code(s): 525722161 (3) Renal abscess Current Visit: No Status: Acute Code(s): N15.1 - RENAL AND PERINEPHRIC ABSCESS SNOMED Code(s): 1037351 Plan: 1patient presented to hospital with low-grade fever did have significant vomiting patient did have similar presentation last time when she was admitted to hospital and was diagnosed with a left renal abscess in this patient who s/p CT-guided drainage culture did grow E. coli that was sensitive to ceftriaxone and the patient has completed extensive course of IV followed by oral antibiotic therapy now presenting with similar symptoms concerning for likely left renal abscess 2CT abdominal pelvis shows left-sided renal abscess 3urology has been consulted and they are recommending IR drainage of this abscess , , Drainage procedure has been put on hold by IR because the patient has been on aspirin And is currently rescheduled for 08/02/2023. 4we will keep the patient on cefepime while waiting for the drainage procedure that will determine her discharge antibiotics Family the bedside multiple questions concern answered Dictation was produced using [employer] dictation software. please excuse any grammatical, word or spelling errors. Time with Patient: Less than 30
--- NOTE | 2023-07-30 12:29 | P.PN ---
Subjective Progress Note Date: 07/30/23 Principal diagnosis: Reason for follow-up is UTI and concern for left renal abscess Patient is a 82-year female with a past medical history significant for end-stage renal disease on peritoneal dialysis recent admission to the hospital with left renal abscess status post CT-guided drainage culture positive for E. coli for the patient is completed about 6 weeks of antibiotic therapy presenting back to the hospital with intractable nausea and vomiting On today's evaluation that is 07/30/2023 the patient remains to be afebrile, the patient is breathing comfortably on room air patient denies chest pain shortness of breath or cough, the patient denies any further vomiting and no abdominal pain no diarrhea has been reported. Patient did have white count of 11.3 as of 07/29/2023, creatinine is 4.89 Objective - Vital Signs Vital signs: Vital Signs Temp 98.1 F 07/30/23 06:55 Pulse 65 07/30/23 06:55 Resp 16 07/30/23 06:55 BP 117/75 07/30/23 06:55 Pulse Ox 95 07/30/23 06:55 FiO2 Intake & Output 07/29/23 07/30/23 07/30/23 18:59 06:59 18:59 Intake Total 900 Balance 900 Intake: Intake, IV Titration 900 Amount Sodium Chloride 0.9% 1, 900 000 ml @ 75 mls/hr IV . [id number] [facility] Rx#:[id number] Other: Voiding Method Toilet Toilet Bedside Commode CAPD # Voids 3 1 - Exam GENERAL DESCRIPTION: An elderly female lying in bed in no distress RESPIRATORY SYSTEM: Unlabored breathing , decreased breath sounds at bases HEART: S1 S2 regular rate and rhythm , ABDOMEN: Soft , no tenderness EXTREMITIES: No edema feet - Labs CBC & Chem 7: 07/29/23 05:52 07/30/23 04:36 Labs: Abnormal Lab Results - Last 24 Hours (Table) 07/30/23 Range/Units 04:36 Creatinine 4.9 H (0.6-1.5) mg/dL Est GFR (CKD-EPI) 8 L (>=60) BUN/Creatinine Ratio 4.43 L (12.00-20.00) Ratio Assessment and Plan (1) Failure of outpatient treatment Current Visit: Yes Status: Acute Code(s): Z78.9 - OTHER SPECIFIED HEALTH STATUS SNOMED Code(s): 224263994 (2) Leukocytosis Current Visit: No Status: Acute Code(s): D72.829 - ELEVATED WHITE BLOOD CELL COUNT, UNSPECIFIED SNOMED Code(s): 636451227 (3) Renal abscess Current Visit: No Status: Acute Code(s): N15.1 - RENAL AND PERINEPHRIC ABSCESS SNOMED Code(s): 6311314 Plan: 1patient presented to hospital with low-grade fever did have significant vomiting patient did have similar presentation last time when she was admitted to hospital and was diagnosed with a left renal abscess in this patient who s/p CT-guided drainage culture did grow E. coli that was sensitive to ceftriaxone and the patient has completed extensive course of IV followed by oral antibiotic therapy now presenting with similar symptoms concerning for likely left renal a bscess 2CT abdominal pelvis shows left-sided renal abscess 3urology has been consulted and they are recommending IR drainage of this abscess , , Drainage procedure has been put on hold by IR because the patient has been on aspirin and is currently rescheduled for 08/02/2023. 4patient to continue with the cefepime currently waiting for the IR aspiration of the infected cyst with a discharge antibiotic on the basis of those culture Dictation was produced using [employer] dictation software. please excuse any grammatical, word or spelling errors. Time with Patient: Less than 30
[2023-07-30] MEDS: LACTULOSE 20 GM/30 ML CUP PO PRN (12:48)
--- NOTE | 2023-07-30 15:14 | P.PN ---
Subjective Progress Note Date: 07/30/23 (delayed charting seen at 0930) Patient is an end-stage renal disease on peritoneal dialysis, atrial fibrillation, presenting with nausea and vomiting and lightheadedness. In the ED vitals were remarkable for pulse 100 and blood pressure 83/52. Laboratrory analysis was remarkable for white blood cell count of 19, sodium 133, potassium 4.2, creatinine 7.4. She was given 2 L of normal saline in the ER. She was admitted for dehydration, nausea, vomiting. Nephrology was consulted. Urine culture was positive for multidrug resistant enetococcus and patient started on vancomycin. ID was consulted. CT abdomen and pelvis showed left cortical cyst decrease in size with resolution of air. GI was consuled and she underwent EGD which showed mild antral gastritis and small hiatal hernia. Urology consulted with concerns for conitnued infected renal cyst. Urology recommends repeat renal cyst drainiage as the organism is different in this urine culture. This cannot be preformed until 08/02/23 due to eliquis and ASA use. Patient continued to have significant orthostatic hypotension Patient seen and examined at bedside. She denies any chest pain, shortness of breath. She does still have some nausea, no vomiting, and did tolerate small amounts of oral intake. She does have some constipation. Vital signs reviewed General: nontoxic, no distress, appears at stated age Cardiovascular: S1S2 reg, no murmur, positive posterior tibial pulse bilateral, Lungs: Decreased bs bilateral, no rhonchi, no rales , no accessory muscle use Abdominal: soft, nontender to palpation, no guarding, no appreciable organomegaly Ext: no gross muscle atrophy, no edema b/l lower extremities, no contractures Neuro: CN II-XI grossly intact, no focal neuro deficits Psych: Alert, oriented, appropriate affect Assessment/Plan: Enterococcus urinary tract infection with history of recent left renal abscess End-stage renal disease on peritoneal dialysis Orthostatic hypotension maintained on Midodrine, presyncope Hypokalemia Intractable nausea - nephrology note reviewed: maintain fluids and PD changes - ID note reviwed: awaite IR guided aspiration -Nephrology note reviewed and case discussed with Dr. Hernandez Changing PD exchanges to 1.5% dextrose solution to help with orthostatic hypotension - Indeterminant AM cortisol level at >3 but <18 will proceed with ACTH stim test in AM. Orders entered and communicated with nursing. - Plan is for IR guided drainage of renal cyst to assess for infection on 08/02/22-- ASA and eliquis remain on hold. - Sodium bicarb 650 mg oral twice daily -Midodrine 5 mg 3 times daily -Cefepime 1 g IV piggyback every 12 hours D # 8 - once patietn accepted to [facility] will need Vascular consult for HD cath placement Gastritis - Protonix 40 mg IVP daily Constipation - lactulose 10 mg PO TID pen constipation Chronic: A-Fib Gout HDL h/o TIA Imaging: None new Data Review: Labs from today include a basic metabolic profile which was reviewed and unremarkable. Magnesium is slightly low at 1.7. DVT prophylaxis: Heparin Anticipated discharge date: Pending Clinical Course Anticipated discharge place: [facility] This dictation was prepared using [employer] voice recognition software. Though every attempt is made to correct errors during dictation some may still exist. Objective - Vital Signs Vital signs: Vital Signs Temp 98.1 F 07/30/23 12:00 Pulse 74 07/30/23 12:00 Resp 18 07/30/23 12:00 BP 123/69 07/30/23 12:00 Pulse Ox 97 07/30/23 12:00 FiO2 Intake & Output 07/29/23 07/30/23 07/30/23 18:59 06:59 18:59 Intake Total 900 Balance 900 Intake: Intake, IV Titration 900 Amount Sodium Chloride 0.9% 1, 900 000 ml @ 75 mls/hr IV . [id number] Rx#:[id number] Other: Voiding Method Toilet Toilet Toilet Bedside Commode CAPD CAPD # Voids 3 1 - Labs CBC & Chem 7: 07/29/23 05:52 07/30/23 04:36 Labs: Abnormal Lab Results - Last 24 Hours (Table) 07/30/23 Range/Units 04:36 Creatinine 4.9 H (0.6-1.5) mg/dL Est GFR (CKD-EPI) 8 L (>=60) BUN/Creatinine Ratio 4.43 L (12.00-20.00) Ratio
[2023-07-30] MEDS: ATORVASTATIN 40 MG TAB PO SCH (20:46)
[2023-07-31] MEDS: DIALYSIS (PERIT 1.5%) 2,000 ML 30 G/2,000 ML BAG INTRAPERIT SCH ×5 (00:21→23:56)
[2023-07-31] MEDS: SODIUM CHLORIDE 0.9% 1,000 ML IV SCH ×2 (02:25→17:09)
[2023-07-31] MEDS: ONDANSETRON 4 MG/2 ML VIAL IVP PRN ×2 (07:46→13:25)
[2023-07-31] MEDS: SODIUM BICARBONATE TAB 650 MG TAB PO SCH ×2 (08:38→21:18)
[2023-07-31] MEDS: FERROUS SULFATE 325 MG TAB PO SCH (08:38)
[2023-07-31] MEDS: METOPROLOL TARTRATE 12.5 MG TAB PO SCH ×2 (08:38→21:18)
[2023-07-31] MEDS: AMIODARONE 200 MG TAB PO SCH ×2 (08:38→21:18)
[2023-07-31] MEDS: CHOLECALCIFEROL 25 MCG (1000 IU) TABLET PO SCH (08:38)
[2023-07-31] MEDS: CEFEPIME 1 GM in SODIUM CHLORIDE 0.9% 50 ML IVPB SCH (08:38)
[2023-07-31] MEDS: allopurinoL 100 MG TAB PO SCH ×2 (08:38→21:18)
[2023-07-31] MEDS: MIDODRINE 5 MG TAB PO SCH ×3 (08:39→17:18)
[2023-07-31] MEDS: CALCIUM ACETATE 667 MG TAB PO SCH ×2 (08:39→17:18)
[2023-07-31] MEDS: HEPARIN SODIUM,PORCINE 5,000 UNIT/ML 1 ML VIAL SQ SCH ×2 (08:39→21:18)
[2023-07-31] MEDS: PANTOPRAZOLE 40 MG/10 ML VIAL IV SCH (09:24)
[2023-07-31] MEDS ORDERED: COSYNTROPIN 0.25 MG VIAL IVP ONE (10:30)
--- NOTE | 2023-07-31 10:50 | P.PN ---
Subjective Patient is seen in follow-up for end-stage renal disease. She is maintained on peritoneal dialysis. No problems with PD exchanges. Blood pressure stable. Receiving IV fluids. Had a bowel movement from lactulose. Vital signs are stable. General: No acute distress. HEENT: Head exam is unremarkable. LUNGS: No audible rhonchi or wheezes. HEART: Rate and Rhythm are regular. ABDOMEN: Nontender. EXTREMITITES: No edema. Objective - Vital Signs Vital signs: Vital Signs Temp 98 F 07/31/23 07:08 Pulse 94 07/31/23 09:02 Resp 16 07/31/23 07:08 BP 94/61 07/31/23 09:02 Pulse Ox 96 07/31/23 07:08 FiO2 Intake & Output 07/30/23 07/31/23 07/31/23 18:59 06:59 18:59 Intake Total 0 Balance 0 Intake: Oral 0 Other: Voiding Method Toilet Toilet Toilet CAPD CAPD CAPD # Voids 0 3 1 # Bowel Movements 1 - Labs CBC & Chem 7: 07/29/23 05:52 07/30/23 04:36 Assessment and Plan Plan: Assessment: 1. End-stage renal disease maintained on peritoneal dialysis. 2. Left renal abscess. Urine culture positive for Enterobacter. On IV antibiotics. ID and urology following. May require repeat drainage this admission - scheduled for Tuesday. 3. Chronic kidney disease mineral bone disease maintained on calcitriol and PhosLo. Phosphorus level 2.9 dated 07/30/2023 - PhosLo decreased to be given with dinner only. 4. Hypotension maintained on midodrine. Component of hypovolemia. Improved. 5. Hypokalemia from PD losses and poor intake. Replaced. Plan: Maintain IV fluids. Maintain current PD exchanges. AM cortisol level not low. Lactulose as needed for constipation.
[2023-07-31 11:49] LABS: African American GFR (CKD) 9 (>60 ml/min/1.73 sqM); Anion Gap 7 mmol/L; Blood Urea Nitrogen 26 mg/dL (7-17); Carbon Dioxide 28 mmol/L (22-30); Chloride 100 mmol/L (98-107); Glucose 95 mg/dL (74-99); Non-African American GFR(CKD) 8 (>60 ml/min/1.73 sqM); Potassium 3.6 mmol/L (3.5-5.1); Sodium 135 mmol/L (137-145)
[2023-07-31 12:02] LABS: Anisocytosis Slight; HGB 10.7 gm/dL (11.4-16.0); Hypochromasia Slight; MCH 29.4 pg (25.0-35.0); MCHC 31.4 g/dL (31.0-37.0); MCV 93.4 fL (80.0-100.0); Mean Platelet Volume 8.1; Platelet Count 318 k/uL (150-450); RBC 3.63 m/uL (3.80-5.40); RDW 16.7 % (11.5-15.5); WBC 12.5 k/uL (3.8-10.6)
--- NOTE | 2023-07-31 13:13 | P.PN ---
Subjective Progress Note Date: 07/31/23 (delayed charting seen at 0830) Patient is an end-stage renal disease on peritoneal dialysis, atrial fibrillation, presenting with nausea and vomiting and lightheadedness. In the ED vitals were remarkable for pulse 100 and blood pressure 83/52. Laboratrory analysis was remarkable for white blood cell count of 19, sodium 133, potassium 4.2, creatinine 7.4. She was given 2 L of normal saline in the ER. She was admitted for dehydration, nausea, vomiting. Nephrology was consulted. Urine culture was positive for multidrug resistant enetococcus and patient started on vancomycin. ID was consulted. CT abdomen and pelvis showed left cortical cyst decrease in size with resolution of air. GI was consulted and she underwent EGD which showed mild antral gastritis and small hiatal hernia. Urology consulted with concerns for continued infected renal cyst. Urology recommends repeat renal cyst drainage as the organism is different in this urine culture. This cannot be preformed until 08/02/23 due to eliquis and ASA use. Patient continued to have significant orthostatic hypotension Patient seen and examined at bedside. Her nausea has been somewhat better she again ate a little for breakfast. She denies any chest pain or shortness of breath. No dizziness at this time. She did have 2 bowel movements yesterday. Vital signs reviewed General: nontoxic, no distress, appears at stated age Cardiovascular: S1S2 reg, no murmur, positive posterior tibial pulse bilateral, Lungs: Decreased bs bilateral, no rhonchi, no rales , no accessory muscle use Abdominal: soft, nontender to palpation, no guarding, no appreciable organomegaly Ext: no gross muscle atrophy, no edema b/l lower extremities, no contractures Neuro: CN II-XI grossly intact, no focal neuro deficits Psych: Alert, oriented, appropriate affect Assessment/Plan: Enterococcus urinary tract infection with history of recent left renal abscess End-stage renal disease on peritoneal dialysis Orthostatic hypotension maintained on Midodrine, presyncope Hypokalemia Intractable nausea -Nephrology note reviewed: Continue with fluids and PD exchanges. - ID note reviewed: await IR guided aspiration - await results of ACTH stim test - Plan is for IR guided drainage of renal cyst to assess for infection on 08/02/22-- ASA and eliquis remain on hold. - Sodium bicarb 650 mg oral twice daily - Midodrine 5 mg 3 times daily - Cefepime 1 g IV piggyback every 12 hours D # 9 - once patietn accepted to [facility] will need Vascular consult for HD cath placement Gastritis - Protonix 40 mg IVP daily Constipation - lactulose 10 mg PO TID prn constipation Chronic: A-Fib Gout HDL h/o TIA Imaging: None new Data Review: Labs reviewed today include CBC and basic metabolic profile which are remarkable for white blood cell count 12.5, hemoglobin 10.7, sodium 135. DVT prophylaxis: Heparin Anticipated discharge date: Pending Clinical Course Anticipated discharge place: [facility] This dictation was prepared using [employer] voice recognition software. Though every attempt is made to correct errors during dictation some may still exist. Objective - Vital Signs Vital signs: Vital Signs Temp 98 F 07/31/23 07:08 Pulse 94 07/31/23 09:02 Resp 16 07/31/23 07:08 BP 94/61 07/31/23 09:02 Pulse Ox 96 07/31/23 07:08 FiO2 Intake & Output 07/30/23 07/31/23 07/31/23 18:59 06:59 18:59 Intake Total 0 Balance 0 Intake: Oral 0 Other: Voiding Method Toilet Toilet Toilet CAPD CAPD CAPD # Voids 0 3 1 # Bowel Movements 1 - Labs CBC & Chem 7: 07/31/23 11:09 07/31/23 11:09 Labs: Abnormal Lab Results - Last 24 Hours (Table) 07/31/23 07/31/23 Range/Units 11:09 11:09 WBC 12.5 H (3.8-10.6) k/uL RBC 3.63 L (3.80-5.40) m/uL Hgb 10.7 L (11.4-16.0) gm/dL RDW 16.7 H (11.5-15.5) % Sodium 135 L (137-145) mmol/L BUN 26 H (7-17) mg/dL Creatinine 4.70 H (0.52-1.04) mg/dL
--- NOTE | 2023-07-31 16:12 | P.PN ---
Subjective Progress Note Date: 07/31/23 Principal diagnosis: Reason for follow-up is UTI and concern for left renal abscess Patient is a 82-year female with a past medical history significant for end-stage renal disease on peritoneal dialysis recent admission to the hospital with left renal abscess status post CT-guided drainage culture positive for E. coli for the patient is completed about 6 weeks of antibiotic therapy presenting back to the hospital with intractable nausea and vomiting On today's evaluation that is 07/31/2023 the patient denies having any fever or any chills, the patient is breathing comfortably on room air patient denies having any chest pain shortness of breath or cough, patient mention did have an episode of vomiting yesterday after supper and none since morning denies any ab dominal pain or diarrhea. Patient white count of 12.5, creatinine 4.70 Objective - Vital Signs Vital signs: Vital Signs Temp 98 F 07/31/23 07:08 Pulse 94 07/31/23 09:02 Resp 16 07/31/23 07:08 BP 94/61 07/31/23 09:02 Pulse Ox 96 07/31/23 07:08 FiO2 Intake & Output 07/30/23 07/31/23 07/31/23 18:59 06:59 18:59 Intake Total 0 Balance 0 Intake: Oral 0 Other: Voiding Method Toilet Toilet Toilet CAPD CAPD CAPD # Voids 0 3 1 # Bowel Movements 1 - Exam GENERAL DESCRIPTION: An elderly female lying in bed in no distress RESPIRATORY SYSTEM: Unlabored breathing , decreased breath sounds at bases HEART: S1 S2 regular rate and rhythm , ABDOMEN: Soft , no tenderness EXTREMITIES: No edema feet - Labs CBC & Chem 7: 07/31/23 11:09 07/31/23 11:09 Labs: Abnormal Lab Results - Last 24 Hours (Table) 07/31/23 07/31/23 Range/Units 11:09 11:09 WBC 12.5 H (3.8-10.6) k/uL RBC 3.63 L (3.80-5.40) m/uL Hgb 10.7 L (11.4-16.0) gm/dL RDW 16.7 H (11.5-15.5) % Sodium 135 L (137-145) mmol/L BUN 26 H (7-17) mg/dL Creatinine 4.70 H (0.52-1.04) mg/dL Assessment and Plan (1) Failure of outpatient treatment Current Visit: Yes Status: Acute Code(s): Z78.9 - OTHER SPECIFIED HEALTH STATUS SNOMED Code(s): 996558029 (2) Leukocytosis Current Visit: No Status: Acute Code(s): D72.829 - ELEVATED WHITE BLOOD CELL COUNT, UNSPECIFIED SNOMED Code(s): 070703985 (3) Renal abscess Current Visit: No Status: Acute Code(s): N15.1 - RENAL AND PERINEPHRIC ABSCESS SNOMED Code(s): 7532471 Plan: 1patient presented to hospital with low-grade fever did have significant vomiting patient did have similar presentation last time when she was admitted to hospital and was diagnosed with a left renal abscess in this patient who s/p CT-guided drainage culture did grow E. coli that was sensitive to ceftriaxone and the patient has completed extensive course of IV followed by oral antibiotic therapy now presenting with similar symptoms concerning for likely left renal abscess 2CT abdominal pelvis shows left-sided renal abscess 3urology has been consulted and they are recommending IR drainage of this abscess , , Drainage procedure has been put on hold by IR because the patient has been on aspirin and is currently rescheduled for 08/02/2023. 4patient cefepime will be continued while awaiting drainage procedure and cultures and monitor clinical course closely Dictation was produced using [employer] dictation software. please excuse any grammatical, word or spelling errors. Time with Patient: Less than 30
[2023-07-31] MEDS: PROCHLORPERAZINE INJ 10 MG/2 ML VIAL IVP PRN (17:18)
[2023-07-31] MEDS: ATORVASTATIN 40 MG TAB PO SCH (21:18)
[2023-08-01] MEDS: DIALYSIS (PERIT 1.5%) 2,000 ML 30 G/2,000 ML BAG INTRAPERIT SCH ×2 (06:15→12:10)
[2023-08-01] MEDS: SODIUM CHLORIDE 0.9% 1,000 ML IV SCH ×2 (06:56→08:20)
[2023-08-01] MEDS: ONDANSETRON 4 MG/2 ML VIAL IVP PRN ×2 (06:58→13:01)
[2023-08-01] MEDS: METOPROLOL TARTRATE 12.5 MG TAB PO SCH ×2 (08:20→21:21)
[2023-08-01] MEDS: MIDODRINE 5 MG TAB PO SCH ×3 (08:21→18:07)
[2023-08-01] MEDS: SODIUM BICARBONATE TAB 650 MG TAB PO SCH ×2 (08:21→21:21)
[2023-08-01] MEDS: FERROUS SULFATE 325 MG TAB PO SCH (08:21)
[2023-08-01] MEDS: CHOLECALCIFEROL 25 MCG (1000 IU) TABLET PO SCH (08:21)
[2023-08-01] MEDS: HEPARIN SODIUM,PORCINE 5,000 UNIT/ML 1 ML VIAL SQ SCH (08:21)
[2023-08-01] MEDS: AMIODARONE 200 MG TAB PO SCH ×2 (08:21→21:21)
[2023-08-01] MEDS: allopurinoL 100 MG TAB PO SCH ×2 (08:21→21:21)
[2023-08-01] MEDS: PANTOPRAZOLE 40 MG/10 ML VIAL IV SCH (08:22)
[2023-08-01] MEDS: LACTULOSE 20 GM/30 ML CUP PO PRN (08:23)
[2023-08-01] MEDS: CEFEPIME 1 GM in SODIUM CHLORIDE 0.9% 50 ML IVPB SCH (09:09)
[2023-08-01 10:54] LABS: BUN/Creat Ratio 4.88 Ratio (12.00-20.00); Blood Urea Nitrogen 24.4 mg/dL (9.0-27.0); Calcium 9.2 mg/dL (8.7-10.3); Carbon Dioxide 24.6 mmol/L (21.6-31.8); Chloride 102 mmol/L (96-109); Glucose 65 mg/dL (70-110); Magnesium 1.6 mg/dL (1.5-2.4); Potassium 3.5 mmol/L (3.5-5.5); Sodium 138 mmol/L (135-145)
[2023-08-01] MEDS ORDERED: POTASSIUM CHLORIDE ER 20 MEQ TAB.ER PO STA (11:05)
--- NOTE | 2023-08-01 11:06 | P.PN ---
Subjective Patient is seen in follow-up for end-stage renal disease. She is maintained on peritoneal dialysis. No problems with PD exchanges. Blood pressure stable. Receiving IV fluids. No active complaints. Vital signs are stable. General: No acute distress. HEENT: Head exam is unremarkable. LUNGS: No audible rhonchi or wheezes. HEART: Rate and Rhythm are regular. ABDOMEN: Nontender. EXTREMITITES: No edema. Objective - Vital Signs Vital signs: Vital Signs Temp 97.7 F 08/01/23 07:15 Pulse 65 08/01/23 07:15 Resp 16 08/01/23 07:15 BP 117/73 08/01/23 07:15 Pulse Ox 96 08/01/23 07:15 FiO2 Intake & Output 07/31/23 08/01/23 08/01/23 18:59 06:59 18:59 Other: Voiding Method Toilet Toilet CAPD CAPD # Voids 1 - Labs CBC & Chem 7: 07/31/23 11:09 08/01/23 06:01 Labs: Abnormal Lab Results - Last 24 Hours (Table) 07/31/23 07/31/23 07/31/23 Range/Units 11:09 11:09 11:54 WBC 12.5 H (3.8-10.6) k/uL RBC 3.63 L (3.80-5.40) m/uL Hgb 10.7 L (11.4-16.0) gm/dL RDW 16.7 H (11.5-15.5) % Sodium 135 L (137-145) mmol/L BUN 26 H (7-17) mg/dL Creatinine 4.70 H (0.52-1.04) mg/dL Est GFR (CKD-EPI) (>=60) BUN/Creatinine Ratio (12.00-20.00) Ratio Glucose (70-110) mg/dL Cortisol 24.6 H (3.1-22.4) UG/DL 08/01/23 Range/Units 06:01 WBC (3.8-10.6) k/uL RBC (3.80-5.40) m/uL Hgb (11.4-16.0) gm/dL RDW (11.5-15.5) % Sodium (137-145) mmol/L BUN (7-17) mg/dL Creatinine 5.0 H (0.52-1.04) mg/dL Est GFR (CKD-EPI) 8 L (>=60) BUN/Creatinine Ratio 4.88 L (12.00-20.00) Ratio Glucose 65 L (70-110) mg/dL Cortisol (3.1-22.4) UG/DL Assessment and Plan Plan: Assessment: 1. End-stage renal disease maintained on peritoneal dialysis. 2. Left renal abscess. Urine culture positive for Enterobacter. On IV antibiotics. ID and urology following. May require repeat drainage this admission - scheduled for Tuesday. 3. Chronic kidney disease mineral bone disease maintained on calcitriol and PhosLo. Phosphorus level 2.9 dated 07/30/2023 - PhosLo decreased to be given with dinner only. 4. Hypotension maintained on midodrine. Component of hypovolemia. Improved. 5. Hypokalemia from PD losses and poor intake. Replaced. Plan: Maintain IV fluids. Maintain current PD exchanges. AM cortisol level not low. Lactulose as needed for constipation. Replace potassium.
--- NOTE | 2023-08-01 12:00 | P.PN ---
Subjective Progress Note Date: 08/01/23 Patient is an end-stage renal disease on peritoneal dialysis, atrial fibrillation, presenting with nausea and vomiting and lightheadedness. In the ED vitals were remarkable for pulse 100 and blood pressure 83/52. Laboratrory analysis was remarkable for white blood cell count of 19, sodium 133, potassium 4.2, creatinine 7.4. She was given 2 L of normal saline in the ER. She was admitted for dehydration, nausea, vomiting. Nephrology was consulted. Urine culture was positive for multidrug resistant enetococcus and patient started on vancomycin. ID was consulted. CT abdomen and pelvis showed left cortical cyst decrease in size with resolution of air. GI was consulted and she underwent EGD which showed mild antral gastritis and small hiatal hernia. Urology consulted with concerns for continued infected renal cyst. Urology recommends repeat renal cyst drainage as the organism is different in this urine culture. This cannot be preformed until 08/02/23 due to eliquis and ASA use. Patient continued to have significant orthostatic hypotension Patient seen and examined at bedside. She does still have some nausea with eating but not with drinking. I watched her swallow and it more appears as a gagging. Vital signs reviewed General: nontoxic, no distress, appears at stated age Cardiovascular: S1S2 reg, no murmur, positive posterior tibial pulse bilateral, Lungs: Decreased bs bilateral, no rhonchi, no rales , no accessory muscle use Abdominal: soft, nontender to palpation, no guarding, no appreciable organomegaly Ext: no gross muscle atrophy, no edema b/l lower extremities, no contractures Neuro: CN II-XI grossly intact, no focal neuro deficits Psych: Alert, oriented, appropriate affect Assessment/Plan: Enterococcus urinary tract infection with history of recent left renal abscess End-stage renal disease on peritoneal dialysis Orthostatic hypotension maintained on Midodrine, presyncope Hypokalemia Intractable nausea vs swallowing difficulty s/p EGD, will consult speech - Nephrology note reviewed 08/01/23: Continue with fluids and PD exchanges. - ID note reviewed: await IR guided aspiration -Appropriate response to ACTH stim test. Adrenal insuficiency ruled out. - Plan is for IR guided drainage of renal cyst to assess for infection on 08/02/22-- ASA and eliquis remain on hold. - Sodium bicarb 650 mg oral twice daily - Midodrine 5 mg 3 times daily - Cefepime 1 g IV piggyback every 12 hours D #10 - once patietn accepted to [facility] will need Vascular consult for HD cath placement Gastritis - Protonix 40 mg IVP daily Constipation - lactulose 10 mg PO TID prn constipation Chronic: A-Fib Gout HDL h/o TIA Imaging: None new Data Review: Labs reviewed from today include basic metabolic profile which is remarkable for creatinine of 5. Cortisol levels reviewed from yesterday which show adequate response. DVT prophylaxis: Heparin Anticipated discharge date: Pending Clinical Course Anticipated discharge place: [facility] This dictation was prepared using [employer] voice recognition software. Though every attempt is made to correct errors during dictation some may still exist. Objective - Vital Signs Vital signs: Vital Signs Temp 97.7 F 08/01/23 07:15 Pulse 65 08/01/23 07:15 Resp 16 08/01/23 07:15 BP 117/73 08/01/23 07:15 Pulse Ox 96 08/01/23 07:15 FiO2 Intake & Output 07/31/23 08/01/23 08/01/23 18:59 06:59 18:59 Other: Voiding Method Toilet Toilet CAPD CAPD # Voids 1 - Labs CBC & Chem 7: 07/31/23 11:09 08/01/23 06:01 Labs: Abnormal Lab Results - Last 24 Hours (Table) 07/31/23 07/31/23 08/01/23 Range/Units 11:09 11:54 06:01 WBC 12.5 H (3.8-10.6) k/uL RBC 3.63 L (3.80-5.40) m/uL Hgb 10.7 L (11.4-16.0) gm/dL RDW 16.7 H (11.5-15.5) % Creatinine 5.0 H (0.6-1.5) mg/dL Est GFR (CKD-EPI) 8 L (>=60) BUN/Creatinine Ratio 4.88 L (12.00-20.00) Ratio Glucose 65 L (70-110) mg/dL Cortisol 24.6 H (3.1-22.4) UG/DL
--- NOTE | 2023-08-01 15:49 | P.PN ---
Subjective Progress Note Date: 08/01/23 Principal diagnosis: Reason for follow-up is UTI and concern for left renal abscess Patient is a 82-year female with a past medical history significant for end-stage renal disease on peritoneal dialysis recent admission to the hospital with left renal abscess status post CT-guided drainage culture positive for E. coli for the patient is completed about 6 weeks of antibiotic therapy presenting back to the hospital with intractable nausea and vomiting On today's evaluation that is 08/01/2023, the patient remains to be afebrile, the patient is breathing comfortably on room air without need for supplemental oxygen patient denies having any chest pain shortness of breath or cough, the patient denies any nausea vomiting tolerating her diet no abdominal pain and no diarrhea Patient did have white count of 12.5 and creatinine 4.70 as of yesterday no lab draw today Objective - Vital Signs Vital signs: Vital Signs Temp 98.1 F 08/01/23 12:20 Pulse 70 08/01/23 12:20 Resp 18 08/01/23 12:20 BP 118/70 08/01/23 12:20 Pulse Ox 98 08/01/23 12:20 FiO2 Intake & Output 07/31/23 08/01/23 08/01/23 18:59 06:59 18:59 Other: Voiding Method Toilet Toilet Toilet CAPD CAPD CAPD # Voids 1 - Exam GENERAL DESCRIPTION: An elderly female lying in bed in no distress RESPIRATORY SYSTEM: Unlabored breathing , decreased breath sounds at bases HEART: S1 S2 regular rate and rhythm , ABDOMEN: Soft , no tenderness EXTREMITIES: No edema feet - Labs CBC & Chem 7: 07/31/23 11:09 08/01/23 06:01 Labs: Abnormal Lab Results - Last 24 Hours (Table) 07/31/23 08/01/23 Range/Units 11:54 06:01 Creatinine 5.0 H (0.6-1.5) mg/dL Est GFR (CKD-EPI) 8 L (>=60) BUN/Creatinine Ratio 4.88 L (12.00-20.00) Ratio Glucose 65 L (70-110) mg/dL Cortisol 24.6 H (3.1-22.4) UG/DL Assessment and Plan (1) Failure of outpatient treatment Current Visit: Yes Status: Acute Code(s): Z78.9 - OTHER SPECIFIED HEALTH STATUS SNOMED Code(s): 053834852 (2) Leukocytosis Current Visit: No Status: Acute Code(s): D72.829 - ELEVATED WHITE BLOOD CELL COUNT, UNSPECIFIED SNOMED Code(s): 403928992 (3) Renal abscess Current Visit: No Status: Acute Code(s): N15.1 - RENAL AND PERINEPHRIC ABSCESS SNOMED Code(s): 9211128 Plan: 1patient presented to hospital with low-grade fever did have significant vomiting patient did have similar presentation last time when she was admitted to hospital and was diagnosed with a left renal abscess in this patient who s/p CT-guided drainage culture did grow E. coli that was sensitive to ceftriaxone and the patient has completed extensive course of IV followed by oral antibiotic therapy now presenting with similar symptoms concerning for likely left renal abscess 2CT abdominal pelvis shows left-sided renal abscess 3urology has been consulted and they are recommending IR drainage of this abscess , , Drainage procedure has been put on hold by IR because the patient has been on aspirin and is currently rescheduled for 08/02/2023. 4Patient to continue with the cefepime hopefully drainage procedure will be done tomorrow culture will be obtained and patient be able to go to senior living on IV cefepime consider placement of PICC line tomorrow as well as, as long as okay with nephrology Dictation was produced using [employer] dictation software. please excuse any grammatical, word or spelling errors. Time with Patient: Less than 30
[2023-08-01] MEDS: CALCIUM ACETATE 667 MG TAB PO SCH (18:07)
[2023-08-01] MEDS: DIALYSIS (PERIT 1.5%) 2,500 ML 30 G/2,000 ML BAG INTRAPERIT SCH (18:07)
[2023-08-01] MEDS: ATORVASTATIN 40 MG TAB PO SCH (21:21)
[2023-08-02] MEDS: DIALYSIS (PERIT 1.5%) 2,500 ML 30 G/2,000 ML BAG INTRAPERIT SCH ×4 (00:13→17:53)
[2023-08-02] MEDS: SODIUM CHLORIDE 0.9% 1,000 ML IV SCH ×2 (06:36→07:59)
[2023-08-02] MEDS: SODIUM BICARBONATE TAB 650 MG TAB PO SCH ×2 (08:41→21:42)
[2023-08-02] MEDS: PANTOPRAZOLE 40 MG/10 ML VIAL IV SCH (08:41)
[2023-08-02] MEDS: AMIODARONE 200 MG TAB PO SCH ×2 (08:41→21:42)
[2023-08-02] MEDS: FERROUS SULFATE 325 MG TAB PO SCH (08:41)
[2023-08-02] MEDS: allopurinoL 100 MG TAB PO SCH ×2 (08:41→21:42)
[2023-08-02] MEDS: CHOLECALCIFEROL 25 MCG (1000 IU) TABLET PO SCH (08:41)
[2023-08-02] MEDS: METOPROLOL TARTRATE 12.5 MG TAB PO SCH ×2 (08:41→21:42)
[2023-08-02] MEDS: MIDODRINE 5 MG TAB PO SCH ×3 (08:45→17:16)
[2023-08-02 08:48] LABS: HCT 29.3 % (37.2-46.3); HGB 9.3 g/dL (12.0-15.0); MCH 28.4 pg (27.0-32.0); MCHC 31.7 g/dL (32.0-37.0); MCV 89.6 FL (80.0-97.0); Mean Platelet Volume 9.8 FL (9.5-12.2); NRBC Per 100 WBC 0 X 10*3/uL (0.00-0.01); Platelet Count 316 X 10*3/uL (140-440); RBC 3.27 X 10*6/uL (4.10-5.20); RDW 17.1 % (11.5-14.5); WBC 9.25 X 10*3/uL (4.50-10.00)
[2023-08-02] MEDS: CEFEPIME 1 GM in SODIUM CHLORIDE 0.9% 50 ML IVPB SCH (08:51)
[2023-08-02 09:00] LABS: BUN/Creat Ratio 4.77 Ratio (12.00-20.00); Blood Urea Nitrogen 22.9 mg/dL (9.0-27.0); Calcium 9.2 mg/dL (8.7-10.3); Carbon Dioxide 24.7 mmol/L (21.6-31.8); Chloride 104 mmol/L (96-109); Glucose 69 mg/dL (70-110); Potassium 3.5 mmol/L (3.5-5.5); Sodium 139 mmol/L (135-145)
[2023-08-02] MEDS ORDERED: POTASSIUM CHLORIDE ER 20 MEQ TAB.ER PO STA (10:59)
--- NOTE | 2023-08-02 11:02 | P.PN ---
Subjective Patient is seen in follow-up for end-stage renal disease. She is maintained on peritoneal dialysis. No problems with PD exchanges. Blood pressure stable. Receiving IV fluids. No active complaints. Vital signs are stable. General: No acute distress. HEENT: Head exam is unremarkable. LUNGS: No audible rhonchi or wheezes. HEART: Rate and Rhythm are regular. ABDOMEN: Nontender. EXTREMITITES: Trace edema. Objective - Vital Signs Vital signs: Vital Signs Temp 97.8 F 08/02/23 07:14 Pulse 65 08/02/23 07:14 Resp 16 08/02/23 07:14 BP 113/78 08/02/23 07:14 Pulse Ox 97 08/02/23 07:14 FiO2 Intake & Output 08/01/23 08/02/23 08/02/23 18:59 06:59 18:59 Intake Total 240 590 Balance 240 590 Intake: Oral 240 590 Other: Voiding Method Toilet Toilet Toilet CAPD CAPD CAPD # Voids 3 # Bowel Movements 2 - Labs CBC & Chem 7: 08/02/23 05:22 08/02/23 05:22 Labs: Abnormal Lab Results - Last 24 Hours (Table) 08/02/23 08/02/23 Range/Units 05:22 05:22 RBC 3.27 L (4.10-5.20) X 10*6/uL Hgb 9.3 L (12.0-15.0) g/dL Hct 29.3 L (37.2-46.3) % MCHC 31.7 L (32.0-37.0) g/dL RDW 17.1 H (11.5-14.5) % Creatinine 4.8 H (0.6-1.5) mg/dL Est GFR (CKD-EPI) 9 L (>=60) BUN/Creatinine Ratio 4.77 L (12.00-20.00) Ratio Glucose 69 L (70-110) mg/dL Assessment and Plan Plan: Assessment: 1. End-stage renal disease maintained on peritoneal dialysis. 2. Left renal abscess. Urine culture positive for Enterobacter. On IV antibiotics. ID and urology following. Drainage scheduled for today. 3. Chronic kidney disease mineral bone disease maintained on calcitriol and PhosLo. Phosphorus level 2.9 dated 07/30/2023 - PhosLo decreased to be given with dinner only. 4. Hypotension maintained on midodrine. Component of hypovolemia. Improved. 5. Hypokalemia from PD losses and poor intake. Replaced. 6. Anemia of chronic kidney disease. Plan: Hep-Lock IV fluids. Maintain current PD exchanges. AM cortisol level not low. Lactulose as needed for constipation. Check iron studies. Patient may go to subacute rehab upon discharge. She will be transitioned to hemodialysis while at rehab and then can go back to PD once discharged from rehab. Permacath will be placed once a rehab placement confirmed.
--- NOTE | 2023-08-02 11:31 | CT ---
EXAMINATION TYPE: CT guided aspiration DATE OF EXAM: 08/02/2023 11:17 AM CLINICAL INDICATION:Female, 82 years old with history of left renal cyst aspiration; , [facility] COMPARISON: 07/21/2023. TECHNIQUE: CT DLP: 1205 mGycm, Automated exposure control for dose reduction was used. Contrast used: mL of , none Oral contrast used: none No sedation was utilized. PROCEDURE: Informed consent was obtained. Risks including bleeding, infection, damage to surrounding structures, and the potential need for further procedures as well as benefits were explained. All patient questi ons were answered. Initial CT images were taken which showed safest access to left renal abscess. The patient was prepp ed and draped. Under sterile technique with 1% lidocaine local anesthesia a 5 [place] one-step cathete r was inserted under CT guidance. 22 cc of fluid was drained. The specimen was reviewed by the patho logist during the procedure and sent to pathology for evaluation. The patient tolerated the procedure well without complication. The patient was transferred to recovery in stable condition. IMPRESSION: Successful aspiration of left renal abscess. 22 cc of fluid drained and sent for analysis.
--- NOTE | 2023-08-02 12:10 | P.PN ---
Subjective Progress Note Date: 08/02/23 Patient is an end-stage renal disease on peritoneal dialysis, atrial fibrillation, presenting with nausea and vomiting and lightheadedness. In the ED vitals were remarkable for pulse 100 and blood pressure 83/52. Laboratrory analysis was remarkable for white blood cell count of 19, sodium 133, potassium 4.2, creatinine 7.4. She was given 2 L of normal saline in the ER. She was admitted for dehydration, nausea, vomiting. Nephrology was consulted. Urine culture was positive for multidrug resistant enetococcus and patient started on vancomycin. ID was consulted. CT abdomen and pelvis showed left cortical cyst decrease in size with resolution of air. GI was consulted and she underwent EGD which showed mild antral gastritis and small hiatal hernia. Urology consulted with concerns for continued infected renal cyst. Urology recommends repeat renal cyst drainage as the organism is different in this urine culture. This cannot be preformed until 08/02/23 due to eliquis and ASA use. Patient continued to have significant orthostatic hypotension Patient seen and examined at bedside. She was able to eat a little last night. She is currently awaiting her radiology procedure. She has no other complaints at this time. She did have a bowel movement after lactulose yesterday. Vital signs reviewed General: nontoxic, no distress, appears at stated age Cardiovascular: S1S2 reg, no murmur, positive posterior tibial pulse bilateral, Lungs: Decreased bs bilateral, no rhonchi, no rales , no accessory muscle use Abdominal: soft, nontender to palpation, no guarding, no appreciable organomegaly Ext: no gross muscle atrophy, trace edema b/l lower extremities, no contractures Neuro: CN II-XI grossly intact, no focal neuro deficits Psych: Alert, oriented, appropriate affect Assessment/Plan: Enterococcus urinary tract infection with history of recent left renal abscess End-stage renal disease on peritoneal dialysis Orthostatic hypotension maintained on Midodrine, presyncope Hypokalemia Intractable nausea vs swallowing difficulty s/p EGD, await speech recs - case discussed with Dr. Hernandez. We'll continue with peritoneal dialysis. If approved for rehab will transition to hemodialysis. -Infectious disease note reviewed from yesterday. Continue with cefepime consider PEG placement if okay with nephrology - Plan is for IR guided drainage of renal cyst to assess for infection on 1/2/23-- ASA and eliquis remain on hold. - Sodium bicarb 650 mg oral twice daily - Midodrine 5 mg 3 times daily - Cefepime 1 g IV piggyback every 12 hours D #11 - once patient accepted to [facility] will need Vascular consult for HD cath placement -Case discussed with speech therapist will proceed with bedside swallow and if any additional concerns will proceed with modified barium tomorrow Gastritis - Protonix 40 mg IVP daily Constipation - lactulose 10 mg PO TID prn constipation Chronic: A-Fib Gout HDL h/o TIA Imaging: None new Data Review: Labs reviewed today include CBC and basic metabolic profile which are remarkable for hemoglobin 9.3, creatinine 4.8 and glucose of 69. DVT prophylaxis: Heparin Anticipated discharge date: Pending Clinical Course Anticipated discharge place: [facility] This dictation was prepared using [employer] voice recognition software. Though every attempt is made to correct errors during dictation some may still exist. Objective - Vital Signs Vital signs: Vital Signs Temp 97.8 F 08/02/23 07:14 Pulse 65 08/02/23 07:14 Resp 16 08/02/23 07:14 BP 113/78 08/02/23 07:14 Pulse Ox 97 08/02/23 07:14 FiO2 Intake & Output 08/01/23 08/02/23 08/02/23 18:59 06:59 18:59 Intake Total 240 590 Balance 240 590 Intake: Oral 240 590 Other: Voiding Method Toilet Toilet Toilet CAPD CAPD CAPD # Voids 3 # Bowel Movements 2 - Labs CBC & Chem 7: 08/02/23 05:22 08/02/23 05:22 Labs: Abnormal Lab Results - Last 24 Hours (Table) 08/02/23 08/02/23 Range/Units 05:22 05:22 RBC 3.27 L (4.10-5.20) X 10*6/uL Hgb 9.3 L (12.0-15.0) g/dL Hct 29.3 L (37.2-46.3) % MCHC 31.7 L (32.0-37.0) g/dL RDW 17.1 H (11.5-14.5) % Creatinine 4.8 H (0.6-1.5) mg/dL Est GFR (CKD-EPI) 9 L (>=60) BUN/Creatinine Ratio 4.77 L (12.00-20.00) Ratio Glucose 69 L (70-110) mg/dL
[2023-08-02] MEDS: ONDANSETRON 4 MG/2 ML VIAL IVP PRN (12:33)
[2023-08-02 15:46] LABS: % Iron Saturation 72.73 (12.00-45.00)
[2023-08-02] MEDS: CALCIUM ACETATE 667 MG TAB PO SCH (17:16)
[2023-08-02] MEDS: ATORVASTATIN 40 MG TAB PO SCH (21:42)
[2023-08-03] MEDS: DIALYSIS (PERIT 1.5%) 2,500 ML 30 G/2,000 ML BAG INTRAPERIT SCH ×2 (00:12→06:19)
[2023-08-03 08:22] LABS: Anisocytosis Slight; HCT 32.9 % (34.0-46.0); HGB 10.2 gm/dL (11.4-16.0); Hypochromasia Moderate; MCH 29.4 pg (25.0-35.0); MCHC 31.1 g/dL (31.0-37.0); MCV 94.4 fL (80.0-100.0); Mean Platelet Volume 7.6; Platelet Count 311 k/uL (150-450); RBC 3.48 m/uL (3.80-5.40); RDW 17.4 % (11.5-15.5); WBC 8.2 k/uL (3.8-10.6)
[2023-08-03 08:30] LABS: African American GFR (CKD) 10 (>60 ml/min/1.73 sqM); Anion Gap 8 mmol/L; Blood Urea Nitrogen 26 mg/dL (7-17); Calcium 9.3 mg/dL (8.4-10.2); Carbon Dioxide 24 mmol/L (22-30); Chloride 103 mmol/L (98-107); Glucose 92 mg/dL (74-99); Non-African American GFR(CKD) 9 (>60 ml/min/1.73 sqM); Potassium 3.4 mmol/L (3.5-5.1); Sodium 135 mmol/L (137-145)
[2023-08-03] MEDS: CEFEPIME 1 GM in SODIUM CHLORIDE 0.9% 50 ML IVPB SCH (08:47)
[2023-08-03] MEDS: ONDANSETRON 4 MG/2 ML VIAL IVP PRN ×2 (08:47→17:43)
[2023-08-03] MEDS: PANTOPRAZOLE 40 MG/10 ML VIAL IV SCH ×2 (08:47→20:02)
[2023-08-03] MEDS: allopurinoL 100 MG TAB PO SCH ×2 (08:49→20:02)
[2023-08-03] MEDS: METOPROLOL TARTRATE 12.5 MG TAB PO SCH ×2 (08:49→20:02)
[2023-08-03] MEDS: FERROUS SULFATE 325 MG TAB PO SCH (08:49)
[2023-08-03] MEDS: AMIODARONE 200 MG TAB PO SCH ×2 (08:49→20:02)
[2023-08-03] MEDS: MIDODRINE 5 MG TAB PO SCH ×3 (08:49→17:43)
[2023-08-03] MEDS: SODIUM BICARBONATE TAB 650 MG TAB PO SCH ×2 (08:49→20:02)
[2023-08-03] MEDS: CHOLECALCIFEROL 25 MCG (1000 IU) TABLET PO SCH (08:49)
[2023-08-03] MEDS ORDERED: POTASSIUM CHLORIDE ER 20 MEQ TAB.ER PO STA (10:22)
--- NOTE | 2023-08-03 10:26 | P.PN ---
Subjective Patient is seen in follow-up for end-stage renal disease. She is maintained on peritoneal dialysis. No problems with PD exchanges. Blood pressure stable. No active complaints. Vital signs are stable. General: No acute distress. HEENT: Head exam is unremarkable. LUNGS: No audible rhonchi or wheezes. HEART: Rate and Rhythm are regular. ABDOMEN: Nontender. EXTREMITITES: 1+ edema. Objective - Vital Signs Vital signs: Vital Signs Temp 97.9 F 08/03/23 07:03 Pulse 65 08/03/23 07:03 Resp 17 08/03/23 07:03 BP 132/79 08/03/23 07:03 Pulse Ox 95 08/03/23 07:03 FiO2 Intake & Output 08/02/23 08/03/23 08/03/23 18:59 06:59 18:59 Intake Total 50 Balance 50 Intake: Intake, IV Titration 50 Amount Cefepime 1 gm In Sodium 50 Chloride 0.9% 50 ml @ 12. 5 mls/hr IVPB DAILY [facility] Rx#:[id number] Other: Voiding Method Toilet Toilet CAPD CAPD # Voids 2 - Labs CBC & Chem 7: 08/03/23 08:16 08/03/23 08:16 Labs: Abnormal Lab Results - Last 24 Hours (Table) 08/02/23 08/03/23 08/03/23 Range/Units 05:22 08:16 08:16 RBC 3.48 L (3.80-5.40) m/uL Hgb 10.2 L (11.4-16.0) gm/dL Hct 32.9 L (34.0-46.0) % RDW 17.4 H (11.5-15.5) % Sodium 135 L (137-145) mmol/L Potassium 3.4 L (3.5-5.1) mmol/L BUN 26 H (7-17) mg/dL Creatinine 4.44 H (0.52-1.04) mg/dL TIBC 154 L (228-460) UG/DL % Saturation 72.73 H (12.00-45.00) Transferrin 110.0 L (204.0-354.0) mg/dL Ferritin 2690.0 H (10.0-291.0) ng/mL Assessment and Plan Plan: Assessment: 1. End-stage renal disease maintained on peritoneal dialysis. 2. Left renal abscess. Urine culture positive for Enterobacter. On IV antibiotics. ID and urology following. Status post drainage 08/02/2023. 3. Chronic kidney disease mineral bone disease maintained on calcitriol and PhosLo. Phosphorus level 2.9 dated 07/30/2023 - PhosLo decreased to be given with dinner only. 4. Hypotension maintained on midodrine. Component of hypovolemia. Improved. Now hypervolemic. 5. Hypokalemia from PD losses and poor intake and PD losses. 6. Anemia of chronic kidney disease. Iron replete. Plan: Change PD exchanges to 2.5% dextrose solution. Replace potassium. AM cortisol level not low. Lactulose as needed for constipation. Add Aranesp. Hold midodrine for systolic blood pressure greater than 115. Patient may go to subacute rehab upon discharge. She will be transitioned to hemodialysis while at rehab and then can go back to PD once discharged from rehab. Permacath will be placed once a rehab placement confirmed.
[2023-08-03] MEDS ORDERED: DARBEPOETIN ALFA 40 MCG/0.4 ML SYRINGE SQ SCH (12:00)
[2023-08-03] MEDS ORDERED: DIALYSIS (PERITONEAL) DEX 2.5% 2,500 ML BAG INTRAPERIT SCH (12:00)
[2023-08-03] MEDS: DIALYSIS (PERIT 2.5%) 2,000 ML 50 G/2,000 ML BAG INTRAPERIT SCH ×2 (12:38→17:43)
--- NOTE | 2023-08-03 13:25 | P.PN ---
Subjective Progress Note Date: 08/03/23 (delayed charting seen at 0730) Patient is an end-stage renal disease on peritoneal dialysis, atrial fibrillation, presenting with nausea and vomiting and lightheadedness. In the ED vitals were remarkable for pulse 100 and blood pressure 83/52. Laboratrory analysis was remarkable for white blood cell count of 19, sodium 133, potassium 4.2, creatinine 7.4. She was given 2 L of normal saline in the ER. She was admitted for dehydration, nausea, vomiting. Nephrology was consulted. Urine culture was positive for multidrug resistant enetococcus and patient started on vancomycin. ID was consulted. CT abdomen and pelvis showed left cortical cyst decrease in size with resolution of air. GI was consulted and she underwent EGD which showed mild antral gastritis and small hiatal hernia. Urology consulted with concerns for continued infected renal cyst. Urology recommends repeat renal cyst drainage as the organism is different in this urine culture. This cannot be preformed until 08/02/23 due to eliquis and ASA use. Patient continued to have significant orthostatic hypotension whiuch improved with midodrine and PD fluid adjustment. Patient underwent IR guided aspiration of renal cyst on 08/02/23 Patient seen and examined at bedside. Patient seen and examined at bedside. She has no complaints today. She did tolerate a little bit of her diet yesterday. We discussed performing esophageal by biometry in the outpatient setting, she is wondering if this is necessary. I did tell her she has persistent difficulty with swallowing she should consider esophageal manometry as it appears more to be what she is eating that she is having some catching of solids Vital signs reviewed General: nontoxic, no distress, appears at stated age Cardiovascular: S1S2 reg, no murmur, positive posterior tibial pulse bilateral, Lungs: Decreased bs bilateral, no rhonchi, no rales , no accessory muscle use Abdominal: soft, nontender to palpation, no guarding, no appreciable organomega ly Ext: no gross muscle atrophy, trace edema b/l lower extremities, no contractures Neuro: CN II-XI grossly intact, no focal neuro deficits Psych: Alert, oriented, appropriate affect Assessment/Plan: Enterococcus urinary tract infection with history of recent left renal abscess End-stage renal disease on peritoneal dialysis Orthostatic hypotension maintained on Midodrine, presyncope Hypokalemia Intractable nausea vs swallowing difficulty s/p EGD, await speech recs - case discussed with Dr. Hernandez. continue with PD, await rehab auth - Await further ID recs - IR guided drainage of renal cyst to assess for infection on 08/02/22, await results - resume eliquis and ASA if no sings of infection - Sodium bicarb 650 mg oral twice daily - Midodrine 5 mg 3 times daily - Cefepime 1 g IV piggyback every 12 hours D #12 - once patient accepted to SNF will need Vascular consult for HD cath placement -Speech notes reviewed: Normal oropharyngeal swallow with normal transit no overt signs of aspiration. Continuing regular diet with thin liquids. -Recommend outpatient esophageal manometry with GI. Gastritis - Protonix 40 mg IVP daily Constipation - lactulose 10 mg PO TID prn constipation Chronic: A-Fib Gout HDL h/o TIA - patient does not believe she wants to go to rehab of her family feel she would benefit. We are still awaiting final determination on authorization. Should she be approved for rehab she will need insertion of hemodialysis catheter and plans for hemodialysis versus peritoneal dialysis. Plan is for discharge once results are available of renal aspiration. Imaging: None new Data Review: Labs reviewed today include CBC and basic metabolic profile which are remarkable for hemoglobin 10.2, potassium 3.4 DVT prophylaxis: Heparin Anticipated discharge date: Pending Clinical Course Anticipated discharge place: [facility] This dictation was prepared using [employer] voice recognition software. Though every attempt is made to correct errors during dictation some may still exist. Objective - Vital Signs Vital signs: Vital Signs Temp 97.8 F 08/03/23 12:00 Pulse 69 08/03/23 12:00 Resp 14 08/03/23 12:00 BP 112/72 08/03/23 12:00 Pulse Ox 94 L 08/03/23 12:00 FiO2 Intake & Output 08/02/23 08/03/23 08/03/23 18:59 06:59 18:59 Intake Total 50 Balance 50 Intake: Intake, IV Titration 50 Amount Cefepime 1 gm In Sodium 50 Chloride 0.9% 50 ml @ 12. 5 mls/hr IVPB DAILY [facility] Rx#:[id number] Other: Voiding Method Toilet Toilet Toilet CAPD CAPD CAPD # Voids 2 - Labs CBC & Chem 7: 08/03/23 08:16 08/03/23 08:16 Labs: Abnormal Lab Results - Last 24 Hours (Table) 08/02/23 08/03/23 08/03/23 Range/Units 05:22 08:16 08:16 RBC 3.48 L (3.80-5.40) m/uL Hgb 10.2 L (11.4-16.0) gm/dL Hct 32.9 L (34.0-46.0) % RDW 17.4 H (11.5-15.5) % Sodium 135 L (137-145) mmol/L Potassium 3.4 L (3.5-5.1) mmol/L BUN 26 H (7-17) mg/dL Creatinine 4.44 H (0.52-1.04) mg/dL TIBC 154 L (228-460) UG/DL % Saturation 72.73 H (12.00-45.00) Transferrin 110.0 L (204.0-354.0) mg/dL Ferritin 2690.0 H (10.0-291.0) ng/mL Microbiology - Last 24 Hours (Table) 08/02/23 11:08 Gram Stain - Preliminary Aspirate
[2023-08-03] MEDS: CALCIUM ACETATE 667 MG TAB PO SCH (17:43)
[2023-08-03] MEDS: ATORVASTATIN 40 MG TAB PO SCH (20:02)
[2023-08-04] MEDS: DIALYSIS (PERIT 2.5%) 2,000 ML 50 G/2,000 ML BAG INTRAPERIT SCH ×5 (00:33→23:56)
[2023-08-04] MEDS: ONDANSETRON 4 MG/2 ML VIAL IVP PRN (06:35)
[2023-08-04] MEDS: AMIODARONE 200 MG TAB PO SCH ×2 (09:06→20:12)
[2023-08-04] MEDS: FERROUS SULFATE 325 MG TAB PO SCH (09:06)
[2023-08-04] MEDS: CHOLECALCIFEROL 25 MCG (1000 IU) TABLET PO SCH (09:06)
[2023-08-04] MEDS: SODIUM BICARBONATE TAB 650 MG TAB PO SCH ×2 (09:06→20:12)
[2023-08-04] MEDS: METOPROLOL TARTRATE 12.5 MG TAB PO SCH ×2 (09:06→20:12)
[2023-08-04] MEDS: allopurinoL 100 MG TAB PO SCH ×2 (09:06→20:12)
[2023-08-04] MEDS: MIDODRINE 5 MG TAB PO SCH ×3 (09:07→17:46)
[2023-08-04] MEDS: PANTOPRAZOLE 40 MG/10 ML VIAL IV SCH ×2 (09:07→20:13)
[2023-08-04 09:08] LABS: BUN/Creat Ratio 4.74 Ratio (12.00-20.00); Blood Urea Nitrogen 23.7 mg/dL (9.0-27.0); Carbon Dioxide 26.4 mmol/L (21.6-31.8); Chloride 104 mmol/L (96-109); Glucose 71 mg/dL (70-110); Potassium 3.4 mmol/L (3.5-5.5); Sodium 140 mmol/L (135-145)
[2023-08-04] MEDS: CEFEPIME 1 GM in SODIUM CHLORIDE 0.9% 50 ML IVPB SCH (09:13)
[2023-08-04 09:15] LABS: HCT 28.6 % (37.2-46.3); HGB 8.8 g/dL (12.0-15.0); MCH 28.2 pg (27.0-32.0); MCHC 30.8 g/dL (32.0-37.0); MCV 91.7 FL (80.0-97.0); Mean Platelet Volume 10.2 FL (9.5-12.2); NRBC Per 100 WBC 0 X 10*3/uL (0.00-0.01); Platelet Count 313 X 10*3/uL (140-440); RBC 3.12 X 10*6/uL (4.10-5.20); RDW 17.5 % (11.5-14.5)
[2023-08-04] MEDS ORDERED: POTASSIUM CHLORIDE ER 20 MEQ TAB.ER PO STA (11:34)
--- NOTE | 2023-08-04 11:35 | P.PN ---
Subjective Patient is seen in follow-up for end-stage renal disease. She is maintained on peritoneal dialysis. No problems with PD exchanges. Blood pressure stable. No active complaints. Vital signs are stable. General: No acute distress. HEENT: Head exam is unremarkable. LUNGS: No audible rhonchi or wheezes. HEART: Rate and Rhythm are regular. ABDOMEN: Nontender. EXTREMITITES: Trace edema. Objective - Vital Signs Vital signs: Vital Signs Temp 97.5 F L 08/04/23 07:08 Pulse 62 08/04/23 07:08 Resp 16 08/04/23 07:08 BP 113/67 08/04/23 07:08 Pulse Ox 95 08/04/23 07:08 FiO2 Intake & Output 08/03/23 08/04/23 08/04/23 18:59 06:59 18:59 Other: Voiding Method Toilet Toilet Toilet CAPD CAPD CAPD # Voids 1 2 # Bowel Movements 1 - Labs CBC & Chem 7: 08/04/23 05:30 08/04/23 05:30 Labs: Abnormal Lab Results - Last 24 Hours (Table) 08/04/23 08/04/23 Range/Units 05:30 05:30 RBC 3.12 L (4.10-5.20) X 10*6/uL Hgb 8.8 L (12.0-15.0) g/dL Hct 28.6 L (37.2-46.3) % MCHC 30.8 L (32.0-37.0) g/dL RDW 17.5 H (11.5-14.5) % Potassium 3.4 L (3.5-5.5) mmol/L Creatinine 5.0 H (0.6-1.5) mg/dL Est GFR (CKD-EPI) 8 L (>=60) BUN/Creatinine Ratio 4.74 L (12.00-20.00) Ratio Microbiology - Last 24 Hours (Table) 08/02/23 11:08 Gram Stain - Preliminary Aspirate Assessment and Plan Plan: Assessment: 1. End-stage renal disease maintained on peritoneal dialysis. 2. Left renal abscess. Urine culture positive for Enterobacter. On IV antibiotics. ID and urology following. Status post drainage 08/02/2023. 3. Chronic kidney disease mineral bone disease maintained on calcitriol and PhosLo. Phosphorus level 2.9 dated 07/30/2023 - PhosLo decreased to be given with dinner only. 4. Hypotension maintained on midodrine. Component of hypovolemia. Improved. Now hypervolemic. 5. Hypokalemia from PD losses and poor intake and PD losses. 6. Anemia of chronic kidney disease. Iron replete. On Aranesp. Plan: Maintain PD exchanges with 2.5% dextrose solution. Replace potassium. AM cortisol level not low. Lactulose as needed for constipation. Hold midodrine for systolic blood pressure greater than 115. Patient may go to subacute rehab upon discharge. She will be transitioned to hemodialysis while at rehab and then can go back to PD once discharged from rehab. Permacath will be placed once a rehab placement confirmed - now appears that she will be going home. Discussed with primary team.
--- NOTE | 2023-08-04 12:44 | P.PN ---
Subjective Progress Note Date: 08/04/23 82-year-old female with history of end-stage renal disease on peritoneal dialysis, atrial fibrillation, presenting with nausea and vomiting and lightheadedness. In the ED, temperature was 99.2, pulse 100, respiratory rate 18, blood pressure down to 83/52, saturating well on room air. White count 19, neutrophilic predominant, sodium 133, potassium 4.2, creatinine 7.4. She was given 2 L of normal saline in the ER. She is admitted for dehydration, nausea, vomiting. Nephrology was consulted. GI consulted for N/V, EGD showed mild antral gastritis and small hiatal hernia. Urinalysis positive for LE, patient started on vancomycin. ID consulted, UCx + Enterobacter, antibiotics switched to Cefepime. CT abdomen and pelvis showed left cortical abscess decrease in size. Urology consulted for possible nephrectomy, recommended IR drainage of abscess. 07/24 Patient was seen and examined. She reports feeling well. She has no complaints. CBC WBC 11.8, Hg 10.9, Hct 33.8. BMP Na 135, K 3.4, BUN 32, Cr 5.37. Mag 1.4. 07/25 Patient was seen and examined. One episode of N/V today. No other complaints. CBC WBC 11.2. BMP Na 135, K 3.2, Cl 97, BUN 28, Cr 5.08. Mag 2.0. Urology recommends conservative management at this time, nephrectomy if sepsis reoccurs again. 07/26 Patient was seem and examined. She had an episode of vomiting today after breakfast and morning medications. Frustrated at the length of hospital stay and frequent hospitalizations. IR consulted for aspiration of left renal abscess. CBC WBC 12, Hg 11.3. BMP Na 136, K 3.1, bicarb 20, BUN 25, Cr 5.16, glu 125. A-team called for lightheadedness and hypotension during PD. Patient placed on trendelenburg position and bolused 1L NS. Given Midodine. BP improved. Dizziness improving. Discussed with multiple family members. We are awaiting IR decision for left kidney cyst aspiration. Options presented including conservative management with aspiration and course of IV antibiotics with outpatient Urology referral. The other option is transferring the patient inpatient for surgical evaluation. Family prefers the first option. We will continue to update Adama Brewer (cell: [phone]) on the plan. 07/27 Patient was seen and examined. She had an episode of vomiting today after breakfast and morning medications. IR to evaluate for aspiration and drainage of left renal abscess. CBC Hg 11. BMP Na 135, K 3.2, BUN 23, Cr 4.92. Case discussed with family extensively at bedside. They have multiple complaints. Patient has not had a shower in the last couple of days (due to hypotensive episodes during PD). No one had informed them of the findings of antral gastritis after EGD. She continues to have nausea and vomiting with most meal intake. Patient had not been seen by PT today. Too much fluid being taken out during PD leading to severe hypotensive episodes. Frustrated about the delay of care (IR drainage of the left renal abscess - needs to be off ASA for 6 days). They are requesting transfer for higher level of care ([place] or [facility]). 07/28 Patient was seen and examined. She was able to tolerate the Ensure shake but vomited the banana this morning. With regard to the discussion with the family yesterday, there was consideration given to transferring the patient to a tertiary center. I discussed this possibility with the family member at bedside today. He feels patient is too weak for surgery and would probably benefit from SNF and outpatient Urology referral. IR is unable to do the drainage of the left renal abscess until the patient is off ASA for 6 days (she has already been off Eliquis). The earliest she can get the IR drainage is Aug 02. Even if a transfer is initiated, she would most likely have to wait until Tuesday. Patient has decided to stay at [facility] and wait until Tuesday. She will also need to convert to HD if the plan is to go to SNF. The plan was discussed with Dr. Dobbs. CBC Hg 10.4 Hct 33. BMP Na 136, BUN 23, Cr 5.03. 08/02 Patient underwent needle aspiration of the L renal mass on 08/02. 08/04 Patient was seen and examined. No vomiting today. Zofran helps with nausea. We discussed the possibility for esophageal motility issues and need for outpatient GI follow up for manometry. Her cultures are still pending. Patient has decided to go home instead of SNF. Seen at bedside with Dr. Hernandez. CBC Hg 8.8. BMP K 3.4, Cr 5. General: nontoxic, no distress, appears at stated age Derm: warm, dry, PD catheter clean, no erythema noted Head: atraumatic, normocephalic, symmetric Eyes: EOMI, no lid lag, anicteric sclera ENT: Nose and ears atraumatic Cardiovascular: S1S2 reg, no murmur, no edema Lungs: clear to auscultation bilateral, no rhonchi, no rales, no wheeze, no accessory muscle use Abdominal: soft, nontender to palpation, no guarding, no appreciable organomegaly Ext: no gross muscle atrophy, muscle strength muscle strength 5 out of 5 in all 4 extremities, no contractures Psych: Alert, oriented, appropriate affect Based on my assessment of this patient, this patient meets a moderate complexity level of care. Patient has acute diagnosis of Enterobacter UTI in the setting of left renal abscess which poses a threat to life or bodily function. Sepsis likely secondary to Enterobacter UTI/renal abscess: BCx negative. Cefepime 1g IV QD. ID on board. Underwent needle aspiration of the L renal mass on 08/02. Aspirate culture pending. Restart Eliquis and ASA. Urology recommends IR drainage and avoiding surgery for now. Presyncope: Midodrine 5 mg PO TID scheduled and 10 mg PO TID PRN for SBP < 110. Mild antral gastritis: IV pantoprazole 40 mg daily. Tums 1000 mg PO QID PRN N/V. Added Compazine 10 mg IV Q6H PRN. Outpatient GI follow up for esophageal manometry. Small hiatal hernia ESRD on peritoneal dialysis: Nephrology on board for PD. Will need to convert to HD if plan is for SNF. Chronic: A-Fib, Gout, HDL, h/o TIA Resolved: Leukocytosis, HypoK CODE STATUS: FULL CODE DVT Prophylaxis: Heparin SQ GI Prophylaxis: Protonix IV Designated medical POA if patient is not able to make medical decisions for themselves: I have reviewed the following professional services consultant notes: I have reviewed the results of the following tests: CBC, BMP I have ordered the following tests: CBC, BMP I have discussed the care of this patient with the following independent historian: I have independently interpreted the following test below: I have discussed the management of this patient with the following physician: Discussed with Dr. Hernandez at bedside. Objective - Vital Signs Vital signs: Vital Signs Temp 97.9 F 08/04/23 11:18 Pulse 68 08/04/23 11:18 Resp 16 08/04/23 11:18 BP 117/75 08/04/23 11:18 Pulse Ox 92 L 08/04/23 11:18 FiO2 Intake & Output 08/03/23 08/04/23 08/04/23 18:59 06:59 18:59 Other: Voiding Method Toilet Toilet Toilet CAPD CAPD CAPD # Voids 1 2 # Bowel Movements 1 - Labs CBC & Chem 7: 08/04/23 05:30 08/04/23 05:30 Labs: Abnormal Lab Results - Last 24 Hours (Table) 08/04/23 08/04/23 Range/Units 05:30 05:30 RBC 3.12 L (4.10-5.20) X 10*6/uL Hgb 8.8 L (12.0-15.0) g/dL Hct 28.6 L (37.2-46.3) % MCHC 30.8 L (32.0-37.0) g/dL RDW 17.5 H (11.5-14.5) % Potassium 3.4 L (3.5-5.5) mmol/L Creatinine 5.0 H (0.6-1.5) mg/dL Est GFR (CKD-EPI) 8 L (>=60) BUN/Creatinine Ratio 4.74 L (12.00-20.00) Ratio Microbiology - Last 24 Hours (Table) 08/02/23 11:08 Gram Stain - Preliminary Aspirate
--- NOTE | 2023-08-04 17:01 | P.PN ---
Subjective Progress Note Date: 08/02/23 Principal diagnosis: Reason for follow-up is UTI and concern for left renal abscess Patient is a 82-year female with a past medical history significant for end-stage renal disease on peritoneal dialysis recent admission to the hospital with left renal abscess status post CT-guided drainage culture positive for E. coli for the patient is completed about 6 weeks of antibiotic therapy presenting back to the hospital with intractable nausea and vomiting And there was evidence of left renal abscess/infected cyst, urine culture positive for Enterobacter blood culture negative, Patient is status post CT-guided aspiration of the left renal abscess 22 cc of fluid was drained and sent for analysis on 08/02/2023 On today's evaluation that is 08/02/2023 patient remains to be afebrile, the patient is breathing comfortably on room air, the patient denies chest pain shortness of breath or cough., The patient denies nausea or any further vomiting no abdominal pain or any diarrhea White count is 9.25, creatinine is 4.8 Objective - Vital Signs Vital signs: Vital Signs Temp 97.7 F 08/02/23 12:00 Pulse 61 08/02/23 12:00 Resp 14 08/02/23 12:00 BP 118/67 08/02/23 12:00 Pulse Ox 94 L 08/02/23 12:00 FiO2 Intake & Output 08/01/23 08/02/23 08/02/23 18:59 06:59 18:59 Intake Total 240 590 Balance 240 590 Intake: Oral 240 590 Other: Voiding Method Toilet Toilet Toilet CAPD CAPD CAPD # Voids 3 # Bowel Movements 2 - Exam GENERAL DESCRIPTION: An elderly female lying in bed in no distress RESPIRATORY SYSTEM: Unlabored breathing , decreased breath sounds at bases HEART: S1 S2 regular rate and rhythm , ABDOMEN: Soft , no tenderness EXTREMITIES: No edema feet - Labs CBC & Chem 7: 08/04/23 05:30 08/04/23 05:30 Labs: Abnormal Lab Results - Last 24 Hours (Table) 08/02/23 08/02/23 Range/Units 05:22 05:22 RBC 3.27 L (4.10-5.20) X 10*6/uL Hgb 9.3 L (12.0-15.0) g/dL Hct 29.3 L (37.2-46.3) % MCHC 31.7 L (32.0-37.0) g/dL RDW 17.1 H (11.5-14.5) % Creatinine 4.8 H (0.6-1.5) mg/dL Est GFR (CKD-EPI) 9 L (>=60) BUN/Creatinine Ratio 4.77 L (12.00-20.00) Ratio Glucose 69 L (70-110) mg/dL Assessment and Plan (1) Failure of outpatient treatment Current Visit: Yes Status: Acute Code(s): Z78.9 - OTHER SPECIFIED HEALTH STATUS SNOMED Code(s): 860909048 (2) Leukocytosis Current Visit: No Status: Acute Code(s): D72.829 - ELEVATED WHITE BLOOD CELL COUNT, UNSPECIFIED SNOMED Code(s): 157154012 (3) Renal abscess Current Visit: No Status: Acute Code(s): N15.1 - RENAL AND PERINEPHRIC ABSCESS SNOMED Code(s): 6938266 Plan: 1patient presented to hospital with low-grade fever did have significant vomiting patient did have similar presentation last time when she was admitted to hospital and was diagnosed with a left renal abscess in this patient who s/p CT-guided drainage culture did grow E. coli that was sensitive to ceftriaxone and the patient has completed extensive course of IV followed by oral antibiotic therapy now presenting with similar symptoms concerning for likely left renal abscess 2CT abdominal pelvis shows left-sided renal abscess 3urology has been consulted and they are recommending IR drainage of this abscess , 4patient is s/p CT-guided drainage of this abscess we will wait for the culture to finalize determine discharge antibiotics for now continue with cefepime Dictation was produced using [employer] software. please excuse any grammatical, word or spelling errors. Time with Patient: Less than 30
--- NOTE | 2023-08-04 17:03 | P.PN ---
Subjective Progress Note Date: 08/03/23 Principal diagnosis: Reason for follow-up is UTI and concern for left renal abscess Patient is a 82-year female with a past medical history significant for end-stage renal disease on peritoneal dialysis recent admission to the hospital with left renal abscess status post CT-guided drainage culture positive for E. coli for the patient is completed about 6 weeks of antibiotic therapy presenting back to the hospital with intractable nausea and vomiting And there was evidence of left renal abscess/infected cyst, urine culture positive for Enterobacter blood culture negative, Patient is status post CT-guided aspiration of the left renal abscess 22 cc of fluid was drained and sent for analysis on 08/02/2023 On today's evaluation that is 08/03/2023 patient continues to be afebrile the patient is breathing comfortably on room air without need for supplemental oxygen denies any chest pain shortness of breath or cough denies any further nausea vomiting abdominal pain or diarrhea. Patient did have white count of 8.2, creatinine is 4.44 fluid cultures currently pending Objective - Vital Signs Vital signs: Vital Signs Temp 97.9 F 08/03/23 07:03 Pulse 65 08/03/23 07:03 Resp 17 08/03/23 07:03 BP 132/79 08/03/23 07:03 Pulse Ox 95 08/03/23 07:03 FiO2 Intake & Output 08/02/23 08/03/23 08/03/23 18:59 06:59 18:59 Intake Total 50 Balance 50 Intake: Intake, IV Titration 50 Amount Cefepime 1 gm In Sodium 50 Chloride 0.9% 50 ml @ 12. 5 mls/hr IVPB DAILY [facility] Rx#:[id number] Other: Voiding Method Toilet Toilet Toilet CAPD CAPD CAPD # Voids 2 - Exam GENERAL DESCRIPTION: An elderly female lying in bed in no distress RESPIRATORY SYSTEM: Unlabored breathing , decreased breath sounds at bases HEART: S1 S2 regular rate and rhythm , ABDOMEN: Soft , no tenderness EXTREMITIES: No edema feet - Labs CBC & Chem 7: 08/04/23 05:30 08/04/23 05:30 Labs: Abnormal Lab Results - Last 24 Hours (Table) 08/02/23 08/03/23 08/03/23 Range/Units 05:22 08:16 08:16 RBC 3.48 L (3.80-5.40) m/uL Hgb 10.2 L (11.4-16.0) gm/dL Hct 32.9 L (34.0-46.0) % RDW 17.4 H (11.5-15.5) % Sodium 135 L (137-145) mmol/L Potassium 3.4 L (3.5-5.1) mmol/L BUN 26 H (7-17) mg/dL Creatinine 4.44 H (0.52-1.04) mg/dL TIBC 154 L (228-460) UG/DL % Saturation 72.73 H (12.00-45.00) Transferrin 110.0 L (204.0-354.0) mg/dL Ferritin 2690.0 H (10.0-291.0) ng/mL Assessment and Plan (1) Failure of outpatient treatment Current Visit: Yes Status: Acute Code(s): Z78.9 - OTHER SPECIFIED HEALTH STATUS SNOMED Code(s): 659418201 (2) Leukocytosis Current Visit: No Status: Acute Code(s): D72.829 - ELEVATED WHITE BLOOD CELL COUNT, UNSPECIFIED SNOMED Code(s): 811822752 (3) Renal abscess Current Visit: No Status: Acute Code(s): N15.1 - RENAL AND PERINEPHRIC ABSCESS SNOMED Code(s): 2414574 Plan: 1patient presented to hospital with low-grade fever did have significant vomiting patient did have similar presentation last time when she was admitted to hospital and was diagnosed with a left renal abscess in this patient who s/p CT-guided drainage culture did grow E. coli that was sensitive to ceftriaxone and the patient has completed extensive course of IV followed by oral antibiotic therapy now presenting with similar symptoms concerning for likely left renal abscess 2CT abdominal pelvis shows left-sided renal abscess 3urology has been consulted and they are recommending IR drainage of this abscess , Which was completed on 08/02/2023. 4patient to continue with the cefepime while waiting for the culture to finalize and monitor clinical course closely Dictation was produced using [employer] software. please excuse any grammatical, word or spelling errors. Time with Patient: Less than 30
--- NOTE | 2023-08-04 17:05 | P.PN ---
Subjective Progress Note Date: 08/04/23 Principal diagnosis: Reason for follow-up is UTI and concern for left renal abscess Patient is a 82-year female with a past medical history significant for end-stage renal disease on peritoneal dialysis recent admission to the hospital with left renal abscess status post CT-guided drainage culture positive for E. coli for the patient is completed about 6 weeks of antibiotic therapy presenting back to the hospital with intractable nausea and vomiting And there was evidence of left renal abscess/infected cyst, urine culture positive for Enterobacter blood culture negative, Patient is status post CT-guided aspiration of the left renal abscess 22 cc of fluid was drained and sent for analysis on 08/02/2023 On today's evaluation that is 08/04/2023 patient denies any fever or any chills the patient is breathing comfortably on room air, the patient denies any chest pain shortness of breath or cough denies any further nausea vomiting abdominal pain or diarrhea. Patient did have white count of 7.60, creatinine is 5.0 Objective - Vital Signs Vital signs: Vital Signs Temp 97.5 F L 08/04/23 07:08 Pulse 62 08/04/23 07:08 Resp 16 08/04/23 07:08 BP 113/67 08/04/23 07:08 Pulse Ox 95 08/04/23 07:08 FiO2 Intake & Output 08/03/23 08/04/23 08/04/23 18:59 06:59 18:59 Other: Voiding Method Toilet Toilet Toilet CAPD CAPD CAPD # Voids 1 2 # Bowel Movements 1 - Exam GENERAL DESCRIPTION: An elderly female lying in bed in no distress RESPIRATORY SYSTEM: Unlabored breathing , decreased breath sounds at bases HEART: S1 S2 regular rate and rhythm , ABDOMEN: Soft , no tenderness EXTREMITIES: No edema feet - Labs CBC & Chem 7: 08/04/23 05:30 08/04/23 05:30 Labs: Abnormal Lab Results - Last 24 Hours (Table) 08/04/23 08/04/23 Range/Units 05:30 05:30 RBC 3.12 L (4.10-5.20) X 10*6/uL Hgb 8.8 L (12.0-15.0) g/dL Hct 28.6 L (37.2-46.3) % MCHC 30.8 L (32.0-37.0) g/dL RDW 17.5 H (11.5-14.5) % Potassium 3.4 L (3.5-5.5) mmol/L Creatinine 5.0 H (0.6-1.5) mg/dL Est GFR (CKD-EPI) 8 L (>=60) BUN/Creatinine Ratio 4.74 L (12.00-20.00) Ratio Microbiology - Last 24 Hours (Table) 08/02/23 11:08 Gram Stain - Preliminary Aspirate Assessment and Plan (1) Failure of outpatient treatment Current Visit: Yes Status: Acute Code(s): Z78.9 - OTHER SPECIFIED HEALTH STATUS SNOMED Code(s): 461557240 (2) Leukocytosis Current Visit: No Status: Acute Code(s): D72.829 - ELEVATED WHITE BLOOD CELL COUNT, UNSPECIFIED SNOMED Code(s): 995687923 (3) Renal abscess Current Visit: No Status: Acute Code(s): N15.1 - RENAL AND PERINEPHRIC ABSCESS SNOMED Code(s): 3721685 Plan: 1patient presented to hospital with low-grade fever did have significant vomi ting patient did have similar presentation last time when she was admitted to hospital and was diagnosed with a left renal abscess in this patient who s/p CT- guided drainage culture did grow E. coli that was sensitive to ceftriaxone and the patient has completed extensive course of IV followed by oral antibiotic therapy now presenting with similar symptoms concerning for likely left renal abscess 2CT abdominal pelvis shows left-sided renal abscess 3urology has been consulted and they are recommending IR drainage of this abscess , Which was completed on 08/02/2023. 4patient did get a midline currently getting cefepime we will plan for a 2-week course of cefepime and planning for repeat CT at the end of antibiotic therapy to make sure complete resolution of the abscess multiple questions concern answered Dictation was produced using [employer] software. please excuse any grammatical, word or spelling errors. Time with Patient: Less than 30
[2023-08-04] MEDS: CALCIUM ACETATE 667 MG TAB PO SCH (17:46)
[2023-08-04] MEDS: APIXABAN 2.5 MG TABLET PO SCH (20:12)
[2023-08-04] MEDS: ATORVASTATIN 40 MG TAB PO SCH (20:12)
[2023-08-05] MEDS: DIALYSIS (PERIT 2.5%) 2,000 ML 50 G/2,000 ML BAG INTRAPERIT SCH (05:55)
[2023-08-05] MEDS: POTASSIUM CHLORIDE ER 10 MEQ TAB.ER.PRT PO SCH (08:40)
[2023-08-05] MEDS: allopurinoL 100 MG TAB PO SCH ×2 (08:40→22:12)
[2023-08-05] MEDS: PANTOPRAZOLE 40 MG/10 ML VIAL IV SCH ×2 (08:41→22:13)
[2023-08-05] MEDS: SODIUM BICARBONATE TAB 650 MG TAB PO SCH ×2 (08:41→22:13)
[2023-08-05] MEDS: FERROUS SULFATE 325 MG TAB PO SCH (08:41)
[2023-08-05] MEDS: MIDODRINE 5 MG TAB PO SCH ×3 (08:41→18:05)
[2023-08-05] MEDS: APIXABAN 2.5 MG TABLET PO SCH ×2 (08:41→22:12)
[2023-08-05] MEDS: AMIODARONE 200 MG TAB PO SCH ×2 (08:41→22:12)
[2023-08-05] MEDS: METOPROLOL TARTRATE 12.5 MG TAB PO SCH ×2 (08:41→22:14)
[2023-08-05] MEDS: CHOLECALCIFEROL 25 MCG (1000 IU) TABLET PO SCH (08:41)
[2023-08-05 09:00] LABS: Anisocytosis Slight; HCT 34.6 % (34.0-46.0); Hypochromasia Slight; MCH 29.5 pg (25.0-35.0); MCHC 31.6 g/dL (31.0-37.0); MCV 93.4 fL (80.0-100.0); Mean Platelet Volume 7.8; Platelet Count 355 k/uL (150-450); RBC 3.71 m/uL (3.80-5.40); WBC 7.8 k/uL (3.8-10.6)
[2023-08-05 09:16] LABS: African American GFR (CKD) 9 (>60 ml/min/1.73 sqM); Anion Gap 9 mmol/L; Blood Urea Nitrogen 24 mg/dL (7-17); Calcium 9.4 mg/dL (8.4-10.2); Carbon Dioxide 29 mmol/L (22-30); Chloride 101 mmol/L (98-107); Glucose 90 mg/dL (74-99); Non-African American GFR(CKD) 8 (>60 ml/min/1.73 sqM); Potassium 3.4 mmol/L (3.5-5.1); Sodium 139 mmol/L (137-145)
[2023-08-05] MEDS ORDERED: POTASSIUM CHLORIDE ER 20 MEQ TAB.ER PO STA (11:27)
--- NOTE | 2023-08-05 11:28 | P.PN ---
Subjective Patient is seen in follow-up for end-stage renal disease. She is maintained on peritoneal dialysis. No problems with PD exchanges. Patient states her blood pressure dropped and she went to the bathroom this morning but improved shortly after. Currently has no active complaints. Vital signs are stable. General: No acute distress. HEENT: Head exam is unremarkable. LUNGS: No audible rhonchi or wheezes. HEART: Rate and Rhythm are regular. ABDOMEN: Nontender. EXTREMITITES: Trace edema. Objective - Vital Signs Vital signs: Vital Signs Temp 97.6 F 08/05/23 07:10 Pulse 58 L 08/05/23 07:10 Resp 16 08/05/23 07:10 BP 113/71 08/05/23 08:59 Pulse Ox 96 08/05/23 07:10 FiO2 Intake & Output 08/04/23 08/05/23 08/05/23 18:59 06:59 18:59 Intake Total 50 200 Balance 50 200 Intake: Intake, IV Titration 50 Amount Cefepime 1 gm In Sodium 50 Chloride 0.9% 50 ml @ 12. 5 mls/hr IVPB DAILY [facility] Rx#:[id number] Oral 200 Other: Voiding Method Toilet Toilet Toilet CAPD CAPD CAPD # Voids 3 1 # Bowel Movements 1 - Labs CBC & Chem 7: 08/05/23 08:31 08/05/23 08:31 Labs: Abnormal Lab Results - Last 24 Hours (Table) 08/05/23 08/05/23 Range/Units 08:31 08:31 RBC 3.71 L (3.80-5.40) m/uL Hgb 11.0 L (11.4-16.0) gm/dL RDW 18.0 H (11.5-15.5) % Potassium 3.4 L (3.5-5.1) mmol/L BUN 24 H (7-17) mg/dL Creatinine 4.95 H (0.52-1.04) mg/dL Assessment and Plan Plan: Assessment: 1. End-stage renal disease maintained on peritoneal dialysis. 2. Left renal abscess. Urine culture positive for Enterobacter. On IV a ntibiotics. ID and urology following. Status post drainage 08/02/2023. 3. Chronic kidney disease mineral bone disease maintained on calcitriol and PhosLo. Phosphorus level 2.9 dated 07/30/2023 - PhosLo decreased to be given with dinner only. 4. Hypotension maintained on midodrine. Component of hypovolemia. Improved. Now hypervolemic. 5. Hypokalemia from PD losses and poor intake and PD losses. 6. Anemia of chronic kidney disease. Iron replete. On Aranesp. Plan: Change PD exchanges back to 1.5% extra solution as blood pressure low. Check orthostatics. If positive, will give fluid bolus. Maintain midodrine. Hold midodrine for systolic blood pressure greater than 115. Continue with potassium replacement. AM cortisol level not low. Lactulose as needed for constipation. Patient may go to subacute rehab upon discharge. She will be transitioned to hemodialysis while at rehab and then can go back to PD once discharged from rehab. Permacath will be placed once a rehab placement confirmed - now appears that she will be going home. Discussed with primary team.
[2023-08-05] MEDS: DIALYSIS (PERIT 1.5%) 2,500 ML 30 G/2,000 ML BAG INTRAPERIT SCH ×2 (11:50→17:43)
[2023-08-05] MEDS ORDERED: CEFEPIME 1 GM VIAL IM SCH (12:30)
[2023-08-05] MEDS: CEFEPIME 1 GM in SODIUM CHLORIDE 0.9% 50 ML IVPB SCH (12:39)
[2023-08-05] MEDS ORDERED: SODIUM CHLORIDE 0.9% 500 ML 500 ML IV ONE (13:16)
--- NOTE | 2023-08-05 13:16 | P.PN ---
Subjective Progress Note Date: 08/05/23 82-year-old female with history of end-stage renal disease on peritoneal dialysis, atrial fibrillation, presenting with nausea and vomiting and lightheadedness. In the ED, temperature was 99.2, pulse 100, respiratory rate 18, blood pressure down to 83/52, saturating well on room air. White count 19, neutrophilic predominant, sodium 133, potassium 4.2, creatinine 7.4. She was given 2 L of normal saline in the ER. She is admitted for dehydration, nausea, vomiting. Nephrology was consulted. GI consulted for N/V, EGD showed mild antral gastritis and small hiatal hernia. Urinalysis positive for LE, patient started on vancomycin. ID consulted, UCx + Enterobacter, antibiotics switched to Cefepime. CT abdomen and pelvis showed left cortical abscess decrease in size. Urology consulted for possible nephrectomy, recommended IR drainage of abscess. 07/24 Patient was seen and examined. She reports feeling well. She has no complaints. CBC WBC 11.8, Hg 10.9, Hct 33.8. BMP Na 135, K 3.4, BUN 32, Cr 5.37. Mag 1.4. 07/25 Patient was seen and examined. One episode of N/V today. No other complaints. CBC WBC 11.2. BMP Na 135, K 3.2, Cl 97, BUN 28, Cr 5.08. Mag 2.0. Urology recommends conservative management at this time, nephrectomy if sepsis reoccurs again. 07/26 Patient was seem and examined. She had an episode of vomiting today after breakfast and morning medications. Frustrated at the length of hospital stay and frequent hospitalizations. IR consulted for aspiration of left renal abscess. CBC WBC 12, Hg 11.3. BMP Na 136, K 3.1, bicarb 20, BUN 25, Cr 5.16, glu 125. A-team called for lightheadedness and hypotension during PD. Patient placed on trendelenburg position and bolused 1L NS. Given Midodine. BP improved. Dizziness improving. Discussed with multiple family members. We are awaiting IR decision for left kidney cyst aspiration. Options presented including conservative management with aspiration and course of IV antibiotics with outpatient Urology referral. The other option is transferring the patient inpatient for surgical evaluation. Family prefers the first option. We will continue to update Adama Brewer (cell: [phone]) on the plan. 07/27 Patient was seen and examined. She had an episode of vomiting today after breakfast and morning medications. IR to evaluate for aspiration and drainage of left renal abscess. CBC Hg 11. BMP Na 135, K 3.2, BUN 23, Cr 4.92. Case discussed with family extensively at bedside. They have multiple complaints. Patient has not had a shower in the last couple of days (due to hypotensive episodes during PD). No one had informed them of the findings of antral gastritis after EGD. She continues to have nausea and vomiting with most meal intake. Patient had not been seen by PT today. Too much fluid being taken out during PD leading to severe hypotensive episodes. Frustrated about the delay of care (IR drainage of the left renal abscess - needs to be off ASA for 6 days). They are requesting transfer for higher level of care ([place] or [facility]). 07/28 Patient was seen and examined. She was able to tolerate the Ensure shake but vomited the banana this morning. With regard to the discussion with the family yesterday, there was consideration given to transferring the patient to a tertiary center. I discussed this possibility with the family member at bedside today. He feels patient is too weak for surgery and would probably benefit from SNF and outpatient Urology referral. IR is unable to do the drainage of the left renal abscess until the patient is off ASA for 6 days (she has already been off Eliquis). The earliest she can get the IR drainage is Aug 02. Even if a transfer is initiated, she would most likely have to wait until Tuesday. Patient has decided to stay at [facility] and wait until Tuesday. She will also need to convert to HD if the plan is to go to SNF. The plan was discussed with Dr. Dobbs. CBC Hg 10.4 Hct 33. BMP Na 136, BUN 23, Cr 5.03. 08/02 Patient underwent needle aspiration of the L renal mass on 08/02. 08/04 Patient was seen and examined. No vomiting today. Zofran helps with nausea. We discussed the possibility for esophageal motility issues and need for outpatient GI follow up for manometry. Her cultures are still pending. Patient has decided to go home instead of SNF. Seen at bedside with Dr. Hernandez. CBC Hg 8.8. BMP K 3.4, Cr 5. 08/05 Patient was seen and examined. Had a presyncopal episode while in the bathroom, quickly recovered, now at baseline. Discussed with Dr. Hernandez, recommends change PD exchanges back to 1.5%. Plans to obtain midline. Discussed with Dr. Murguia, recommends 2 weeks of Cefepime on discharge. CBC Hg 11. BMP K 3.4, BUN 24, Cr 4.95. General: nontoxic, no distress, appears at stated age Derm: warm, dry, PD catheter clean, no erythema noted Head: atraumatic, normocephalic, symmetric Eyes: EOMI, no lid lag, anicteric sclera ENT: Nose and ears atraumatic Cardiovascular: S1S2 reg, no murmur, no edema Lungs: clear to auscultation bilateral, no rhonchi, no rales, no wheeze, no accessory muscle use Abdominal: soft, nontender to palpation, no guarding, no appreciable organomegaly Ext: no gross muscle atrophy, muscle strength muscle strength 5 out of 5 in all 4 extremities, no contractures Psych: Alert, oriented, appropriate affect Based on my assessment of this patient, this patient meets a moderate complexity level of care. Patient has acute diagnosis of Enterobacter UTI in the setting of left renal abscess which poses a threat to life or bodily function. Sepsis likely secondary to Enterobacter UTI/renal abscess: BCx negative. Cefepime 1g IV QD. ID on board. Underwent needle aspiration of the L renal mass on 08/02. Aspirate culture pending. Restart Eliquis and ASA. Urology recommends IR drainage and avoiding surgery for now. Presyncope: Midodrine 5 mg PO TID scheduled and 10 mg PO TID PRN for SBP < 110. 500 cc NS bolus ordered. Mild antral gastritis: IV pantoprazole 40 mg daily. Tums 1000 mg PO QID PRN N/V. Added Compazine 10 mg IV Q6H PRN. Outpatient GI follow up for esophageal manometry. Small hiatal hernia ESRD on peritoneal dialysis: Nephrology on board for PD. Will need to convert to HD if plan is for SNF. Chronic: A-Fib, Gout, HDL, h/o TIA Resolved: Leukocytosis, HypoK CODE STATUS: FULL CODE DVT Prophylaxis: Heparin SQ GI Prophylaxis: Protonix IV Designated medical POA if patient is not able to make medical decisions for themselves: I have reviewed the following healthcare management consultant notes: I have reviewed the results of the following tests: CBC, BMP I have ordered the following tests: CBC, BMP I have discussed the care of this patient with the following independent historian: I have independently interpreted the following test below: I have discussed the management of this patient with the following physician: Discussed with Dr. Hernandez and Dr. Murguia. Objective - Vital Signs Vital signs: Vital Signs Temp 97.7 F 08/05/23 12:32 Pulse 60 08/05/23 12:32 Resp 18 08/05/23 12:32 BP 107/69 08/05/23 12:32 Pulse Ox 95 08/05/23 12:32 FiO2 Intake & Output 08/04/23 08/05/23 08/05/23 18:59 06:59 18:59 Intake Total 50 200 Balance 50 200 Intake: Intake, IV Titration 50 Amount Cefepime 1 gm In Sodium 50 Chloride 0.9% 50 ml @ 12. 5 mls/hr IVPB DAILY [facility] Rx#:[id number] Oral 200 Other: Voiding Method Toilet Toilet Toilet CAPD CAPD CAPD # Voids 3 1 # Bowel Movements 1 - Labs CBC & Chem 7: 08/05/23 08:31 08/05/23 08:31 Labs: Abnormal Lab Results - Last 24 Hours (Table) 08/05/23 08/05/23 Range/Units 08:31 08:31 RBC 3.71 L (3.80-5.40) m/uL Hgb 11.0 L (11.4-16.0) gm/dL RDW 18.0 H (11.5-15.5) % Potassium 3.4 L (3.5-5.1) mmol/L BUN 24 H (7-17) mg/dL Creatinine 4.95 H (0.52-1.04) mg/dL
[2023-08-05] MEDS: MIDODRINE 5 MG TAB PO PRN (15:46)
--- NOTE | 2023-08-05 16:01 | P.PN ---
Subjective Progress Note Date: 08/05/23 Principal diagnosis: Reason for follow-up is UTI and concern for left renal abscess Patient is a 82-year female with a past medical history significant for end-stage renal disease on peritoneal dialysis recent admission to the hospital with left renal abscess status post CT-guided drainage culture positive for E. coli for the patient is completed about 6 weeks of antibiotic therapy presenting back to the hospital with intractable nausea and vomiting And there was evidence of left renal abscess/infected cyst, urine culture positive for Enterobacter blood culture negative, Patient is status post CT-guided aspiration of the left renal abscess 22 cc of fluid was drained and sent for analysis on 08/02/2023 On today's evaluation that is 08/05/2023, the patient denies having any fever or any chills patient is breathing comfortably on room air denies any chest pain shortness of breath or cough no sputum production, the patient denies nausea vomiting no abdominal pain no diarrhea. Did have episode of orthostatic hypotension in the bathroom this morning The patient white count of 7.8, creatinine 4.95 aspirate cultures currently pending Objective - Vital Signs Vital signs: Vital Signs Temp 97.6 F 08/05/23 07:10 Pulse 58 L 08/05/23 07:10 Resp 16 08/05/23 07:10 BP 113/71 08/05/23 08:59 Pulse Ox 96 08/05/23 07:10 FiO2 Intake & Output 08/04/23 08/05/23 08/05/23 18:59 06:59 18:59 Intake Total 50 200 Balance 50 200 Intake: Intake, IV Titration 50 Amount Cefepime 1 gm In Sodium 50 Chloride 0.9% 50 ml @ 12. 5 mls/hr IVPB DAILY [facility] Rx#:[id number] Oral 200 Other: Voiding Method Toilet Toilet CAPD CAPD # Voids 3 1 # Bowel Movements 1 - Exam GENERAL DESCRIPTION: An elderly female lying in bed in no distress RESPIRATORY SYSTEM: Unlabored breathing , decreased breath sounds at bases HEART: S1 S2 regular rate and rhythm , ABDOMEN: Soft , no tenderness EXTREMITIES: No edema feet - Labs CBC & Chem 7: 08/05/23 08:31 08/05/23 08:31 Labs: Abnormal Lab Results - Last 24 Hours (Table) 08/05/23 08/05/23 Range/Units 08:31 08:31 RBC 3.71 L (3.80-5.40) m/uL Hgb 11.0 L (11.4-16.0) gm/dL RDW 18.0 H (11.5-15.5) % Potassium 3.4 L (3.5-5.1) mmol/L BUN 24 H (7-17) mg/dL Creatinine 4.95 H (0.52-1.04) mg/dL Assessment and Plan (1) Failure of outpatient treatment Current Visit: Yes Status: Acute Code(s): Z78.9 - OTHER SPECIFIED HEALTH STATUS SNOMED Code(s): 692807638 (2) Leukocytosis Current Visit: No Status: Acute Code(s): D72.829 - ELEVATED WHITE BLOOD CELL COUNT, UNSPECIFIED SNOMED Code(s): 902411690 (3) Renal abscess Current Visit: No Status: Acute Code(s): N15.1 - RENAL AND PERINEPHRIC ABSCESS SNOMED Code(s): 1561357 Plan: 1patient presented to hospital with low-grade fever did have significant vomiting patient did have similar presentation last time when she was admitted to hospital and was diagnosed with a left renal abscess in this patient who s/p CT-guided drainage culture did grow E. coli that was sensitive to ceftriaxone and the patient has completed extensive course of IV followed by oral antibiotic therapy now presenting with similar symptoms concerning for likely left renal abscess 2CT abdominal pelvis shows left-sided renal abscess 3urology has been consulted and they are recommending IR drainage of this abscess , Which was completed on 08/02/2023. 4patient to continue with the cefepime plan for another 10 days of IV cefepime on discharge prescription provided to the manager case and will benefit from a repeat CAT scan at the end of antibiotic therapy Dictation was produced using [employer] dictation software. please excuse any grammatical, word or spelling errors. Time with Patient: Less than 30
[2023-08-05] MEDS: CALCIUM ACETATE 667 MG TAB PO SCH (17:43)
[2023-08-05] MEDS: ATORVASTATIN 40 MG TAB PO SCH (22:12)
[2023-08-06] MEDS: DIALYSIS (PERIT 1.5%) 2,500 ML 30 G/2,000 ML BAG INTRAPERIT SCH ×4 (00:23→17:52)
[2023-08-06] MEDS: LACTULOSE 20 GM/30 ML CUP PO PRN ×2 (01:11→08:59)
[2023-08-06 06:18] LABS: Anisocytosis Slight; HCT 29.9 % (34.0-46.0); Hypochromasia Slight; MCHC 33.3 g/dL (31.0-37.0); MCV 93.1 fL (80.0-100.0); Platelet Count 289 k/uL (150-450); RBC 3.21 m/uL (3.80-5.40); RDW 18.2 % (11.5-15.5); WBC 7.3 k/uL (3.8-10.6)
[2023-08-06 06:37] LABS: African American GFR (CKD) 9 (>60 ml/min/1.73 sqM); Anion Gap 7 mmol/L; Blood Urea Nitrogen 29 mg/dL (7-17); Calcium 8.9 mg/dL (8.4-10.2); Carbon Dioxide 29 mmol/L (22-30); Chloride 100 mmol/L (98-107); Glucose 78 mg/dL (74-99); Non-African American GFR(CKD) 8 (>60 ml/min/1.73 sqM); Potassium 3.5 mmol/L (3.5-5.1); Sodium 136 mmol/L (137-145)
[2023-08-06] MEDS: POTASSIUM CHLORIDE ER 10 MEQ TAB.ER.PRT PO SCH (08:54)
[2023-08-06] MEDS: SODIUM BICARBONATE TAB 650 MG TAB PO SCH ×2 (08:54→21:57)
[2023-08-06] MEDS: AMIODARONE 200 MG TAB PO SCH ×2 (08:54→21:57)
[2023-08-06] MEDS: CEFEPIME 1 GM in SODIUM CHLORIDE 0.9% 50 ML IVPB SCH (08:55)
[2023-08-06] MEDS: CHOLECALCIFEROL 25 MCG (1000 IU) TABLET PO SCH (08:55)
[2023-08-06] MEDS: FERROUS SULFATE 325 MG TAB PO SCH (08:55)
[2023-08-06] MEDS: APIXABAN 2.5 MG TABLET PO SCH ×2 (08:55→21:57)
[2023-08-06] MEDS: allopurinoL 100 MG TAB PO SCH ×2 (08:55→21:57)
[2023-08-06] MEDS: METOPROLOL TARTRATE 12.5 MG TAB PO SCH ×2 (08:55→22:16)
[2023-08-06] MEDS: MIDODRINE 5 MG TAB PO SCH ×3 (08:55→16:44)
[2023-08-06] MEDS: PANTOPRAZOLE 40 MG/10 ML VIAL IV SCH ×2 (08:56→21:57)
[2023-08-06] MEDS ORDERED: POTASSIUM CHLORIDE ER 20 MEQ TAB.ER PO STA (11:57)
--- NOTE | 2023-08-06 11:58 | P.PN ---
Subjective Patient is seen in follow-up for end-stage renal disease. She is maintained on peritoneal dialysis. No problems with PD exchanges. Blood pressure stable. Resting in bed. Family present at bedside. Vital signs are stable. General: No acute distress. HEENT: Head exam is unremarkable. LUNGS: No audible rhonchi or wheezes. HEART: Rate and Rhythm are regular. ABDOMEN: Nontender. EXTREMITITES: No edema. Objective - Vital Signs Vital signs: Vital Signs Temp 97.8 F 08/06/23 07:26 Pulse 72 08/06/23 08:45 Resp 16 08/06/23 08:45 BP 107/69 08/06/23 07:26 Pulse Ox 94 L 08/06/23 07:26 FiO2 Intake & Output 08/05/23 08/06/23 08/06/23 18:59 06:59 18:59 Other: Voiding Method Toilet Toilet Toilet CAPD CAPD CAPD # Voids 1 3 1 # Bowel Movements 1 - Labs CBC & Chem 7: 08/06/23 05:37 08/06/23 05:37 Labs: Abnormal Lab Results - Last 24 Hours (Table) 08/06/23 08/06/23 Range/Units 05:37 05:37 RBC 3.21 L (3.80-5.40) m/uL Hgb 10.0 L (11.4-16.0) gm/dL Hct 29.9 L (34.0-46.0) % RDW 18.2 H (11.5-15.5) % Sodium 136 L (137-145) mmol/L BUN 29 H (7-17) mg/dL Creatinine 4.77 H (0.52-1.04) mg/dL Microbiology - Last 24 Hours (Table) 08/02/23 11:08 Gram Stain - Preliminary Aspirate Body Fluid Culture - Preliminary Assessment and Plan Plan: Assessment: 1. End-stage renal disease maintained on peritoneal dialysis. 2. Left renal abscess. Urine culture positive for Enterobacter. On IV antibiotics. ID and urology following. Status post drainage 08/02/2023. 3. Chronic kidney disease mineral bone disease maintained on calcitriol and PhosLo. Phosphorus level 2.9 dated 07/30/2023 - PhosLo decreased to be given with dinner only. 4. Hypotension maintained on midodrine. Component of hypovolemia. Improved. 5. Hypokalemia from PD losses and poor intake and PD losses. 6. Anemia of chronic kidney disease. Iron replete. On Aranesp. Plan: Maintain current PD exchanges with 1.5% dextrose solution. Maintain midodrine. Hold midodrine for systolic blood pressure greater than 115. Continue with potassium replacement. AM cortisol level not low. Lactulose as needed for constipation. Patient may go to subacute rehab upon discharge. She will be transitioned to hemodialysis while at rehab and then can go back to PD once discharged from rehab. Permacath will be placed once a rehab placement confirmed - now appears that she will be going home. Discussed with primary team and family present at bedside.
[2023-08-06] MEDS: MAG HYDROX/AL HYDROX/SIMETH 30 ML CUP PO PRN (12:03)
[2023-08-06] MEDS: ONDANSETRON 4 MG/2 ML VIAL IVP PRN (13:58)
--- NOTE | 2023-08-06 15:07 | P.PN ---
Subjective Progress Note Date: 08/06/23 82-year-old female with history of end-stage renal disease on peritoneal dialysis, atrial fibrillation, presenting with nausea and vomiting and lightheadedness. In the ED, temperature was 99.2, pulse 100, respiratory rate 18, blood pressure down to 83/52, saturating well on room air. White count 19, neutrophilic predominant, sodium 133, potassium 4.2, creatinine 7.4. She was given 2 L of normal saline in the ER. She is admitted for dehydration, nausea, vomiting. Nephrology was consulted. GI consulted for N/V, EGD showed mild antral gastritis and small hiatal hernia. Urinalysis positive for LE, patient started on vancomycin. ID consulted, UCx + Enterobacter, antibiotics switched to Cefepime. CT abdomen and pelvis showed left cortical abscess decrease in size. Urology consulted for possible nephrectomy, recommended IR drainage of abscess. 07/24 Patient was seen and examined. She reports feeling well. She has no complaints. CBC WBC 11.8, Hg 10.9, Hct 33.8. BMP Na 135, K 3.4, BUN 32, Cr 5.37. Mag 1.4. 07/25 Patient was seen and examined. One episode of N/V today. No other complaints. CBC WBC 11.2. BMP Na 135, K 3.2, Cl 97, BUN 28, Cr 5.08. Mag 2.0. Urology recommends conservative management at this time, nephrectomy if sepsis reoccurs again. 07/26 Patient was seem and examined. She had an episode of vomiting today after breakfast and morning medications. Frustrated at the length of hospital stay and frequent hospitalizations. IR consulted for aspiration of left renal abscess. CBC WBC 12, Hg 11.3. BMP Na 136, K 3.1, bicarb 20, BUN 25, Cr 5.16, glu 125. A-team called for lightheadedness and hypotension during PD. Patient placed on trendelenburg position and bolused 1L NS. Given Midodine. BP improved. Dizziness improving. Discussed with multiple family members. We are awaiting IR decision for left kidney cyst aspiration. Options presented including conservative management with aspiration and course of IV antibiotics with outpatient Urology referral. The other option is transferring the patient inpatient for surgical evaluation. Family prefers the first option. We will continue to update Adama Brewer (cell: [phone]) on the plan. 07/27 Patient was seen and examined. She had an episode of vomiting today after breakfast and morning medications. IR to evaluate for aspiration and drainage of left renal abscess. CBC Hg 11. BMP Na 135, K 3.2, BUN 23, Cr 4.92. Case discussed with family extensively at bedside. They have multiple complaints. Patient has not had a shower in the last couple of days (due to hypotensive episodes during PD). No one had informed them of the findings of antral gastritis after EGD. She continues to have nausea and vomiting with most meal intake. Patient had not been seen by PT today. Too much fluid being taken out during PD leading to severe hypotensive episodes. Frustrated about the delay of care (IR drainage of the left renal abscess - needs to be off ASA for 6 days). They are requesting transfer for higher level of care ([place] or [facility]). 07/28 Patient was seen and examined. She was able to tolerate the Ensure shake but vomited the banana this morning. With regard to the discussion with the family yesterday, there was consideration given to transferring the patient to a tertiary center. I discussed this possibility with the family member at bedside today. He feels patient is too weak for surgery and would probably benefit from SNF and outpatient Urology referral. IR is unable to do the drainage of the left renal abscess until the patient is off ASA for 6 days (she has already been off Eliquis). The earliest she can get the IR drainage is Aug 02. Even if a transfer is initiated, she would most likely have to wait until Tuesday. Patient has decided to stay at [facility] and wait until Tuesday. She will also need to convert to HD if the plan is to go to SNF. The plan was discussed with Dr. Dobbs. CBC Hg 10.4 Hct 33. BMP Na 136, BUN 23, Cr 5.03. 08/02 Patient underwent needle aspiration of the L renal mass on 08/02. 08/04 Patient was seen and examined. No vomiting today. Zofran helps with nausea. We discussed the possibility for esophageal motility issues and need for outpatient GI follow up for manometry. Her cultures are still pending. Patient has decided to go home instead of SNF. Seen at bedside with Dr. Hernandez. CBC Hg 8.8. BMP K 3.4, Cr 5. 08/05 Patient was seen and examined. Had a presyncopal episode while in the bathroom, quickly recovered, now at baseline. Discussed with Dr. Hernandez, recommends change PD exchanges back to 1.5%. Plans to obtain midline. Discussed with Dr. Murguia, recommends 2 weeks of Cefepime on discharge. CBC Hg 11. BMP K 3.4, BUN 24, Cr 4.95. 08/06 Patient was seen and examined. No more dizziness after being switched to 1.5% PD exchanges. Questions answered for family at bedside. Discussed with Dr. Hernandez. CBC Hg 10. BMP Na 136, BUN 29, Cr 4.77. Apparently, patient was supposed to get a midline on 08/02 but instead got an AccuCath in the L cephalic. This is not suitable for 10 days of IV antibiotics. She will need a midline placed on Tuesday. Patient encouraged to ambulate. General: nontoxic, no distress, appears at stated age Derm: warm, dry, PD catheter clean, no erythema noted Head: atraumatic, normocephalic, symmetric Eyes: EOMI, no lid lag, anicteric sclera ENT: Nose and ears atraumatic Cardiovascular: S1S2 reg, no murmur, no edema Lungs: clear to auscultation bilateral, no rhonchi, no rales, no wheeze, no accessory muscle use Abdominal: soft, nontender to palpation, no guarding, no appreciable organomegaly Ext: no gross muscle atrophy, muscle strength muscle strength 5 out of 5 in all 4 extremities, no contractures Psych: Alert, oriented, appropriate affect Based on my assessment of this patient, this patient meets a moderate complexity level of care. Patient has acute diagnosis of Enterobacter UTI in the setting of left renal abscess which poses a threat to life or bodily function. Sepsis likely secondary to Enterobacter UTI/renal abscess: BCx negative. Cefepime 1g IV QD. ID on board. Underwent needle aspiration of the L renal mass on 08/02. Aspirate culture pending. Restart Eliquis and ASA. Urology recommends IR drainage and avoiding surgery for now. Presyncope: Midodrine 5 mg PO TID scheduled and 10 mg PO TID PRN for SBP < 110. Mild antral gastritis: IV pantoprazole 40 mg daily. Tums 1000 mg PO QID PRN N/V. Added Compazine 10 mg IV Q6H PRN. Outpatient GI follow up for esophageal manometry. Small hiatal hernia ESRD on peritoneal dialysis: Nephrology on board for PD. Will need to convert to HD if plan is for SNF. Chronic: A-Fib, Gout, HDL, h/o TIA Resolved: Leukocytosis, HypoK CODE STATUS: FULL CODE DVT Prophylaxis: Heparin SQ GI Prophylaxis: Protonix IV Designated medical POA if patient is not able to make medical decisions for themselves: I have reviewed the following research consultant notes: I have reviewed the results of the following tests: CBC, BMP I have ordered the following tests: CBC, BMP I have discussed the care of this patient with the following independent historian: I have independently interpreted the following test below: I have discussed the management of this patient with the following physician: Discussed with Dr. Hernandez Objective - Vital Signs Vital signs: Vital Signs Temp 98.0 F 08/06/23 13:28 Pulse 131 H 08/06/23 13:28 Resp 16 08/06/23 13:28 BP 126/84 08/06/23 13:28 Pulse Ox 94 L 08/06/23 13:28 FiO2 Intake & Output 08/05/23 08/06/23 08/06/23 18:59 06:59 18:59 Other: Voiding Method Toilet Toilet Toilet CAPD CAPD CAPD # Voids 1 3 1 # Bowel Movements 2 # Emeses 1 - Labs CBC & Chem 7: 08/06/23 05:37 08/06/23 05:37 Labs: Abnormal Lab Results - Last 24 Hours (Table) 08/06/23 08/06/23 Range/Units 05:37 05:37 RBC 3.21 L (3.80-5.40) m/uL Hgb 10.0 L (11.4-16.0) gm/dL Hct 29.9 L (34.0-46.0) % RDW 18.2 H (11.5-15.5) % Sodium 136 L (137-145) mmol/L BUN 29 H (7-17) mg/dL Creatinine 4.77 H (0.52-1.04) mg/dL Microbiology - Last 24 Hours (Table) 08/02/23 11:08 Gram Stain - Preliminary Aspirate Body Fluid Culture - Preliminary
[2023-08-06] MEDS: CALCIUM ACETATE 667 MG TAB PO SCH (16:46)
[2023-08-06] MEDS: ATORVASTATIN 40 MG TAB PO SCH (21:57)
[2023-08-07] MEDS: DIALYSIS (PERIT 1.5%) 2,500 ML 30 G/2,000 ML BAG INTRAPERIT SCH ×4 (00:19→17:54)
[2023-08-07] MEDS: APIXABAN 2.5 MG TABLET PO SCH ×2 (10:17→22:03)
[2023-08-07] MEDS: METOPROLOL TARTRATE 12.5 MG TAB PO SCH ×2 (10:17→22:04)
[2023-08-07] MEDS: MIDODRINE 5 MG TAB PO SCH ×3 (10:17→17:54)
[2023-08-07] MEDS: CHOLECALCIFEROL 25 MCG (1000 IU) TABLET PO SCH (10:17)
[2023-08-07] MEDS: POTASSIUM CHLORIDE ER 10 MEQ TAB.ER.PRT PO SCH (10:17)
[2023-08-07] MEDS: FERROUS SULFATE 325 MG TAB PO SCH (10:17)
[2023-08-07] MEDS: allopurinoL 100 MG TAB PO SCH ×2 (10:17→22:03)
[2023-08-07] MEDS: CEFEPIME 1 GM in SODIUM CHLORIDE 0.9% 50 ML IVPB SCH (10:18)
[2023-08-07] MEDS: PANTOPRAZOLE 40 MG/10 ML VIAL IV SCH ×2 (10:18→22:03)
[2023-08-07] MEDS: ONDANSETRON 4 MG/2 ML VIAL IVP PRN (10:37)
[2023-08-07] MEDS: SODIUM BICARBONATE TAB 650 MG TAB PO SCH (10:37)
--- NOTE | 2023-08-07 11:19 | P.PN ---
Subjective Patient is seen in follow-up for end-stage renal disease. She is maintained on peritoneal dialysis. No problems with PD exchanges. Blood pressure stable. Resting in bed. No dizziness or falls. Vital signs are stable. General: No acute distress. HEENT: Head exam is unremarkable. LUNGS: No audible rhonchi or wheezes. HEART: Rate and Rhythm are regular. ABDOMEN: Nontender. EXTREMITITES: No edema. Objective - Vital Signs Vital signs: Vital Signs Temp 98.2 F 08/07/23 07:26 Pulse 71 08/07/23 07:26 Resp 16 08/07/23 07:26 BP 110/75 08/07/23 07:26 Pulse Ox 96 08/07/23 07:26 FiO2 Intake & Output 08/06/23 08/07/23 08/07/23 18:59 06:59 18:59 Other: Voiding Method Toilet Toilet CAPD CAPD # Voids 1 # Bowel Movements 1 # Emeses 1 - Labs CBC & Chem 7: 08/06/23 05:37 08/06/23 05:37 Labs: Microbiology - Last 24 Hours (Table) 08/02/23 11:08 Gram Stain - Final Aspirate Body Fluid Culture - Final Assessment and Plan Plan: Assessment: 1. End-stage renal disease maintained on peritoneal dialysis. 2. Left renal abscess. Urine culture positive for Enterobacter. On IV antibiotics. ID and urology following. Status post drainage 08/02/2023. 3. Chronic kidney disease mineral bone disease maintained on calcitriol and PhosLo. Phosphorus level 2.9 dated 07/30/2023 - PhosLo decreased to be given with dinner only. 4. Hypotension maintained on midodrine. Component of hypovolemia. Improved. 5. Hypokalemia from PD losses and poor intake and PD losses. Replaced. On maintenance supplementation. 6. Anemia of chronic kidney disease. Iron replete. On Aranesp. Plan: Maintain current PD exchanges with 1.5% dextrose solution. Maintain midodrine. Hold midodrine for systolic blood pressure greater than 115. Continue with potassium replacement. AM cortisol level not low. Lactulose as needed for constipation. Decrease bicarb to once daily.
--- NOTE | 2023-08-07 12:07 | P.PN ---
Subjective Progress Note Date: 08/07/23 82-year-old female with history of end-stage renal disease on peritoneal dialysis, atrial fibrillation, presenting with nausea and vomiting and lightheadedness. In the ED, temperature was 99.2, pulse 100, respiratory rate 18, blood pressure down to 83/52, saturating well on room air. White count 19, neutrophilic predominant, sodium 133, potassium 4.2, creatinine 7.4. She was given 2 L of normal saline in the ER. She is admitted for dehydration, nausea, vomiting. Nephrology was consulted. GI consulted for N/V, EGD showed mild antral gastritis and small hiatal hernia. Urinalysis positive for LE, patient started on vancomycin. ID consulted, UCx + Enterobacter, antibiotics switched to Cefepime. CT abdomen and pelvis showed left cortical abscess decrease in size. Urology consulted for possible nephrectomy, recommended IR drainage of abscess. 07/24 Patient was seen and examined. She reports feeling well. She has no complaints. CBC WBC 11.8, Hg 10.9, Hct 33.8. BMP Na 135, K 3.4, BUN 32, Cr 5.37. Mag 1.4. 07/25 Patient was seen and examined. One episode of N/V today. No other complaints. CBC WBC 11.2. BMP Na 135, K 3.2, Cl 97, BUN 28, Cr 5.08. Mag 2.0. Urology recommends conservative management at this time, nephrectomy if sepsis reoccurs again. 07/26 Patient was seem and examined. She had an episode of vomiting today after breakfast and morning medications. Frustrated at the length of hospital stay and frequent hospitalizations. IR consulted for aspiration of left renal abscess. CBC WBC 12, Hg 11.3. BMP Na 136, K 3.1, bicarb 20, BUN 25, Cr 5.16, glu 125. A-team called for lightheadedness and hypotension during PD. Patient placed on trendelenburg position and bolused 1L NS. Given Midodine. BP improved. Dizziness improving. Discussed with multiple family members. We are awaiting IR decision for left kidney cyst aspiration. Options presented including conservative management with aspiration and course of IV antibiotics with outpatient Urology referral. The other option is transferring the patient inpatient for surgical evaluation. Family prefers the first option. We will continue to update Adama Brewer (cell: [phone]) on the plan. 07/27 Patient was seen and examined. She had an episode of vomiting today after breakfast and morning medications. IR to evaluate for aspiration and drainage of left renal abscess. CBC Hg 11. BMP Na 135, K 3.2, BUN 23, Cr 4.92. Case discussed with family extensively at bedside. They have multiple complaints. Patient has not had a shower in the last couple of days (due to hypotensive episodes during PD). No one had informed them of the findings of antral gastritis after EGD. She continues to have nausea and vomiting with most meal intake. Patient had not been seen by PT today. Too much fluid being taken out during PD leading to severe hypotensive episodes. Frustrated about the delay of care (IR drainage of the left renal abscess - needs to be off ASA for 6 days). They are requesting transfer for higher level of care ([facility] or [facility]). 07/28 Patient was seen and examined. She was able to tolerate the Ensure shake but vomited the banana this morning. With regard to the discussion with the family yesterday, there was consideration given to transferring the patient to a tertiary center. I discussed this possibility with the family member at bedside today. He feels patient is too weak for surgery and would probably benefit from SNF and outpatient Urology referral. IR is unable to do the drainage of the left renal abscess until the patient is off ASA for 6 days (she has already been off Eliquis). The earliest she can get the IR drainage is Aug 02. Even if a transfer is initiated, she would most likely have to wait until Tuesday. Patient has decided to stay at [facility] and wait until Tuesday. She will also need to convert to HD if the plan is to go to SNF. The plan was discussed with Dr. Dobbs. CBC Hg 10.4 Hct 33. BMP Na 136, BUN 23, Cr 5.03. 08/02 Patient underwent needle aspiration of the L renal mass on 08/02. 08/04 Patient was seen and examined. No vomiting today. Zofran helps with nausea. We discussed the possibility for esophageal motility issues and need for outpatient GI follow up for manometry. Her cultures are still pending. Patient has decided to go home instead of SNF. Seen at bedside with Dr. Hernandez. CBC Hg 8.8. BMP K 3.4, Cr 5. 08/05 Patient was seen and examined. Had a presyncopal episode while in the bathroom, quickly recovered, now at baseline. Discussed with Dr. Hernandez, recommends change PD exchanges back to 1.5%. Plans to obtain midline. Discussed with Dr. Murguia, recommends 2 weeks of Cefepime on discharge. CBC Hg 11. BMP K 3.4, BUN 24, Cr 4.95. 08/06 Patient was seen and examined. No more dizziness after being switched to 1.5% PD exchanges. Questions answered for family at bedside. Discussed with Dr. Hernandez. CBC Hg 10. BMP Na 136, BUN 29, Cr 4.77. Apparently, patient was supposed to get a midline on 08/02 but instead got an AccuCath in the L cephalic. This is not suitable for 10 days of IV antibiotics. She will need a midline placed on Tuesday. Patient encouraged to ambulate. 08/07 Patient was seen and examined. States that she threw up breakfast. Took a shower this morning. Plans for midline tomorrow. Encouraged to ambulate. General: nontoxic, no distress, appears at stated age Derm: warm, dry, PD catheter clean, no erythema noted Head: atraumatic, normocephalic, symmetric Eyes: EOMI, no lid lag, anicteric sclera ENT: Nose and ears atraumatic Cardiovascular: S1S2 reg, no murmur, no edema Lungs: clear to auscultation bilateral, no rhonchi, no rales, no wheeze, no accessory muscle use Abdominal: soft, nontender to palpation, no guarding, no appreciable organomegaly Ext: no gross muscle atrophy, muscle strength muscle strength 5 out of 5 in all 4 extremities, no contractures Psych: Alert, oriented, appropriate affect Based on my assessment of this patient, this patient meets a moderate complexity level of care. Patient has acute diagnosis of Enterobacter UTI in the setting of left renal abscess which poses a threat to life or bodily function. Sepsis likely secondary to Enterobacter UTI/renal abscess: BCx negative. Cefe pime 1g IV QD. ID on board. Underwent needle aspiration of the L renal mass on 08/02. Aspirate culture negative. Restart Eliquis and ASA. Urology recommends IR drainage and avoiding surgery for now. Presyncope: Midodrine 5 mg PO TID scheduled and 10 mg PO TID PRN for SBP < 110. Mild antral gastritis: IV pantoprazole 40 mg daily. Tums 1000 mg PO QID PRN N/V. Added Compazine 10 mg IV Q6H PRN. Outpatient GI follow up for esophageal manometry. Small hiatal hernia ESRD on peritoneal dialysis: Nephrology on board for PD. Will need to convert to HD if plan is for SNF. Chronic: A-Fib, Gout, HDL, h/o TIA Resolved: Leukocytosis, HypoK CODE STATUS: FULL CODE DVT Prophylaxis: Heparin SQ GI Prophylaxis: Protonix IV Designated medical POA if patient is not able to make medical decisions for themselves: I have reviewed the following managed services sales consultant notes: I have reviewed the results of the following tests: I have ordered the following tests: I have discussed the care of this patient with the following independent historian: Discussed with RN. I have independently interpreted the following test below: I have discussed the management of this patient with the following physician: Discussed with Dr. Hernandez. Objective - Vital Signs Vital signs: Vital Signs Temp 98.2 F 08/07/23 07:26 Pulse 71 08/07/23 07:26 Resp 16 08/07/23 07:26 BP 110/75 08/07/23 07:26 Pulse Ox 96 08/07/23 07:26 FiO2 Intake & Output 08/06/23 08/07/23 08/07/23 18:59 06:59 18:59 Other: Voiding Method Toilet Toilet CAPD CAPD # Voids 1 # Bowel Movements 1 # Emeses 1 - Labs CBC & Chem 7: 08/06/23 05:37 08/06/23 05:37 Labs: Microbiology - Last 24 Hours (Table) 08/02/23 11:08 Gram Stain - Final Aspirate Body Fluid Culture - Final
[2023-08-07] MEDS: AMIODARONE 200 MG TAB PO SCH ×2 (12:32→22:03)
[2023-08-07] MEDS: CALCIUM ACETATE 667 MG TAB PO SCH (17:54)
--- NOTE | 2023-08-07 18:07 | P.PN ---
Subjective Progress Note Date: 08/07/23 Principal diagnosis: Reason for follow-up is UTI and concern for left renal abscess Patient is a 82-year female with a past medical history significant for end-stage renal disease on peritoneal dialysis recent admission to the hospital with left renal abscess status post CT-guided drainage culture positive for E. coli for the patient is completed about 6 weeks of antibiotic therapy presenting back to the hospital with intractable nausea and vomiting And there was evidence of left renal abscess/infected cyst, urine culture positive for Enterobacter blood culture negative, Patient is status post CT-guided aspiration of the left renal abscess 22 cc of fluid was drained and sent for analysis on 08/02/2023 On today's evaluation that is 08/07/2023 the patient continues to be afebrile, the patient is breathing comfortably on room air, the patient denies having any chest pain the patient denies any chest pain shortness of breath or cough, the patient denies having any abdominal pain no nausea no vomiting no diarrhea feeling better Patient white count is 7.3 and a creatinine of 4.77 as of yesterday no lab draw today Objective - Vital Signs Vital signs: Vital Signs Temp 98.0 F 08/07/23 12:28 Pulse 63 08/07/23 12:28 Resp 16 08/07/23 12:28 BP 111/69 08/07/23 12:28 Pulse Ox 95 08/07/23 12:28 FiO2 Intake & Output 08/06/23 08/07/23 08/07/23 18:59 06:59 18:59 Other: Voiding Method Toilet Toilet Toilet CAPD CAPD CAPD # Voids 1 # Bowel Movements 1 # Emeses 1 - Exam GENERAL DESCRIPTION: An elderly female lying in bed in no distress RESPIRATORY SYSTEM: Unlabored breathing , decreased breath sounds at bases HEART: S1 S2 regular rate and rhythm , ABDOMEN: Soft , no tenderness EXTREMITIES: No edema feet - Labs CBC & Chem 7: 08/06/23 05:37 08/06/23 05:37 Labs: Microbiology - Last 24 Hours (Table) 08/02/23 11:08 Gram Stain - Final Aspirate Body Fluid Culture - Final Assessment and Plan (1) Failure of outpatient treatment Current Visit: Yes Status: Acute Code(s): Z78.9 - OTHER SPECIFIED HEALTH STATUS SNOMED Code(s): 970723793 (2) Leukocytosis Current Visit: No Status: Acute Code(s): D72.829 - ELEVATED WHITE BLOOD CELL COUNT, UNSPECIFIED SNOMED Code(s): 076788718 (3) Renal abscess Current Visit: No Status: Acute Code(s): N15.1 - RENAL AND PERINEPHRIC ABSCESS SNOMED Code(s): 8765244 Plan: 1patient presented to hospital with low-grade fever did have significant vomiting patient did have similar presentation last time when she was admitted to hospital and was diagnosed with a left renal abscess in this patient who s/p CT-guided drainage culture did grow E. coli that was sensitive to ceftriaxone and the patient has completed extensive course of IV followed by oral antibiotic therapy now presenting with similar symptoms concerning for likely left renal abscess 2CT abdominal pelvis shows left-sided renal abscess 3urology has been consulted and they are recommending IR drainage of this abscess , Which was completed on 08/02/2023. 4patient seem to have shown overall clinical improvement, the patient remains to be afebrile white count has been normal culture has been negative we will keep the patient on cefepime for another 7 to 10 days on discharge and will benefit from repeat CT in 2 weeks to make sure complete resolution of the abscess Dictation was produced using Simplebook[employer] dictation software. please excuse any grammatical, word or spelling errors. Time with Patient: Less than 30
--- NOTE | 2023-08-07 18:07 | P.PN ---
Subjective Progress Note Date: 08/06/23 Principal diagnosis: Reason for follow-up is UTI and concern for left renal abscess Patient is a 82-year female with a past medical history significant for end-stage renal disease on peritoneal dialysis recent admission to the hospital with left renal abscess status post CT-guided drainage culture positive for E. coli for the patient is completed about 6 weeks of antibiotic therapy presenting back to the hospital with intractable nausea and vomiting And there was evidence of left renal abscess/infected cyst, urine culture positive for Enterobacter blood culture negative, Patient is status post CT-guided aspiration of the left renal abscess 22 cc of fluid was drained and sent for analysis on 08/02/2023 On today's evaluation that is 08/06/2023 the patient remains to be afebrile the patient is breathing comfortably on room air without need for supplemental oxygen, the patient denies any chest pain, the patient denies chest pain shortness of breath or cough, patient denies having nausea no vomiting the patient abdominal pain and no diarrhea Patient white count is 7.3 and a creatinine of 4.77 Objective - Vital Signs Vital signs: Vital Signs Temp 97.8 F 08/06/23 07:26 Pulse 72 08/06/23 07:26 Resp 16 08/06/23 07:26 BP 107/69 08/06/23 07:26 Pulse Ox 94 L 08/06/23 07:26 FiO2 Intake & Output 08/05/23 08/06/23 08/06/23 18:59 06:59 18:59 Other: Voiding Method Toilet Toilet CAPD CAPD # Voids 1 3 - Exam GENERAL DESCRIPTION: An elderly female lying in bed in no distress RESPIRATORY SYSTEM: Unlabored breathing , decreased breath sounds at bases HEART: S1 S2 regular rate and rhythm , ABDOMEN: Soft , no tenderness EXTREMITIES: No edema feet - Labs CBC & Chem 7: 08/06/23 05:37 08/06/23 05:37 Labs: Abnormal Lab Results - Last 24 Hours (Table) 08/05/23 08/05/23 08/06/23 Range/Units 08:31 08:31 05:37 RBC 3.71 L 3.21 L (3.80-5.40) m/uL Hgb 11.0 L 10.0 L (11.4-16.0) gm/dL Hct 29.9 L (34.0-46.0) % RDW 18.0 H 18.2 H (11.5-15.5) % Sodium (137-145) mmol/L Potassium 3.4 L (3.5-5.1) mmol/L BUN 24 H (7-17) mg/dL Creatinine 4.95 H (0.52-1.04) mg/dL 08/06/23 Range/Units 05:37 RBC (3.80-5.40) m/uL Hgb (11.4-16.0) gm/dL Hct (34.0-46.0) % RDW (11.5-15.5) % Sodium 136 L (137-145) mmol/L Potassium (3.5-5.1) mmol/L BUN 29 H (7-17) mg/dL Creatinine 4.77 H (0.52-1.04) mg/dL Microbiology - Last 24 Hours (Table) 08/02/23 11:08 Gram Stain - Preliminary Aspirate Body Fluid Culture - Preliminary Assessment and Plan (1) Failure of outpatient treatment Current Visit: Yes Status: Acute Code(s): Z78.9 - OTHER SPECIFIED HEALTH STATUS SNOMED Code(s): 202219369 (2) Leukocytosis Current Visit: No Status: Acute Code(s): D72.829 - ELEVATED WHITE BLOOD CELL COUNT, UNSPECIFIED SNOMED Code(s): 715723150 (3) Renal abscess Current Visit: No Status: Acute Code(s): N15.1 - RENAL AND PERINEPHRIC ABSCESS SNOMED Code(s): 2818045 Plan: 1patient presented to hospital with low-grade fever did have significant vomiting patient did have similar presentation last time when she was admitted to hospital and was diagnosed with a left renal abscess in this patient who s/p CT-guided drainage culture did grow E. coli that was sensitive to ceftriaxone and the patient has completed extensive course of IV followed by oral antibiotic therapy now presenting with similar symptoms concerning for likely left renal abscess 2CT abdominal pelvis shows left-sided renal abscess 3urology has been consulted and they are recommending IR drainage of this abscess , Which was completed on 08/02/2023. 4patient seem to have shown clinical improvement afebrile vital normal continue with the cefepime and monitor clinical course closely Dictation was produced using dragon dictation software. please excuse any grammatical, word or spelling errors.
[2023-08-07] MEDS: ATORVASTATIN 40 MG TAB PO SCH (22:03)
[2023-08-08] MEDS: DIALYSIS (PERIT 1.5%) 2,500 ML 30 G/2,000 ML BAG INTRAPERIT SCH ×5 (00:15→23:51)
[2023-08-08] MEDS: ONDANSETRON 4 MG/2 ML VIAL IVP PRN ×2 (09:20→17:01)
[2023-08-08] MEDS: MIDODRINE 5 MG TAB PO SCH ×3 (09:21→17:01)
[2023-08-08] MEDS: METOPROLOL TARTRATE 12.5 MG TAB PO SCH ×2 (09:21→20:43)
[2023-08-08] MEDS: CHOLECALCIFEROL 25 MCG (1000 IU) TABLET PO SCH (09:21)
[2023-08-08] MEDS: POTASSIUM CHLORIDE ER 10 MEQ TAB.ER.PRT PO SCH (09:21)
[2023-08-08] MEDS: AMIODARONE 200 MG TAB PO SCH ×2 (09:21→20:43)
[2023-08-08] MEDS: PANTOPRAZOLE 40 MG/10 ML VIAL IV SCH ×2 (09:21→20:43)
[2023-08-08] MEDS: SODIUM BICARBONATE TAB 650 MG TAB PO SCH (09:21)
[2023-08-08] MEDS: allopurinoL 100 MG TAB PO SCH ×2 (09:21→20:43)
[2023-08-08] MEDS: FERROUS SULFATE 325 MG TAB PO SCH (09:21)
[2023-08-08] MEDS: CEFEPIME 1 GM in SODIUM CHLORIDE 0.9% 50 ML IVPB SCH (09:22)
[2023-08-08 09:32] LABS: Anisocytosis Slight; HCT 31.5 % (34.0-46.0); Hypochromasia Slight; MCH 29.8 pg (25.0-35.0); MCHC 31.8 g/dL (31.0-37.0); MCV 93.9 fL (80.0-100.0); Macrocytosis Slight; Mean Platelet Volume 8.1; Platelet Count 314 k/uL (150-450); RBC 3.35 m/uL (3.80-5.40); RDW 18.3 % (11.5-15.5); WBC 6.8 k/uL (3.8-10.6)
[2023-08-08 10:54] LABS: BUN/Creat Ratio 4.35 Ratio (12.00-20.00); Blood Urea Nitrogen 22.6 mg/dL (9.0-27.0); Calcium 9.2 mg/dL (8.7-10.3); Carbon Dioxide 28.5 mmol/L (21.6-31.8); Chloride 99 mmol/L (96-109); Glucose 73 mg/dL (70-110); Magnesium 1.7 mg/dL (1.5-2.4); Potassium 3.6 mmol/L (3.5-5.5); Sodium 137 mmol/L (135-145)
[2023-08-08] MEDS: APIXABAN 2.5 MG TABLET PO SCH ×2 (11:30→20:43)
--- NOTE | 2023-08-08 13:51 | P.PN ---
Subjective Patient is seen for follow-up for end-stage renal disease. Complaint of nausea this morning Awaiting PICC line placement. Objective - Vital Signs Vital signs: Vital Signs Temp 98.0 F 08/08/23 12:48 Pulse 64 08/08/23 12:48 Resp 18 08/08/23 12:48 BP 107/70 08/08/23 12:48 Pulse Ox 93 L 08/08/23 12:48 FiO2 Intake & Output 08/07/23 08/08/23 08/08/23 18:59 06:59 18:59 Intake Total 360 590 Output Total 0 Balance 360 590 Intake: Oral 360 590 Output: Urine 0 Other: Voiding Method Toilet Toilet Toilet CAPD CAPD CAPD # Bowel Movements 1 - Exam Patient is awake, comfortable, alert oriented 3. No acute distress. Examination of the heart S1 and S2 Examination of the lungs bilateral breath sounds are heard, no crackles or wheezing heard Abdomen is soft nontender Examination of lower extremities shows no edema [employer] exam grossly intact - Labs CBC & Chem 7: 08/08/23 06:28 08/08/23 06:28 Labs: Abnormal Lab Results - Last 24 Hours (Table) 08/08/23 08/08/23 Range/Units 06:28 06:28 RBC 3.35 L (3.80-5.40) m/uL Hgb 10.0 L (11.4-16.0) gm/dL Hct 31.5 L (34.0-46.0) % RDW 18.3 H (11.5-15.5) % Creatinine 5.2 H (0.6-1.5) mg/dL Est GFR (CKD-EPI) 8 L (>=60) BUN/Creatinine Ratio 4.35 L (12.00-20.00) Ratio Assessment and Plan Assessment: 1. End-stage renal disease maintained on peritoneal dialysis. 2. Persistent nausea and vomiting associated with underlying infection, improving with treatment of infection 3. Left renal abscess status post CT drainage in May 2023 and status post IV antibiotics as outpatient. There is consideration for possible need for left nephrectomy due to persistent infection and repeated admissions. Repeat CT shows decrease in size of abscess however this is status post CT-guided drainage on last admission. No current plans for nephrectomy from the urology standpoint as urinary pathogens for different. 4. Hypotension secondary to underlying sepsis 5. CK D mineral bone disorder 6. Hypotension associated with underlying infection. Started on IV fluids and also started on midodrine which we will continue. Plan: Continue with antibiotics post discharge Follow-up as outpatient post discharge Continue to encourage increased oral intake Continue with symptomatic treatment for nausea
--- NOTE | 2023-08-08 14:43 | P.DS ---
Providers Date of admission: 07/21/23 12:12 Expected date of discharge: 08/08/23 Attending physician: Ashlee Hoskins DO Consults: 07/20/23 14:31 Consult Physician Routine Consulting Provider: Cat Dobbs Consult Reason/Comments: ESRD on PD Do you want consulting provider notified?: Yes 07/20/23 15:27 Consult Physician Routine Consulting Provider: Yenni Christopher Consult Reason/Comments: Persistent nausea and vomitting Do you want consulting provider notified?: Yes 07/21/23 12:06 Consult Physician Routine Consulting Provider: Luz Marina Murguia Consult Reason/Comments: sepsis Do you want consulting provider notified?: Already Contacted 07/22/23 12:52 Consult Physician Routine Consulting Provider: Dick Wallis Consult Reason/Comments: Possible need for nephrectomy Do you want consulting provider notified?: Yes Primary care physician: [facility] Course: 82-year-old female with history of end-stage renal disease on peritoneal dialysis, atrial fibrillation, presenting with nausea and vomiting and lightheadedness. In the ED, temperature was 99.2, pulse 100, respiratory rate 18, blood pressure down to 83/52, saturating well on room air. White count 19, neutrophilic predominant, sodium 133, potassium 4.2, creatinine 7.4. She was given 2 L of normal saline in the ER. She is admitted for dehydration, nausea, vomiting. Nephrology was consulted. GI consulted for N/V, EGD showed mild antral gastritis and small hiatal hernia. Urinalysis positive for LE, patient started on vancomycin. ID consulted, UCx + Enterobacter, antibiotics switched to Cefepime. CT abdomen and pelvis showed left cortical abscess decrease in size. Urology consulted for possible nephrectomy, recommended IR drainage of abscess. A-team called for lightheadedness and hypotension during PD on 07/26. Patient placed on trendelenburg position and bolused 1L NS. Given Midodine. BP improved. Dizziness improving. Discussed with multiple family members. We are awaiting IR decision for left kidney cyst aspiration. Options presented including conservative management with aspiration and course of IV antibiotics with outpatient Urology referral. The other option is tr ansferring the patient inpatient for surgical evaluation. Family prefers the first option. We will continue to update Adama Brewer (cell: [phone]) on the plan. IR aspiration of the renal mass was delayed for 6 days due to patient being on ASA (already been taken off Eliquis). Patient underwent needle aspiration of the L renal mass on 08/02. Cultures were negative. Apparently, patient was supposed to get a midline on 08/02 but instead got an AccuCath in the L cephalic which is not suitable for 10 days of IV antibiotics. 08/08 Patient was seen and examined. Has nausea but no vomiting. Plans for midline to be placed today. Plans for 10 days of cefepime on discharge and repeat CT AP after that. She can potentially be discharged today after midline is placed. CBC Hg 10. BMP Cr 5.2. Mag 1.7. Follow up with Dr. Murguia and Dr. Dobbs within 1 week of discharge for repeat CT AP and Urology referral. Follow up with Dr. Christopher within 1 week, patient may benefit from esophageal manometry for persistent symptoms of nausea with solids but not with liquids. General: nontoxic, no distress, appears at stated age Derm: warm, dry, PD catheter clean, no erythema noted Head: atraumatic, normocephalic, symmetric Eyes: EOMI, no lid lag, anicteric sclera ENT: Nose and ears atraumatic Cardiovascular: S1S2 reg, no murmur, no edema Lungs: clear to auscultation bilateral, no rhonchi, no rales, no wheeze, no accessory muscle use Abdominal: soft, nontender to palpation, no guarding, no appreciable organomegaly Ext: no gross muscle atrophy, muscle strength muscle strength 5 out of 5 in all 4 extremities, no contractures Psych: Alert, oriented, appropriate affect Discharge Diagnosis: Sepsis likely secondary to Enterobacter UTI/renal abscess Presyncope Mild antral gastritis Small hiatal hernia ESRD on peritoneal dialysis Chronic: A-Fib, Gout, HDL, h/o TIA Resolved: Leukocytosis, HypoK This complex discharge took 35 minutes to complete. Patient Condition at Discharge: Stable Plan - Discharge Summary Discharge Rx Participant: No New Discharge Prescriptions: New Cefepime [Maxipime] 1 gm IVPB Q24H #10 each Pantoprazole [Protonix] 40 mg PO BID #60 tab Ondansetron Odt [Zofran Odt] 4 mg PO Q8HR PRN #30 tab PRN Reason: Nausea And Vomiting Continue Omeprazole [PriLOSEC] 20 mg PO HS allopurinoL [Zyloprim] 100 mg PO BID Estrogens, Conjugated Cream [Premarin Vaginal Cream] 1 applicator VAGINAL MOWEFR Aspirin 81 mg PO DAILY #60 tab Calcium Acetate [PhosLo] 667 mg PO BID-W/MEALS #60 tab Prochlorperazine [Compazine] 10 mg PO Q6H PRN #40 tab PRN Reason: Nausea And Vomiting Apixaban [Eliquis] 2.5 mg PO BID 90 Days #180 tab Midodrine [ProAmatine] 5 mg PO TID PRN PRN Reason: BP >110 SYSTOLIC Metoprolol Tartrate [Lopressor] 12.5 mg PO BID Amiodarone [Cordarone] 200 mg PO BID Sodium Bicarbonate Tab 650 mg PO BID Ferrous Sulfate [Iron (65 MG Elemental)] 325 mg PO DAILY Cholecalciferol [Vitamin D3 (25 Mcg = 1000 Iu)] 25 mcg PO DAILY Rosuvastatin [Crestor] 20 mg PO HS Liqua Martha Protein 1 dose PO BID Cranberry 4200mg 2 tab PO DAILY calcitrioL [Calcitriol] 0.25 mcg PO MO Potassium Chloride ER [K-Dur 10] 10 meq PO DAILY Discharge Medication List Omeprazole [PriLOSEC] 20 mg PO HS 05/11/14 [History] allopurinoL [Zyloprim] 100 mg PO BID 05/22/17 [History] Ferrous Sulfate [Iron (65 MG Elemental)] 325 mg PO DAILY 11/03/21 [History] Sodium Bicarbonate Tab 650 mg PO BID 11/03/21 [History] Cholecalciferol [Vitamin D3 (25 Mcg = 1000 Iu)] 25 mcg PO DAILY 09/15/22 [History] Rosuvastatin [Crestor] 20 mg PO HS 09/15/22 [History] Cranberry 4200mg 2 tab PO DAILY 05/24/23 [History] Estrogens, Conjugated Cream [Premarin Vaginal Cream] 1 applicator VAGINAL MOWEFR 05/24/23 [History] Liqua Martha Protein 1 dose PO BID 05/24/23 [History] calcitrioL [Calcitriol] 0.25 mcg PO MO 05/24/23 [History] Aspirin 81 mg PO DAILY #60 tab 06/09/23 [Rx] Calcium Acetate [PhosLo] 667 mg PO BID-W/MEALS #60 tab 11/09/23 [Rx] Potassium Chloride ER [K-Dur 10] 10 meq PO DAILY 07/05/23 [History] Apixaban [Eliquis] 2.5 mg PO BID 90 Days #180 tab 07/08/23 [Rx] Prochlorperazine [Compazine] 10 mg PO Q6H PRN #40 tab 07/08/23 [Rx] Amiodarone [Cordarone] 200 mg PO BID 07/20/23 [History] Metoprolol Tartrate [Lopressor] 12.5 mg PO BID 07/20/23 [History] Midodrine [ProAmatine] 5 mg PO TID PRN 07/20/23 [History] Cefepime [Maxipime] 1 gm IVPB Q24H #10 each 08/05/23 [Rx] Ondansetron Odt [Zofran Odt] 4 mg PO Q8HR PRN #30 tab 08/06/23 [Rx] Pantoprazole [Protonix] 40 mg PO BID #60 tab 08/06/23 [Rx] Follow up Appointment(s)/Referral(s): [facility] [NON-STAFF] - 1 Week Yenni Christopher MD [STAFF PHYSICIAN] - 1 Week (The office was not available to take calls please call and schedue follow up appointment.) [facility], [NON-STAFF] - As Needed [facility], [REFERRING] - 1 Week Keith Riley DO [Primary Care Provider] - 08/16/23 2:20 pm Luz Marina Murguia MD [STAFF PHYSICIAN] - 08/15/23 2:30 pm Activity/Diet/Wound Care/Special Instructions: pt is set up with [facility] and [facility] for SOS Tuesday. Discharge Disposition: HOME SELF-CARE
[2023-08-08] MEDS: CALCIUM ACETATE 667 MG TAB PO SCH (17:01)
[2023-08-08] MEDS: MAG HYDROX/AL HYDROX/SIMETH 30 ML CUP PO PRN (18:41)
[2023-08-08] MEDS: ATORVASTATIN 40 MG TAB PO SCH (20:43)
[2023-08-08] MEDS: PROCHLORPERAZINE INJ 10 MG/2 ML VIAL IVP PRN (21:43)
[2023-08-09] MEDS: DIALYSIS (PERIT 1.5%) 2,500 ML 30 G/2,000 ML BAG INTRAPERIT SCH ×2 (05:57→11:08)
[2023-08-09 08:05] VITALS: RESP 16
[2023-08-09] MEDS: CHOLECALCIFEROL 25 MCG (1000 IU) TABLET PO SCH (08:18)
[2023-08-09] MEDS: FERROUS SULFATE 325 MG TAB PO SCH (08:18)
[2023-08-09] MEDS: APIXABAN 2.5 MG TABLET PO SCH (08:18)
[2023-08-09] MEDS: allopurinoL 100 MG TAB PO SCH (08:18)
[2023-08-09] MEDS: AMIODARONE 200 MG TAB PO SCH (08:18)
[2023-08-09] MEDS: METOPROLOL TARTRATE 12.5 MG TAB PO SCH (08:18)
[2023-08-09] MEDS: PANTOPRAZOLE 40 MG/10 ML VIAL IV SCH (08:18)
[2023-08-09] MEDS: ONDANSETRON 4 MG/2 ML VIAL IVP PRN (08:18)
[2023-08-09] MEDS: POTASSIUM CHLORIDE ER 10 MEQ TAB.ER.PRT PO SCH (08:18)
[2023-08-09] MEDS: SODIUM BICARBONATE TAB 650 MG TAB PO SCH (08:18)
[2023-08-09] MEDS: MIDODRINE 5 MG TAB PO SCH ×2 (08:19→11:35)
[2023-08-09] MEDS: CEFEPIME 1 GM in SODIUM CHLORIDE 0.9% 50 ML IVPB SCH (08:19)
--- NOTE | 2023-08-09 11:11 | P.DS ---
Providers Date of admission: 07/21/23 12:12 Expected date of discharge: 08/09/23 Attending physician: Ashlee Hoskins DO Consults: 07/20/23 14:31 Consult Physician Routine Consulting Provider: Cat Dobbs Consult Reason/Comments: ESRD on PD Do you want consulting provider notified?: Yes 07/20/23 15:27 Consult Physician Routine Consulting Provider: Yenni Christopher Consult Reason/Comments: Persistent nausea and vomitting Do you want consulting provider notified?: Yes 07/21/23 12:06 Consult Physician Routine Consulting Provider: Luz Marina Murguia Consult Reason/Comments: sepsis Do you want consulting provider notified?: Already Contacted 07/22/23 12:52 Consult Physician Routine Consulting Provider: Dick Wallis Consult Reason/Comments: Possible need for nephrectomy Do you want consulting provider notified?: Yes Primary care physician: [facility] Course: 82-year-old female with history of end-stage renal disease on peritoneal dialysis, atrial fibrillation, presenting with nausea and vomiting and lightheadedness. In the ED, temperature was 99.2, pulse 100, respiratory rate 18, blood pressure down to 83/52, saturating well on room air. White count 19, neutrophilic predominant, sodium 133, potassium 4.2, creatinine 7.4. She was given 2 L of normal saline in the ER. She is admitted for dehydration, nausea, vomiting. Nephrology was consulted. GI consulted for N/V, EGD showed mild antral gastritis and small hiatal hernia. Urinalysis positive for LE, patient started on vancomycin. ID consulted, UCx + Enterobacter, antibiotics switched to Cefepime. CT abdomen and pelvis showed left cortical abscess decrease in size. Urology consulted for possible nephrectomy, recommended IR drainage of abscess. A-team called for lightheadedness and hypotension during PD on 07/26. Patient placed on trendelenburg position and bolused 1L NS. Given Midodine. BP improved. Dizziness improving. Discussed with multiple family members. We are awaiting IR decision for left kidney cyst aspiration. Options presented including conservative management with aspiration and course of IV antibiotics with outpatient Urology referral. The other option is tr ansferring the patient inpatient for surgical evaluation. Family prefers the first option. We will continue to update Adama Brewer (cell: [phone]) on the plan. IR aspiration of the renal mass was delayed for 6 days due to patient being on ASA (already been taken off Eliquis). Patient underwent needle aspiration of the L renal mass on 08/02. Cultures were negative. Apparently, patient was supposed to get a midline on 08/02 but instead got an AccuCath in the L cephalic which is not suitable for 10 days of IV antibiotics. PICC line was unable to be done on 08/08 or 08/09 due to IR availability. 08/08 Patient was seen and examined. Doing well. Plans for midline and discharge home after that. Discussed with Dr. Dobbs. Follow up with Dr. Murguia and Dr. Dobbs within 1 week of discharge for repeat CT AP and Urology referral. Follow up with Dr. Christopher within 1 week, patient may benefit from esophageal manometry for persistent symptoms of nausea with solids but not with liquids. General: nontoxic, no distress, appears at stated age Derm: warm, dry, PD catheter clean, no erythema noted Head: atraumatic, normocephalic, symmetric Eyes: EOMI, no lid lag, anicteric sclera ENT: Nose and ears atraumatic Cardiovascular: S1S2 reg, no murmur, no edema Lungs: clear to auscultation bilateral, no rhonchi, no rales, no wheeze, no accessory muscle use Abdominal: soft, nontender to palpation, no guarding, no appreciable organomegaly Ext: no gross muscle atrophy, muscle strength muscle strength 5 out of 5 in all 4 extremities, no contractures Psych: Alert, oriented, appropriate affect Discharge Diagnosis: Sepsis likely secondary to Enterobacter UTI/renal abscess Presyncope Mild antral gastritis Small hiatal hernia ESRD on peritoneal dialysis Chronic: A-Fib, Gout, HDL, h/o TIA Resolved: Leukocytosis, HypoK This complex discharge took 35 minutes to complete. Patient Condition at Discharge: Stable Plan - Discharge Summary Discharge Rx Participant: No New Discharge Prescriptions: New Cefepime [Maxipime] 1 gm IVPB Q24H #10 each Pantoprazole [Protonix] 40 mg PO BID #60 tab Ondansetron Odt [Zofran Odt] 4 mg PO Q8HR PRN #30 tab PRN Reason: Nausea And Vomiting Lactulose [Cephulac] 10 gm PO TID PRN #473 ml PRN Reason: Constipation Continue Omeprazole [PriLOSEC] 20 mg PO HS allopurinoL [Zyloprim] 100 mg PO BID Estrogens, Conjugated Cream [Premarin Vaginal Cream] 1 applicator VAGINAL MOWEFR Aspirin 81 mg PO DAILY #60 tab Calcium Acetate [PhosLo] 667 mg PO BID-W/MEALS #60 tab Prochlorperazine [Compazine] 10 mg PO Q6H PRN #40 tab PRN Reason: Nausea And Vomiting Apixaban [Eliquis] 2.5 mg PO BID 90 Days #180 tab Midodrine [ProAmatine] 5 mg PO TID PRN PRN Reason: BP >110 SYSTOLIC Metoprolol Tartrate [Lopressor] 12.5 mg PO BID Amiodarone [Cordarone] 200 mg PO BID Sodium Bicarbonate Tab 650 mg PO BID Ferrous Sulfate [Iron (65 MG Elemental)] 325 mg PO DAILY Cholecalciferol [Vitamin D3 (25 Mcg = 1000 Iu)] 25 mcg PO DAILY Rosuvastatin [Crestor] 20 mg PO HS Liqua Martha Protein 1 dose PO BID Cranberry 4200mg 2 tab PO DAILY calcitrioL [Calcitriol] 0.25 mcg PO MO Potassium Chloride ER [K-Dur 10] 10 meq PO DAILY Discharge Medication List Omeprazole [PriLOSEC] 20 mg PO HS 05/11/14 [History] allopurinoL [Zyloprim] 100 mg PO BID 05/22/17 [History] Ferrous Sulfate [Iron (65 MG Elemental)] 325 mg PO DAILY 11/03/21 [History] Sodium Bicarbonate Tab 650 mg PO BID 11/03/21 [History] Cholecalciferol [Vitamin D3 (25 Mcg = 1000 Iu)] 25 mcg PO DAILY 09/15/22 [History] Rosuvastatin [Crestor] 20 mg PO HS 09/15/22 [History] Cranberry 4200mg 2 tab PO DAILY 05/24/23 [History] Estrogens, Conjugated Cream [Premarin Vaginal Cream] 1 applicator VAGINAL MOWEFR 05/24/23 [History] Liqua Martha Protein 1 dose PO BID 05/24/23 [History] calcitrioL [Calcitriol] 0.25 mcg PO MO 05/24/23 [History] Aspirin 81 mg PO DAILY #60 tab 06/09/23 [Rx] Calcium Acetate [PhosLo] 667 mg PO BID-W/MEALS #60 tab 06/09/23 [Rx] Potassium Chloride ER [K-Dur 10] 10 meq PO DAILY 07/05/23 [History] Apixaban [Eliquis] 2.5 mg PO BID 90 Days #180 tab 07/08/23 [Rx] Prochlorperazine [Compazine] 10 mg PO Q6H PRN #40 tab 07/08/23 [Rx] Amiodarone [Cordarone] 200 mg PO BID 07/20/23 [History] Metoprolol Tartrate [Lopressor] 12.5 mg PO BID 07/20/23 [History] Midodrine [ProAmatine] 5 mg PO TID PRN 07/20/23 [History] Cefepime [Maxipime] 1 gm IVPB Q24H #10 each 08/05/23 [Rx] Ondansetron Odt [Zofran Odt] 4 mg PO Q8HR PRN #30 tab 08/06/23 [Rx] Pantoprazole [Protonix] 40 mg PO BID #60 tab 08/06/23 [Rx] Lactulose [Cephulac] 10 gm PO TID PRN #473 ml 08/09/23 [Rx] Follow up Appointment(s)/Referral(s): [facility] [NON-STAFF] - 1 Week Yenni Christopher MD [STAFF PHYSICIAN] - 1 Week (The office was not available to take calls please call and schedue follow up appointment.) [facility], [NON-STAFF] - As Needed [facility], [REFERRING] - 1 Week Keith Riley DO [Primary Care Provider] - 08/16/23 2:20 pm Luz Marina Murguia MD [STAFF PHYSICIAN] - 08/15/23 2:30 pm Activity/Diet/Wound Care/Special Instructions: pt is set up with [facility] and [facility] for SOS Tuesday. Discharge Disposition: HOME SELF-CARE
[2023-08-09 11:26] VITALS: BP 105/71; PULSE 69; TEMP 98.3
--- NOTE | 2023-08-09 12:00 | P.PN ---
Subjective Patient is seen for follow-up for end-stage renal disease. Status post midline placement today No new complaints. Hemodynamically stable. Scheduled for discharge today. Objective - Vital Signs Vital signs: Vital Signs Temp 98.3 F 08/09/23 11:08 Pulse 69 08/09/23 11:08 Resp 16 08/09/23 11:08 BP 105/71 08/09/23 11:08 Pulse Ox 93 L 08/09/23 11:08 FiO2 Intake & Output 08/08/23 08/09/23 08/09/23 18:59 06:59 18:59 Other: Voiding Method Toilet Toilet Toilet CAPD CAPD CAPD # Voids 2 1 # Bowel Movements 1 - Exam Patient is awake, comfortable, alert oriented 3. No acute distress. Appears euvolemic [employer]NER exam grossly intact - Labs CBC & Chem 7: 08/08/23 06:28 08/08/23 06:28 Assessment and Plan Assessment: 1. End-stage renal disease maintained on peritoneal dialysis. 2. Persistent nausea and vomiting, status post EGD which showed mild antral gastritis, currently maintained on proton pump inhibitors 3. Left renal abscess status post CT drainage in May 2023 and status post IV antibiotics as outpatient. There is consideration for possible need for left nephrectomy due to persistent infection and repeated admissions. Repeat CT shows decrease in size of abscess however this is status post CT-guided drainage on last admission. No current plans for nephrectomy from the urology standpoint as urinary pathogens for different. Status post repeat CT-guided drainage on 08/02/2022 4. Hypotension secondary to underlying sepsis 5. CK D mineral bone disorder 6. Hypotension associated with underlying infection. Started on IV fluids and also started on midodrine which we will continue. Plan: Continue with antibiotics post discharge Follow-up as outpatient post discharge Continue to encourage increased oral intake Continue with symptomatic treatment for nausea
== END 2023-08-09 13:16 | disposition home health service (06) | DRG 871 ==
LOC: EC 09:32 → 5NMEDONC 12:23 → 3SCARD 17:02 → 5NMEDONC 17:27 → OBSVTOIN 07-21 12:12 → 5NMEDONC 07-29 03:24
PROVIDERS: ADMIT Internal Medicine; ATTEND Internal Medicine
PROC: 3E1M39Z Irrigation of Peritoneal Cavity using Dialysate, Percutaneous Approach (ICD-10-PCS; 2023-07-20)
PROC: 05HF33Z Insertion of Infusion Device into Left Cephalic Vein, Percutaneous Approach (ICD-10-PCS; 2023-07-21)
PROC: 0DB78ZX Excision of Stomach, Pylorus, Via Natural or Artificial Opening Endoscopic, Diagnostic (ICD-10-PCS; 2023-07-22)
PROC: 0DB58ZX Excision of Esophagus, Via Natural or Artificial Opening Endoscopic, Diagnostic (ICD-10-PCS; 2023-07-22)
PROC: 05HF33Z Insertion of Infusion Device into Left Cephalic Vein, Percutaneous Approach (ICD-10-PCS; 2023-08-02)
PROC: 0T913ZX Drainage of Left Kidney, Percutaneous Approach, Diagnostic (ICD-10-PCS; principal; 2023-08-02 21:30)
PROC: 05HC33Z Insertion of Infusion Device into Left Basilic Vein, Percutaneous Approach (ICD-10-PCS; 2023-08-09)
DX: A41.59 Other Gram-negative sepsis (principal); N15.1 Renal and perinephric abscess; N18.6 End stage renal disease; I12.0 Hypertensive chronic kidney disease with stage 5 chronic kidney disease or end stage renal disease; I48.20 Chronic atrial fibrillation, unspecified; Q61.3 Polycystic kidney, unspecified; Z16.24 Resistance to multiple antibiotics; N39.0 Urinary tract infection, site not specified; D63.1 Anemia in chronic kidney disease; E83.9 Disorder of mineral metabolism, unspecified; Z99.2 Dependence on renal dialysis; E86.0 Dehydration; E78.5 Hyperlipidemia, unspecified; E83.42 Hypomagnesemia; E87.6 Hypokalemia; R13.10 Dysphagia, unspecified; K29.70 Gastritis, unspecified, without bleeding; E86.1 Hypovolemia; E87.70 Fluid overload, unspecified; I95.1 Orthostatic hypotension; K44.9 Diaphragmatic hernia without obstruction or gangrene; K59.00 Constipation, unspecified; I83.93 Asymptomatic varicose veins of bilateral lower extremities; R63.4 Abnormal weight loss; M10.9 Gout, unspecified; Z79.01 Long term (current) use of anticoagulants; Z79.82 Long term (current) use of aspirin; Z79.890 Hormone replacement therapy; Z79.899 Other long term (current) drug therapy; Z86.73 Personal history of transient ischemic attack (TIA), and cerebral infarction without residual deficits; Z87.440 Personal history of urinary (tract) infections; Z88.1 Allergy status to other antibiotic agents; Z88.8 Allergy status to other drugs, medicaments and biological substances
CPT/HCPCS: 36410; 36415; 43239; 74177; 76937; 77012; 80048; 80053; 81001; 82150; 82533; 82565; 82728; 83540; 83550; 83605; 83690; 83735; 84100; 85025; 85027; 85610; 87040; 87070; 87077; 87086; 87102; 87186; 87205; 88173; 88305; 89050; 96361; 96374; 96375; 99285

== ENCOUNTER 2023-08-11 10:45 | Emergency (ER) | payer MEDICARE ==
[2023-08-11 11:16] VITALS: RESP 18
[2023-08-11] MEDS ORDERED: ALTEPLASE 2 MG VIAL (CATHFLO) IV STA (11:20)
--- NOTE | 2023-08-11 11:58 | ED ---
Recheck HPI - General Chief Complaint: Recheck/Abnormal Lab/Rx Stated Complaint: PICC Line Malfunction Time Seen by Provider: 08/11/23 11:02 Source: patient, family, RN notes reviewed Mode of arrival: ambulatory Limitations: no limitations - History of Present Illness Initial Comments: Patient is an 82 mg in the ER with chief complaint of PICC line malfunction. Patient was recently hospitalized and had a PICC line placed for outpatient IV antibiotics. PICC line was placed on Tuesday. Patient states her visiting RN attempted to flush the PICC line yesterday and was unsuccessful. Nurse stated that she should come to the ER for further evaluation. Patient denies any chest pain, shortness of breath, fevers, chills, night sweats. - Related Data Home Medications Medication Instructions Recorded Confirmed Omeprazole [PriLOSEC] 20 mg PO HS 05/11/14 07/20/23 allopurinoL [Zyloprim] 100 mg PO BID 05/22/17 07/20/23 Ferrous Sulfate [Iron (65 MG 325 mg PO DAILY 11/03/21 07/20/23 Elemental)] Sodium Bicarbonate Tab 650 mg PO BID 11/03/21 07/20/23 Cholecalciferol [Vitamin D3 (25 25 mcg PO DAILY 09/15/22 07/20/23 Mcg = 1000 Iu)] Rosuvastatin [Crestor] 20 mg PO HS 09/15/22 07/20/23 Cranberry 4200mg 2 tab PO DAILY 05/24/23 07/20/23 Estrogens, Conjugated Cream 1 applicator VAGINAL MOWEFR 05/24/23 07/20/23 [Premarin Vaginal Cream] Liqua Martha Protein 1 dose PO BID 05/24/23 07/20/23 calcitrioL [Calcitriol] 0.25 mcg PO MO 05/24/23 07/20/23 Potassium Chloride ER [K-Dur 10] 10 meq PO DAILY 07/05/23 07/20/23 Amiodarone [Cordarone] 200 mg PO BID 07/20/23 07/20/23 Metoprolol Tartrate [Lopressor] 12.5 mg PO BID 07/20/23 07/20/23 Midodrine [ProAmatine] 5 mg PO TID PRN 07/20/23 07/20/23 Previous Rx's Medication Instructions Recorded Aspirin 81 mg PO DAILY #60 tab 06/09/23 Calcium Acetate [PhosLo] 667 mg PO BID-W/MEALS #60 tab 06/09/23 Apixaban [Eliquis] 2.5 mg PO BID 90 Days #180 tab 07/08/23 Prochlorperazine [Compazine] 10 mg PO Q6H PRN #40 tab 07/08/23 Cefepime [Maxipime] 1 gm IVPB Q24H #10 each 08/05/23 Ondansetron Odt [Zofran Odt] 4 mg PO Q8HR PRN #30 tab 08/06/23 Pantoprazole [Protonix] 40 mg PO BID #60 tab 08/06/23 Lactulose [Cephulac] 10 gm PO TID PRN #473 ml 08/09/23 Allergies Allergy/AdvReac Type Severity Reaction Status Date / Time losartan [Losartan] Allergy Unknown Verified 08/11/23 10:53 LUANA Inhibitors AdvReac Cough Verified 08/11/23 10:53 levofloxacin [From Levaquin] AdvReac Hallucinati Verified 08/11/23 10:53 ons Review of Systems ROS Statement: Those systems with pertinent positive or pertinent negative responses have been documented in the HPI. ROS Other: All systems not noted in ROS Statement are negative. 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 History of Any Multi-Drug Resistant Organisms: None Reported Past Surgical History: Section, Hysterectomy, Joint Replacement, Orthopedic Surgery Additional Past Surgical History / Comment(s): 3 C-Sections, hysterectomy with vaginal repair, bilateral total knees, R shoulder acromioplasty, excision distal clavicle rotator cuff repair, bilateral cataract removal with lens implants, L breast bx-benign, varicose vein stripping bilaterally, peritoneal HD cath Past Anesthesia/Blood Transfusion Reactions: No Reported Reaction Past Psychological History: No Psychological Hx Reported Smoking Status: Never smoker Past Alcohol Use History: None Reported Past Drug Use History: None Reported - Past Family History Brother(s) Family Medical History: Renal Disease Father Family Medical History: Unable to Obtain Mother Family Medical History: Coronary Artery Disease (CAD), CVA/TIA Additional Family Medical History / Comment(s): Mother at 92 yrs of age. She had TIA's. General Exam Limitations: no limitations General appearance: alert, in no apparent distress Respiratory exam: Present: normal lung sounds bilaterally. Absent: respiratory distress, wheezes, rales, rhonchi, stridor Cardiovascular Exam: Present: regular rate, normal rhythm, normal heart sounds. Absent: systolic murmur, diastolic murmur, rubs, gallop, clicks Neurological exam: Present: alert, oriented X3, CN II-XII intact Psychiatric exam: Present: normal affect, normal mood Skin exam: Present: warm, dry, intact, normal color, other (PICC line in place in left upper extremity. Contusion noted to the left lateral upper extremity. No signs of infection). Absent: rash Course Vital Signs 08/11/23 08/11/23 10:50 12:25 Temperature 97.8 F 98.2 F Pulse Rate 74 68 Respiratory 18 18 Rate Blood Pressure 95/68 109/72 O2 Sat by Pulse 95 97 Oximetry Medical Decision Making - Medical Decision Making Was pt. sent in by a medical professional or institution (, PA, MARKETING ANALYTICS LEAD, urgent care, hospital, or alf...) When possible be specific @ -No Did you speak to anyone other than the patient for history (EMS, parent, family, police, friend...)? What history was obtained from this source @ -No Did you review nursing and triage notes (agree or disagree)? Why? @ -I reviewed and agree with nursing and triage notes Were old charts reviewed (outside hosp., previous admission, EMS record, old EKG, old radiological studies, urgent care reports/EKG's, alf records)? Report findings @ -No old charts were reviewed Differential Diagnosis (chest pain, altered mental status, abdominal pain women, abdominal pain men, vaginal bleeding, weakness, fever, dyspnea, syncope, headache, dizziness, GI bleed, back pain, seizure, CVA, palpatations, mental health, musculoskeletal)? @ -Cellulitis, PICC line infection, blood clot, this list is not meant to be all-inclusive EKG interpreted by me (3pts min.). @ -None X-rays interpreted by me (1pt min.). @ -None done CT interpreted by me (1pt min.). @ -None done U/S interpreted by me (1pt. min.). @ -None done What testing was considered but not performed or refused? (CT, X-rays, U/S, labs)? Why? @ -None What meds were considered but not given or refused? Why? @ -None Did you discuss the management of the patient with other professionals (professionals i.e. , PA, MARKETING ANALYTICS LEAD, lab, RT, psych nurse, social services assistant, retail grocer, teacher, credit or loans officer, adult protective caseworker)? Give summary @ -No Was smoking cessation discussed for >3mins.? @ -No Was critical care preformed (if so, how long)? @ -No Were there social determinants of health that impacted care today? How? (Homelessness, low income, unemployed, alcoholism, drug addiction, transportation, low edu. Level, literacy, decrease access to med. care, [facility], rehab)? @ -No Was there de-escalation of care discussed even if they declined (Discuss DNR or withdrawal of care, Hospice)? DNR status @ -No What co-morbidities impacted this encounter? (DM, HTN, Smoking, COPD, CAD, Cancer, CVA, ARF, Chemo, Hep., AIDS, mental health diagnosis, sleep apnea, morbid obesity)? @ -None Was patient admitted / discharged? Hospital course, mention meds given and route, prescriptions, significant lab abnormalities, going to OR and other pertinent info. @ -Discharge. Patient is an 82 year old female presenting to the ER with chief complaint of PICC line malfunction. Vitals stable. History and physical exam completed. Patient denied any complaints and was in no apparent distress. PICC line was wihtout signs of infection and a clean dressing was place. PICC line was flushed with saline and was successful. Heparin flush was also completed to prevent further blood clots. Patient had no other complaints at this time. Patient did report that she had an IV antibiotic treatment at 4:00 today. I advised her to inform her home nurse of her ER visit. Return parameters were discussed. Patient be discharged in stable condition with follow-up to PCP/ID. patient expressed understanding and agreement with care plan. Undiagnosed new problem with uncertain prognosis? @ -No Drug Therapy requiring intensive monitoring for toxicity (Heparin, Nitro, Insulin, Cardizem)? @ -None Were any procedures done? @ -No Diagnosis/symptom? @ -PICC line check Acute, or Chronic, or Acute on Chronic? @ -Acute Uncomplicated (without systemic symptoms) or Complicated (systemic symptoms)? @ -Uncomplicated Side effects of treatment? @ -No Exacerbation, Progression, or Severe Exacerbation? @ -No Poses a threat to life or bodily function? How? (Chest pain, [place], [place], pneumonia, PE, COPD, DKA, ARF, appy, cholecystitis, CVA, Diverticulitis, Homicidal, Suicidal, threat to staff... and all critical care pts) @ -No Disposition Clinical Impression: PIC line (peripherally inserted central catheter) flush Disposition: HOME SELF-CARE Condition: Stable Additional Instructions: Continue IV antibiotics as scheduled. Please follow-up with PCP/ID. Return to the ER for any new or worsening symptoms Is patient prescribed a controlled substance at d/c from ED?: No Referrals: Keith Riley DO [Primary Care Provider] - 1-2 days Time of Disposition: 12:17
[2023-08-11 12:34] VITALS: BP 109/72; PULSE 68; TEMP 98.2
== END 2023-08-11 12:25 | disposition home or self-care (01) ==
LOC: EC 10:45
DX: T82.594A Other mechanical complication of infusion catheter, initial encounter (principal); I10 Essential (primary) hypertension; E78.5 Hyperlipidemia, unspecified; Z79.899 Other long term (current) drug therapy; Z88.8 Allergy status to other drugs, medicaments and biological substances
CPT/HCPCS: 99283 ×2; 96374 ×2; J1642

== ENCOUNTER 2023-08-12 11:21 | Emergency (ER) | payer MEDICARE ==
--- NOTE | 2023-08-12 11:33 | ED ---
Recheck HPI - General Source: patient, family, RN notes reviewed <Brie Andrade - Last Filed: 08/12/23 11:32> - General Source: patient, family, RN notes reviewed Mode of arrival: ambulatory Limitations: no limitations <Susie High - Last Filed: 08/12/23 16:32> - General Chief Complaint: Recheck/Abnormal Lab/Rx Stated Complaint: PICC line replacement Time Seen by Provider: 08/12/23 11:32 - History of Present Illness Initial Comments: Patient is a 2-year-old male presented ER with chief complaint of PICC line malfunction. Patient was seen here yesterday for similar complaint. Patient states today her visiting nurse reported that her PICC line was blocked and needed a new one. Patient follows up with Dr. Murguia. Patient denies any other complaints. (Brie Andrade) This is an 82-year-old female who presents to the emergency department for problems with her midline. There was initial confusion in thinking that this was a PICC line, however they were unable to do the PICC line and subsequently inserted a midline instead. She is receiving cefepime once daily through the midline for a renal abscess. Patient was discharged from here on 08/09 after being admitted for sepsis secondary to a UTI with associated renal abscess. She presented to the emergency department yesterday for concerns of a midline malfunction. Nursing staff was able to flush this without difficulty and the patient was discharged home. States that the visiting nurse today was unable to push the medication through the midline, and instructed the family to come into the emergency department again to have the midline replaced. (Susie High) - Related Data Home Medications Medication Instructions Recorded Confirmed Omeprazole [PriLOSEC] 20 mg PO HS 05/11/14 07/20/23 allopurinoL [Zyloprim] 100 mg PO BID 05/22/17 07/20/23 Ferrous Sulfate [Iron (65 MG 325 mg PO DAILY 11/03/21 07/20/23 Elemental)] Sodium Bicarbonate Tab 650 mg PO BID 11/03/21 07/20/23 Cholecalciferol [Vitamin D3 (25 25 mcg PO DAILY 09/15/22 07/20/23 Mcg = 1000 Iu)] Rosuvastatin [Crestor] 20 mg PO HS 09/15/22 07/20/23 Cranberry 4200mg 2 tab PO DAILY 05/24/23 07/20/23 Estrogens, Conjugated Cream 1 applicator VAGINAL MOWEFR 05/24/23 07/20/23 [Premarin Vaginal Cream] Liqua Martha Protein 1 dose PO BID 05/24/23 07/20/23 calcitrioL [Calcitriol] 0.25 mcg PO MO 05/24/23 07/20/23 Potassium Chloride ER [K-Dur 10] 10 meq PO DAILY 07/05/23 07/20/23 Amiodarone [Cordarone] 200 mg PO BID 07/20/23 07/20/23 Metoprolol Tartrate [Lopressor] 12.5 mg PO BID 07/20/23 07/20/23 Midodrine [ProAmatine] 5 mg PO TID PRN 07/20/23 07/20/23 Previous Rx's Medication Instructions Recorded Aspirin 81 mg PO DAILY #60 tab 06/09/23 Calcium Acetate [PhosLo] 667 mg PO BID-W/MEALS #60 tab 06/09/23 Apixaban [Eliquis] 2.5 mg PO BID 90 Days #180 tab 07/08/23 Prochlorperazine [Compazine] 10 mg PO Q6H PRN #40 tab 07/08/23 Cefepime [Maxipime] 1 gm IVPB Q24H #10 each 08/05/23 Ondansetron Odt [Zofran Odt] 4 mg PO Q8HR PRN #30 tab 08/06/23 Pantoprazole [Protonix] 40 mg PO BID #60 tab 08/06/23 Lactulose [Cephulac] 10 gm PO TID PRN #473 ml 08/09/23 Allergies Allergy/AdvReac Type Severity Reaction Status Date / Time losartan [Losartan] Allergy Unknown Verified 08/12/23 11:33 LUANA Inhibitors AdvReac Cough Verified 08/12/23 11:33 levofloxacin [From Levaquin] AdvReac Hallucinati Verified 08/12/23 11:33 ons Review of Systems ROS Other: All systems not noted in ROS Statement are negative. <Brie Andrade - Last Filed: 08/12/23 11:32> ROS Other: All systems not noted in ROS Statement are negative. <Susie High - Last Filed: 08/12/23 16:32> ROS Statement: Those systems with pertinent positive or pertinent negative responses have been documented in the HPI. 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 History of Any Multi-Drug Resistant Organisms: None Reported Past Surgical History: Section, Hysterectomy, Joint Replacement, Orthopedic Surgery Additional Past Surgical History / Comment(s): 3 C-Sections, hysterectomy with vaginal repair, bilateral total knees, R shoulder acromioplasty, excision distal clavicle rotator cuff repair, bilateral cataract removal with lens implants, L breast bx-benign, varicose vein stripping bilaterally, peritoneal HD cath Past Anesthesia/Blood Transfusion Reactions: No Reported Reaction Past Psychological History: No Psychological Hx Reported Smoking Status: Never smoker Past Alcohol Use History: None Reported Past Drug Use History: None Reported - Past Family History Brother(s) Family Medical History: Renal Disease Father Family Medical History: Unable to Obtain Mother Family Medical History: Coronary Artery Disease (CAD), CVA/TIA Additional Family Medical History / Comment(s): Mother at 92 yrs of age. She had TIA's. <Brie Andrade - Last Filed: 08/12/23 11:32> General Exam <Brie Andrade - Last Filed: 08/12/23 11:32> Limitations: no limitations General appearance: alert, in no apparent distress Head exam: Present: atraumatic, normocephalic, normal inspection Respiratory exam: Present: normal lung sounds bilaterally. Absent: respiratory distress, wheezes, rales, rhonchi, stridor Cardiovascular Exam: Present: regular rate, normal rhythm, normal heart sounds. Absent: systolic murmur, diastolic murmur, rubs, gallop, clicks Neurological exam: Present: alert, oriented X3, CN II-XII intact Psychiatric exam: Present: normal affect, normal mood Skin exam: Present: warm, dry, intact, normal color. Absent: rash <Susie High - Last Filed: 08/12/23 16:32> - General Exam Comments Initial Comments: Visual Physical Exam Vital signs reviewed General: Well-appearing, nontoxic, no acute distress. Head: Normocephalic, atraumatic Eyes: PERRLA, EOMI ENT: Airway patent Chest: Nonlabored breathing Skin: No visual rash, normal skin tone Neuro: Alert and oriented 3 Musculoskeletal: No gross abnormalities (Brie Andrade) Course Vital Signs 08/12/23 08/12/23 11:30 14:55 Temperature 98.0 F 98 F Pulse Rate 78 74 Respiratory 18 18 Rate Blood Pressure 101/68 105/72 O2 Sat by Pulse 96 100 Oximetry Medical Decision Making <Brie Andrade - Last Filed: 08/12/23 11:32> <Susie High - Last Filed: 08/12/23 16:32> - Medical Decision Making I performed the quick note portion of the exam. Electronically signed by Brie Andrade PA-C (Brie Andrade) This is an 82-year-old female who presents to the emergency department for problems with her midline catheter. Was pt. sent in by a medical professional or institution? @ -No Did you speak to anyone other than the patient for history? @ -No Did you review nursing and triage notes? @ -I disagree with the portion about the patient having a PICC line, this was a midline. Were old charts reviewed? @ -No Differential Diagnosis? @ -Differential midline malfunction: Placement, break, clot, this is not meant to be an all-inclusive list. EKG interpreted by me (3pts min.)? @ -Not obtained X-rays interpreted by me (1pt min.)? @ -Not obtained CT interpreted by me (1pt min.)? @ -Not obtained U/S interpreted by me (1pt. min.)? @ -Not obtained What testing was considered but not performed? (CT, X-rays, U/S, labs)? Why? @ -None What meds were considered but not given? Why? @ -None Did you discuss the management of the patient with other professionals? @ -No Did you reconcile home meds? @ -No Was smoking cessation discussed for >3mins.? @ -No Was critical care preformed (if so, how long)? @ -No Were there social determinants of health that impacted care today? How? (Homelessness, low income, unemployed, alcoholism, drug addiction, transportation, low edu. Level, literacy, decrease access to med. care, assisted, rehab)? @ -No Was there de-escalation of care discussed even if they declined? (Discuss DNR or withdrawal of care, Hospice)? @ -No What co-morbidities impacted this encounter? (DM, HTN, Smoking, COPD, CAD, Cancer, CVA, Hep., AIDS, mental health diagnosis, sleep apnea, morbid obesity)? @ -Renal disease Was patient admitted / discharged? @ -Discharged. Patient's ED nurse spoke with the nursing staff in the entry level lab technician. They took the patient directly from the emergency department to the entry level lab technician and replaced her midline. She went to the [facility] afterwards and was then discharged home in stable condition. Undiagnosed new problem with uncertain prognosis? @ -None Drug Therapy requiring intensive monitoring for toxicity (Heparin, Nitro, Insulin, Cardizem)? @ -None Were any procedures done? @ -None Diagnosis/symptom? @ -Mechanical complication of infusion catheter Acute, or Chronic, or Acute on Chronic? @ -Acute Uncomplicated (without systemic symptoms) or Complicated (systemic symptoms)? @ -Uncomplicated Side effects of treatment? @ -None Exacerbation, Progression, or Severe Exacerbation] @ -Not applicable Poses a threat to life or bodily function? @ -If this were unable to be fixed and she could not receive her antibiotics, she is at risk for worsening infection. This case was discussed in detail with the attending ED physician, Dr. Mckoy. Presentation, findings, and treatment plan discussed in detail as well. (Susie High) Disposition <Brie Andrade - Last Filed: 08/12/23 11:32> Time of Disposition: 15:00 <Susie High - Last Filed: 08/12/23 16:32> Clinical Impression: Mechanical complication of infusion catheter Disposition: ADMITTED IP TO THIS [facility] Condition: Good Instructions (If sedation given, give patient instructions): How to Care for Your Midline Catheter (ED), Midline Catheter (DC), How to Flush Your Midline Catheter (ED) Additional Instructions: Resume normal diet and activity Continue same home medications Follow up as previously instructed Referrals: Keith Riley, [Primary Care Provider] - 1-2 days
[2023-08-12 11:52] VITALS: RESP 18
[2023-08-12] MEDS ORDERED: LIDOCAINE 1% INJ 10MG/ML (20 ML MDV) ONE (15:03)
[2023-08-12 15:06] VITALS: BP 105/72; PULSE 74; TEMP 98
== END 2023-08-12 15:48 | disposition other institution (70) ==
LOC: EC 11:21
DX: T82.594A Other mechanical complication of infusion catheter, initial encounter (principal); I12.0 Hypertensive chronic kidney disease with stage 5 chronic kidney disease or end stage renal disease; N18.6 End stage renal disease; M10.9 Gout, unspecified; M19.90 Unspecified osteoarthritis, unspecified site; E78.5 Hyperlipidemia, unspecified; Z79.899 Other long term (current) drug therapy; Z88.1 Allergy status to other antibiotic agents; Z88.8 Allergy status to other drugs, medicaments and biological substances; Z86.73 Personal history of transient ischemic attack (TIA), and cerebral infarction without residual deficits
CPT/HCPCS: 99284; 36410; 76937; C1751 ×2; C1769

== ENCOUNTER → 2023-09-27 | Outpatient (CLI) | payer MEDICARE ==
--- NOTE | 2023-09-27 23:00 | XR ---
EXAMINATION TYPE: XR chest 2V DATE OF EXAM: 09/27/2023 COMPARISON: 07/05/2023 INDICATION: Chronic, TECHNIQUE: Frontal and lateral views of the chest are obtained. FINDINGS: The heart size is normal. The pulmonary vasculature is normal. The lungs are clear. Hyperinflation flattening the diaphragms compatible with COPD. IMPRESSION: 1. No acute pulmonary process. 2 emphysematous changes
--- NOTE | 2023-09-27 23:22 | XR ---
EXAMINATION TYPE: XR knee complete RT DATE OF EXAM: 09/27/2023 COMPARISON: None HISTORY: Chronic cough, right knee pain TECHNIQUE: Three-view right knee FINDINGS: Tibial and femoral components are present. No joint effusion is evident. No acute fracture or dislocation is evident. Follow up exams can be performed as clinically indicated. IMPRESSION: 1. No acute osseous abnormality right knee. Knee prosthesis is present.
== END | disposition home or self-care (01) ==
LOC: RADXRYALE 16:03
PROVIDERS: ATTEND Family Medicine
DX: R05.3 Chronic cough (principal); M25.561 Pain in right knee
CPT/HCPCS: 71046

== ENCOUNTER 2023-10-07 10:02 | Emergency (ER) | payer MEDICARE ==
[2023-10-07 10:06] VITALS: RESP 18
--- NOTE | 2023-10-07 10:19 | ED ---
Nausea/Vomiting/Diarrhea HPI - General Chief complaint: Nausea/Vomiting/Diarrhea Stated complaint: Adominal Pain Time Seen by Provider: 10/07/23 10:07 Source: patient, RN notes reviewed Mode of arrival: wheelchair Limitations: no limitations - History of Present Illness Initial comments: This is an 83-year-old female who presents to the emergency department for diarrhea. States that this has been going on for the last 3-4 days. Unsure how many times a day she has gone, however she has already gone 5 times since waking up this morning. Stool is described as yellow in color and looks like sludge. She would not describe this as watery. She took imodium with no relief, however she only took this once. She has intermittent bouts of nausea as well. She threw up a small amount of liquid at some point, but has otherwise not had any episodes of emesis. Also reports associated abdominal pain, which is primarily in the lower abdomen. Denies any recent antibiotic use, new medications, or changes in her diet. Also denies any sick contacts. MD complaint: nausea, diarrhea, abdominal pain - Related Data Home Medications Medication Instructions Recorded Confirmed allopurinoL [Zyloprim] 100 mg PO BID 05/22/17 10/07/23 Sodium Bicarbonate Tab 650 mg PO BID 11/03/21 10/07/23 Cholecalciferol [Vitamin D3 (25 25 mcg PO DAILY 09/15/22 10/07/23 Mcg = 1000 Iu)] Rosuvastatin [Crestor] 20 mg PO HS 09/15/22 10/07/23 Estrogens, Conjugated Cream 1 applicator VAGINAL MOWEFR 05/24/23 10/07/23 [Premarin Vaginal Cream] Liqua Martha Protein 1 dose PO BID 05/24/23 10/07/23 calcitrioL 0.25 mcg PO MO 05/24/23 10/07/23 Potassium Chloride ER [K-Dur 10] 10 meq PO DAILY 07/05/23 10/07/23 Amiodarone [Cordarone] 200 mg PO BID 07/20/23 10/07/23 Metoprolol Tartrate [Lopressor] 12.5 mg PO DAILY 07/20/23 10/07/23 Midodrine [ProAmatine] 5 mg PO TID PRN 07/20/23 10/07/23 Cranberry Concentrate-Ascorbic 1 cap PO DAILY 10/07/23 10/07/23 Acid 4,200mg-20mg Capsule Famotidine [Pepcid] 20 mg PO BID 10/07/23 10/07/23 Ondansetron Odt [Zofran Odt] 4 mg PO BID PRN 10/07/23 10/07/23 polyethylene glycoL 3350 [Miralax] 8.5 - 17 gm PO DAILY 10/07/23 10/07/23 Previous Rx's Medication Instructions Recorded Aspirin 81 mg PO DAILY #60 tab 06/09/23 Apixaban [Eliquis] 2.5 mg PO BID 90 Days #180 tab 07/08/23 Amoxic-Pot Clav 500-125 mg 1 tab PO Q12HR 10 Days #20 tab 10/07/23 [Augmentin 500-125 mg] Diphenox-Atrop 2.5-0.025 mg 1 tab PO QID PRN #15 tablet 10/07/23 [Lomotil] Ondansetron Odt [Zofran Odt] 4 mg PO Q8HR PRN #10 tab 10/07/23 Allergies Allergy/AdvReac Type Severity Reaction Status Date / Time losartan [Losartan] Allergy Unknown Verified 10/07/23 12:38 LUANA Inhibitors AdvReac Cough Verified 10/07/23 12:38 levofloxacin [From Levaquin] AdvReac Hallucinati Verified 10/07/23 12:38 ons Review of Systems ROS Statement: Those systems with pertinent positive or pertinent negative responses have been documented in the HPI. ROS Other: All systems not noted in ROS Statement are negative. 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 History of Any Multi-Drug Resistant Organisms: VRE Date of last positivie culture/infection: 08/16/23 MDRO Source:: Urine Past Surgical History: Section, Hysterectomy, Joint Replacement, Orthopedic Surgery Additional Past Surgical History / Comment(s): 3 C-Sections, hysterectomy with vaginal repair, bilateral total knees, R shoulder acromioplasty, excision distal clavicle rotator cuff repair, bilateral cataract removal with lens implants, L breast bx-benign, varicose vein stripping bilaterally, peritoneal HD cath Past Anesthesia/Blood Transfusion Reactions: No Reported Reaction Past Psychological History: No Psychological Hx Reported Smoking Status: Never smoker Past Alcohol Use History: None Reported Past Drug Use History: None Reported - Past Family History Brother(s) Family Medical History: Renal Disease Father Family Medical History: Unable to Obtain Mother Family Medical History: Coronary Artery Disease (CAD), CVA/TIA Additional Family Medical History / Comment(s): Mother at 92 yrs of age. She had TIA's. General Exam Limitations: no limitations General appearance: alert, in no apparent distress Head exam: Present: atraumatic, normocephalic, normal inspection Respiratory exam: Present: normal lung sounds bilaterally. Absent: respiratory distress, wheezes, rales, rhonchi, stridor Cardiovascular Exam: Present: regular rate, normal rhythm, normal heart sounds. Absent: systolic murmur, diastolic murmur, rubs, gallop, clicks GI/Abdominal exam: Present: soft, tenderness (lower abdomen), normal bowel sounds. Absent: distended Neurological exam: Present: alert, oriented X3, CN II-XII intact Psychiatric exam: Present: normal affect, normal mood Skin exam: Present: warm, dry, intact, normal color. Absent: rash Course Vital Signs 10/07/23 10/07/23 10/07/23 10:03 10:20 13:12 Temperature 98.5 F 98.3 F Pulse Rate 78 75 76 Respiratory 18 18 18 Rate Blood Pressure 121/87 124/84 115/72 O2 Sat by Pulse 97 96 96 Oximetry Medical Decision Making - Medical Decision Making This is an 83 year old female who presents to the emergency department for abdominal pain and diarrhea. Was pt. sent in by a medical professional or institution? @ -No Did you speak to anyone other than the patient for history? @ -No Did you review nursing and triage notes? @ -Yes, and I agree, it is accurate with regards to the patient's symptoms. Were old charts reviewed? @ -No Differential Diagnosis? @ -Differential Abdominal Pain Women: Appendicitis, Cholecystitis, diverticulosis, ischemic bowel, pancreatitis, hepatitis, UTI, gastroenteritis, AAA, incarcerated hernia, bowel obstruction, constipation, inflammatory bowel, hepatitis, peptic ulcer disease, splenic infarction, perforated viscus, vulvitis, ovarian torsion, PID, kidney stone, placenta abruption, this is not meant to be an all-inclusive list EKG interpreted by me (3pts min.)? @ -EKG interpreted by me demonstrating the following: X-rays interpreted by me (1pt min.)? @ -Not obtained CT interpreted by me (1pt min.)? @ -CT scan of the abdomen and pelvis obtained. My interpretation identifies wall thickening of the transverse colon. U/S interpreted by me (1pt. min.)? @ -Not obtained What testing was considered but not performed? (CT, X-rays, U/S, labs)? Why? @ -None What meds were considered but not given? Why? @ -None Did you discuss the management of the patient with other professionals? @ -No Did you reconcile home meds? @ -No Was smoking cessation discussed for >3mins.? @ -No Was critical care preformed (if so, how long)? @ -No Were there social determinants of health that impacted care today? How? (Homelessness, low income, unemployed, alcoholism, drug addiction, transportation, low edu. Level, literacy, decrease access to med. care, [facility], rehab)? @ -No Was there de-escalation of care discussed even if they declined? (Discuss DNR or withdrawal of care, Hospice)? @ -No What co-morbidities impacted this encounter? (DM, HTN, Smoking, COPD, CAD, Cancer, CVA, Hep., AIDS, mental health diagnosis, sleep apnea, morbid obesity)? @ -HLD, HTN, renal disease Was patient admitted / discharged? @ -Discharged. Lab work demonstrates leukocytosis. She also has signs of d ehydration and slightly low magnesium at 1.5. Poor renal function is consistent with prior values and the patient's history of ESRD on peritoneal dialysis. COVID, influenza, and RSV testing negative. Patient given IV fluids, morphine, and Lomotil with improvement in symptoms. Magnesium replaced with 400 [address] of magnesium oxide. CT scan of the abdomen and pelvis obtained. This demonstrated moderate colonic colitis/diverticulitis. Patient does not meet septic criteria. We did discuss admission if needed depending on the severity of her symptoms, especially with her age and being on dialysis. However, patient states that her symptoms are manageable at this time and she requests to go home. She understands that she will need to return if needed. I did attempt to get a stool sample for culture and c.diff, however she was unable to provide a sample of either prior to discharge. Prescription for Augmentin and zofran provided with dosing instructions reviewed. Patient discharged home in stable condition with strict return parameters. Undiagnosed new problem with uncertain prognosis? @ -None Drug Therapy requiring intensive monitoring for toxicity (Heparin, Nitro, Insulin, Cardizem)? @ -None Were any procedures done? @ -None Diagnosis/symptom? @ -Diverticulitis Acute, or Chronic, or Acute on Chronic? @ -Acute Uncomplicated (without systemic symptoms) or Complicated (systemic symptoms)? @ -Uncomplicated Side effects of treatment? @ -None Exacerbation, Progression, or Severe Exacerbation] @ -Not applicable Poses a threat to life or bodily function? @ -Unlikely Return precautions reviewed in depth, the patient is instructed to return to the emergency department with any new, worsening, or concerning symptoms. Patient verbalized understanding. This case was discussed in detail with the attending ED physician, Dr. Mckoy. Presentation, findings, and treatment plan discussed in detail as well. - Lab Data Result diagrams: 10/07/23 10:33 10/07/23 10:33 Lab Results 10/07/23 10/07/23 10/07/23 Range/Units 10:33 10:33 10:33 WBC 15.6 H (3.8-10.6) k/uL RBC 3.63 L (3.80-5.40) m/uL Hgb 11.2 L (11.4-16.0) gm/dL Hct 33.3 L (34.0-46.0) % MCV 91.6 (80.0-100.0) fL MCH 30.7 (25.0-35.0) pg MCHC 33.5 (31.0-37.0) g/dL RDW 18.5 H (11.5-15.5) % Plt Count 260 (150-450) k/uL MPV 7.9 Neutrophils % 86 % Lymphocytes % 5 % Monocytes % 6 % Eosinophils % 1 % Basophils % 0 % Neutrophils # 13.4 H (1.3-7.7) k/uL Lymphocytes # 0.8 L (1.0-4.8) k/uL Monocytes # 0.9 (0-1.0) k/uL Eosinophils # 0.1 (0-0.7) k/uL Basophils # 0.1 (0-0.2) k/uL Anisocytosis Slight Sodium 134 L (137-145) mmol/L Potassium 4.4 (3.5-5.1) mmol/L Chloride 100 (98-107) mmol/L Carbon Dioxide 26 (22-30) mmol/L Anion Gap 8 mmol/L BUN 37 H (7-17) mg/dL Creatinine 5.75 H (0.52-1.04) mg/dL Est GFR (CKD-EPI)AfAm 7 (>60 ml/min/1.73 sqM) Est GFR (CKD-EPI)NonAf 6 (>60 ml/min/1.73 sqM) Glucose 90 (74-99) mg/dL Plasma Lactic Acid Narciso (0.7-2.0) mmol/L Calcium 8.9 (8.4-10.2) mg/dL Phosphorus 3.8 (2.5-4.5) mg/dL Magnesium 1.5 L (1.6-2.3) mg/dL Total Bilirubin 0.8 (0.2-1.3) mg/dL AST 54 H (14-36) U/L ALT 62 H (4-34) U/L Alkaline Phosphatase 88 (38-126) U/L Total Protein 5.2 L (6.3-8.2) g/dL Albumin 2.7 L (3.5-5.0) g/dL Amylase 71 (30-110) U/L Lipase 93 (23-300) U/L Influenza Type A (PCR) Not Detected (Not Detectd) Influenza Type B (PCR) Not Detected (Not Detectd) RSV (PCR) Not Detected (Not Detectd) SARS-CoV-2 (PCR) Not Detected (Not Detectd) 10/07/23 Range/Units 11:00 WBC (3.8-10.6) k/uL RBC (3.80-5.40) m/uL Hgb (11.4-16.0) gm/dL Hct (34.0-46.0) % MCV (80.0-100.0) fL MCH (25.0-35.0) pg MCHC (31.0-37.0) g/dL RDW (11.5-15.5) % Plt Count (150-450) k/uL MPV Neutrophils % % Lymphocytes % % Monocytes % % Eosinophils % % Basophils % % Neutrophils # (1.3-7.7) k/uL Lymphocytes # (1.0-4.8) k/uL Monocytes # (0-1.0) k/uL Eosinophils # (0-0.7) k/uL Basophils # (0-0.2) k/uL Anisocytosis Sodium (137-145) mmol/L Potassium (3.5-5.1) mmol/L Chloride (98-107) mmol/L Carbon Dioxide (22-30) mmol/L Anion Gap mmol/L BUN (7-17) mg/dL Creatinine (0.52-1.04) mg/dL Est GFR (CKD-EPI)AfAm (>60 ml/min/1.73 sqM) Est GFR (CKD-EPI)NonAf (>60 ml/min/1.73 sqM) Glucose (74-99) mg/dL Plasma Lactic Acid Narciso 1.6 (0.7-2.0) mmol/L Calcium (8.4-10.2) mg/dL Phosphorus (2.5-4.5) mg/dL Magnesium (1.6-2.3) mg/dL Total Bilirubin (0.2-1.3) mg/dL AST (14-36) U/L ALT (4-34) U/L Alkaline Phosphatase (38-126) U/L Total Protein (6.3-8.2) g/dL Albumin (3.5-5.0) g/dL Amylase (30-110) U/L Lipase (23-300) U/L Influenza Type A (PCR) (Not Detectd) Influenza Type B (PCR) (Not Detectd) RSV (PCR) (Not Detectd) SARS-CoV-2 (PCR) (Not Detectd) - Radiology Data Radiology results: report reviewed, image reviewed Disposition Clinical Impression: Diverticulitis Disposition: HOME SELF-CARE Instructions (If sedation given, give patient instructions): Diverticulitis (ED), Diverticulitis Diet (ED) Additional Instructions: Return to the emergency department with any new, worsening, or concerning symptoms. Take the antibiotic as prescribed for 10 days. You can take the Lomotil after each loose stool. If one tablet is not effective, you can take 2 at a time. Do not take more than 8 tablets in 24 hours. You do not need to take it if you do not have diarrhea. Take the Zofran up to every 8 hours as needed for nausea and vomiting. Follow up with your primary care provider in 1-2 days. Prescriptions: Amoxic-Pot Clav 500-125 mg [Augmentin 500-125 mg] 1 tab PO Q12HR 10 Days #20 tab Diphenox-Atrop 2.5-0.025 mg [Lomotil] 1 tab PO QID PRN #15 tablet PRN Reason: Diarrhea Ondansetron Odt [Zofran Odt] 4 mg PO Q8HR PRN #10 tab PRN Reason: Nausea And Vomiting Is patient prescribed a controlled substance at d/c from ED?: Yes When asked, does pt state using other controlled substances?: No If prescribed controlled substance>3 days was MAPS reviewed?: Prescribed <3 Days Referrals: Keith Riley DO [Primary Care Provider] - 1-2 days
[2023-10-07 10:51] LABS: Anisocytosis Slight; Basophils # (A) 0.1 k/uL (0-0.2); Basophils % (A) 0 %; Eosinophils # (A) 0.1 k/uL (0-0.7); Eosinophils % (A) 1 %; HCT 33.3 % (34.0-46.0); HGB 11.2 gm/dL (11.4-16.0); Lymphocytes # (A) 0.8 k/uL (1.0-4.8); Lymphocytes % (A) 5 %; MCH 30.7 pg (25.0-35.0); MCHC 33.5 g/dL (31.0-37.0); MCV 91.6 fL (80.0-100.0); Mean Platelet Volume 7.9; Monocytes # (A) 0.9 k/uL (0-1.0); Monocytes % (A) 6 %; Neutrophils # (A) 13.4 k/uL (1.3-7.7); Neutrophils % (A) 86 %; Platelet Count 260 k/uL (150-450); RBC 3.63 m/uL (3.80-5.40); RDW 18.5 % (11.5-15.5); WBC 15.6 k/uL (3.8-10.6)
[2023-10-07] MEDS: SODIUM CHLORIDE 0.9% 1,000 ML IV STA (10:54)
[2023-10-07] MEDS: DIPHENOX-ATROP 2.5-0.025 MG 1 EACH TAB PO STA (10:55)
[2023-10-07] MEDS: MORPHINE SULFATE 2 MG/ML SYRINGE IVP STA (10:57)
[2023-10-07 11:12] VITALS: TEMP 98.3
[2023-10-07 11:23] LABS: ALT 62 U/L (4-34); AST 54 U/L (14-36); African American GFR (CKD) 7 (>60 ml/min/1.73 sqM); Albumin 2.7 g/dL (3.5-5.0); Alkaline Phosphatase 88 U/L (38-126); Amylase 71 U/L (30-110); Anion Gap 8 mmol/L; Blood Urea Nitrogen 37 mg/dL (7-17); Calcium 8.9 mg/dL (8.4-10.2); Carbon Dioxide 26 mmol/L (22-30); Chloride 100 mmol/L (98-107); Glucose 90 mg/dL (74-99); Lipase 93 U/L (23-300); Magnesium 1.5 mg/dL (1.6-2.3); Non-African American GFR(CKD) 6 (>60 ml/min/1.73 sqM); Phosphorus 3.8 mg/dL (2.5-4.5); Sodium 134 mmol/L (137-145); Total Bilirubin 0.8 mg/dL (0.2-1.3); Total Protein 5.2 g/dL (6.3-8.2)
[2023-10-07 11:25] LABS: Potassium 4.4 mmol/L (3.5-5.1)
--- NOTE | 2023-10-07 12:09 | CT ---
EXAMINATION: CT ABDOMEN AND PELVIS WITHOUT IV CONTRAST DATE OF EXAMINATION: 10/07/2023. COMPARISON: 07/21/2023.. INDICATION: Abdominal pain. PROCEDURE: Axial CT of the abdomen and pelvis was performed with sagittal and coronal reformatted i mages without contrast enhancement. The exam is limited because some types of pathology may not be ad equately demonstrated due to lack of contrast enhancement. CT dose lowering techniques were used, to include: automated exposure control, adjustment for patient size, and/or use of iterative reconstruct ion. FINDINGS: LOWER CHEST : The visualized lung bases are clear. There are no pleural or pericardial effusions. ABDOMEN: Liver and Biliary system: Several cysts are seen within the liver as well as subcentimeter hypodensi ties are too small to fully characterize.. Adrenal glands: Normal. Kidneys and ureters: Innumerable cysts are seen within the kidneys bilaterally as well as some being hyperdense that are incompletely evaluated and may represent complex or hemorrhagic cysts with solid lesions not entirely excluded. The overall appearance is very similar to the previous examination.. Spleen: Normal. Pancreas: Normal. Gallbladder: Small gallstones are seen within the gallbladder. Lymph nodes, Peritoneum and mesentery: There is no mesenteric or retroperitoneal lymphadenopathy. Gastrointestinal tract: There are no dilated loops of bowel or free intraperitoneal air. . There is a moderate-sized sliding hiatal hernia. The appendix is normal. There is thickening of the colonic w all extending from the distal transverse colon through the descending colon with surrounding inflamma tion as well as multiple diverticuli that is likely related to a colitis/diverticulitis. Aorta/IVC: Moderate vascular calcification is seen throughout the abdominal aorta without evidence of aneurysmal dilation. IVC normal. Abdominal wall: Normal. PELVIS: Fluid: There is a small amount of free fluid within the pelvis. Peritoneal dialysis catheter is also seen within the pelvic region. Lymph Nodes: There is no pelvic or inguinal lymphadenopathy.. Urinary bladder: Normal. BONES: Multilevel degenerative disc and facet changes are seen throughout the spine. There are no ac [place] osseous abnormalities. ADDITIONAL SIGNIFICANT FINDINGS: None. IMPRESSION: 1. Moderate colonic colitis/diverticulitis as above. 2. Innumerable cysts within the kidneys bilaterally are similar to the previous examination. Some of these are complex and some of these are simple without lesions not excluded. 3. Cholelithiasis. 4. Hiatal hernia. 5. Small amount of ascites.
[2023-10-07] MEDS: MAGNESIUM OXIDE 400 MG TAB PO STA (12:26)
[2023-10-07] MEDS: AMOXIC-POT CLAV 875-125MG 1 EACH TAB PO STA (12:26)
[2023-10-07 13:29] VITALS: BP 115/72; PULSE 76
== END 2023-10-07 13:16 | disposition home or self-care (01) ==
LOC: EC 10:02
DX: K57.32 Diverticulitis of large intestine without perforation or abscess without bleeding (principal); E78.5 Hyperlipidemia, unspecified; I10 Essential (primary) hypertension; Z79.899 Other long term (current) drug therapy; Z20.822 Contact with and (suspected) exposure to COVID-19; Z88.8 Allergy status to other drugs, medicaments and biological substances; Z88.1 Allergy status to other antibiotic agents
CPT/HCPCS: 36415; 80053; 82150; 83605; 83690; 83735; 84100; 85025; 87636; 74176; 99284; 96374; 96361; J2270

== ENCOUNTER 2023-10-09 10:41 | Inpatient (IN) | payer MEDICARE ==
--- NOTE | 2023-10-09 11:31 | ED ---
Nausea/Vomiting/Diarrhea HPI - General Chief complaint: Nausea/Vomiting/Diarrhea Stated complaint: DIARRHEA Time Seen by Provider: 10/09/23 10:54 Source: patient, RN notes reviewed Mode of arrival: ambulatory Limitations: no limitations - History of Present Illness Initial comments: 83-year-old female presents emergency department with chief complaint of abdominal pain, diarrhea, weakness. She states she is significantly more weak she states that she has been taking the antibiotics that she was sent home with. Patient states similar pain has improved but she still having cramping in her abdomen no reports of fever. Patient has chronic kidney disease makes minimal to no urine does nightly home dialysis. Patient states she has been taking Lomotil at home which helps slow down the diarrhea for short period of time - Related Data Home Medications Medication Instructions Recorded Confirmed allopurinoL [Zyloprim] 100 mg PO BID 05/22/17 10/07/23 Sodium Bicarbonate Tab 650 mg PO BID 11/03/21 10/07/23 Cholecalciferol [Vitamin D3 (25 25 mcg PO DAILY 09/15/22 10/07/23 Mcg = 1000 Iu)] Rosuvastatin [Crestor] 20 mg PO HS 09/15/22 10/07/23 Estrogens, Conjugated Cream 1 applicator VAGINAL MOWEFR 05/24/23 10/07/23 [Premarin Vaginal Cream] Liqua Martha Protein 1 dose PO BID 05/24/23 10/07/23 calcitrioL 0.25 mcg PO MO 05/24/23 10/07/23 Potassium Chloride ER [K-Dur 10] 10 meq PO DAILY 07/05/23 10/07/23 Amiodarone [Cordarone] 200 mg PO BID 07/20/23 10/07/23 Metoprolol Tartrate [Lopressor] 12.5 mg PO DAILY 07/20/23 10/07/23 Midodrine [ProAmatine] 5 mg PO TID PRN 07/20/23 10/07/23 Cranberry Concentrate-Ascorbic 1 cap PO DAILY 10/07/23 10/07/23 Acid 4,200mg-20mg Capsule Famotidine [Pepcid] 20 mg PO BID 10/07/23 10/07/23 Ondansetron Odt [Zofran Odt] 4 mg PO BID PRN 10/07/23 10/07/23 polyethylene glycoL 3350 [Miralax] 8.5 - 17 gm PO DAILY 10/07/23 10/07/23 Previous Rx's Medication Instructions Recorded Aspirin 81 mg PO DAILY #60 tab 06/09/23 Apixaban [Eliquis] 2.5 mg PO BID 90 Days #180 tab 07/08/23 Amoxic-Pot Clav 500-125 mg 1 tab PO Q12HR 10 Days #20 tab 10/07/23 [Augmentin 500-125 mg] Diphenox-Atrop 2.5-0.025 mg 1 tab PO QID PRN #15 tablet 10/07/23 [Lomotil] Ondansetron Odt [Zofran Odt] 4 mg PO Q8HR PRN #10 tab 10/07/23 Allergies Allergy/AdvReac Type Severity Reaction Status Date / Time losartan [Losartan] Allergy Unknown Verified 10/09/23 10:45 LUANA Inhibitors AdvReac Cough Verified 10/09/23 10:45 levofloxacin [From Levaquin] AdvReac Hallucinati Verified 10/09/23 10:45 ons Review of Systems ROS Statement: Those systems with pertinent positive or pertinent negative responses have been documented in the HPI. ROS Other: All systems not noted in ROS Statement are negative. 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 History of Any Multi-Drug Resistant Organisms: VRE Date of last positivie culture/infection: 08/16/23 MDRO Source:: Urine Past Surgical History: Section, Hysterectomy, Joint Replacement, Orthopedic Surgery Additional Past Surgical History / Comment(s): 3 C-Sections, hysterectomy with vaginal repair, bilateral total knees, R shoulder acromioplasty, excision distal clavicle rotator cuff repair, bilateral cataract removal with lens implants, L breast bx-benign, varicose vein stripping bilaterally, peritoneal HD cath Past Anesthesia/Blood Transfusion Reactions: No Reported Reaction Past Psychological History: No Psychological Hx Reported Smoking Status: Never smoker Past Alcohol Use History: None Reported Past Drug Use History: None Reported - Past Family History Brother(s) Family Medical History: Renal Disease Father Family Medical History: Unable to Obtain Mother Family Medical History: Coronary Artery Disease (CAD), CVA/TIA Additional Family Medical History / Comment(s): Mother at 92 yrs of age. S he had TIA's. General Exam Limitations: no limitations General appearance: alert, in no apparent distress Head exam: Present: atraumatic, normocephalic, normal inspection ENT exam: Present: normal exam, normal oropharynx, mucous membranes moist Neck exam: Present: normal inspection. Absent: tenderness, meningismus, lymphadenopathy Respiratory exam: Present: normal lung sounds bilaterally. Absent: respiratory distress, wheezes, rales, rhonchi, stridor Cardiovascular Exam: Present: regular rate, normal rhythm, normal heart sounds. Absent: systolic murmur, diastolic murmur, rubs, gallop, clicks GI/Abdominal exam: Present: soft, tenderness, normal bowel sounds. Absent: distended, guarding, rebound, rigid Neurological exam: Present: alert Course Vital Signs 10/09/23 10/09/23 10:43 12:54 Temperature 98.3 F Pulse Rate 84 Respiratory 20 Rate Blood Pressure 99/60 115/73 O2 Sat by Pulse 99 Oximetry Medical Decision Making - Medical Decision Making Was pt. sent in by a medical professional or institution (, PA, SHIELD CLEANER, urgent c are, hospital, or fdc...) When possible be specific @ -No Did you speak to anyone other than the patient for history (EMS, parent, family, police, friend...)? What history was obtained from this source @ -No Did you review nursing and triage notes (agree or disagree)? Why? @ -I reviewed and agree with nursing and triage notes Were old charts reviewed (outside hosp., previous admission, EMS record, old EKG, old radiological studies, urgent care reports/EKG's, fdc records)? Report findings @ -Reviewed prior labs, CT Differential Diagnosis (chest pain, altered mental status, abdominal pain women, abdominal pain men, vaginal bleeding, weakness, fever, dyspnea, syncope, heada laura, dizziness, GI bleed, back pain, seizure, CVA, palpatations, mental health, musculoskeletal)? @ -Differential Abdominal Pain Women: Appendicitis, Cholecystitis, diverticulosis, ischemic bowel, pancreatitis, hepatitis, UTI, gastroenteritis, AAA, incarcerated hernia, bowel obstruction, constipation, inflammatory bowel, hepatitis, peptic ulcer disease, splenic infarction, perforated viscus, vulvitis, ovarian torsion, PID, kidney stone, placenta abruption, this is not meant to be an all-inclusive list EKG interpreted by me (3pts min.). @ -[None X-rays interpreted by me (1pt min.). @ -None done CT interpreted by me (1pt min.). @ -None done U/S interpreted by me (1pt. min.). @ -None done What testing was considered but not performed or refused? (CT, X-rays, U/S, labs)? Why? @ -[CT though patient had CT 2 days ago What meds were considered but not given or refused? Why? @ -None Did you discuss the management of the patient with other professionals (professionals i.e. , PA, SHIELD CLEANER, lab, RT, psych nurse, social media senior associate, car repairer apprentice, teacher, neighborhood conservation officer, case making machine operator)? Give summary @ -Some physician for admission secondary to worsening symptoms, pain, weakness, leukocytosis with hypomagnesemia and hypokalemia Was smoking cessation discussed for >3mins.? @ -No Was critical care preformed (if so, how long)? @ -No Were there social determinants of health that impacted care today? How? (Ho melessness, low income, unemployed, alcoholism, drug addiction, transportation, low edu. Level, literacy, decrease access to med. care, senior living, rehab)? @ -No Was there de-escalation of care discussed even if they declined (Discuss DNR or withdrawal of care, Hospice)? DNR status @ -No What co-morbidities impacted this encounter? (DM, HTN, Smoking, COPD, CAD, Cancer, CVA, ARF, Chemo, Hep., AIDS, mental health diagnosis, sleep apnea, morbid obesity)? @ -[End-stage renal disease Was patient admitted / discharged? Hospital course, mention meds given and route, prescriptions, significant lab abnormalities, going to OR and other pertinent info. @ -Admitted patient has worsening leukocytosis prior to 2 days ago worsening symptoms, weakness she did have mild hypotension upon arrival which has resolve d. Patient's potassium has significantly dropped from prior along with her magnesium. Patient be ordered to supplement patient will continue antibiotics, blood cultures were drawn., Stool culture was sent. Undiagnosed new problem with uncertain prognosis? @ -No Drug Therapy requiring intensive monitoring for toxicity (Heparin, Nitro, Insulin, Cardizem)? @ -No Were any procedures done? @ -No Diagnosis/symptom? @ -Diverticulitis, end-stage renal disease, hypomagnesemia, hypokalemia Acute, or Chronic, or Acute on Chronic? @ -Acute Uncomplicated (without systemic symptoms) or Complicated (systemic symptoms)? @ -Complicated Side effects of treatment? @ -No Exacerbation, Progression, or Severe Exacerbation? @ -No Poses a threat to life or bodily function? How? (Chest pain, USA, NC, pneumonia, PE, COPD, DKA, ARF, appy, cholecystitis, CVA, Diverticulitis, Homicidal, Suicidal, threat to staff... and all critical care pts) @ -Yes diverticulitis - Lab Data Result diagrams: 10/09/23 11:20 10/09/23 11:20 Lab Results 10/09/23 10/09/23 10/09/23 Range/Units 11:20 11:20 11:20 WBC 17.9 H (3.8-10.6) k/uL RBC 3.35 L (3.80-5.40) m/uL Hgb 10.3 L (11.4-16.0) gm/dL Hct 30.9 L (34.0-46.0) % MCV 92.2 (80.0-100.0) fL MCH 30.6 (25.0-35.0) pg MCHC 33.2 (31.0-37.0) g/dL RDW 18.5 H (11.5-15.5) % Plt Count 272 (150-450) k/uL MPV 7.7 Neutrophils % 88 % Lymphocytes % 5 % Monocytes % 4 % Eosinophils % 1 % Basophils % 0 % Neutrophils # 15.7 H (1.3-7.7) k/uL Lymphocytes # 1.0 (1.0-4.8) k/uL Monocytes # 0.7 (0-1.0) k/uL Eosinophils # 0.2 (0-0.7) k/uL Basophils # 0.1 (0-0.2) k/uL Anisocytosis Slight Sodium 133 L (137-145) mmol/L Potassium 3.2 L (3.5-5.1) mmol/L Chloride 101 (98-107) mmol/L Carbon Dioxide 24 (22-30) mmol/L Anion Gap 8 mmol/L BUN 37 H (7-17) mg/dL Creatinine 6.24 H (0.52-1.04) mg/dL Est GFR (CKD-EPI)AfAm 7 (>60 ml/min/1.73 sqM) Est GFR (CKD-EPI)NonAf 6 (>60 ml/min/1.73 sqM) Glucose 122 H (74-99) mg/dL Plasma Lactic Acid Narciso 1.6 (0.7-2.0) mmol/L Calcium 8.7 (8.4-10.2) mg/dL Magnesium 1.5 L (1.6-2.3) mg/dL Total Bilirubin 0.6 (0.2-1.3) mg/dL AST 61 H (14-36) U/L ALT 64 H (4-34) U/L Alkaline Phosphatase 110 (38-126) U/L Total Protein 4.5 L (6.3-8.2) g/dL Albumin 2.3 L (3.5-5.0) g/dL Lipase 89 (23-300) U/L Disposition Clinical Impression: ESRD on dialysis, Diverticulitis, Weakness, Hypokalemia Disposition: ADMITTED IP TO THIS HOSP Condition: Fair Referrals: Keith Riley DO [Primary Care Provider] - 1-2 days Time of Disposition: 13:14
[2023-10-09 11:34] LABS: Anisocytosis Slight; Basophils # (A) 0.1 k/uL (0-0.2); Basophils % (A) 0 %; Eosinophils # (A) 0.2 k/uL (0-0.7); Eosinophils % (A) 1 %; HCT 30.9 % (34.0-46.0); HGB 10.3 gm/dL (11.4-16.0); Lymphocytes % (A) 5 %; MCH 30.6 pg (25.0-35.0); MCHC 33.2 g/dL (31.0-37.0); MCV 92.2 fL (80.0-100.0); Mean Platelet Volume 7.7; Monocytes # (A) 0.7 k/uL (0-1.0); Monocytes % (A) 4 %; Neutrophils # (A) 15.7 k/uL (1.3-7.7); Neutrophils % (A) 88 %; Platelet Count 272 k/uL (150-450); RBC 3.35 m/uL (3.80-5.40); RDW 18.5 % (11.5-15.5); WBC 17.9 k/uL (3.8-10.6)
[2023-10-09 12:09] LABS: ALT 64 U/L (4-34); AST 61 U/L (14-36); African American GFR (CKD) 7 (>60 ml/min/1.73 sqM); Albumin 2.3 g/dL (3.5-5.0); Alkaline Phosphatase 110 U/L (38-126); Anion Gap 8 mmol/L; Blood Urea Nitrogen 37 mg/dL (7-17); Calcium 8.7 mg/dL (8.4-10.2); Carbon Dioxide 24 mmol/L (22-30); Chloride 101 mmol/L (98-107); Glucose 122 mg/dL (74-99); Lipase 89 U/L (23-300); Magnesium 1.5 mg/dL (1.6-2.3); Non-African American GFR(CKD) 6 (>60 ml/min/1.73 sqM); Potassium 3.2 mmol/L (3.5-5.1); Sodium 133 mmol/L (137-145); Total Bilirubin 0.6 mg/dL (0.2-1.3); Total Protein 4.5 g/dL (6.3-8.2)
[2023-10-09] MEDS ORDERED: ACETAMINOPHEN TAB 325 MG TAB PO PRN (13:15)
[2023-10-09] MEDS ORDERED: NALOXONE 0.4 MG/ML 1 ML VIAL IV PRN (13:15)
[2023-10-09] MEDS ORDERED: ONDANSETRON 4 MG/2 ML VIAL IVP PRN (13:15)
[2023-10-09] MEDS: POTASSIUM CHLORIDE ER 20 MEQ TAB.ER PO STA (13:43)
[2023-10-09] MEDS ORDERED: PIPERACILLIN-TAZOBACTAM 3.375 GM in SODIUM CHLORIDE 0.9% 100 ML IVPB SCH (16:00)
--- NOTE | 2023-10-09 16:10 | P.HPIM ---
History of Present Illness H&P Date: 10/09/23 History of Presenting Illness: Patient is a very pleasant 83-year-old female with a past medical history of ESRD on peritoneal dialysis, paroxysmal atrial fibrillation on anticoagulation with Eliquis, hypertension, hyperlipidemia, and recent hospitalization for sepsis secondary to Enterobacter infection from UTI and renal abscess from 07/21/2023 through 08/09/2023.. She was discharged home on an extended 6-week course of IV antibiotics with cefepime and has been following outpatient with infectious disease specialists, Dr. Murguia. Patient reports that shortly after completing the complete course of IV antibiotics she began to develop intermittent abdominal pain/cramping and watery diarrhea. She was treating with Imodium at home with no relief and came to the emergency department on 10/07/2023 for evaluation. At that time patient underwent a CT abdomen and pelvis without contrast which revealed moderate colonic colitis/diverticulitis with innumerable cysts within the kidneys bilaterally, cholelithiasis without acute cholec ystitis, hiatal hernia, and a small amount of ascites. She was discharged home from the ER on oral antibiotic Augmentin along with Lomotil. Patient reports she returned to the emergency department today secondary to worsening abdominal cramping and watery diarrhea. Patient describes the abdominal pain as a cramping sensation diffusely throughout her entire abdomen and is usually followed by multiple episodes of watery diarrhea. Patient reports too many episodes daily to count. She denies having any nausea or vomiting. Denies fevers, chills, diaphoresis, specific or localized abdominal pain, melena, hematochezia, or any other complaints. She reports having minimal urinary output secondary to her ESRD but denies any changes from baseline. She reports last peritoneal dialysis treatment was yesterday evening.. She underwent full evaluation in the emergency department. Vital signs upon arrival show blood pressure 99/60, heart rate 84, respiratory rate 20, temp 98.3 F, and SpO2 of 99% on room air. Labs completed and reviewed. CBC showing leukocytosis with WBC count of 17.9 and microcytic anemia with hemoglobin of 10.3 which is stable and at baseline. BMP showing mild hyponatremia with sodium of 133, hypokalemia with potassium of 3.2 and renal function consistent with ESRD with BUN of 37, creatinine 6.24, and GFR of 6. Blood glucose 122. Magnesium slightly low 1.5. Liver profile showing slightly elevated AST of 61 and ALT of 64. C. difficile toxin is positive. Patient started on oral vancomycin 125 mg p.o. every 6 hours. She was admitted under our services with consultation to nephrology and infectious disease. Review of systems: Pertinent positives and negatives as discussed in HPI, a complete review of systems was performed and all other systems are negative. Physical exam: Vital signs reviewed and stable. General: Nontoxic, no distress and appears stated age. Derm: Skin warm and dry, normal coloration for ethnicity. Head: Atraumatic, normocephalic and symmetric. Eyes: EOMs intact, no lid lag, and anicteric sclera Mouth: no lip lesions, mucus membranes moist Cardiovascular: regular rate and rhythm with normal S1S2, no murmur, positive posterior tibial pulses bilaterally, and cap refill < 2 seconds. Lungs: Respirations even, regular, and unlabored on room air. Lungs CTA bilaterally, no rhonchi, no rales, no wheezing, and no accessory muscle usage. Abdominal: soft, nontender to palpation, no guarding, no appreciable organomegaly. Peritoneal dialysis catheter left lower quadrant abdomen, no surrounding erythema or drainage. Ext: ROM intact. No gross muscle atrophy, no edema, no contractures Neuro: Speech clear, face symmetrical and CN II-XII grossly intact with no noted focal neuro deficits Psych: Alert and oriented to person, place, time, and situation. Appropriate and pleasant affect. Assessment and Plan of Care: C. difficile colitis -Continue oral vancomycin 125 mg p.o. every 6 hours. -Zofran 4 mg IVP every 8 hours as needed for nausea and/or vomiting. -Encourage oral hydration, will try to avoid IV fluid hydration as patient is a dialysis patient and produces very minimal urinary output. -Infectious disease consulted, as patient is following outpatient with him in office and recently completed 6-week course of IV antibiotics for renal abscess. -Symptomatic care and pain management -Follow-up on blood culture and stool culture results. ESRD on peritoneal dialysis -Nephrology consulted for management of peritoneal dialysis. -Continue sodium bicarb 650 mg twice daily and K-Dur 10 mEq daily. Paroxysmal atrial fibrillation. Hypertension Hyperlipidemia History of TIA -Continue Eliquis 2.5 mg twice daily, aspirin 81 mg daily, atorvastatin 40 mg nightly, amiodarone 200 mg twice daily, metoprolol 12.5 mg daily, and midodrine 5 mg 3 times daily as needed ordered for systolic pressure less than 110. Data and imaging reviewed: As stated above in HPI CODE STATUS: Full code DVT prophylaxis: [place]quis Anticipated discharge date: Clinical course to determine Anticipated discharge place: Clinical course to determine Patient was seen independently by Nurse Practitioner. This document was prepared using [employer] dictation software. Please allow for errors in ferryboat captain while rare they do occur. I reviewed the documentation as provided by the BERYL above, who is the original author of this note. 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 History of Any Multi-Drug Resistant Organisms: VRE Date of last positivie culture/infection: 08/16/23 MDRO Source:: Urine Past Surgical History: Section, Hysterectomy, Joint Replacement, Orthopedic Surgery Additional Past Surgical History / Comment(s): 3 C-Sections, hysterectomy with vaginal repair, bilateral total knees, R shoulder acromioplasty, excision distal clavicle rotator cuff repair, bilateral cataract removal with lens implants, L breast bx-benign, varicose vein stripping bilaterally, peritoneal HD cath Past Anesthesia/Blood Transfusion Reactions: No Reported Reaction Past Psychological History: No Psychological Hx Reported Smoking Status: Never smoker Past Alcohol Use History: None Reported Past Drug Use History: None Reported - Past Family History Brother(s) Family Medical History: Renal Disease Father Family Medical History: Unable to Obtain Mother Family Medical History: Coronary Artery Disease (CAD), CVA/TIA Additional Family Medical History / Comment(s): Mother at 92 yrs of age. She had TIA's. Medications and Allergies Home Medications Medication Instructions Recorded Confirmed Type allopurinoL [Zyloprim] 100 mg PO BID 05/22/17 10/09/23 History Sodium Bicarbonate Tab 650 mg PO BID 11/03/21 10/09/23 History Cholecalciferol [Vitamin D3 (25 25 mcg PO DAILY 09/15/22 10/09/23 History Mcg = 1000 Iu)] Rosuvastatin [Crestor] 20 mg PO HS 09/15/22 10/09/23 History Estrogens, Conjugated Cream 1 applicator VAGINAL MOWEFR 05/24/23 10/09/23 H istory [Premarin Vaginal Cream] Liqua Martha Protein 1 dose PO BID 05/24/23 10/09/23 History calcitrioL 0.25 mcg PO MO 05/24/23 10/09/23 History Aspirin 81 mg PO DAILY #60 tab 06/09/23 10/09/23 Rx Potassium Chloride ER [K-Dur 10] 10 meq PO DAILY 07/05/23 10/09/23 History Apixaban [Eliquis] 2.5 mg PO BID 90 Days #180 tab 07/08/23 10/09/23 Rx Amiodarone [Cordarone] 200 mg PO BID 07/20/23 10/09/23 History Metoprolol Tartrate [Lopressor] 12.5 mg PO DAILY 07/20/23 10/09/23 History Midodrine [ProAmatine] 5 mg PO TID PRN 07/20/23 10/09/23 History Amoxic-Pot Clav 500-125 mg 1 tab PO Q12HR 10 Days #20 tab 10/07/23 10/09/23 Rx [Augmentin 500-125 mg] Cranberry Concentrate-Ascorbic 1 cap PO DAILY 10/07/23 10/09/23 History Acid 4,200mg-20mg Capsule Diphenox-Atrop 2.5-0.025 mg 1 tab PO QID PRN #15 tablet 10/07/23 10/09/23 Rx [Lomotil] Famotidine [Pepcid] 20 mg PO BID 10/07/23 10/09/23 History Ondansetron Odt [Zofran Odt] 4 mg PO Q8HR PRN #10 tab 10/07/23 10/09/23 Rx polyethylene glycoL 3350 [Miralax] 8.5 - 17 gm PO DAILY 10/07/23 10/09/23 History Allergies Allergy/AdvReac Type Severity Reaction Status Date / Time losartan [Losartan] Allergy Unknown Verified 10/09/23 14:13 LUANA Inhibitors AdvReac Cough Verified 10/09/23 14:13 levofloxacin [From Levaquin] AdvReac Hallucinati Verified 10/09/23 14:13 ons Physical Exam Osteopathic Statement: *. No significant issues noted on an osteopathic structural exam other than those noted in the History and Physical/Consult. Vitals: Vital Signs Temp Pulse Resp BP Pulse Ox 10/09/23 12:54 115/73 10/09/23 10:43 98.3 F 84 20 99/60 99 Intake and Output 10/08/23 10/09/23 10/09/23 21:59 06:59 14:59 Other: Weight 73.936 kg Results CBC & Chem 7: 10/09/23 11:20 10/09/23 11:20 Labs: Abnormal Lab Results - Last 24 Hours (Table) 10/09/23 10/09/23 Range/Units 11:20 11:20 WBC 17.9 H (3.8-10.6) k/uL RBC 3.35 L (3.80-5.40) m/uL Hgb 10.3 L (11.4-16.0) gm/dL Hct 30.9 L (34.0-46.0) % RDW 18.5 H (11.5-15.5) % Neutrophils # 15.7 H (1.3-7.7) k/uL Sodium 133 L (137-145) mmol/L Potassium 3.2 L (3.5-5.1) mmol/L BUN 37 H (7-17) mg/dL Creatinine 6.24 H (0.52-1.04) mg/dL Glucose 122 H (74-99) mg/dL Magnesium 1.5 L (1.6-2.3) mg/dL AST 61 H (14-36) U/L ALT 64 H (4-34) U/L Total Protein 4.5 L (6.3-8.2) g/dL Albumin 2.3 L (3.5-5.0) g/dL
[2023-10-09] MEDS: VANCOMYCIN 125 MG CAPSULE PO SCH (16:27)
[2023-10-09] MEDS ORDERED: DIALYSIS (PERIT 1.5%) 2,000 ML 30 G/2,000 ML BAG INTRAPERIT SCH (18:45)
[2023-10-09] MEDS: allopurinoL 100 MG TAB PO SCH (20:46)
[2023-10-09] MEDS: APIXABAN 2.5 MG TABLET PO SCH (20:47)
[2023-10-09] MEDS: ATORVASTATIN 40 MG TAB PO SCH (20:47)
[2023-10-09] MEDS: SODIUM BICARBONATE TAB 650 MG TAB PO SCH (20:47)
[2023-10-09] MEDS: AMIODARONE 200 MG TAB PO SCH (20:47)
[2023-10-09] MEDS ORDERED: [UNRECOGNIZED DRUG - OTHER] PO SCH (21:00)
[2023-10-09] MEDS: DIALYSIS (PERIT 1.5%) 2,000 ML 30 G/2,000 ML BAG INTRAPERIT SCH (22:25)
[2023-10-10] MEDS: CHOLECALCIFEROL 25 MCG (1000 IU) TABLET PO SCH (10:35)
[2023-10-10] MEDS: POTASSIUM CHLORIDE ER 10 MEQ TAB.ER.PRT PO SCH (10:35)
[2023-10-10] MEDS: ASPIRIN 81 MG PO SCH (10:35)
[2023-10-10] MEDS: FAMOTIDINE 20 MG TAB PO SCH (10:35)
[2023-10-10] MEDS: METOPROLOL TARTRATE 12.5 MG TAB PO SCH (10:38)
[2023-10-10 11:12] LABS: Anisocytosis Slight; Basophils # (A) 0.1 k/uL (0-0.2); Basophils % (A) 0 %; Eosinophils # (A) 0.2 k/uL (0-0.7); Eosinophils % (A) 1 %; HCT 31.1 % (34.0-46.0); HGB 10.2 gm/dL (11.4-16.0); Lymphocytes % (A) 6 %; MCH 30.7 pg (25.0-35.0); MCHC 32.9 g/dL (31.0-37.0); MCV 93.4 fL (80.0-100.0); Mean Platelet Volume 7.9; Monocytes # (A) 0.8 k/uL (0-1.0); Monocytes % (A) 5 %; Neutrophils # (A) 14.1 k/uL (1.3-7.7); Neutrophils % (A) 85 %; Platelet Count 270 k/uL (150-450); RBC 3.33 m/uL (3.80-5.40); RDW 18.4 % (11.5-15.5); WBC 16.6 k/uL (3.8-10.6)
[2023-10-10 11:51] LABS: African American GFR (CKD) 7 (>60 ml/min/1.73 sqM); Anion Gap 2 mmol/L; Blood Urea Nitrogen 36 mg/dL (7-17); Calcium 8.8 mg/dL (8.4-10.2); Carbon Dioxide 29 mmol/L (22-30); Chloride 101 mmol/L (98-107); Glucose 91 mg/dL (74-99); Magnesium 1.5 mg/dL (1.6-2.3); Non-African American GFR(CKD) 6 (>60 ml/min/1.73 sqM); Potassium 3.6 mmol/L (3.5-5.1); Sodium 132 mmol/L (137-145)
[2023-10-10 12:20] VITALS: BMI 27.9
--- NOTE | 2023-10-10 12:28 | P.NPCON ---
History of Present Illness - Reason for Consult end stage renal disease - History of Present Illness Reason for consultation: End-stage renal disease History of present illness: Patient is a 83-year-old female seen in renal consultation for end-stage renal disease. She is maintained on peritoneal dialysis. Patient came to the hospital due to diarrhea that started last week. Patient states she came to the hospital for evaluation but was subsequently discharged. Patient states she has had 3 watery bowel movement so far today already. She did test positive for C. difficile and is receiving oral vancomycin. She denies any trouble with peritoneal dialysis exchanges. States dialysate is clear. No abdominal pain. Hemodynamically stable. No chest pain or shortness of breath. Vital signs are stable. General: No acute distress. HEENT: Head exam is unremarkable. LUNGS: No audible rhonchi or wheezes. HEART: Rate and Rhythm are regular. ABDOMEN: Nontender. EXTREMITITES: No edema. 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 History of Any Multi-Drug Resistant Organisms: VRE Date of last positivie culture/infection: 08/16/23 MDRO Source:: Urine Past Surgical History: Section, Hysterectomy, Joint Replacement, Orthopedic Surgery Additional Past Surgical History / Comment(s): 3 C-Sections, hysterectomy with vaginal repair, bilateral total knees, R shoulder acromioplasty, excision distal clavicle rotator cuff repair, bilateral cataract removal with lens implants, L breast bx-benign, varicose vein stripping bilaterally, peritoneal HD cath Past Anesthesia/Blood Transfusion Reactions: No Reported Reaction Past Psychological History: No Psychological Hx Reported Smoking Status: Never smoker Past Alcohol Use History: None Reported Past Drug Use History: None Reported - Past Family History Brother(s) Family Medical History: Renal Disease Father Family Medical History: Unable to Obtain Mother Family Medical History: Coronary Artery Disease (CAD), CVA/TIA Additional Family Medical History / Comment(s): Mother at 92 yrs of age. She had TIA's. Medications and Allergies Home Medications Medication Instructions Recorded Confirmed Type allopurinoL [Zyloprim] 100 mg PO BID 05/22/17 10/09/23 History Sodium Bicarbonate Tab 650 mg PO BID 11/03/21 10/09/23 History Cholecalciferol [Vitamin D3 (25 25 mcg PO DAILY 09/15/22 10/09/23 History Mcg = 1000 Iu)] Rosuvastatin [Crestor] 20 mg PO HS 09/15/22 10/09/23 History Estrogens, Conjugated Cream 1 applicator VAGINAL MOWEFR 05/24/23 10/09/23 History [Premarin Vaginal Cream] Liqua Martha Protein 1 dose PO BID 05/24/23 10/09/23 History calcitrioL 0.25 mcg PO MO 05/24/23 10/09/23 History Aspirin 81 mg PO DAILY #60 tab 06/09/23 10/09/23 Rx Potassium Chloride ER [K-Dur 10] 10 meq PO DAILY 07/05/23 10/09/23 History Apixaban [Eliquis] 2.5 mg PO BID 90 Days #180 tab 07/08/23 10/09/23 Rx Amiodarone [Cordarone] 200 mg PO BID 07/20/23 10/09/23 History Metoprolol Tartrate [Lopressor] 12.5 mg PO DAILY 07/20/23 10/09/23 History Midodrine [ProAmatine] 5 mg PO TID PRN 07/20/23 10/09/23 History Amoxic-Pot Clav 500-125 mg 1 tab PO Q12HR 10 Days #20 tab 10/07/23 10/09/23 Rx [Augmentin 500-125 mg] Cranberry Concentrate-Ascorbic 1 cap PO DAILY 10/07/23 10/09/23 History Acid 4,200mg-20mg Capsule Diphenox-Atrop 2.5-0.025 mg 1 tab PO QID PRN #15 tablet 10/07/23 10/09/23 Rx [Lomotil] Famotidine [Pepcid] 20 mg PO BID 10/07/23 10/09/23 History Ondansetron Odt [Zofran Odt] 4 mg PO Q8HR PRN #10 tab 10/07/23 10/09/23 Rx polyethylene glycoL 3350 [Miralax] 8.5 - 17 gm PO DAILY 10/07/23 10/09/23 History Allergies Allergy/AdvReac Type Severity Reaction Status Date / Time losartan [Losartan] Allergy Unknown Verified 10/09/23 14:13 LUAAN Inhibitors AdvReac Cough Verified 10/09/23 14:13 levofloxacin [From Levaquin] AdvReac Hallucinati Verified 10/09/23 14:13 ons Physical Exam Vitals: Vital Signs Temp Pulse Pulse Resp BP BP Pulse Ox 10/10/23 07:00 97.4 F L 84 16 110/76 95 10/10/23 02:00 98.6 F 86 16 101/65 94 L 10/10/23 01:23 96 16 10/09/23 20:00 99.2 F 96 16 100/67 94 L 10/09/23 17:23 78 15 10/09/23 17:00 98.3 F 78 15 104/72 93 L 10/09/23 16:00 71 18 115/64 95 10/09/23 12:54 115/73 Intake and Output 10/09/23 10/10/23 10/10/23 22:59 06:59 14:59 Intake Total 118 Balance 118 Intake: Oral 118 Other: Voiding Method Toilet Toilet # Voids 1 # Bowel Movements 3 1 Weight 73.936 kg 73.936 kg Results - Lab Results Most recent lab results Calcium 8.8 mg/dL (8.4-10.2) 10/10/23 10:55 Magnesium 1.5 mg/dL (1.6-2.3) L 10/10/23 10:55 10/10/23 10:55 10/10/23 10:55 Assessment and Plan Plan: Assessment: 1. End-stage renal disease maintained on peritoneal dialysis. 2. C. difficile colitis. On oral vancomycin. 3. Chronic kidney disease mineral bone disease maintained on calcitriol. 4. History of A-fib. Rate controlled. 5. Anemia of chronic kidney disease. 6. Hypokalemia from poor intake and PD losses. 7. Hypomagnesemia from GI losses. Plan: Maintain current PD exchanges. Add Aranesp. Replace potassium and magnesium. Thank you for the consultation. I will continue to follow the patient with you during her hospital stay.
[2023-10-10] MEDS: ESTROGENS, CONJUGATED 0.625 MG/GM VAGINAL CREAM 42.5 GM TUBE VAGINAL SCH (13:31)
[2023-10-10] MEDS: POTASSIUM CHLORIDE ER 20 MEQ TAB.ER PO STA (13:33)
[2023-10-10] MEDS: MAGNESIUM SULFATE-D5W PMX 1 GM in DEXTROSE/WATER 1 100ML.BAG IVPB SCH (14:08)
--- NOTE | 2023-10-10 16:25 | P.PN ---
Subjective Progress Note Date: 10/10/23 Hospital Course: Patient is a very pleasant 83-year-old female with a past medical history of ESRD on peritoneal dialysis, paroxysmal atrial fibrillation on anticoagulation with Eliquis, hypertension, hyperlipidemia, and recent hospitalization for sepsis secondary to Enterobacter infection from UTI and renal abscess from 07/21/2023 through 08/09/2023.. She was discharged home on an extended 6-week course of IV antibiotics with cefepime and has been following outpatient with infectious disease specialists, Dr. Murguia. Patient reports that shortly after completing the complete course of IV antibiotics she began to develop intermittent abdominal pain/cramping and watery diarrhea. She was treating with Imodium at home with no relief and came to the emergency department on 10/07/2023 for evaluation. At that time patient underwent a CT abdomen and pelvis without contrast which revealed moderate colonic colitis/diverticulitis with innumerable cysts within the kidneys bilaterally, cholelithiasis without acute cholecystitis, hiatal hernia, and a small amount of ascites. She was discharged home from the ER on oral antibiotic Augmentin along with Lomotil. Patient reports she returned to the emergency department today secondary to worsening abdominal cramping and watery diarrhea. Patient describes the abdominal pain as a cramping sensation diffusely throughout her entire abdomen and is usually followed by multiple episodes of watery diarrhea. Patient reports too many episodes daily to count. She denies having any nausea or vomiting. Denies fevers, chills, diaphoresis, specific or localized abdominal pain, melena, hematochezia, or any other complaints. She reports having minimal urinary output secondary to her ESRD but denies any changes from baseline. She reports last peritoneal dialysis treatment was yesterday evening.. She underwent full evaluation in the emergency department. Vital signs upon arrival show blood pressure 99/60, heart rate 84, respiratory rate 20, temp 98.3 F, and SpO2 of 99% on room air. Labs completed and reviewed. CBC showing leukocytosis with WBC count of 17.9 and microcytic anemia with hemoglobin of 10.3 which is stable and at baseline. BMP showing mild hyponatremia with sodium of 133, hypokalemia with potassium of 3.2 and renal function consistent with ESRD with BUN of 37, creatinine 6.24, and GFR of 6. Blood glucose 122. Magnesium slightly low 1.5. Liver profile showing slightly elevated AST of 61 and ALT of 64. C. difficile toxin is positive. Patient started on oral vancomycin 125 mg p.o. every 6 hours. She was admitted under our services with consultation to nephrology and infectious disease. Physical exam: Patient seen and fully evaluated at bedside this morning. Patient continues to report weakness and fatigue secondary to frequent episodes of diarrhea. Patient reports having approximately 7 episodes of diarrhea throughout the night. Currently she reports abdominal cramping/pain has subsided. Vital signs reviewed and stable. General: Nontoxic, no distress and appears stated age. Derm: Skin warm and dry, normal coloration for ethnicity. Head: Atraumatic, normocephalic and symmetric. Eyes: EOMs intact, no lid lag, and anicteric sclera Mouth: no lip lesions, mucus membranes moist Cardiovascular: regular rate and rhythm with normal S1S2, no murmur, positive posterior tibial pulses bilaterally, and cap refill < 2 seconds. Lungs: Respirations even, regular, and unlabored on room air. Lungs CTA bilaterally, no rhonchi, no rales, no wheezing, and no accessory muscle usage. Abdominal: soft, nontender to palpation, no guarding, no appreciable organomegaly. Peritoneal dialysis catheter left lower quadrant abdomen, no surrounding erythema or drainage. Ext: ROM intact. No gross muscle atrophy, no edema, no contractures Neuro: Speech clear, face symmetrical and CN II-XII grossly intact with no noted focal neuro deficits Psych: Alert and oriented to person, place, time, and situation. Appropriate and pleasant affect. Assessment and Plan of Care: C. difficile colitis -Continue oral vancomycin 125 mg p.o. every 6 hours. -Zofran 4 mg IVP every 8 hours as needed for nausea and/or vomiting. -Encourage oral hydration, will try to avoid IV fluid hydration as patient is a dialysis patient and produces very minimal urinary output. -Infectious disease consulted, as patient is following outpatient with him in office and recently completed 6-week course of IV antibiotics for renal abscess. -Symptomatic care and pain management -Follow-up on blood culture and stool culture results. ESRD on peritoneal dialysis -Nephrology consulted for management of peritoneal dialysis. -Continue sodium bicarb 650 mg twice daily and K-Dur 10 mEq daily. Paroxysmal atrial fibrillation. Hypertension Hyperlipidemia History of TIA -Continue Eliquis 2.5 mg twice daily, aspirin 81 mg daily, atorvastatin 40 mg nightly, amiodarone 200 mg twice daily, metoprolol 12.5 mg daily, and midodrine 5 mg 3 times daily as needed ordered for systolic pressure less than 110. Data and imaging reviewed: Repeat morning labs completed. CBC showing slight improvement leukocytosis with WBC count decreasing from 17.9 down to 16.6 and stable normocytic anemia with a hemoglobin of 10.2. BMP showing mild hyponatremia with sodium of 132 and resolution of hypokalemia with potassium increasing from previous 3.2-3.6 this morning. Renal function remains at baseline with patient's ESRD with BUN of 36, creatinine 6.29, GFR of 6. Vital signs reviewed. Blood pressure 110/76, heart rate 84, respiratory rate 16, temp 97.4 F, and SpO2 of 95% on room air. CODE STATUS: Full code DVT prophylaxis: Eliquis Anticipated discharge date: Clinical course to determine Anticipated discharge place: Clinical course to determine Patient was seen independently by Nurse Practitioner. This document was prepared using [email or web address] dictation software. Please allow for errors in perinatal director while rare they do occur. I reviewed the documentation as provided by the BERYL above, who is the original author of this note. I agree with the documented assessment and plan, with the following changes: none Objective - Vital Signs Vital signs: Vital Signs Temp 98.6 F 10/10/23 02:00 Pulse 86 10/10/23 02:00 Resp 16 10/10/23 02:00 BP 101/65 10/10/23 02:00 Pulse Ox 94 L 10/10/23 02:00 FiO2 Intake & Output 10/09/23 10/10/23 10/10/23 18:59 06:59 18:59 Weight 73.936 kg Other: Voiding Method Toilet Toilet # Voids 1 # Bowel Movements 1 - Labs CBC & Chem 7: 10/10/23 10:55 10/10/23 10:55 Labs: Abnormal Lab Results - Last 24 Hours (Table) 10/09/23 10/09/23 10/09/23 Range/Units 11:20 11:20 12:35 WBC 17.9 H (3.8-10.6) k/uL RBC 3.35 L (3.80-5.40) m/uL Hgb 10.3 L (11.4-16.0) gm/dL Hct 30.9 L (34.0-46.0) % RDW 18.5 H (11.5-15.5) % Neutrophils # 15.7 H (1.3-7.7) k/uL Sodium 133 L (137-145) mmol/L Potassium 3.2 L (3.5-5.1) mmol/L BUN 37 H (7-17) mg/dL Creatinine 6.24 H (0.52-1.04) mg/dL Glucose 122 H (74-99) mg/dL Magnesium 1.5 L (1.6-2.3) mg/dL AST 61 H (14-36) U/L ALT 64 H (4-34) U/L Total Protein 4.5 L (6.3-8.2) g/dL Albumin 2.3 L (3.5-5.0) g/dL C. difficile (EIA) Intrp Positive A (Negative)
[2023-10-10] MEDS: DARBEPOETIN ALFA 40 MCG/0.4 ML SYRINGE SQ SCH (16:29)
[2023-10-10] MEDS: MIDODRINE 5 MG TAB PO PRN (18:27)
--- NOTE | 2023-10-10 22:59 | P.CONS ---
History of Present Illness - Reason for Consult Consult date: 10/10/23 C. difficile Requesting physician: Paul Ryan - Chief Complaint Diarrhea x few days - History of Present Illness Patient is a 83-year-old female with a past medical history negative for hypertension hyperlipidemia renal disease on peritoneal dialysis and this pa tient was recently did have multiple admission to the hospital for left renal abscess for the patient has completed her course of antibiotic therapy and has been off antibiotic for couple of weeks now patient mention she did follow with urology from [facility] and apparently the patient did have a repeat CT that was negative for any abscess and no further treatment was done patient is now presenting to [facility] ER complaining of intermittent abdominal pain and diarrhea that apparently has been getting worse patient was evaluated at [facility] ER on 10/07/2023 she did have seen abdominal pelvis with moderate colonic colitis diverticulitis and the patient was dis charged from the ER on Augmentin and Levaquin subsequently presenting to the hospital worsening abdominal pain and cramping patient did have a stool for C. difficile which came back positive patient was started on oral vancomycin infectious disease was consulted for further management of antibiotic therapy patient currently denies having any fever or any chills denies any headache or URI symptoms. Denies any further nausea no vomiting no chest pain shortness of breath or cough still complaining of significant watery stool with no blood or mucus in the stool patient on presentation to the hospital was afebrile did have some low-grade fever of 99 F patient did have a white count of 16.6 with a left shift BUN/creatinine has been elevated liver isms are mildly elevated Review of Systems Positive point and negatives has been mentioned in the HPI, complete review of systems was performed and all other systems are negative Past Medical History Past Medical History: CVA/TIA, Hyperlipidemia, Hypertension, Renal Disease Additional Past Medical History / Comment(s): TIA, ESRD on periotneal dialysis, UTIs, dizziness, gout, arthiritis, back pain with UTIs. History of Any Multi-Drug Resistant Organisms: VRE Year Discovered:: 08/16/23 MDRO Source:: Urine Past Surgical History: Section, Hysterectomy, Joint Replacement, Orthopedic Surgery Additional Past Surgical History / Comment(s): 3 C-Sections, hysterectomy with vaginal repair, bilateral total knees, R shoulder acromioplasty, excision distal clavicle rotator cuff repair, bilateral cataract removal with lens implants, L breast bx-benign, varicose vein stripping bilaterally, peritoneal HD cath Past Anesthesia/Blood Transfusion Reactions: No Reported Reaction Past Psychological History: No Psychological Hx Reported Smoking Status: Never smoker Past Alcohol Use History: None Reported Past Drug Use History: None Reported - Past Family History Brother(s) Family Medical History: Renal Disease Father Family Medical History: Unable to Obtain Mother Family Medical History: Coronary Artery Disease (CAD), CVA/TIA Additional Family Medical History / Comment(s): Mother at 92 yrs of age. She had TIA's. Medications and Allergies Home Medications Medication Instructions Recorded Confirmed Type allopurinoL [Zyloprim] 100 mg PO BID 05/22/17 10/09/23 History Sodium Bicarbonate Tab 650 mg PO BID 11/03/21 10/09/23 History Cholecalciferol [Vitamin D3 (25 25 mcg PO DAILY 09/15/22 10/09/23 History Mcg = 1000 Iu)] Rosuvastatin [Crestor] 20 mg PO HS 09/15/22 10/09/23 History Estrogens, Conjugated Cream 1 applicator VAGINAL MOWEFR 05/24/23 10/09/23 History [Premarin Vaginal Cream] Liqua Martha Protein 1 dose PO BID 05/24/23 10/09/23 History calcitrioL 0.25 mcg PO MO 05/24/23 10/09/23 History Aspirin 81 mg PO DAILY #60 tab 06/09/23 10/09/23 Rx Potassium Chloride ER [K-Dur 10] 10 meq PO DAILY 07/05/23 10/09/23 History Apixaban [Eliquis] 2.5 mg PO BID 90 Days #180 tab 07/08/23 10/09/23 Rx Amiodarone [Cordarone] 200 mg PO BID 07/20/23 10/09/23 History Metoprolol Tartrate [Lopressor] 12.5 mg PO DAILY 07/20/23 10/09/23 History Midodrine [ProAmatine] 5 mg PO TID PRN 07/20/23 10/09/23 History Cranberry Concentrate-Ascorbic 1 cap PO DAILY 10/07/23 10/09/23 History Acid 4,200mg-20mg Capsule Diphenox-Atrop 2.5-0.025 mg 1 tab PO QID PRN #15 tablet 10/07/23 10/09/23 Rx [Lomotil] Famotidine [Pepcid] 20 mg PO BID 10/07/23 10/09/23 History Ondansetron Odt [Zofran ODT] 4 mg PO Q8HR PRN #10 tab 10/07/23 10/09/23 Rx Cholestyramine (with Sugar) 4 gm PO BID@1000,2100 PRN #20 10/12/23 Rx [Questran Packet] packet Vancomycin HCl [Vancocin HCl] 250 mg PO Q6HR #52 cap 10/12/23 Rx polyethylene glycoL 3350 [Miralax] 8.5 - 17 gm PO DAILY PRN #0 10/12/23 10/09/23 Rx Allergies Allergy/AdvReac Type Severity Reaction Status Date / Time losartan [Losartan] Allergy Unknown Verified 10/09/23 14:13 LUANA Inhibitors AdvReac Cough Verified 10/09/23 14:13 levofloxacin [From Levaquin] AdvReac Hallucinati Verified 10/09/23 14:13 ons Physical Exam Vitals: Vital Signs Temp Pulse Pulse Resp BP BP Pulse Ox 10/10/23 07:00 97.4 F L 84 16 110/76 95 10/10/23 02:00 98.6 F 86 16 101/65 94 L 10/10/23 01:23 96 16 10/09/23 20:00 99.2 F 96 16 100/67 94 L 10/09/23 17:23 78 15 10/09/23 17:00 98.3 F 78 15 104/72 93 L 10/09/23 16:00 71 18 115/64 95 10/09/23 12:54 115/73 Intake and Output 10/09/23 10/10/23 10/10/23 22:59 06:59 14:59 Other: Voiding Method Toilet Toilet # Voids 1 # Bowel Movements 3 1 Weight 73.936 kg GENERAL DESCRIPTION: Elderly female lying in bed, no distress. No tachypnea or accessory muscle of respiration use. HEENT: Shows Pallor , no scleral icterus. Oral mucous membrane is dry. No pharyn geal erythema or thrush NECK: Trachea central, no thyromegaly. LUNGS: Unlabored breathing. Clear to auscultation anteriorly. No wheeze or crackle. HEART: S1, S2, regular rate and rhythm. No loud murmur ABDOMEN: Soft, no tenderness , guarding or rigidity, no organomegaly EXTREMITIES: No edema of feet. SKIN: No rash, no masses palpable. NEUROLOGICAL: The patient is awake, alert, oriented x3, mood and affect normal. Results CBC & Chem 7: 10/12/23 06:11 10/12/23 06:11 Labs: Abnormal Lab Results - Last 24 Hours (Table) 10/09/23 10/09/23 10/09/23 Range/Units 11:20 11:20 12:35 WBC 17.9 H (3.8-10.6) k/uL RBC 3.35 L (3.80-5.40) m/uL Hgb 10.3 L (11.4-16.0) gm/dL Hct 30.9 L (34.0-46.0) % RDW 18.5 H (11.5-15.5) % Neutrophils # 15.7 H (1.3-7.7) k/uL Sodium 133 L (137-145) mmol/L Potassium 3.2 L (3.5-5.1) mmol/L BUN 37 H (7-17) mg/dL Creatinine 6.24 H (0.52-1.04) mg/dL Glucose 122 H (74-99) mg/dL Magnesium 1.5 L (1.6-2.3) mg/dL AST 61 H (14-36) U/L ALT 64 H (4-34) U/L Total Protein 4.5 L (6.3-8.2) g/dL Albumin 2.3 L (3.5-5.0) g/dL C. difficile (EIA) Intrp Positive A (Negative) Assessment and Plan (1) C. difficile colitis Status: Acute Code(s): A04.72 - ENTEROCOLITIS D/T CLOSTRIDIUM DIFFICILE, NOT SPCF RECUR SNOMED Code(s): 151480802 (2) Leukocytosis Status: Acute Code(s): D72.829 - ELEVATED WHITE BLOOD CELL COUNT, UNSPECIFIED SNOMED Code(s): 520575803 Plan: 1patient was in the hospital with crampy abdominal pain along with significant diarrhea and this patient has been exposed antibiotic for her renal abscess with recent exposure to the Augmentin prescribed from the ER for presumed diverticulitis now with worsening abdominal pain and diarrhea elevated white count source likely C. difficile colitis 2-patient has been encouraged to increase her probiotic and yogurt intake 3-patient CT did show her moderate thickening of the colon extending from the distal transverse colon all the way through the descending colon keeping in mind extensive colitis we will increase her dose of vancomycin to 500 mg p.o. every 6 hours, if the patient did have persistent diarrhea will add Questran for symptomatic relief and avoid antimotility agent We will follow on clinical condition and cultures to further adjust medication if needed Thank you for this consultation we will follow the patient along with you Dictation was produced using [employer] dictation software. please excuse any grammatical, word or spelling errors. Time with Patient: Greater than 30
[2023-10-10] MEDS: VANCOMYCIN 125 MG CAPSULE PO SCH (23:27)
[2023-10-11] MEDS: LACTOBACILLUS ACIDOPHILUS/PECT 1 EACH CAPSULE PO SCH (08:26)
[2023-10-11 08:39] LABS: BUN/Creat Ratio 4.56 Ratio (12.00-20.00); Blood Urea Nitrogen 28.7 mg/dL (9.0-27.0); Glucose 95 mg/dL (70-110); HGB 10.3 g/dL (12.0-15.0); MCH 29.7 pg (27.0-32.0); MCHC 33.2 g/dL (32.0-37.0); MCV 89.3 FL (80.0-97.0); Mean Platelet Volume 9.8 FL (9.5-12.2); NRBC Per 100 WBC 0 X 10*3/uL (0.00-0.01); Platelet Count 290 X 10*3/uL (140-440); RBC 3.47 X 10*6/uL (4.10-5.20); RDW 18.7 % (11.5-14.5); WBC 12.36 X 10*3/uL (4.50-10.00)
[2023-10-11 08:40] LABS: Carbon Dioxide 24.7 mmol/L (21.6-31.8); Chloride 98 mmol/L (96-109); Magnesium 2.1 mg/dL (1.5-2.4); Potassium 3.7 mmol/L (3.5-5.5); Sodium 136 mmol/L (135-145)
--- NOTE | 2023-10-11 09:31 | P.PN ---
Subjective Progress Note Date: 10/11/23 Hospital Course: Patient is a very pleasant 83-year-old female with a past medical history of ESRD on peritoneal dialysis, paroxysmal atrial fibrillation on anticoagulation with Eliquis, hypertension, hyperlipidemia, and recent hospitalization for sepsis secondary to Enterobacter infection from UTI and renal abscess from 07/21/2023 through 08/09/2023.. She was discharged home on an extended 6-week course of IV antibiotics with cefepime and has been following outpatient with infectious disease specialists, Dr. Murguia. Patient reports that shortly after completing the complete course of IV antibiotics she began to develop intermittent abdominal pain/cramping and watery diarrhea. She was treating with Imodium at home with no relief and came to the emergency department on 10/07/2023 for evaluation. At that time patient underwent a CT abdomen and pelvis without contrast which revealed moderate colonic colitis/diverticulitis with innumerable cysts within the kidneys bilaterally, cholelithiasis without acute cholecystitis, hiatal hernia, and a small amount of ascites. She was discharged home from the ER on oral antibiotic Augmentin along with Lomotil. Patient reports she returned to the emergency department today secondary to worsening abdominal cramping and watery diarrhea. Patient describes the abdominal pain as a cramping sensation diffusely throughout her entire abdomen and is usually followed by multiple episodes of watery diarrhea. Patient reports too many episodes daily to count. She denies having any nausea or vomiting. Denies fevers, chills, diaphoresis, specific or localized abdominal pain, melena, hematochezia, or any other complaints. She reports having minimal urinary output secondary to her ESRD but denies any changes from baseline. She reports last peritoneal dialysis treatment was yesterday evening.. She underwent full evaluation in the emergency department. Vital signs upon arrival show blood pressure 99/60, heart rate 84, respiratory rate 20, temp 98.3 F, and SpO2 of 99% on room air. Labs completed and reviewed. CBC showing leukocytosis with WBC count of 17.9 and microcytic anemia with hemoglobin of 10.3 which is stable and at baseline. BMP showing mild hyponatremia with sodium of 133, hypokalemia with potassium of 3.2 and renal function consistent with ESRD with BUN of 37, creatinine 6.24, and GFR of 6. Blood glucose 122. Magnesium slightly low 1.5. Liver profile showing slightly elevated AST of 61 and ALT of 64. C. difficile toxin is positive. Patient started on oral vancomycin 125 mg p.o. every 6 hours. She was admitted under our services with consultation to nephrology and infectious disease. Physical exam: Patient seen and fully evaluated at bedside this morning. Patient reports episode of nausea and vomiting yesterday evening.. Patient and RN at bedside reports patient has had 3 episodes of diarrhea so far this morning and states she continues to have approximately 10 episodes or more daily. Patient reports diarrhea remains watery and denies any noted blood or dark tarry colored stools. Patient does report a couple episodes of diarrhea containing mucus but otherwise reports watery liquid stool. She reports her abdominal pain/cramping is controlled at this time and denies any other needs, questions, or complaints at time of examination.. Vital signs reviewed and stable. General: Nontoxic, no distress and appears stated age. Derm: Skin warm and dry, normal coloration for ethnicity. Head: Atraumatic, normocephalic and symmetric. Eyes: EOMs intact, no lid lag, and anicteric sclera Mouth: no lip lesions, mucus membranes moist Cardiovascular: regular rate and rhythm with normal S1S2, no murmur, positive posterior tibial pulses bilaterally, and cap refill < 2 seconds. Lungs: Respirations even, regular, and unlabored on room air. Lungs CTA bilaterally, no rhonchi, no rales, no wheezing, and no accessory muscle usage. Abdominal: soft, nontender to palpation, no guarding, no appreciable organomegaly. Peritoneal dialysis catheter left lower quadrant abdomen, no surrounding erythema or drainage. Ext: ROM intact. No gross muscle atrophy, no edema, no contractures Neuro: Speech clear, face symmetrical and CN II-XII grossly intact with no noted focal neuro deficits Psych: Alert and oriented to person, place, time, and situation. Appropriate and pleasant affect. Assessment and Plan of Care: C. difficile colitis Sepsis upon arrival, secondary to above -Continue oral vancomycin 500 mg p.o. every 6 hours. -Zofran 4 mg IVP every 8 hours as needed for nausea and/or vomiting. -Encourage oral hydration, will try to avoid IV fluid hydration as patient is a dialysis patient and produces very minimal urinary output. -Infectious disease following -Symptomatic care and pain management -Blood cultures showing no growth to date -Follow-up on stool culture results. ESRD on peritoneal dialysis -Nephrology consulted for management of peritoneal dialysis. -Continue sodium bicarb 650 mg twice daily and K-Dur 10 mEq daily. Paroxysmal atrial fibrillation. Hypertension Hyperlipidemia History of TIA -Continue Eliquis 2.5 mg twice daily, aspirin 81 mg daily, atorvastatin 40 mg nightly, amiodarone 200 mg twice daily, metoprolol 12.5 mg daily, and midodrine 5 mg 3 times daily as needed ordered for systolic pressure less than 110. Data and imaging reviewed: Repeat morning labs completed. CBC showing improvement of WBC with WBC count decreasing to 12.36 from initial 17.9 and hemoglobin remained stable at 10.3. BMP consistent with ESRD with BUN of 28.7, creatinine 6.3, and GFR of 6. Vital signs reviewed. Blood pressure 117/82, heart rate 70, respiratory rate 15, temp 97.7 F, and SpO2 of 98% on room air. CODE STATUS: Full code DVT prophylaxis: Eliquis Anticipated discharge date: Clinical course to determine Anticipated discharge place: Clinical course to determine Patient was seen independently by Nurse Practitioner. This document was prepared using [employer] dictation software. Please allow for errors in state archivist while rare they do occur. Paul Ryan NP rendered care for this patient independently, reviewed the findings and plan as documented in the note above. I did not physically speak with or examine the patient on this date. Objective - Vital Signs Vital signs: Vital Signs Temp 97.9 F 10/11/23 02:19 Pulse 76 10/11/23 02:19 Resp 15 10/11/23 02:19 BP 114/68 10/11/23 02:19 Pulse Ox 96 10/11/23 02:19 FiO2 Intake & Output 10/10/23 10/11/23 10/11/23 18:59 06:59 18:59 Intake Total 652 Balance 652 Weight 73.936 kg Intake: Oral 652 Other: Voiding Method Toilet Toilet # Voids 1 1 # Bowel Movements 1 0 - Labs CBC & Chem 7: 10/11/23 05:48 10/11/23 05:48 Labs: Abnormal Lab Results - Last 24 Hours (Table) 10/10/23 10/10/23 Range/Units 10:55 10:55 WBC 16.6 H (3.8-10.6) k/uL RBC 3.33 L (3.80-5.40) m/uL Hgb 10.2 L (11.4-16.0) gm/dL Hct 31.1 L (34.0-46.0) % RDW 18.4 H (11.5-15.5) % Neutrophils # 14.1 H (1.3-7.7) k/uL Sodium 132 L (137-145) mmol/L BUN 36 H (7-17) mg/dL Creatinine 6.29 H (0.52-1.04) mg/dL Magnesium 1.5 L (1.6-2.3) mg/dL Microbiology - Last 24 Hours (Table) 10/09/23 15:42 Blood Culture - Preliminary Blood 10/09/23 15:27 Blood Culture - Preliminary Blood
--- NOTE | 2023-10-11 12:04 | P.PN ---
Subjective Patient is seen in follow-up for end-stage renal disease. She is maintained on peritoneal dialysis. Diarrhea slowing down. No bowel movements overnight but had 3 bowel movements this morning. Vital signs are stable. General: No acute distress. HEENT: Head exam is unremarkable. LUNGS: No audible rhonchi or wheezes. HEART: Rate and Rhythm are regular. ABDOMEN: Nontender. EXTREMITITES: No edema. Objective - Vital Signs Vital signs: Vital Signs Temp 97.1 F L 10/11/23 10:48 Pulse 66 10/11/23 10:48 Resp 16 10/11/23 10:48 BP 110/66 10/11/23 10:48 Pulse Ox 98 10/11/23 10:48 FiO2 Intake & Output 10/10/23 10/11/23 10/11/23 18:59 06:59 18:59 Intake Total 652 118 Balance 652 118 Weight 73.936 kg Intake: Oral 652 118 Other: Voiding Method Toilet Toilet Toilet # Voids 1 1 # Bowel Movements 1 0 - Labs CBC & Chem 7: 10/11/23 05:48 10/11/23 05:48 Labs: Abnormal Lab Results - Last 24 Hours (Table) 10/11/23 10/11/23 Range/Units 05:48 05:48 WBC 12.36 H (4.50-10.00) X 10*3/uL RBC 3.47 L (4.10-5.20) X 10*6/uL Hgb 10.3 L (12.0-15.0) g/dL Hct 31.0 L (37.2-46.3) % RDW 18.7 H (11.5-14.5) % Anion Gap 13.30 H (4.00-12.00) mmol/L BUN 28.7 H (9.0-27.0) mg/dL Creatinine 6.3 H (0.6-1.5) mg/dL Est GFR (CKD-EPI) 6 L (>=60) BUN/Creatinine Ratio 4.56 L (12.00-20.00) Ratio Microbiology - Last 24 Hours (Table) 10/09/23 15:42 Blood Culture - Preliminary Blood 10/09/23 15:27 Blood Culture - Preliminary Blood Assessment and Plan Plan: Assessment: 1. End-stage renal disease maintained on peritoneal dialysis. 2. C. difficile colitis. On oral vancomycin. 3. Chronic kidney disease mineral bone disease maintained on calcitriol. 4. History of A-fib. Rate controlled. 5. Anemia of chronic kidney disease. On Aranesp. 6. Hypokalemia from poor intake and PD losses. Replaced. Better. 7. Hypomagnesemia from GI losses. Replaced. Improved. Plan: Maintain current PD exchanges.
[2023-10-11] MEDS: CHOLESTYRAMINE (WITH SUGAR) 4 GM PACKET PO SCH (14:22)
--- NOTE | 2023-10-11 16:44 | P.PN ---
Subjective Progress Note Date: 10/11/23 Principal diagnosis: Reason for follow-up visit of colitis and leukocytosis Patient is a 83-year female with a past medical history significant for end-stage renal disease on peritoneal dialysis history of recurrent renal abscess requiring drainage and prolonged antibiotic course presenting to the hospital with diarrhea and has been diagnosed with C. difficile colitis. On today's visit that is 10/11/2023, the patient continues to be afebrile, the patient is on room air and breathing comfortably, the Pt denies having any chest pain or cough, the patient denies having any abdominal pain no vomiting mention did have a 3 episode of loose stools today none at night. Patient white count is down to 12.36, creatinine 6.3 Objective - Vital Signs Vital signs: Vital Signs Temp 97.1 F L 10/11/23 10:48 Pulse 66 10/11/23 10:48 Resp 16 10/11/23 10:48 BP 110/66 10/11/23 10:48 Pulse Ox 98 10/11/23 10:48 FiO2 Intake & Output 10/10/23 10/11/23 10/11/23 18:59 06:59 18:59 Intake Total 652 118 Balance 652 118 Weight 73.936 kg Intake: Oral 652 118 Other: Voiding Method Toilet Toilet Toilet # Voids 1 1 # Bowel Movements 1 0 - Exam GENERAL DESCRIPTION: An elderly female lying in bed in no distress RESPIRATORY SYSTEM: Unlabored breathing , decreased breath sounds at bases HEART: S1 S2 regular rate and rhythm , ABDOMEN: Soft , no tenderness EXTREMITIES: No edema feet - Labs CBC & Chem 7: 10/11/23 05:48 10/11/23 05:48 Labs: Abnormal Lab Results - Last 24 Hours (Table) 10/11/23 10/11/23 Range/Units 05:48 05:48 WBC 12.36 H (4.50-10.00) X 10*3/uL RBC 3.47 L (4.10-5.20) X 10*6/uL Hgb 10.3 L (12.0-15.0) g/dL Hct 31.0 L (37.2-46.3) % RDW 18.7 H (11.5-14.5) % Anion Gap 13.30 H (4.00-12.00) mmol/L BUN 28.7 H (9.0-27.0) mg/dL Creatinine 6.3 H (0.6-1.5) mg/dL Est GFR (CKD-EPI) 6 L (>=60) BUN/Creatinine Ratio 4.56 L (12.00-20.00) Ratio Microbiology - Last 24 Hours (Table) 10/09/23 15:42 Blood Culture - Preliminary Blood 10/09/23 15:27 Blood Culture - Preliminary Blood Assessment and Plan (1) C. difficile colitis Current Visit: Yes Status: Acute Code(s): A04.72 - ENTEROCOLITIS D/T CLOSTRIDIUM DIFFICILE, NOT SPCF RECUR SNOMED Code(s): 651628585 (2) Leukocytosis Current Visit: No Status: Acute Code(s): D72.829 - ELEVATED WHITE BLOOD CELL COUNT, UNSPECIFIED SNOMED Code(s): 586356869 Plan: 1patient was in the hospital with crampy abdominal pain along with significant diarrhea and this patient has been exposed antibiotic for her renal abscess with recent exposure to the Augmentin prescribed from the ER for presumed diverticulitis now with worsening abdominal pain and diarrhea elevated white count source likely C. difficile colitis 2-patient to continue with vancomycin 500 mg p.o. every 6 hours, we will add Questran for symptomatic relief encouraged to increase her probiotic and yogurt intake Dictation was produced using [employer] dictation software. please excuse any grammatical, word or spelling errors. Time with Patient: Less than 30
[2023-10-12 08:48] VITALS: BP 100/67; PULSE 75; RESP 17; TEMP 97.8
[2023-10-12 08:48] LABS: HCT 30.8 % (37.2-46.3); HGB 10.3 g/dL (12.0-15.0); MCH 29.5 pg (27.0-32.0); MCHC 33.4 g/dL (32.0-37.0); MCV 88.3 FL (80.0-97.0); Mean Platelet Volume 9.6 FL (9.5-12.2); NRBC Per 100 WBC 0 X 10*3/uL (0.00-0.01); Platelet Count 312 X 10*3/uL (140-440); RBC 3.49 X 10*6/uL (4.10-5.20); RDW 18.9 % (11.5-14.5); WBC 10.19 X 10*3/uL (4.50-10.00)
[2023-10-12 08:49] LABS: ALT 138 U/L (8-44); AST 118 U/L (13-35); Albumin 2.7 g/dL (3.8-4.9); Alkaline Phosphatase 101 U/L (41-126); BUN/Creat Ratio 4.21 Ratio (12.00-20.00); Blood Urea Nitrogen 24.4 mg/dL (9.0-27.0); Calcium 9.1 mg/dL (8.7-10.3); Carbon Dioxide 27.9 mmol/L (21.6-31.8); Chloride 98 mmol/L (96-109); Globulin 1.8 g/dL (1.6-3.3); Glucose 91 mg/dL (70-110); Magnesium 1.9 mg/dL (1.5-2.4); Potassium 3.4 mmol/L (3.5-5.5); Sodium 136 mmol/L (135-145); Total Bilirubin 0.3 mg/dL (0.3-1.2); Total Protein 4.5 g/dL (6.2-8.2)
--- NOTE | 2023-10-12 12:17 | P.PN ---
Subjective Patient is seen in follow-up for end-stage renal disease. She is maintained on peritoneal dialysis. Diarrhea continues to slow down. 1 bowel movement today so far. Vital signs are stable. General: No acute distress. HEENT: Head exam is unremarkable. LUNGS: No audible rhonchi or wheezes. HEART: Rate and Rhythm are regular. ABDOMEN: Nontender. EXTREMITITES: No edema. Objective - Vital Signs Vital signs: Vital Signs Temp 97.8 F 10/12/23 07:00 Pulse 75 10/12/23 07:00 Resp 17 10/12/23 07:00 BP 100/67 10/12/23 07:00 Pulse Ox 97 10/12/23 07:00 FiO2 Intake & Output 10/11/23 10/12/23 10/12/23 18:59 06:59 18:59 Intake Total 357 Balance 357 Intake: Oral 357 Other: Voiding Method Toilet Toilet Toilet # Voids 1 1 # Bowel Movements 1 - Labs CBC & Chem 7: 10/12/23 06:11 10/12/23 06:11 Labs: Abnormal Lab Results - Last 24 Hours (Table) 10/12/23 10/12/23 Range/Units 06:11 06:11 WBC 10.19 H (4.50-10.00) X 10*3/uL RBC 3.49 L (4.10-5.20) X 10*6/uL Hgb 10.3 L (12.0-15.0) g/dL Hct 30.8 L (37.2-46.3) % RDW 18.9 H (11.5-14.5) % Potassium 3.4 L (3.5-5.5) mmol/L Creatinine 5.8 H (0.6-1.5) mg/dL Est GFR (CKD-EPI) 7 L (>=60) BUN/Creatinine Ratio 4.21 L (12.00-20.00) Ratio AST 118 H (13-35) U/L ALT 138 H (8-44) U/L Total Protein 4.5 L (6.2-8.2) g/dL Albumin 2.7 L (3.8-4.9) g/dL Albumin/Globulin Ratio 1.50 L (1.60-3.17) Ratio Microbiology - Last 24 Hours (Table) 10/09/23 12:45 Stool Culture - Preliminary Stool 10/09/23 15:42 Blood Culture - Preliminary Blood 10/09/23 15:27 Blood Culture - Preliminary Blood Assessment and Plan Plan: Assessment: 1. End-stage renal disease maintained on peritoneal dialysis. 2. C. difficile colitis. On oral vancomycin. 3. Chronic kidney disease mineral bone disease maintained on calcitriol. 4. History of A-fib. Rate controlled. 5. Anemia of chronic kidney disease. On Aranesp. 6. Hypokalemia from poor intake and PD losses. 7. Hypomagnesemia from GI losses. Stable. Plan: Maintain current PD exchanges. Maintain potassium supplementation. Additional 40 mill equivalents today.
[2023-10-12] MEDS: POTASSIUM CHLORIDE ER 20 MEQ TAB.ER PO STA (12:57)
--- NOTE | 2023-10-12 14:17 | P.PN ---
Subjective Progress Note Date: 10/12/23 Principal diagnosis: Reason for follow-up visit of colitis and leukocytosis Patient is a 83-year female with a past medical history significant for end-stage renal disease on peritoneal dialysis history of recurrent renal abscess requiring drainage and prolonged antibiotic course presenting to the hospital with diarrhea and has been diagnosed with C. difficile colitis. On today's visit that is 10/12/2023, Patient is afebrile patient is currently on room air and denies having any shortness of breath, the patient denies any chest pain or cough, the patient denies any nausea vomiting did not have any abdominal pain and patient did have resolution of her diarrhea did have small bowel movement feeling better. Patient white count is down to 10.19, creatinine is 5.8 Objective - Vital Signs Vital signs: Vital Signs Temp 97.8 F 10/12/23 07:00 Pulse 75 10/12/23 07:00 Resp 17 10/12/23 07:00 BP 100/67 10/12/23 07:00 Pulse Ox 97 10/12/23 07:00 FiO2 Intake & Output 10/11/23 10/12/23 10/12/23 18:59 06:59 18:59 Intake Total 357 Balance 357 Intake: Oral 357 Other: Voiding Method Toilet Toilet Toilet # Voids 1 1 # Bowel Movements 1 - Exam GENERAL DESCRIPTION: An elderly female lying in bed in no distress RESPIRATORY SYSTEM: Unlabored breathing , decreased breath sounds at bases HEART: S1 S2 regular rate and rhythm , ABDOMEN: Soft , no tenderness EXTREMITIES: No edema feet - Labs CBC & Chem 7: 10/12/23 06:11 10/12/23 06:11 Labs: Abnormal Lab Results - Last 24 Hours (Table) 10/12/23 10/12/23 Range/Units 06:11 06:11 WBC 10.19 H (4.50-10.00) X 10*3/uL RBC 3.49 L (4.10-5.20) X 10*6/uL Hgb 10.3 L (12.0-15.0) g/dL Hct 30.8 L (37.2-46.3) % RDW 18.9 H (11.5-14.5) % Potassium 3.4 L (3.5-5.5) mmol/L Creatinine 5.8 H (0.6-1.5) mg/dL Est GFR (CKD-EPI) 7 L (>=60) BUN/Creatinine Ratio 4.21 L (12.00-20.00) Ratio AST 118 H (13-35) U/L ALT 138 H (8-44) U/L Total Protein 4.5 L (6.2-8.2) g/dL Albumin 2.7 L (3.8-4.9) g/dL Albumin/Globulin Ratio 1.50 L (1.60-3.17) Ratio Microbiology - Last 24 Hours (Table) 10/09/23 12:45 Stool Culture - Preliminary Stool 10/09/23 15:42 Blood Culture - Preliminary Blood 10/09/23 15:27 Blood Culture - Preliminary Blood Assessment and Plan (1) C. difficile colitis Status: Acute Code(s): A04.72 - ENTEROCOLITIS D/T CLOSTRIDIUM DIFFICILE, NOT SPCF RECUR SNOMED Code(s): 719922273 (2) Leukocytosis Status: Acute Code(s): D72.829 - ELEVATED WHITE BLOOD CELL COUNT, UNSPECIFIED SNOMED Code(s): 550327189 Plan: 1patient was in the hospital with crampy abdominal pain along with significant diarrhea and this patient has been exposed antibiotic for her renal abscess with recent exposure to the Augmentin prescribed from the ER for presumed diverticulitis now with worsening abdominal pain and diarrhea elevated white count source likely C. difficile colitis 2-patient has shown clinical improvement she will finish therapy with vancomycin 250 mg p.o. every 6 hours for 2 weeks along with probiotic and yogurt intake Dictation was produced using [employer] dictation software. please excuse any grammatical, word or spelling errors. Time with Patient: Less than 30
--- NOTE | 2023-10-12 15:53 | P.DS ---
Providers Date of admission: 10/11/23 08:03 Expected date of discharge: 10/12/23 Attending physician: Ashlee Hoskins, DO Consults: 10/09/23 13:16 Consult Physician Urgent Consulting Provider: Edmundo Hernandez Consult Reason/Comments: Dialysis Do you want consulting provider notified?: Yes 10/09/23 15:23 Consult Physician Routine Consulting Provider: Luz Marina Murguia Consult Reason/Comments: C-diff status post completing 6 week antibiotic course for renal abscess Do you want consulting provider notified?: Yes Primary care physician: [facility] Course: 83-year-old female with a past medical history of ESRD on peritoneal dialysis, paroxysmal atrial fibrillation on anticoagulation with Eliquis, hypertension, hyperlipidemia, and recent hospitalization for sepsis secondary to Enterobacter infection from UTI and renal abscess from 07/21/2023 through 08/09/2023. She was discharged home on an extended 6-week course of IV antibiotics with cefepime and has been following outpatient with infectious disease specialists, Dr. Murguia. Patient reports that shortly after completing the complete course of IV antibiotics she began to develop intermittent abdominal pain/cramping and watery diarrhea. She was treating with Imodium at home with no relief and came to the emergency department on 10/07/2023 for evaluation. At that time patient underwent a CT abdomen and pelvis without contrast which revealed moderate colonic colitis/diverticulitis with innumerable cysts within the kidneys bilaterally, cholelithiasis without acute cholecystitis, hiatal hernia, and a small amount of ascites. She was discharged home from the ER on oral antibiotic Augmentin along with Lomotil. Patient reports she returned to the emergency department today secondary to worsening abdominal cramping and watery diarrhea. She underwent full evaluation in the emergency department. Vital signs upon arrival show blood pressure 99/60, heart rate 84, respiratory rate 20, temp 98.3 F, and SpO2 of 99% on room air. CBC showing leukocytosis with WBC count of 17.9 and microcytic anemia with hemoglobin of 10.3 which is stable and at baseline. BMP showing mild hyponatremia with sodium of 133, hypokalemia with potassium of 3.2 and renal function consistent with ESRD with BUN of 37, creatinine 6.24, and GFR of 6. Blood glucose 122. Magnesium slightly low 1.5. Liver profile showing slightly elevated AST of 61 and ALT of 64. C. difficile toxin is positive. Patient started on oral vancomycin 125 mg p.o. every 6 hours. She was admitted under our services with consultation to nephrology and infectious disease. Infectious disease consulted, dosage increased to Vancomycin 500 mg PO Q6H. 10/11 Patient was seen and examined. She reports 2 bowel movements. Diarrhea significantly improved. Discussed with Dr. Murguia, recommends 2 weeks of Vancomycin 250 mg PO Q6H. CBC WBC 10.19, Hg 10.3, Hct 30.8. CMP K 3.4, Cr 5.8, GFR 7, BUN/Cr 4.21, AST 118, ALT 138, alb 2.7. General: non toxic, no distress, appears at stated age Derm: warm, dry Head: atraumatic, normocephalic, symmetric Eyes: EOMI, no lid lag, anicteric sclera Mouth: no lip lesion, mucus membranes moist Cardiovascular: S1S2 reg, no murmur Lungs: CTA bilateral, no rhonchi, no rales , no accessory muscle use Psych: Alert, oriented, appropriate affect Discharge Diagnosis: C. difficile colitis Sepsis upon arrival, secondary to above Hypokalemia ESRD on peritoneal dialysis Paroxysmal atrial fibrillation. Hypertension Hyperlipidemia History of TIA This complex discharge took 35 minutes to complete. Patient Condition at Discharge: Stable Plan - Discharge Summary Discharge Rx Participant: No New Discharge Prescriptions: New Cholestyramine (with Sugar) [Questran Packet] 4 gm PO BID@1000,2100 PRN #20 packet PRN Reason: Diarrhea Vancomycin HCl [Vancocin HCl] 250 mg PO Q6HR #52 cap Continue allopurinoL [Zyloprim] 100 mg PO BID Estrogens, Conjugated Cream [Premarin Vaginal Cream] 1 applicator VAGINAL MOWEFR Aspirin 81 mg PO DAILY #60 tab Apixaban [Eliquis] 2.5 mg PO BID 90 Days #180 tab Midodrine [ProAmatine] 5 mg PO TID PRN PRN Reason: BP >110 SYSTOLIC Metoprolol Tartrate [Lopressor] 12.5 mg PO DAILY Amiodarone [Cordarone] 200 mg PO BID Diphenox-Atrop 2.5-0.025 mg [Lomotil] 1 tab PO QID PRN #15 tablet PRN Reason: Diarrhea Famotidine [Pepcid] 20 mg PO BID Sodium Bicarbonate Tab 650 mg PO BID Cholecalciferol [Vitamin D3 (25 Mcg = 1000 Iu)] 25 mcg PO DAILY Rosuvastatin [Crestor] 20 mg PO HS Liqua Martha Protein 1 dose PO BID calcitrioL 0.25 mcg PO MO Potassium Chloride ER [K-Dur 10] 10 meq PO DAILY Ondansetron Odt [Zofran ODT] 4 mg PO Q8HR PRN #10 tab PRN Reason: Nausea And Vomiting Cranberry Concentrate-Ascorbic Acid 4,200mg-20mg Capsule 1 cap PO DAILY Changed polyethylene glycoL 3350 [Miralax] 8.5 - 17 gm PO DAILY PRN #0 PRN Reason: Constipation Discontinued Amoxic-Pot Clav 500-125 mg [Augmentin 500-125 mg] 1 tab PO Q12HR 10 Days #20 tab Discharge Medication List allopurinoL [Zyloprim] 100 mg PO BID 05/22/17 [History] Sodium Bicarbonate Tab 650 mg PO BID 11/03/21 [History] Cholecalciferol [Vitamin D3 (25 Mcg = 1000 Iu)] 25 mcg PO DAILY 09/15/22 [History] Rosuvastatin [Crestor] 20 mg PO HS 09/15/22 [History] Estrogens, Conjugated Cream [Premarin Vaginal Cream] 1 applicator VAGINAL MOWEFR 05/24/23 [History] Liqua Martha Protein 1 dose PO BID 05/24/23 [History] calcitrioL 0.25 mcg PO MO 05/24/23 [History] Aspirin 81 mg PO DAILY #60 tab 06/09/23 [Rx] Potassium Chloride ER [K-Dur 10] 10 meq PO DAILY 07/05/23 [History] Apixaban [Eliquis] 2.5 mg PO BID 90 Days #180 tab 07/08/23 [Rx] Amiodarone [Cordarone] 200 mg PO BID 07/20/23 [History] Metoprolol Tartrate [Lopressor] 12.5 mg PO DAILY 07/20/23 [History] Midodrine [ProAmatine] 5 mg PO TID PRN 07/20/23 [History] Cranberry Concentrate-Ascorbic Acid 4,200mg-20mg Capsule 1 cap PO DAILY 10/07/23 [History] Diphenox-Atrop 2.5-0.025 mg [Lomotil] 1 tab PO QID PRN #15 tablet 10/07/23 [Rx] Famotidine [Pepcid] 20 mg PO BID 10/07/23 [History] Ondansetron Odt [Zofran ODT] 4 mg PO Q8HR PRN #10 tab 10/07/23 [Rx] Cholestyramine (with Sugar) [Questran Packet] 4 gm PO BID@1000,2100 PRN #20 packet 10/12/23 [Rx] Vancomycin HCl [Vancocin HCl] 250 mg PO Q6HR #52 cap 10/12/23 [Rx] polyethylene glycoL 3350 [Miralax] 8.5 - 17 gm PO DAILY PRN #0 10/12/23 [Rx] Follow up Appointment(s)/Referral(s): Cat Dobbs MD [STAFF PHYSICIAN] - 1 Week Keith Riley DO [Primary Care Provider] - 1-2 days Luz Marina Murguia MD [STAFF PHYSICIAN] - 1 Week Patient Instructions/Handouts: C. Diff (Clostridioides Difficile) Infection (GEN) Discharge Disposition: HOME SELF-CARE
== END 2023-10-12 13:04 | disposition home or self-care (01) | DRG 371 ==
LOC: EC 10:41 → 6NMEDSUR 13:54 → OBSVTOIN 10-11 08:03
PROVIDERS: ADMIT Internal Medicine; ATTEND Internal Medicine
PROC: 3E1M39Z Irrigation of Peritoneal Cavity using Dialysate, Percutaneous Approach (ICD-10-PCS; principal; 2023-10-09)
DX: A04.72 Enterocolitis due to Clostridium difficile, not specified as recurrent (principal); N18.6 End stage renal disease; I12.0 Hypertensive chronic kidney disease with stage 5 chronic kidney disease or end stage renal disease; E87.1 Hypo-osmolality and hyponatremia; R18.8 Other ascites; K57.92 Diverticulitis of intestine, part unspecified, without perforation or abscess without bleeding; D63.1 Anemia in chronic kidney disease; E83.9 Disorder of mineral metabolism, unspecified; I95.9 Hypotension, unspecified; I48.0 Paroxysmal atrial fibrillation; Z99.2 Dependence on renal dialysis; Z28.310 Unvaccinated for COVID-19; E87.6 Hypokalemia; E83.42 Hypomagnesemia; D50.9 Iron deficiency anemia, unspecified; E78.5 Hyperlipidemia, unspecified; K80.20 Calculus of gallbladder without cholecystitis without obstruction; M10.9 Gout, unspecified; M54.9 Dorsalgia, unspecified; K44.9 Diaphragmatic hernia without obstruction or gangrene; I83.90 Asymptomatic varicose veins of unspecified lower extremity; Z79.01 Long term (current) use of anticoagulants; Z79.890 Hormone replacement therapy; Z79.82 Long term (current) use of aspirin; Z79.899 Other long term (current) drug therapy; Z86.73 Personal history of transient ischemic attack (TIA), and cerebral infarction without residual deficits; Z87.440 Personal history of urinary (tract) infections; Z96.653 Presence of artificial knee joint, bilateral; Z96.611 Presence of right artificial shoulder joint; Z86.19 Personal history of other infectious and parasitic diseases; Z88.1 Allergy status to other antibiotic agents; Z88.8 Allergy status to other drugs, medicaments and biological substances
CPT/HCPCS: 36415; 80048; 80053; 83605; 83690; 83735; 85025; 85027; 87040; 87045; 87046; 87324; 99285

== ENCOUNTER → 2023-12-12 | Outpatient (CLI) | payer MEDICARE ==
--- NOTE | 2023-12-12 13:54 | XR ---
EXAMINATION TYPE: XR shoulder complete BILAT DATE OF EXAM: 12/12/2023 COMPARISON: Right 09/29/2012 HISTORY: 83-year-old female bilateral shoulder pain for 3 months. Right greater than left. [id number] JORDAN SHLD PAIN TECHNIQUE: 3 views each side FINDINGS: Left: AC joint appears congruent and intact. Subacromial space is preserved. There is some rounded contour of the greater tuberosity and moderate to severe degenerative change at the glenohumeral joint with n early [id number] articulation, inferior spurring, subchondral sclerosis and cystic change. Right: Overpenetration limits assessment of the AC joint. There has been progressive, now end-stage glenohum eral joint degenerative change with [id number] articulation, marginal spurring, and extensive react brian subchondral sclerosis. Bony irregularity of the greater tuberosity. Subacromial space is preserve d. No acute fracture, subluxation, dislocation on either side. IMPRESSION: 1. Right: End stage, [id number] glenohumeral joint OA, progressed from 2012. 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 2. Left: Moderate to severe glenohumeral joint OA possibly with bone on bone articulation on this elias e as well but not as much reactive change as on the contralateral side. Changes of chronic rotator cu ff tendinopathy.
== END | disposition home or self-care (01) ==
LOC: RADXRYALE 11:31
PROVIDERS: ATTEND Family Medicine
DX: M19.012 Primary osteoarthritis, left shoulder (principal); M19.011 Primary osteoarthritis, right shoulder; M75.22 Bicipital tendinitis, left shoulder; M75.21 Bicipital tendinitis, right shoulder

== ENCOUNTER 2023-12-24 10:39 | Inpatient (IN) | payer MEDICARE ==
--- NOTE | 2023-12-24 11:48 | ED ---
Weakness HPI - General Chief complaint: Weakness Stated complaint: Possible UTI Time Seen by Provider: 12/24/23 11:45 Source: patient, family, RN notes reviewed, old records reviewed Mode of arrival: ambulatory Limitations: no limitations - History of Present Illness Initial comments: 83-year-old female presented to the ER with a chief complaint of weakness. Patient does have a past medical history significant for chronic kidney disease and does nightly dialysis at home. Patient was also recently treated for C. difficile in September 2023. For approximately 1 week patient has been complaining of weakness and dizziness. She describes her dizziness as the room is spinning sensation. She denies any history of vertigo. She states today her dizziness was so bad she felt like she was going to pass out which brought her to the ER. Patient was seen by primary care physician on Tuesday12-19-2023 and diagnosed with a urinary tract infection. Patient was started on amoxicillin on 12-21-2023. Family report patient has been having difficulty ambulating due to the weakness and having to use a walker. Patient denies any headache, cough, congestion, fevers, chills, nausea, vomiting, chest pain, shortness of breath, abdominal pain, constipation/diarrhea or peripheral edema. - Related Data Home Medications Medication Instructions Recorded Confirmed allopurinoL [Zyloprim] 100 mg PO BID 05/22/17 12/24/23 Rosuvastatin [Crestor] 20 mg PO HS 09/15/22 12/24/23 calcitrioL 0.25 mcg PO MO 05/24/23 12/24/23 Amiodarone [Cordarone] 200 mg PO BID 07/20/23 12/24/23 Midodrine [ProAmatine] 5 mg PO TID PRN 07/20/23 12/24/23 Cranberry Concentrate-Ascorbic 1 cap PO DAILY 10/07/23 12/24/23 Acid 4,200mg-20mg Capsule Famotidine [Pepcid] 20 mg PO BID 10/07/23 12/24/23 Amoxicillin 875 mg PO Q12HR 12/24/23 12/24/23 Benzonatate [Tessalon Perle] 200 mg PO TID PRN 12/24/23 12/24/23 Fluticasone Nasal Moore [Flonase 2 spray EA NOSTRIL BID PRN 12/24/23 12/24/23 Nasal Moore] predniSONE See Taper PO DIRECTED 12/24/23 12/24/23 Previous Rx's Medication Instructions Recorded Apixaban [Eliquis] 2.5 mg PO BID 90 Days #180 tab 07/08/23 Ondansetron Odt [Zofran ODT] 4 mg PO Q8HR PRN #10 tab 10/07/23 Allergies Allergy/AdvReac Type Severity Reaction Status Date / Time losartan [Losartan] Allergy Unknown Verified 12/24/23 14:12 LUANA Inhibitors AdvReac Cough Verified 12/24/23 14:12 levofloxacin [From Levaquin] AdvReac Hallucinati Verified 12/24/23 14:12 ons Review of Systems ROS Statement: Those systems with pertinent positive or pertinent negative responses have been documented in the HPI. ROS Other: All systems not noted in ROS Statement are negative. 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 History of Any Multi-Drug Resistant Organisms: VRE Date of last positivie culture/infection: 08/16/23 MDRO Source:: Urine Past Surgical History: Section, Hysterectomy, Joint Replacement, Orthopedic Surgery Additional Past Surgical History / Comment(s): 3 C-Sections, hysterectomy with vaginal repair, bilateral total knees, R shoulder acromioplasty, excision distal clavicle rotator cuff repair, bilateral cataract removal with lens implants, L breast bx-benign, varicose vein stripping bilaterally, peritoneal HD cath Past Anesthesia/Blood Transfusion Reactions: No Reported Reaction Past Psychological History: No Psychological Hx Reported Smoking Status: Never smoker Past Alcohol Use History: None Reported Past Drug Use History: None Reported - Past Family History Brother(s) Family Medical History: Renal Disease Father Family Medical History: Unable to Obtain Mother Family Medical History: Coronary Artery Disease (CAD), CVA/TIA Additional Family Medical History / Comment(s): Mother at 92 yrs of age. She had TIA's. General Exam Limitations: no limitations General appearance: alert, in no apparent distress Eye exam: Present: normal appearance, PERRL, EOMI. Absent: scleral icterus, conjunctival injection, periorbital swelling Respiratory exam: Present: normal lung sounds bilaterally. Absent: respiratory distress, wheezes, rales, rhonchi, stridor Cardiovascular Exam: Present: regular rate, normal rhythm, normal heart sounds. Absent: systolic murmur, diastolic murmur, rubs, gallop, clicks GI/Abdominal exam: Present: soft, normal bowel sounds. Absent: distended, tenderness, guarding, rebound, rigid Extremities exam: Present: normal inspection, full ROM, normal capillary refill. Absent: tenderness, pedal edema, joint swelling, calf tenderness Neurological exam: Present: alert, oriented X3, CN II-XII intact Skin exam: Present: warm, dry, intact, normal color. Absent: rash Course Vital Signs 12/24/23 12/24/23 12/24/23 10:48 11:01 12:00 Temperature 97.5 F L 97.5 F L Pulse Rate 68 69 65 Respiratory 16 16 8 L Rate Blood Pressure 104/71 138/82 138/82 O2 Sat by Pulse 98 97 99 Oximetry 12/24/23 12/24/23 12/24/23 13:00 14:00 16:54 Temperature Pulse Rate 60 67 72 Respiratory 20 13 16 Rate Blood Pressure 130/78 127/71 143/92 O2 Sat by Pulse 98 96 96 Oximetry - Reevaluation(s) Reevaluation #1: 12/24/23 17:[address] Bobo, on-call general surgeon who advises on IV antibiotics for urinary tract infection and admission to medicine. Case discussed with [facility] physician, Dr. Marinelli, accepts medical admission. Medical Decision Making - Medical Decision Making Was pt. sent in by a medical professional or institution (, PA, COIN BOX COLLECTOR, urgent care, hospital, or care home...) When possible be specific @ -No Did you speak to anyone other than the patient for history (EMS, parent, family, police, friend...)? What history was obtained from this source @ - aiding in HPI and past medical history. Did you review nursing and triage notes (agree or disagree)? Why? @ -I reviewed and agree with nursing and triage notes Were old charts reviewed (outside hosp., previous admission, EMS record, old EKG, old radiological studies, urgent care reports/EKG's, care home records)? Report findings @ -No old charts were reviewed Differential Diagnosis (chest pain, altered mental status, abdominal pain women, abdominal pain men, vaginal bleeding, weakness, fever, dyspnea, syncope, headache, dizziness, GI bleed, back pain, seizure, CVA, palpatations, mental health, musculoskeletal)? @ -Differential Weakness:Hypoglycemia, shock, sepsis, hyponatremia, anemia, infection, ID, ETOH, adverse medicine reaction, overdose, stroke, this is not meant to be an all-inclusive list. EKG interpreted by me (3pts min.). @ -As above X-rays interpreted by me (1pt min.). @ -[Chest x-ray significant for a pneumoperitoneum. CT interpreted by me (1pt min.). @ -CT abdomen pelvis significant for a moderate to large pneumoperitoneum. Moderate sized hiatal hernia. Small amount of free pelvic fluid likely related to peritoneal dialysis catheter. Diffuse increased hepatic attenuation. Stable appearing numerous low-attenuation nodules throughout the liver. Grossly stable appearance of the kidneys. U/S interpreted by me (1pt. min.). @ -None done What testing was considered but not performed or refused? (CT, X-rays, U/S, labs)? Why? @ -None What meds were considered but not given or refused? Why? @ -None Did you discuss the management of the patient with other professionals (professionals i.e. , PA, COIN BOX COLLECTOR, lab, RT, psych nurse, psychiatric social worker supervisor, chemical laboratory assistant, teacher, chief scientific officer, lining caser)? Give summary @ -Yes, case discussed with Dr. Alcantar, on-call general surgeon, who advises on IV Rocephin for urinary tract infection. Was smoking cessation discussed for >3mins.? @ -No Was critical care preformed (if so, how long)? @ -No Were there social determinants of health that impacted care today? How? (Homelessness, low income, unemployed, alcoholism, drug addiction, transportation, low edu. Level, literacy, decrease access to med. care, residential, rehab)? @ -No Was there de-escalation of care discussed even if they declined (Discuss DNR or withdrawal of care, Hospice)? DNR status @ -No What co-morbidities impacted this encounter? (DM, HTN, Smoking, COPD, CAD, Cancer, CVA, ARF, Chemo, Hep., AIDS, mental health diagnosis, sleep apnea, morb id obesity)? @ -[facility] performs peritoneal dialysis nightly. Was patient admitted / discharged? Hospital course, mention meds given and route, prescriptions, significant lab abnormalities, going to OR and other pertinent info. @ -Admitted. 83 year old female presenting to the ER with a cheif complaint of weakness. History and physical exam completed. Vitals stable. Vitals upon arrival te mperature 97.5F, heart rate 66, blood pressure 104/71, oxygen saturation 98% on room air. Vitals remained stable throughout ER stay. Patient in no signs of acute distress and nontoxic-appearing. No focal abdominal tenderness. Peritoneal dialysis port present lower abdomen. No evidence of infection. No surrounding erythema or drainage. Lung sounds clear to station bilaterally. Laboratory studies obtained remarkable for white blood cell count 14 with a left shift. Hyponatremia 134, BUN 40, creatinine 6.43 which is likely related to patient's CKD. Hypomagnesemia 1.5, mild transaminitis AST 39, ALT 45. Urinalysis significant for large leukocyte esterases with more than 182 white blood cells concerning of infection. Influenza, RSV, COVID-negative. Chest x- ray significant for pneumoperitoneum. CT abdomen pelvis obtained due to x-ray findings. CT abdomen pelvis significant for moderate to large pneumoperitoneum of unknown eitology. Patient does not meet sepsis criteria. Admission considered as unclear etiology for pneumoperitoneum. Could possibly be from peritoneal dialysis port or possible bowel perforation. Case discussed with Dr. Alcantar, cotton seed culler general surgeon, who advises on IV Rocephin for UTI and admission to medicine. Case also discussed with sound physician, Dr. Marinelli, who accepts medical admission. Blood cultures obtained. Patient agreeable for admission. Case discussed with ED attending, Dr. Gauthier. Undiagnosed new problem with uncertain prognosis? @ -No Drug Therapy requiring intensive monitoring for toxicity (Heparin, Nitro, Insul in, Cardizem)? @ -No Were any procedures done? @ -No Diagnosis/symptom? @ -Pneumoperitoneum/UTI/leukocytosis Acute, or Chronic, or Acute on Chronic? @ -Acute Uncomplicated (without systemic symptoms) or Complicated (systemic symptoms)? @ -Complicated Side effects of treatment? @ -No Exacerbation, Progression, or Severe Exacerbation? @ -No Poses a threat to life or bodily function? How? (Chest pain, USA, ID, pneumonia, PE, COPD, DKA, ARF, appy, cholecystitis, CVA, Diverticulitis, Homicidal, Suicidal, threat to staff... and all critical care pts) @ -Yes can lead to sepsis if due to infectious process. - Lab Data Result diagrams: 12/24/23 11:41 12/24/23 11:41 Lab Results 12/24/23 12/24/23 12/24/23 Range/Units 11:41 11:41 11:41 WBC 14.0 H (3.8-10.6) k/uL RBC 3.88 (3.80-5.40) m/uL Hgb 12.2 (11.4-16.0) gm/dL Hct 39.2 (34.0-46.0) % MCV 100.9 H (80.0-100.0) fL MCH 31.4 (25.0-35.0) pg MCHC 31.2 (31.0-37.0) g/dL RDW 16.7 H (11.5-15.5) % Plt Count 368 (150-450) k/uL MPV 7.6 Neutrophils % 88 % Lymphocytes % 6 % Monocytes % 4 % Eosinophils % 0 % Basophils % 0 % Neutrophils # 12.3 H (1.3-7.7) k/uL Lymphocytes # 0.9 L (1.0-4.8) k/uL Monocytes # 0.6 (0-1.0) k/uL Eosinophils # 0.0 (0-0.7) k/uL Basophils # 0.1 (0-0.2) k/uL Anisocytosis Slight Macrocytosis Slight Sodium 134 L (137-145) mmol/L Potassium 4.0 (3.5-5.1) mmol/L Chloride 97 L (98-107) mmol/L Carbon Dioxide 29 (22-30) mmol/L Anion Gap 8 mmol/L BUN 40 H (7-17) mg/dL Creatinine 6.43 H (0.52-1.04) mg/dL Est GFR (CKD-EPI)AfAm 6 (>60 ml/min/1.73 sqM) Est GFR (CKD-EPI)NonAf 6 (>60 ml/min/1.73 sqM) Glucose 115 H (74-99) mg/dL Plasma Lactic Acid Narciso (0.7-2.0) mmol/L Calcium 9.5 (8.4-10.2) mg/dL Magnesium 1.5 L (1.6-2.3) mg/dL Total Bilirubin 1.2 (0.2-1.3) mg/dL AST 39 H (14-36) U/L ALT 45 H (4-34) U/L Alkaline Phosphatase 122 (38-126) U/L Total Protein 5.6 L (6.3-8.2) g/dL Albumin 3.1 L (3.5-5.0) g/dL Urine Color Colorless Urine Appearance Cloudy H (Clear) Urine pH 8.0 (5.0-8.0) Ur Specific [place] 1.009 (1.001-1.035) Urine Protein 1+ H (Negative) Urine Glucose (UA) Negative (Negative) Urine Ketones Negative (Negative) Urine Blood Trace H (Negative) Urine Nitrite Negative (Negative) Urine Bilirubin Negative (Negative) Urine Urobilinogen <2.0 (<2.0) mg/dL Ur Leukocyte Esterase Large H (Negative) Urine RBC 6 H (0-5) /hpf Urine WBC >182 H (0-5) /hpf Urine WBC Clumps Few H (None) /hpf Urine Bacteria Few H (None) /hpf Influenza Type A (PCR) (Not Detectd) Influenza Type B (PCR) (Not Detectd) RSV (PCR) (Not Detectd) SARS-CoV-2 (PCR) (Not Detectd) 12/24/23 12/24/23 Range/Units 11:41 11:41 WBC (3.8-10.6) k/uL RBC (3.80-5.40) m/uL Hgb (11.4-16.0) gm/dL Hct (34.0-46.0) % MCV (80.0-100.0) fL MCH (25.0-35.0) pg MCHC (31.0-37.0) g/dL RDW (11.5-15.5) % Plt Count (150-450) k/uL MPV Neutrophils % % Lymphocytes % % Monocytes % % Eosinophils % % Basophils % % Neutrophils # (1.3-7.7) k/uL Lymphocytes # (1.0-4.8) k/uL Monocytes # (0-1.0) k/uL Eosinophils # (0-0.7) k/uL Basophils # (0-0.2) k/uL Anisocytosis Macrocytosis Sodium (137-145) mmol/L Potassium (3.5-5.1) mmol/L Chloride (98-107) mmol/L Carbon Dioxide (22-30) mmol/L Anion Gap mmol/L BUN (7-17) mg/dL Creatinine (0.52-1.04) mg/dL Est GFR (CKD-EPI)AfAm (>60 ml/min/1.73 sqM) Est GFR (CKD-EPI)NonAf (>60 ml/min/1.73 sqM) Glucose (74-99) mg/dL Plasma Lactic Acid Narciso 1.4 (0.7-2.0) mmol/L Calcium (8.4-10.2) mg/dL Magnesium (1.6-2.3) mg/dL Total Bilirubin (0.2-1.3) mg/dL AST (14-36) U/L ALT (4-34) U/L Alkaline Phosphatase (38-126) U/L Total Protein (6.3-8.2) g/dL Albumin (3.5-5.0) g/dL Urine Color Urine Appearance (Clear) Urine pH (5.0-8.0) Ur Specific [place] (1.001-1.035) Urine Protein (Negative) Urine Glucose (UA) (Negative) Urine Ketones (Negative) Urine Blood (Negative) Urine Nitrite (Negative) Urine Bilirubin (Negative) Urine Urobilinogen (<2.0) mg/dL Ur Leukocyte Esterase (Negative) Urine RBC (0-5) /hpf Urine WBC (0-5) /hpf Urine WBC Clumps (None) /hpf Urine Bacteria (None) /hpf Influenza Type A (PCR) Not Detected (Not Detectd) Influenza Type B (PCR) Not Detected (Not Detectd) RSV (PCR) Not Detected (Not Detectd) SARS-CoV-2 (PCR) Not Detected (Not Detectd) - EKG Data -: EKG Interpreted by Me EKG Comments: EKG taken at 13: 13 showing a sinus rhythm with a first-degree AV block. No acute ST segment or T wave abnormalities. Ventricular rate 76, VA interval 214, QRS duration 93, QT/QTc 440/470. - Radiology Data Radiology results: report reviewed, image reviewed Disposition Clinical Impression: Pneumoperitoneum of unknown etiology, Urinary tract infection, Leukocytosis, End-stage renal disease on peritoneal dialysis Disposition: ADMITTED IP TO THIS HOSP Condition: Fair Referrals: Keith Riley DO [Primary Care Provider] - 1-2 days Time of Disposition: 16:57
[2023-12-24 12:31] LABS: Anisocytosis Slight; Basophils # (A) 0.1 k/uL (0-0.2); Basophils % (A) 0 %; Eosinophils % (A) 0 %; HCT 39.2 % (34.0-46.0); HGB 12.2 gm/dL (11.4-16.0); Lymphocytes # (A) 0.9 k/uL (1.0-4.8); Lymphocytes % (A) 6 %; MCH 31.4 pg (25.0-35.0); MCHC 31.2 g/dL (31.0-37.0); MCV 100.9 fL (80.0-100.0); Macrocytosis Slight; Mean Platelet Volume 7.6; Monocytes # (A) 0.6 k/uL (0-1.0); Monocytes % (A) 4 %; Neutrophils # (A) 12.3 k/uL (1.3-7.7); Neutrophils % (A) 88 %; Platelet Count 368 k/uL (150-450); RBC 3.88 m/uL (3.80-5.40); RDW 16.7 % (11.5-15.5)
[2023-12-24 12:50] LABS: ALT 45 U/L (4-34); AST 39 U/L (14-36); African American GFR (CKD) 6 (>60 ml/min/1.73 sqM); Albumin 3.1 g/dL (3.5-5.0); Alkaline Phosphatase 122 U/L (38-126); Anion Gap 8 mmol/L; Blood Urea Nitrogen 40 mg/dL (7-17); Calcium 9.5 mg/dL (8.4-10.2); Carbon Dioxide 29 mmol/L (22-30); Chloride 97 mmol/L (98-107); Glucose 115 mg/dL (74-99); Magnesium 1.5 mg/dL (1.6-2.3); Non-African American GFR(CKD) 6 (>60 ml/min/1.73 sqM); Sodium 134 mmol/L (137-145); Total Bilirubin 1.2 mg/dL (0.2-1.3); Total Protein 5.6 g/dL (6.3-8.2)
--- NOTE | 2023-12-24 13:16 | XR ---
EXAMINATION TYPE: XR chest 2V DATE OF EXAM: 12/24/2023 COMPARISON: 09/27/2023 INDICATION: Weakness TECHNIQUE: Frontal and lateral views of the chest are obtained. FINDINGS: The heart size is normal. The pulmonary vasculature is normal. The lungs are clear. There is a large pneumoperitoneum present. Report was called to the emergency room physician by Dr. Herminia odonnell by telephone at the time of interpretation. IMPRESSION: 1. Large pneumoperitoneum. Additional workup recommended.
--- NOTE | 2023-12-24 15:10 | CT ---
EXAMINATION TYPE: CT abdomen pelvis wo con CT DLP: 571.1 mGycm, Automated exposure control for dose reduction was used. DATE OF EXAM: 12/24/2023 1:43 PM COMPARISON: CT abdomen and pelvis without from 10/07/2023 CLINICAL INDICATION:Female, 83 years old with history of Pneumoperitoneum/weakness; weakness, dizzine ss, Pneumoperitoneum TECHNIQUE: Axial CT of the abdomen and pelvis. Sagittal and coronal reformats were created on a [employer] workstation. Contrast used: mL of , (none if empty) Oral contrast used: without Oral Contrast (none if empty) FINDINGS: Exam is limited without contrast. LOWER CHEST: No acute basilar infiltrates or pleural effusions. The heart is upper normal in size. Th ere is a moderate-sized sliding hiatal hernia, with some small foci of the pneumoperitoneum extending adjacent. ABDOMEN PERITONEUM/RETROPERITONEUM: There is a moderate to large amount of pneumoperitoneum, mostly located in the upper abdomen. Exact origin is not certain. No significant free fluid in the abdomen. There i s a small amount of free pelvic fluid, and a peritoneal dialysis catheter is seen terminating in the right upper pelvis. Small peripherally calcified nodule in the depths of the right pelvis in amongst the fluid as before. LIVER: Parenchyma is of diffusely increased attenuation, about 95 HU, and increased from the last CT. Grossly stable appearance of numerous low-attenuation nodules throughout, likely cysts and hemangiom as, however not fully characterized. GALLBLADDER AND BILE DUCTS: Unremarkable gallbladder. No biliary ductal dilatation. PANCREAS: Unremarkable. SPLEEN: Unremarkable. ADRENAL GLANDS: Stable mildly thickened and tiny nodular appearance.. KIDNEYS AND URETERS: Kidney show a grossly stable unenhanced morphology, lobulated with multiple cyst s and hemorrhagic/complex cysts throughout as well as a few scattered punctate calcifications. I see no ureteral calculi or hydronephrosis. PELVIS BLADDER: Mostly empty, grossly unremarkable. REPRODUCTIVE: The uterus appears absent, correlate for hysterectomy. Ovaries also not clearly seen. ABDOMEN & PELVIS STOMACH AND BOWEL: Stomach and small bowel are nondistended, no evidence of obstruction. The append ix appears within normal limits. Moderate stool and some gas distributed throughout the colon. There are multiple diverticuli in the descending and sigmoid region in particular without current evidence of inflammatory change. Previous extensive colonic inflammation has essentially resolved. VASCULATURE: Moderate atherosclerotic calcifications are present throughout the abdominal aorta and i ts branches. No evidence of aortic aneurysm. LYMPH NODES: No enlarged nodes by CT size criteria. SOFT TISSUE/ABDOMINAL WALL: Tiny fat-containing umbilical hernia, also contains a couple tiny foci of the pneumoperitoneum. Small fat-containing bilateral inguinal hernias. Calcified granulomas. MUSCULOSKELETAL: Moderate degenerative changes. No acute bony abnormality. IMPRESSION: 1. Moderate to large volume pneumoperitoneum, of uncertain origin. Assuming the patient has not had recent abdominal surgery, perforated viscus is the primary consideration. 2. Moderate sized hiatal hernia. 3. Previous extensive colonic inflammatory changes seen 10/07/2023 have essentially resolved. Multiple diverticula are seen in the descending and sigmoid region in particular without current evidence of i nflammatory change. 4. Small amount of free pelvic fluid, likely related to peritoneal dialysis catheter. 5. Diffusely increased hepatic attenuation, primary considerations include amiodarone use, iron depos ition diseases, copper deposition diseases, glycogen storage diseases, medication/drug use including amiodarone and gold therapy. 6. Grossly stable appearance of numerous low-attenuation nodules throughout the liver, likely cysts a nd hemangiomas. 7. Grossly stable appearance of the kidneys, lobulated with multiple cysts and hemorrhagic/complex cy sts throughout as well as a few scattered punctate calcifications. No hydronephrosis.
[2023-12-24 15:48] LABS: Appearance,Urine Cloudy (Clear); Bacteria,Urine Few /hpf; Bilirubin,Urine Negative (Negative); Blood,Urine Trace (Negative); Color,Urine Colorless; Glucose,Urine (UA) Negative (Negative); Ketones,Urine Negative (Negative); Leukocyte Esterase,Urine Large (Negative); Nitrite,Urine Negative (Negative); Protein,Urine 1+ (Negative); RBC,Urine 6 /hpf (0-5); Specific Gravity,Urine 1.009 (1.001-1.035); Urobilinogen,Urine <2.0 mg/dL (<2.0); WBC,Urine >182 /hpf (0-5)
[2023-12-24] MEDS: cefTRIAXone IN SWFI 1,000 MG/10 ML SYRINGE IVP STA (17:01)
[2023-12-24] MEDS ORDERED: ACETAMINOPHEN TAB 325 MG TAB PO PRN (17:13)
[2023-12-24] MEDS ORDERED: NALOXONE 0.4 MG/ML 1 ML VIAL IV PRN (17:13)
[2023-12-24] MEDS ORDERED: IOPAMIDOL CONTRAST (ORAL USE) VIAL PO PRN (17:39)
--- NOTE | 2023-12-24 17:51 | P.HPIM ---
History of Present Illness H&P Date: 12/24/23 History of Presenting Illness: Patient is a very pleasant 83-year-old female with a past medical history of ESRD on peritoneal dialysis, paroxysmal atrial fibrillation on anticoagulation with Eliquis, hypertension, hyperlipidemia, and chronic recurrent UTIs. Patient presented to the emergency department with a chief complaint of generalized weakness. Patient reports this began on 12/18/2024 and states that she went to her PCP for evaluation and was started on amoxicillin. Reports throughout the week but his weakness continued to worsen so she got her to the emergency department for further evaluation. Patient denies having any fevers, chills, diaphoresis, headache, lightheadedness, dizziness, chest pain, palpitations, shortness of breath, cough or congestion, abdominal pain, nausea, vomiting, changes in urinary or bowel function, or experiencing any numbness/tingling/weakness/swelling in her extremities. She reports that she continues to urinate but is limited to only once or twice daily secondary to her ESRD. She reports she has been undergoing her scheduled nightly peritoneal dialysis with last dialysis session starting last night and discontinued this morning. She denies having any recent medication changes or changes in dialysis solution or volume. Upon arrival to the emergency department patient underwent evaluation. Vital signs upon arrival show blood pressure 104/71, heart rate 68, respiratory rate 16, temp 97.5 F, and SpO2 of 98% on room air. EKG completed showing normal sinus rhythm at 76 bpm with degree AV block with WA interval of 214 ms and no significant T wave or ST abnormalities showing no signs of acute ischemia upon personal review and interpretation. Chest x-ray completed showing large pneumoperitoneum. CT abdomen and pelvis completed showing moderate to large volume pneumoperitoneum, unable to rule out perforated viscus, moderate sized hiatal hernia, and multiple diverticula are seen in the descending and sigmoid region in particular without current evidence of inflammatory changes, small amount of free pelvic fluid, and diffusely increased hepatic attenuation possibly secondary to amiodarone use versus iron deposition versus copper deposition diseases, and grossly stable appearance of the kidneys with multiple cystic and hemorrhagic complex cysts as well as scattered punctate calcifications. Labs were completed and reviewed. CBC showing leukocytosis with WBC count of 14.0 and macrocytosis with MCV of 100.9. BMP showing hyponatremia with sodium of 134 and hypochloremia with chloride of 97. Renal function consistent with known ESRD with BUN of 40, creatinine 6.43, GFR of 6. Magnesium was low at 1.5. Liver profile showing elevated AST of 39, ALT of 45, and normal alkaline phosphatase of 122. Urinalysis showing positive protein, trace blood, leukocytes, 6 RBCs, greater than 182 WBCs. Patient was admitted under our services with consultation to general surgery and nephrology. Review of systems: Pertinent positives and negatives as discussed in HPI, a complete review of systems was performed and all other systems are negative. Physical exam: Vital signs reviewed and stable. General: Nontoxic, no distress and appears stated age. Derm: Skin warm and dry, normal coloration for ethnicity. Head: Atraumatic, normocephalic and symmetric. Eyes: EOMs intact, no lid lag, and anicteric sclera Mouth: no lip lesions, mucus membranes moist Cardiovascular: regular rate and rhythm with normal S1S2, no murmur, positive posterior tibial pulses bilaterally, and cap refill < 2 seconds. Lungs: Respirations even, regular, and unlabored on room air. Lungs CTA bilaterally, no rhonchi, no rales, no wheezing, and no accessory muscle usage. Abdominal: soft, nontender to palpation, no guarding, no appreciable organomegaly. Peritoneal dialysis catheter left lower quadrant no surrounding erythema or drainage. Ext: ROM intact. No gross muscle atrophy, no edema, no contractures Neuro: Speech clear, face symmetrical and CN II-XII grossly intact with no noted focal neuro deficits Psych: Alert and oriented to person, place, time, and situation. Appropriate and pleasant affect. Assessment and Plan of Care: Generalized weakness and fatigue UTI -IV antibiotics with Rocephin 2 g IVPB daily. -Follow-up on urine cultures and blood culture results. -Telemetry monitoring. -Consult PT/OT -Symptomatic care and pain management. -Fall precautions. Abnormal CT finding showing large volume pneumoperitoneum -Unclear, patient free from any abdominal pain or discomfort last underwent peritoneal dialysis overnight. Pneumoperitoneum findings likely secondary to peritoneal dialysis as patient is asymptomatic of any abdominal complaints, however consult was placed to general surgery for further evaluation. ESRD on peritoneal dialysis -Nephrology consulted for management of peritoneal dialysis. -Continue sodium bicarb 650 mg twice daily and K-Dur 10 mEq daily. Paroxysmal atrial fibrillation. Hypertension Hyperlipidemia History of TIA -Continue Eliquis 2.5 mg twice daily, atorvastatin 40 mg nightly, amiodarone 200 mg twice daily, and midodrine 5 mg 3 times daily as needed ordered for systolic pressure less than 110. Data and imaging reviewed: As stated above in HPI. The patient is admitted with an anticipated less than 2 midnight stay for evaluation of generalized weakness and fatigue CODE STATUS: Full code DVT prophylaxis: Eliquis Anticipated discharge date: Clinical course to determine Anticipated discharge place: Clinical course to determine Patient was seen independently by Nurse Practitioner. This document was prepared using [employer] dictation software. Please allow for errors in tow feeder while rare they do occur. I reviewed the documentation as provided by the BERYL above, who is the original author of this note. 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 History of Any Multi-Drug Resistant Organisms: VRE Date of last positivie culture/infection: 08/16/23 MDRO Source:: Urine Past Surgical History: Section, Hysterectomy, Joint Replacement, Orthopedic Surgery Additional Past Surgical History / Comment(s): 3 C-Sections, hysterectomy with vaginal repair, bilateral total knees, R shoulder acromioplasty, excision distal clavicle rotator cuff repair, bilateral cataract removal with lens implants, L breast bx-benign, varicose vein stripping bilaterally, peritoneal HD cath Past Anesthesia/Blood Transfusion Reactions: No Reported Reaction Past Psychological History: No Psychological Hx Reported Smoking Status: Never smoker Past Alcohol Use History: None Reported Past Drug Use History: None Reported - Past Family History Brother(s) Family Medical History: Renal Disease Father Family Medical History: Unable to Obtain Mother Family Medical History: Coronary Artery Disease (CAD), CVA/TIA Additional Family Medical History / Comment(s): Mother at 92 yrs of age. She had TIA's. Medications and Allergies Home Medications Medication Instructions Recorded Confirmed Type allopurinoL [Zyloprim] 100 mg PO BID 05/22/17 12/24/23 History Rosuvastatin [Crestor] 20 mg PO HS 09/15/22 12/24/23 History calcitrioL 0.25 mcg PO MO 05/24/23 12/24/23 History Apixaban [Eliquis] 2.5 mg PO BID 90 Days #180 tab 07/08/23 12/24/23 Rx Amiodarone [Cordarone] 200 mg PO BID 07/20/23 12/24/23 History Midodrine [ProAmatine] 5 mg PO TID PRN 07/20/23 12/24/23 History Cranberry Concentrate-Ascorbic 1 cap PO DAILY 10/07/23 12/24/23 History Acid 4,200mg-20mg Capsule Famotidine [Pepcid] 20 mg PO BID 10/07/23 12/24/23 History Ondansetron Odt [Zofran ODT] 4 mg PO Q8HR PRN #10 tab 10/07/23 12/24/23 Rx Amoxicillin 875 mg PO Q12HR 12/24/23 12/24/23 History Benzonatate [Tessalon Perle] 200 mg PO TID PRN 12/24/23 12/24/23 History Fluticasone Nasal [place] [Flonase 2 spray EA NOSTRIL BID PRN 12/24/23 12/24/23 History Nasal [place]] predniSONE See Taper PO DIRECTED 12/24/23 12/24/23 History Allergies Allergy/AdvReac Type Severity Reaction Status Date / Time losartan [Losartan] Allergy Unknown Verified 12/24/23 14:12 LUANA Inhibitors AdvReac Cough Verified 12/24/23 14:12 levofloxacin [From Levaquin] AdvReac Hallucinati Verified 12/24/23 14:12 ons Physical Exam Osteopathic Statement: *. No significant issues noted on an osteopathic structural exam other than those noted in the History and Physical/Consult. Vitals: Vital Signs Temp Pulse Resp BP Pulse Ox 12/24/23 16:54 72 16 143/92 96 12/24/23 14:00 67 13 127/71 96 12/24/23 13:00 60 20 130/78 98 12/24/23 12:00 65 8 L 138/82 99 12/24/23 11:01 97.5 F L 69 16 138/82 97 12/24/23 10:48 97.5 F L 68 16 104/71 98 Intake and Output 12/24/23 12/24/23 12/24/23 06:59 14:59 22:59 Other: Weight 72.575 kg Results CBC & Chem 7: 12/24/23 11:41 12/24/23 11:41 Labs: Abnormal Lab Results - Last 24 Hours (Table) 12/24/23 12/24/23 12/24/23 Range/Units 11:41 11:41 11:41 WBC 14.0 H (3.8-10.6) k/uL MCV 100.9 H (80.0-100.0) fL RDW 16.7 H (11.5-15.5) % Neutrophils # 12.3 H (1.3-7.7) k/uL Lymphocytes # 0.9 L (1.0-4.8) k/uL Sodium 134 L (137-145) mmol/L Chloride 97 L (98-107) mmol/L BUN 40 H (7-17) mg/dL Creatinine 6.43 H (0.52-1.04) mg/dL Glucose 115 H (74-99) mg/dL Magnesium 1.5 L (1.6-2.3) mg/dL AST 39 H (14-36) U/L ALT 45 H (4-34) U/L Total Protein 5.6 L (6.3-8.2) g/dL Albumin 3.1 L (3.5-5.0) g/dL Urine Appearance Cloudy H (Clear) Urine Protein 1+ H (Negative) Urine Blood Trace H (Negative) Ur Leukocyte Esterase Large H (Negative) Urine RBC 6 H (0-5) /hpf Urine WBC >182 H (0-5) /hpf Urine WBC Clumps Few H (None) /hpf Urine Bacteria Few H (None) /hpf
[2023-12-24] MEDS ORDERED: FLUTICASONE 50MCG/SPRAY NASAL 16GM EA NOSTRIL PRN (18:07)
[2023-12-24] MEDS: MAGNESIUM SULFATE-D5W PMX 1 GM in DEXTROSE/WATER 1 100ML.BAG IVPB SCH (18:43)
[2023-12-24] MEDS: allopurinoL 100 MG TAB PO SCH (20:19)
[2023-12-24] MEDS: ATORVASTATIN 40 MG TAB PO SCH (20:19)
[2023-12-24] MEDS: APIXABAN 2.5 MG TABLET PO SCH (20:19)
[2023-12-24] MEDS: AMIODARONE 200 MG TAB PO SCH (20:19)
[2023-12-24] MEDS: DIALYSIS (PERITONL) DEX 1.5% 2,000 ML INTRAPERIT SCH (23:58)
--- NOTE | 2023-12-25 06:59 | P.GSCN ---
History of Present Illness Consult date: 12/25/23 Reason for Consult: CT findings of pneumoperitoneum History of present illness: Patient is a very pleasant 83-year-old female with a past medical history of ESRD on peritoneal dialysis, paroxysmal atrial fibrillation on anticoagulation with Eliquis, hypertension, hyperlipidemia, and chronic recurrent UTIs. Patient presented to the emergency department with a chief complaint of generalized weakness. Patient reports this began on 12/18/2024 and states that she went to her PCP for evaluation and was started on amoxicillin. Reports throughout the week but his weakness continued to worsen so she got her to the e mergency department for further evaluation. Patient denies having any fevers, chills, diaphoresis, headache, lightheadedness, dizziness, chest pain, palpitations, shortness of breath, cough or congestion, abdominal pain, nausea, vomiting, changes in urinary or bowel function, or experiencing any nu mbness/tingling/weakness/swelling in her extremities. She reports that she continues to urinate but is limited to only once or twice daily secondary to her ESRD. She reports she has been undergoing her scheduled nightly peritoneal dialysis with last dialysis session starting last night and discontinued this morning. She denies having any recent medication changes or changes in dialysis solution or volume. Upon arrival to the emergency department patient underwent evaluation. Vital signs upon arrival show blood pressure 104/71, heart rate 68, respiratory rate 16, temp 97.5 F, and SpO2 of 98% on room air. EKG completed showing normal sinus rhythm at 76 bpm with degree AV block with WI interval of 214 ms and no significant T wave or ST abnormalities showing no signs of acute ischemia upon personal review and interpretation. Chest x-ray completed showing large pneumoperitoneum. CT abdomen and pelvis completed showing moderate to large volume pneumoperitoneum, unable to rule out perforated viscus, moderate sized hiatal hernia, and multiple diverticula are seen in the descending and sigmoid region in particular without current evidence of inflammatory changes, small amount of free pelvic fluid, and diffusely increased hepatic attenuation possibly secondary to amiodarone use versus iron deposition versus copper deposition diseases, and grossly stable appearance of the kidneys with multiple cystic and hemorrhagic complex cysts as well as scattered punctate calcifications. Labs were completed and reviewed. CBC showing leukocytosis with WBC count of 14.0 and macrocytosis with MCV of 100.9. BMP showing hyponatremia with sodium of 134 and hypochloremia with chloride of 97. Renal function consistent with known ESRD with BUN of 40, creatinine 6.43, GFR of 6. Magnesium was low at 1.5. Liver profile showing elevated AST of 39, ALT of 45, and normal alkaline phosphatase of 122. Urinalysis showing positive protein, trace blood, leukocytes, 6 RBCs, greater than 182 WBCs. Patient was admitted under our services with consultation to general surgery and nephrology. Review of systems: Pertinent positives and negatives as discussed in HPI, a complete review of systems was performed and all other systems are negative Past Medical History Past Medical History: CVA/TIA, Hyperlipidemia, Hypertension, Renal Disease Additional Past Medical History / Comment(s): TIA, ESRD on periotneal dialysis, UTIs, dizziness, gout, arthiritis, back pain with UTIs. History of Any Multi-Drug Resistant Organisms: VRE Year Discovered:: 08/16/23 MDRO Source:: Urine Past Surgical History: Section, Hysterectomy, Joint Replacement, Orthopedic Surgery Additional Past Surgical History / Comment(s): 3 C-Sections, hysterectomy with vaginal repair, bilateral total knees, R shoulder acromioplasty, excision distal clavicle rotator cuff repair, bilateral cataract removal with lens implants, L breast bx-benign, varicose vein stripping bilaterally, peritoneal HD cath Past Anesthesia/Blood Transfusion Reactions: No Reported Reaction Past Psychological History: No Psychological Hx Reported Additional Psychological History / Comment(s): Pt resides with her spouse. She is independent. She uses a walker. She drives. Smoking Status: Never smoker Past Alcohol Use History: None Reported Past Drug Use History: None Reported - Past Family History Brother(s) Family Medical History: Renal Disease Father Family Medical History: Unable to Obtain Mother Family Medical History: Coronary Artery Disease (CAD), CVA/TIA Additional Family Medical History / Comment(s): Mother at 92 yrs of age. She had TIA's. Medications and Allergies Home Medications Medication Instructions Recorded Confirmed Type allopurinoL [Zyloprim] 100 mg PO BID 05/22/17 12/24/23 History Rosuvastatin [Crestor] 20 mg PO HS 09/15/22 12/24/23 History calcitrioL 0.25 mcg PO MO 05/24/23 12/24/23 History Apixaban [Eliquis] 2.5 mg PO BID 90 Days #180 tab 07/08/23 12/24/23 Rx Amiodarone [Cordarone] 200 mg PO BID 07/20/23 12/24/23 History Midodrine [ProAmatine] 5 mg PO TID PRN 07/20/23 12/24/23 History Cranberry Concentrate-Ascorbic 1 cap PO DAILY 10/07/23 12/24/23 History Acid 4,200mg-20mg Capsule Famotidine [Pepcid] 20 mg PO BID 10/07/23 12/24/23 History Ondansetron Odt [Zofran ODT] 4 mg PO Q8HR PRN #10 tab 10/07/23 12/24/23 Rx Amoxicillin 875 mg PO Q12HR 12/24/23 12/24/23 History Benzonatate [Tessalon Perle] 200 mg PO TID PRN 12/24/23 12/24/23 History Fluticasone Nasal [place] [Flonase 2 spray EA NOSTRIL BID PRN 12/24/23 12/24/23 History Nasal [place]] predniSONE See Taper PO DIRECTED 12/24/23 12/24/23 History Allergies Allergy/AdvReac Type Severity Reaction Status Date / Time losartan [Losartan] Allergy Unknown Verified 12/24/23 14:12 LUANA Inhibitors AdvReac Cough Verified 12/24/23 14:12 levofloxacin [From Levaquin] AdvReac Hallucinati Verified 12/24/23 14:12 ons Surgical - Exam Osteopathic Statement: *. No significant issues noted on an osteopathic structural exam other than those noted in the History and Physical/Consult. Vital Signs Temp Pulse Resp BP Pulse Ox 97.5 F L 68 16 104/71 98 12/24/23 10:48 12/24/23 10:48 12/24/23 10:48 12/24/23 10:48 12/24/23 10:48 Vital signs reviewed and stable. General: Nontoxic, no distress and appears stated age. Derm: Skin warm and dry, normal coloration for ethnicity. Head: Atraumatic, normocephalic and symmetric. Eyes: EOMs intact, no lid lag, and anicteric sclera Mouth: no lip lesions, mucus membranes moist Cardiovascular: regular rate and rhythm with normal S1S2, no murmur, positive posterior tibial pulses bilaterally, and cap refill < 2 seconds. Lungs: Respirations even, regular, and unlabored on room air. Lungs CTA bilaterally, no rhonchi, no rales, no wheezing, and no accessory muscle usage. Abdominal: soft, nontender to palpation, no guarding, no appreciable organomegaly. Peritoneal dialysis catheter left lower quadrant no surrounding erythema or drainage. Ext: ROM intact. No gross muscle atrophy, no edema, no contractures Neuro: Speech clear, face symmetrical and CN II-XII grossly intact with no noted focal neuro deficits Psych: Alert and oriented to person, place, time, and situation. Appropriate and pleasant affect. Results - Labs 12/24/23 11:41 12/24/23 11:41 Abnormal Lab Results - Last 24 Hours (Table) 12/24/23 12/24/23 12/24/23 Range/Units 11:41 11:41 11:41 WBC 14.0 H (3.8-10.6) k/uL MCV 100.9 H (80.0-100.0) fL RDW 16.7 H (11.5-15.5) % Neutrophils # 12.3 H (1.3-7.7) k/uL Lymphocytes # 0.9 L (1.0-4.8) k/uL Sodium 134 L (137-145) mmol/L Chloride 97 L (98-107) mmol/L BUN 40 H (7-17) mg/dL Creatinine 6.43 H (0.52-1.04) mg/dL Glucose 115 H (74-99) mg/dL Magnesium 1.5 L (1.6-2.3) mg/dL AST 39 H (14-36) U/L ALT 45 H (4-34) U/L Total Protein 5.6 L (6.3-8.2) g/dL Albumin 3.1 L (3.5-5.0) g/dL Urine Appearance Cloudy H (Clear) Urine Protein 1+ H (Negative) Urine Blood Trace H (Negative) Ur Leukocyte Esterase Large H (Negative) Urine RBC 6 H (0-5) /hpf Urine WBC >182 H (0-5) /hpf Urine WBC Clumps Few H (None) /hpf Urine Bacteria Few H (None) /hpf Diabetes panel 12/24/23 Range/Units 11:41 Sodium 134 L (137-145) mmol/L Potassium 4.0 (3.5-5.1) mmol/L Chloride 97 L (98-107) mmol/L Carbon Dioxide 29 (22-30) mmol/L BUN 40 H (7-17) mg/dL Creatinine 6.43 H (0.52-1.04) mg/dL Glucose 115 H (74-99) mg/dL Calcium 9.5 (8.4-10.2) mg/dL AST 39 H (14-36) U/L ALT 45 H (4-34) U/L Alkaline Phosphatase 122 (38-126) U/L Total Protein 5.6 L (6.3-8.2) g/dL Albumin 3.1 L (3.5-5.0) g/dL Calcium panel 12/24/23 Range/Units 11:41 Calcium 9.5 (8.4-10.2) mg/dL Albumin 3.1 L (3.5-5.0) g/dL Pituitary panel 12/24/23 Range/Units 11:41 Sodium 134 L (137-145) mmol/L Potassium 4.0 (3.5-5.1) mmol/L Chloride 97 L (98-107) mmol/L Carbon Dioxide 29 (22-30) mmol/L BUN 40 H (7-17) mg/dL Creatinine 6.43 H (0.52-1.04) mg/dL Glucose 115 H (74-99) mg/dL Calcium 9.5 (8.4-10.2) mg/dL Adrenal panel 12/24/23 Range/Units 11:41 Sodium 134 L (137-145) mmol/L Potassium 4.0 (3.5-5.1) mmol/L Chloride 97 L (98-107) mmol/L Carbon Dioxide 29 (22-30) mmol/L BUN 40 H (7-17) mg/dL Creatinine 6.43 H (0.52-1.04) mg/dL Glucose 115 H (74-99) mg/dL Calcium 9.5 (8.4-10.2) mg/dL Total Bilirubin 1.2 (0.2-1.3) mg/dL AST 39 H (14-36) U/L ALT 45 H (4-34) U/L Alkaline Phosphatase 122 (38-126) U/L Total Protein 5.6 L (6.3-8.2) g/dL Albumin 3.1 L (3.5-5.0) g/dL Assessment and Plan Assessment: 83 yo female presenting with weakness likely secondary to UTI hx of daily peritoneal dialysis hx of diverticulosis Plan: Patients who receive daily peritoneal dialysis treatments are subjected to have pneumoperitoneum in some cases She has NO ABDOMINAL PAIN, will continue to observe. If abdominal exam changes will consider intervention at this time. review of labs demonstrates UTI and not that of perforated viscus or ischemia NO SURGICAL INTERVENTION, will likely sign off tomorrow. Time with Patient: Less than 30
[2023-12-25] MEDS: FAMOTIDINE 20 MG TAB PO SCH (08:32)
[2023-12-25 10:14] LABS: Anisocytosis Slight; HCT 37.1 % (34.0-46.0); HGB 11.5 gm/dL (11.4-16.0); MCH 31.3 pg (25.0-35.0); MCV 100.9 fL (80.0-100.0); Macrocytosis Slight; Mean Platelet Volume 7.5; Platelet Count 367 k/uL (150-450); RBC 3.68 m/uL (3.80-5.40); RDW 16.6 % (11.5-15.5); WBC 15.1 k/uL (3.8-10.6)
[2023-12-25 10:21] LABS: ALT 36 U/L (4-34); AST 31 U/L (14-36); African American GFR (CKD) 6 (>60 ml/min/1.73 sqM); Albumin 2.9 g/dL (3.5-5.0); Albumin/Globulin Ratio 1.3; Alkaline Phosphatase 92 U/L (38-126); Anion Gap 6 mmol/L; Blood Urea Nitrogen 42 mg/dL (7-17); Calcium 9.4 mg/dL (8.4-10.2); Carbon Dioxide 29 mmol/L (22-30); Chloride 98 mmol/L (98-107); Globulin 2.3 g/dL; Glucose 84 mg/dL (74-99); Magnesium 2.4 mg/dL (1.6-2.3); Non-African American GFR(CKD) 5 (>60 ml/min/1.73 sqM); Potassium 3.6 mmol/L (3.5-5.1); Sodium 133 mmol/L (137-145); Total Bilirubin 1.2 mg/dL (0.2-1.3); Total Protein 5.2 g/dL (6.3-8.2)
--- NOTE | 2023-12-25 11:05 | P.NPCON ---
History of Present Illness - Reason for Consult end stage renal disease - History of Present Illness Reason for consultation: End-stage renal disease History of present illness: Patient is 83-year-old female seen in renal consultation for end-stage renal disease. She is maintained on peritoneal dialysis. Denies cloudy dialysate. Patient came to the hospital due to generalized weakness. Patient states she could only walk using her walker and also felt dizzy at times. Hemodynamically stable. Denies fever or chills. Denies any abdominal pain or discomfort. She was recently diagnosed with UTI outpatient and was started on amoxicillin. Currently she is receiving IV Rocephin. Denies vomiting or diarrhea. No chest pain or shortness of breath. Denies history of diabetes or coronary artery di sease. Vital signs are stable. General: No acute distress. HEENT: Head exam is unremarkable. LUNGS: No audible rhonchi or wheezes. HEART: Rate and Rhythm are regular. ABDOMEN: Nontender. EXTREMITITES: No edema. 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 History of Any Multi-Drug Resistant Organisms: VRE Date of last positivie culture/infection: 08/16/23 MDRO Source:: Urine Past Surgical History: Section, Hysterectomy, Joint Replacement, Orthopedic Surgery Additional Past Surgical History / Comment(s): 3 C-Sections, hysterectomy with vaginal repair, bilateral total knees, R shoulder acromioplasty, excision distal clavicle rotator cuff repair, bilateral cataract removal with lens implants, L breast bx-benign, varicose vein stripping bilaterally, peritoneal HD cath Past Anesthesia/Blood Transfusion Reactions: No Reported Reaction Past Psychological History: No Psychological Hx Reported Additional Psychological History / Comment(s): Pt resides with her spouse. She is independent. She uses a walker. She drives. Smoking Status: Never smoker Past Alcohol Use History: None Reported Past Drug Use History: None Reported - Past Family History Brother(s) Family Medical History: Renal Disease Father Family Medical History: Unable to Obtain Mother Family Medical History: Coronary Artery Disease (CAD), CVA/TIA Additional Family Medical History / Comment(s): Mother at 92 yrs of age. She had TIA's. Medications and Allergies Home Medications Medication Instructions Recorded Confirmed Type allopurinoL [Zyloprim] 100 mg PO BID 05/22/17 12/24/23 History Rosuvastatin [Crestor] 20 mg PO HS 09/15/22 12/24/23 History calcitrioL 0.25 mcg PO MO 05/24/23 12/24/23 History Apixaban [Eliquis] 2.5 mg PO BID 90 Days #180 tab 07/08/23 12/24/23 Rx Amiodarone [Cordarone] 200 mg PO BID 07/20/23 12/24/23 History Midodrine [ProAmatine] 5 mg PO TID PRN 07/20/23 12/24/23 History Cranberry Concentrate-Ascorbic 1 cap PO DAILY 10/07/23 12/24/23 History Acid 4,200mg-20mg Capsule Famotidine [Pepcid] 20 mg PO BID 10/07/23 12/24/23 History Ondansetron Odt [Zofran ODT] 4 mg PO Q8HR PRN #10 tab 10/07/23 12/24/23 Rx Amoxicillin 875 mg PO Q12HR 12/24/23 12/24/23 History Benzonatate [Tessalon Perle] 200 mg PO TID PRN 12/24/23 12/24/23 History Fluticasone Nasal [place] [Flonase 2 spray EA NOSTRIL BID PRN 12/24/23 12/24/23 History Nasal [place]] predniSONE See Taper PO DIRECTED 12/24/23 12/24/23 History Allergies Allergy/AdvReac Type Severity Reaction Status Date / Time losartan [Losartan] Allergy Unknown Verified 12/24/23 14:12 LUANA Inhibitors AdvReac Cough Verified 12/24/23 14:12 levofloxacin [From Levaquin] AdvReac Hallucinati Verified 12/24/23 14:12 ons Physical Exam Vitals: Vital Signs Temp Pulse Pulse Resp BP BP Pulse Ox 12/25/23 07:45 97.7 F 71 16 126/85 90 L 12/25/23 06:05 97.8 F 69 17 113/70 96 12/25/23 01:26 97.8 F 70 17 127/70 95 12/25/23 00:00 97.8 F 69 17 130/75 95 12/24/23 20:10 78 17 05/25/24 20:00 97.6 F 71 141/89 94 L 12/24/23 18:25 97.7 F 78 17 152/83 94 L 12/24/23 18:11 97.9 F 71 18 136/88 97 12/24/23 16:54 72 16 143/92 96 12/24/23 14:00 67 13 127/71 96 12/24/23 13:00 60 20 130/78 98 12/24/23 12:00 65 8 L 138/82 99 12/24/23 11:01 97.5 F L 69 16 138/82 97 Intake and Output 12/24/23 12/25/23 12/25/23 22:59 06:59 14:59 Intake Total 100 Balance 100 Intake: Intake, IV Titration 100 Amount Magnesium Sulfate-D5w Pmx 100 1 gm In Dextrose/Water 1 100ml.bag @ 100 mls/hr IVPB Q1H COUNTS INCLUDE 234 BEDS AT THE [facility] Rx#: [id number] Oral 0 Other: Voiding Method Toilet # Voids 2 Weight 72.575 kg Results - Lab Results Most recent lab results Calcium 9.4 mg/dL (8.4-10.2) 12/25/23 09:53 Magnesium 2.4 mg/dL (1.6-2.3) H 12/25/23 09:53 12/25/23 09:53 12/25/23 09:53 Assessment and Plan Plan: Assessment: 1. End-stage renal disease maintained on peritoneal dialysis. 2. UTI on antibiotics. 3. Hypomagnesemia from poor intake. Replaced. Better. 4. Chronic kidney disease mineral bone disease. 5. History of diverticulosis. Plan: Maintain current PD exchanges. 2 L every 6 hours with 1.5% dextrose solution. Check dialysate for cell count culture and Gram stain. Check phosphorus level. Thank you for the consultation. I will continue to follow the patient with you during her hospital stay.
--- NOTE | 2023-12-25 13:59 | P.PN ---
Subjective Progress Note Date: 12/25/23 Hospital Course: Patient is a very pleasant 83-year-old female with a past medical history of ESRD on peritoneal dialysis, paroxysmal atrial fibrillation on anticoagulation with Eliquis, hypertension, hyperlipidemia, and chronic recurrent UTIs. Patient presented to the emergency department with a chief complaint of generalized weakness. Patient reports this began on 12/18/2024 and states that she went to her PCP for evaluation and was diagnosed with a UTI and started on amoxicillin. Pt reports throughout the week weakness continued to worsen so she had her bring her to the emergency department for further evaluation. Upon arrival to the emergency department patient underwent evaluation. Vital signs upon arrival show blood pressure 104/71, heart rate 68, respiratory rate 16, temp 97.5 F, and SpO2 of 98% on room air. EKG completed showing normal sinus rhythm at 76 bpm with degree AV block with OR interval of 214 ms and no significant T wave or ST abnormalities showing no signs of acute ischemia upon personal review and interpretation. Chest x-ray completed showing large pneumoperitoneum. CT abdomen and pelvis completed showing moderate to large volume pneumoperitoneum, unable to rule out perforated viscus, moderate sized hiatal hernia, and multiple diverticula are seen in the descending and sigmoid region in particular without current evidence of inflammatory changes, small amount of free pelvic fluid, and diffusely increased hepatic attenuation possibly secondary to amiodarone use versus iron deposition versus copper deposi tion diseases, and grossly stable appearance of the kidneys with multiple cystic and hemorrhagic complex cysts as well as scattered punctate calcifications. Labs were completed and reviewed. CBC showing leukocytosis with WBC count of 14.0 and macrocytosis with MCV of 100.9. BMP showing hyponatremia with sodium of 134 and hypochloremia with chloride of 97. Renal function consistent with known ESRD with BUN of 40, creatinine 6.43, GFR of 6. Magnesium was low at 1.5. Liver profile showing elevated AST of 39, ALT of 45, and normal alkaline phosphatase of 122. Urinalysis showing positive protein, trace blood, leukocytes, 6 RBCs, greater than 182 WBCs. Patient was admitted under our services with consultation to general surgery and nephrology. Physical exam: Patient seen and fully evaluated at bedside. She continues to have complaints of generalized weakness and fatigue but continues to deny having any abdominal pain or discomfort. Vital signs reviewed and stable. General: Nontoxic, no distress and appears stated age. Derm: Skin warm and dry, normal coloration for ethnicity. Head: Atraumatic, normocephalic and symmetric. Eyes: EOMs intact, no lid lag, and anicteric sclera Mouth: no lip lesions, mucus membranes moist Cardiovascular: regular rate and rhythm with normal S1S2, no murmur, positive posterior tibial pulses bilaterally, and cap refill < 2 seconds. Lungs: Respirations even, regular, and unlabored on room air. Lungs CTA bilaterally, no rhonchi, no rales, no wheezing, and no accessory muscle usage. Abdominal: soft, nontender to palpation, no guarding, no appreciable organomegaly. Peritoneal dialysis catheter left lower quadrant no surrounding erythema or drainage. Ext: ROM intact. No gross muscle atrophy, no edema, no contractures Neuro: Speech clear, face symmetrical and CN II-XII grossly intact with no noted focal neuro deficits Psych: Alert and oriented to person, place, time, and situation. Appropriate and pleasant affect. Assessment and Plan of Care: Generalized weakness and fatigue UTI -Continue IV antibiotics with Rocephin 2 g IVPB daily. -Follow-up on urine cultures and blood culture results. -Urine Culture obtained outpatient on 12/19/2023 showing preliminary positive culture for Proteus Mirabella's and gram-negative bacilli -Telemetry monitoring. -Consult PT/OT -Symptomatic care and pain management. -Fall precautions. Abnormal CT findings showing large volume pneumoperitoneum -Unclear, patient free from any abdominal pain or discomfort and tolerating pe ritoneal dialysis. Pneumoperitoneum findings likely secondary to peritoneal dialysis as patient is asymptomatic of any abdominal complaints, however consult was placed to general surgery for further evaluation. -General surgery evaluated, stating no need for surgical intervention at this time. ESRD on peritoneal dialysis -Nephrology consulted for management of peritoneal dialysis. Paroxysmal atrial fibrillation. Hypertension Hyperlipidemia History of TIA -Continue Eliquis 2.5 mg twice daily, atorvastatin 40 mg nightly, amiodarone 200 mg twice daily, and midodrine 5 mg 3 times daily as needed ordered for systolic pressure less than 110. Data and imaging reviewed: Morning labs completed and reviewed. CBC showing leukocytosis with WBC count of 15.1 and macrocytosis with MCV of 100.9. BMP showing mild hyponatremia with sodium of 133 renal function consistent with known ESRD with BUN of 42, creatinine 6.78, GFR 5. Urine culture completed outpatient on 12/19/2023 showing preliminary positive culture for Proteus Mirabella's and gram-negative bacilli Vital signs reviewed. Blood pressure 126/85, heart rate 71, respiratory rate 16, temp 97.7 F, and SpO2 of 90% on room air. CODE STATUS: Full code DVT prophylaxis: Eliquis Anticipated discharge date: Clinical course to determine Anticipated discharge place: Clinical course to determine Patient was seen independently by Nurse Practitioner. This document was prepared using [employer] dictation software. Please allow for errors in estimator and drafter supervisor while rare they do occur. .. I reviewed the documentation as provided by the BERYL above, who is the original author of this note. I agree with the documented assessment and plan, with the following changes: none Objective - Vital Signs Vital signs: Vital Signs Temp 97.8 F 12/25/23 06:05 Pulse 69 12/25/23 06:05 Resp 17 12/25/23 06:05 BP 113/70 12/25/23 06:05 Pulse Ox 96 12/25/23 06:05 FiO2 Intake & Output 12/24/23 12/25/23 12/25/23 18:59 06:59 18:59 Intake Total 100 Balance 100 Weight 72.575 kg Intake: Intake, IV Titration 100 Amount Magnesium Sulfate-D5w Pmx 100 1 gm In Dextrose/Water 1 100ml.bag @ 100 mls/hr IVPB Q1H [facility] Rx#: [id number] Oral 0 Other: Voiding Method Toilet # Voids 2 - Labs CBC & Chem 7: 12/26/23 07:00 12/26/23 07:00 Labs: Abnormal Lab Results - Last 24 Hours (Table) 12/24/23 12/24/23 12/24/23 Range/Units 11:41 11:41 11:41 WBC 14.0 H (3.8-10.6) k/uL MCV 100.9 H (80.0-100.0) fL RDW 16.7 H (11.5-15.5) % Neutrophils # 12.3 H (1.3-7.7) k/uL Lymphocytes # 0.9 L (1.0-4.8) k/uL Sodium 134 L (137-145) mmol/L Chloride 97 L (98-107) mmol/L BUN 40 H (7-17) mg/dL Creatinine 6.43 H (0.52-1.04) mg/dL Glucose 115 H (74-99) mg/dL Magnesium 1.5 L (1.6-2.3) mg/dL AST 39 H (14-36) U/L ALT 45 H (4-34) U/L Total Protein 5.6 L (6.3-8.2) g/dL Albumin 3.1 L (3.5-5.0) g/dL Urine Appearance Cloudy H (Clear) Urine Protein 1+ H (Negative) Urine Blood Trace H (Negative) Ur Leukocyte Esterase Large H (Negative) Urine RBC 6 H (0-5) /hpf Urine WBC >182 H (0-5) /hpf Urine WBC Clumps Few H (None) /hpf Urine Bacteria Few H (None) /hpf
[2023-12-25 22:53] LABS: Appearance,BF Clear (Clear)
[2023-12-26] MEDS: LOPERAMIDE 2 MG CAP PO STA (00:31)
[2023-12-26 08:24] LABS: African American GFR (CKD) 6 (>60 ml/min/1.73 sqM); Anion Gap 8 mmol/L; Blood Urea Nitrogen 40 mg/dL (7-17); Calcium 9.1 mg/dL (8.4-10.2); Carbon Dioxide 27 mmol/L (22-30); Chloride 96 mmol/L (98-107); Glucose 104 mg/dL (74-99); Magnesium 2.1 mg/dL (1.6-2.3); Non-African American GFR(CKD) 6 (>60 ml/min/1.73 sqM); Potassium 3.3 mmol/L (3.5-5.1); Sodium 131 mmol/L (137-145)
[2023-12-26] MEDS: MIDODRINE 5 MG TAB PO PRN (09:36)
[2023-12-26 09:58] LABS: Anisocytosis Slight; HCT 38.3 % (34.0-46.0); HGB 11.8 gm/dL (11.4-16.0); MCH 31.1 pg (25.0-35.0); MCHC 30.8 g/dL (31.0-37.0); Macrocytosis Slight; Mean Platelet Volume 8.9; Platelet Count 323 k/uL (150-450); RBC 3.79 m/uL (3.80-5.40); RDW 16.8 % (11.5-15.5); WBC 13.8 k/uL (3.8-10.6)
--- NOTE | 2023-12-26 10:40 | P.PN ---
Subjective Progress Note Date: 12/26/23 Principal diagnosis: Pneumoperitoneum Patient doing well today. Tolerating diet. No abdominal pain. No nausea or vomiting. Objective - Vital Signs Vital signs: Vital Signs Temp 98.1 F 12/26/23 07:14 Pulse 73 12/26/23 07:14 Resp 16 12/26/23 07:14 BP 107/74 12/26/23 07:14 Pulse Ox 95 12/26/23 07:14 FiO2 Intake & Output 12/25/23 12/26/23 12/26/23 18:59 06:59 18:59 Intake Total 540 Balance 540 Intake: Oral 540 Other: Voiding Method Toilet Toilet # Voids 1 3 - Exam Abdomen: Soft, nontender, nondistended - Labs CBC & Chem 7: 12/26/23 07:00 12/26/23 07:00 Labs: Abnormal Lab Results - Last 24 Hours (Table) 12/25/23 12/26/23 12/26/23 Range/Units 09:53 07:00 07:00 WBC 13.8 H (3.8-10.6) k/uL RBC 3.79 L (3.80-5.40) m/uL MCV 101.0 H (80.0-100.0) fL MCHC 30.8 L (31.0-37.0) g/dL RDW 16.8 H (11.5-15.5) % Sodium 131 L (137-145) mmol/L Potassium 3.3 L (3.5-5.1) mmol/L Chloride 96 L (98-107) mmol/L BUN 40 H (7-17) mg/dL Creatinine 6.39 H (0.52-1.04) mg/dL Glucose 104 H (74-99) mg/dL Phosphorus 4.8 H (2.5-4.5) mg/dL Microbiology - Last 24 Hours (Table) 12/24/23 17:00 Blood Culture - Preliminary Blood 12/24/23 16:45 Blood Culture - Preliminary Blood 12/24/23 11:41 Urine Culture - Preliminary Urine,Voided Gram Neg Bacilli Assessment and Plan (1) Pneumoperitoneum of unknown etiology Narrative/Plan: 83-year-old female with pneumoperitoneum related to the patient's indwelling catheter. Continue regular diet. Continue antibiotics for UTI. Will sign off. Please reconsult if needed. Current Visit: Yes Status: Acute Code(s): K66.8 - OTHER SPECIFIED DISORDERS OF PERITONEUM SNOMED Code(s): 92599982
--- NOTE | 2023-12-26 11:54 | P.PN ---
Subjective Patient is seen in follow-up for end-stage renal disease. She is maintained on peritoneal dialysis. On antibiotics for UTI. Feels weak. Vital signs are stable. General: No acute distress. HEENT: Head exam is unremarkable. LUNGS: No audible rhonchi or wheezes. HEART: Rate and Rhythm are regular. ABDOMEN: Nontender. EXTREMITITES: No edema. Objective - Vital Signs Vital signs: Vital Signs Temp 98.1 F 12/26/23 07:14 Pulse 73 12/26/23 07:14 Resp 16 12/26/23 07:14 BP 107/74 12/26/23 07:14 Pulse Ox 95 12/26/23 07:14 FiO2 Intake & Output 12/25/23 12/26/23 12/26/23 18:59 06:59 18:59 Intake Total 540 Balance 540 Intake: Oral 540 Other: Voiding Method Toilet Toilet # Voids 1 3 - Labs CBC & Chem 7: 12/26/23 07:00 12/26/23 07:00 Labs: Abnormal Lab Results - Last 24 Hours (Table) 12/25/23 12/26/23 12/26/23 Range/Units 09:53 07:00 07:00 WBC 13.8 H (3.8-10.6) k/uL RBC 3.79 L (3.80-5.40) m/uL MCV 101.0 H (80.0-100.0) fL MCHC 30.8 L (31.0-37.0) g/dL RDW 16.8 H (11.5-15.5) % Sodium 131 L (137-145) mmol/L Potassium 3.3 L (3.5-5.1) mmol/L Chloride 96 L (98-107) mmol/L BUN 40 H (7-17) mg/dL Creatinine 6.39 H (0.52-1.04) mg/dL Glucose 104 H (74-99) mg/dL Phosphorus 4.8 H (2.5-4.5) mg/dL Microbiology - Last 24 Hours (Table) 12/24/23 17:00 Blood Culture - Preliminary Blood 12/24/23 16:45 Blood Culture - Preliminary Blood 12/24/23 11:41 Urine Culture - Preliminary Urine,Voided Gram Neg Bacilli Assessment and Plan Plan: Assessment: 1. End-stage renal disease maintained on peritoneal dialysis. 2. UTI on antibiotics. Urine culture positive for gram-negative bacilli. 3. Hypomagnesemia from poor intake. Replaced. Better. 4. Chronic kidney disease mineral bone disease. Phosphorus level 4.8 dated December 25, 2023. 5. History of diverticulosis. 6. Hypokalemia from PD losses and poor intake. Plan: Maintain current PD exchanges. 2 L every 6 hours with 1.5% dextrose solution. No evidence of peritonitis. Dialysate cell count 8. Replace potassium. As needed midodrine added due to blood pressures being on the lower side.
[2023-12-26] MEDS: POTASSIUM CHLORIDE ER 20 MEQ TAB.ER PO STA (12:15)
--- NOTE | 2023-12-26 13:37 | P.PN ---
Subjective Progress Note Date: 12/26/23 Hospital Course: Patient is a very pleasant 83-year-old female with a past medical history of ESRD on peritoneal dialysis, paroxysmal atrial fibrillation on anticoagulation with Eliquis, hypertension, hyperlipidemia, and chronic recurrent UTIs. Patient presented to the emergency department with a chief complaint of generalized weakness. Patient reports this began on 12/18/2024 and states that she went to her PCP for evaluation and was diagnosed with a UTI and started on amoxicillin. Pt reports throughout the week weakness continued to worsen so she had her bring her to the emergency department for further evaluation. Upon arrival to the emergency department patient underwent evaluation. Vital signs upon arrival show blood pressure 104/71, heart rate 68, respiratory rate 16, temp 97.5 F, and SpO2 of 98% on room air. EKG completed showing normal sinus rhythm at 76 bpm with degree AV block with SD interval of 214 ms and no significant T wave or ST abnormalities showing no signs of acute ischemia upon personal review and interpretation. Chest x-ray completed showing large pneumoperitoneum. CT abdomen and pelvis completed showing moderate to large volume pneumoperitoneum, unable to rule out perforated viscus, moderate sized hiatal hernia, and multiple diverticula are seen in the descending and sigmoid region in particular without current evidence of inflammatory changes, small amount of free pelvic fluid, and diffusely increased hepatic attenuation possibly secondary to amiodarone use versus iron deposition versus copper deposi tion diseases, and grossly stable appearance of the kidneys with multiple cystic and hemorrhagic complex cysts as well as scattered punctate calcifications. Labs were completed and reviewed. CBC showing leukocytosis with WBC count of 14.0 and macrocytosis with MCV of 100.9. BMP showing hyponatremia with sodium of 134 and hypochloremia with chloride of 97. Renal function consistent with known ESRD with BUN of 40, creatinine 6.43, GFR of 6. Magnesium was low at 1.5. Liver profile showing elevated AST of 39, ALT of 45, and normal alkaline phosphatase of 122. Urinalysis showing positive protein, trace blood, leukocytes, 6 RBCs, greater than 182 WBCs. Patient was admitted under our services with consultation to general surgery and nephrology. Physical exam: Patient seen and fully evaluated at bedside. She continues to have complaints of generalized weakness and fatigue but continues to deny having any abdominal pain or discomfort. Vital signs reviewed and stable. General: Nontoxic, no distress and appears stated age. Derm: Skin warm and dry, normal coloration for ethnicity. Head: Atraumatic, normocephalic and symmetric. Eyes: EOMs intact, no lid lag, and anicteric sclera Mouth: no lip lesions, mucus membranes moist Cardiovascular: regular rate and rhythm with normal S1S2, no murmur, positive posterior tibial pulses bilaterally, and cap refill < 2 seconds. Lungs: Respirations even, regular, and unlabored on room air. Lungs CTA bilaterally, no rhonchi, no rales, no wheezing, and no accessory muscle usage. Abdominal: soft, nontender to palpation, no guarding, no appreciable organomegaly. Peritoneal dialysis catheter left lower quadrant no surrounding erythema or drainage. Ext: ROM intact. No gross muscle atrophy, no edema, no contractures Neuro: Speech clear, face symmetrical and CN II-XII grossly intact with no noted focal neuro deficits Psych: Alert and oriented to person, place, time, and situation. Appropriate and pleasant affect. Assessment and Plan of Care: Dizziness upon standing, known history of orthostatic hypotension Generalized weakness and fatigue UTI -Continue IV antibiotics with Rocephin 2 g IVPB daily. -Follow-up on urine cultures and blood culture results. -Urine Culture obtained outpatient on 12/19/2023 showing preliminary positive culture for Proteus Mirabella's and gram-negative bacilli. -Repeat urine culture obtained upon admission again positive for gram-negative bacilli. Blood cultures showing no growth to date. -Telemetry monitoring. -Consult PT/OT -Secondary to patient's reports of inability to ambulate and dizziness upon standing we will schedule midodrine 5 mg 3 times daily. -Order placed for orthostatic vitals. -Symptomatic care and pain management. -Fall precautions. Abnormal CT findings showing large volume pneumoperitoneum -Unclear, patient free from any abdominal pain or discomfort and tolerating peritoneal dialysis. Pneumoperitoneum findings likely secondary to peritoneal dialysis as patient is asymptomatic of any abdominal complaints, however consult was placed to general surgery for further evaluation. -General surgery evaluated, stating no need for surgical intervention at this time. ESRD on peritoneal dialysis -Nephrology consulted for management of peritoneal dialysis. Paroxysmal atrial fibrillation. Hypertension Hyperlipidemia History of TIA -Continue Eliquis 2.5 mg twice daily, atorvastatin 40 mg nightly, amiodarone 200 mg twice daily, and midodrine 5 mg 3 times daily as needed ordered for systolic pressure less than 110. Data and imaging reviewed: Morning labs completed and reviewed. CBC with leukocytosis with WBC count of 13.8. BMP showing hyponatremia with sodium of 131, hypokalemia with potassium of 3.3, hypochloremia with chloride of 96 and renal function consistent with known ESRD with BUN of 40, creatinine is 6.39, and GFR of 6. Urine culture completed outpatient on 12/19/2023 showing preliminary positive culture for Proteus Mirabella's and gram-negative bacilli culture obtained upon arrival showing preliminarily positive for gram-negative bacilli. Vital signs reviewed. Blood pressure 107/74, heart rate 73, respiratory rate 16, temp 98.1 F, and SpO2 of 95% on room air. CODE STATUS: Full code DVT prophylaxis: Eliquis Anticipated discharge date: Pending evaluation by PT/OT patient will likely be discharged tomorrow morning. Anticipated discharge place: Home with home care. Patient was seen independently by Nurse Practitioner. This document was prepared using [employer] dictation software. Please allow for errors in blanket inspector while rare they do occur. .. I reviewed the documentation as provided by the BERYL above, who is the original author of this note. I agree with the documented assessment and plan, with the following changes: none Objective - Vital Signs Vital signs: Vital Signs Temp 98.1 F 12/26/23 07:14 Pulse 73 12/26/23 07:14 Resp 16 12/26/23 07:14 BP 107/74 12/26/23 07:14 Pulse Ox 95 12/26/23 07:14 FiO2 Intake & Output 12/25/23 12/26/23 12/26/23 18:59 06:59 18:59 Intake Total 540 Balance 540 Intake: Oral 540 Other: Voiding Method Toilet Toilet # Voids 1 3 - Labs CBC & Chem 7: 12/26/23 07:00 12/26/23 07:00 Labs: Abnormal Lab Results - Last 24 Hours (Table) 12/25/23 12/25/23 12/25/23 Range/Units 09:53 09:53 09:53 WBC 15.1 H (3.8-10.6) k/uL RBC 3.68 L (3.80-5.40) m/uL MCV 100.9 H (80.0-100.0) fL RDW 16.6 H (11.5-15.5) % Sodium 133 L (137-145) mmol/L Potassium (3.5-5.1) mmol/L Chloride (98-107) mmol/L BUN 42 H (7-17) mg/dL Creatinine 6.78 H (0.52-1.04) mg/dL Glucose (74-99) mg/dL Phosphorus 4.8 H (2.5-4.5) mg/dL Magnesium 2.4 H (1.6-2.3) mg/dL ALT 36 H (4-34) U/L Total Protein 5.2 L (6.3-8.2) g/dL Albumin 2.9 L (3.5-5.0) g/dL 12/26/23 Range/Units 07:00 WBC (3.8-10.6) k/uL RBC (3.80-5.40) m/uL MCV (80.0-100.0) fL RDW (11.5-15.5) % Sodium 131 L (137-145) mmol/L Potassium 3.3 L (3.5-5.1) mmol/L Chloride 96 L (98-107) mmol/L BUN 40 H (7-17) mg/dL Creatinine 6.39 H (0.52-1.04) mg/dL Glucose 104 H (74-99) mg/dL Phosphorus (2.5-4.5) mg/dL Magnesium (1.6-2.3) mg/dL ALT (4-34) U/L Total Protein (6.3-8.2) g/dL Albumin (3.5-5.0) g/dL Microbiology - Last 24 Hours (Table) 12/24/23 17:00 Blood Culture - Preliminary Blood 12/24/23 16:45 Blood Culture - Preliminary Blood 12/24/23 11:41 Urine Culture - Preliminary Urine,Voided Gram Neg Bacilli
[2023-12-26] MEDS: MIDODRINE 5 MG TAB PO SCH (14:14)
[2023-12-27 01:13] VITALS: RESP 16
[2023-12-27 08:41] LABS: HCT 33.8 % (37.2-46.3); HGB 11.3 g/dL (12.0-15.0); MCH 31.7 pg (27.0-32.0); MCHC 33.4 g/dL (32.0-37.0); MCV 94.7 FL (80.0-97.0); Mean Platelet Volume 9.9 FL (9.5-12.2); NRBC Per 100 WBC 0 X 10*3/uL (0.00-0.01); Platelet Count 313 X 10*3/uL (140-440); RBC 3.57 X 10*6/uL (4.10-5.20); RDW 16.8 % (11.5-14.5); WBC 13.49 X 10*3/uL (4.50-10.00)
[2023-12-27 08:55] LABS: BUN/Creat Ratio 4.81 Ratio (12.00-20.00); Blood Urea Nitrogen 33.2 mg/dL (9.0-27.0); Calcium 9.1 mg/dL (8.7-10.3); Carbon Dioxide 25.8 mmol/L (21.6-31.8); Chloride 95 mmol/L (96-109); Glucose 98 mg/dL (70-110); Magnesium 2.2 mg/dL (1.5-2.4); Potassium 3.6 mmol/L (3.5-5.5); Sodium 136 mmol/L (135-145)
[2023-12-27] MEDS: ONDANSETRON ODT 4 MG TAB PO PRN (11:50)
[2023-12-27 12:45] VITALS: BP 146/85; PULSE 90; TEMP 98.2
--- NOTE | 2023-12-27 15:45 | P.DS ---
Providers Date of admission: 12/24/23 16:08 Expected date of discharge: 12/27/23 Attending physician: Audra Marinelli MD Consults: 12/24/23 17:51 Consult Physician Routine Consulting Provider: Edmundo Hernandez Consult Reason/Comments: peritoneal dialysis Do you want consulting provider notified?: Yes 12/27/23 13:32 Consult Physician Routine Consulting Provider: Luz Marina Murguia Consult Reason/Comments: uti Do you want consulting provider notified?: Already Contacted Primary care physician: [facility] Course: Discharge Diagnosis: Dizziness upon standing, known history of orthostatic hypotension. Discontinued as needed midodrine and started patient on midodrine 5 mg 3 times daily and instructed patient to hold for systolic pressure greater than 125. E. coli UTI. Urine culture positive for E. coli. Patient discharged home on Bactrim 800-160 mg tablets renal dosing for peritoneal dialysis patient to take 1 tablet daily for an additional 4 days to total a 7-day treatment course for E. coli UTI. Generalized weakness and fatigue. Secondary to above. Abnormal CT findings showing large volume pneumoperitoneum. Unclear, patient free from any abdominal pain or discomfort and tolerating peritoneal dialysis. Pneumoperitoneum findings likely secondary to peritoneal dialysis as patient is asymptomatic of any abdominal complaints, however consult was placed to general surgery for further evaluation. General surgery evaluated, stating no need for surgical intervention at this time. ESRD on peritoneal dialysis. Nephrology consulted for management of peritoneal dialysis. Paroxysmal atrial fibrillation. Continue Eliquis 2.5 mg twice daily and amiodarone 200 mg twice daily. Hypertension. Hyperlipidemia History of TIA Hospital Course: Patient is a very pleasant 83-year-old female with a past medical history of ESRD on peritoneal dialysis, paroxysmal atrial fibrillation on anticoagulation with Eliquis, hypertension, hyperlipidemia, and chronic recurrent UTIs. Patient presented to the emergency department with a chief complaint of generalized weakness. Patient reports this began on 12/18/2024 and states that she went to her PCP for evaluation and was diagnosed with a UTI and started on amoxicillin. Pt reports throughout the week weakness continued to worsen so she had her bring her to the emergency department for further evaluation. Upon arrival to the emergency department patient underwent evaluation. Vital signs upon arrival show blood pressure 104/71, heart rate 68, respiratory rate 16, temp 97.5 F, and SpO2 of 98% on room air. EKG completed showing normal sinus r hythm at 76 bpm with degree AV block with ID interval of 214 ms and no significant T wave or ST abnormalities showing no signs of acute ischemia upon personal review and interpretation. Chest x-ray completed showing large pneumoperitoneum. CT abdomen and pelvis completed showing moderate to large volume pneumoperitoneum, unable to rule out perforated viscus, moderate sized hiatal hernia, and multiple diverticula are seen in the descending and sigmoid region in particular without current evidence of inflammatory changes, small amount of free pelvic fluid, and diffusely increased hepatic attenuation possibly secondary to amiodarone use versus iron deposition versus copper deposition diseases, and grossly stable appearance of the kidneys with multiple cystic and hemorrhagic complex cysts as well as scattered punctate calcifications. Labs were completed and reviewed. CBC showing leukocytosis with WBC count of 14.0 and macrocytosis with MCV of 100.9. BMP showing hyponatremia with sodium of 134 and hypochloremia with chloride of 97. Renal function consistent with known ESRD with BUN of 40, creatinine 6.43, GFR of 6. Magnesium was low at 1.5. Liver profile showing elevated AST of 39, ALT of 45, and normal alkaline phosphatase of 122. Urinalysis showing positive protein, trace blood, leukocytes, 6 RBCs, greater than 182 WBCs. Patient was admitted under our services with consultation to general surgery and nephrology. Physical exam: Vital signs reviewed and stable. General: Nontoxic, no distress and appears stated age. Derm: Skin warm and dry, normal coloration for ethnicity. Head: Atraumatic, normocephalic and symmetric. Eyes: EOMs intact, no lid lag, and anicteric sclera Mouth: no lip lesions, mucus membranes moist Cardiovascular: regular rate and rhythm with normal S1S2, no murmur, positive posterior tibial pulses bilaterally, and cap refill < 2 seconds. Lungs: Respirations even, regular, and unlabored on room air. Lungs CTA bilaterally, no rhonchi, no rales, no wheezing, and no accessory muscle usage. Abdominal: soft, nontender to palpation, no guarding, no appreciable organomegaly. Peritoneal dialysis catheter left lower quadrant no surrounding erythema or drainage. Ext: ROM intact. No gross muscle atrophy, no edema, no contractures Neuro: Speech clear, face symmetrical and CN II-XII grossly intact with no noted focal neuro deficits Psych: Alert and oriented to person, place, time, and situation. Appropriate and pleasant affect. A total of 33 minutes of time were spent preparing this complex discharge summary. Pt was discharged on 12/27/2023 at 3:37 PM. Patient was seen independently by Nurse Practitioner. This document was prepared using [employer] dictation software. Please allow for errors in shipper while rare they do occur. Paul [employer] rendered care for this patient independently, reviewed the findings and plan as documented in the note above. I did not physically speak with or examine the patient on this date. Patient Condition at Discharge: Stable Plan - Discharge Summary Discharge Rx Participant: No New Discharge Prescriptions: New Sulfamethox-Tmp 800-160Mg [Bactrim DS 800-160 mg] 1 tab PO DAILY 4 Days #4 tab Midodrine [ProAmatine] 5 mg PO AC-TID 30 Days #90 tab Continue allopurinoL [Zyloprim] 100 mg PO BID Apixaban [Eliquis] 2.5 mg PO BID 90 Days #180 tab Amiodarone [Cordarone] 200 mg PO BID Famotidine [Pepcid] 20 mg PO BID Benzonatate [Tessalon Perle] 200 mg PO TID PRN PRN Reason: Cough Fluticasone Nasal [place] [Flonase Nasal [place]] 2 spray EA NOSTRIL BID PRN PRN Reason: Allergy Symptoms Rosuvastatin [Crestor] 20 mg PO HS calcitrioL 0.25 mcg PO MO Ondansetron Odt [Zofran ODT] 4 mg PO Q8HR PRN #10 tab PRN Reason: Nausea And Vomiting Cranberry Concentrate-Ascorbic Acid 4,200mg-20mg Capsule 1 cap PO DAILY Discontinued Midodrine [ProAmatine] 5 mg PO TID PRN PRN Reason: BP >110 SYSTOLIC predniSONE See Taper PO DIRECTED Amoxicillin 875 mg PO Q12HR Discharge Medication List allopurinoL [Zyloprim] 100 mg PO BID 05/22/17 [History] Rosuvastatin [Crestor] 20 mg PO HS 09/15/22 [History] calcitrioL 0.25 mcg PO MO 05/24/23 [History] Apixaban [Eliquis] 2.5 mg PO BID 90 Days #180 tab 07/08/23 [Rx] Amiodarone [Cordarone] 200 mg PO BID 07/20/23 [History] Cranberry Concentrate-Ascorbic Acid 4,200mg-20mg Capsule 1 cap PO DAILY 10/07/23 [History] Famotidine [Pepcid] 20 mg PO BID 10/07/23 [History] Ondansetron Odt [Zofran ODT] 4 mg PO Q8HR PRN #10 tab 10/07/23 [Rx] Benzonatate [Tessalon Perle] 200 mg PO TID PRN 12/24/23 [History] Fluticasone Nasal [place] [Flonase Nasal [place]] 2 spray EA NOSTRIL BID PRN 12/24/23 [History] Midodrine [ProAmatine] 5 mg PO AC-TID 30 Days #90 tab 12/27/23 [Rx] Sulfamethox-Tmp 800-160Mg [Bactrim DS 800-160 mg] 1 tab PO DAILY 4 Days #4 tab 12/27/23 [Rx] Follow up Appointment(s)/Referral(s): Cat Dobbs MD [STAFF PHYSICIAN] - 1 Week (The office is closed please call and make follow up appointment.) Keith Riley DO [Primary Care Provider] - 1-2 days Patient Instructions/Handouts: Sulfamethoxazole/Trimethoprim (By mouth), Midodrine (By mouth), Urinary Tract Infection in Women (DC) Activity/Diet/Wound Care/Special Instructions: Activity: As tolerated. Take breaks as needed. Diet: Heart healthy and carb consistent diet. Avoid salts, or foods with hidden salts such as canned or boxed foods and frozen dinners. Extra salt makes your heart work harder and traps the fluid in your body for longer. Special Instructions: Take all of your medications as directed and remember to keep all of your doctor's appointments and follow-up as needed. You were evaluated by physical therapy, recommending home care per case management this was declined at this time. If you change your mind PT/OT can also be arranged by your primary care doctor. Thank you for allowing us to participate in your care, it was truly a pleasure having you for our patient!!! . Discharge Disposition: HOME SELF-CARE
--- NOTE | 2023-12-27 19:26 | P.PN ---
Subjective Patient is seen for follow-up for end-stage renal disease. Tolerating oral intake although complaining of nausea. Tolerating peritoneal dialysis well. Objective - Vital Signs Vital signs: Vital Signs Temp 98.2 F 12/27/23 11:49 Pulse 90 12/27/23 11:49 Resp 16 12/27/23 11:49 BP 146/85 12/27/23 11:49 Pulse Ox 95 12/27/23 11:49 FiO2 Intake & Output 12/27/23 12/27/23 12/28/23 06:59 18:59 06:59 Other: Voiding Method Toilet Toilet # Voids 1 - Exam Patient is awake, comfortable, no acute distress. Examination of the heart S1 and S2 Examination of the lungs bilateral breath sounds are heard Abdomen is soft nontender Examination of lower extremity shows no significant edema EXECUTIVE SERVICES ADMINISTRATOR exam grossly intact - Labs CBC & Chem 7: 12/27/23 05:45 12/27/23 05:45 Labs: Abnormal Lab Results - Last 24 Hours (Table) 12/27/23 12/27/23 Range/Units 05:45 05:45 WBC 13.49 H (4.50-10.00) X 10*3/uL RBC 3.57 L (4.10-5.20) X 10*6/uL Hgb 11.3 L (12.0-15.0) g/dL Hct 33.8 L (37.2-46.3) % RDW 16.8 H (11.5-14.5) % Chloride 95 L (96-109) mmol/L Anion Gap 15.20 H (4.00-12.00) mmol/L BUN 33.2 H (9.0-27.0) mg/dL Creatinine 6.9 H (0.6-1.5) mg/dL Est GFR (CKD-EPI) 6 L (>=60) BUN/Creatinine Ratio 4.81 L (12.00-20.00) Ratio Microbiology - Last 24 Hours (Table) 12/24/23 11:41 Urine Culture - Final Urine,Voided Escherichia coli 12/24/23 17:00 Blood Culture - Preliminary Blood 12/24/23 16:45 Blood Culture - Preliminary Blood 12/25/23 13:15 Gram Stain - Preliminary Dialysate Body Fluid Culture - Preliminary Assessment and Plan Assessment: 1. End-stage renal disease maintained on peritoneal dialysis. 2. UTI on antibiotics. Urine culture positive for gram-negative bacilli, E. coli 3. Hypomagnesemia from poor intake. Replaced. Better. 4. Chronic kidney disease mineral bone disease. Phosphorus level 4.8 dated December 25, 2023. 5. History of diverticulosis. 6. Hypokalemia from PD losses and poor intake. Plan: Consult ID due to significant history of sepsis and renal abscess. Continue current PD exchanges.
== END 2023-12-27 19:08 | disposition home or self-care (01) | DRG 689 ==
LOC: EC 10:39 → 5NMEDONC 16:08
PROVIDERS: ADMIT Internal Medicine; ATTEND Internal Medicine
DX: N39.0 Urinary tract infection, site not specified (principal); N18.6 End stage renal disease; E87.1 Hypo-osmolality and hyponatremia; I12.0 Hypertensive chronic kidney disease with stage 5 chronic kidney disease or end stage renal disease; B96.20 Unspecified Escherichia coli [E. coli] as the cause of diseases classified elsewhere; E83.42 Hypomagnesemia; E78.5 Hyperlipidemia, unspecified; E87.6 Hypokalemia; E87.8 Other disorders of electrolyte and fluid balance, not elsewhere classified; I44.30 Unspecified atrioventricular block; I95.1 Orthostatic hypotension; M10.9 Gout, unspecified; K57.30 Diverticulosis of large intestine without perforation or abscess without bleeding; R74.01 Elevation of levels of liver transaminase levels; I48.0 Paroxysmal atrial fibrillation; N28.1 Cyst of kidney, acquired; K44.9 Diaphragmatic hernia without obstruction or gangrene; E83.9 Disorder of mineral metabolism, unspecified; Z99.2 Dependence on renal dialysis; Z79.01 Long term (current) use of anticoagulants; Z79.899 Other long term (current) drug therapy; Z86.19 Personal history of other infectious and parasitic diseases; Z86.73 Personal history of transient ischemic attack (TIA), and cerebral infarction without residual deficits; Z28.310 Unvaccinated for COVID-19; Z88.1 Allergy status to other antibiotic agents; Z96.653 Presence of artificial knee joint, bilateral; Z88.8 Allergy status to other drugs, medicaments and biological substances; Z96.611 Presence of right artificial shoulder joint; Z87.440 Personal history of urinary (tract) infections
CPT/HCPCS: 36415; 71046; 74176; 80048; 80053; 81001; 82533; 83605; 83735; 84100; 85025; 85027; 87040; 87070; 87077; 87086; 87186; 87205; 87324; 87636; 89050; 93005; 96374; 99285

== ENCOUNTER → 2024-04-04 | Outpatient (CLI) | payer MEDICARE ==
--- NOTE | 2024-04-04 11:51 | XR ---
EXAMINATION TYPE: XR chest 2V DATE OF EXAM: 04/04/2024 11:37 AM CLINICAL INDICATION: Female, 83 years old with history of R059 COUGH; [facility] COMPARISON: Chest radiographs from 12/24/2023 TECHNIQUE: XR chest 2V Frontal view of the chest. FINDINGS: Lungs/Pleura: There is no evidence of pleural effusion, focal consolidation, or pneumothorax. Pulmonary vascularity: Unremarkable. Heart/mediastinum: Cardiomediastinal silhouette is unremarkable. Musculoskeletal: No acute osseous pathology. Other findings: None Lines/Tubes: Left internal jugular central venous catheter with distal tip at the superior vena cava brachiocephal ic vein junction. IMPRESSION: 1. No acute cardiopulmonary disease process. 2. COPD changes.
== END | disposition home or self-care (01) ==
LOC: RADXRYALE 11:21
PROVIDERS: ATTEND Physician Assistant
DX: J44.9 Chronic obstructive pulmonary disease, unspecified (principal)
CPT/HCPCS: 71046

== ENCOUNTER 2024-06-22 05:42 | Day surgery (SDC) | payer MEDICARE ==
[2024-06-21 11:58] VITALS: BMI 21.1
[2024-06-22] MEDS ORDERED: LACTATED RINGERS 1,000 ML IV SCH (05:57)
[2024-06-22] MEDS: LIDOCAINE 1% (10MG/ML) FOR IV START INTRADERMA STA (06:40)
[2024-06-22] MEDS: IV FLUID CONTINUATION 1,000 ML IV ONE (06:40)
[2024-06-22] MEDS: SODIUM CHLORIDE 0.9% 500 ML 500 ML IV ONE (06:40)
[2024-06-22 06:56] VITALS: RESP 16; TEMP 97
[2024-06-22] MEDS ORDERED: fentaNYL (PF) 50 MCG/ML 2 ML AMP IV PRN (07:00)
[2024-06-22] MEDS ORDERED: MIDAZOLAM 2 MG/2 ML VIAL IV PRN (07:00)
[2024-06-22 07:02] LABS: Glucose,Whole Blood 92 mg/dL (70-110)
[2024-06-22] MEDS: ACETAMINOPHEN TAB 500 MG TAB PO PRN (07:03)
[2024-06-22] MEDS: DEXAMETHASONE SOD PHOSPHATE 4 MG/ML 1 ML VIAL IV ONE (07:03)
[2024-06-22] MEDS: ONDANSETRON 4 MG/2 ML VIAL IVP ONE (07:03)
[2024-06-22] MEDS: HEPARIN SODIUM,PORCINE 5,000 UNIT/ML 1 ML VIAL SQ PRN (07:04)
[2024-06-22 07:06] LABS: Basophils % (A) 0 %; Eosinophils # (A) 0.1 k/uL (0-0.7); Eosinophils % (A) 1 %; HCT 30.7 % (34.0-46.0); Hypochromasia Slight; Lymphocytes # (A) 1.3 k/uL (1.0-4.8); Lymphocytes % (A) 16 %; MCH 30.8 pg (25.0-35.0); MCHC 32.7 g/dL (31.0-37.0); MCV 94.3 fL (80.0-100.0); Mean Platelet Volume 6.9; Monocytes # (A) 0.8 k/uL (0-1.0); Monocytes % (A) 9 %; Neutrophils # (A) 5.7 k/uL (1.3-7.7); Neutrophils % (A) 70 %; Platelet Count 309 k/uL (150-450); RBC 3.25 m/uL (3.80-5.40); RDW 15.7 % (11.5-15.5)
--- NOTE | 2024-06-22 07:11 | P.GSHP ---
History of Present Illness H&P Date: 06/22/24 Chief Complaint: Renal failure 83-year-old female known to our service. Patient had dialysis catheter placed 2 years ago. Over time the patient has had some increasing confusion and has not been using the catheter appropriately. For that reason the patient is being asked to switch to hemodialysis. Here today for dialysis catheter removal. Past Medical History Past Medical History: Atrial Fibrillation, CVA/TIA, Hyperlipidemia, H ypertension, Osteoarthritis (OA), Renal Disease Additional Past Medical History / Comment(s): TIA-no residual-yrs ago, UTIs, dizziness, gout, arthiritis,chronic back pain sherman shoulder pain,. now on hemodialysis SA-dialysis cath left chest,pulmonary fibrosis, covid infection May 2024,steroids w/ last 3 months,had bleeding polyp and admitted to [facility] May 2024 w/ unit of pRBCs given History of Any Multi-Drug Resistant Organisms: VRE Date of last positivie culture/infection: 08/16/23 MDRO Source:: Urine Past Surgical History: Section, Hysterectomy, Joint Replacement, Orthopedic Surgery Additional Past Surgical History / Comment(s): 3 C-Sections, hysterectomy with vaginal repair, bilateral total knees, R shoulder acromioplasty, excision distal clavicle rotator cuff repair, bilateral cataract removal with lens implants, L breast bx-benign, varicose vein stripping bilaterally, peritoneal HD cath, sherman knee replacements Past Anesthesia/Blood Transfusion Reactions: No Reported Reaction Additional Past Anesthesia/Blood Transfusion Reaction / Comment(s): no complications with prior blood transfusion Smoking Status: Never smoker - Past Family History Brother(s) Family Medical History: Renal Disease Father Family Medical History: Unable to Obtain Mother Family Medical History: Coronary Artery Disease (CAD), CVA/TIA Additional Family Medical History / Comment(s): Mother at 92 yrs of age. She had TIA's. Medications and Allergies Home Medications Medication Instructions Recorded Confirmed Type Rosuvastatin [Crestor] 20 mg PO HS 09/15/22 06/21/24 History Apixaban [Eliquis] 2.5 mg PO BID 90 Days #180 tab 07/08/23 06/21/24 Rx Amiodarone [Cordarone] 100 mg PO BID 07/20/23 06/21/24 History Benzonatate [Tessalon Perle] 200 mg PO TID PRN 12/24/23 06/21/24 History Fluticasone Nasal [place] [Flonase 2 spray EA NOSTRIL BID PRN 12/24/23 06/21/24 History Nasal [place]] Ascorbic Acid [Vitamin C] 500 mg PO DAILY 06/21/24 06/21/24 History Cholecalciferol [Vitamin D3 (25 50 mcg PO DAILY 06/21/24 06/21/24 History Mcg = 1000 Iu)] Codeine Phosphate/Guaifenesin 10 ml PO Q8H PRN 06/21/24 06/21/24 History [Codeine Phosphate/Guaifenesin 10-100 mg/5 ml] Enulose 30 ml PO DAILY PRN 06/21/24 06/21/24 History Fluticasone Propionate 1 puff INHALATION BID 06/21/24 06/21/24 History [Fluticasone Propionate Hfa 220 MCG (Inhaler)] Midodrine [ProAmatine] 5 mg PO AC-TID PRN 06/21/24 06/21/24 History Pantoprazole [Protonix] 40 mg PO QAM 06/21/24 06/21/24 History Sevelamer [Renvela] 800 mg PO BID 06/21/24 06/21/24 History Sulfamethox-Tmp 800-160Mg [Bactrim 1 tab PO MOWEFR 06/21/24 06/21/24 History DS 800-160 mg] Allergies Allergy/AdvReac Type Severity Reaction Status Date / Time losartan [Losartan] Allergy Unknown Verified 06/22/24 06:22 tramadol Allergy Unknown Verified 06/22/24 06:22 LUANA Inhibitors AdvReac Cough Verified 06/22/24 06:22 levofloxacin [From Levaquin] AdvReac Hallucinati Verified 06/22/24 06:22 ons Surgical - Exam Vital Signs Temp Pulse Resp BP Pulse Ox 97.0 F L 81 16 143/78 96 06/22/24 06:40 06/22/24 06:40 06/22/24 06:40 06/22/24 06:40 06/22/24 06:40 Physical exam: General: Well-developed, well-nourished HEENT: Normocephalic, sclerae nonicteric Abdomen: Nontender, nondistended, catheter in place Extremities: No edema Neuro: Alert and oriented Assessment and Plan (1) ESRD on dialysis Narrative/Plan: Will proceed with peritoneal dialysis catheter removal at this time. Current Visit: No Status: Acute Code(s): N18.6 - END STAGE RENAL DISEASE; Z99.2 - DEPENDENCE ON RENAL DIALYSIS SNOMED Code(s): 849097260
[2024-06-22 07:16] LABS: African American GFR (CKD) 17 (>60 ml/min/1.73 sqM); Anion Gap 2 mmol/L; Blood Urea Nitrogen 8 mg/dL (7-17); Calcium 9.3 mg/dL (8.4-10.2); Carbon Dioxide 33 mmol/L (22-30); Chloride 100 mmol/L (98-107); Glucose 83 mg/dL (74-99); Non-African American GFR(CKD) 15 (>60 ml/min/1.73 sqM); Potassium 4.7 mmol/L (3.5-5.1); Sodium 135 mmol/L (137-145)
[2024-06-22] MEDS: BUPIVACAINE (PF) 0.25% 30 ML VIAL SQ ONE ×2 (07:21→07:46)
[2024-06-22] MEDS ORDERED: MIDAZOLAM 2 MG/2 ML VIAL ONE (07:24)
[2024-06-22] MEDS ORDERED: fentaNYL (PF) 50 MCG/ML 2 ML AMP ONE (07:24)
[2024-06-22] MEDS ORDERED: KETAMINE HCL IN 0.9 % NACL 50 MG/5 ML SYRINGE ONE (07:24)
[2024-06-22] MEDS ORDERED: PROPOFOL 10 MG/ML 20 ML VIAL IV ONE (07:24)
[2024-06-22] MEDS ORDERED: NALOXONE 0.4 MG/ML 1 ML VIAL IV PRN (08:04)
[2024-06-22] MEDS ORDERED: ACETAMINOPHEN TAB 325 MG TAB PO PRN (08:04)
--- NOTE | 2024-06-22 08:05 | P.OP ---
Date of Procedure: 06/22/24 Procedure(s) Performed: PREOPERATIVE DIAGNOSIS: Renal failure POSTOPERATIVE DIAGNOSIS: Same PROCEDURE: PD cath removal SURGEON: Shilpi EBL: 2 mL ANESTHESIA: Sedation and local COMPLICATIONS: None OPERATIVE PROCEDURE: Patient was placed in the supine position. The abdomen was prepped and draped in usual sterile fashion. The previous paramedian incision was re-incised after localizing the skin. The subcutaneous tissues were divided using electrocautery. Blunt dissection around the cuff that was present at the fascia and peritoneum took place. The cuff was fully mobilized. The catheter was removed from the perineal cavity. The outer cuff was dissected from the saphenous fascia using electrocautery. The catheter was cut on the other side of that cuff and the catheter was removed. The fascial defect was closed using a single [id number] 0 Vicryl stitch. The subcutaneous tissues were closed using 3-0 Vicryl sutures and the skin using 4-0 Monocryl sutures. Skin glue and sterile dressings were applied. DISPOSITION: Stable to recovery room
[2024-06-22 08:35] VITALS: BP 127/83; PULSE 62
== END 2024-06-22 08:40 | disposition home or self-care (01) ==
LOC: OR 05:42
PROVIDERS: ATTEND Surgery
DX: Z49.02 Encounter for fitting and adjustment of peritoneal dialysis catheter (principal); I12.0 Hypertensive chronic kidney disease with stage 5 chronic kidney disease or end stage renal disease; N18.6 End stage renal disease; I48.91 Unspecified atrial fibrillation; E78.5 Hyperlipidemia, unspecified; M19.90 Unspecified osteoarthritis, unspecified site; M10.9 Gout, unspecified; M54.9 Dorsalgia, unspecified; G89.29 Other chronic pain; J84.10 Pulmonary fibrosis, unspecified; Z86.73 Personal history of transient ischemic attack (TIA), and cerebral infarction without residual deficits; Z87.440 Personal history of urinary (tract) infections; Z98.890 Other specified postprocedural states; Z96.653 Presence of artificial knee joint, bilateral; Z79.01 Long term (current) use of anticoagulants; Z79.899 Other long term (current) drug therapy; Z98.41 Cataract extraction status, right eye; Z98.42 Cataract extraction status, left eye; Z96.1 Presence of intraocular lens; Z90.710 Acquired absence of both cervix and uterus; Z88.8 Allergy status to other drugs, medicaments and biological substances; Z88.6 Allergy status to analgesic agent
CPT/HCPCS: 80048; 85025; 49422; J2250; J1644; J1100; J0690; J2405; J3010; J2704; J0665

== ENCOUNTER → 2024-08-08 | Outpatient (CLI) | payer MEDICARE ==
--- NOTE | 2024-08-08 12:52 | XR ---
EXAMINATION TYPE: XR chest 2V DATE OF EXAM: 08/08/2024 12:45 PM COMPARISON: Chest x-ray April 04, 2024 CLINICAL INDICATION: Female, 83 years old with history of J44.9 COPD, TECHNIQUE: Frontal and lateral views of the chest are obtained. FINDINGS: Stable large bore left internal jugular dialysis catheter. There is new small left pleural effusion. Right lung remains clear. The cardiac silhouette size is stable and within normal limits w ith atherosclerotic thoracic aorta redemonstrated. The osseous structures are intact. IMPRESSION: There is new small left pleural effusion. [facility], , 08/08/2024 12:50 PM
== END | disposition home or self-care (01) ==
LOC: RADXRMAIN 12:25
PROVIDERS: ATTEND Internal Medicine Sleep Medicine
DX: J44.9 Chronic obstructive pulmonary disease, unspecified (principal); J90 Pleural effusion, not elsewhere classified
CPT/HCPCS: 71046

== ENCOUNTER 2024-09-17 13:44 | Emergency (ER) | payer MEDICARE ==
[2024-09-17] MEDS: HYDROcodone/APAP 5-325MG 1 EACH TAB PO STA (16:15)
[2024-09-17] MEDS: LIDOCAINE 4% PATCH TOPICAL ONE (16:16)
--- NOTE | 2024-09-17 16:42 | XR ---
EXAMINATION TYPE: XR thoracic spine complete DATE OF EXAM: 09/17/2024 4:32 PM COMPARISON: None. CLINICAL INDICATION: Female, 83 years old with history of pain, pain TECHNIQUE: 3 view(s) obtained. FINDINGS: Thoracic vertebral levels have normal pedicles. There is slight kyphosis present within the mid thora cic spine. Mild diffuse loss of disc height is through the mid thoracic spine alignment is otherwise preserved. Vertebral body heights appear preserved IMPRESSION: 1. No acute abnormality thoracic spine. 2. Mild degenerative disc changes and mild kyphosis mid thoracic spine [facility], , 09/17/2024 4:39 PM
--- NOTE | 2024-09-17 17:37 | ED ---
Back Pain HPI - General Chief Complaint: Back Pain/Injury Stated Complaint: central back pain Time Seen by Provider: 09/17/24 14:34 Source: patient, family Limitations: no limitations - History of Present Illness Initial Comments: 83-year-old female presenting with chief complaint of back pain. Patient is experiencing left-sided upper back pain. This started after she was pouring herself a glass of water this morning with a gallon jug. States that normally her does it for her but she did not herself today. No other fall or injury. No numbness or tingling. No chest pain or difficulty breathing. No abdominal pain. No fever, cough, congestion, sore throat, nausea, vomiting. - Related Data Home Medications Medication Instructions Recorded Confirmed Rosuvastatin [Crestor] 20 mg PO HS 09/15/22 06/21/24 Amiodarone [Cordarone] 100 mg PO BID 07/20/23 06/21/24 Benzonatate [Tessalon Perle] 200 mg PO TID PRN 12/24/23 06/21/24 Fluticasone Nasal [place] [Flonase 2 spray EA NOSTRIL BID PRN 12/24/23 06/21/24 Nasal [place]] Ascorbic Acid [Vitamin C] 500 mg PO DAILY 06/21/24 06/21/24 Cholecalciferol [Vitamin D3 (25 50 mcg PO DAILY 06/21/24 06/21/24 Mcg = 1000 Iu)] Codeine Phosphate/Guaifenesin 10 ml PO Q8H PRN 06/21/24 06/21/24 [Codeine Phosphate/Guaifenesin 10-100 mg/5 ml] Enulose 30 ml PO DAILY PRN 06/21/24 06/21/24 Fluticasone Propionate 1 puff INHALATION BID 06/21/24 06/21/24 [Fluticasone Propionate Hfa 220 MCG (Inhaler)] Midodrine [ProAmatine] 5 mg PO AC-TID PRN 06/21/24 06/21/24 Pantoprazole [Protonix] 40 mg PO QAM 06/21/24 06/21/24 Sevelamer [Renvela] 800 mg PO BID 06/21/24 06/21/24 Sulfamethox-Tmp 800-160Mg [Bactrim 1 tab PO MOWEFR 06/21/24 06/21/24 DS 800-160 mg] Previous Rx's Medication Instructions Recorded Apixaban [Eliquis] 2.5 mg PO BID 90 Days #180 tab 07/08/23 Lactulose 10 - 20 gm PO DAILY PRN #473 ml 09/15/24 Lidocaine 5% Patch [Lidoderm 5% 1 patch TOPICAL DAILY PRN #30 patch 09/17/24 Patch] Allergies Allergy/AdvReac Type Severity Reaction Status Date / Time losartan [Losartan] Allergy Unknown Verified 09/17/24 14:31 tramadol Allergy Unknown Verified 09/17/24 14:31 LUANA Inhibitors AdvReac Cough Verified 09/17/24 14:31 levofloxacin [From Levaquin] AdvReac Hallucinati Verified 09/17/24 14:31 ons Review of Systems ROS Statement: Those systems with pertinent positive or pertinent negative responses have been documented in the HPI. ROS Other: All systems not noted in ROS Statement are negative. Past Medical History Past Medical History: Atrial Fibrillation, CVA/TIA, Hyperlipidemia, Hypertension, Osteoarthritis (OA), Renal Disease Additional Past Medical History / Comment(s): TIA-no residual-yrs ago, UTIs, dizziness, gout, arthiritis,chronic back pain sherman shoulder pain,. now on hemodialysis [facility]-dialysis cath left chest,pulmonary fibrosis, covid infection May 2024,steroids w/ last 3 months,had bleeding polyp and admitted to [facility] May 2024 w/ unit of pRBCs given History of Any Multi-Drug Resistant Organisms: VRE Date of last positivie culture/infection: 08/16/23 MDRO Source:: Urine Past Surgical History: Section, Hysterectomy, Joint Replacement, Orthopedic Surgery Additional Past Surgical History / Comment(s): 3 C-Sections, hysterectomy with vaginal repair, bilateral total knees, R shoulder acromioplasty, excision distal clavicle rotator cuff repair, bilateral cataract removal with lens implants, L breast bx-benign, varicose vein stripping bilaterally, peritoneal HD cath, sherman knee replacements Past Anesthesia/Blood Transfusion Reactions: No Reported Reaction Additional Past Anesthesia/Blood Transfusion Reaction / Comment(s): no complications with prior blood transfusion Past Psychological History: No Psychological Hx Reported Smoking Status: Never smoker Past Alcohol Use History: None Reported Past Drug Use History: None Reported - Past Family History Brother(s) Family Medical History: Renal Disease Father Family Medical History: Unable to Obtain Mother Family Medical History: Coronary Artery Disease (CAD), CVA/TIA Additional Family Medical History / Comment(s): Mother at 92 yrs of age. She had TIA's. General Exam Limitations: no limitations General appearance: alert, in no apparent distress Head exam: Present: atraumatic, normocephalic, normal inspection Eye exam: Present: normal appearance, EOMI Neck exam: Present: normal inspection. Absent: meningismus Respiratory exam: Present: normal lung sounds bilaterally. Absent: respiratory distress, wheezes, rales, rhonchi, stridor Cardiovascular Exam: Present: regular rate, normal rhythm, normal heart sounds. Absent: systolic murmur, diastolic murmur, rubs, gallop, clicks Extremities exam: Present: normal inspection Back exam: Present: normal inspection, tenderness (Left upper back). Absent: vertebral tenderness Neurological exam: Present: alert, oriented X3 Expanded Motor strength exam: RUE: 5, LUE: 5 Psychiatric exam: Present: normal affect, normal mood Skin exam: Present: warm, dry Course Vital Signs 09/17/24 09/17/24 09/17/24 14:28 16:24 18:02 Temperature 97.3 F L 97.6 F 98.1 F Pulse Rate 63 66 68 Respiratory 18 18 20 Rate Blood Pressure 149/94 138/82 189/90 O2 Sat by Pulse 97 97 95 Oximetry Medical Decision Making - Medical Decision Making Was pt. sent in by a medical professional or institution (, PA, ROTARY RIG ENGINE OPERATOR, urgent care, hospital, or snf...) When possible be specific @ -No Did you speak to anyone other than the patient for history (EMS, parent, family, police, friend...)? What history was obtained from this source @ -No Did you review nursing and triage notes (agree or disagree)? Why? @ -I reviewed and agree with nursing and triage notes Were old charts reviewed (outside hosp., previous admission, EMS record, old EKG, old radiological studies, urgent care reports/EKG's, snf records)? Report findings @ -No old charts were reviewed Differential Diagnosis (chest pain, altered mental status, abdominal pain women, abdominal pain men, vaginal bleeding, weakness, fever, dyspnea, syncope, headache, dizziness, GI bleed, back pain, seizure, CVA, palpatations, mental health, musculoskeletal)? @ - MDM Differential Back Pain: Strain, zoster, cauda equina syndrome, epidural abscess, vertebral osteomyelitis, discitis, fracture, subluxation, disc herniation, DJD, spinal stenosis, dissection, AAA, pancreatitis, peptic ulcer disease, pyelonephritis, kidney stone this is not meant to be an all-inclusive list. EKG interpreted by me (3pts min.). @ -As above X-rays interpreted by me (1pt min.). @ -X-ray shows no acute abnormality of the thoracic spine. Mild degenerative disc changes and mild kyphosis. Thoracic spine CT interpreted by me (1pt min.). @ -None done U/S interpreted by me (1pt. min.). @ -None done What testing was considered but not performed or refused? (CT, X-rays, U/S, labs)? Why? @ -None What meds were considered but not given or refused? Why? @ -None Did you discuss the management of the patient with other professionals (pro fessionals i.e. , PA, ROTARY RIG ENGINE OPERATOR, lab, RT, psych nurse, perinatal social worker, igniter assembler, teacher, uniform patrol police officer, community case manager)? Give summary @ -No Was smoking cessation discussed for >3mins.? @ -No Was critical care preformed (if so, how long)? @ -No Were there social determinants of health that impacted care today? How? (Homelessness, low income, unemployed, alcoholism, drug addiction, transportation, low edu. Level, literacy, decrease access to med. care, snf, rehab)? @ -No Was there de-escalation of care discussed even if they declined (Discuss DNR or withdrawal of care, Hospice)? DNR status @ -No What co-morbidities impacted this encounter? (DM, HTN, Smoking, COPD, CAD, Cancer, CVA, ARF, Chemo, Hep., AIDS, mental health diagnosis, sleep apnea, morbid obesity)? @ -None Was patient admitted / discharged? Hospital course, mention meds given and route, prescriptions, significant lab abnormalities, going to OR and other pertinent info. @ -83-year-old female presenting with chief complaint of left upper back pain after lifting a gallon jug of water today. No radicular symptoms. No chest pain difficulty breathing or abdominal pain. No URI-like symptoms or fever. Heart and lungs are clear to auscultation and pain is reproducible on exam. No midline tenderness. X-ray is negative for acute abnormality. Patient reports improvement in her pain after analgesia. She is educated on today's findings and supportive management at home. For acute abnormality. Patient reports improvement in her pain after analgesia. She is educated on today's findings and supportive management at home. Follow-up with PCP. Report back to ER with any new or worsening symptoms. Discussed return parameters and answered all questions. Patient conveyed verbal understanding and agreed to the plan. I discussed this case in detail with my attending Dr. Cao Undiagnosed new problem with uncertain prognosis? @ -No Drug Therapy requiring intensive monitoring for toxicity (Heparin, Nitro, Insulin, Cardizem)? @ -No Were any procedures done? @ -No Diagnosis/symptom? @ -Thoracic back strain Acute, or Chronic, or Acute on Chronic? @ -Acute Uncomplicated (without systemic symptoms) or Complicated (systemic symptoms)? @ -Uncomplicated Side effects of treatment? @ -No Exacerbation, Progression, or Severe Exacerbation? @ -No Poses a threat to life or bodily function? How? (Chest pain, USA, OR, pneumonia, PE, COPD, DKA, ARF, appy, cholecystitis, CVA, Diverticulitis, Homicidal, Suicidal, t Follow-up with PCP. Report back to ER with any new or worsening symptoms. Discussed return parameters and answered all questions. Patient conveyed verbal understanding and agreed to the plan. I discussed this case in detail with my attending to staff... and all critical care pts) @ -Unlikely Disposition Clinical Impression: Strain of thoracic back region Disposition: HOME SELF-CARE Condition: Good Instructions (If sedation given, give patient instructions): Thoracic Back Strain (ED) Additional Instructions: Follow-up with PCP. Report back to ER with any new or worsening symptoms. Prescriptions: Lidocaine 5% Patch [Lidoderm 5% Patch] 1 patch TOPICAL DAILY PRN #30 patch PRN Reason: Pain Is patient prescribed a controlled substance at d/c from ED?: No Referrals: Keith Riley DO [Primary Care Provider] - 1-2 days Time of Disposition: 17:37
[2024-09-17] MEDS: ACET/COD 300 MG/30 MG STARTER PACK 6 TAB BTL PO STA (17:52)
[2024-09-17 18:03] VITALS: BP 189/90; PULSE 68; RESP 20; TEMP 98.1
== END 2024-09-17 18:03 | disposition home or self-care (01) ==
LOC: EC 13:44
DX: S29.012A Strain of muscle and tendon of back wall of thorax, initial encounter (principal); Z88.1 Allergy status to other antibiotic agents; Z88.5 Allergy status to narcotic agent; Z88.8 Allergy status to other drugs, medicaments and biological substances; W20.8XXA Other cause of strike by thrown, projected or falling object, initial encounter
CPT/HCPCS: 72072; 99283

== ENCOUNTER → 2024-10-01 | Outpatient (CLI) | payer MEDICARE | END | disposition home or self-care (01) | LOC: LABWHC1 09:39 | PROVIDERS: ATTEND Internal Medicine Nephrology | DX: E83.52 Hypercalcemia (principal) | CPT/HCPCS: 36415; 82164; 86334 ==

== ENCOUNTER 2024-10-24 12:12 | Day surgery (SDC) | payer MEDICARE ==
[2024-10-22 10:50] VITALS: BMI 21.9
[~2024-10-24 12:12] MED LIST: LACTATED RINGERS 1,000 ML IV SCH
[2024-10-24] MEDS: IV FLUID CONTINUATION 1,000 ML IV ONE (12:52)
[2024-10-24 13:14] VITALS: RESP 16; TEMP 97.3
[2024-10-24] MEDS: ONDANSETRON 4 MG/2 ML VIAL IVP STA (14:10)
[2024-10-24] MEDS: MIDAZOLAM 2 MG/2 ML VIAL IVP ONE (14:14)
--- NOTE | 2024-10-24 14:36 | P.HPIHPCON ---
History of Present Illness H&P Date: 10/24/24 Patient is a previously in the office. She has end-stage renal disease and gets to this via a tunneled chest wall catheter. Initially she was uncertain if she wanted to forward with the access placed however has for graft. Risks and benefits discussed previously including but not limited to bleeding, infection, injury to the vessel and need for further surgical interventions. This Consent for Procedure: I have explained the operation/procedure to the patient, including the risks, benefits, side effects, alternative therapies (including not receiving the proposed treatment or service), the likelihood of the patient achieving his/her goals, and potential recuperation problems for the procedure/sedation/analgesia, as well as any blood products, if indicated. I also explained to the patient the risks, benefits and side effects of the alternatives, as well as the risks related to not receiving the proposed procedure, care, treatment, or services. Past Medical History Past Medical History: Atrial Fibrillation, CVA/TIA, Hyperlipidemia, Hypertension, Osteoarthritis (OA), Renal Disease Additional Past Medical History / Comment(s): Hx TIA-no residual-yrs ago, UTIs, dizziness, gout, chronic back and bilateral shoulder pain, hemodialysis [facility]- dialysis cath left chest, pulmonary fibrosis, hx Covid May 2024, varicose veins, constipation. History of Any Multi-Drug Resistant Organisms: VRE Date of last positivie culture/infection: 08/16/23 MDRO Source:: Urine Past Surgical History: Section, Hysterectomy, Joint Replacement, Orthopedic Surgery Additional Past Surgical History / Comment(s): Section X3, hysterectomy with vaginal repair, bilateral total knee replacements, right shoulder acromioplasty, excision distal clavicle rotator cuff repair, bilateral cataract removal with lens implants, left breast biopsy-benign, varicose vein stripping bilaterally, peritoneal hemodilyis catheter placement. Past Anesthesia/Blood Transfusion Reactions: No Reported Reaction Additional Past Anesthesia/Blood Transfusion Reaction / Comment(s): No complications with prior blood transfusion. Smoking Status: Never smoker - Past Family History Brother(s) Family Medical History: Renal Disease Father Family Medical History: Unable to Obtain Mother Family Medical History: Coronary Artery Disease (CAD), CVA/TIA Additional Family Medical History / Comment(s): Mother at 92 yrs of age. She had TIA's. Medications and Allergies Home Medications Medication Instructions Recorded Confirmed Type Rosuvastatin [Crestor] 20 mg PO HS 09/15/22 10/24/24 History Apixaban [Eliquis] 2.5 mg PO BID 90 Days #180 tab 07/08/23 10/24/24 Rx Amiodarone [Cordarone] 100 mg PO BID 07/20/23 10/24/24 History Benzonatate [Tessalon Perle] 200 mg PO TID PRN 12/24/23 10/24/24 History Fluticasone Nasal [place] [Flonase 2 spray EA NOSTRIL BID PRN 12/24/23 10/24/24 History Nasal [place]] Ascorbic Acid [Vitamin C] 500 mg PO DAILY 06/21/24 10/24/24 History Cholecalciferol [Vitamin D3 (25 50 mcg PO DAILY 06/21/24 10/24/24 History Mcg = 1000 Iu)] Codeine Phosphate/Guaifenesin 10 ml PO Q8H PRN 06/21/24 10/24/24 History [Codeine Phosphate/Guaifenesin 10-100 mg/5 ml] Enulose 30 ml PO DAILY PRN 06/21/24 10/24/24 History Fluticasone Propionate 1 puff INHALATION BID 06/21/24 10/24/24 History [Fluticasone Propionate Hfa 220 MCG (Inhaler)] Midodrine [ProAmatine] 5 mg PO AC-TID PRN 06/21/24 10/24/24 History Pantoprazole [Protonix] 40 mg PO QAM 06/21/24 10/24/24 History Sevelamer [Renvela] 800 mg PO BID 06/21/24 10/24/24 History Sulfamethox-Tmp 800-160Mg [Bactrim 1 tab PO MOWEFR 06/21/24 10/24/24 History DS 800-160 mg] Lactulose 10 - 20 gm PO DAILY PRN #473 ml 09/15/24 10/24/24 Rx Allergies Allergy/AdvReac Type Severity Reaction Status Date / Time losartan [Losartan] Allergy Unknown Verified 10/24/24 13:01 tramadol Allergy Unknown Verified 10/24/24 13:01 LUANA Inhibitors AdvReac Cough Verified 10/24/24 13:01 levofloxacin [From Levaquin] AdvReac Hallucinati Verified 10/24/24 13:01 ons Surgical - Exam Vital Signs Temp Pulse Resp BP Pulse Ox 97.3 F L 89 16 188/103 96 10/24/24 13:13 10/24/24 13:13 10/24/24 13:13 10/24/24 13:13 10/24/24 13:13 General pleasant cooperative female in no acute distress mildly confused but al ert and oriented. Heart appears regular. No respiratory distress. Left upper extremity warm and dry Results - Labs 10/24/24 13:11 Diabetes panel 10/24/24 Range/Units 13:11 Potassium 4.0 (3.5-5.1) mmol/L Pituitary panel 10/24/24 Range/Units 13:11 Potassium 4.0 (3.5-5.1) mmol/L Adrenal panel 10/24/24 Range/Units 13:11 Potassium 4.0 (3.5-5.1) mmol/L Assessment and Plan Assessment: End-stage renal disease on dialysis Plan: Plan for left upper extremity loop forearm graft possible brachial axillary graft. Risks and benefits previously discussed. Patient seemingly understands and would like to proceed
[2024-10-24] MEDS ORDERED: ROPIVACAINE 5 MG/ML 30 ML VIAL ONE (14:45)
[2024-10-24] MEDS ORDERED: LIDOCAINE 1% INJ 10MG/ML (20 ML MDV) ONE (14:45)
[2024-10-24] MEDS ORDERED: PHENYLEPHRINE 10 MG/ML VIAL ONE (14:45)
[2024-10-24] MEDS ORDERED: GLYCOPYRROLATE 0.2 MG/ML 2 ML VIAL ONE (14:45)
[2024-10-24] MEDS ORDERED: PROPOFOL 10 MG/ML 20 ML VIAL IV ONE (14:45)
[2024-10-24] MEDS ORDERED: DEXAMETHASONE SOD PHOSPHATE 4 MG/ML 1 ML VIAL ONE (14:45)
[2024-10-24] MEDS: BUPIVACAINE (PF) 0.5% 30 ML VIAL SQ ONE ×2 (14:46→15:09)
[2024-10-24] MEDS: HEPARIN SODIUM,PORCINE (1 ML) 2,000 UNIT in SODIUM CHLORIDE 0.9% 500 ML 500 ML IRRIGATION ONE (14:50)
[2024-10-24] MEDS: ceFAZolin 2 GM in SODIUM CHLORIDE 0.9% 500 ML 500 ML IRRIGATION ONE (14:50)
--- NOTE | 2024-10-24 16:20 | P.OP ---
Date of Procedure: 10/24/24 Description of Procedure: Preoperative diagnosis: End-stage renal disease on dialysis Postoperative diagnosis: Same Procedure: Left upper extremity loop forearm graft Surgeon: Tanja Clement D.O. Anesthesia: Regional block with sedation EBL: 5 mL IV fluids: See operative records Urine output: Not measured Drains: None Complications: None immediately apparent Condition: Stable to PACU Operative indication and findings: Patient is an 84-year-old female with a small veins was found to have marginal sizing and potential be a candidate for a loop forearm graft. Risks and benefits were discussed. She seemed understood and was willing to proceed. Procedure in detail: The patient was taken to the operative suite and placed in supine position. The upper extremity is prepped and draped in usual sterile fashion. A preprocedure timeout was performed, all parties were in agreement. A transverse incision was made just distal to the antecubital fossa and carried down to the level of the brachial artery. It was dissected free circumferentially and proximal and distal Vesseloops were placed. Attention was then turned towards the venous outflow. The most appropriate sized appearing vein was the median cubital with its branches therefore it was dissected free and encircled proximally and distally. The 4 x 7 propatent graft was then tunneled through a counter incision in the forearm and a subcutaneous tissues. The patient was then heparinized. Flow was occluded through the artery. An arteriotomy was performed and anastomosis to the graft was performed with 6-0 Prolene. The graft was then flushed and the anastomosis was tied. Flow was resumed through the artery. Attention was then turned towards the venous anastomosis. Flow was occluded through the vein and a venotomy was performed. Anastomosis created with 6-0 Prolene. Prior to completion of the anastomosis the graft was flushed as well as the veins themselves. Fow was reinstituted. There remained a palpable pulse proximal and distal to the arterial anastomosis as well as a palpable pulse in the wrist. The incision sites were copiously irrigated the subcutaneous tissues were approximately with 3-0 Vicryl in interrupted fashion and the skin was reapproximated with running 4-0 Monocryl. Skin glue was placed. The patient was allowed awaken from anesthesia and transferred to PACU in stable condition having tolerated the procedure well. Plan - Discharge Summary Discharge Rx Participant: No New Discharge Prescriptions: No Action Apixaban [Eliquis] 2.5 mg PO BID 90 Days #180 tab Amiodarone [Cordarone] 100 mg PO BID Benzonatate [Tessalon Perle] 200 mg PO TID PRN PRN Reason: Cough Fluticasone Nasal [place] [Flonase Nasal [place]] 2 spray EA NOSTRIL BID PRN PRN Reason: Allergy Symptoms Midodrine [ProAmatine] 5 mg PO AC-TID PRN PRN Reason: low b/p Sevelamer [Renvela] 800 mg PO BID Cholecalciferol [Vitamin D3 (25 Mcg = 1000 Iu)] 50 mcg PO DAILY Ascorbic Acid [Vitamin C] 500 mg PO DAILY Rosuvastatin [Crestor] 20 mg PO HS Fluticasone Propionate [Fluticasone Propionate Hfa 220 MCG (Inhaler)] 1 puff INHALATION BID Pantoprazole [Protonix] 40 mg PO QAM Sulfamethox-Tmp 800-160Mg [Bactrim DS 800-160 mg] 1 tab PO MOWEFR Enulose 30 ml PO DAILY PRN PRN Reason: Constipation Codeine Phosphate/Guaifenesin [Codeine Phosphate/Guaifenesin 10-100 mg/5 ml] 10 ml PO Q8H PRN PRN Reason: Cough Lactulose 10 - 20 gm PO DAILY PRN #473 ml PRN Reason: Constipation Discharge Medication List Rosuvastatin [Crestor] 20 mg PO HS 09/15/22 [History] Apixaban [Eliquis] 2.5 mg PO BID 90 Days #180 tab 07/08/23 [Rx] Amiodarone [Cordarone] 100 mg PO BID 07/20/23 [History] Benzonatate [Tessalon Perle] 200 mg PO TID PRN 12/24/23 [History] Fluticasone Nasal [place] [Flonase Nasal [place]] 2 spray EA NOSTRIL BID PRN 12/24/23 [History] Ascorbic Acid [Vitamin C] 500 mg PO DAILY 06/21/24 [History] Cholecalciferol [Vitamin D3 (25 Mcg = 1000 Iu)] 50 mcg PO DAILY 06/21/24 [Histor y] Codeine Phosphate/Guaifenesin [Codeine Phosphate/Guaifenesin 10-100 mg/5 ml] 10 ml PO Q8H PRN 06/21/24 [History] Enulose 30 ml PO DAILY PRN 06/21/24 [History] Fluticasone Propionate [Fluticasone Propionate Hfa 220 MCG (Inhaler)] 1 puff INHALATION BID 06/21/24 [History] Midodrine [ProAmatine] 5 mg PO AC-TID PRN 06/21/24 [History] Pantoprazole [Protonix] 40 mg PO QAM 06/21/24 [History] Sevelamer [Renvela] 800 mg PO BID 06/21/24 [History] Sulfamethox-Tmp 800-160Mg [Bactrim DS 800-160 mg] 1 tab PO MOWEFR 06/21/24 [History] Lactulose 10 - 20 gm PO DAILY PRN #473 ml 09/15/24 [Rx] Activity/Diet/Wound Care/Special Instructions: May resume medications. Resume anticoagulation tomorrow. Resume regular activity as tolerated. No heavy lifting. May shower/bathe as previous starting tomorrow Discharge Disposition: HOME SELF-CARE
[2024-10-24] MEDS: IV FLUID CONTINUATION 150 ML IV ONE (16:21)
[2024-10-24] MEDS: LABETALOL SYRINGE 5 MG/ML (4 ML SYR) IVP STA (16:45)
[2024-10-24 16:53] VITALS: BP 172/95; PULSE 67
--- NOTE | 2024-10-24 18:45 | P.ANPRN ---
Procedure Note - Anesthesia - Nerve Block Performed Left Infraclavicular Single Time Out Performed: Yes Date of Procedure: 10/24/24 Location of Patient: PreOp Indication: Acute Post-Operative Pain, Dx/Pain Location (Left arm), Requested by Surgeon Specifically requested for management of pain by DrThony: Tanja Lloyd Sedation Type: Sedate with meaningful contact maintained Position: Supine Catheter: None Needle Types: Pajunk Needle Gauge: 21 Ultrasound used to visualize needle placement: Yes Ultrasound used to observe medication spread: Yes Injectate: 0.5% Ropivacaine (see comment for volume) (30 mL +4 mg of Decadron) Blood Aspirated: No Pain Paresthesia on Injection Noted: No Resistance on Injection: Normal Image Stored and Saved: Yes Events: Other (see comment) (10 mL of 1% lidocaine infiltrated for T2 block)
== END 2024-10-24 16:58 | disposition home or self-care (01) ==
LOC: OR 12:12
PROVIDERS: ATTEND Surgery
DX: I12.0 Hypertensive chronic kidney disease with stage 5 chronic kidney disease or end stage renal disease (principal); N18.6 End stage renal disease; G89.18 Other acute postprocedural pain; E78.5 Hyperlipidemia, unspecified; I48.91 Unspecified atrial fibrillation; M19.90 Unspecified osteoarthritis, unspecified site; Z79.01 Long term (current) use of anticoagulants; Z86.73 Personal history of transient ischemic attack (TIA), and cerebral infarction without residual deficits; Z88.1 Allergy status to other antibiotic agents; Z88.5 Allergy status to narcotic agent; Z90.710 Acquired absence of both cervix and uterus; Z99.2 Dependence on renal dialysis; Z98.890 Other specified postprocedural states; Z79.899 Other long term (current) drug therapy; Z96.653 Presence of artificial knee joint, bilateral; Z86.16 Personal history of COVID-19; Z88.8 Allergy status to other drugs, medicaments and biological substances
CPT/HCPCS: 64415; 84132; 36830; L8670; J2250; J1644; J1100; J0690; J2405; J2003; J2795; J2704; J2371; J0665; J1920; J1596

== ENCOUNTER 2024-11-19 12:18 | Emergency (ER) | payer MEDICARE ==
[2024-11-19] MEDS ORDERED: RX INFO: IV CONTRAST WAS GIVEN 1 EACH MISC MISCELLANE PRN (13:16)
--- NOTE | 2024-11-19 13:47 | P.GSCN ---
History of Present Illness Consult date: 11/19/24 Reason for Consult: Left upper extremity swelling Requesting physician: Keith Nobles History of present illness: This a pleasant 84-year-old female with a history of end-stage renal disease on hemodialysis with a recent left upper extremity AV loop graft creation on 10/24/[address] Clement presented to the emergency department with concerns of left upper extremity swelling. Patient has had swelling to the left upper extremity since after the loop graft was placed. She has been seen in the office and recommendations for elevation of the left upper extremity as well as compression for swelling have been given. Today she had a vascular ultrasound done of the upper extremity AV graft with good inflow. Edema in left arm to fingers with a patent AV graft. Patient does state that she has difficulty with moving her left arm. It is painful and uncomfortable secondary to the swelling. She has not had any dialysis from that breath. She has a left IJ tunnel catheter in place for her hemodialysis. Review of Systems A 14 point review systems was completed all pertinent positives and negatives as stated in the HPI. Past Medical History Past Medical History: Atrial Fibrillation, CVA/TIA, Hyperlipidemia, Hypertension, Osteoarthritis (OA), Renal Disease Additional Past Medical History / Comment(s): Hx TIA-no residual-yrs ago, UTIs, dizziness, gout, chronic back and bilateral shoulder pain, hemodialysis [facility]- dialysis cath left chest, pulmonary fibrosis, hx Covid May 2024, varicose veins, constipation. History of Any Multi-Drug Resistant Organisms: VRE Year Discovered:: 08/16/23 MDRO Source:: Urine Past Surgical History: Section, Hysterectomy, Joint Replacement, Orthopedic Surgery Additional Past Surgical History / Comment(s): Section X3, hysterectomy with vaginal repair, bilateral total knee replacements, right shoulder acromioplasty, excision distal clavicle rotator cuff repair, bilateral cataract removal with lens implants, left breast biopsy-benign, varicose vein stripping bilaterally, peritoneal hemodilyis catheter placement. Past Anesthesia/Blood Transfusion Reactions: No Reported Reaction Additional Past Anesthesia/Blood Transfusion Reaction / Comm: No complications with prior blood transfusion. Past Psychological History: No Psychological Hx Reported Smoking Status: Never smoker Past Alcohol Use History: None Reported Past Drug Use History: None Reported - Past Family History Brother(s) Family Medical History: Renal Disease Father Family Medical History: Unable to Obtain Mother Family Medical History: Coronary Artery Disease (CAD), CVA/TIA Additional Family Medical History / Comment(s): Mother at 92 yrs of age. She had TIA's. Medications and Allergies Home Medications Medication Instructions Recorded Confirmed Type Rosuvastatin [Crestor] 20 mg PO HS 09/15/22 10/24/24 History Apixaban [Eliquis] 2.5 mg PO BID 90 Days #180 tab 07/08/23 10/24/24 Rx Amiodarone [Cordarone] 100 mg PO BID 07/20/23 10/24/24 History Benzonatate [Tessalon Perle] 200 mg PO TID PRN 12/24/23 10/24/24 History Fluticasone Nasal [place] [Flonase 2 spray EA NOSTRIL BID PRN 12/24/23 10/24/24 History Nasal [place]] Ascorbic Acid [Vitamin C] 500 mg PO DAILY 06/21/24 10/24/24 History Cholecalciferol [Vitamin D3 (25 50 mcg PO DAILY 06/21/24 10/24/24 History Mcg = 1000 Iu)] Codeine Phosphate/Guaifenesin 10 ml PO Q8H PRN 06/21/24 10/24/24 History [Codeine Phosphate/Guaifenesin 10-100 mg/5 ml] Enulose 30 ml PO DAILY PRN 06/21/24 10/24/24 History Fluticasone Propionate 1 puff INHALATION BID 06/21/24 10/24/24 History [Fluticasone Propionate Hfa 220 MCG (Inhaler)] Midodrine [ProAmatine] 5 mg PO AC-TID PRN 06/21/24 10/24/24 History Pantoprazole [Protonix] 40 mg PO QAM 06/21/24 10/24/24 History Sevelamer [Renvela] 800 mg PO BID 06/21/24 10/24/24 History Sulfamethox-Tmp 800-160Mg [Bactrim 1 tab PO MOWEFR 06/21/24 10/24/24 History DS 800-160 mg] Lactulose 10 - 20 gm PO DAILY PRN #473 ml 09/15/24 10/24/24 Rx Allergies Allergy/AdvReac Type Severity Reaction Status Date / Time losartan [Losartan] Allergy Unknown Verified 11/19/24 12:26 tramadol Allergy Unknown Verified 11/19/24 12:26 SENG Inhibitors AdvReac Cough Verified 11/19/24 12:26 levofloxacin [From Levaquin] AdvReac Hallucinati Verified 11/19/24 12:26 ons Surgical - Exam Vital Signs Temp Pulse Resp BP Pulse Ox 97.5 F L 87 17 143/85 96 11/19/24 12:23 11/19/24 12:23 11/19/24 12:23 11/19/24 12:23 11/19/24 12:23 General appearance: The patient is alert, oriented, appears in no acute distress. HET: Head is normocephalic and atraumatic. Pupils are equal and reactive. Neck: Supple. Heart: Regular. Lungs: Equal expansion, normal respiratory effort. Abdomen: Soft, nontender, nondistended. Extremities: Normal skin color and turgor. Palpable bilateral radial pulses. Left upper extremity with significant swelling from the shoulder to her fingertips. Palpable thrill audible bruit over forearm loop graft. Neurological: No focal deficits. Strength and sensation are grossly intact. Assessment and Plan Assessment: 1. Left upper extremity swelling, likely secondary to venous congestion from graft pressure 2. Left forearm AV loop graft 3. End-stage renal disease on hemodialysis 4. Left IJ tunnel catheter Plan: 1. Will order CT left upper extremity venous phase 2. Recommend left upper extremity elevation 3. Recommend compression with Seng wrap or compression stocking to left upper extremity. This was discussed with patient and that this should be worn throughout the day. 4. If CT scan normal, patient can be discharged with follow-up with vascular surgery in 1 week Thank you for this consultation. The impression and plan of care has been dictated as directed. I performed a history and examination of this patient, discussed the same with the dictator. I agree with the dictator's note ,documented as a scribe. Any additional findings or plans will be noted.
--- NOTE | 2024-11-19 14:51 | CT ---
EXAMINATION TYPE: CT upper extremity LT w con DATE OF EXAM: 11/19/2024 2:35 PM COMPARISON: None CLINICAL INDICATION: Female, 84 years old with history of LUE swlling, AV loop graft; PHH, LUISE swedylani ng. AV Loop graft. TECHNIQUE: Axial images were obtained of the CT upper extremity LT w con, Additional coronal and sagi ttal reformatted images and soft tissue and bone window were obtained for review. 3-D reconstruction was created on a separate workstation. Contrast used:31 ml mL of Isovue 300 with IV Contrast, (None if empty) Oral contrast used: (None if empty) CT DLP: 295.5 mGycm, Automated exposure control for dose reduction was used. FINDINGS: There is a loop graft which appears to have higher density contrast within the lumen. Diffu se soft tissue swelling throughout the arm. No organizing fluid collection visualized. Moderate degeneration changes of the shoulder with fluid extending along the long head of biceps tend on. There is no evidence of fracture. No additional radiopaque foreign bodies definitely visualized. Visualized body demonstrates evidence for acute process. Bilaterally aphakia. Atherosclerosis of the arterial vasculature. Postsurgical changes of the teeth. IMPRESSION: 1. Loop arteriovenous graft which appears patent. Consider further evaluation with sonography duplex imaging. 2. Diffuse soft tissue swelling. 3. No evidence of fracture. [facility], , 11/19/2024 2:49 PM
--- NOTE | 2024-11-19 14:55 | ED ---
Extremity Problem HPI - General Chief complaint: Extremity Problem,Nontraumatic Stated complaint: Post-Op L Arm Issues Time Seen by Provider: 11/19/24 12:28 Source: patient, RN notes reviewed Mode of arrival: ambulatory Limitations: no limitations - History of Present Illness Initial comments: 84-year-old female presents emerged from chief complaint of left arm swelling. Patient states she has had increasing swelling over the last few weeks after she had dialysis graft placed in her left distal forearm. She states this was done by Dr. Clement. She did initially follow-up after for swelling advised to wrap but she states she has not been doing this. She states pain has been increasing but tolerable with Tylenol. Patient had ultrasound today showing patent graft. - Related Data Home Medications Medication Instructions Recorded Confirmed Rosuvastatin [Crestor] 20 mg PO HS 09/15/22 10/24/24 Amiodarone [Cordarone] 100 mg PO BID 07/20/23 10/24/24 Benzonatate [Tessalon Perle] 200 mg PO TID PRN 12/24/23 10/24/24 Fluticasone Nasal [place] [Flonase 2 spray EA NOSTRIL BID PRN 12/24/23 10/24/24 Nasal [place]] Ascorbic Acid [Vitamin C] 500 mg PO DAILY 06/21/24 10/24/24 Cholecalciferol [Vitamin D3 (25 50 mcg PO DAILY 06/21/24 10/24/24 Mcg = 1000 Iu)] Codeine Phosphate/Guaifenesin 10 ml PO Q8H PRN 06/21/24 10/24/24 [Codeine Phosphate/Guaifenesin 10-100 mg/5 ml] Enulose 30 ml PO DAILY PRN 06/21/24 10/24/24 Fluticasone Propionate 1 puff INHALATION BID 06/21/24 10/24/24 [Fluticasone Propionate Hfa 220 MCG (Inhaler)] Midodrine [ProAmatine] 5 mg PO AC-TID PRN 06/21/24 10/24/24 Pantoprazole [Protonix] 40 mg PO QAM 06/21/24 10/24/24 Sevelamer [Renvela] 800 mg PO BID 06/21/24 10/24/24 Sulfamethox-Tmp 800-160Mg [Bactrim 1 tab PO MOWEFR 06/21/24 10/24/24 DS 800-160 mg] Previous Rx's Medication Instructions Recorded Apixaban [Eliquis] 2.5 mg PO BID 90 Days #180 tab 07/08/23 Lactulose 10 - 20 gm PO DAILY PRN #473 ml 09/15/24 Allergies Allergy/AdvReac Type Severity Reaction Status Date / Time losartan [Losartan] Allergy Unknown Verified 11/19/24 12:26 tramadol Allergy Unknown Verified 11/19/24 12:26 SENG Inhibitors AdvReac Cough Verified 11/19/24 12:26 levofloxacin [From Levaquin] AdvReac Hallucinati Verified 11/19/24 12:26 ons Review of Systems ROS Statement: Those systems with pertinent positive or pertinent negative responses have been documented in the HPI. ROS Other: All systems not noted in ROS Statement are negative. Past Medical History Past Medical History: Atrial Fibrillation, CVA/TIA, Hyperlipidemia, Hypertension, Osteoarthritis (OA), Renal Disease Additional Past Medical History / Comment(s): Hx TIA-no residual-yrs ago, UTIs, dizziness, gout, chronic back and bilateral shoulder pain, hemodialysis [facility]- dialysis cath left chest, pulmonary fibrosis, hx Covid May 2024, varicose veins, constipation. History of Any Multi-Drug Resistant Organisms: VRE Date of last positivie culture/infection: 08/16/23 MDRO Source:: Urine Past Surgical History: Section, Hysterectomy, Joint Replacement, Orthopedic Surgery Additional Past Surgical History / Comment(s): Section X3, hysterectomy with vaginal repair, bilateral total knee replacements, right shoulder acromioplasty, excision distal clavicle rotator cuff repair, bilateral cataract removal with lens implants, left breast biopsy-benign, varicose vein stripping bilaterally, peritoneal hemodilyis catheter placement. Past Anesthesia/Blood Transfusion Reactions: No Reported Reaction Additional Past Anesthesia/Blood Transfusion Reaction / Comment(s): No complications with prior blood transfusion. Past Psychological History: No Psychological Hx Reported Smoking Status: Never smoker Past Alcohol Use History: None Reported Past Drug Use History: None Reported - Past Family History Brother(s) Family Medical History: Renal Disease Father Family Medical History: Unable to Obtain Mother Family Medical History: Coronary Artery Disease (CAD), CVA/TIA Additional Family Medical History / Comment(s): Mother at 92 yrs of age. She had TIA's. General Exam Limitations: no limitations General appearance: alert, in no apparent distress Head exam: Present: atraumatic, normocephalic, normal inspection Eye exam: Present: normal appearance, PERRL, EOMI. Absent: scleral icterus, conjunctival injection, periorbital swelling Respiratory exam: Present: normal lung sounds bilaterally. Absent: respiratory distress, wheezes, rales, rhonchi, stridor Cardiovascular Exam: Present: regular rate, normal rhythm, normal heart sounds. Absent: systolic murmur, diastolic murmur, rubs, gallop, clicks Extremities exam: Present: other (Left upper extremity is neurovascular tact with diffuse significant swelling without erythematous changes) Course Vital Signs 11/19/24 11/19/24 12:23 15:19 Temperature 97.5 F L 98.0 F Pulse Rate 87 81 Respiratory 17 24 Rate Blood Pressure 143/85 172/78 O2 Sat by Pulse 96 97 Oximetry Medical Decision Making - Medical Decision Making Was pt. sent in by a medical professional or institution (, PA, BUSINESS OBJECTS, urgent care, hospital, or fdc...) When possible be specific @ -PCP Did you speak to anyone other than the patient for history (EMS, parent, family, police, friend...)? What history was obtained from this source @ -No Did you review nursing and triage notes (agree or disagree)? Why? @ -I reviewed and agree with nursing and triage notes Were old charts reviewed (outside hosp., previous admission, EMS record, old EKG, old radiological studies, urgent care reports/EKG's, fdc records)? Report findings @ -No old charts were reviewed Differential Diagnosis (chest pain, altered mental status, abdominal pain women, abdominal pain men, vaginal bleeding, weakness, fever, dyspnea, syncope, headache, dizziness, GI bleed, back pain, seizure, CVA, palpatations, mental health, musculoskeletal)? @ -Arterial occlusion, venous occlusion, abscess, cellulitis, edema EKG interpreted by me (3pts min.). @ -[None X-rays interpreted by me (1pt min.). @ -None done CT interpreted by me (1pt min.). @ - CT left upper extremity showing diffuse soft tissue swelling patent graft no other complaints U/S interpreted by me (1pt. min.). @ -None done What testing was considered but not performed or refused? (CT, X-rays, U/S, labs)? Why? @ -None What meds were considered but not given or refused? Why? @ -None Did you discuss the management of the patient with other professionals (professionals i.e. , PA, BUSINESS OBJECTS, lab, RT, psych nurse, psychotherapist social worker, health technician hearing, teacher, privacy officer, showcase maker)? Give summary @ -Vascular who came and saw the patient ordered CT of the left upper extremity advised to wrap the arm and to be discharged if normal CT. Was smoking cessation discussed for >3mins.? @ -No Was critical care preformed (if so, how long)? @ -No Were there social determinants of health that impacted care today? How? (Homelessness, low income, unemployed, alcoholism, drug addiction, transportation, low edu. Level, literacy, decrease access to med. care, snf, rehab)? @ -No Was there de-escalation of care discussed even if they declined (Discuss DNR or withdrawal of care, Hospice)? DNR status @ -No What co-morbidities impacted this encounter? (DM, HTN, Smoking, COPD, CAD, Cancer, CVA, ARF, Chemo, Hep., AIDS, mental health diagnosis, sleep apnea, morbid obesity)? @ -None Was patient admitted / discharged? Hospital course, mention meds given and route, prescriptions, significant lab abnormalities, going to OR and other pertinent info. @Discharge patient had left upper extremity swelling status post dialysis graft patient will wrap arm as instructed, compression stocking and follow-up with vascular. Undiagnosed new problem with uncertain prognosis? @ -No Drug Therapy requiring intensive monitoring for toxicity (Heparin, Nitro, Insulin, Cardizem)? @ -No Were any procedures done? @ -No Diagnosis/symptom? @ -Left upper extremity edema Acute, or Chronic, or Acute on Chronic? @ -Acute Uncomplicated (without systemic symptoms) or Complicated (systemic symptoms)? @ -Complicated Side effects of treatment? @ -No Exacerbation, Progression, or Severe Exacerbation? @ -No Poses a threat to life or bodily function? How? (Chest pain, [place], [place], pneumonia, PE, COPD, DKA, ARF, appy, cholecystitis, CVA, Diverticulitis, Homicidal, Suicidal, threat to staff... and all critical care pts) @ -No Disposition Clinical Impression: Arm edema Disposition: HOME SELF-CARE Condition: Stable Additional Instructions: Elevate left upper extremity throughout the day. Wear compression stocking or Seng wrap to left upper extremity for swelling throughout the day. Is patient prescribed a controlled substance at d/c from ED?: No Referrals: Tanja Dexter DO [STAFF PHYSICIAN] - 1 Week Time of Disposition: 14:54
[2024-11-19 15:20] VITALS: BP 172/78; PULSE 81; RESP 24; TEMP 98
== END 2024-11-19 15:23 | disposition home or self-care (01) ==
LOC: EC 12:18
DX: R60.0 Localized edema (principal); Z88.1 Allergy status to other antibiotic agents; Z88.5 Allergy status to narcotic agent; Z88.8 Allergy status to other drugs, medicaments and biological substances; Z86.73 Personal history of transient ischemic attack (TIA), and cerebral infarction without residual deficits
CPT/HCPCS: 73201; 99284; Q9967